=== PATIENT | female | born 1985 | race Caucasian/White ===

== ENCOUNTER 2020-06-30 12:27 | Outpatient (REF) | payer MEDICAID, SELFPAY ==
--- NOTE | 2020-06-30 12:32 | CT_ITS ---
EXAMINATION: CT ABDOMEN AND PELVIS WITH CONTRAST CLINICAL INFORMATION: Lower abdominal pain. COMPARISON: CT abdomen and pelvis without contrast 05/13/2015 TECHNIQUE: Multidetector volumetric images were obtained from the superior aspect of the liver through the pubic symphysis following administration 85 mL of Omnipaque 350 intravenous contrast. Sagittal and coronal reformatted images were obtained on the technologist's workstation. Oral contrast: No. This CT examination was performed using dose optimization techniques as appropriate, variously including the following: *Automated exposure control *Adjustment of mA and/or kV according to patient size (this includes techniques or standardized protocols for targeted exams where dose is matched to indication/reason for exam; i.e. extremities or head) *Use of iterative reconstruction technique DLP: 377 mGy-cm FINDINGS: LUNG BASES: The visualized lung bases are unremarkable. LIVER, GALLBLADDER AND BILIARY TREE: The liver is normal in size, shape and attenuation. No focal hepatic lesion or biliary ductal dilatation is present. The gallbladder is unremarkable with no evidence of radiopaque gallstones, gallbladder wall thickening or obvious pericholecystic inflammatory changes. PANCREAS: Unremarkable. SPLEEN: Unremarkable. ADRENAL GLANDS: Unremarkable. KIDNEYS AND URETERS: The kidneys are normal in size, shape and attenuation. No hydronephrosis, hydroureter or calculi seen. No perinephric stranding. BLADDER: The bladder is distended without any focal lesion. GASTROINTESTINAL TRACT: There is scattered stool seen throughout the colon without any significant distention. The small bowel loops are normal caliber. There is no free air or free fluid. ABDOMINAL WALL: No significant hernia is appreciated. LYMPH NODES: Normal. VASCULAR: Unremarkable. PELVIC VISCERA: The uterus is anteverted. There is a heterogenous lesion left body of uterus measuring 5.1 x 3.4 x 4.4 cm most consistent with a fibroid. This deviates the endometrial canal to the right and posteriorly. Just superior to the uterus are the ovaries which appear unremarkable. There are small follicular cysts within. There is no free fluid in the cul-de-sac OSSEOUS STRUCTURES: No lytic or sclerotic process seen. CT/CT abdomen pelvis w con IMPRESSION: Moderate size uterine fibroid deviating endometrial canal to the right and posteriorly. Mild constipation. Distended urinary bladder without any focal lesion.
[2020-06-30] MEDS: iohexoL 350 MG/ML 100 ML INFUS..BTL IV (15:45)
[2020-06-30] MEDS: Barium Sulfate Oral (Berry) 450 ML ORAL.SUSP 900 ML PO (15:46)
== END 2020-06-30 12:28 | disposition home or self-care (01) ==
LOC: HO.CT 12:27
PROVIDERS: PCP Internal Medicine; Visit Provider Nurse Practitioner
DX: R10.30 Lower abdominal pain, unspecified (principal)
CPT/HCPCS: 74177

== ENCOUNTER 2020-07-10 07:37 | Emergency (ER) | payer MEDICAID, SELFPAY ==
[2020-07-10 07:46] VITALS: BP 141/93; PULSE 100; RESP 17; TEMP 36.6; O2SAT 100; BMI 28.3
--- NOTE | 2020-07-10 08:03 | ED_ITS ---
HPI - General Adult General Chief complaint: General Medical Stated complaint: RASH Time Seen by Provider: 07/10/20 08:03 Mode of arrival: ambulatory Limitations: no limitations History of Present Illness HPI narrative: generalized body rash, rashes started after using Dulcolax suppository patient used 3 days ago for constipation, patient otherwise declined any change in the daily routine no change of detergent, no change of bed sheet, no new clothes. Patient tried prednisone course 10 mg daily for 3 days by her PCP and Benadryl with no relief of her symptoms, patient did not like the Benadryl effect on her body and hoping not to take it again. Onset (ago): day(s) (5) Location: back, abdomen, upper extremity and lower extremity Severity: moderate Pain Consistency: constant Relieving factors: none Exacerbating factors: none Associated symptoms: denies other symptoms Related Data Previous Rx's Medication Instructions Recorded prednisone 20 mg PO BID #10 tab 07/10/20 Allergies Allergy/AdvReac Type Severity Reaction Status Date / Time No Known Allergies Allergy Verified 07/10/20 07:49 Review of Systems Review of Systems: All other systems are reviewed and are negative Constitutional: Reports as per HPI and Reports no additional constitutional complaints Eyes: Reports as per HPI and Reports no additional eye complaints Reports system reviewed and no additional complaints, except as documented Cardiovascular: Reports as per HPI and Reports no additional cardiovascular complaints Respiratory: Reports as per HPI and Reports no additional respiratory complaints Gastrointestinal: Reports as per HPI and Reports no additional gastrointestinal complaints Genitourinary: Reports no additional female genitourinary complaints Musculoskeletal: Reports no additional musculoskeletal complaints Skin/Breast: Reports system reviewed and no additional complaints, except as docu Psychiatric: Reports no additional psychiatric complaints Endocrine: Reports no additional endocrine complaints Hematologic/Lymphatic: Reports no additional hematologic/lymphatic complaints Allergic/Immunologic: Reports no additional allergic/immunologic complaints Reports system reviewed and no additional complaints, except as documented and Reports Abnormal speech present COUNT INCLUDES THE [facility] Past Medical History Medical History No known health problems Social History Social History Advance Directives: Yes Advance Directives Information Provided: Yes Advance Directives on File: No Physical Exam Vital Signs: Vital Signs: Vital Signs Temp Pulse Resp BP Pulse Ox 07/10/20 07:46 97.8 F 100 17 141/93 H 100 Body Mass Index 28.3 vital signs have been reviewed as normal and appeared to be correct. Blood pressure On the high range. Heart rate normal. Respiration rate normal. Temperature normal. Oxygen saturation normal. Appearance: Alert. Oriented X3. No acute distress. Head: Normal external exam. Normocephalic. Atraumatic. No Mendez signs noted. No raccoon eyes noted Eyes: PERRLA. EOMI. Conjunctiva and sclera normal. Eyelids normal. ENT: EAC normal. TM's Normal. Pharynx normal. Uvula midline. Moist mucous membranes. No trismus noted. No drooling noted. No muffled voice noted. Neck: Normal inspection. Neck supple. FROM. No adenopathy. Thyroid Normal. No meningeal signs. No neck mass noted. Patent airway with no stridor. CVS: Normal heart rate and rhythm. Heart sound normal. No murmurs noted. Pulses normal throughout. Respiratory: No respiratory distress. Painless inspiration. Breath sounds normal. No wheezes/rales/rhonchi noted. Chest nontender. No accessory muscle usage noted or decreased air movement noted. Abdomen: Soft and nontender. Bowel sounds normal in all 4 quadrants. No distention noted. No organomegaly noted. No visible injury noted. Back: No CVA tenderness. Full range of motion noted. Skin: Skin warm and dry. Normal skin color. Normal skin turgor, diffuse hives on the extensor surface of both upper extremities in the back of the knee. Extremities: No lower extremity edema. Extremities exhibit normal range of motion. Extremities nontender. Neuro: Oriented X 3. No motor deficit. No sensory deficit. Reflexes normal. Medical Decision Making MDM Narrative Medical decision making narrative: Assessment and plan. 34-year-old female presented with 5 days history of diffuse hives after used 1 time of Ducolox suppository, patient declined any other change in her daily routine. Assuming that the offending agent is ducolox, patient was advised never use it again, patient used steroid for 3 days 20 mg daily with no relief will try another 5 days oral course of prednisone 40 mg daily, patient prefer not to use Benadryl again. Discharge Plan Discharge Clinical Impression: Urticaria Patient Disposition: Home, Self-Care Instructions: Urticaria (ED) Prescriptions: New prednisone 20 mg tablet 20 mg PO BID Qty: 10 RF: 0 Referrals: Eunice Warner MD [Primary Care Provider] - 2 days
== END 2020-07-10 08:16 | disposition home or self-care (01) ==
PROVIDERS: Emergency Provider Emergency Medicine; PCP Family Medicine
DX: L50.9 Urticaria, unspecified (principal)
CPT/HCPCS: 99283

== ENCOUNTER → 2020-07-14 11:44 | Outpatient (BNVA) | payer MEDICAID, SELFPAY | PROVIDERS: PCP Family Medicine; Referring Provider Family Medicine; Visit Provider Nurse Practitioner | DX: R13.10 Dysphagia, unspecified (principal); R10.30 Lower abdominal pain, unspecified; K21.9 Gastro-esophageal reflux disease without esophagitis; K59.04 Chronic idiopathic constipation; K64.9 Unspecified hemorrhoids; D25.9 Leiomyoma of uterus, unspecified | CPT/HCPCS: 99212 ==

== ENCOUNTER → 2020-08-01 12:31 | Outpatient (REF) | payer MEDICAID, SELFPAY ==
--- NOTE | 2020-08-01 12:38 | ECG_ITS ---
Hook-up date: 2020-08-01 12:49:00 Duration: 26:05:00 Test Indications: PALPITATIONS Medications: [id number] QRS complexes 2 Ventricular ectopics which represent <1 % of total QRS comp. 2 Supraventricular ectopics which represent <1 % of total QRS comp. * Paced QRS complexs which represent % of total QRS comp. VENTRICULAR ECTOPY 2 Isolated 0 Bigeminal Cycles 0 Couplets 0 Runs 0 Beats in Runs * Beats LONGEST at * BPM at :: -- * Beats FASTEST at * BPM at :: -- SUPRAVENTRICULAR ECTOPY 2 Isolated 0 Couplets 0 Runs 0 Beats in Runs * Beats LONGEST at * BPM at :: -- * Beats FASTEST at * BPM at :: -- HEART RATES 60 MIN at 05:01:18 2020-08-02 81 AVG 135 MAX at 05:53:40 2020-08-02 LONGEST RR 1.0160 secs at 05:04:28 2020-08-02 S-T LEVELS Channel 1 - 128 mm at 12:49:00 2020-08-01 - 128 mm at 12:49:00 2020-08-01 Channel 2 - 128 mm at 12:49:00 2020-08-01 - 128 mm at 12:49:00 2020-08-01 Channel 3 - 128 mm at 03:20:81 -- - 128 mm at 03:20:81 Basic rhythm Normal sinus rhythm No long pause or profound bradycardia No dangerous dysrhythm periods Patient did not report any symptoms in the diary Referred By: Jah Valle Overread By: SUGEY SMITH MD
== END ==
LOC: HO.CARD 12:31
PROVIDERS: PCP Family Medicine; Visit Provider Internal Medicine
DX: R00.2 Palpitations (principal)
CPT/HCPCS: 93225; 93226

== ENCOUNTER 2020-09-15 07:16 | Emergency (ER) | payer MEDICAID, SELFPAY ==
[2020-09-15 08:02] VITALS: BP 156/85; PULSE 93; RESP 16; TEMP 37.2; O2SAT 100; BMI 24.7
--- NOTE | 2020-09-15 08:27 | ED_ITS ---
HPI - General Adult General Chief complaint: General Medical Stated complaint: numbness, tingling hands feet Time Seen by Provider: 09/15/20 08:10 Source: patient Mode of arrival: ambulatory Limitations: no limitations History of Present Illness HPI narrative: Patient presents to ED for 7 days of numbness/tingling of hands and feet. Patient states also having posterior headache for 7 days. Patient denies any neck pain, neck stiffness, fever, chills, chest pain, shortness of breath, loss of vision, slurred speech, or paralysis of extremities. Denies Any recent head trauma. Patient admits to history of migraines. Related Data Home Medications Medication Instructions Recorded Confirmed docusate sodium 100 mg capsule 100 mg PO DAILY 07/13/20 07/13/20 methylcellulose (laxative) 500 mg 500 mg PO BID 07/13/20 07/13/20 tablet plecanatide 3 mg tablet 3 mg PO DAILY 07/13/20 07/13/20 Previous Rx's Medication Instructions Recorded prednisone 20 mg PO BID #10 tab 07/10/20 dexlansoprazole 60 mg 60 mg PO DAILY #30 cap 07/14/20 capsule,biphase delayed release hydrocortisone 2.5 % topical cream 1 applic ID BID PRN #30 g 07/14/20 with perineal applicator magnesium oxide 500 mg capsule 500 mg PO BID #60 cap 07/14/20 sennosides 8.6 mg capsule 17.2 mg PO BEDTIME 30 Days #60 cap 07/14/20 dicyclomine 10 mg capsule 10 mg PO QID PRN 30 Days #120 cap 08/25/20 hydrocortisone 2.5 % topical cream 1 appl ID BID PRN #30 g 08/25/20 with perineal applicator naproxen 500 mg PO BID PRN #20 tab 09/15/20 Allergies Allergy/AdvReac Type Severity Reaction Status Date / Time No Known Allergies Allergy Verified 07/14/20 11:49 Review of Systems Review of Systems: Yes all other systems are reviewed and are negative Constitutional: Constitutional: Reports as per HPI, Reports no additional constitutional complaints and Reports headache(s) Eyes: Eyes: Reports as per HPI and Reports no additional eye complaints ENT: Reports system reviewed and no additional complaints, except as documented, Reports as per HPI, Denies vertigo and Reports headache(s) Cardiovascular: Cardiovascular: Reports as per HPI, Reports no additional cardiovascular complaints, Denies chest pain, Denies syncope, Denies dyspnea and Denies dyspnea on exertion Respiratory: Respiratory: Reports as per HPI, Reports no additional respiratory complaints, Denies dyspnea and Denies dyspnea on exertion Gastrointestinal: Gastrointestinal: Reports as per HPI and Reports no additional gastrointestinal complaints Genitourinary: Genitourinary: Reports no additional female genitourinary complaints and Reports as per HPI Musculoskeletal: Musculoskeletal: Reports no additional musculoskeletal complaints, Reports as per HPI and Reports tingling (Hands and feet) Neurologic: Reports system reviewed and no additional complaints, except as documented, Reports as per HPI, Denies vertigo, Denies syncope, Reports headache(s), Reports tingling (Hands and feet) and Reports paresthesias (Ended) Psychiatric: Psychiatric: Reports no additional psychiatric complaints and Reports as per HPI [facility] Past Medical History Medical History (Updated 09/15/20 @ 12:07 by ONEL Herrera) Candidiasis of mouth and esophagus No known health problems Odynophagia Surgical History (Updated 07/14/20 @ 11:52 by NELLY Ram) History of esophagogastroduodenoscopy (EGD) Hx of colonoscopy Family History Family History (Updated 07/14/20 @ 11:54 by NELLY Ram) Father CVD (cardiovascular disease) Colon polyps Hypercholesteremia Diabetes Mother Thyroid condition CVD (cardiovascular disease) Fibromyalgia Heart problem Social History Social History (Updated 07/14/20 @ 11:55 by NELLY Ram) Alcohol intake: current Alcohol intake frequency: does not drink Smoking Status: Never smoker Smoked in Last 30 Days: No Use of substances other than those prescribed or required for medical reasons: No Advance Directives: No Advance Directives Information Provided: Yes Physical Exam Vital Signs: Vital Signs: Last Vital Signs Temp 98.8 F 09/15/20 10:21 Pulse 80 09/15/20 10:21 Resp 16 09/15/20 10:21 BP 103/58 L 09/15/20 10:21 Pulse Ox 100 09/15/20 10:21 Body Mass Index 24.7 Const: General: cooperative, healthy appearing, comfortable, no acute distress, well developed, alert, awake and Physically active Orientation/consciousness: patient oriented x3 HENMT: Head: Yes normal to inspection, Yes No palpable skull fracture present and Yes normocephalic Ears: hearing grossly normal bilaterally, external ears normal, TM's normal bilaterally and EAC's normal Eyes: Other: Negative for nystagmus General: appearance normal, both eyes and all related structures Neck: Neck: Yes normal visual inspection, Yes full ROM, Yes no lymphadenopathy, Yes no meningeal signs, Yes trachea midline, Yes supple and No tender Chest: Chest palpation & inspection: normal inspection of the chest and normal palpation of entire chest wall Resp: Effort & Inspection: normal respiratory effort and able to speak in complete sentences Auscultation: clear to auscultation bilaterally Cardio: Jugular venous distension: no JVD Heart sounds: S1 normal heart sound present and S2 normal heart sound present GI: Inspection: Yes normal to inspection and No abdominal wall ecchymosis Palpation (GI): Soft to palpation, not firm, nontender, no guarding and not rigid : General: No CVA tenderness and Yes no CVA tenderness Back/Spine/Pelvis: Back: no CVA tenderness, No CVA tenderness and No back tenderness Skin: General skin exam: no rashes or lesions noted and elasticity normal Neuro: Other: Negative facial droop. Negative pronator drift. Speech is no rmal. All extremities motor exam is intact and strength is equal. All extremities neurovascular exam is intact. Negative Romberg. Rapid hand movement is intact. [id number] movement is intact. General: patient oriented x3, gait normal, no meningeal signs and CN's II-XI intact bilaterally Cranial nerves: Yes CN's II-XII intact bilaterally Extrem: General: Yes normal to inspection and Yes full ROM Psych: Appearance: grossly normal, well kempt and not disheveled Course Course Course Narrative: Patient's history of migraine this presents as complicated rocco gina exacerbation. Patient will have head CT scan mentioned is no mass or bleed. Very unlikely this is a stroke. Neuro exam is intact. Not suspect a meningitis. Will draw labs to make sure there is no signs of electrolyte deficiency or dehydration. Reevaluation(s) Reevaluation #1: Patient's labs negative for any electrolyte abnormalities. Head CT scan came back negative for any stroke or bleed. Once again negative f or any neuro deficit. Patient will be given and Reglan. Patient's EKG came back normal. Troponin negative Time: 10:10 Reevaluation #2: Patient headache resolved after receiving meds. Patient informed to follow-up with neurology. Time: 10:55 Medical Decision Making MDM Narrative Medical decision making narrative: Migraine Lab Data Result diagrams: 09/15/20 08:41 09/15/20 08:41 Labs: Lab Results 09/15/20 09/15/20 09/15/20 Range/Units 08:41 08:41 08:41 WBC 8.0 (4.8-10.8) X10*3/uL RBC 4.74 (4.20-5.50) X10*6/uL Hgb 12.3 (12.0-16.0) g/dl Hct 36.9 L (37-47) % MCV 77.8 L (80-98) fL MCH 25.9 L (27.0-33.0) pg MCHC 33.3 (31.0-35.0) g/dl RDW 12.6 (11.0-16.0) % Plt Count 237 (160-400) X10*3/uL MPV 10.3 (9.4-12.3) fL Immature Gran % (Auto) 0.2 (0.0-0.4) % Neut % (Auto) 63.9 (45-73) % Lymph % (Auto) 28.3 (20-40) % Tucker % (Auto) 6.5 (2-11) % Eos % (Auto) 0.6 (0-4) % Baso % (Auto) 0.5 (0-2) % Lymph # (Auto) 2.3 (1.2-4.9) X10*3/uL Tucker # (Auto) 0.5 (0.1-1.2) X10*3/uL Eos # (Auto) 0.1 (0.0-0.4) X10*3/uL Baso # (Auto) 0.0 (0.0-0.2) X10*3/uL Abs Immat Gran (auto) 0.02 (0.00-0.03) X10*3/uL Absolute Neuts (auto) 5.1 (2.0-8.3) X10*3/uL Absolute Nucleated RBC 0.000 (0.0-0.012) X10*3/uL Nucleated RBC % (auto) 0.0 (0.0-0.2) /100WBC PT 13.1 H (10.8-13.0) SEC INR 1.1 (0.9-1.1) APTT 38.3 H (24.1-38.0) SEC Sodium 141 (135-145) mmol/L Potassium 4.4 (3.3-5.1) mmol/l Chloride 106 (96-108) mmol/L Carbon Dioxide 27 (22-29) mmol/L Anion Gap 12 (12-20) BUN 8 L (9-16) mg/dL Creatinine 0.68 (0.5-1.4) mg/dL Estim Creat Clear Calc 108.0 Estimated GFR > 60 Random Glucose 113 (60-115) mg/dL Calcium 9.2 (8.4-10.2) mg/dL Magnesium 1.8 (1.6-2.6) mg/dL Total Bilirubin 0.5 (0.0-1.0) mg/dL AST 15 (5-31) U/L ALT 14 (0-31) U/L Alkaline Phosphatase 67 (39-117) U/L Total Creatine Kinase 50 (26-140) U/L Troponin I High Sens (<3.5-17.0) ng/L Total Protein 7.2 (6.5-8.0) g/dL Albumin 4.2 (3.5-5.0) g/dL Beta HCG, Quant < 2 mIU/mL 09/15/20 Range/Units 11:14 WBC (4.8-10.8) X10*3/uL RBC (4.20-5.50) X10*6/uL Hgb (12.0-16.0) g/dl Hct (37-47) % MCV (80-98) fL MCH (27.0-33.0) pg MCHC (31.0-35.0) g/dl RDW (11.0-16.0) % Plt Count (160-400) X10*3/uL MPV (9.4-12.3) fL Immature Gran % (Auto) (0.0-0.4) % Neut % (Auto) (45-73) % Lymph % (Auto) (20-40) % Tucker % (Auto) (2-11) % Eos % (Auto) (0-4) % Baso % (Auto) (0-2) % Lymph # (Auto) (1.2-4.9) X10*3/uL Tucker # (Auto) (0.1-1.2) X10*3/uL Eos # (Auto) (0.0-0.4) X10*3/uL Baso # (Auto) (0.0-0.2) X10*3/uL Abs Immat Gran (auto) (0.00-0.03) X10*3/uL Absolute Neuts (auto) (2.0-8.3) X10*3/uL Absolute Nucleated RBC (0.0-0.012) X10*3/uL Nucleated RBC % (auto) (0.0-0.2) /100WBC PT (10.8-13.0) SEC INR (0.9-1.1) APTT (24.1-38.0) SEC Sodium (135-145) mmol/L Potassium (3.3-5.1) mmol/l Chloride (96-108) mmol/L Carbon Dioxide (22-29) mmol/L Anion Gap (12-20) BUN (9-16) mg/dL Creatinine (0.5-1.4) mg/dL Estim Creat Clear Calc Estimated GFR Random Glucose (60-115) mg/dL Calcium (8.4-10.2) mg/dL Magnesium (1.6-2.6) mg/dL Total Bilirubin (0.0-1.0) mg/dL AST (5-31) U/L ALT (0-31) U/L Alkaline Phosphatase (39-117) U/L Total Creatine Kinase (26-140) U/L Troponin I High Sens < 3.5 (<3.5-17.0) ng/L Total Protein (6.5-8.0) g/dL Albumin (3.5-5.0) g/dL Beta HCG, Quant mIU/mL ECG Data Interpretation: Normal sinus rhythm. Ventricular rate 75. ID interval 160. QRS duration 86. QTC 422. Negative STEMI Discharge Plan Discharge Clinical Impression: Paresthesia, Migraine, Headache Patient Disposition: Home, Self-Care Instructions: Migraine Headache (ED), Paresthesia (ED), General Headache (ED) Additional Instructions: Return to the ED for any slurred speech, loss of vision, paralysis of extremities, weakness, or signing headache, or any other concerning symptoms. Prescriptions: New naproxen 500 mg tablet 500 mg PO BID PRN (Reason: pain) Qty: 20 RF: 0 No Action dicyclomine 10 mg capsule 10 mg PO QID PRN (Reason: for cramps) 30 Days Qty: 120 RF: 3 prednisone 20 mg tablet 20 mg PO BID Qty: 10 RF: 0 Trulance 3 mg tablet 3 mg PO DAILY RF: 0 docusate sodium [Colace] 100 mg capsule 100 mg PO DAILY RF: 0 Citrucel 500 mg tablet 500 mg PO BID RF: 0 magnesium oxide 500 mg capsule 500 mg PO BID Qty: 60 RF: 6 senna 8.6 mg capsule 17.2 mg PO BEDTIME 30 Days Qty: 60 RF: 1 hydrocortisone [Anusol-HC] 2.5 % cream with perineal applicator 1 applic ID BID PRN (Reason: hemorrhoids) Qty: 30 RF: 3 Dexilant 60 mg capsule,biphase delayed releas 60 mg PO DAILY Qty: 30 RF: 6 hydrocortisone [Proctosol HC] 2.5 % cream with perineal applicator 1 appl ID BID PRN (Reason: hemorrhoids) Qty: 30 RF: 3 Referrals: Abhijeet Oconnell MD [Physician] - 2 days (Paresthesia/migraine headache. Past medical history of migraine. Seen in the ED for headache and paresthesia. Head CT scan came back normal. Labs came back negative for electrolyte de ficiency. Neuro exam is intact) Stand Alone Forms: Work/School Release Interventions: ED Discharge Assessment Last Done: 09/15/20 12:35 Discharge Date/Time: 09/15/20 12:36 Print Language: Malaysian
--- NOTE | 2020-09-15 08:28 | CT_ITS ---
EXAMINATION: CT HEAD WITHOUT CONTRAST CLINICAL INFORMATION: Persistent headache, 7 days COMPARISON: CT head noncontrast 09/23/2019 TECHNIQUE: Contiguous axial imaging was performed from the skull base to vertex without intravenous administration of contrast. Additional 2-D coronal and sagittal reformatted images are generated on the CT workstation and uploaded to PACS. This CT examination was performed using dose optimization techniques as appropriate, variously including the following: *Automated exposure control *Adjustment of mA and/or kV according to patient size (this includes techniques or standardized protocols for targeted exams where dose is matched to indication/reason for exam; i.e. extremities or head) *Use of iterative reconstruction technique DLP: 611 mGy-cm FINDINGS: There is no intracranial hemorrhage, hematoma, or extra-axial fluid collection. The ventricles are normal in size. There is no hydrocephalus, edema, or mass effect. The harrell-white matter differentiation appears symmetric. There is no visible acute territorial infarct or mass lesion. The calvarium appears intact. There is no pneumocephalus or orbital emphysema. The visualized sinuses and middle ears and mastoid air cells show no significant mucosal thickening. There are no air-fluid levels. CT/CT head/brain wo con IMPRESSION: No acute intracranial abnormality.
[2020-09-15] MEDS: 0.9 % Sodium Chloride 1,000 ML 999 ML IV (08:41)
[2020-09-15 08:52] LABS: Basophils Percent Auto 0.5 % (0-2); Eosinophils Absolute Auto 0.1 X10*3/uL (0.0-0.4); Eosinophils Percent Auto 0.6 % (0-4); Hematocrit 36.9 % (37-47); Hemoglobin 12.3 g/dl (12.0-16.0); Imm Gran Abs Auto 0.02 X10*3/uL (0.00-0.03); Imm Gran Pct Auto 0.2 % (0.0-0.4); Lymphocytes Absolute Auto 2.3 X10*3/uL (1.2-4.9); Lymphocytes Percent Auto 28.3 % (20-40); MANUAL DIFF FLAG NO; Mean Corpuscular HGB Conc 33.3 g/dl (31.0-35.0); Mean Corpuscular Hemoglobin 25.9 pg (27.0-33.0); Mean Corpuscular Volume 77.8 fL (80-98); Mean Platelet Volume 10.3 fL (9.4-12.3); Monocytes Absolute Auto 0.5 X10*3/uL (0.1-1.2); Monocytes Percent Auto 6.5 % (2-11); Neutrophils Absolute Auto 5.1 X10*3/uL (2.0-8.3); Neutrophils Percent Auto 63.9 % (45-73); Platelet Count 237 X10*3/uL (160-400); Red Blood Count 4.74 X10*6/uL (4.20-5.50); Red Cell Distribution Width 12.6 % (11.0-16.0)
[2020-09-15 09:00] LABS: INTERNATIONAL NORM RATIO 1.1 (0.9-1.1); Prothrombin Time 13.1 SEC (10.8-13.0)
[2020-09-15 09:03] LABS: Partial Thromboplastin Time 38.3 SEC (24.1-38.0)
[2020-09-15 09:17] LABS: Alanine Aminotransferase 14 U/L (0-31); Albumin Level 4.2 g/dL (3.5-5.0); Alkaline Phosphatase 67 U/L (39-117); Anion Gap 12 (12-20); Aspartate Amino Transferase 15 U/L (5-31); Bilirubin Total 0.5 mg/dL (0.0-1.0); Blood Urea Nitrogen 8 mg/dL (9-16); Calcium 9.2 mg/dL (8.4-10.2); Carbon Dioxide 27 mmol/L (22-29); Chloride 106 mmol/L (96-108); Estimated Glomerular Filt Rate > 60; Glucose Random 113 mg/dL (60-115); Magnesium 1.8 mg/dL (1.6-2.6); Potassium 4.4 mmol/l (3.3-5.1); Sodium 141 mmol/L (135-145); Total Protein 7.2 g/dL (6.5-8.0)
[2020-09-15 09:23] LABS: HCG Quantitative < 2 mIU/mL
[2020-09-15 10:21] VITALS: BP 103/58; PULSE 80; RESP 16; TEMP 37.1; O2SAT 100
[2020-09-15] MEDS: Ketorolac Tromethamine 30 MG/ML VIAL IVPUSH (10:23)
[2020-09-15] MEDS: Metoclopramide HCl 10 MG/2 ML VIAL IVPUSH (10:23)
--- NOTE | 2020-09-15 10:55 | ECG_ITS ---
Test Reason : BACK PAIN Blood Pressure : / mmHG Vent. Rate : 075 BPM Atrial Rate : 075 BPM P-R Int : 160 ms QRS Dur : 086 ms QT Int : 378 ms P-R-T Axes : 070 046 022 degrees QTc Int : 422 ms Normal sinus rhythm with sinus arrhythmia Normal ECG When compared with ECG of 29-JUL-2019 09:27, No significant change was found Referred By: Td Hernandez Electronically Signed By:Eze Phan
[2020-09-15 11:52] LABS: Troponin-I High Sensitivity < 3.5 ng/L (<3.5-17.0)
== END 2020-09-15 12:36 | disposition home or self-care (01) ==
PROVIDERS: Physician Assistant; Emergency Provider Emergency Medicine Emergency Medical Services; PCP Internal Medicine
DX: R20.2 Paresthesia of skin (principal); G43.909 Migraine, unspecified, not intractable, without status migrainosus
CPT/HCPCS: 36415; 70450; 80053; 82550; 83735; 84484; 84702; 85025; 85610; 85730; 93005; 96361; 96374; 96375; 99284; J1885; J2765

== ENCOUNTER → 2020-10-06 14:31 | Outpatient (BNVA) | payer MEDICAID, SELFPAY | PROVIDERS: PCP Internal Medicine; Visit Provider Nurse Practitioner ==

== ENCOUNTER 2020-10-12 08:54 | Outpatient (REF) | payer MEDICAID, SELFPAY ==
--- NOTE | 2020-10-12 | FL_ITS ---
EXAMINATION: FL UPPER GI AIR-CONTRAST STUDY WITH SMALL BOWEL FOLLOW-THROUGH CLINICAL INFORMATION: Lower abdominal pain. COMPARISON: None. TECHNIQUE: Upper GI air contrast study with small bowel follow-through. FINDINGS: Physical Therapy Instructor view of the abdomen reveals scattered stool and gas in the colon. No radiopaque calculi seen. There is no gross organomegaly. Visualized bones are unremarkable. Following oral administration of thick barium and effervescent granules, there is normal propagation of bolus from the oral cavity through the pharynx and esophagus and into the stomach without any evidence of obstruction, narrowing or stricture. On placing patient supine and prone lying, the course, caliber and peristalsis of the stomach are normal. The mucosal pattern of the esophagus and the stomach is normal. Sequential images of small bowel loops reveals the course, caliber and peristalsis of the small bowel is normal. No mucosal irregularity of mural thickening seen. The ileocecal junction and the cecum is normal. The appendix is not seen. Patient has no history of appendectomy. FL/FL small bowel follow through IMPRESSION: Unremarkable upper GI air-contrast study. Normal small bowel transit time of less than 90 minutes. No significant small bowel abnormality seen. Appendix was not seen. FLUOROSCOPY TIME: 0.8 minutes. DOSE AREA PRODUCT: 6.182 minutes. IMAGES: 10.
--- NOTE | 2020-10-12 08:56 | FL_ITS ---
EXAMINATION: FL UPPER GI AIR-CONTRAST STUDY WITH SMALL BOWEL FOLLOW-THROUGH CLINICAL INFORMATION: Lower abdominal pain. COMPARISON: None. TECHNIQUE: Upper GI air contrast study with small bowel follow-through. FINDINGS: Lead Network Engineer view of the abdomen reveals scattered stool and gas in the colon. No radiopaque calculi seen. There is no gross organomegaly. Visualized bones are unremarkable. Following oral administration of thick barium and effervescent granules, there is normal propagation of bolus from the oral cavity through the pharynx and esophagus and into the stomach without any evidence of obstruction, narrowing or stricture. On placing patient supine and prone lying, the course, caliber and peristalsis of the stomach are normal. The mucosal pattern of the esophagus and the stomach is normal. Sequential images of small bowel loops reveals the course, caliber and peristalsis of the small bowel is normal. No mucosal irregularity of mural thickening seen. The ileocecal junction and the cecum is normal. The appendix is not seen. Patient has no history of appendectomy. FL/FL upper GI w air IMPRESSION: Unremarkable upper GI air-contrast study. Normal small bowel transit time of less than 90 minutes. No significant small bowel abnormality seen. Appendix was not seen. FLUOROSCOPY TIME: 0.8 minutes. DOSE AREA PRODUCT: 6.182 minutes. IMAGES: 10.
== END 2020-10-12 08:55 | disposition home or self-care (01) ==
LOC: HO.XRAY 08:54
PROVIDERS: PCP Internal Medicine; Visit Provider Nurse Practitioner
DX: R10.30 Lower abdominal pain, unspecified (principal); K59.04 Chronic idiopathic constipation
CPT/HCPCS: 74246; 74248; 74250

== ENCOUNTER → 2020-11-11 10:57 | Outpatient (BNVA) | payer MEDICAID, SELFPAY | PROVIDERS: PCP Internal Medicine; Visit Provider Nurse Practitioner ==

== ENCOUNTER 2020-12-06 09:17 | Outpatient (REF) | payer MEDICAID, SELFPAY ==
--- NOTE | ~2020-12-06 | US_ITS ---
EXAMINATION: US ABDOMEN LIMITED CLINICAL INFORMATION: Right upper quadrant pain. COMPARISON: CT abdomen pelvis 06/30/2020. X-ray abdomen 10/19/2019. Ultrasound abdomen 07/11/2015 and 03/11/2015. TECHNIQUE: Real-time imaging of the right upper quadrant abdominal viscera. FINDINGS: PANCREAS: Normal. LIVER: The liver is normal in size. The liver contour is normal. There is increased hepatic echogenicity. No focal hepatic lesion. There is no intrahepatic biliary duct dilatation seen. GALLBLADDER: Normal. The gallbladder is physiologically distended without evidence of stones, sludge, polyps, wall thickening or pericholecystic fluid. COMMON BILE DUCT: Normal in caliber measuring 0.5 cm in diameter. RIGHT KIDNEY: Normal. No hydronephrosis. No renal calculi or focal parenchymal lesions. The kidney measures 10.3 cm in maximum dimension. FREE FLUID: None. US/US abdomen limited IMPRESSION: Mild hepatic steatosis without focal lesion. The rest of the limited abdominal ultrasound is unremarkable.
== END 2020-12-06 09:18 | disposition home or self-care (01) ==
LOC: HO.US 09:17
PROVIDERS: Visit Provider Nurse Practitioner
DX: R10.11 Right upper quadrant pain (principal)
CPT/HCPCS: 76705

== ENCOUNTER 2020-12-13 14:39 | Outpatient (REF) | payer MEDICAID, SELFPAY ==
[2020-12-13 16:13] LABS: Glucose Urine UA NEG (NEG); Leukocyte Esterase Urine NEG (NEG); Nitrite Urine NEG (NEG); PH 7.5 (5.0-8.0); Urine Blood NEG (NEG); Urine Ketones 5 MG/DL (NEG); Urine Protein NEG (NEG-TRACE)
[2020-12-13 16:18] LABS: Appearance Urine CLEAR; Color Urine YELLOW
[2020-12-13 16:37] LABS: Amylase 92 U/L (28-100); Lipase 26 U/L (8-78)
[2020-12-14 13:02] LABS: Transglutaminase Ab IgG 2 U/mL; Transglutaminase IgA 1 U/mL
[2020-12-14 13:21] LABS: Gliadin Deamidated IgA Ab 2 Units; Gliadin Deamidated IgG Ab 2 Units
== END 2020-12-13 14:40 | disposition home or self-care (01) ==
LOC: HO.LAB 14:39
PROVIDERS: PCP Internal Medicine; Visit Provider Nurse Practitioner
DX: K21.9 Gastro-esophageal reflux disease without esophagitis (principal); K59.04 Chronic idiopathic constipation; R13.10 Dysphagia, unspecified; R10.11 Right upper quadrant pain; B37.0 Candidal stomatitis; B37.81 Candidal esophagitis
CPT/HCPCS: 36415; 81003; 82150; 83516; 83690; 99212

== ENCOUNTER 2020-12-29 08:46 | Outpatient (REF) | payer MEDICAID, SELFPAY ==
[2020-12-29 11:18] LABS: C Reactive Protein 0.52 mg/dL (< or = 0.50)
[2020-12-29 11:20] LABS: Thyroid Stimulating Hormone 1.01 uIU/mL (0.32-4.0)
[2020-12-29 11:30] LABS: Rheumatoid Factor < 15.0 IU/mL (<15.0)
[2020-12-29 12:15] LABS: Erythrocyte Sedimentation Rate 23 MM/HR (0-20)
[2020-12-30 12:33] LABS: Antibody to SS-A Antigen <1.0 NEG AI (<1.0 NEG); Antibody to SS-B Antigen <1.0 NEG AI (<1.0 NEG)
[2020-12-30 22:42] LABS: Anti Nuclear Antibody Screen POSITIVE (NEGATIVE)
[2021-01-03 12:02] LABS: Cyclic Citrullinated Peptide <16 UNITS
[2021-01-05 17:06] LABS: Vitamin D 25-OH, D2 <4 ng/mL; Vitamin D 25-OH, D3 25 ng/mL; Vitamin D 25-OH, Total 25 ng/mL (30-100)
== END 2020-12-29 08:47 | disposition home or self-care (01) ==
LOC: HO.LAB 08:46
PROVIDERS: PCP Internal Medicine; Visit Provider Student in an Organized Health Care Education/Training Program
DX: M25.50 Pain in unspecified joint (principal); Z79.899 Other long term (current) drug therapy
CPT/HCPCS: 36415; 82306; 84443; 85652; 86038; 86039; 86140; 86200; 86235; 86431; 99202

== ENCOUNTER → 2021-01-19 13:21 | Outpatient (BNVA) | payer MEDICAID, SELFPAY | PROVIDERS: Visit Provider Nurse Practitioner ==

== ENCOUNTER 2021-01-31 13:32 | Outpatient (REF) | payer MEDICAID, SELFPAY ==
--- NOTE | ~2021-01-31 | XR_ITS ---
EXAMINATION: XR CERVICAL SPINE CLINICAL INFORMATION: Dysphagia, unspecified. COMPARISON: Barium swallow and upper GI 10/12/2020, radiographs cervical spine 07/15/2013 TECHNIQUE: Three views of the cervical spine were obtained. FINDINGS: There is straightening and mild reversal of cervical lordosis with mild rightward tilting on AP view, similar to prior exam 2012. The odontoid appears intact. The vertebral bodies are normal in height. There is no cervical vertebral compression, spondylolisthesis, destructive process, or prevertebral soft tissue swelling. Degenerative disc changes are present at C4-C5 and C5-C6 with mild disc narrowing and vertebral spurring. No cervical rib. Visualized lung apices clear. XR/XR cervical spine 3V IMPRESSION: Degenerative disc changes C4-C5 and C5-C6.
--- NOTE | ~2021-01-31 | XR_ITS ---
EXAMINATION: XR THORACOLUMBAR SPINE CLINICAL INFORMATION: Pain. COMPARISON: Cervical spine radiographs 01/31/2021, 07/15/2013, chest radiographs 07/29/2019. TECHNIQUE: Thoracic spine is imaged in 3 views FINDINGS: There is normal thoracic segmentation with 12 rib-bearing thoracic vertebrae of normal height and normal thoracic kyphosis. There is a mild dextrocurvature lower thoracic spine similar to chest radiograph 2019. There is no thoracic vertebral compression, spondylolisthesis, destructive process, or paraspinal soft tissue swelling. There are mild degenerative disc changes T7-T8 and T8-T9 with borderline disc narrowing and vertebral spurring similar to chest radiograph 2019. Visualized lungs appear clear. XR/XR thoracic spine 2V IMPRESSION: 1. Mild dextrocurvature lower thoracic spine. 2. Mild degenerative disc changes T7-T9. 3. No vertebral compression, spondylolisthesis, or destructive process.
[2021-01-31 14:44] LABS: MANUAL DIFF FLAG NO
[2021-01-31 14:48] LABS: Basophils Absolute Auto 0.1 X10*3/uL (0.0-0.2); Basophils Percent Auto 0.7 % (0-2); Eosinophils Absolute Auto 0.1 X10*3/uL (0.0-0.4); Eosinophils Percent Auto 0.9 % (0-4); Hematocrit 36.3 % (37-47); Hemoglobin 11.7 g/dl (12.0-16.0); Imm Gran Abs Auto 0.03 X10*3/uL (0.00-0.03); Imm Gran Pct Auto 0.3 % (0.0-0.4); Lymphocytes Absolute Auto 2.7 X10*3/uL (1.2-4.9); Lymphocytes Percent Auto 29.2 % (20-40); Mean Corpuscular HGB Conc 32.2 g/dl (31.0-35.0); Mean Corpuscular Hemoglobin 25.3 pg (27.0-33.0); Mean Corpuscular Volume 78.6 fL (80-98); Mean Platelet Volume 10.3 fL (9.4-12.3); Monocytes Absolute Auto 0.5 X10*3/uL (0.1-1.2); Monocytes Percent Auto 5.1 % (2-11); Neutrophils Absolute Auto 5.9 X10*3/uL (2.0-8.3); Neutrophils Percent Auto 63.8 % (45-73); Platelet Count 278 X10*3/uL (160-400); Red Blood Count 4.62 X10*6/uL (4.20-5.50); Red Cell Distribution Width 13.2 % (11.0-16.0); White Blood Count 9.2 X10*3/uL (4.8-10.8)
[2021-01-31 15:09] LABS: Alanine Aminotransferase 15 U/L (0-31); Albumin Level 4.4 g/dL (3.5-5.0); Alkaline Phosphatase 75 U/L (39-117); Anion Gap 13 (12-20); Aspartate Amino Transferase 13 U/L (5-31); Bilirubin Total 0.4 mg/dL (0.0-1.0); Blood Urea Nitrogen 9 mg/dL (9-16); Calcium 9.8 mg/dL (8.4-10.2); Carbon Dioxide 28 mmol/L (22-29); Chloride 105 mmol/L (96-108); Estimated Glomerular Filt Rate > 60; Glucose Random 101 mg/dL (60-115); Potassium 4.7 mmol/L (3.3-5.1); Sodium 141 mmol/L (135-145); Total Protein 7.4 g/dL (6.5-8.0)
[2021-01-31 15:30] LABS: Thyroid Stimulating Hormone 1.61 uIU/mL (0.32-4.0)
[2021-02-01 09:51] LABS: Thyroglobulin Antibodies 1 IU/mL (< or = 1); Thyroid Peroxidase Antibodies 4 IU/mL (<9)
[2021-02-01 10:42] LABS: Complement C3 135 mg/dL (83-193)
[2021-02-01 13:32] LABS: Anti DNA DS Antibody 1 IU/mL; SM/Ribonucleoprotein Ab <1.0 NEG AI (<1.0 NEG); Smith Protein <1.0 NEG AI (<1.0 NEG)
== END 2021-01-31 13:33 | disposition home or self-care (01) ==
LOC: HO.LAB 13:32
PROVIDERS: PCP Internal Medicine; Visit Provider Student in an Organized Health Care Education/Training Program
DX: M25.50 Pain in unspecified joint (principal); M54.2 Cervicalgia; R76.8 Other specified abnormal immunological findings in serum; Z79.899 Other long term (current) drug therapy
CPT/HCPCS: 36415; 72040; 72070; 80053; 84443; 85025; 86160; 86225; 86235; 86376; 86800; 99212

== ENCOUNTER 2021-03-19 07:08 | Emergency (ER) | payer MEDICAID, SELFPAY ==
--- NOTE | ~2021-03-19 | XR_ITS ---
EXAMINATION: XR CHEST CLINICAL INFORMATION: Chest pain COMPARISON: 07/29/2019 TECHNIQUE: Frontal view of the chest was obtained. FINDINGS: No focal consolidation, pulmonary edema, or pleural effusion. Stable cardiomediastinal silhouette. XR/XR chest 1V IMPRESSION: No acute cardiopulmonary findings.
--- NOTE | 2021-03-19 07:47 | ECG_ITS ---
Test Reason : CHEST PAIN Blood Pressure : / mmHG Vent. Rate : 072 BPM Atrial Rate : 072 BPM P-R Int : 166 ms QRS Dur : 078 ms QT Int : 392 ms P-R-T Axes : 064 032 008 degrees QTc Int : 429 ms Normal sinus rhythm Normal ECG When compared with ECG of 15-SEP-2020 11:44, No significant change was found Referred By: Casi Childers Electronically Signed By:SHANNAN LEES
--- NOTE | 2021-03-19 07:49 | ED_ITS ---
HPI - Abdominal Pain General Chief Complaint: Chest Pain Stated Complaint: REFLEX Time Seen by Provider: 03/19/21 07:47 Source: patient and family (Significant other) Mode of arrival: ambulatory Limitations: no limitations History of Present Illness HPI narrative: 35-year-old female came in for evaluation of epigastric/chest pain. Epigastric/chest pain started minutes ago, described as intermittent, feels like sharp pain in the epigastric and mid sternal hernia, pain is only with food (all kinds of food), with the pain patient feels palpitation and difficulty swallowing, patient also feels dizzy when she has the pain. Pain will be relieved spontaneously after few minutes. Patient has been evaluated by [facility] for this symptoms patient had workup for GERD and the bladder disease. Related Data Home Medications Medication Instructions Recorded Confirmed methylcellulose (laxative) 500 mg 500 mg PO BID 07/13/20 07/13/20 tablet plecanatide 3 mg tablet 3 mg PO DAILY 07/13/20 07/13/20 Previous Rx's Medication Instructions Recorded magnesium oxide 500 mg capsule 500 mg PO BID #60 cap 07/14/20 hydrocortisone 2.5 % topical cream 1 appl HI BID PRN #30 g 08/25/20 with perineal applicator naproxen 500 mg PO BID PRN #20 tab 09/15/20 dicyclomine 10 mg capsule 20 mg PO QID 30 Days #240 cap 11/11/20 ihgfac-emeoniri-rxaxqpl 1 cap PO QID 30 Days #120 cap 12/13/20 24,000-76,000-120,000 unit capsule,delayed rel simethicone 180 mg capsule 180 mg PO QID 30 Days #120 cap 12/13/20 bisacodyl 5 mg tablet,delayed 10 mg PO BEDTIME 30 Days #60 tab 01/19/21 release lansoprazole 30 mg capsule,delayed 30 mg PO BID 30 Days #60 cap 01/19/21 release Allergies Allergy/AdvReac Type Severity Reaction Status Date / Time No Known Allergies Allergy Verified 01/31/21 13:36 Review of Systems Review of Systems All other systems are reviewed and are negative Constitutional: Reports as per HPI and Reports no additional constitutional complaints Eyes: Reports as per HPI and Reports no additional eye complaints Reports system reviewed and no additional complaints, except as documented Cardiovascular: Reports as per HPI and Reports no additional cardiovascular complaints Respiratory: Reports as per HPI and Reports no additional respiratory complaints Gastrointestinal: Reports as per HPI and Reports no additional gastrointestinal complaints Genitourinary: Reports no additional female genitourinary complaints Musculoskeletal: Reports no additional musculoskeletal complaints Skin/Breast: Reports system reviewed and no additional complaints, except as docu Psychiatric: Reports no additional psychiatric complaints Endocrine: Reports no additional endocrine complaints Hematologic/Lymphatic: Reports no additional hematologic/lymphatic complaints Allergic/Immunologic: Reports no additional allergic/immunologic complaints Reports system reviewed and no additional complaints, except as documented and Reports Abnormal speech present Physical Exam Vital Signs: Vital Signs: Last Vital Signs Temp 98 F 03/19/21 08:00 Pulse 80 03/19/21 08:00 Resp 16 03/19/21 08:00 BP 116/69 03/19/21 08:00 Pulse Ox 99 03/19/21 08:00 Body Mass Index 28.3 Vital signs have been reviewed as appeared to be correct. Blood pressure normal. Heart rate normal. Respiration rate normal. Temperature normal. Oxygen saturation normal. Appearance: Alert. Oriented X3. No acute distress. Head: Normal external exam. Normocephalic. Atraumatic. No Mendez signs noted. No raccoon eyes noted Eyes: PERRLA. EOMI. Conjunctiva and sclera normal. Eyelids normal. ENT: TM's Normal. Pharynx normal. Uvula midline. Moist mucous membranes. No trismus noted. No drooling noted. No muffled voice noted. Neck: Normal inspection. Neck supple. FROM. No adenopathy. Thyroid Normal. No meningeal signs. No neck mass noted. CVS: Normal heart rate and rhythm. Heart sound normal. No murmurs noted. Pulses normal throughout. Respiratory: No respiratory distress. Painless inspiration. Breath sounds normal. No wheezes/rales/rhonchi noted. Chest nontender. No accessory muscle usage noted or decreased air movement noted. Abdomen: Soft, epigastric tenderness, no rebound, no guarding. Bowel sounds normal in all 4 quadrants. No distention noted. No organomegaly noted. No visible injury noted. Back: No CVA tenderness. Full range of motion noted. Skin: Skin warm and dry. Normal skin color. Normal skin turgor. No rashes/lesions/lacerations noted. Extremities: No lower extremity edema. Extremities exhibit normal range of motion. Extremities nontender. Neuro: Oriented X 3. No motor deficit. No sensory deficit. Reflexes normal. Course Course Course Narrative: 35 years old female with history of GERD came in with epigastric pain with food. Also complain of palpitation Patient has unremarkable labs, and EKG. Will reassure and follow-up with GI for further evaluation. MDM - Abdominal Pain Lab Data Attestation: I reviewed the patient's lab results. Result diagrams: 03/19/21 08:00 03/19/21 08:00 Labs: Lab Results 03/19/21 03/19/21 03/19/21 Range/Units 08:00 08:00 08:00 WBC 8.4 (4.8-10.8) X10*3/uL RBC 4.95 (4.20-5.50) X10*6/uL Hgb 12.7 (12.0-16.0) g/dl Hct 38.5 (37-47) % MCV 77.8 L (80-98) fL MCH 25.7 L (27.0-33.0) pg MCHC 33.0 (31.0-35.0) g/dl RDW 12.9 (11.0-16.0) % Plt Count 235 (160-400) X10*3/uL MPV 10.2 (9.4-12.3) fL Immature Gran % (Auto) 0.2 (0.0-0.4) % Neut % (Auto) 61.1 (45-73) % Lymph % (Auto) 30.1 (20-40) % [place] % (Auto) 6.7 (2-11) % Eos % (Auto) 1.3 (0-4) % Baso % (Auto) 0.6 (0-2) % Lymph # (Auto) 2.5 (1.2-4.9) X10*3/uL [place] # (Auto) 0.6 (0.1-1.2) X10*3/uL Eos # (Auto) 0.1 (0.0-0.4) X10*3/uL Baso # (Auto) 0.1 (0.0-0.2) X10*3/uL Abs Immat Gran (auto) 0.02 (0.00-0.03) X10*3/uL Absolute Neuts (auto) 5.1 (2.0-8.3) X10*3/uL Absolute Nucleated RBC 0.000 (0.0-0.012) X10*3/uL Nucleated RBC % (auto) 0.0 (0.0-0.2) /100WBC Sodium 141 (135-145) mmol/L Potassium 4.6 (3.3-5.1) mmol/L Chloride 105 (96-108) mmol/L Carbon Dioxide 25 (22-29) mmol/L Anion Gap 16 (12-20) BUN 11 (9-16) mg/dL Creatinine 0.75 (0.5-1.4) mg/dL Estim Creat Clear Calc 98.9 Estimated GFR > 60 Random Glucose 119 H (60-115) mg/dL Calcium 9.8 (8.4-10.2) mg/dL Troponin I High Sens < 3.5 (<3.5-17.0) ng/L Lipase 24 (8-78) U/L Urine Color Urine Appearance Urine pH (5.0-8.0) Ur Specific [place] (1.005-1.025) Urine Protein (NEG-TRACE) MG/DL Urine Glucose (UA) (NEG) MG/DL Urine Ketones (NEG) MG/DL Urine Blood (NEG) Urine Nitrite (NEG) Ur Leukocyte Esterase (NEG) Urine RBC (0) /HPF Urine WBC (0-4) /HPF Ur Squamous Epith Cells /LPF Urine Bacteria /LPF Urine Mucus /LPF 03/19/21 Range/Units 08:11 WBC (4.8-10.8) X10*3/uL RBC (4.20-5.50) X10*6/uL Hgb (12.0-16.0) g/dl Hct (37-47) % MCV (80-98) fL MCH (27.0-33.0) pg MCHC (31.0-35.0) g/dl RDW (11.0-16.0) % Plt Count (160-400) X10*3/uL MPV (9.4-12.3) fL Immature Gran % (Auto) (0.0-0.4) % Neut % (Auto) (45-73) % Lymph % (Auto) (20-40) % [place] % (Auto) (2-11) % Eos % (Auto) (0-4) % Baso % (Auto) (0-2) % Lymph # (Auto) (1.2-4.9) X10*3/uL [place] # (Auto) (0.1-1.2) X10*3/uL Eos # (Auto) (0.0-0.4) X10*3/uL Baso # (Auto) (0.0-0.2) X10*3/uL Abs Immat Gran (auto) (0.00-0.03) X10*3/uL Absolute Neuts (auto) (2.0-8.3) X10*3/uL Absolute Nucleated RBC (0.0-0.012) X10*3/uL Nucleated RBC % (auto) (0.0-0.2) /100WBC Sodium (135-145) mmol/L Potassium (3.3-5.1) mmol/L Chloride (96-108) mmol/L Carbon Dioxide (22-29) mmol/L Anion Gap (12-20) BUN (9-16) mg/dL Creatinine (0.5-1.4) mg/dL Estim Creat Clear Calc Estimated GFR Random Glucose (60-115) mg/dL Calcium (8.4-10.2) mg/dL Troponin I High Sens (<3.5-17.0) ng/L Lipase (8-78) U/L Urine Color YELLOW Urine Appearance HAZY Urine pH 6.0 (5.0-8.0) Ur Specific [place] >= 1.030 H (1.005-1.025) Urine Protein TRACE (NEG-TRACE) MG/DL Urine Glucose (UA) NEG (NEG) MG/DL Urine Ketones NEG (NEG) MG/DL Urine Blood NEG (NEG) Urine Nitrite NEG (NEG) Ur Leukocyte Esterase TRACE H (NEG) Urine RBC 0-2 (0) /HPF Urine WBC 1-4 (0-4) /HPF Ur Squamous Epith Cells 2+ /LPF Urine Bacteria 1+ /LPF Urine Mucus 2+ /LPF Imaging Data Chest x-ray: Radiologist's impression: No acute cardiopulmonary findings. ECG Data Interpretation: Normal sinus rhythm at 72 beats per minutes, normal axis deviation, normal intervals, no ST-T changes. Discharge Plan Discharge Clinical Impression: GERD (gastroesophageal reflux disease) Patient Disposition: Home, Self-Care Instructions: Gastroesophageal Reflux Disease (ED) Prescriptions: No Action naproxen 500 mg tablet 500 mg PO BID PRN (Reason: pain) Qty: 20 RF: 0 dicyclomine 10 mg capsule 20 mg PO QID 30 Days Qty: 240 RF: 3 Trulance 3 mg tablet 3 mg PO DAILY RF: 0 Citrucel 500 mg tablet 500 mg PO BID RF: 0 magnesium oxide 500 mg capsule 500 mg PO BID Qty: 60 RF: 6 hydrocortisone [Proctosol HC] 2.5 % cream with perineal applicator 1 appl HI BID PRN (Reason: hemorrhoids) Qty: 30 RF: 3 Creon 24,000-76,000 -120,000 unit capsule,delayed release(DR/EC) 1 cap PO QID 30 Days Qty: 120 RF: 1 simethicone 180 mg capsule 180 mg PO QID 30 Days Qty: 120 RF: 3 lansoprazole 30 mg capsule,delayed release(DR/EC) 30 mg PO BID 30 Days Qty: 60 RF: 6 bisacodyl [Dulcolax (bisacodyl)] 5 mg tablet,delayed release (DR/EC) 10 mg PO BEDTIME 30 Days Qty: 60 RF: 6 Referrals: Jah Root MD [Primary Care Provider] - 2 days Aminata Correa MD [Physician] - 2 days [facility] Past Medical History Medical History Candidiasis of mouth and esophagus No known health problems Odynophagia Surgical History History of esophagogastroduodenoscopy (EGD) History of tonsillectomy Hx of colonoscopy Family History Family History Father CVD (cardiovascular disease) Colon polyps Hypercholesteremia Diabetes Mother Thyroid condition CVD (cardiovascular disease) Fibromyalgia Heart problem Hypertension Sister HIV (human immunodeficiency virus infection) Brother No problems noted. Son No problems noted. Son No problems noted. Social History Social History Household Members: Children Alcohol intake: current Alcohol intake frequency: does not drink Advance Directives: Yes Advance Directives Information Provided: Yes Advance Directives on File: No
[2021-03-19 07:53] VITALS: BP 116/69; PULSE 80; RESP 16; TEMP 36.6; O2SAT 99; BMI 28.3
[2021-03-19 08:00] VITALS: BP 116/69; PULSE 80; RESP 16; TEMP 36.6; O2SAT 99
[2021-03-19 08:04] LABS: MANUAL DIFF FLAG NO
[2021-03-19 08:05] LABS: Basophils Absolute Auto 0.1 X10*3/uL (0.0-0.2); Basophils Percent Auto 0.6 % (0-2); Eosinophils Absolute Auto 0.1 X10*3/uL (0.0-0.4); Eosinophils Percent Auto 1.3 % (0-4); Hematocrit 38.5 % (37-47); Hemoglobin 12.7 g/dl (12.0-16.0); Imm Gran Abs Auto 0.02 X10*3/uL (0.00-0.03); Imm Gran Pct Auto 0.2 % (0.0-0.4); Lymphocytes Absolute Auto 2.5 X10*3/uL (1.2-4.9); Lymphocytes Percent Auto 30.1 % (20-40); Mean Corpuscular Hemoglobin 25.7 pg (27.0-33.0); Mean Corpuscular Volume 77.8 fL (80-98); Mean Platelet Volume 10.2 fL (9.4-12.3); Monocytes Absolute Auto 0.6 X10*3/uL (0.1-1.2); Monocytes Percent Auto 6.7 % (2-11); Neutrophils Absolute Auto 5.1 X10*3/uL (2.0-8.3); Neutrophils Percent Auto 61.1 % (45-73); Platelet Count 235 X10*3/uL (160-400); Red Blood Count 4.95 X10*6/uL (4.20-5.50); Red Cell Distribution Width 12.9 % (11.0-16.0); White Blood Count 8.4 X10*3/uL (4.8-10.8)
[2021-03-19] MEDS: Magnesium Hydrox/Alum Hydrox 30 ML ORAL.SUSP PO (08:07)
[2021-03-19] MEDS: Famotidine/PF 20 MG/2 ML VIAL IVPUSH (08:11)
[2021-03-19] MEDS: ondansetron HCL 4 MG/2 ML VIAL IVPUSH (08:11)
[2021-03-19] MEDS: 0.9 % Sodium Chloride 1,000 ML 999 ML IVCONT (08:11)
[2021-03-19 08:17] LABS: Glucose Urine UA NEG (NEG); Leukocyte Esterase Urine TRACE (NEG); Nitrite Urine NEG (NEG); Specific Gravity - Urine >= 1.030 (1.005-1.025); UACC Culture Trigger YES; Urine Blood NEG (NEG); Urine Ketones NEG (NEG); Urine Protein TRACE MG/DL (NEG-TRACE)
[2021-03-19 08:29] LABS: Troponin-I High Sensitivity < 3.5 ng/L (<3.5-17.0)
[2021-03-19 08:30] LABS: Appearance Urine HAZY; Color Urine YELLOW
[2021-03-19 08:36] LABS: Anion Gap 16 (12-20); Blood Urea Nitrogen 11 mg/dL (9-16); Calcium 9.8 mg/dL (8.4-10.2); Carbon Dioxide 25 mmol/L (22-29); Chloride 105 mmol/L (96-108); Creatinine Clr Calc Pharmacy 98.9; Estimated Glomerular Filt Rate > 60; Glucose Random 119 mg/dL (60-115); Lipase 24 U/L (8-78); Potassium 4.6 mmol/L (3.3-5.1); Sodium 141 mmol/L (135-145)
[2021-03-19 08:37] LABS: Bacteria Urine 1+ /LPF; Mucus Urine 2+ /LPF; RBC Urine 0-2 /HPF (0); Squamous Epithelial Cell Urine 2+ /LPF
[2021-03-19 09:54] LABS: UPreg QC Valid YES; Urine Pregnancy NEGATIVE (NEGATIVE)
== END 2021-03-19 10:15 | disposition home or self-care (01) ==
PROVIDERS: Emergency Provider Emergency Medicine; PCP Internal Medicine
DX: K21.9 Gastro-esophageal reflux disease without esophagitis (principal)
CPT/HCPCS: 36415; 71045; 80048; 81001; 81003; 81025; 83690; 84484; 85025; 87086; 87147; 93005; 96361; 96374; 96375; 99284; J2405

== ENCOUNTER 2021-03-23 14:35 | Outpatient (REF) | payer MEDICAID, SELFPAY ==
--- NOTE | ~2021-03-23 | FL_ITS ---
EXAMINATION: XR BARIUM SWALLOW CLINICAL INFORMATION: Dysphagia/global sensation. COMPARISON: None TECHNIQUE: Modified barium swallow was performed in lateral fluoroscopy in presence of speech therapist. FINDINGS: Following oral administration of various consistencies of thin, semisolid, thick barium including barium-coated chicken, barium-coated cookie there is normal propagation of bolus from the oral cavity through the pharynx into the upper esophagus without any evidence of obstruction, narrowing or stricture. No laryngeal penetration or aspiration seen. FLUOROSCOPY TIME: 1.7 minutes DOSE AREA PRODUCT: 1.870 uGy-m2 (microgray-meter squared) FL/FL barium swallow modified IMPRESSION: Unremarkable modified barium swallow. Correlate with speech therapy results.
--- NOTE | 2021-03-23 16:06 | MHC.SL.IMP ---
Date of Plan of Treatment: 03/23/21 Onset of Symptoms/Illness: 09/09/13 Date Treatment Started: 03/23/21 Admitting Diagnosis: Modified Barium Swallow Study Fluoroscopic Evaluation of Swallowing Function CPT Code 48620 Evaluation Year: 2020 Reason for Study: Odynophagia Referring Physician: ROGERIO Kathleen Evaluating Clinician: Serenity Power Study Number: 1 Patient Name: MRN: Status: Outpatient, Ambulatory Age: 35 Gender: Female MEDICAL HISTORY: Primary (admitting) Diagnosis: Gastroesophageal Reflux (K21.9) Odynophagia Year of Onset or Diagnosis: 2013 Comorbidities: Irritable Bowel Syndrome Past Medical History: Candidiasis of mouth and esophagus Current Medications: Please see in pt chart Current (pre-evaluation) Intake/Diet: Route: PO Diet Grade: Regular Liquid Consistencies: Thin Pre-Study Functional Oral Intake Scale (FOIS): 7- Total oral intake with no restrictions Pain: None reported at time of study Primary Speech & Language Diagnosis: Secondary Speech & Language Diagnosis: Reason for Today's Visit: 29554 Modified Barium Swallow Study Comments: Pre-evaluation Dietary Consistencies: Regular Pre-evaluation Liquid Consistency: Thin Pre-evaluation Medication Administration: Whole with Liquid Medical History: Acid Reflux Other: See below Comments: GERD Odynophagia Irritable Bowel Syndrome Candidiasis of mouth and esophagus [facility] Fall Risk Assessment Score: Oral Motor Exam Facial Symmetry: Symmetrical Facial Movement: Oral-Facial Facial Miscellaneous Observations: Mouth Occlusion: Normal Oral-Facial Teeth Characteristics: Intact/Normal Oral-Facial Teeth Miscellaneous Observation: Oral-Facial Lip Pucker Description: Normal Oral-Facial Smile (Lips) Description: Normal Oral-Facial Puff Cheeks Description: Normal Oral-Facial Lip Miscellaneous Comment: Tongue Size: Normal Tongue Frenum Length: Normal Tongue Excursion Description: Normal Tongue Range of Movement Description: Normal Tongue Speed of Movement Description: Normal Tongue Strength of Movement (against opposing pressure): Normal Tongue Movement Characteristics: Normal/Absent Tongue Movement Miscellaneous Observation: Oral Expression Ability: No Impairment Is patient able to manage secretions?: Yes Is patient able to produce volitional cough?: Yes Food and Liquid Trials: Oral Impairment: Lip Closure: 0=No labial escape Oral Impairment: Tongue Control During Bolus Hold: 0=Cohesive bolus between tongue to palatal seal Oral Impairment: Bolus Preparation/Mastication: 0=Timely and efficient chewing and mashing Oral Impairment: Bolus Transport/Lingual Motion: 0=Brisk tongue motion Oral Impairment: Oral Residue: 2=Residue collection on oral structures Oral Impairment:Initiation of Pharyngeal Swallow: 0=Bolus head at posterior angle of ramus (first hyoid excursion) Pharyngeal Impairment: Soft Palate Elevation: 0=No bolus between soft palate (SP)/pharyngeal wall (PW) Pharyngeal Impairment: Laryngeal Elevation: 0=Complete superior movement of thyroid cartilage (see description) Pharyngeal Impairment: Anterior Hyoid Excursion: 0=Complete anterior movement Pharyngeal Impairment: Epiglottic Movement: 0=Complete inversion Pharyngeal Impairment: Laryngeal Vestibular Closure:: 0=Complete: no air/contrast in laryngeal vestibule Pharyngeal Impairment: Pharyngeal Stripping Wave: 0=Present: complete Pharyngeal Impairment: Pharyngeal Contraction: 0=Complete Pharyngeal Impairment: Pharyngoesophageal Segment Openin=Complete distension and complete duration: no obstruction of flow Pharyngeal Impairment: Tongue Base (TB) Retraction: 0=No contrast between tongue base and posterior pharyngeal wall Pharyngeal Impairment: Pharyngeal Residue: 0=Complete pharyngeal clearance Pharyngeal Impairment: Esophageal Clearance Upright Position: 2=Esophageal retention with retrograde flow below PES Impressions and Recommendations Clinical Observations: OBJECTIVE: Time-out: performed at 3:00 Evaluation Start: 14:52; Stop: 14:46 Patient Positioning: Standing Viewing Planes: LAT & AP Contrast: MBSImP? Standardized Protocol using commercially prepared, standardized Barium viscosities, including: Varibar? THIN LIQUID (40% w/v, <15 cps) , 1/2 Shortbread Cookie (1 x1 x.25 ) MBSImP ID: [id number] MBSImP Results: Lip closure for intraoral bolus containment resulted in no labial escape. Tongue control during bolus hold maintained a cohesive bolus held between tongue to palate seal. Bolus preparation and mastication resulted in timely and efficient chewing and mashing. Bolus transport/lingual motion was with brisk tongue motion. Oral residue was a collection on oral structures. Initiation of the pharyngeal swallow occurred as the bolus head reached the posterior angle of the mandibular ramus. Soft palate elevation resulted in no bolus between the soft palate and the pharyngeal wall. Laryngeal elevation demonstrated complete superior movement of the thyroid cartilage with complete approximation of the arytenoids to the epiglottic petiole. Anterior hyoid excursion demonstrated complete anterior movement. Epiglottic movement resulted in complete inversion. Laryngeal vestibular closure was complete, as indicated by no air or contrast within the laryngeal vestibule at the height of the swallow. Pharyngeal stripping wave was present and complete. Pharyngeal contraction was complete. Pharyngoesophageal segment opening was completely distended for complete duration with no obstruction of bolus flow. Tongue base retraction allowed no contrast between the retracted tongue base and the posterior pharyngeal wall. Pharyngeal residue was not present. There was complete pharyngeal clearance. Esophageal clearance in the upright position resulted in esophageal retention with incidence of retrograde bolus flow below the pharyngoesophageal segment. Oral Impairment Score: 2 Pharyngeal Impairment Score: 0 Esophageal Impairment Score: 2 Laryngeal Penetration and Aspiration: Neither penetration nor aspiration was observed in today's study with Cookie, ground, pureed, Thin. This exam was conducted by radiologist and speech-language pathologist. Patient was seated at 90 degree angle in chair for lateral and AP view. Patient was able to feed herself. She trialed the following solid and liquid consistencies: -cup sip thin liquid barium -sequential sip thin liquid barium -pureed solid (applesauce mixed with barium paste) -ground solid (chicken salad mixed with barium paste) -regular solid (Deidra Doone cookie coated in barium paste) ASSESSMENT: The patient?s performance in today?s study indicated no impairment in swallowing physiology. Pt was presented with thin liquid barium, pureed solid, ground solid, and hard solid. No aspiration or penetration evident in today's study. With each trial, pt reported globus sensation and pointed to the level of the sternum. Pt stated that she was not in pain, though the feeling is uncomfortable. Unremarkable oral phase. Oral residue was noted with initial swallow of hard solids, though cleared with subsequent swallow. Initiation of pharyngeal swallow trigger at posterior angle of the ramus. No pharyngeal retention. Retrograde reflux below the level of the PES was noted with ground solids. Based on the results of today's evaluation a modified diet and speech therapy are not indicated. Pt to resume consuming REGULAR solids and THIN liquids with PILLS WHOLE IN LIQUID. The following precautions may be implemented to help ease her symptoms associated with GERD : -Upright at 90 degrees when eating and drinking -Remain upright for 30 minutes following a meal -Small bites and sips -Alternate solids with liquids Intake Recommendations: Route: PO Diet Grade: Regular Liquid Consistencies: Thin Post-Study Functional Oral Intake Scale (FOIS): 7- Total oral intake with no restrictions Therapy Recommendations: Therapy will not be initiated Prognosis for Improvement: The prognosis for the patient to meet nutritional needs by mouth is excellent based on degree of impairment. Liquid Intake Recommendation: Thin Liquid Intake Strategies: Unrestricted Dietary Recommendations: Regular Medication Administration: Whole with Liquid Compensatory Strategies Recommended: Sitting Upright (90 deg) Liquids from Cup Liquids from Straw Alternate Liquids/Solids Supervision during eating and or drinking: None Needed Recommended Treatments: Recommendation for Speech Therapy: NA:Typical Evaluation Text Comment: Frequency/Duration: Date Range for Service Requested: Timeline to reassess: It is important to note MBSS objective studies are snapshots in time and patient function might vary with factors such as time of day or concomitant medical conditions. For this reason, the final treatment plan for this patient should rest with their medical care team. Additional recommendations should be considered with the totality of the patient in mind. Drama Director Clinician/Clinical Fellow: No Supervisory Statement: N/A Speech Language Pathologist: Serenity Power M.A. CCC-HISTOLOGIST TECHNOLOGIST
== END 2021-03-23 14:36 | disposition home or self-care (01) ==
LOC: HO.XRAY 14:35
PROVIDERS: Visit Provider Nurse Practitioner
DX: R13.10 Dysphagia, unspecified (principal)
CPT/HCPCS: 74230; 92611

== ENCOUNTER 2021-03-31 13:37 | Outpatient (REF) | payer MEDICAID, SELFPAY | END 2021-03-31 13:38 | disposition home or self-care (01) | LOC: HO.LAB 13:37 | PROVIDERS: PCP Internal Medicine; Referring Provider Internal Medicine; Visit Provider Nurse Practitioner | DX: K21.9 Gastro-esophageal reflux disease without esophagitis (principal); R11.0 Nausea; R13.10 Dysphagia, unspecified; R10.9 Unspecified abdominal pain; R00.2 Palpitations; R68.89 Other general symptoms and signs; K64.9 Unspecified hemorrhoids; K59.04 Chronic idiopathic constipation; R68.81 Early satiety; R21 Rash and other nonspecific skin eruption; Z79.899 Other long term (current) drug therapy | CPT/HCPCS: 36415; 86003; 99212 ==

== ENCOUNTER → 2021-04-12 11:06 | Outpatient (REF) | payer MEDICAID, SELFPAY ==
--- NOTE | ~2021-04-12 | NM_ITS ---
EXAMINATION: NM BILIARY TRACT WITH ORAL FATTY MEAL CLINICAL INFORMATION: Right upper quadrant pain when eating foods. COMPARISON: No previous biliary scan is available for comparison. TECHNIQUE: Serial gamma scintillation camera images were obtained over the abdomen for a total observation period of 154 minutes following the intravenous administration of 4.1 mCi Tc-99m Mebrofenin. FINDINGS: There is good visualization of activity in the liver by 5 minutes post injection. Biliary activity is visualized by 15 minutes an small bowel activity is well visualized by 20 minutes post injection. The gallbladder is visualized beginning at 66 minutes post injection. At 94 minutes post Mebrofenin injection, 8 ounces of Ensure-plus Brand was administered orally and an additional 60 minutes of images were obtained. There is only minimal gallbladder emptying. At the end of the study there is abnormal retention of activity in the gallbladder bed visualization of diffuse small bowel activity. There is also almost complete clearance of activity from the liver at the end of the study. The calculated gallbladder ejection fraction is 30% (normal gallbladder ejection fraction using Ensure supplement orally is greater than 33%). NM/NM hepatobiliary wo pharm IMPRESSION: 1. Visualization of the gallbladder is evidence of a patent cystic duct and strong evidence against the diagnosis of acute cholecystitis. The common bile duct is patent. Liver function appears normal. 2. Poor gallbladder emptying and a low gallbladder ejection fraction are evidence of impaired gallbladder contractility and most likely due to chronic cholecystitis.
== END ==
LOC: HO.NUCMED 11:06
PROVIDERS: Visit Provider Nurse Practitioner
DX: R10.11 Right upper quadrant pain (principal)
CPT/HCPCS: 78226; A9537

== ENCOUNTER → 2021-04-24 10:03 | Outpatient (BNVA) | payer MEDICAID, SELFPAY | PROVIDERS: PCP Internal Medicine; Visit Provider Nurse Practitioner ==

== ENCOUNTER 2021-05-05 09:38 | Outpatient (REF) | payer MEDICAID, SELFPAY ==
--- NOTE | ~2021-05-05 | XR_ITS ---
EXAMINATION: XR RIBS, RIGHT CLINICAL INFORMATION: Dorsalgia. COMPARISON: Chest radiograph 03/19/2021. TECHNIQUE: Single view chest with 3 additional views of the right ribs were obtained. FINDINGS: Lungs are clear. No consolidation, pneumothorax, or pleural effusion. The cardiomediastinal silhouette and pulmonary vasculature are normal. Osseous structures are unremarkable. Ribs are intact. No fractures are identified. XR/XR ribs RT min 3V w CXR1V IMPRESSION: Unremarkable examination.
== END 2021-05-05 09:39 | disposition home or self-care (01) ==
LOC: HO.XRAY 09:38
PROVIDERS: PCP Internal Medicine; Visit Provider Internal Medicine
DX: M54.9 Dorsalgia, unspecified (principal)
CPT/HCPCS: 71101

== ENCOUNTER → 2021-05-10 14:24 | Outpatient (BNV) | payer MEDICAID, SELFPAY | PROVIDERS: PCP Internal Medicine; Referring Provider Internal Medicine; Visit Provider Internal Medicine | DX: D50.9 Iron deficiency anemia, unspecified (principal) | CPT/HCPCS: 99203; 99213; 99214 ==

== ENCOUNTER → 2021-05-25 14:57 | Outpatient (BNVA) | payer MEDICAID, SELFPAY | PROVIDERS: PCP Internal Medicine; Referring Provider Internal Medicine; Visit Provider Internal Medicine Cardiovascular Disease | DX: R00.2 Palpitations (principal) | CPT/HCPCS: 99202 ==

== ENCOUNTER 2021-05-26 07:53 | Outpatient (REF) | payer MEDICAID, SELFPAY | END 2021-05-26 07:54 | disposition home or self-care (01) | LOC: HO.MDS 07:53 | PROVIDERS: PCP Internal Medicine; Visit Provider Internal Medicine | DX: D50.9 Iron deficiency anemia, unspecified (principal) | CPT/HCPCS: 96365; 96366; J1200; J1750; Q0163 ==

== ENCOUNTER 2021-05-29 16:07 | Emergency (ER) | payer MEDICAID, SELFPAY ==
--- NOTE | 2021-05-29 | ECG_ITS ---
Test Reason : DIZZINESS Blood Pressure : / mmHG Vent. Rate : 078 BPM Atrial Rate : 078 BPM P-R Int : 148 ms QRS Dur : 076 ms QT Int : 380 ms P-R-T Axes : 062 039 015 degrees QTc Int : 433 ms Normal sinus rhythm Normal ECG When compared with ECG of 19-MAR-2021 08:33, No significant change was found Referred By: Generic ED Physician Electronically Signed By:KASIA BANUELOS
[2021-05-29 17:17] VITALS: BP 149/74; PULSE 89; RESP 16; TEMP 35.9; O2SAT 98; BMI 28.1
[2021-05-29 19:03] LABS: Basophils Absolute Auto 0.1 X10*3/uL (0.0-0.2); Basophils Percent Auto 0.4 % (0-2); Eosinophils Absolute Auto 0.1 X10*3/uL (0.0-0.4); Eosinophils Percent Auto 0.4 % (0-4); Hematocrit 39.7 % (37-47); Hemoglobin 13.2 g/dl (12.0-16.0); Imm Gran Abs Auto 0.06 X10*3/uL (0.00-0.03); Imm Gran Pct Auto 0.4 % (0.0-0.4); Lymphocytes Absolute Auto 2.7 X10*3/uL (1.2-4.9); Lymphocytes Percent Auto 19.3 % (20-40); MANUAL DIFF FLAG NO; Mean Corpuscular HGB Conc 33.2 g/dl (31.0-35.0); Mean Corpuscular Hemoglobin 25.8 pg (27.0-33.0); Mean Corpuscular Volume 77.5 fL (80-98); Mean Platelet Volume 10.1 fL (9.4-12.3); Monocytes Absolute Auto 0.9 X10*3/uL (0.1-1.2); Monocytes Percent Auto 6.8 % (2-11); Neutrophils Absolute Auto 10.1 X10*3/uL (2.0-8.3); Neutrophils Percent Auto 72.7 % (45-73); Platelet Count 274 X10*3/uL (160-400); Red Blood Count 5.12 X10*6/uL (4.20-5.50); Red Cell Distribution Width 13.2 % (11.0-16.0); White Blood Count 13.9 X10*3/uL (4.8-10.8)
[2021-05-29 19:18] LABS: COVID-19 Test Negative (Negative)
[2021-05-29 19:26] LABS: Anion Gap 13 (12-20); Blood Urea Nitrogen 10 mg/dL (9-16); Calcium 9.6 mg/dL (8.4-10.2); Carbon Dioxide 27 mmol/L (22-29); Chloride 105 mmol/L (96-108); Creatinine Clr Calc Pharmacy 94.9; Estimated Glomerular Filt Rate > 60; Glucose Random 92 mg/dL (60-115); Potassium 4.6 mmol/L (3.3-5.1); Sodium 140 mmol/L (135-145)
--- NOTE | 2021-05-29 21:18 | ED.DIZZY ---
HPI - Dizziness General Chief Complaint: Dizziness Stated Complaint: weakness fatigue dizziness following transfusion Time Seen by Provider: 05/29/21 21:17 Source: patient Mode of arrival: ambulatory Limitations: no limitations History of Present Illness HPI Narrative: Patient history of thalassemia trait iron deficiency anemia received iron transfusion 2 days ago since then complaining of body aches dizziness joint pain palpitations increased fatigue, no hematuria Related Data Home Medications Medication Instructions Recorded Confirmed methylcellulose (laxative) 500 mg 500 mg PO BID 07/13/20 05/10/21 tablet (Citrucel) plecanatide 3 mg tablet (Trulance) 3 mg PO DAILY 07/13/20 05/10/21 pantoprazole 40 mg tablet,delayed 40 mg PO DAILY 03/31/21 05/10/21 release (Protonix) Previous Rx's Medication Instructions Recorded magnesium oxide 500 mg capsule 500 mg PO BID #60 cap 07/14/20 hydrocortisone 2.5 % topical cream 1 appl ME BID PRN #30 g 08/25/20 with perineal applicator (Proctosol HC) naproxen 500 mg tablet 500 mg PO BID PRN #20 tab 09/15/20 laclkt-hbclssqg-yjrdugj 1 cap PO QID 30 Days #120 cap 12/13/20 24,000-76,000-120,000 unit capsule,delayed rel (Creon) simethicone 180 mg capsule 180 mg PO QID 30 Days #120 cap 12/13/20 bisacodyl 5 mg tablet,delayed 10 mg PO BEDTIME 30 Days #60 tab 01/19/21 release (Dulcolax (bisacodyl)) dicyclomine 10 mg capsule 10 mg PO QID PRN 90 Days #360 cap 04/17/21 Allergies Allergy/AdvReac Type Severity Reaction Status Date / Time No Known Allergies Allergy Verified 05/10/21 14:37 Review of Systems Review of Systems: Yes all other systems are reviewed and are negative PMFSH Past Medical History Medical History Candidiasis of mouth and esophagus Dysphagia No known health problems Odynophagia Surgical History History of esophagogastroduodenoscopy (EGD) History of tonsillectomy Hx of colonoscopy Family History Family History Father CVD (cardiovascular disease) Colon polyps Hypercholesteremia Diabetes Mother Thyroid condition CVD (cardiovascular disease) Fibromyalgia Heart problem Hypertension Sister HIV (human immunodeficiency virus infection) Brother No problems noted. Son No problems noted. Son No problems noted. Social History Social History Household Members: Children Alcohol intake: former Patient Tobacco Use Status: Never used Tobacco Advance Directives: No Advance Directives Information Provided: No Physical Exam Vital Signs: Vital Signs: Last Vital Signs Temp 96.7 F L 05/29/21 17:17 Pulse 68 05/29/21 22:17 Resp 16 05/29/21 22:17 BP 121/71 05/29/21 22:17 Pulse Ox 98 05/29/21 22:17 Body Mass Index 28.1 Appearance: Alert. Oriented X3. No acute distress. Eyes: No pallor or icterus ENT: Pharynx normal. Oral Mucosa moist Neck: Normal inspection. Neck supple. CVS: Normal heart rate and rhythm. Pulses normal. Respiratory: No respiratory distress. Equal air entry bilateral, no wheezing/rales/rhonchi Abdomen: Soft and nontender. Bowel sounds are present, no mass palpable, no CVA tenderness Skin: Skin warm and dry. Normal skin color. Normal skin turgor. Extremities: No lower extremity edema. No calf tenderness Neuro: Oriented X 3. MDM - Dizziness MDM Narrative Medical decision making narrative: Case occurs with mobile home park manager Dr. Sheffield possibly she has mild flu-like symptoms after her iron transfusion usually symptomatic treatment patient will get better in few days. Lab workups are stable no gross hematuria no signs of hemolysis no joint swelling Lab Data Attestation: I reviewed the patient's lab results. Result diagrams: 05/29/21 19:00 05/29/21 19:01 Labs: Lab Results 05/29/21 05/29/21 05/29/21 Range/Units 19:00 19:00 19:01 WBC 13.9 H (4.8-10.8) X10*3/uL RBC 5.12 (4.20-5.50) X10*6/uL Hgb 13.2 (12.0-16.0) g/dl Hct 39.7 (37-47) % MCV 77.5 L (80-98) fL MCH 25.8 L (27.0-33.0) pg MCHC 33.2 (31.0-35.0) g/dl RDW 13.2 (11.0-16.0) % Plt Count 274 (160-400) X10*3/uL MPV 10.1 (9.4-12.3) fL Immature Gran % (Auto) 0.4 (0.0-0.4) % Neut % (Auto) 72.7 (45-73) % Lymph % (Auto) 19.3 L (20-40) % Bennett % (Auto) 6.8 (2-11) % Eos % (Auto) 0.4 (0-4) % Baso % (Auto) 0.4 (0-2) % Lymph # (Auto) 2.7 (1.2-4.9) X10*3/uL Bennett # (Auto) 0.9 (0.1-1.2) X10*3/uL Eos # (Auto) 0.1 (0.0-0.4) X10*3/uL Baso # (Auto) 0.1 (0.0-0.2) X10*3/uL Abs Immat Gran (auto) 0.06 H (0.00-0.03) X10*3/uL Absolute Neuts (auto) 10.1 H (2.0-8.3) X10*3/uL Absolute Nucleated RBC 0.000 (0.0-0.012) X10*3/uL Nucleated RBC % (auto) 0.0 (0.0-0.2) /100WBC Sodium 140 (135-145) mmol/L Potassium 4.6 (3.3-5.1) mmol/L Chloride 105 (96-108) mmol/L Carbon Dioxide 27 (22-29) mmol/L Anion Gap 13 (12-20) BUN 10 (9-16) mg/dL Creatinine 0.78 (0.5-1.4) mg/dL Estim Creat Clear Calc 94.9 Estimated GFR > 60 Random Glucose 92 (60-115) mg/dL Calcium 9.6 (8.4-10.2) mg/dL Urine Color Urine Appearance Urine pH (5.0-8.0) Ur Specific [place] (1.005-1.025) Urine Protein (NEG-TRACE) MG/DL Urine Glucose (UA) (NEG) MG/DL Urine Ketones (NEG) MG/DL Urine Blood (NEG) Urine Nitrite (NEG) Ur Leukocyte Esterase (NEG) Urine RBC (0) /HPF Urine WBC (0-4) /HPF Ur Squamous Epith Cells /LPF Urine Bacteria /LPF Urine Test (NEGATIVE) COVID-19 ([facility]) Negative (Negative) COVID-19 Clin Com See Note 05/29/21 05/29/21 Range/Units 21:47 21:47 WBC (4.8-10.8) X10*3/uL RBC (4.20-5.50) X10*6/uL Hgb (12.0-16.0) g/dl Hct (37-47) % MCV (80-98) fL MCH (27.0-33.0) pg MCHC (31.0-35.0) g/dl RDW (11.0-16.0) % Plt Count (160-400) X10*3/uL MPV (9.4-12.3) fL Immature Gran % (Auto) (0.0-0.4) % Neut % (Auto) (45-73) % Lymph % (Auto) (20-40) % Bennett % (Auto) (2-11) % Eos % (Auto) (0-4) % Baso % (Auto) (0-2) % Lymph # (Auto) (1.2-4.9) X10*3/uL Bennett # (Auto) (0.1-1.2) X10*3/uL Eos # (Auto) (0.0-0.4) X10*3/uL Baso # (Auto) (0.0-0.2) X10*3/uL Abs Immat Gran (auto) (0.00-0.03) X10*3/uL Absolute Neuts (auto) (2.0-8.3) X10*3/uL Absolute Nucleated RBC (0.0-0.012) X10*3/uL Nucleated RBC % (auto) (0.0-0.2) /100WBC Sodium (135-145) mmol/L Potassium (3.3-5.1) mmol/L Chloride (96-108) mmol/L Carbon Dioxide (22-29) mmol/L Anion Gap (12-20) BUN (9-16) mg/dL Creatinine (0.5-1.4) mg/dL Estim Creat Clear Calc Estimated GFR Random Glucose (60-115) mg/dL Calcium (8.4-10.2) mg/dL Urine Color YELLOW Urine Appearance HAZY Urine pH 6.0 (5.0-8.0) Ur Specific [place] 1.025 (1.005-1.025) Urine Protein TRACE (NEG-TRACE) MG/DL Urine Glucose (UA) NEG (NEG) MG/DL Urine Ketones NEG (NEG) MG/DL Urine Blood NEG (NEG) Urine Nitrite NEG (NEG) Ur Leukocyte Esterase 1+ H (NEG) Urine RBC 0 (0) /HPF Urine WBC 0-2 (0-4) /HPF Ur Squamous Epith Cells 2+ /LPF Urine Bacteria 1+ /LPF Urine Test NEGATIVE (NEGATIVE) COVID-19 ([facility]) (Negative) COVID-19 Clin Com Discharge Plan Discharge Clinical Impression: Acute viral syndrome Patient Disposition: Home, Self-Care Instructions: Viral Syndrome (ED) Additional Instructions: Drink plenty of fluids Tylenol for body aches Report to the ER if any gross blood in the urine or stool or joint swelling Prescriptions: No Action dicyclomine 10 mg capsule 10 mg PO QID PRN (Reason: for cramps) 90 Days Qty: 360 RF: 1 naproxen 500 mg tablet 500 mg PO BID PRN (Reason: pain) Qty: 20 RF: 0 pantoprazole [Protonix] 40 mg tablet,delayed release (DR/EC) 40 mg PO DAILY RF: 0 Trulance 3 mg tablet 3 mg PO DAILY RF: 0 Citrucel 500 mg tablet 500 mg PO BID RF: 0 magnesium oxide 500 mg capsule 500 mg PO BID Qty: 60 RF: 6 hydrocortisone [Proctosol HC] 2.5 % cream with perineal applicator 1 appl ME BID PRN (Reason: hemorrhoids) Qty: 30 RF: 3 Creon 24,000-76,000 -120,000 unit capsule,delayed release(DR/EC) 1 cap PO QID 30 Days Qty: 120 RF: 1 simethicone 180 mg capsule 180 mg PO QID 30 Days Qty: 120 RF: 3 bisacodyl [Dulcolax (bisacodyl)] 5 mg tablet,delayed release (DR/EC) 10 mg PO BEDTIME 30 Days Qty: 60 RF: 6 Interventions: ED Discharge Assessment Last Done: 05/29/21 22:19 Discharge Date/Time: 05/29/21 22:20
[2021-05-29 21:53] LABS: Appearance Urine HAZY; Color Urine YELLOW; Glucose Urine UA NEG (NEG); Leukocyte Esterase Urine 1+ (NEG); Nitrite Urine NEG (NEG); Specific Gravity - Urine 1.025 (1.005-1.025); UACC Culture Trigger YES; Urine Blood NEG (NEG); Urine Ketones NEG (NEG); Urine Protein TRACE MG/DL (NEG-TRACE)
[2021-05-29 21:55] LABS: UPreg QC Valid YES; Urine Pregnancy NEGATIVE (NEGATIVE)
[2021-05-29 21:58] LABS: Bacteria Urine 1+ /LPF; Squamous Epithelial Cell Urine 2+ /LPF
[2021-05-29 22:00] LABS: RBC Urine 0 /HPF (0); WBC Urine 0-2 /HPF (0-4)
[2021-05-29 22:17] VITALS: BP 121/71; PULSE 68; RESP 16; O2SAT 98
== END 2021-05-29 22:20 | disposition home or self-care (01) ==
PROVIDERS: Emergency Provider Internal Medicine; PCP Internal Medicine
DX: B34.9 Viral infection, unspecified (principal); R42 Dizziness and giddiness; D50.9 Iron deficiency anemia, unspecified; M79.10 Myalgia, unspecified site; Z20.822 Contact with and (suspected) exposure to COVID-19; Z79.899 Other long term (current) drug therapy
CPT/HCPCS: 36415; 80048; 81001; 81025; 85025; 87086; 87147; 87635; 93005; 99283; 99284

== ENCOUNTER → 2021-06-05 09:22 | Outpatient (BNVA) | payer MEDICAID, SELFPAY | PROVIDERS: PCP Internal Medicine; Visit Provider Nurse Practitioner ==

== ENCOUNTER → 2021-06-21 08:45 | Outpatient (REF) | payer MEDICAID, SELFPAY ==
--- NOTE | ~2021-06-21 | NM_ITS ---
EXAMINATION: RADIONUCLIDE SOLID FOOD GASTRIC EMPTYING 4-HOUR STUDY CLINICAL INFORMATION: Early satiety. COMPARISON: The previous study dated 11/24/2013 is available for comparison. TECHNIQUE: A standard meal consisting of 4 oz of Egg Beaters brand equivalent tagged with 860 microcuries Tc-99m Sulfur Colloid, 8 oz water and 2 slices of toast with jelly was administered orally to the patient. Images were obtained using a dual head gamma camera in the anterior and posterior projections over of the stomach immediately post ingestion and at hourly intervals up to 4 hours post ingestion. The anterior and posterior counts at each time interval were averaged using the geometric mean and expressed as percentage of the immediate post ingestion counts. FINDINGS: There is good visualization of activity in the stomach immediately post ingestion. As the study progresses, there is good clearance of activity from the stomach and visualization of progressively increasing small bowel activity. By the end of the study, there is almost no retention noted in the stomach. Retention in the stomach at each time interval was: 1 hour 80% (normal 37%-90%) 2 hours 44% (normal 30%-60%) 3 hours 29% 4 hours 5% (normal 0%-10%) Compared to the previous study dated 11/24/2013, gastric emptying is slightly slower at each time interval on the current study except at 4 hours it is similar at 5% versus 7%. This difference is not likely clinically significant. NM/NM gastric emptying study IMPRESSION: Normal 4-hour solid food gastric emptying study.
== END ==
LOC: HO.NUCMED 08:45
PROVIDERS: PCP Internal Medicine; Visit Provider Nurse Practitioner
DX: R00.2 Palpitations (principal); R68.81 Early satiety
CPT/HCPCS: 78264; A9541

== ENCOUNTER → 2021-06-23 11:41 | Outpatient (REF) | payer MEDICAID, SELFPAY ==
--- NOTE | 2021-06-23 11:44 | CA_ITS ---
Transthoracic Echocardiogram Patient (Last, First, Middle): Radha Rodarte D Gender: Female Date of : 1985 Age: 35 Procedure Date: 06/23/2021 Procedure Type: Transthoracic Echocardiogram Location: OP Height: 157.48 cm Weight: 72.12 kg BSA: 1.73 m2 Heart Rate: bpm BP: 120 / 80 mmHg Rrts: HERMES Wilson MD: Jonel Lund MD Advertising Sales Associate: Jonel Lund MD Symptoms: R00.2 - Palpitations Study Quality: Good ECG Rhythm: Sinus Conclusions: - Essentially normal study Findings Left Ventricle Normal left ventricular size, thickness, and systolic function. The visually estimated ejection fraction is between 60-65%. Spectral Doppler is indicative of a normal filling pattern. Right Ventricle Normal right ventricular cavity size and systolic function. Atria Both atria are normal in size. Interatrial shunt cannot be excluded. Aortic Valve Normal aortic valve structure and function. There is no aortic valve stenosis. There is no aortic valve regurgitation. Mitral Valve Normal mitral valve structure and function. There is trace mitral valve regurgitation. There is no mitral valve stenosis. Pulmonic Valve The pulmonic valve is likely normal. Tricuspid Valve Normal tricuspid valve structure. There is trace tricuspid valve regurgitation. The right ventricular systolic pressure is normal. The right ventricular systolic pressure is 16 mmHg. Normal right atrial pressure. There is no evidence of pulmonary hypertension. Great Vessels All visible segments of the aorta are normal in size. The pulmonary artery was not well visualized. Venous The inferior vena cava is normal in size and collapses greater than 50% with inspiration. Pericardium/Pleural There is no evidence of pericardial effusion. Prior Study Comparison No prior study available for comparison. Measurements 2D Linear Measurements IVSd: 0.81 0.6-0.9/0.6-1.0 cm LVIDd: 4.11 3.9-5.3/4.2-5.9 cm LVIDd Index: 2.38 2.4-3.2/2.2-3.1 cm/m2 LVIDs: 2.52 2.0-3.6 cm LVPWd: 0.76 0.7-1.1 cm Ao Root: 2.80 2.1-3.5 cm LA Diam: 3.20 2.7-3.8/3.0-4.0 cm LAIDs Index: 1.85 1.5-2.3 cm/m2 LV Mass: 118.18 67-162/88-224 g LV Mass Index: 68.31 43-95/49-115 g/m2 LVOT Diam: 2.00 3.0+(-)1.3 cm 2D Systolic Function EF 4C: 65.40 >55% EF 2C: 67.10 >55% EF BiP: 66.90 >55% Mitral Valve MV Pk E: 0.78 MV PK A: 0.58 MV Decel Time: 223.00 E/A: 1.40 E'Lateral: 12.30 E'Medial: 12.40 E/E' Med: 6.30 E/E' Lat: 6.40 PHT: 65.00 MVA PHT: 3.38 Decel [place]: 3.52 Aortic Valve AoV Pk Brenden: 1.28 AoV Mn Brenden: 0.86 AoV VTI: 0.26 AoV Pk Grad: 7.00 Aov Mn Grad: 3.00 REVA Cont.VTI: 2.22 LVOT LVOT Pk Brenden: 0.93 LVOT Mn Brenden: 0.61 LVOT VTI: 0.19 LVOT Pk Grad: 3.00 LVOT Mn Grad: 2.00 LVOT Diam: 2.00 LVOT Area: 3.14 Diastolic Function MV Pk E: 0.78 MV Pk A: 0.58 E/A: 1.40 E'Medial: 12.40 E/E' Med: 6.30 E' Laterial: 12.30 E/E' Lat: 6.40 Right Ventricle TAPSE (mm): 2.04 TVS' Brenden: 12.80 Tricuspid Valve TR Pk Brenden: 1.81 TR Pk Grad: 13.00 RA Press: 3.00 RVSP: 16.00 Great Vessels Aorta Ao Root-2D: 2.80 2.0-3.7 cm Ao Asc: 2.40 2.1-3.4 cm Ao Arch: 2.20 Updated in Other Vendor System with Status of Final Jonel Lund MD electronically signed on 06/24/2021 2:24:08 PM with status of Final
--- NOTE | 2021-06-23 11:44 | HM_ITS ---
TEST PERFORMED: Cardiac event monitoring. INDICATION: Palpitations. ENROLLMENT PERIOD: 06/23/2021 to 07/23/2021-30 days. FINDINGS: In the above monitoring period, the underlying rhythm is sinus. Sample rate during rest 78/min. There is no arrhythmia or any other abnormality detected during this time. There is also no patient activated alert either. CONCLUSION: Normal 30-day event monitoring showing sinus rhythm only. Luisito Xiao MD HS/VANDANA / [id number]
== END ==
LOC: HO.CARD 11:41
PROVIDERS: PCP Internal Medicine; Visit Provider Internal Medicine Cardiovascular Disease
DX: R00.2 Palpitations (principal)
CPT/HCPCS: 93270; 93306

== ENCOUNTER 2021-06-24 12:52 | Emergency (ER) | payer MEDICAID, SELFPAY ==
--- NOTE | ~2021-06-24 | CT_ITS ---
EXAMINATION: CT HEAD WITHOUT CONTRAST CLINICAL INFORMATION: Headache. Weakness COMPARISON: CT head September 25, 2020 TECHNIQUE: Contiguous axial imaging was performed from the skull base to vertex without intravenous administration of contrast. Coronal and sagittal reformatted images are performed at the CT scanner. [This CT examination was performed using dose optimization techniques as appropriate, variously including the following: *Automated exposure control *Adjustment of mA and/or kV according to patient size (this includes techniques or standardized protocols for targeted exams where dose is matched to indication/reason for exam; i.e. extremities or head) *Use of iterative reconstruction technique] DLP: 661 mGy-cm. FINDINGS: There is no evidence of acute intracranial hemorrhage or territorial infarction. No abnormal mass-effect or midline shift is seen. Cid to white matter differentiation is well preserved. No extra-axial fluid collections are identified. The ventricles are normal in size. There is no abnormal attenuation within the brain parenchyma. There is no osseous abnormality. The mastoid air cells and visualized portions of the paranasal sinuses are well-aerated. CT/CT head/brain wo con IMPRESSION: No acute intracranial pathology.
[2021-06-24 13:17] VITALS: BP 151/90; PULSE 99; RESP 18; TEMP 36.3; O2SAT 98; BMI 29.0
[2021-06-24 16:03] LABS: MANUAL DIFF FLAG NO
[2021-06-24 16:08] LABS: Basophils Absolute Auto 0.1 X10*3/uL (0.0-0.2); Basophils Percent Auto 0.6 % (0-2); Eosinophils Absolute Auto 0.1 X10*3/uL (0.0-0.4); Eosinophils Percent Auto 0.5 % (0-4); Hematocrit 40.2 % (37-47); Hemoglobin 13.7 g/dl (12.0-16.0); Imm Gran Abs Auto 0.04 X10*3/uL (0.00-0.03); Imm Gran Pct Auto 0.4 % (0.0-0.4); Lymphocytes Absolute Auto 2.5 X10*3/uL (1.2-4.9); Lymphocytes Percent Auto 25.7 % (20-40); Mean Corpuscular HGB Conc 34.1 g/dl (31.0-35.0); Mean Corpuscular Hemoglobin 26.6 pg (27.0-33.0); Mean Corpuscular Volume 78.1 fL (80-98); Mean Platelet Volume 9.9 fL (9.4-12.3); Monocytes Absolute Auto 0.7 X10*3/uL (0.1-1.2); Monocytes Percent Auto 6.7 % (2-11); Neutrophils Absolute Auto 6.4 X10*3/uL (2.0-8.3); Neutrophils Percent Auto 66.1 % (45-73); Platelet Count 260 X10*3/uL (160-400); Red Blood Count 5.15 X10*6/uL (4.20-5.50); Red Cell Distribution Width 13.1 % (11.0-16.0); White Blood Count 9.7 X10*3/uL (4.8-10.8)
[2021-06-24 16:19] LABS: COVID-19 Test Negative (Negative)
[2021-06-24 16:21] LABS: Alanine Aminotransferase 15 U/L (0-31); Albumin Level 4.6 g/dL (3.5-5.0); Alkaline Phosphatase 74 U/L (39-117); Anion Gap 14 (12-20); Aspartate Amino Transferase 15 U/L (5-31); Bilirubin Total 0.5 mg/dL (0.0-1.0); Blood Urea Nitrogen 9 mg/dL (9-16); Calcium 9.8 mg/dL (8.4-10.2); Carbon Dioxide 27 mmol/L (22-29); Chloride 104 mmol/L (96-108); Estimated Glomerular Filt Rate > 60; Glucose Random 89 mg/dL (60-115); Potassium 4.5 mmol/L (3.3-5.1); Sodium 140 mmol/L (135-145); Total Protein 7.8 g/dL (6.5-8.0)
[2021-06-24 17:30] VITALS: BP 119/71; PULSE 77; RESP 18; TEMP 36.9; O2SAT 99
[2021-06-24] MEDS: diazePAM 5 MG TABLET PO (17:59)
[2021-06-24] MEDS: Acetaminophen 325 MG TABLET 650 MG PO (17:59)
[2021-06-24 18:12] LABS: Adenovirus PCR Not Detected (Not Detect.); Appearance Urine CLEAR; Bordetella parapertussis PCR Not Detected (Not Detect.); Bordetella pertussis PCR Not Detected (Not Detect.); Chlamydia pneumoniae PCR Not Detected (Not Detect.); Color Urine YELLOW; Coronavirus 229E PCR Not Detected (Not Detect.); Coronavirus HKU1 PCR Not Detected (Not Detect.); Coronavirus NL63 PCR Not Detected (Not Detect.); Coronavirus OC43 PCR Not Detected (Not Detect.); Glucose Urine UA NEG (NEG); Human metapneumovirus PCR Not Detected (Not Detect.); Influenza A PCR Not Detected (Not Detect.); Influenza B PCR Not Detected (Not Detect.); Leukocyte Esterase Urine 1+ (NEG); Mycoplasma pneumoniae PCR Not Detected (Not Detect.); Nitrite Urine NEG (NEG); Parainfluenza 1 PCR Not Detected (Not Detect.); Parainfluenza 2 PCR Not Detected (Not Detect.); Parainfluenza 3 PCR Not Detected (Not Detect.); Parainfluenza 4 PCR Not Detected (Not Detect.); RSV PCR Not Detected (Not Detect.); Rhino/Enterovirus PCR Not Detected (Not Detect.); SARS-CoV-2 PCR Not Detected (Not Detect.); UACC Culture Trigger YES; Urine Blood NEG (NEG); Urine Ketones NEG (NEG); Urine Protein NEG (NEG-TRACE)
[2021-06-24 18:13] LABS: UPreg QC Valid YES; Urine Pregnancy NEGATIVE (NEGATIVE)
[2021-06-24 18:19] LABS: Magnesium 2.2 mg/dL (1.6-2.6)
--- NOTE | 2021-06-24 18:20 | ED.WEAKNESS ---
HPI - Weakness General Chief complaint: Weakness Stated complaint: WEAKNESS TIRED BODY HEAVY Time Seen by Provider: 06/24/21 17:29 Source: patient and family (Significant other at bedside) Mode of arrival: ambulatory Limitations: no limitations History of Present Illness HPI Narrative: 35-year-old female with a history of thalassemia trait iron deficiency anemia, EN positive, GERD, chronic idiopathic constipation, uterine fibroids and hemorrhoids presenting to the ED with complaints of generalized weakness, intermittent headaches, fatigue, body aches/joint pains and unable to concentrate for the past 5-7 days. She reports that it initially started with a headache and she took Motrin Tylenol although the headache lasted 2 days which finally resolved after 2 days although has been coming back intermittently. She reports she has increased urinary urgency/frequency with dysuria. She reports she is currently on Flagyl for bacterial vaginosis. She denies any head trauma, dizziness, neck pain/stiffness, change in vision, nausea/vomiting, chest pain or shortness of breath, dizziness or gloria, orthopnea, palpitations, abdominal pain, hematuria, black or bloody stools, diarrhea or constipation, recent travel or sick contacts, rashes or any other symptoms complaints or concerns at this time. MD Complaint: generalized weakness and lack of energy Onset (ago): week(s) (One week) Duration: constant and progressively worsening Location: generalized Severity: moderate Exacerbating factors: none Context: new medication (Currently on Flagyl for bacterial vaginosis) Associated symptoms: dysuria, headaches and myalgias Related Data Home Medications Medication Instructions Recorded Confirmed methylcellulose (laxative) 500 mg 500 mg PO BID 07/13/20 06/05/21 tablet (Citrucel) plecanatide 3 mg tablet (Trulance) 3 mg PO DAILY 07/13/20 06/05/21 pantoprazole 40 mg tablet,delayed 40 mg PO BID tab 06/05/21 06/05/21 release (Protonix) Previous Rx's Medication Instructions Recorded magnesium oxide 500 mg capsule 500 mg PO BID #60 cap 07/14/20 hydrocortisone 2.5 % topical cream 1 appl CA BID PRN #30 g 08/25/20 with perineal applicator (Proctosol HC) naproxen 500 mg tablet 500 mg PO BID PRN #20 tab 09/15/20 vezczz-[id number] 1 cap PO QID 30 Days #120 cap 12/13/20 24,000-76,000-120,000 unit capsule,delayed rel (Creon) simethicone 180 mg capsule 180 mg PO QID 30 Days #120 cap 12/13/20 bisacodyl 5 mg tablet,delayed 10 mg PO BEDTIME 30 Days #60 tab 01/19/21 release (Dulcolax (bisacodyl)) amoxicillin 500 mg tablet 500 mg PO TID 5 Days #15 tab 06/02/21 metoclopramide HCl 5 mg tablet 5 mg PO .QIDAC 30 Days #90 tab 06/05/21 (Reglan) acetaminophen 500 mg tablet 1,000 mg PO QID PRN #14 tab 06/24/21 (Tylenol Extra Strength) cyclobenzaprine 10 mg tablet 10 mg PO Q8H PRN #14 tab 06/24/21 penicillin V potassium 500 mg 500 mg PO Q12H 10 Days #20 tab 06/24/21 tablet Allergies Allergy/AdvReac Type Severity Reaction Status Date / Time No Known Allergies Allergy Verified 05/10/21 14:37 Review of Systems Review of Systems: Constitutional : Positive fatigue/malaise, No Weight loss, No Fever, No Chills, No Night Sweats ENT/Mouth : No Hearing loss, No Ear Pain, No Nasal Congestion, No Sinus Pain, No Hoarseness, No sore throat, No Rhinorrhea, No Swallowing Difficulty Eyes: No Eye Pain, No Swelling, No Redness, No Foreign Body, No Discharge, No Vision Changes Cardiovascular : No Chest Pain, No SOB, No Dyspnea on Exertion, No Orthopnea, No Edema, No Palpitations Respiratory : No Cough, No Sputum, No Wheezing, No Smoke Exposure, No Dyspnea Gastrointestinal : No Nausea, No Vomiting, No Diarrhea, No Constipation, No abdominal Pain, No Hematochezia, No Melena Genitourinary : no irregular bleeding, No Dysuria, No Urinary Frequency, No Hematuria, No Urinary Incontinence, No Urgency, No Flank Pain, No Urinary Flow Changes, No Hesitancy Musculoskeletal : Positive joint pain/myalgias, No Joint Swelling Skin : No Skin Lesions, No rash Neuro : Positive generalized weakness, no focal weakness, positive intermittent headaches, No Numbness, No Paresthesias, No Loss of Consciousness, No Dizziness Psych : No Anxiety/Panic, No Depression, No SI/HI/AH/VH, No Social Issues, Heme/Lymph: No Bruising, No Bleeding,No Lymphadenopathy Endocrine : No Polyuria, No Polydipsia, No Temperature Intolerance Yes all other systems are reviewed and are negative FORMERLY [facility] Past Medical History Attestation statement: The following information was validated with the patient. Medical History Candidiasis of mouth and esophagus Dysphagia No known health problems Odynophagia Surgical History History of esophagogastroduodenoscopy (EGD) History of tonsillectomy Hx of colonoscopy Family History Family History Father CVD (cardiovascular disease) Colon polyps Hypercholesteremia Diabetes Mother Thyroid condition CVD (cardiovascular disease) Fibromyalgia Heart problem Hypertension Sister HIV (human immunodeficiency virus infection) Brother No problems noted. Son No problems noted. Son No problems noted. Social History Social History Household Members: Children Alcohol intake: unknown Patient Tobacco Use Status: Never used Tobacco Use of substances other than those prescribed or required for medical reasons: No Advance Directives: No Advance Directives Information Provided: No Patient : No Physical Exam Vital Signs: Vital Signs: Last Vital Signs Temp 98.4 F 06/24/21 17:30 Pulse 77 06/24/21 17:30 Resp 18 06/24/21 17:30 BP 119/71 06/24/21 17:30 Pulse Ox 99 06/24/21 17:30 Body Mass Index 29.0 Vital signs have been reviewed as normal and appeared to be correct. Blood pressure hypertensive 151/90. Heart rate normal. Respiration rate normal. Temperature normal. Oxygen saturation normal. Appearance: Alert. Oriented X3. No acute distress. Head: Normal external exam. Normocephalic. Atraumatic. Able to rotate head bilaterally. Eyes: PERRLA. EOMI. No nystagmus noted. Conjunctiva and sclera normal. Eyelids normal. Corneal reflex normal. ENT: EAC normal. TM's Normal. Hearing normal. Pharynx normal. Uvula midline. tongue midline. Moist mucous membranes. No trismus noted. No drooling noted. No muffled voice noted. No nystagmus noted. Neck: Normal inspection. Neck supple. FROM. No adenopathy. Trachea midline. Thyroid Normal. No meningeal signs. No neck mass noted. CVS: Normal heart rate and rhythm. Heart sound normal. No murmurs noted. Pulses normal throughout. Respiratory: No respiratory distress. Painless inspiration. Breath sounds normal. No wheezes/rales/rhonchi noted. Chest nontender. No accessory muscle usage noted or decreased air movement noted. Abdomen: Soft and nontender. Bowel sounds normal in all 4 quadrants. No distention noted. No organomegaly noted. No visible injury noted. Back: No CVA tenderness. Full range of motion noted. Skin: Skin warm and dry. Normal skin color. Normal skin turgor. No rashes/lesions/lacerations noted. Extremities: No lower extremity edema. Extremities exhibit normal range of motion. Extremities nontender. Able to shrug shoulders bilaterally and keep up against resistance. Neuro: Oriented X 3. No motor deficit. No sensory deficit. Reflexes normal. Moving all extremities. No focal motor deficits. Cranial nerves II-XI intact bilaterally. Facial strength normal. Normal cognition. Speech normal. Gait normal. Strength 5/5 throughout. No pronator drift. No tremor noted. No fasciculations noted. No rigidity noted. Muscle tone normal throughout. No asterixis noted. Evnrps-by-mzye test normal. Heel to gloria test normal. Tandem gait normal. Does not sway with eyes open. Romberg test negative. Rapid alternating movement upper extremity normal. Rapid alternating movement lower extremity normal. Hand drop from overhead Misses face. NIHSS score 0. Course Course Course Narrative: 18:30pm - 35-year-old female with a history of thalassemia trait iron deficiency anemia, EN positive, GERD, chronic idiopathic constipation, uterine fibroids and hemorrhoids presenting to the ED with complaints of generalized weakness, intermittent headaches, fatigue, body aches/joint pains and unable to concentrate for the past 5-7 days. She reports that it initially started with a headache and she took Motrin Tylenol although the headache lasted 2 days which finally resolved after 2 days although has been coming back intermittently. She reports she has increased urinary urgency/frequency with dysuria. She reports she is currently on Flagyl for bacterial vaginosis. - labs were obtained while patient was in triage and CBC within normal limits. Chemistry is also within normal limits. She had a negative COVID. - therefore at this time will obtain a UA, UHCG add a TSH level and a Lyme titer. Add a respiratory panel. We will also obtain a CT scan of brain and EKG provide Tylenol and Valium then re-evaluate. Reevaluation(s) Reevaluation #1: - CT scan of brain within normal limits no acute processes are noted. - TSH level negative. - respiratory panel still pending although patient was negative for COVID. - Lyme titer is pending - UA with +1 leukocytes and 15-29 white blood cells therefore will treat for UTI as patient does not have any epithelial cells. Urine is negative. - the patient's chart and appears that she had a normal transthoracic echocardiogram by Dr. Lund on 06/23/2021 - therefore at this time patient medically cleared and can be discharged home will DC home with antibiotics for UTI and symptomatic treatment along with instructions to return if any new or worsening symptoms to follow up with PCP/cable television program director. I also explained to her that she has pending Lyme titer if it is positive she will be contacted within 7-10 days. Patient understands agrees with this plan. Time: 19:04 [facility] - Weakness Medical Records Attestation: I reviewed the patient's medical records. Lab Data Attestation: I reviewed the patient's lab results. Result diagrams: 06/24/21 15:57 06/24/21 15:57 Labs: Lab Results 06/24/21 06/24/21 06/24/21 Range/Units 15:55 15:57 15:57 WBC 9.7 (4.8-10.8) X10*3/uL RBC 5.15 (4.20-5.50) X10*6/uL Hgb 13.7 (12.0-16.0) g/dl Hct 40.2 (37-47) % MCV 78.1 L (80-98) fL MCH 26.6 L (27.0-33.0) pg MCHC 34.1 (31.0-35.0) g/dl RDW 13.1 (11.0-16.0) % Plt Count 260 (160-400) X10*3/uL MPV 9.9 (9.4-12.3) fL Immature Gran % (Auto) 0.4 (0.0-0.4) % Neut % (Auto) 66.1 (45-73) % Lymph % (Auto) 25.7 (20-40) % Moffat % (Auto) 6.7 (2-11) % Eos % (Auto) 0.5 (0-4) % Baso % (Auto) 0.6 (0-2) % Lymph # (Auto) 2.5 (1.2-4.9) X10*3/uL Moffat # (Auto) 0.7 (0.1-1.2) X10*3/uL Eos # (Auto) 0.1 (0.0-0.4) X10*3/uL Baso # (Auto) 0.1 (0.0-0.2) X10*3/uL Abs Immat Gran (auto) 0.04 H (0.00-0.03) X10*3/uL Absolute Neuts (auto) 6.4 (2.0-8.3) X10*3/uL Absolute Nucleated RBC 0.000 (0.0-0.012) X10*3/uL Nucleated RBC % (auto) 0.0 (0.0-0.2) /100WBC Sodium 140 (135-145) mmol/L Potassium 4.5 (3.3-5.1) mmol/L Chloride 104 (96-108) mmol/L Carbon Dioxide 27 (22-29) mmol/L Anion Gap 14 (12-20) BUN 9 (9-16) mg/dL Creatinine 0.73 (0.5-1.4) mg/dL Estim Creat Clear Calc 99.0 Estimated GFR > 60 Random Glucose 89 (60-115) mg/dL Calcium 9.8 (8.4-10.2) mg/dL Magnesium 2.2 (1.6-2.6) mg/dL Total Bilirubin 0.5 (0.0-1.0) mg/dL AST 15 (5-31) U/L ALT 15 (0-31) U/L Alkaline Phosphatase 74 (39-117) U/L Total Protein 7.8 (6.5-8.0) g/dL Albumin 4.6 (3.5-5.0) g/dL TSH 2.04 (0.32-4.0) uIU/mL Urine Color Urine Appearance Urine pH (5.0-8.0) Ur Specific [place] (1.005-1.025) Urine Protein (NEG-TRACE) MG/DL Urine Glucose (UA) (NEG) MG/DL Urine Ketones (NEG) MG/DL Urine Blood (NEG) Urine Nitrite (NEG) Ur Leukocyte Esterase (NEG) Urine RBC (0) /HPF Urine WBC (0-4) /HPF Ur Squamous Epith Cells /LPF Urine Bacteria /LPF Urine Mucus /LPF Urine Test (NEGATIVE) COVID-19 (GERARDO) Negative (Negative) COVID-19 Clin Com See Note 06/24/21 06/24/21 Range/Units 18:02 18:02 WBC (4.8-10.8) X10*3/uL RBC (4.20-5.50) X10*6/uL Hgb (12.0-16.0) g/dl Hct (37-47) % MCV (80-98) fL MCH (27.0-33.0) pg MCHC (31.0-35.0) g/dl RDW (11.0-16.0) % Plt Count (160-400) X10*3/uL MPV (9.4-12.3) fL Immature Gran % (Auto) (0.0-0.4) % Neut % (Auto) (45-73) % Lymph % (Auto) (20-40) % M[place]at % (Auto) (2-11) % Eos % (Auto) (0-4) % Baso % (Auto) (0-2) % Lymph # (Auto) (1.2-4.9) X10*3/uL [place]at # (Auto) (0.1-1.2) X10*3/uL Eos # (Auto) (0.0-0.4) X10*3/uL Baso # (Auto) (0.0-0.2) X10*3/uL Abs Immat Gran (auto) (0.00-0.03) X10*3/uL Absolute Neuts (auto) (2.0-8.3) X10*3/uL Absolute Nucleated RBC (0.0-0.012) X10*3/uL Nucleated RBC % (auto) (0.0-0.2) /100WBC Sodium (135-145) mmol/L Potassium (3.3-5.1) mmol/L Chloride (96-108) mmol/L Carbon Dioxide (22-29) mmol/L Anion Gap (12-20) BUN (9-16) mg/dL Creatinine (0.5-1.4) mg/dL Estim Creat Clear Calc Estimated GFR Random Glucose (60-115) mg/dL Calcium (8.4-10.2) mg/dL Magnesium (1.6-2.6) mg/dL Total Bilirubin (0.0-1.0) mg/dL AST (5-31) U/L ALT (0-31) U/L Alkaline Phosphatase (39-117) U/L Total Protein (6.5-8.0) g/dL Albumin (3.5-5.0) g/dL TSH (0.32-4.0) uIU/mL Urine Color YELLOW Urine Appearance CLEAR Urine pH 6.0 (5.0-8.0) Ur Specific [place] 1.020 (1.005-1.025) Urine Protein NEG (NEG-TRACE) MG/DL Urine Glucose (UA) NEG (NEG) MG/DL Urine Ketones NEG (NEG) MG/DL Urine Blood NEG (NEG) Urine Nitrite NEG (NEG) Ur Leukocyte Esterase 1+ H (NEG) Urine RBC 0-2 (0) /HPF Urine WBC 15-29 H (0-4) /HPF Ur Squamous Epith Cells 1+ /LPF Urine Bacteria 2+ /LPF Urine Mucus TRACE /LPF Urine Test NEGATIVE (NEGATIVE) COVID-19 (GERARDO) (Negative) COVID-19 Clin Com Imaging Data CT scan of brain without contrast: Attestation: I personally reviewed and interpreted this imaging study as follows: Radiologist's impression: FINDINGS: There is no evidence of acute intracranial hemorrhage or territorial infarction. No abnormal mass-effect or midline shift is seen. Cid to white matter differentiation is well preserved. No extra-axial fluid collections are identified. The ventricles are normal in size. There is no abnormal attenuation within the brain parenchyma. There is no osseous abnormality. The mastoid air cells and visualized portions of the paranasal sinuses are well-aerated. ? CT/CT head/brain wo con IMPRESSION: No acute intracranial pathology. Discharge Plan Discharge Clinical Impression: Generalized weakness, Generalized body aches, Generalized headaches, UTI (urinary tract infection) Patient Disposition: Home, Self-Care Instructions: Urinary Tract Infection in Women (ED), General Headache (ED) Additional Instructions: You have pending lab results if any are positive you will be contacted. All your other results today were within normal limits other than your urinary infection. Please follow-up with her primary care provider/cable television program director and return if any new or worsening symptoms. Prescriptions: New penicillin V potassium 500 mg tablet 500 mg PO Q12H 10 Days Qty: 20 RF: 0 cyclobenzaprine 10 mg tablet 10 mg PO Q8H PRN (Reason: Muscle spasm) Qty: 14 RF: 0 acetaminophen [Tylenol Extra Strength] 500 mg tablet 1,000 mg PO QID PRN (Reason: fever or pain) Qty: 14 RF: 0 No Action naproxen 500 mg tablet 500 mg PO BID PRN (Reason: pain) Qty: 20 RF: 0 amoxicillin 500 mg tablet 500 mg PO TID 5 Days Qty: 15 RF: 0 Trulance 3 mg tablet 3 mg PO DAILY RF: 0 Citrucel 500 mg tablet 500 mg PO BID RF: 0 magnesium oxide 500 mg capsule 500 mg PO BID Qty: 60 RF: 6 hydrocortisone [Proctosol HC] 2.5 % cream with perineal applicator 1 appl CA BID PRN (Reason: hemorrhoids) Qty: 30 RF: 3 Creon 24,000-76,000 -120,000 unit capsule,delayed release(DR/EC) 1 cap PO QID 30 Days Qty: 120 RF: 1 simethicone 180 mg capsule 180 mg PO QID 30 Days Qty: 120 RF: 3 bisacodyl [Dulcolax (bisacodyl)] 5 mg tablet,delayed release (DR/EC) 10 mg PO BEDTIME 30 Days Qty: 60 RF: 6 metoclopramide HCl [Reglan] 5 mg tablet 5 mg PO .QIDAC 30 Days Qty: 90 RF: 3 pantoprazole [Protonix] 40 mg tablet,delayed release (DR/EC) 40 mg PO BID RF: 0 Referrals: Jah Root MD [Primary Care Provider] - 2 days Stand Alone Forms: Work/School Release Print Language: Tajik
[2021-06-24 18:21] LABS: Bacteria Urine 2+ /LPF; Mucus Urine TRACE /LPF; RBC Urine 0-2 /HPF (0); Squamous Epithelial Cell Urine 1+ /LPF
--- NOTE | 2021-06-24 18:26 | ECG_ITS ---
Test Reason : weakness Blood Pressure : / mmHG Vent. Rate : 073 BPM Atrial Rate : 073 BPM P-R Int : 170 ms QRS Dur : 080 ms QT Int : 394 ms P-R-T Axes : 058 039 012 degrees QTc Int : 434 ms Normal sinus rhythm Normal ECG No significant changes seen Referred By: Kristen Otto Electronically Signed By:EMILY YAP MD
[2021-06-24 18:40] LABS: TSH reflex Free T4 2.04 uIU/mL (0.32-4.0)
[2021-06-26 15:46] LABS: Lyme Abs Screen <0.90 index
== END 2021-06-24 20:01 | disposition home or self-care (01) ==
PROVIDERS: Physician Assistant Medical; Emergency Provider Internal Medicine; PCP Internal Medicine
DX: N39.0 Urinary tract infection, site not specified (principal); R53.1 Weakness; R52 Pain, unspecified; R51.9 Headache, unspecified; D56.3 Thalassemia minor; Z20.822 Contact with and (suspected) exposure to COVID-19
CPT/HCPCS: 36415; 70450; 80053; 81001; 81025; 83735; 84443; 85025; 86617; 86618; 87086; 87633; 87635; 93005; 99284

== ENCOUNTER → 2021-07-10 09:11 | Outpatient (BNVA) | payer MEDICAID, SELFPAY | PROVIDERS: PCP Internal Medicine; Visit Provider Nurse Practitioner ==

== ENCOUNTER 2021-07-25 07:56 | Outpatient (REF) | payer MEDICAID, SELFPAY ==
--- NOTE | ~2021-07-25 | US_ITS ---
EXAMINATION: US ABDOMEN COMPLETE CLINICAL INFORMATION: Upper quadrant pain. Evaluate for gallstones. COMPARISON: Limited abdominal ultrasound 12/06/2020. CT abdomen and pelvis 06/30/2020. X-ray abdomen 10/19/2019. Ultrasound abdomen 07/11/2015. TECHNIQUE: Real-time imaging of the abdominal viscera. FINDINGS: PANCREAS: Visualized portions of pancreas are normal in appearance. ABDOMINAL AORTA: The proximal, mid, and distal segments are normal in caliber. INFERIOR VENA CAVA: Visualized portions are normal. LIVER: The liver is normal in size. The liver contour is normal. Diffuse increased liver echogenicity. No focal hepatic lesion. There is no intrahepatic biliary duct dilatation seen. GALLBLADDER: Normal. The gallbladder is physiologically distended without evidence of stones, sludge, polyps, wall thickening or pericholecystic fluid. Negative sonographic Sanchez's sign. COMMON BILE DUCT: Normal in caliber measuring 0.4 cm in diameter. RIGHT KIDNEY: Normal. No hydronephrosis. No renal calculi or focal parenchymal lesions. The kidney measures 11.1 cm in maximum dimension. LEFT KIDNEY: Normal. No hydronephrosis. No renal calculi or focal parenchymal lesions. The kidney measures 10.9 cm in maximum dimension. SPLEEN: Normal. The spleen measures 8.4 cm in maximum dimension. FREE FLUID: None. US/US abdomen complete IMPRESSION: Diffusely increased liver echogenicity. This is a nonspecific finding but most suggestive of hepatic steatosis. Correlation with liver enzymes recommended.
== END 2021-07-25 07:57 | disposition home or self-care (01) ==
LOC: HO.US 07:56
PROVIDERS: Absent Provider Internal Medicine; PCP Internal Medicine; Visit Provider Family Medicine
DX: R10.11 Right upper quadrant pain (principal); R00.2 Palpitations; R42 Dizziness and giddiness; Z79.899 Other long term (current) drug therapy
CPT/HCPCS: 76700; 99212

== ENCOUNTER 2021-08-07 11:07 | Outpatient (REF) | payer MEDICAID, SELFPAY ==
[2021-08-07 13:32] LABS: Appearance Urine HAZY; Color Urine YELLOW; Glucose Urine UA NEG (NEG); Leukocyte Esterase Urine NEG (NEG); Nitrite Urine NEG (NEG); Specific Gravity - Urine 1.025 (1.005-1.025); Urine Blood NEG (NEG); Urine Ketones NEG (NEG); Urine Protein NEG (NEG-TRACE)
[2021-08-07 13:53] LABS: Amylase 71 U/L (28-100); Lipase 20 U/L (8-78); Uric Acid 4.5 mg/dL (2.4-5.7)
== END 2021-08-07 11:08 | disposition home or self-care (01) ==
LOC: HO.LAB 11:07
PROVIDERS: PCP Internal Medicine; Referring Provider Internal Medicine; Visit Provider Nurse Practitioner
DX: R10.13 Epigastric pain (principal); R13.10 Dysphagia, unspecified; K59.04 Chronic idiopathic constipation; K21.9 Gastro-esophageal reflux disease without esophagitis; K82.8 Other specified diseases of gallbladder
CPT/HCPCS: 36415; 81003; 82150; 83690; 84550; 99212

== ENCOUNTER 2021-08-09 14:01 | Outpatient (REF) | payer MEDICAID, SELFPAY ==
--- NOTE | ~2021-08-09 | US_ITS ---
EXAMINATION: US SOFT TISSUE NECK CLINICAL INFORMATION: Right neck pain and subcutaneous mass. Enlarged lymph nodes. COMPARISON: None TECHNIQUE: Ultrasound of the neck soft tissues is performed with high- frequency harrell-scale imaging and color Doppler. FINDINGS: The right submandibular gland is normal-appearing. There are 2 lymph nodes seen adjacent to the right submandibular gland measuring 7 x 9 x 4 mm and 7 x 5 x 13 mm. The later lymph node is slightly enlarged. These demonstrate normal ultrasound morphology and flow. US/US soft tiss head and/or neck IMPRESSION: Two lymph nodes adjacent to the right submandibular gland. These demonstrate normal ultrasound morphology and flow. One lymph node appears slightly enlarged.
== END 2021-08-09 14:02 | disposition home or self-care (01) ==
LOC: HO.US 14:01
PROVIDERS: Absent Provider Internal Medicine; PCP Internal Medicine; Visit Provider Family Medicine
DX: R59.0 Localized enlarged lymph nodes (principal)
CPT/HCPCS: 76536

== ENCOUNTER → 2021-08-22 11:03 | Outpatient (BNVA) | payer MEDICAID, SELFPAY | PROVIDERS: PCP Internal Medicine; Referring Provider Internal Medicine; Visit Provider Nurse Practitioner | DX: R10.10 Upper abdominal pain, unspecified (principal); K21.9 Gastro-esophageal reflux disease without esophagitis; K59.04 Chronic idiopathic constipation; K59.9 Functional intestinal disorder, unspecified; K82.8 Other specified diseases of gallbladder | CPT/HCPCS: 99212 ==

== ENCOUNTER 2021-08-24 18:44 | Outpatient (REF) | payer MEDICAID, SELFPAY ==
--- NOTE | ~2021-08-24 | MR_ITS ---
EXAMINATION: MR THORACIC SPINE WITHOUT CONTRAST CLINICAL INFORMATION: Pain. COMPARISON: None TECHNIQUE: MRI of the thoracic spine was obtained using routine sequences without contrast. FINDINGS: The thoracic vertebral bodies maintain normal heights and alignment. There is multilevel intervertebral disc height loss with degenerative endplate changes seen anteriorly at T6-T7, T7-T8, T8-T9, and T11-T12. No bone marrow edema is seen. The thoracic cord signal appears normal. A 9 mm cystic focus is seen just ventral to the vertebral column at the T6 level, likely lymphatic. There is no significant disc herniation, spinal canal stenosis, or neural foraminal stenosis. No significant extraspinal abnormality is seen. MR/MR thoracic spine wo con IMPRESSION: No significant abnormality identified. No spinal canal or neural foraminal stenosis.
== END 2021-08-24 18:45 | disposition home or self-care (01) ==
LOC: HO.MRI 18:44
PROVIDERS: PCP Internal Medicine; Visit Provider Internal Medicine
DX: M54.6 Pain in thoracic spine (principal)
CPT/HCPCS: 72146

== ENCOUNTER → 2021-09-19 09:06 | Outpatient (BNVA) | payer MEDICAID, SELFPAY | PROVIDERS: PCP Internal Medicine; Referring Provider Internal Medicine; Visit Provider Nurse Practitioner | DX: K59.9 Functional intestinal disorder, unspecified (principal); K82.8 Other specified diseases of gallbladder; K21.9 Gastro-esophageal reflux disease without esophagitis; K59.04 Chronic idiopathic constipation; R10.30 Lower abdominal pain, unspecified; R10.9 Unspecified abdominal pain | CPT/HCPCS: 99212 ==

== ENCOUNTER → 2021-11-09 09:21 | Outpatient (BNVA) | payer MEDICAID, SELFPAY | PROVIDERS: PCP Internal Medicine; Referring Provider Internal Medicine; Visit Provider Nurse Practitioner | DX: K64.8 Other hemorrhoids (principal); K59.9 Functional intestinal disorder, unspecified; K82.8 Other specified diseases of gallbladder; K21.9 Gastro-esophageal reflux disease without esophagitis; K59.04 Chronic idiopathic constipation; R10.9 Unspecified abdominal pain; R10.10 Upper abdominal pain, unspecified | CPT/HCPCS: 46600; 99202; 99212 ==

== ENCOUNTER 2021-11-27 11:44 | Outpatient (REF) | payer MEDICAID, SELFPAY | END 2021-11-27 11:45 | disposition home or self-care (01) | LOC: HO.LNP 11:44 | PROVIDERS: Visit Provider Nurse Practitioner | DX: R10.10 Upper abdominal pain, unspecified (principal); K59.09 Other constipation; K59.04 Chronic idiopathic constipation; K21.9 Gastro-esophageal reflux disease without esophagitis | CPT/HCPCS: 87338; 99212 ==

== ENCOUNTER 2021-12-03 10:10 | Emergency (ER) | payer MEDICAID, SELFPAY ==
--- NOTE | ~2021-12-03 | US_ITS ---
EXAMINATION: US ABDOMEN LIMITED CLINICAL INFORMATION: Evaluate gallbladder. COMPARISON: Abdominal ultrasound July 2020 TECHNIQUE: Real-time imaging of the right upper quadrant to specifically evaluate the gallbladder and common bile duct FINDINGS: Gallbladder appears normal. Gallbladder wall 0.16 cm. No gallbladder wall thickening. Common bile duct measures 0.27 cm US/US abdomen limited IMPRESSION: Limited evaluation of right upper quadrant. Gallbladder and extrahepatic biliary tree normal.
[2021-12-03 10:15] VITALS: BP 149/87; PULSE 86; RESP 16; TEMP 36; O2SAT 98; BMI 29.2
--- NOTE | 2021-12-03 11:41 | ED_ITS ---
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 Patient reports pain in upper abdomen described as pressure worsened with empty stomach and after eating food. Vomiting food content. Feels burning in her esophagus. No weight loss, fever, urinary symptoms, diarrhea. H/o constipation with last BM this morning. Followed by GI Clementina Ledezma and is on nexium 40mg, Miralax daily, colace daily. Reportedly last endoscopy 2 yrs ago which showed ?esophagitis/GERD. Has had HIDA scan which was + for chronic anival . Patient has not been evaluated by surgery. Related Data Home Medications Medication Instructions Recorded Confirmed methylcellulose (laxative) 500 mg 500 mg PO BID 07/13/20 11/09/21 tablet (Citrucel) Previous Rx's Medication Instructions Recorded hydrocortisone 2.5 % topical cream 1 appl CA BID PRN #30 g 08/25/20 with perineal applicator (Proctosol HC) naproxen 500 mg tablet 500 mg PO BID PRN #20 tab 09/15/20 simethicone 180 mg capsule 180 mg PO QID 30 Days #120 cap 12/13/20 bisacodyl 5 mg tablet,delayed 10 mg PO BEDTIME 30 Days #60 tab 01/19/21 release (Dulcolax (bisacodyl)) acetaminophen 500 mg tablet 1,000 mg PO QID PRN #14 tab 06/24/21 (Tylenol Extra Strength) cyclobenzaprine 10 mg tablet 10 mg PO Q8H PRN #14 tab 06/24/21 rabeprazole 20 mg tablet,delayed 20 mg PO BID 60 Days #120 tab 08/07/21 release (AcipHex) dicyclomine 10 mg capsule 10 mg PO .TIDAC #90 cap 09/19/21 linaclotide 72 mcg capsule 72 mcg PO QAM #30 cap 11/27/21 (Linzess) metoclopramide HCl 10 mg tablet 10 mg PO QIDACHS #120 tab 11/27/21 (Reglan) sucralfate 1 gram tablet (Carafate) 1 g PO .achs #90 tab 12/03/21 Allergies Allergy/AdvReac Type Severity Reaction Status Date / Time No Known Allergies Allergy Verified 11/27/21 14:15 Review of Systems Review of Systems Yes all other systems are reviewed and are negative Constitutional: Reports no additional constitutional complaints, Denies body ache(s), Denies chills, Denies fever(s), Denies headache(s) and Denies weakness Eyes: Reports no additional eye complaints and Denies change in vision Reports system reviewed and no additional complaints, except as documented, Denies dizziness, Denies headache(s), Denies nasal congestion, Denies nasal discharge and Denies neck pain Cardiovascular: Reports no additional cardiovascular complaints, Denies chest pain, Denies leg edema and Denies dyspnea Respiratory: Reports no additional respiratory complaints, Denies cough and Denies dyspnea Gastrointestinal: Reports no additional gastrointestinal complaints, Reports abdominal pain, Reports constipation, Denies diarrhea, Reports nausea and Reports vomiting Genitourinary: Reports no additional female genitourinary complaints and Denies urinary incontinence Musculoskeletal: Reports no additional musculoskeletal complaints, Denies back pain, Denies arthralgias, Denies joint swelling, Denies neck pain, Denies numbness and Denies tingling Skin/Breast: Reports system reviewed and no additional complaints, except as docu and Denies rash Reports system reviewed and no additional complaints, except as documented, Den ies dizziness, Denies headache(s), Denies numbness, Denies tingling and Denies weakness PMFSH Past Medical History Attestation statement: The following information was validated with the patient. Source: old records reviewed and nursing notes reviewed Medical History Candidiasis of mouth and esophagus Dysphagia Hemorrhoids with complication No known health problems Odynophagia Surgical History History of esophagogastroduodenoscopy (EGD) History of tonsillectomy Hx of colonoscopy Family History Family History Father CVD (cardiovascular disease) Colon polyps Hypercholesteremia Diabetes Mother Thyroid condition CVD (cardiovascular disease) Fibromyalgia Heart problem Hypertension Sister HIV (human immunodeficiency virus infection) Brother No problems noted. Son No problems noted. Son No problems noted. Social History Social History Household Members: Children Alcohol intake: unknown Patient Tobacco Use Status: Never used Tobacco Advance Directives: No Advance Directives Information Provided: No Physical Exam ED Vital Signs: Vital Signs - 24 hr 12/03/21 10:15 12/03/21 12:22 Temperature 96.8 F Pulse Rate 86 73 Respiratory Rate 16 16 Blood Pressure 149/87 H 129/79 Pulse Oximetry 98 BMI result Body Mass Index 29.2 Const General: cooperative, healthy appearing, comfortable and no acute distress Orientation/consciousness: patient oriented x3 Limitations: no limitations HENMT Head: Yes normal to inspection Ears: hearing grossly normal bilaterally and TM's normal bilaterally General nose exam: Normal external nose present Face and sinus: Yes normal facial exam Mouth: Normal oral and palatal mucosa present Teeth and gingiva: dentition normal Throat: Yes posterior oropharynx normal, Yes tonsils normal and Yes uvula midline Eyes General: appearance normal, both eyes and all related structures Pupils: Equal, round and reactive pupils present Neck Neck: Yes normal visual inspection, Yes full ROM, Yes no lymphadenopathy and Yes no meningeal signs Chest Chest palpation & inspection: normal inspection of the chest Resp Effort & Inspection: normal respiratory effort Auscultation: clear to auscultation bilaterally Cardio Rate: regular rate Rhythm: regular rhythm Peripheral pulses: Peripheral pulses 2+ throughout GI Inspection: Yes normal to inspection Palpation (GI): Soft to palpation and Tenderness to palpation present (GI) (RUQ/epigastric) General: Yes no CVA tenderness Back/Spine/Pelvis Back: no CVA tenderness Skin General skin exam: no rashes or lesions noted Neuro General: patient oriented x3, tone normal, moves all extremities and no meningeal signs Cranial nerves: Yes Equal, round and reactive pupils present Extrem General: Yes normal to inspection, Yes no pedal edema and Yes no calf tenderness Course Course Course Narrative: 35 yo female here with acute on chronic abdominal pain, vomiting x 3 weeks with known history of GERD, biliary dyskinesia. On exam tender to epigastric/RUQ Will check labs, UA, abdominal US 1400-labs and urine are unremarkable. Abdominal ultrasound shows no acute cholecystitis. I did review the patient's previous imaging (HIDA) which showed biliary dyskinesia. Explain her this may be causing some of her pain. In addition the patient has known GERD and gastritis which may also be contributing to her pain and vomiting. Likely multifactorial. Patient is on Nexium. Will add Carafate a.c. HS. Recommend patient follow-up with General surgery and Gastroenterology. Pain is improved on discharge. Tolerating p.o.. Reviewed worrisome signs and symptoms of when to return to the emergency department. Comfortable discharge home MDM - Abdominal Pain MDM Narrative Medical decision making narrative: cholecystitis Differential Diagnosis Differential diagnosis: Likely abdominal pain and gastritis Medical Records Attestation: I reviewed the patient's medical records. Lab Data Attestation: I reviewed the patient's lab results. Result diagrams: 12/03/21 12:18 12/03/21 12:18 Labs: Lab Results 12/03/21 12/03/21 12/03/21 Range/Units 11:53 11:54 12:18 WBC 7.3 (4.8-10.8) X10*3/uL RBC 4.85 (4.20-5.50) X10*6/uL Hgb 12.7 (12.0-16.0) g/dl Hct 38.3 (37.0-47.0) % MCV 79.0 L (80.0-98.0) fL MCH 26.2 L (27.0-33.0) pg MCHC 33.2 (31.0-35.0) g/dl RDW 12.3 (11.0-16.0) % Plt Count 238 (160-400) X10*3/uL MPV 9.8 (9.4-12.3) fL Immature Gran % (Auto) 0.3 (0.0-0.4) % Neut % (Auto) 68.0 (45-73) % Lymph % (Auto) 24.8 (20-40) % [place] % (Auto) 5.9 (2-11) % Eos % (Auto) 0.5 (0-4) % Baso % (Auto) 0.5 (0-2) % Lymph # (Auto) 1.8 (1.2-4.9) X10*3/uL [place] # (Auto) 0.4 (0.1-1.2) X10*3/uL Eos # (Auto) 0.0 (0.0-0.4) X10*3/uL Baso # (Auto) 0.0 (0.0-0.2) X10*3/uL Abs Immat Gran (auto) 0.02 (0.00-0.03) X10*3/uL Absolute Neuts (auto) 5.0 (2.0-8.3) x10*3/uL Absolute Nucleated RBC 0.000 (0.0-0.012) X10*3/uL Nucleated RBC % (auto) 0.0 (0.0-0.2) /100WBC Sodium (135-145) mmol/L Potassium (3.3-5.1) mmol/L Chloride (96-108) mmol/L Carbon Dioxide (22-29) mmol/L Anion Gap (12-20) BUN (9-16) mg/dL Creatinine (0.5-1.4) mg/dL Estim Creat Clear Calc Estimated GFR Random Glucose (60-115) mg/dL Calcium (8.4-10.2) mg/dL Magnesium (1.6-2.6) mg/dL Total Bilirubin (0.0-1.0) mg/dL Direct Bilirubin (0.0-0.5) mg/dL AST (5-31) U/L ALT (0-31) U/L Alkaline Phosphatase (39-117) U/L Total Protein (6.5-8.0) g/dL Albumin (3.5-5.0) g/dL Lipase (8-78) U/L Urine Color STRAW Urine Appearance CLEAR Urine pH 6.5 (5.0-8.0) Ur Specific [place] 1.010 (1.005-1.025) Urine Protein NEG (NEG-TRACE) MG/DL Urine Glucose (UA) NEG (NEG) MG/DL Urine Ketones NEG (NEG) MG/DL Urine Blood TRACE (NEG) Urine Nitrite NEG (NEG) Ur Leukocyte Esterase 2+ H (NEG) Urine RBC 0 (0) /HPF Urine WBC 5-9 H (0-4) /HPF Ur Squamous Epith Cells 2+ /LPF Urine Bacteria TRACE /LPF Urine Test NEGATIVE (NEGATIVE) 12/03/21 Range/Units 12:18 WBC (4.8-10.8) X10*3/uL RBC (4.20-5.50) X10*6/uL Hgb (12.0-16.0) g/dl Hct (37.0-47.0) % MCV (80.0-98.0) fL MCH (27.0-33.0) pg MCHC (31.0-35.0) g/dl RDW (11.0-16.0) % Plt Count (160-400) X10*3/uL MPV (9.4-12.3) fL Immature Gran % (Auto) (0.0-0.4) % Neut % (Auto) (45-73) % Lymph % (Auto) (20-40) % [place] % (Auto) (2-11) % Eos % (Auto) (0-4) % Baso % (Auto) (0-2) % Lymph # (Auto) (1.2-4.9) X10*3/uL [place] # (Auto) (0.1-1.2) X10*3/uL Eos # (Auto) (0.0-0.4) X10*3/uL Baso # (Auto) (0.0-0.2) X10*3/uL Abs Immat Gran (auto) (0.00-0.03) X10*3/uL Absolute Neuts (auto) (2.0-8.3) x10*3/uL Absolute Nucleated RBC (0.0-0.012) X10*3/uL Nucleated RBC % (auto) (0.0-0.2) /100WBC Sodium 141 (135-145) mmol/L Potassium 4.1 (3.3-5.1) mmol/L Chloride 105 (96-108) mmol/L Carbon Dioxide 29 (22-29) mmol/L Anion Gap 11 L (12-20) BUN 8 L (9-16) mg/dL Creatinine 0.67 (0.5-1.4) mg/dL Estim Creat Clear Calc 108.2 Estimated GFR > 60 Random Glucose 104 (60-115) mg/dL Calcium 9.6 (8.4-10.2) mg/dL Magnesium 2.1 (1.6-2.6) mg/dL Total Bilirubin 0.5 (0.0-1.0) mg/dL Direct Bilirubin 0.2 (0.0-0.5) mg/dL AST 14 (5-31) U/L ALT 16 (0-31) U/L Alkaline Phosphatase 74 (39-117) U/L Total Protein 7.3 (6.5-8.0) g/dL Albumin 4.4 (3.5-5.0) g/dL Lipase 24 (8-78) U/L Urine Color Urine Appearance Urine pH (5.0-8.0) Ur Specific [place] (1.005-1.025) Urine Protein (NEG-TRACE) MG/DL Urine Glucose (UA) (NEG) MG/DL Urine Ketones (NEG) MG/DL Urine Blood (NEG) Urine Nitrite (NEG) Ur Leukocyte Esterase (NEG) Urine RBC (0) /HPF Urine WBC (0-4) /HPF Ur Squamous Epith Cells /LPF Urine Bacteria /LPF Urine Test (NEGATIVE) Imaging Data US - abdomen: Attestation: I personally reviewed and interpreted this imaging study as follows: Radiologist's impression: ORMATION: Evaluate gallbladder. COMPARISON: Abdominal ultrasound July 2020 TECHNIQUE: Real-time imaging of the right upper quadrant to specifically evaluate the gallbladder and common bile duct FINDINGS: Gallbladder appears normal. Gallbladder wall 0.16 cm. No gallbladder wall thickening. Common bile duct measures 0.27 cm ? US/US abdomen limited IMPRESSION: Limited evaluation of right upper quadrant. Gallbladder and extrahepatic biliary tree normal. Discharge Plan Discharge Clinical Impression: Biliary dyskinesia, Gastritis Patient Disposition: Home, Self-Care Instructions: Gastritis (DC), Biliary Dyskinesia (DC) Additional Instructions: Very bland diet Start carafate Continue your normal medications Prescriptions: New sucralfate [Carafate] 1 gram tablet 1 g PO .achs Qty: 90 0RF No Action naproxen 500 mg tablet 500 mg PO BID PRN (Reason: pain) Qty: 20 0RF cyclobenzaprine 10 mg tablet 10 mg PO Q8H PRN (Reason: Muscle spasm) Qty: 14 0RF acetaminophen [Tylenol Extra Strength] 500 mg tablet 1,000 mg PO QID PRN (Reason: fever or pain) Qty: 14 0RF Citrucel 500 mg tablet 500 mg PO BID 0RF hydrocortisone [Proctosol HC] 2.5 % cream with perineal applicator 1 appl CA BID PRN (Reason: hemorrhoids) Qty: 30 3RF simethicone 180 mg capsule 180 mg PO QID 30 Days Qty: 120 3RF Rx Instructions: after meals bisacodyl [Dulcolax (bisacodyl)] 5 mg tablet,delayed release (DR/EC) 10 mg PO BEDTIME 30 Days Qty: 60 6RF rabeprazole [AcipHex] 20 mg tablet,delayed release (DR/EC) 20 mg PO BID 60 Days Qty: 120 3RF Linzess 72 mcg capsule 72 mcg PO QAM Qty: 30 6RF metoclopramide HCl [Reglan] 10 mg tablet 10 mg PO QIDACHS Qty: 120 6RF dicyclomine 10 mg capsule 10 mg PO .TIDAC Qty: 90 3RF Referrals: Jah Root MD [Primary Care Provider] - 5 days Augustine Quezada MD [Physician] - 5 days Print Language: Salvadorean
[2021-12-03 12:08] LABS: Appearance Urine CLEAR; Color Urine STRAW; Glucose Urine UA NEG (NEG); Leukocyte Esterase Urine 2+ (NEG); Nitrite Urine NEG (NEG); PH 6.5 (5.0-8.0); UACC Culture Trigger YES; Urine Blood TRACE (NEG); Urine Ketones NEG (NEG); Urine Protein NEG (NEG-TRACE)
[2021-12-03 12:10] LABS: UPreg QC Valid YES; Urine Pregnancy NEGATIVE (NEGATIVE)
[2021-12-03] MEDS: Magnesium Hydrox/Alum Hydrox 30 ML ORAL.SUSP PO (12:18)
[2021-12-03] MEDS: Famotidine/PF 20 MG/2 ML VIAL IVPUSH (12:18)
[2021-12-03] MEDS: Lidocaine HCl Viscous 2 % 15 ML SOLUTION MUCOUS MEM (12:18)
[2021-12-03 12:20] LABS: Bacteria Urine TRACE /LPF; RBC Urine 0 /HPF (0); Squamous Epithelial Cell Urine 2+ /LPF
[2021-12-03 12:22] VITALS: BP 129/79; PULSE 73; RESP 16
--- NOTE | 2021-12-03 12:25 | PC.NURSE ---
Pt c/o diffuse abd pain which has been chronic in nature but worsening over the past 3 weeks with N/V, Dx'd with GERD in the past. Pt is A&Ox4, LCA, abd soft TTP in RUQ only, +BS. Medicated as per MAR orders. US completed, awaiting results at this time. Will continue to monitor.
[2021-12-03 12:26] LABS: MANUAL DIFF FLAG NO
[2021-12-03 12:28] LABS: Basophils Percent Auto 0.5 % (0-2); Eosinophils Percent Auto 0.5 % (0-4); Hematocrit 38.3 % (37.0-47.0); Hemoglobin 12.7 g/dl (12.0-16.0); Imm Gran Abs Auto 0.02 X10*3/uL (0.00-0.03); Imm Gran Pct Auto 0.3 % (0.0-0.4); Lymphocytes Absolute Auto 1.8 X10*3/uL (1.2-4.9); Lymphocytes Percent Auto 24.8 % (20-40); Mean Corpuscular HGB Conc 33.2 g/dl (31.0-35.0); Mean Corpuscular Hemoglobin 26.2 pg (27.0-33.0); Mean Platelet Volume 9.8 fL (9.4-12.3); Monocytes Absolute Auto 0.4 X10*3/uL (0.1-1.2); Monocytes Percent Auto 5.9 % (2-11); Platelet Count 238 X10*3/uL (160-400); Red Blood Count 4.85 X10*6/uL (4.20-5.50); Red Cell Distribution Width 12.3 % (11.0-16.0); White Blood Count 7.3 X10*3/uL (4.8-10.8)
[2021-12-03 12:44] LABS: Alanine Aminotransferase 16 U/L (0-31); Albumin Level 4.4 g/dL (3.5-5.0); Alkaline Phosphatase 74 U/L (39-117); Anion Gap 11 (12-20); Aspartate Amino Transferase 14 U/L (5-31); Bilirubin Direct 0.2 mg/dL (0.0-0.5); Bilirubin Total 0.5 mg/dL (0.0-1.0); Blood Urea Nitrogen 8 mg/dL (9-16); Calcium 9.6 mg/dL (8.4-10.2); Carbon Dioxide 29 mmol/L (22-29); Chloride 105 mmol/L (96-108); Creatinine Clr Calc Pharmacy 108.2; Estimated Glomerular Filt Rate > 60; Glucose Random 104 mg/dL (60-115); Lipase 24 U/L (8-78); Magnesium 2.1 mg/dL (1.6-2.6); Potassium 4.1 mmol/L (3.3-5.1); Sodium 141 mmol/L (135-145); Total Protein 7.3 g/dL (6.5-8.0)
== END 2021-12-03 14:18 | disposition home or self-care (01) ==
PROVIDERS: Nurse Practitioner Family; Emergency Provider Emergency Medicine; PCP Internal Medicine
DX: K29.70 Gastritis, unspecified, without bleeding (principal); K82.8 Other specified diseases of gallbladder; R10.10 Upper abdominal pain, unspecified; R51.9 Headache, unspecified; Z79.899 Other long term (current) drug therapy
CPT/HCPCS: 36415; 76705; 80048; 80076; 81001; 81025; 83690; 83735; 85025; 87086; 87147; 96374; 99284

== ENCOUNTER → 2022-01-23 13:01 | Outpatient (BNVA) | payer MEDICAID, SELFPAY | PROVIDERS: PCP Internal Medicine; Referring Provider Internal Medicine; Visit Provider Surgery | DX: K82.8 Other specified diseases of gallbladder (principal) | CPT/HCPCS: 99202 ==

== ENCOUNTER → 2022-01-30 15:04 | Outpatient (BNVA) | payer MEDICAID, SELFPAY | PROVIDERS: PCP Internal Medicine; Referring Provider Internal Medicine; Visit Provider Nurse Practitioner | DX: K59.04 Chronic idiopathic constipation (principal); K21.9 Gastro-esophageal reflux disease without esophagitis; K59.9 Functional intestinal disorder, unspecified; K82.8 Other specified diseases of gallbladder; Z79.899 Other long term (current) drug therapy | CPT/HCPCS: 99212 ==

== ENCOUNTER 2022-02-18 09:06 | Emergency (ER) | payer MEDICAID, SELFPAY ==
--- NOTE | ~2022-02-18 | CT_ITS ---
EXAMINATION: CT ABDOMEN AND PELVIS WITH CONTRAST CLINICAL INFORMATION: Epigastric pain and black stool. Rule out GI bleed. COMPARISON: Previous abdominal ultrasound November [address] of the abdomen and pelvis June 2020 TECHNIQUE: Multidetector volumetric images were obtained from the superior aspect of the liver through the pubic symphysis following administration 85 mL of Omnipaque 350 intravenous contrast. Sagittal and coronal reformatted images were obtained on the technologist's workstation. Oral contrast: Yes This CT examination was performed using dose optimization techniques as appropriate, variously including the following: *Automated exposure control *Adjustment of mA and/or kV according to patient size (this includes techniques or standardized protocols for targeted exams where dose is matched to indication/reason for exam; i.e. extremities or head) *Use of iterative reconstruction technique DLP: 525 mGy-cm FINDINGS: LUNG BASES: The visualized lung bases are unremarkable. LIVER, GALLBLADDER, AND BILIARY TREE: The liver is normal in size, shape, and attenuation. No focal hepatic lesion or biliary ductal dilatation is present. The gallbladder is unremarkable with no evidence of radiopaque gallstones, gallbladder wall thickening, or obvious pericholecystic inflammatory changes. PANCREAS: Unremarkable. SPLEEN: Unremarkable. ADRENAL GLANDS: Unremarkable. KIDNEYS AND URETERS: The kidneys are normal in size, shape, and attenuation. Mild bilateral hydronephrosis and ureteral dilatation. BLADDER: Bladder is well-distended but unremarkable. GASTROINTESTINAL TRACT: There are slightly distended fluid-filled loops of small bowel in the left abdomen. Small bowel loops measure up to 3.2 cm. This probably represents an ileus. No bowel wall thickening and mural nodule mesenteric mass The small and large bowel are otherwise unremarkable. The appendix is not seen. ABDOMINAL WALL: No significant hernia is appreciated. LYMPH NODES: Normal. Or mesenteric changes are seen. VASCULAR: Unremarkable. PELVIC VISCERA: Unremarkable. Trace fluid in the pelvis. OSSEOUS STRUCTURES: Unremarkable. CT/CT abdomen pelvis w con IMPRESSION: No cause GI bleeding seen. Mildly dilated fluid-filled small bowel in the left abdomen probably representing an ileus. Mild bilateral hydronephrosis and ureteral dilatation. This may be due to a well-distended bladder. Fleischner guidelines were followed.
[2022-02-18 09:17] VITALS: BP 124/76; PULSE 85; RESP 16; TEMP 36.6; O2SAT 98; BMI 28.7
[2022-02-18 09:35] LABS: MANUAL DIFF FLAG NO
[2022-02-18 09:41] LABS: Basophils Percent Auto 0.5 % (0-2); Eosinophils Absolute Auto 0.1 X10*3/uL (0.0-0.4); Eosinophils Percent Auto 0.9 % (0-4); Hematocrit 37.2 % (37.0-47.0); Hemoglobin 12.5 g/dl (12.0-16.0); Imm Gran Abs Auto 0.03 X10*3/uL (0.00-0.03); Imm Gran Pct Auto 0.4 % (0.0-0.4); Lymphocytes Absolute Auto 2.4 X10*3/uL (1.2-4.9); Lymphocytes Percent Auto 29.6 % (20-40); Mean Corpuscular HGB Conc 33.6 g/dl (31.0-35.0); Mean Corpuscular Hemoglobin 26.3 pg (27.0-33.0); Mean Corpuscular Volume 78.3 fL (80.0-98.0); Monocytes Absolute Auto 0.4 X10*3/uL (0.1-1.2); Monocytes Percent Auto 5.4 % (2-11); Neutrophils Absolute Auto 5.1 x10*3/uL (2.0-8.3); Neutrophils Percent Auto 63.2 % (45-73); Platelet Count 247 X10*3/uL (160-400); Red Blood Count 4.75 X10*6/uL (4.20-5.50); Red Cell Distribution Width 12.8 % (11.0-16.0)
[2022-02-18 09:57] LABS: Anion Gap 12 (12-20); Blood Urea Nitrogen 9 mg/dL (9-16); Calcium 9.3 mg/dL (8.4-10.2); Carbon Dioxide 26 mmol/L (22-29); Chloride 105 mmol/L (96-108); Creatinine Clr Calc Pharmacy 102.7; Estimated Glomerular Filt Rate > 60; Glucose Random 125 mg/dL (60-115); Potassium 4.9 mmol/L (3.3-5.1); Sodium 138 mmol/L (135-145)
[2022-02-18 10:54] LABS: Appearance Urine CLEAR; Color Urine YELLOW; Glucose Urine UA NEG (NEG); Leukocyte Esterase Urine NEG (NEG); Nitrite Urine NEG (NEG); Specific Gravity - Urine >= 1.030 (1.005-1.025); UACC Culture Trigger NO; Urine Blood TRACE (NEG); Urine Ketones NEG (NEG); Urine Protein NEG (NEG-TRACE)
--- NOTE | 2022-02-18 10:57 | ECG_ITS ---
Test Reason : DIZZINESS Blood Pressure : / mmHG Vent. Rate : 071 BPM Atrial Rate : 071 BPM P-R Int : 164 ms QRS Dur : 080 ms QT Int : 374 ms P-R-T Axes : 063 039 020 degrees QTc Int : 406 ms Normal sinus rhythm Low voltage QRS Borderline ECG When compared with ECG of 24-JUN-2021 19:49, No significant change was found Referred By: Dunia Cota Electronically Signed By:Eze Phan
[2022-02-18 11:19] LABS: Alanine Aminotransferase 14 U/L (0-31); Albumin Level 4.3 g/dL (3.5-5.0); Alkaline Phosphatase 80 U/L (39-117); Aspartate Amino Transferase 16 U/L (5-31); Bilirubin Direct 0.2 mg/dL (0.0-0.5); Bilirubin Total 0.4 mg/dL (0.0-1.0); Lipase 19 U/L (8-78); Magnesium 2.1 mg/dL (1.6-2.6); Total Protein 7.3 g/dL (6.5-8.0)
[2022-02-18 11:31] LABS: OBS Int Ctl Valid YES; OBS1 NEGATIVE (NEGATIVE); UPreg QC Valid YES; Urine Pregnancy NEGATIVE (NEGATIVE)
[2022-02-18 11:35] VITALS: BP 115/70; PULSE 89; RESP 16; O2SAT 98
[2022-02-18] MEDS: 0.9 % Sodium Chloride 1,000 ML 999 ML IV (11:45)
[2022-02-18] MEDS: Magnesium Hydrox/Alum Hydrox 30 ML ORAL.SUSP PO (11:45)
[2022-02-18] MEDS: ondansetron HCL 4 MG/2 ML VIAL IVPUSH (11:45)
[2022-02-18] MEDS: Famotidine/PF 20 MG/2 ML VIAL IVPUSH (11:45)
--- NOTE | 2022-02-18 11:45 | ED.ABDPAIN ---
HPI - Abdominal Pain General Chief Complaint: Abdominal Pain Stated Complaint: abdominal pain Time Seen by Provider: 02/18/22 10:35 Source: patient Mode of arrival: ambulatory History of Present Illness HPI narrative: 36-year-old female with a past medical history of hemorrhoids, small-bowel motility disorder, chronic constipation, GERD, presenting to the ED complaining of worsening epigastric abdominal pain times a few days described as burning, worse with p.o. intake. Reports pain is constant, with associated nausea and dysuria. Reports dark/black BM yesterday and intermittent lightheadedness/dizziness described as feeling off balance, worse with position changes denies fever, chills, vomiting, diarrhea, bloody stool, hematuria. Denies taking anticoagulation MD elicited complaint: abdominal pain Related Data Home Medications Medication Instructions Recorded Confirmed methylcellulose (laxative) 500 mg 500 mg PO BID 07/13/20 01/23/22 tablet (Citrucel) Previous Rx's Medication Instructions Recorded hydrocortisone 2.5 % topical cream 1 appl MI BID PRN hemorrhoids #30 08/25/20 with perineal applicator grams (Proctosol HC) naproxen 500 mg tablet 500 mg PO BID PRN pain #20 tabs 09/15/20 simethicone 180 mg capsule 180 mg PO QID 30 days #120 caps 12/13/20 bisacodyl 5 mg tablet,delayed 10 mg PO BEDTIME 30 days #60 tabs 01/19/21 release (Dulcolax (bisacodyl)) acetaminophen 500 mg tablet 1,000 mg PO QID PRN fever or pain 06/24/21 (Tylenol Extra Strength) #14 tabs cyclobenzaprine 10 mg tablet 10 mg PO Q8H PRN Muscle spasm #14 06/24/21 tabs rabeprazole 20 mg tablet,delayed 20 mg PO BID 60 days #120 tabs 08/07/21 release (AcipHex) dicyclomine 10 mg capsule 10 mg PO .TIDAC #90 caps 09/19/21 linaclotide 72 mcg capsule 72 mcg PO QAM #30 caps 11/27/21 (Linzess) metoclopramide HCl 10 mg tablet 10 mg PO QIDACHS nausea and 11/27/21 (Reglan) vomiting #120 tabs jchyli-ncownlnj-makjzzj 1 cap PO QID 30 days #120 caps 01/30/22 24,000-76,000-120,000 unit capsule,delayed rel (Creon) sucralfate 100 mg/mL oral 10 ml PO BID #400 mL 02/13/22 suspension (Carafate) aluminum-mag hydroxide-simethicone 5 ml PO 5XD PRN dyspepsia #30 mL 02/18/22 200 mg-200 mg-20 mg/5 mL oral susp (Maalox Advanced) famotidine 20 mg tablet (Pepcid) 20 mg PO DAILY #14 tabs 02/18/22 lidocaine HCl 2 % mucosal solution 5 ml mucous membrane BID PRN pain 02/18/22 (Lidocaine Viscous) #100 mL Allergies Allergy/AdvReac Type Severity Reaction Status Date / Time No Known Allergies Allergy Verified 01/30/22 15:15 Review of Systems Review of Systems Constitutional: No Fever, No Chills, No Fatigue, + Malaise ENT/Mouth: No Ear Pain, No Nasal Congestion, No Sinus Pain, No Hoarseness, No sore throat, No Rhinorrhea, No Swallowing Difficulty Eyes: No Eye Pain, No Swelling, No Redness Cardiovascular: No Chest Pain, No SOB, No Dyspnea on Exertion, No Orthopnea, No Edema, No Palpitations Respiratory: No Cough, No Sputum, No Dyspnea Gastrointestinal: + Nausea, No Vomiting, No Diarrhea, No Constipation, +Abdominal pain, No Hematochezia, + Melena Genitourinary: No irregular bleeding, + Dysuria, No Urinary Frequency, No Hematuria, No Flank Pain, No Urinary Flow Changes, No Hesitancy Musculoskeletal: No joint pain, No Myalgias, No Joint Swelling Skin: No Skin Lesions, No rash Neuro: +generalized Weakness, No Loss of Consciousness, + Dizziness/lightheaded, No Headache Yes all other systems are reviewed and are negative [facility] Past Medical History Attestation statement: The following information was validated with the patient. Medical History Candidiasis of mouth and esophagus Dysphagia Hemorrhoids with complication No known health problems Odynophagia Surgical History History of esophagogastroduodenoscopy (EGD) History of tonsillectomy Hx of colonoscopy Family History Family History Father CVD (cardiovascular disease) Colon polyps Hypercholesteremia Diabetes Mother Thyroid condition CVD (cardiovascular disease) Fibromyalgia Heart problem Hypertension Sister HIV (human immunodeficiency virus infection) Brother No problems noted. Son No problems noted. Son No problems noted. Social History Social History Household Members: Children Alcohol intake: never Patient Tobacco Use Status: Never used Tobacco Use of substances other than those prescribed or required for medical reasons: No Advance Directives: No Advance Directives Information Provided: No Patient : No Physical Exam ED Vital Signs: Vital Signs - 24 hr 02/18/22 09:17 02/18/22 11:35 02/18/22 13:04 Temperature 97.9 F 98.6 F Pulse Rate 85 89 70 Respiratory Rate 16 16 18 Blood Pressure 124/76 115/70 107/60 Pulse Oximetry 98 98 100 Oxygen Delivery Method Room Air Room Air Room Air BMI result Body Mass Index 28.7 Const General: cooperative, healthy appearing, no acute distress, alert and awake; No acute distress Orientation/consciousness: patient oriented x3 Limitations: no limitations HENMT Head: Yes normal to inspection and Yes atraumatic Ears: hearing grossly normal bilaterally General nose exam: Normal external nose present Face and sinus: Yes normal facial exam Eyes General: appearance normal, both eyes and all related structures EOM: EOMs intact bilaterally Neck Neck: Yes normal visual inspection and Yes no meningeal signs Resp Effort & Inspection: normal respiratory effort and no respiratory distress Auscultation: clear to auscultation bilaterally Cardio Rate: regular rate Heart sounds: S1 normal heart sound present and S2 normal heart sound present GI Inspection: Yes normal to inspection Palpation (GI): Soft to palpation, Tenderness to palpation present (GI) in the epigastrum and in the LUQ, no guarding and not rigid Rectal Exam - Female: External hemorrhoid(s) present (Without active bleeding or thrombosis) General: Yes no CVA tenderness Back/Spine/Pelvis Back: no CVA tenderness Skin Rashes: no rashes Wounds: no wounds Neuro General: patient oriented x3, tone normal and no meningeal signs Gait exam (Neuro): Normal gait present Extrem General: Yes normal to inspection Course Course Course Narrative: -1152--H&H stable. Labs otherwise unremarkable. UA with trace blood/not infected -occult stool negative 1611--CT abdomen pelvis w con IMPRESSION: No cause GI bleeding seen. Mildly dilated fluid-filled small bowel in the left abdomen probably representing an ileus. Mild bilateral hydronephrosis and ureteral dilatation. This may be due to a well-distended bladder. ? Fleischner guidelines were followed. >> surgery, Dr. Quezada consulted -case discussed with Dr. Quezada who reviewed labs/imaging, patient does not appear obstructed. Patient is also scheduled for a laparoscopic cholecystectomy on 02/28/2022. He recommended follow-up with GI as long as she can tolerate p.o. Patient tolerated p.o. in the ED without nausea or vomiting or increase in pain. Discussed results with patient and family at bedside and needed follow-up with GI, she verbalized understanding & feels safe for discharge home at this time MDM - Abdominal Pain MDM Narrative Medical decision making narrative: 36-year-old female with a past medical history of hemorrhoids, small-bowel motility disorder, chronic constipation, GERD, presenting to the ED complaining of worsening epigastric abdominal pain x a few days with associated nausea, dysuria, & dark/black BM yesterday. On exam vital signs stable, NAD, nontoxic appearing, abdomen soft with epigastric/RUQ tenderness, no rebound or guarding. Concern for PUD vs GERD vs UBIG vs anemia. Low concern for ICH, appendicitis/diverticulitis Plan: Labs, UA, CT abdomen/pelvis, occult stool, symptomatic treatment, re-evaluate Differential Diagnosis Differential diagnosis: Likely abdominal pain, gastroenteritis, gastritis and peptic ulcer disease Medical Records Attestation: I reviewed the patient's medical records. Lab Data Attestation: I reviewed the patient's lab results. Result diagrams: 02/18/22 09:31 02/18/22 09:31 Labs: Lab Results 02/18/22 02/18/22 02/18/22 Range/Units 09: 09:31 10:44 WBC 8.0 (4.8-10.8) X10*3/uL RBC 4.75 (4.20-5.50) X10*6/uL Hgb 12.5 (12.0-16.0) g/dl Hct 37.2 (37.0-47.0) % MCV 78.3 L (80.0-98.0) fL MCH 26.3 L (27.0-33.0) pg MCHC 33.6 (31.0-35.0) g/dl RDW 12.8 (11.0-16.0) % Plt Count 247 (160-400) X10*3/uL MPV 10.0 (9.4-12.3) fL Immature Gran % (Auto) 0.4 (0.0-0.4) % Neut % (Auto) 63.2 (45-73) % Lymph % (Auto) 29.6 (20-40) % [place] % (Auto) 5.4 (2-11) % Eos % (Auto) 0.9 (0-4) % Baso % (Auto) 0.5 (0-2) % Lymph # (Auto) 2.4 (1.2-4.9) X10*3/uL [place] # (Auto) 0.4 (0.1-1.2) X10*3/uL Eos # (Auto) 0.1 (0.0-0.4) X10*3/uL Baso # (Auto) 0.0 (0.0-0.2) X10*3/uL Abs Immat Gran (auto) 0.03 (0.00-0.03) X10*3/uL Absolute Neuts (auto) 5.1 (2.0-8.3) x10*3/uL Absolute Nucleated RBC 0.000 (0.0-0.012) X10*3/uL Nucleated RBC % (auto) 0.0 (0.0-0.2) /100WBC Sodium 138 (135-145) mmol/L Potassium 4.9 (3.3-5.1) mmol/L Chloride 105 (96-108) mmol/L Carbon Dioxide 26 (22-29) mmol/L Anion Gap 12 (12-20) BUN 9 (9-16) mg/dL Creatinine 0.72 (0.5-1.4) mg/dL Estim Creat Clear Calc 102.7 Estimated GFR > 60 Random Glucose 125 H (60-115) mg/dL Calcium 9.3 (8.4-10.2) mg/dL Magnesium 2.1 (1.6-2.6) mg/dL Total Bilirubin 0.4 (0.0-1.0) mg/dL Direct Bilirubin 0.2 (0.0-0.5) mg/dL AST 16 (5-31) U/L ALT 14 (0-31) U/L Alkaline Phosphatase 80 (39-117) U/L Total Protein 7.3 (6.5-8.0) g/dL Albumin 4.3 (3.5-5.0) g/dL Lipase 19 (8-78) U/L Urine Color YELLOW Urine Appearance CLEAR Urine pH 6.0 (5.0-8.0) Ur Specific [place] >= 1.030 H (1.005-1.025) Urine Protein NEG (NEG-TRACE) MG/DL Urine Glucose (UA) NEG (NEG) MG/DL Urine Ketones NEG (NEG) MG/DL Urine Blood TRACE (NEG) Urine Nitrite NEG (NEG) Ur Leukocyte Esterase NEG (NEG) Urine RBC 0-2 (0) /HPF Urine WBC 0-2 (0-4) /HPF Ur Squamous Epith Cells 1+ /LPF Urine Bacteria NONE /LPF Urine Test (NEGATIVE) Stool Occult Blood (NEGATIVE) 02/18/22 02/18/22 Range/Units 11:05 11:05 WBC (4.8-10.8) X10*3/uL RBC (4.20-5.50) X10*6/uL Hgb (12.0-16.0) g/dl Hct (37.0-47.0) % MCV (80.0-98.0) fL MCH (27.0-33.0) pg MCHC (31.0-35.0) g/dl RDW (11.0-16.0) % Plt Count (160-400) X10*3/uL MPV (9.4-12.3) fL Immature Gran % (Auto) (0.0-0.4) % Neut % (Auto) (45-73) % Lymph % (Auto) (20-40) % [place] % (Auto) (2-11) % Eos % (Auto) (0-4) % Baso % (Auto) (0-2) % Lymph # (Auto) (1.2-4.9) X10*3/uL [place] # (Auto) (0.1-1.2) X10*3/uL Eos # (Auto) (0.0-0.4) X10*3/uL Baso # (Auto) (0.0-0.2) X10*3/uL Abs Immat Gran (auto) (0.00-0.03) X10*3/uL Absolute Neuts (auto) (2.0-8.3) x10*3/uL Absolute Nucleated RBC (0.0-0.012) X10*3/uL Nucleated RBC % (auto) (0.0-0.2) /100WBC Sodium (135-145) mmol/L Potassium (3.3-5.1) mmol/L Chloride (96-108) mmol/L Carbon Dioxide (22-29) mmol/L Anion Gap (12-20) BUN (9-16) mg/dL Creatinine (0.5-1.4) mg/dL Estim Creat Clear Calc Estimated GFR Random Glucose (60-115) mg/dL Calcium (8.4-10.2) mg/dL Magnesium (1.6-2.6) mg/dL Total Bilirubin (0.0-1.0) mg/dL Direct Bilirubin (0.0-0.5) mg/dL AST (5-31) U/L ALT (0-31) U/L Alkaline Phosphatase (39-117) U/L Total Protein (6.5-8.0) g/dL Albumin (3.5-5.0) g/dL Lipase (8-78) U/L Urine Color Urine Appearance Urine pH (5.0-8.0) Ur Specific [place] (1.005-1.025) Urine Protein (NEG-TRACE) MG/DL Urine Glucose (UA) (NEG) MG/DL Urine Ketones (NEG) MG/DL Urine Blood (NEG) Urine Nitrite (NEG) Ur Leukocyte Esterase (NEG) Urine RBC (0) /HPF Urine WBC (0-4) /HPF Ur Squamous Epith Cells /LPF Urine Bacteria /LPF Urine Test NEGATIVE (NEGATIVE) Stool Occult Blood NEGATIVE (NEGATIVE) Discharge Plan Discharge Clinical Impression: Ileus Patient Disposition: Home, Self-Care Instructions: Ileus (ED) Additional Instructions: Your blood work was reassuring. Her CT scan shows fluid filled small bowel likely representing an ileus, meaning her bowel is inflamed/mildly twisted. It is very important for you to follow-up with your GI doctor, call tomorrow to make an appointment. If pain persists/worsens, becomes unbearable, you have nausea/vomiting, you do not have a bowel movement in the next 48 hours, or are unable to eat or drink please return to the ED immediately Maalox and Pepcid will help with acid reduction. Viscous lidocaine will help take the pain in her lower stomach away. Avoid spicy foods, chocolate, caffeine Prescriptions: New famotidine [Pepcid] 20 mg tablet 20 mg PO DAILY Qty: 14 0RF alum-mag hydroxide-simeth [Maalox Advanced] 200-200-20 mg/5 mL suspension 5 ml PO 5XD PRN (Reason: dyspepsia) Qty: 30 0RF Rx Instructions: administer between meals and at bedtime lidocaine HCl [Lidocaine Viscous] 2 % solution 5 ml mucous membrane BID PRN (Reason: pain) Qty: 100 0RF No Action sucralfate [Carafate] 100 mg/mL suspension 10 ml PO BID Qty: 400 3RF naproxen 500 mg tablet 500 mg PO BID PRN (Reason: pain) Qty: 20 0RF cyclobenzaprine 10 mg tablet 10 mg PO Q8H PRN (Reason: Muscle spasm) Qty: 14 0RF acetaminophen [Tylenol Extra Strength] 500 mg tablet 1,000 mg PO QID PRN (Reason: fever or pain) Qty: 14 0RF Citrucel 500 mg tablet 500 mg PO BID hydrocortisone [Proctosol HC] 2.5 % cream with perineal applicator 1 appl MI BID PRN (Reason: hemorrhoids) Qty: 30 3RF simethicone 180 mg capsule 180 mg PO QID 30 Days Qty: 120 3RF Rx Instructions: after meals bisacodyl [Dulcolax (bisacodyl)] 5 mg tablet,delayed release (DR/EC) 10 mg PO BEDTIME 30 Days Qty: 60 6RF rabeprazole [AcipHex] 20 mg tablet,delayed release (DR/EC) 20 mg PO BID 60 Days Qty: 120 3RF Linzess 72 mcg capsule 72 mcg PO QAM Qty: 30 6RF metoclopramide HCl [Reglan] 10 mg tablet 10 mg PO QIDACHS Qty: 120 6RF Creon 24,000-76,000 -120,000 unit capsule,delayed release(DR/EC) 1 cap PO QID 30 Days Qty: 120 3RF Rx Instructions: administer with meals and/or snacks dicyclomine 10 mg capsule 10 mg PO .TIDAC Qty: 90 3RF Referrals: Clementina Ledezma, RAFAELC [Nurse Practitioner] - 3 days
[2022-02-18 11:51] LABS: RBC Urine 0-2 /HPF (0); Squamous Epithelial Cell Urine 1+ /LPF; WBC Urine 0-2 /HPF (0-4)
[2022-02-18 13:04] VITALS: BP 107/60; PULSE 70; RESP 18; TEMP 37; O2SAT 100
[2022-02-18] MEDS: Lidocaine HCl Viscous 2 % 15 ML SOLUTION MUCOUS MEM (13:26)
[2022-02-18] MEDS: Morphine Sulfate 2 MG/ML CARTRIDGE IVPUSH (13:26)
[2022-02-18] MEDS: iohexoL 300 MG/ML 100 ML INFUS..BTL IV (15:04)
== END 2022-02-18 17:12 | disposition home or self-care (01) ==
PROVIDERS: Physician Assistant; Emergency Provider Emergency Medicine
DX: K56.7 Ileus, unspecified (principal); K59.09 Other constipation
CPT/HCPCS: 36415; 74177; 80048; 80076; 81001; 81025; 82272; 83690; 83735; 85025; 93005; 96361; 96374; 96375; 99284; J2270; J2405; Q9967

== ENCOUNTER → 2022-02-26 13:14 | Outpatient (BNVA) | payer MEDICAID, SELFPAY | PROVIDERS: Visit Provider Nurse Practitioner | DX: K59.04 Chronic idiopathic constipation (principal); K21.9 Gastro-esophageal reflux disease without esophagitis; K59.9 Functional intestinal disorder, unspecified; K82.8 Other specified diseases of gallbladder; R10.10 Upper abdominal pain, unspecified | CPT/HCPCS: 99212 ==

== ENCOUNTER 2022-02-28 07:02 | Day surgery (SDC) | payer MEDICAID, SELFPAY ==
[2022-02-21 13:25] VITALS: BMI 28.1
--- NOTE | 2022-02-27 09:22 | HO.ANESPROP2 ---
Documented by User: Bee Jackson NP 02/27/22 09:23 HPI - Anesthesia Eval Consult details Narrative: 36yo F for Cholecystectomy Laparoscopic PMFSH Active Problems Active Problems: All Active Problems (Updated 02/21/22 @ 13:18 by Hermelinda Mann RN) Chronic idiopathic constipation (Acute) GERD (gastroesophageal reflux disease) (Acute) Odynophagia (Acute) Lower abdominal pain (Acute) Hemorrhoids (Acute) Uterine fibroid (Acute) Abdominal cramping (Acute) RUQ pain (Acute) Polyarthralgia (Acute) Neck pain (Acute) EN positive (Acute) Exercise intolerance (Acute) Early satiety (Acute) Palpitations (Acute) Rash (Acute) Biliary dyskinesia (Acute) Upper abdominal pain (Acute) Iron deficiency (Chronic) Acute viral syndrome (Acute) Small bowel motility disorder (Acute) Hemorrhoids with complication (Acute) Past Medical History Medical History Candidiasis of mouth and esophagus Dysphagia Family History Family History Father CVD (cardiovascular disease) Colon polyps Hypercholesteremia Diabetes Mother Thyroid condition CVD (cardiovascular disease) Fibromyalgia Heart problem Hypertension Sister HIV (human immunodeficiency virus infection) Brother No problems noted. Son No problems noted. Son No problems noted. Surgical History Surgical History History of esophagogastroduodenoscopy (EGD) History of tonsillectomy Hx of colonoscopy Hx of laparoscopy Social History Social History Household Members: Children Alcohol intake: never Patient Tobacco Use Status: Never used Tobacco Are you DNR?: No Advance Directives: No Advance Directives Information Provided: Yes Recently lost weight without trying: No Patient : No FDLMP: now Meds Allergies Allergy/AdvReac Type Severity Reaction Status Date / Time No Known Allergies Allergy Verified 02/26/22 13:27 Home Medications Medication Instructions Recorded Confirmed Last Taken Type fluvoxamine 50 mg tablet 50 mg PO BEDTIME 02/26/22 Unknown History gabapentin 100 mg capsule 100 mg PO TID 02/26/22 Unknown History Exam Exam Date and Time: February 27, 2022921 Height,Weight and Vital Signs: Height 5 ft 2 in Weight 69.853 kg Pertinent Lab Results Pertinent Lab Results: Laboratory Tests 02/18/22 02/18/22 09:31 09:31 WBC 8.0 Hgb 12.5 Hct 37.2 Plt Count 247 Sodium 138 Potassium 4.9 Chloride 105 Carbon Dioxide 26 BUN 9 Creatinine 0.72 Narrative Narrative: EKG 02/2022 Vent. Rate : 071 BPM ? ? Atrial Rate : 071 BPM ?? P-R Int : 164 ms? QRS Dur : 080 ms ? ? QT Int : 374 ms ? ? ? P-R-T Axes : 063 039 020 degrees ?? QTc Int : 406 ms ? Normal sinus rhythm Low voltage QRS Borderline ECG When compared with ECG of 24-JUN-2021 19:49, No significant change was found Assessment and Plan Assessment Anesthesia Assessment: Chart Reviewed Documented by User: Narcisa Chowdary MD 02/28/22 07:42 PMFSH Past Medical History Medical History Candidiasis of mouth and esophagus Dysphagia Family History Family History Father CVD (cardiovascular disease) Colon polyps Hypercholesteremia Diabetes Mother Thyroid condition CVD (cardiovascular disease) Fibromyalgia Heart problem Hypertension Sister HIV (human immunodeficiency virus infection) Brother No problems noted. Son No problems noted. Son No problems noted. Family history of problems with anesthesia: No Surgical History Surgical History History of esophagogastroduodenoscopy (EGD) History of tonsillectomy Hx of colonoscopy Hx of laparoscopy History of Problems with Anesthesia: No Social History Social History Household Members: Children Alcohol intake: never Patient Tobacco Use Status: Never used Tobacco Are you DNR?: No Advance Directives: No Advance Directives Information Provided: Yes Recently lost weight without trying: No Patient : No FDLMP: now Meds Allergies Allergy/AdvReac Type Severity Reaction Status Date / Time No Known Allergies Allergy Verified 02/26/22 13:27 Home Medications Medication Instructions Recorded Confirmed Last Taken Type fluvoxamine 50 mg tablet 50 mg PO BEDTIME 02/26/22 Unknown History gabapentin 100 mg capsule 100 mg PO TID 02/26/22 Unknown History Exam Airway Mallampati Class: II TM Dist: >3cm Neck ROM: Full Assessment and Plan Assessment Anesthesia Assessment: Anesthesia Plan Discussed Final Anesthetic Review Family History of Problems with Anesthesia: No History of Problems with Anesthesia: No NPO: No ASA Class: II Final Preanesthetic Review: No Changes in Pt Med Stat, Meds/Allgs Chart Reviewed, Consent Obtained/Reviewed and Anes Risks/Benef Reviewed Patient Risk: Intermediate Procedure Risk: Intermediate Anesthetic Plan Anesthetic Plan: GA Disposition: Standard PACU
[2022-02-28] VITALS (14 sets, daily range): BP systolic 118–125; BP diastolic 61–77; PULSE 72–93; RESP 16–18; TEMP 36.1–37.2; O2SAT 95–100
[2022-02-28 07:29] LABS: UPreg QC Valid YES; Urine Pregnancy NEGATIVE (NEGATIVE)
[2022-02-28] MEDS: Lactated Ringers 1,000 ML 100 ML IVCONT (07:39)
[2022-02-28] MEDS: Acetaminophen 325 MG TABLET 650 MG PO (07:45)
--- NOTE | 2022-02-28 08:18 | MHC.SHP ---
Pre-Procedural Eval Section A Date of Service: 02/28/22 The patient is an INPATIENT: No Changes since office visit: Yes Patient answered all questions; No Cold of Flu in the past 2 weeks, No New Medical Problems and No Changes in Medication The History & Physical has been completed within 30 days and I have reviewed it.: No Section B Chief Complaint: disease of gallbladder Details of Present Illness: 36-year-old female patient presenting with complaints of abdominal upper quadrant Radiating to the back. Pain seems to be associated with fatty food intake. Evaluation with ultrasound was negative for gallstones. HIDA scan obtained in 2020 revealed normal filling of the gallbladder but an abnormal ejection fraction suggestive of chronic cholecystitis / biliary dyskinesia. Patient presents today for laparoscopic possible open cholecystectomy. Relevant Family History (Specify if Yes): No Relevant Social History: None Present Medications: see Short Stay Collaborative assessment Medical History: No relevant PMH History of Previous Operations: No relevant previous surgery Allergies: Allergies Allergy/AdvReac Type Severity Reaction Status Date / Time No Known Allergies Allergy Verified 02/26/22 13:27 Review of Systems Sugical H&P ROS: Negative: Constitution, Cardiovascular, Respiratory, Neurological, Psychiatric, Hem-Onc, Allergic/Immunologic, Genitourinary, Musculoskeletal, Integumentary, Endocrine and Eyes/Ears/Nose/Throat and Yes, Specify: Gastrointestinal ( Abdominal pain as noted in HPI) Exam Surgical H&P Exam: Normal: HEENT, Normal: Heart, Normal: Lungs, Normal: Extremities, Normal: Abdomen, Normal: Skin and Normal: Neurological Plan Diagnosis/Plan: Unchanged I have reviewed the history and physical and performed a pertinent physical examination on my patient. No changes have occurred unless specified.
--- NOTE | 2022-02-28 09:53 | W.PM.OPN ---
Operative Note Operative Note Date of Service: 02/28/22 Narrative: Preoperative diagnosis: Bilary Dyskinesia Postoperative diagnosis: Same Procedure: Laparoscopic cholecystectomy Surgeon: Augustine Quezada MD Patented Hogshead Assembler: Elisabet Mejia PA-C, DASIA Guan Anesthesia: General endotracheal Indications for procedure: 36-year-old female patient presenting with complaints of abdominal pain in the right upper quadrant radiating to the back associated with fatty food intake. Ultrasound was negative for gallstones however HIDA scan was positive for biliary dyskinesia. Operative findings: Normal appearing gallbladder with no palpable gallstones Specimen: gallbladder Estimated blood loss: less than 1 mL Complications: none Procedure details: Patient was brought to the OR and placed in a supine position. After administering general anesthesia the patient's abdomen was prepped with ChloraPrep and draped in a sterile fashion. Local anesthesia consisting of 0.5% Sensorcaine without epinephrine was infiltrated in a periumbilical region. A 5 mm incision was made above the umbilicus in a transverse fashion. The Veress needle was then inserted while elevating abdominal cavity with towel clips. After positive drop test the abdomen was insufflated to a pressure of 15 mm of mercury. The Veress needle was then removed and a 5 mm trocar inserted. The camera was inserted in the abdomen explored. A 12 mm trocar was then placed in the epigastrium. Two 5 mm trocars placed in the right upper quadrant by the senior underwriting assistant. The patient was placed in reverse Trendelenburg positioning and rotated to the left. The gallbladder was grasped with the fundus and retracted cephalad by the senior underwriting assistant. The infundibulum was then grasped and retracted away from the liver bed, also by the senior underwriting assistant. The Dolphin dissected was then used by the surgeon to dissect the peritoneum off the infundibulum to reveal the junction with the cystic duct. Cystic artery was noted slightly medial and posterior to the cystic duct. After obtaining a critical view the cystic duct was doubly clipped and divided. The cystic artery was then doubly clipped and divided. The gallbladder was then dissected off the liver bed using electrocautery with an L hook. Hemostasis was assured all times using the electrocautery. When the gallbladder is completely dissected off the liver bed was placed in an Endo-Catch bag and brought out through the epigastric incision. The gallbladder remained intact with no spillage of bile or gallstones. The gallbladder was sent to pathology for further examination. The abdomen was then re-examined. The liver bed was irrigated and suctioned dry. No bleeding or bile leak could be identified. CO2 was then evacuated and all trocars removed. Fascia was closed at the epigastric incision using a [id number] 0 Polysorb suture. Skin was closed in all incisions using a subcuticular 4 0 Polysorb suture by both the surgeon and senior underwriting assistant. Sterile dressings consisting of Steri-Strips, 2 x 2 gauze, and Tegaderm were then applied. The patient tolerated the procedure well. Sponge instrument and needle counts reported as correct. The patient was transferred to PACU in stable condition.
== END 2022-02-28 13:17 | disposition home or self-care (01) ==
PROVIDERS: Nurse Practitioner; PCP Internal Medicine; Visit Provider Surgery
PROC: 0FT44ZZ Resection of Gallbladder, Percutaneous Endoscopic Approach (ICD-10-PCS; CPT 47562; principal; 2022-02-28 08:40)
DX: K81.1 Chronic cholecystitis (principal); Z86.19 Personal history of other infectious and parasitic diseases; Z79.899 Other long term (current) drug therapy
CPT/HCPCS: 47562; 81025; 88304; J1100; J1170; J1885; J2250; J2405; J3010

== ENCOUNTER 2022-03-07 11:59 | Emergency (ER) | payer MEDICAID, SELFPAY ==
[2022-03-07 12:23] VITALS: BP 129/74; PULSE 101; RESP 16; TEMP 36.3; O2SAT 98; BMI 28.1
== END 2022-03-07 17:07 | disposition left against medical advice (07) ==
PROVIDERS: Emergency Provider Emergency Medicine; PCP Internal Medicine
DX: R53.1 Weakness (principal); R53.83 Other fatigue; R42 Dizziness and giddiness; R11.0 Nausea; R06.02 Shortness of breath; Z90.49 Acquired absence of other specified parts of digestive tract
CPT/HCPCS: 99281; 99283

== ENCOUNTER 2022-03-08 11:52 | Outpatient (REF) | payer MEDICAID, SELFPAY ==
--- NOTE | 2022-03-08 11:58 | ECG_ITS ---
Test Reason : 53.83 Blood Pressure : / mmHG Vent. Rate : 072 BPM Atrial Rate : 072 BPM P-R Int : 162 ms QRS Dur : 080 ms QT Int : 382 ms P-R-T Axes : 065 049 025 degrees QTc Int : 418 ms Normal sinus rhythm Normal ECG When compared with ECG of 18-FEB-2022 11:18, No significant change was found Referred By: Augustine Quezada Electronically Signed By:SHANNAN LEES
[2022-03-08 12:37] LABS: Basophils Absolute Auto 0.1 X10*3/uL (0.0-0.2); Basophils Percent Auto 0.5 % (0-2); Eosinophils Absolute Auto 0.1 X10*3/uL (0.0-0.4); Eosinophils Percent Auto 1.3 % (0-4); Hematocrit 37.9 % (37.0-47.0); Hemoglobin 12.6 g/dl (12.0-16.0); Imm Gran Abs Auto 0.04 X10*3/uL (0.00-0.03); Imm Gran Pct Auto 0.4 % (0.0-0.4); Lymphocytes Percent Auto 20.2 % (20-40); MANUAL DIFF FLAG NO; Mean Corpuscular HGB Conc 33.2 g/dl (31.0-35.0); Mean Corpuscular Volume 78.1 fL (80.0-98.0); Mean Platelet Volume 9.9 fL (9.4-12.3); Monocytes Absolute Auto 0.7 X10*3/uL (0.1-1.2); Monocytes Percent Auto 6.6 % (2-11); Neutrophils Absolute Auto 7.1 x10*3/uL (2.0-8.3); Platelet Count 300 X10*3/uL (160-400); Red Blood Count 4.85 X10*6/uL (4.20-5.50); Red Cell Distribution Width 12.5 % (11.0-16.0)
[2022-03-08 13:42] LABS: Anion Gap 12 (12-20); Blood Urea Nitrogen 11 mg/dL (9-16); Calcium 9.6 mg/dL (8.4-10.2); Carbon Dioxide 28 mmol/L (22-29); Chloride 101 mmol/L (96-108); Estimated Glomerular Filt Rate > 60; Glucose Random 95 mg/dL (60-115); Potassium 4.6 mmol/L (3.3-5.1); Sodium 136 mmol/L (135-145)
== END 2022-03-08 11:53 | disposition home or self-care (01) ==
LOC: HO.LAB 11:52
PROVIDERS: PCP Internal Medicine; Visit Provider Surgery
DX: R53.83 Other fatigue (principal); R93.3 Abnormal findings on diagnostic imaging of other parts of digestive tract
CPT/HCPCS: 36415; 80048; 85025; 93005; 99212

== ENCOUNTER 2022-04-10 09:18 | Outpatient (REF) | payer MEDICAID, SELFPAY ==
--- NOTE | ~2022-04-10 | MR_ITS ---
EXAMINATION: MRI ABDOMEN AND PELVIS WITH AND WITHOUT CONTRAST: MR ENTEROGRAPHY CLINICAL INFORMATION: Abnormal findings on diagnostic imaging of other parts of digestive system, R93.3. COMPARISON: CT abdomen/pelvis 02/18/2022. TECHNIQUE: 1350 mL Volumen PO contrast prior to scanning. Then, multiple routine MRI sequences through the abdomen and pelvis were obtained on a high-field 1.5 Bernie MRI before and after the uneventful administration of 7 mL of Gadavist gadolinium-based IV contrast. FINDINGS: STOMACH: No significant wall thickening or hyperenhancement. SMALL BOWEL: No significant wall thickening or hyperenhancement. No disproportionate dilatation to suspect a stricture. No architectural distortion to suspect enteric fistula. The appendix is not definitely identified, although there are no regional inflammatory changes to suspect acute appendicitis. COLON: The distal colon is underdistended limiting assessment of wall thickening. Otherwise, there is no significant wall thickening or hyperenhancement noted. LUNG BASES: Lung bases are clear. LIVER: There is signal loss in the opposed phase dual echo images suggesting the presence of hepatic steatosis. GALL BLADDER AND BILIARY TREE: Cholecystectomy. No biliary ductal dilatation. SPLEEN: Normal. Normal size. No focal lesion. PANCREAS: Normal. ADRENAL GLANDS: Normal. No adrenal mass. KIDNEYS AND URETERS: Normal symmetric renal enhancement. No hydronephrosis or mass. LYMPHOVASCULAR STRUCTURES: Normal caliber aorta. IVC patent. No pathologically enlarged abdominal or retroperitoneal lymphadenopathy by CT size criteria PELVIC VISCERA: Anteroinferior myometrial scarring, likely sequela of prior , correlate with clinical history. The junctional zone is indistinct and thickened with a few small T2 bright cystic foci, raising the possibility of adenomyosis. The endometrium measures up to 0.8 cm in maximum thickness. OSSEOUS STRUCTURES: No acute or suspicious osseous abnormalities. MR/MR abdomen wo/w con IMPRESSION: No evidence of active inflammatory bowel changes. Hepatic steatosis. Findings suggestive of adenomyosis in the appropriate clinical context. Further evaluation could be obtained with a dedicated pelvic ultrasound. The endometrium measures 0.8 cm in thickness which is within normal limits for a premenopausal patient. Correlate with menstrual history.
== END 2022-04-10 09:19 | disposition home or self-care (01) ==
LOC: HO.MRI 09:18
PROVIDERS: Visit Provider Internal Medicine Gastroenterology
DX: R93.3 Abnormal findings on diagnostic imaging of other parts of digestive tract (principal)
CPT/HCPCS: 72197; 74183; A9585

== ENCOUNTER 2022-04-12 13:16 | Outpatient (REF) | payer MEDICAID, SELFPAY ==
[2022-04-12 14:35] LABS: C Reactive Protein 0.35 mg/dL (< or = 0.50)
[2022-04-12 14:49] LABS: Erythrocyte Sedimentation Rate 23 MM/HR (0-20)
== END 2022-04-12 13:17 | disposition home or self-care (01) ==
LOC: HO.LAB 13:16
PROVIDERS: PCP Internal Medicine; Visit Provider Nurse Practitioner Family
DX: M25.50 Pain in unspecified joint (principal); R76.8 Other specified abnormal immunological findings in serum
CPT/HCPCS: 36415; 85652; 86140; 99212

== ENCOUNTER → 2022-06-07 09:03 | Outpatient (BNVA) | payer MEDICAID, SELFPAY | PROVIDERS: PCP Internal Medicine; Visit Provider Internal Medicine Gastroenterology | DX: K59.04 Chronic idiopathic constipation (principal); K21.9 Gastro-esophageal reflux disease without esophagitis; R13.10 Dysphagia, unspecified; R68.81 Early satiety; K82.8 Other specified diseases of gallbladder; K64.8 Other hemorrhoids; E61.1 Iron deficiency; Z90.49 Acquired absence of other specified parts of digestive tract | CPT/HCPCS: 99212 ==

== ENCOUNTER 2022-07-03 14:06 | Outpatient (REF) | payer MEDICAID, SELFPAY ==
[2022-07-10 02:53] LABS: Fecal Fat Qualitative NORMAL (NORMAL)
[2022-07-11 16:36] LABS: Pancreatic Elastase-1 >500 mcg/g
== END 2022-07-03 14:07 | disposition home or self-care (01) ==
LOC: HO.LNP 14:06
PROVIDERS: Visit Provider Internal Medicine Gastroenterology
DX: R10.30 Lower abdominal pain, unspecified (principal)
CPT/HCPCS: 82656; 82705

== ENCOUNTER → 2022-07-05 10:19 | Outpatient (BNVA) | payer MEDICAID, SELFPAY | PROVIDERS: PCP Internal Medicine; Visit Provider Internal Medicine Gastroenterology | DX: K59.04 Chronic idiopathic constipation (principal); K21.9 Gastro-esophageal reflux disease without esophagitis; R93.3 Abnormal findings on diagnostic imaging of other parts of digestive tract; R13.10 Dysphagia, unspecified; K64.9 Unspecified hemorrhoids; R68.81 Early satiety; K82.8 Other specified diseases of gallbladder; E61.1 Iron deficiency; K64.8 Other hemorrhoids; R93.5 Abnormal findings on diagnostic imaging of other abdominal regions, including retroperitoneum; K52.9 Noninfective gastroenteritis and colitis, unspecified | CPT/HCPCS: 99212 ==

== ENCOUNTER 2022-07-09 10:06 | Outpatient (REF) | payer MEDICAID, SELFPAY ==
--- NOTE | ~2022-07-09 | FL_ITS ---
PROCEDURE: BARIUM SWALLOW AND UPPER GI CLINICAL INFORMATION: Gastroesophageal reflux disease without esophagitis. COMPARISON: Previous CT of the abdomen and pelvis February 2022, MRI April 2022 and small bowel follow-through October 2020. TECHNIQUE: Barium swallow and upper GI were performed using thin and thick barium and effervescent granules. Barium tablet was also administered. FLUOROSCOPY TIME: 0.9 minutes DAP: 5.9 cGy-cm2 SAVED FLUOROSCOPIC IMAGES: 40 FINDINGS: The swallowing mechanism is normal. No aspiration or penetration is seen. Barium tablet passed freely into the esophagus. No hernia or gastroesophageal reflux was seen. The stomach and duodenum are normal appearing. No fold thickening, mass, ulcer or stricture is seen. FL/FL upper GI w air w Ba Swallow IMPRESSION: Unremarkable exam.
== END 2022-07-09 10:07 | disposition home or self-care (01) ==
LOC: HO.XRAY 10:06
PROVIDERS: PCP Internal Medicine; Visit Provider Internal Medicine Gastroenterology
DX: K21.9 Gastro-esophageal reflux disease without esophagitis (principal); R13.10 Dysphagia, unspecified; R10.11 Right upper quadrant pain; R10.10 Upper abdominal pain, unspecified
CPT/HCPCS: 74246

== ENCOUNTER 2022-08-15 08:21 | Emergency (ER) | payer MEDICAID, SELFPAY ==
[2022-08-15 08:24] VITALS: BP 146/82; PULSE 99; RESP 17; TEMP 36.6; O2SAT 99; BMI 28.1
[2022-08-15 08:53] LABS: MANUAL DIFF FLAG NO
[2022-08-15 09:00] LABS: Basophils Percent Auto 0.6 % (0-2); Eosinophils Absolute Auto 0.1 X10*3/uL (0.0-0.4); Hematocrit 35.5 % (37.0-47.0); Hemoglobin 11.6 g/dl (12.0-16.0); Imm Gran Abs Auto 0.02 X10*3/uL (0.00-0.03); Imm Gran Pct Auto 0.3 % (0.0-0.4); Lymphocytes Absolute Auto 2.1 X10*3/uL (1.2-4.9); Lymphocytes Percent Auto 30.4 % (20-40); Mean Corpuscular HGB Conc 32.7 g/dl (31.0-35.0); Mean Corpuscular Hemoglobin 25.4 pg (27.0-33.0); Mean Corpuscular Volume 77.9 fL (80.0-98.0); Mean Platelet Volume 10.1 fL (9.4-12.3); Monocytes Absolute Auto 0.3 X10*3/uL (0.1-1.2); Monocytes Percent Auto 4.7 % (2-11); Neutrophils Absolute Auto 4.4 x10*3/uL (2.0-8.3); Platelet Count 279 X10*3/uL (160-400); Red Blood Count 4.56 X10*6/uL (4.20-5.50); Red Cell Distribution Width 12.7 % (11.0-16.0)
[2022-08-15 09:06] LABS: Appearance Urine Turbid; Glucose Urine UA Negative (Negative); Leukocyte Esterase Urine Trace (Negative); Specific Gravity - Urine 1.025 (1.005-1.025); UMIC TRIGGER UACC YES; Urine Blood Large (3+) (Negative); Urine Ketones Trace mg/dL (Negative); Urine Protein 100 (2+) mg/dL (Neg-Trace)
[2022-08-15 09:07] LABS: Color Urine RED
[2022-08-15 09:08] LABS: UPreg QC Valid YES; Urine Pregnancy NEGATIVE (NEGATIVE)
[2022-08-15 09:09] LABS: RBC Urine >20 /HPF (0-2); Squamous Epithelial Cell Urine 0-2 /HPF (0-2); WBC Urine 0-5 /HPF (0-5)
[2022-08-15 09:10] LABS: Bacteria Urine None Seen (None Seen); Hyaline Casts Urine 0-2 /LPF (0-2)
[2022-08-15 09:15] LABS: Anion Gap 14 (12-20); Blood Urea Nitrogen 7 mg/dL (9-16); Calcium 9.2 mg/dL (8.4-10.2); Carbon Dioxide 27 mmol/L (22-29); Chloride 104 mmol/L (96-108); Creatinine Clr Calc Pharmacy 100.4; Estimated Glomerular Filt Rate > 60; Glucose Random 159 mg/dL (60-115); Potassium 4.3 mmol/L (3.3-5.1); Sodium 141 mmol/L (135-145)
--- NOTE | 2022-08-15 09:25 | ED_ITS ---
HPI - General Adult General Chief complaint: General Medical Stated complaint: Menstrual Cycle X 1 month COVID Symptoms Time Seen by Provider: 08/15/22 09:20 Source: patient Mode of arrival: ambulatory Limitations: no limitations History of Present Illness HPI narrative: Patient is a 36 year old assigned female at with a history of uterine fibroids presenting to the emergency department today with 1 month of vaginal bleeding and feeling generally unwell over the last 6 days. Patient states that 5 months ago she had uterine fibroids removed but she has been bleeding for the last month consistently at 6 pads per day, less than a pad per hour. Patient states as well as the bleeding, she is feeling generally unwell. Patient denies any dizziness, lightheadedness, abdominal pain, nausea, vomiting, fever, chills, blurry vision, double vision, loss of vision, chest pain, difficulty breathing, shortness of breath, back pain, night sweats, pain with urination, increased urinary frequency, increased urinary urgency, blood in her stool, syncope or a near syncopal episode, recent trauma or falls, bowel incontinence, bladder incontinence, bowel retention, bladder retention, or any other complaints at this time. Severity: mild Severity scale (1-10): 3 Relieving factors: none Exacerbating factors: none Associated symptoms: denies other symptoms Treatments prior to arrival: none Related Data Home Medications Medication Instructions Recorded Confirmed fluvoxamine 50 mg tablet 50 mg PO BEDTIME 02/26/22 07/05/22 gabapentin 100 mg capsule 100 mg PO TID 02/26/22 07/05/22 clonazepam 0.5 mg tablet 0.5 mg PO DAILY 04/12/22 07/05/22 Previous Rx's Medication Instructions Recorded hydrocortisone 2.5 % topical cream 1 appl [place] BID PRN hemorrhoids #30 08/25/20 with perineal applicator grams (Proctosol HC) acetaminophen 500 mg tablet 1,000 mg PO QID PRN fever or pain 06/24/21 (Tylenol Extra Strength) #14 tabs dgybdz-cneekczs-uirsinh 1 cap PO TID 30 days #90 caps 07/05/22 10,000-32,000-42,000 unit capsule,delayed rel (Zenpep) sucralfate 100 mg/mL oral 10 ml PO QIDACHS 30 days #1,000 mL 08/09/22 suspension Allergies Allergy/AdvReac Type Severity Reaction Status Date / Time No Known Allergies Allergy Verified 07/09/22 15:21 Review of Systems Constitutional: Constitutional: Reports no additional constitutional complaints, Denies chills, Denies fever(s) and Denies night sweats Eyes: Eyes: Reports no additional eye complaints, Denies blurry vision, Denies change in vision, Denies diplopia, Denies eye discharge, Denies loss of vision and Denies eye pain ENT: Denies dizziness Cardiovascular: Cardiovascular: Reports no additional cardiovascular complaints, Denies chest pain, Denies lightheadedness, Denies Loss of Consciousness and Denies dyspnea Respiratory: Respiratory: Reports no additional respiratory complaints and Denies dyspnea Gastrointestinal: Gastrointestinal: Reports no additional gastrointestinal complaints, Denies abdominal pain, Denies melena, Denies hematochezia, Denies change in bowel habits and Denies change in stool character Genitourinary: Genitourinary: Denies hematuria, Denies urinary frequency, Denies dysuria, Denies urinary incontinence, Denies urinary hesitancy and Denies urinary urgency Comments: vaginal bleeding Musculoskeletal: Musculoskeletal: Reports no additional musculoskeletal complaints, Denies numbness and Denies tingling Neurologic: Denies dizziness, Denies loss of vision, Denies numbness and Denies tingling Psychiatric: Psychiatric: Reports no additional psychiatric complaints Endocrine: Endocrine: Reports no additional endocrine complaints Hematologic/Lymphatic: Hematologic/Lymphatic: Reports no additional hematologic/lymphatic complaints Allergic/Immunologic: Allergic/Immunologic: Reports no additional allergic/immunologic complaints [facility] Past Medical History Attestation statement: The following information was validated with the patient. Source: old records reviewed Medical History Candidiasis of mouth and esophagus Dysphagia Hemorrhoids with complication Odynophagia Surgical History History of esophagogastroduodenoscopy (EGD) History of laparoscopic cholecystectomy (02/28/22) History of tonsillectomy Hx of colonoscopy Hx of laparoscopy Family History Family History Father CVD (cardiovascular disease) Colon polyps Hypercholesteremia Diabetes Mother Thyroid condition CVD (cardiovascular disease) Fibromyalgia Heart problem Hypertension Sister HIV (human immunodeficiency virus infection) Brother No problems noted. Son No problems noted. Son No problems noted. Social History Social History Household Members: Children Alcohol intake: never Patient Tobacco Use Status: Never used Tobacco Advance Directives: No Physical Exam ED Vital Signs: Vital Signs - 24 hr 08/15/22 08:24 08/15/22 09:53 Temperature 98 F Pulse Rate 99 87 Respiratory Rate 17 19 Blood Pressure 146/82 H 114/76 Pulse Oximetry 99 98 Oxygen Delivery Method Room Air Room Air BMI result Body Mass Index 28.1 Const General: cooperative, no acute distress, alert and awake Nutritional Appearance: well nourished Orientation/consciousness: patient oriented x3 Limitations: no limitations HENMT Head: Yes normal to inspection and Yes atraumatic Ears: hearing grossly normal bilaterally and external ears normal General nose exam: Normal external nose present, no nasal discharge noted and no epistaxis Face and sinus: Yes normal facial exam, No abrasion and No laceration Mouth: Normal oral and palatal mucosa present, no drooling and no muffled voice Eyes General: appearance normal, both eyes and all related structures Periorbital: periorbital findings normal Eyelids: Yes eyelids normal Conjunctivae: conjunctivae normal Pupils: Equal, round and reactive pupils present EOM: EOMs intact bilaterally Neck Neck: Yes normal visual inspection, Yes full ROM and Yes no lymphadenopathy Chest Chest palpation & inspection: normal inspection of the chest Resp Effort & Inspection: normal respiratory effort and able to speak in complete sentences Auscultation: clear to auscultation bilaterally Cardio Rate: regular rate Rhythm: regular rhythm GI Inspection: Yes normal to inspection Palpation (GI): Soft to palpation, not firm, nontender and no guarding Other: patient deferred vaginal exam Neuro General: patient oriented x3 and moves all extremities Cranial nerves: Yes Equal, round and reactive pupils present Cognition (Neuro): normal cognition Motor exam (neuro): 5/5 motor strength present throughout Sensory Exam: Normal double simultaneous stimulation for sensation Coordination: [id number] test normal Extrem General: Yes normal to inspection, Yes full ROM and Yes capillary refill normal Psych Appearance: grossly normal Mental Status: mental status grossly normal Affect: normal affect Attitude: cooperative Thought process: Normal thought process present Thought content: Normal thought content present Insight: Good insight present (Psych) Course Course Course Narrative: Radha is a 36 yo female with PMHx of uterine fibroids, AUB, and Medical Decision Making Medical Decision Making MDM Narrative: Patient is a 36 year old assigned female at with a history of uterine fibroids presenting to the emergency department today with vaginal bleeding and feeling generally unwell. Patient's physical exam was unremarkable, the patient deferred the pelvic exam. Patient's blood work was unremarkable. Patient's urine showed no acute process. Patient's COVID-19 swab was positive. I explained my physical exam findings as well as all test results to the patient. I answered all questions asked by the patient. I stressed the importance of the patient david ing her medication as prescribed. I stressed the importance of the patient following up with her primary care provider and her OBGYN. I stressed the importance of the patient returning to the emergency department immediately if her symptoms were to worsen or if she were to develop any dizziness, shortness of breath, difficulty breathing, chest pain, blurry vision, loss of vision, nausea, vomiting, abdominal pain, fever, chills, back pain, or any other complaints. Patient verbalized agreement and understanding with this treatment plan and discharge. Differential Diagnoses: Differential diagnosis Differential Diagnosis: The differential diagnosis associated with the patient?s presentation includes: abnormal uterine bleeding, COVID-19 Lab Attestation: I reviewed the patient's lab results. Discharge Plan Discharge Clinical Impression: Abnormal uterine bleeding, COVID-19 Patient Disposition: Home, Self-Care Instructions: Dysfunctional Uterine Bleeding (ED), COVID-19 (Coronavirus Disease 2019) (ED) Additional Instructions: Follow up with your primary care provider and an OBGYN. Return to the emergency department immediately if your symptoms worsen or if you develop any dizziness, shortness of breath, difficulty breathing, chest pain, blurry vision, loss of vision, nausea, vomiting, abdominal pain, fever, chills, back pain, or any other complaints. Prescriptions: No Action sucralfate 100 mg/mL suspension 10 ml PO QIDACHS 30 Days Qty: 1000 3RF acetaminophen [Tylenol Extra Strength] 500 mg tablet 1,000 mg PO QID PRN (Reason: fever or pain) Qty: 14 0RF hydrocortisone [Proctosol HC] 2.5 % cream with perineal applicator 1 appl AK BID PRN (Reason: hemorrhoids) Qty: 30 3RF clonazepam 0.5 mg tablet 0.5 mg PO DAILY Zenpep 10,000-32,000 -42,000 unit capsule,delayed release(DR/EC) 1 cap PO TID 30 Days Qty: 90 2RF Rx Instructions: administer with meals and/or snacks gabapentin 100 mg capsule 100 mg PO TID fluvoxamine 50 mg tablet 50 mg PO BEDTIME Referrals: Jah Root MD [Primary Care Provider] - Stand Alone Forms: Work/School Release Interventions: ED Discharge Assessment Last Done: 08/15/22 09:53 Discharge Date/Time: 08/15/22 09:53 Print Language: Cook Islander
[2022-08-15 09:28] LABS: Influenza A PCR NEGATIVE (Negative); Influenza B PCR NEGATIVE (Negative); Resp Syncy Virus RNA Qual PCR NEGATIVE (Negative); SARS COV2 PCR INHOUSE POSITIVE (Negative)
[2022-08-15 09:53] VITALS: BP 114/76; PULSE 87; RESP 19; O2SAT 98
== END 2022-08-15 09:53 | disposition home or self-care (01) ==
PROVIDERS: Emergency Provider Emergency Medicine Emergency Medical Services; PCP Internal Medicine
DX: N93.8 Other specified abnormal uterine and vaginal bleeding (principal); U07.1 COVID-19; Z79.899 Other long term (current) drug therapy
CPT/HCPCS: 0241U; 36415; 80048; 81001; 81003; 81025; 85025; 99283

== ENCOUNTER 2022-08-16 13:53 | Outpatient (REF) | payer MEDICAID, SELFPAY ==
--- NOTE | ~2022-08-16 | US_ITS ---
EXAMINATION: US PELVIS CLINICAL INFORMATION: Abnormal finding of diagnostic imaging. COMPARISON: 04/10/2022 TECHNIQUE: Ultrasound of the pelvis is performed using both transabdominal and transvaginal transducers along with Doppler. Transvaginal imaging is performed due to inadequate visualization transabdominally. FINDINGS: Uterus: The uterus is anteverted and measures 11.3 x 5.1 x 7 cm. Nabothian cysts are seen at the cervix. The double wall endometrial thickness is 12 mm. The uterus is smooth in contour and has normal myometrial echogenicity. No visible fibroid. No junctional zone abnormality identified. Adnexa: Both ovaries are visualized. There is normal color flow to the adnexa. There is no ovarian torsion. There is no pelvic ascites or fluid collection. Right ovary measures 2.7 x 1.7 x 1.8 cm. Left ovary measures 3.7 x 3.5 x 2.2 cm. Septated cyst measuring 2.5 cm noted. US/US pelvic and transvaginal IMPRESSION: Septated left ovarian 2.5 cm cyst. This is almost certainly benign. Prominent endometrium may be associated with phase of cycle. No uterine mass.
== END 2022-08-16 13:54 | disposition home or self-care (01) ==
LOC: HO.US 13:53
PROVIDERS: Visit Provider Internal Medicine Gastroenterology
DX: R93.5 Abnormal findings on diagnostic imaging of other abdominal regions, including retroperitoneum (principal)
CPT/HCPCS: 76830; 76856

== ENCOUNTER → 2022-08-23 08:44 | Outpatient (BNVA) | payer MEDICAID, SELFPAY | PROVIDERS: PCP Internal Medicine; Referring Provider Internal Medicine; Visit Provider Internal Medicine Gastroenterology | DX: K82.8 Other specified diseases of gallbladder (principal); R10.30 Lower abdominal pain, unspecified; K58.1 Irritable bowel syndrome with constipation; K21.9 Gastro-esophageal reflux disease without esophagitis; R13.10 Dysphagia, unspecified; R68.81 Early satiety; Z90.49 Acquired absence of other specified parts of digestive tract | CPT/HCPCS: 99212 ==

== ENCOUNTER 2022-09-03 17:16 | Emergency (ER) | payer MEDICAID, SELFPAY ==
[2022-09-03 17:19] VITALS: BP 147/62; PULSE 93; RESP 20; TEMP 36.6; O2SAT 100; BMI 28.1
--- NOTE | 2022-09-03 17:22 | ED_ITS ---
HPI - General Adult General Chief complaint: Vaginal Bleeding <ONEL Herrera - Last Filed: 09/16/22 09:14> Stated complaint: Dizziness <ONEL Herrera - Last Filed: 09/16/22 09:14> Time Seen by Provider: 09/03/22 17:56 <ONEL Herrera - Last Filed: 09/16/22 09:14> Source: patient <Kayla Gomez NP - Last Filed: 09/04/22 00:29> Mode of arrival: ambulatory <Kayla Gomez NP - Last Filed: 09/04/22 00:29> Limitations: no limitations <Kayla Gomez NP - Last Filed: 09/04/22 00:29> History of Present Illness HPI narrative: 36-year-old female presents for abnormal vaginal bleeding, weakness, fatigue, pallor, and shortness of breath on exertion. She has been bleeding since July 15, and has had multiple appointments and visits to the emergency department for dysfunctional uterine bleeding. She does receive IV iron infusions. She presents today because she has lower abdominal pressure and is passing large clots. <Kayla Gomez NP - Last Filed: 09/04/22 00:29> Onset (ago): month(s) <Kayla Gomez NP - Last Filed: 09/04/22 00:29> Location: abdomen and genitals <Kayla Gomez NP - Last Filed: 09/04/22 00:29> Radiation: non-radiation <Kayla Gomez NP - Last Filed: 09/04/22 00:29> Severity: moderate <Kayla Gomez NP - Last Filed: 09/04/22 00:29> Severity scale (1-10): 6 <Kayla Gomez NP - Last Filed: 09/04/22 00:29> Quality: aching <Kayla Gomez NP - Last Filed: 09/04/22 00:29> Pain Consistency: constant <Kayla Gomez NP - Last Filed: 09/04/22 00:29> Relieving factors: none <Kayla Gomez NP - Last Filed: 09/04/22 00:29> Exacerbating factors: movement <Kayla Gomez NP - Last Filed: 09/04/22 00:29> Associated symptoms: chest pain, malaise, shortness of breath and weakness <Kayla Gomez NP - Last Filed: 09/04/22 00:29> Treatments prior to arrival: none <Kayla Gomez NP - Last Filed: 09/04/22 00:29> Related Data Home medications: Home Medications Medication Instructions Recorded Confirmed fluvoxamine 50 mg tablet 50 mg PO BEDTIME 02/26/22 07/05/22 gabapentin 100 mg capsule 100 mg PO TID 02/26/22 07/05/22 clonazepam 0.5 mg tablet 0.5 mg PO DAILY 04/12/22 07/05/22 Previous Rx's Medication Instructions Recorded hydrocortisone 2.5 % topical cream 1 appl NC BID PRN hemorrhoids #30 08/25/20 with perineal applicator grams (Proctosol HC) acetaminophen 500 mg tablet 1,000 mg PO QID PRN fever or pain 06/24/21 (Tylenol Extra Strength) #14 tabs fqljne-vkxqiveh-ctmeulh 1 cap PO TID 30 days #90 caps 07/05/22 10,000-32,000-42,000 unit capsule,delayed rel (Zenpep) sucralfate 100 mg/mL oral 10 ml PO QIDACHS 30 days #1,000 mL 08/09/22 suspension baclofen 10 mg tablet 5 mg PO BID 30 days #30 tabs 08/23/22 desogestrel 0.15 mg-ethinyl 1 tab PO DAILY #84 tabs 09/03/22 estradiol 0.03 mg tablet (Apri) <ONEL Herrera - Last Filed: 09/16/22 09:14> Allergies/adverse reactions: Allergies Allergy/AdvReac Type Severity Reaction Status Date / Time No Known Allergies Allergy Verified 08/23/22 08:49 <ONEL Herrera - Last Filed: 09/16/22 09:14> Review of Systems Review of Systems: Constitutional: No Fever, No Chills Cardiovascular: Positive intermittent Chest Pain, positive SOB Respiratory: No Cough, positive Dyspnea Gastrointestinal: Positive Nausea, No Vomiting, No Diarrhea, positive abdominal Pain Genitourinary: No Dysuria, No Hematuria Musculoskeletal: Known joint pain, No Myalgias, No Joint Swelling Skin: No Skin lacerations, No rash Neuro: Positive Weakness, No Numbness, No Paresthesias, No Loss of Conscious ness, positive Dizziness, No Headache <Kayla Gomez NP - Last Filed: 09/04/22 00:29> Yes all other systems are reviewed and are negative <Kayla Gomez NP - Last Filed: 09/04/22 00:29> [facility] Past Medical History Attestation statement: The following information was validated with the patient. <Kayla Gomez NP - Last Filed: 09/04/22 00:29> Source: old records reviewed <Kayla Gomez NP - Last Filed: 09/04/22 00:29> Medical History: Medical History Candidiasis of mouth and esophagus Dysphagia Hemorrhoids with complication Odynophagia <ONEL Herrera - Last Filed: 09/16/22 09:14> Surgical History: Surgical History History of esophagogastroduodenoscopy (EGD) History of laparoscopic cholecystectomy (02/28/22) History of tonsillectomy Hx of colonoscopy Hx of laparoscopy <ONEL Herrera - Last Filed: 09/16/22 09:14> Family History Family History: Family History Father CVD (cardiovascular disease) Colon polyps Hypercholesteremia Diabetes Mother Thyroid condition CVD (cardiovascular disease) Fibromyalgia Heart problem Hypertension Sister HIV (human immunodeficiency virus infection) Brother No problems noted. Son No problems noted. Son No problems noted. <ONEL Herrera - Last Filed: 09/16/22 09:14> Social History Social History: Social History Household Members: Children Alcohol intake: never Patient Tobacco Use Status: Never used Tobacco Smoked in Last 30 Days: No Use of substances other than those prescribed or required for medical reasons: No Advance Directives: No Advance Directives Information Provided: No Patient : No <ONEL Herrera - Last Filed: 09/16/22 09:14> Physical Exam ED Vital Signs: Vital Signs - 24 hr 09/03/22 17:19 09/03/22 19:20 09/03/22 21:44 Temperature 97.9 F Pulse Rate 93 80 76 Respiratory Rate 20 16 Blood Pressure 147/62 H 111/64 121/72 Pulse Oximetry 100 100 Oxygen Delivery Method Room Air Room Air 09/03/22 21:45 09/03/22 21:45 Temperature Pulse Rate 78 80 Respiratory Rate Blood Pressure 122/75 119/76 Pulse Oximetry Oxygen Delivery Method BMI result Body Mass Index 28.1 <ONEL Herrera - Last Filed: 09/16/22 09:14> Vital Signs - 24 hr 09/03/22 17:19 09/03/22 19:20 09/03/22 21:44 Temperature 97.9 F Pulse Rate 93 80 76 Respiratory Rate 20 16 Blood Pressure 147/62 H 111/64 121/72 Pulse Oximetry 100 100 Oxygen Delivery Method Room Air Room Air 09/03/22 21:45 09/03/22 21:45 Temperature Pulse Rate 78 80 Respiratory Rate Blood Pressure 122/75 119/76 Pulse Oximetry Oxygen Delivery Method BMI result Body Mass Index 28.1 <Kayla Gomez NP - Last Filed: 09/04/22 00:29> Appearance: Alert. Oriented X3. Mild distress. Pale. Eyes: Pupils equal, round and reactive to light. Sclera nonicteric. ENT: Pharynx normal. Dry mucous membranes. Neck: Normal inspection. Neck supple. CVS: Tachycardic heart rate and rhythm. Pulses normal. Respiratory: No respiratory distress. Breath sounds normal. Abdomen: Soft and nontender. Skin: Skin warm and dry. Normal skin color. Normal skin turgor. Extremities: Gait well balanced well coordinated. Neuro: No motor deficit. No sensory deficit. Cranial nerves 2-12 intact. <Kayla Gomez NP - Last Filed: 09/04/22 00:29> Course Course Course Narrative: RME: patient presents to the ED for vaginal bleeding since July and states she feels dizzy. patient states using mutliple pads per day. labs ordered. Vitals signs stable. <ONEL Herrera - Last Filed: 09/16/22 09:14> RME: patient presents to the ED for vaginal bleeding since July and states she feels dizzy. patient states using mutliple pads per day. labs ordered. Vitals signs stable. 36-year-old female presents for evaluation for abnormal vaginal bleeding. Has a history of anemia and receives IV iron treatments. Patient is mildly tachycardic, at 93. She appears pale, and states to be short of breath on minimal exertion, has intermittent chest pain, changes in vision, palpitations and weakness while ambulating. Patient states her last hemoglobin was 8, will order type and screen on to the lab panel that was ordered by provider in triage. Patient has had multiple pelvic exams in the past month, at this time she respectfully declines. Will order CT scan of abdomen and pelvis and PE study. 18:47 U preg negative, H&H 9.2/29.1 prior values on 08/15/[address] 11.6/35.5. CT PE study and abdomen pelvis negative for acute findings requiring emergent intervention. Patient symptoms have improved since fluid boluses. 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 Will give hormonal supplementation to attempt to reduce dysfunctional bleeding. She does understand that if symptoms worsen that she should present to the emergency department immediately. Patient verbalized understanding of and agrees to plan of care discharge home. Verbalized understanding of signs symptoms indicating need for emergent intervention. <Kayla Gomez NP - Last Filed: 09/04/22 00:29> Medications Administered Discontinued Medications Generic Name Dose Route Start Last Admin Trade Name Freq PRN Reason Stop Dose Admin Ferrous Sulfate 324 mg 09/03/22 20:52 09/03/22 21:20 Ferrous Sulfate 324 Mg Tablet. PO 09/03/22 20:53 324 mg ONCE ONE Administration Sodium Chloride 1,000 mls @ 999 mls/hr 09/03/22 18:45 09/03/22 20:38 Ns IVCONT 09/03/22 19:45 Infused .Q1H1M WALLY Infusion Sodium Chloride 1,000 mls @ 999 mls/hr 09/03/22 21:15 09/03/22 22:25 Ns IVCONT 09/03/22 22:15 Infused .Q1H1M WALLY Infusion Iohexol 100 ml 09/03/22 19:41 09/03/22 19:42 Iohexol 350 Mg/Ml 100 Ml Infus..Btl IV 09/03/22 19:42 85 ml ONCE ONE Administration <ONEL Herrera - Last Filed: 09/16/22 09:14> Medications Administered Discontinued Medications Generic Name Dose Route Start Last Admin Trade Name Arvind PRN Reason Stop Dose Admin Ferrous Sulfate 324 mg 09/03/22 20:52 09/03/22 21:20 Ferrous Sulfate 324 Mg Tablet.Dr PO 09/03/22 20:53 324 mg ONCE ONE Administration Sodium Chloride 1,000 mls @ 999 mls/hr 09/03/22 18:45 09/03/22 20:38 Ns IVCONT 09/03/22 19:45 Infused .Q1H1M WALLY Infusion Sodium Chloride 1,000 mls @ 999 mls/hr 09/03/22 21:15 09/03/22 22:25 Ns IVCONT 09/03/22 22:15 Infused .Q1H1M WALLY Infusion Iohexol 100 ml 09/03/22 19:41 09/03/22 19:42 Iohexol 350 Mg/Ml 100 Ml Infus..Btl IV 09/03/22 19:42 85 ml ONCE ONE Administration <Kayla Gomez NP - Last Filed: 09/04/22 00:29> Medical Decision Making Differential Diagnosis Differential Diagnoses: The differential diagnosis associated with the presentation includes <Kayla Gomez NP - Last Filed: 09/04/22 00:29> Ectopic, cystic hemorrhage, fibroid, PE <Kayla Gomez NP - Last Filed: 09/04/22 00:29> Admission/Observation Consideration of admission/observation: Escalation of care including admission/observation considered <Kayla Gomez NP - Last Filed: 09/04/22 00:29> If patient's hemoglobin is lower than 7, and patient continues to be symptomatic we will consider admission <Kayla Gomez NP - Last Filed: 00:29> Lab Data MDM Lab Attestation statement: I reviewed the patient's lab results. <Kayla Gomez NP - Last Filed: 09/04/22 00:29> Result Diagrams: 09/03/22 17:38 09/03/22 17:38 <ONEL Herrera - Last Filed: 09/16/22 09:14> Labs: Lab Results 09/03/22 09/03/22 09/03/22 Range/Units 17:38 17:38 17:38 WBC 9.0 (4.8-10.8) X10*3/uL RBC 3.63 L D (4.20-5.50) X10*6/uL Hgb 9.2 L D (12.0-16.0) g/dl Hct 29.1 L (37.0-47.0) % MCV 80.2 (80.0-98.0) fL MCH 25.3 L (27.0-33.0) pg MCHC 31.6 (31.0-35.0) g/dl RDW 13.8 (11.0-16.0) % Plt Count 313 (160-400) X10*3/uL MPV 10.0 (9.4-12.3) fL Immature Gran % (Auto) 0.3 (0.0-0.4) % Neut % (Auto) 61.0 (45-73) % Lymph % (Auto) 31.3 (20-40) % [place] % (Auto) 6.2 (2-11) % Eos % (Auto) 0.8 (0-4) % Baso % (Auto) 0.4 (0-2) % Lymph # (Auto) 2.8 (1.2-4.9) X10*3/uL [place] # (Auto) 0.6 (0.1-1.2) X10*3/uL Eos # (Auto) 0.1 (0.0-0.4) X10*3/uL Baso # (Auto) 0.0 (0.0-0.2) X10*3/uL Abs Immat Gran (auto) 0.03 (0.00-0.03) X10*3/uL Absolute Neuts (auto) 5.5 (2.0-8.3) x10*3/uL Absolute Nucleated RBC 0.000 (0.0-0.012) X10*3/uL Nucleated RBC % (auto) 0.0 (0.0-0.2) /100WBC PT 12.4 (10.0-13.1) SEC INR 1.1 (0.9-1.1) APTT 37.4 H (26.0-36.4) SEC Sodium 141 (135-145) mmol/L Potassium 3.9 (3.3-5.1) mmol/L Chloride 106 (96-108) mmol/L Carbon Dioxide 28 (22-29) mmol/L Anion Gap 11 L (12-20) BUN 11 (9-16) mg/dL Creatinine 0.70 (0.5-1.4) mg/dL Estim Creat Clear Calc 104.7 Estimated GFR > 60 Random Glucose 99 (60-115) mg/dL Calcium 9.5 (8.4-10.2) mg/dL Total Bilirubin 0.2 (0.0-1.0) mg/dL AST 13 (5-31) U/L ALT 11 (0-31) U/L Alkaline Phosphatase 84 (39-117) U/L Total Protein 7.0 (6.5-8.0) g/dL Albumin 4.2 (3.5-5.0) g/dL Beta HCG, Quant < 2 mIU/mL Urine Color Urine Appearance Urine pH (5.0-9.0) Ur Specific [place] (1.005-1.025) Urine Protein (Neg-Trace) mg/dL Urine Glucose (UA) (Negative) mg/dL Urine Ketones (Negative) mg/dL Urine Blood (Negative) Urine Nitrite (Negative) Ur Leukocyte Esterase (Negative) Urine RBC (0-2) /HPF Urine WBC (0-5) /HPF Ur Squamous Epith Cells (0-2) /HPF Urine Bacteria (None Seen) Hyaline Casts (0-2) /LPF Urine Test (NEGATIVE) Influenza Type A (PCR) (Negative) Influenza Type B (PCR) (Negative) RSV RNA Qual (PCR) (Negative) SARS-CoV-2 RNA (RT-PCR) (Negative) Blood Type Antibody Screen 09/03/22 09/03/22 09/03/22 Range/Units 17:42 17:42 20:17 WBC (4.8-10.8) X10*3/uL RBC (4.20-5.50) X10*6/uL Hgb (12.0-16.0) g/dl Hct (37.0-47.0) % MCV (80.0-98.0) fL MCH (27.0-33.0) pg MCHC (31.0-35.0) g/dl RDW (11.0-16.0) % Plt Count (160-400) X10*3/uL MPV (9.4-12.3) fL Immature Gran % (Auto) (0.0-0.4) % Neut % (Auto) (45-73) % Lymph % (Auto) (20-40) % [place] % (Auto) (2-11) % Eos % (Auto) (0-4) % Baso % (Auto) (0-2) % Lymph # (Auto) (1.2-4.9) X10*3/uL [place] # (Auto) (0.1-1.2) X10*3/uL Eos # (Auto) (0.0-0.4) X10*3/uL Baso # (Auto) (0.0-0.2) X10*3/uL Abs Immat Gran (auto) (0.00-0.03) X10*3/uL Absolute Neuts (auto) (2.0-8.3) x10*3/uL Absolute Nucleated RBC (0.0-0.012) X10*3/uL Nucleated RBC % (auto) (0.0-0.2) /100WBC PT (10.0-13.1) SEC INR (0.9-1.1) APTT (26.0-36.4) SEC Sodium (135-145) mmol/L Potassium (3.3-5.1) mmol/L Chloride (96-108) mmol/L Carbon Dioxide (22-29) mmol/L Anion Gap (12-20) BUN (9-16) mg/dL Creatinine (0.5-1.4) mg/dL Estim Creat Clear Calc Estimated GFR Random Glucose (60-115) mg/dL Calcium (8.4-10.2) mg/dL Total Bilirubin (0.0-1.0) mg/dL AST (5-31) U/L ALT (0-31) U/L Alkaline Phosphatase (39-117) U/L Total Protein (6.5-8.0) g/dL Albumin (3.5-5.0) g/dL Beta HCG, Quant mIU/mL Urine Color Yellow Urine Appearance Clear Urine pH 6.0 (5.0-9.0) Ur Specific [place] 1.025 (1.005-1.025) Urine Protein Negative (Neg-Trace) mg/dL Urine Glucose (UA) Negative (Negative) mg/dL Urine Ketones Negative (Negative) mg/dL Urine Blood Large (3+) H (Negative) Urine Nitrite Negative (Negative) Ur Leukocyte Esterase Negative (Negative) Urine RBC >20 H (0-2) /HPF Urine WBC 0-5 (0-5) /HPF Ur Squamous Epith Cells 0-2 (0-2) /HPF Urine Bacteria None Seen (None Seen) Hyaline Casts 0-2 (0-2) /LPF Urine Test NEGATIVE (NEGATIVE) Influenza Type A (PCR) NEGATIVE (Negative) Influenza Type B (PCR) NEGATIVE (Negative) RSV RNA Qual (PCR) NEGATIVE (Negative) SARS-CoV-2 RNA (RT-PCR) NEGATIVE (Negative) Blood Type Antibody Screen 09/03/22 Range/Units 20:27 WBC (4.8-10.8) X10*3/uL RBC (4.20-5.50) X10*6/uL Hgb (12.0-16.0) g/dl Hct (37.0-47.0) % MCV (80.0-98.0) fL MCH (27.0-33.0) pg MCHC (31.0-35.0) g/dl RDW (11.0-16.0) % Plt Count (160-400) X10*3/uL MPV (9.4-12.3) fL Immature Gran % (Auto) (0.0-0.4) % Neut % (Auto) (45-73) % Lymph % (Auto) (20-40) % [place] % (Auto) (2-11) % Eos % (Auto) (0-4) % Baso % (Auto) (0-2) % Lymph # (Auto) (1.2-4.9) X10*3/uL [place] # (Auto) (0.1-1.2) X10*3/uL Eos # (Auto) (0.0-0.4) X10*3/uL Baso # (Auto) (0.0-0.2) X10*3/uL Abs Immat Gran (auto) (0.00-0.03) X10*3/uL Absolute Neuts (auto) (2.0-8.3) x10*3/uL Absolute Nucleated RBC (0.0-0.012) X10*3/uL Nucleated RBC % (auto) (0.0-0.2) /100WBC PT (10.0-13.1) SEC INR (0.9-1.1) APTT (26.0-36.4) SEC Sodium (135-145) mmol/L Potassium (3.3-5.1) mmol/L Chloride (96-108) mmol/L Carbon Dioxide (22-29) mmol/L Anion Gap (12-20) BUN (9-16) mg/dL Creatinine (0.5-1.4) mg/dL Estim Creat Clear Calc Estimated GFR Random Glucose (60-115) mg/dL Calcium (8.4-10.2) mg/dL Total Bilirubin (0.0-1.0) mg/dL AST (5-31) U/L ALT (0-31) U/L Alkaline Phosphatase (39-117) U/L Total Protein (6.5-8.0) g/dL Albumin (3.5-5.0) g/dL Beta HCG, Quant mIU/mL Urine Color Urine Appearance Urine pH (5.0-9.0) Ur Specific [place] (1.005-1.025) Urine Protein (Neg-Trace) mg/dL Urine Glucose (UA) (Negative) mg/dL Urine Ketones (Negative) mg/dL Urine Blood (Negative) Urine Nitrite (Negative) Ur Leukocyte Esterase (Negative) Urine RBC (0-2) /HPF Urine WBC (0-5) /HPF Ur Squamous Epith Cells (0-2) /HPF Urine Bacteria (None Seen) Hyaline Casts (0-2) /LPF Urine Test (NEGATIVE) Influenza Type A (PCR) (Negative) Influenza Type B (PCR) (Negative) RSV RNA Qual (PCR) (Negative) SARS-CoV-2 RNA (RT-PCR) (Negative) Blood Type O Positive Antibody Screen NEGATIVE <ONEL Herrera - Last Filed: 09/16/22 09:14> Lab Results 09/03/22 09/03/22 09/03/22 Range/Units 17:38 17:38 17:38 WBC 9.0 (4.8-10.8) X10*3/uL RBC 3.63 L D (4.20-5.50) X10*6/uL Hgb 9.2 L D (12.0-16.0) g/dl Hct 29.1 L (37.0-47.0) % MCV 80.2 (80.0-98.0) fL MCH 25.3 L (27.0-33.0) pg MCHC 31.6 (31.0-35.0) g/dl RDW 13.8 (11.0-16.0) % Plt Count 313 (160-400) X10*3/uL MPV 10.0 (9.4-12.3) fL Immature Gran % (Auto) 0.3 (0.0-0.4) % Neut % (Auto) 61.0 (45-73) % Lymph % (Auto) 31.3 (20-40) % [place] % (Auto) 6.2 (2-11) % Eos % (Auto) 0.8 (0-4) % Baso % (Auto) 0.4 (0-2) % Lymph # (Auto) 2.8 (1.2-4.9) X10*3/uL [place] # (Auto) 0.6 (0.1-1.2) X10*3/uL Eos # (Auto) 0.1 (0.0-0.4) X10*3/uL Baso # (Auto) 0.0 (0.0-0.2) X10*3/uL Abs Immat Gran (auto) 0.03 (0.00-0.03) X10*3/uL Absolute Neuts (auto) 5.5 (2.0-8.3) x10*3/uL Absolute Nucleated RBC 0.000 (0.0-0.012) X10*3/uL Nucleated RBC % (auto) 0.0 (0.0-0.2) /100WBC PT 12.4 (10.0-13.1) SEC INR 1.1 (0.9-1.1) APTT 37.4 H (26.0-36.4) SEC Sodium 141 (135-145) mmol/L Potassium 3.9 (3.3-5.1) mmol/L Chloride 106 (96-108) mmol/L Carbon Dioxide 28 (22-29) mmol/L Anion Gap 11 L (12-20) BUN 11 (9-16) mg/dL Creatinine 0.70 (0.5-1.4) mg/dL Estim Creat Clear Calc 104.7 Estimated GFR > 60 Random Glucose 99 (60-115) mg/dL Calcium 9.5 (8.4-10.2) mg/dL Total Bilirubin 0.2 (0.0-1.0) mg/dL AST 13 (5-31) U/L ALT 11 (0-31) U/L Alkaline Phosphatase 84 (39-117) U/L Total Protein 7.0 (6.5-8.0) g/dL Albumin 4.2 (3.5-5.0) g/dL Beta HCG, Quant < 2 mIU/mL Urine Color Urine Appearance Urine pH (5.0-9.0) Ur Specific [place] (1.005-1.025) Urine Protein (Neg-Trace) mg/dL Urine Glucose (UA) (Negative) mg/dL Urine Ketones (Negative) mg/dL Urine Blood (Negative) Urine Nitrite (Negative) Ur Leukocyte Esterase (Negative) Urine RBC (0-2) /HPF Urine WBC (0-5) /HPF Ur Squamous Epith Cells (0-2) /HPF Urine Bacteria (None Seen) Hyaline Casts (0-2) /LPF Urine Test (NEGATIVE) Influenza Type A (PCR) (Negative) Influenza Type B (PCR) (Negative) RSV RNA Qual (PCR) (Negative) SARS-CoV-2 RNA (RT-PCR) (Negative) Blood Type Antibody Screen 09/03/22 09/03/22 09/03/22 Range/Units 17:42 17:42 20:17 WBC (4.8-10.8) X10*3/uL RBC (4.20-5.50) X10*6/uL Hgb (12.0-16.0) g/dl Hct (37.0-47.0) % MCV (80.0-98.0) fL MCH (27.0-33.0) pg MCHC (31.0-35.0) g/dl RDW (11.0-16.0) % Plt Count (160-400) X10*3/uL MPV (9.4-12.3) fL Immature Gran % (Auto) (0.0-0.4) % Neut % (Auto) (45-73) % Lymph % (Auto) (20-40) % [place] % (Auto) (2-11) % Eos % (Auto) (0-4) % Baso % (Auto) (0-2) % Lymph # (Auto) (1.2-4.9) X10*3/uL [place] # (Auto) (0.1-1.2) X10*3/uL Eos # (Auto) (0.0-0.4) X10*3/uL Baso # (Auto) (0.0-0.2) X10*3/uL Abs Immat Gran (auto) (0.00-0.03) X10*3/uL Absolute Neuts (auto) (2.0-8.3) x10*3/uL Absolute Nucleated RBC (0.0-0.012) X10*3/uL Nucleated RBC % (auto) (0.0-0.2) /100WBC PT (10.0-13.1) SEC INR (0.9-1.1) APTT (26.0-36.4) SEC Sodium (135-145) mmol/L Potassium (3.3-5.1) mmol/L Chloride (96-108) mmol/L Carbon Dioxide (22-29) mmol/L Anion Gap (12-20) BUN (9-16) mg/dL Creatinine (0.5-1.4) mg/dL Estim Creat Clear Calc Estimated GFR Random Glucose (60-115) mg/dL Calcium (8.4-10.2) mg/dL Total Bilirubin (0.0-1.0) mg/dL AST (5-31) U/L ALT (0-31) U/L Alkaline Phosphatase (39-117) U/L Total Protein (6.5-8.0) g/dL Albumin (3.5-5.0) g/dL Beta HCG, Quant mIU/mL Urine Color Yellow Urine Appearance Clear Urine pH 6.0 (5.0-9.0) Ur Specific [place] 1.025 (1.005-1.025) Urine Protein Negative (Neg-Trace) mg/dL Urine Glucose (UA) Negative (Negative) mg/dL Urine Ketones Negative (Negative) mg/dL Urine Blood Large (3+) H (Negative) Urine Nitrite Negative (Negative) Ur Leukocyte Esterase Negative (Negative) Urine RBC >20 H (0-2) /HPF Urine WBC 0-5 (0-5) /HPF Ur Squamous Epith Cells 0-2 (0-2) /HPF Urine Bacteria None Seen (None Seen) Hyaline Casts 0-2 (0-2) /LPF Urine Test NEGATIVE (NEGATIVE) Influenza Type A (PCR) NEGATIVE (Negative) Influenza Type B (PCR) NEGATIVE (Negative) RSV RNA Qual (PCR) NEGATIVE (Negative) SARS-CoV-2 RNA (RT-PCR) NEGATIVE (Negative) Blood Type Antibody Screen 09/03/22 Range/Units 20:27 WBC (4.8-10.8) X10*3/uL RBC (4.20-5.50) X10*6/uL Hgb (12.0-16.0) g/dl Hct (37.0-47.0) % MCV (80.0-98.0) fL MCH (27.0-33.0) pg MCHC (31.0-35.0) g/dl RDW (11.0-16.0) % Plt Count (160-400) X10*3/uL MPV (9.4-12.3) fL Immature Gran % (Auto) (0.0-0.4) % Neut % (Auto) (45-73) % Lymph % (Auto) (20-40) % [place] % (Auto) (2-11) % Eos % (Auto) (0-4) % Baso % (Auto) (0-2) % Lymph # (Auto) (1.2-4.9) X10*3/uL [place] # (Auto) (0.1-1.2) X10*3/uL Eos # (Auto) (0.0-0.4) X10*3/uL Baso # (Auto) (0.0-0.2) X10*3/uL Abs Immat Gran (auto) (0.00-0.03) X10*3/uL Absolute Neuts (auto) (2.0-8.3) x10*3/uL Absolute Nucleated RBC (0.0-0.012) X10*3/uL Nucleated RBC % (auto) (0.0-0.2) /100WBC PT (10.0-13.1) SEC INR (0.9-1.1) APTT (26.0-36.4) SEC Sodium (135-145) mmol/L Potassium (3.3-5.1) mmol/L Chloride (96-108) mmol/L Carbon Dioxide (22-29) mmol/L Anion Gap (12-20) BUN (9-16) mg/dL Creatinine (0.5-1.4) mg/dL Estim Creat Clear Calc Estimated GFR Random Glucose (60-115) mg/dL Calcium (8.4-10.2) mg/dL Total Bilirubin (0.0-1.0) mg/dL AST (5-31) U/L ALT (0-31) U/L Alkaline Phosphatase (39-117) U/L Total Protein (6.5-8.0) g/dL Albumin (3.5-5.0) g/dL Beta HCG, Quant mIU/mL Urine Color Urine Appearance Urine pH (5.0-9.0) Ur Specific [place] (1.005-1.025) Urine Protein (Neg-Trace) mg/dL Urine Glucose (UA) (Negative) mg/dL Urine Ketones (Negative) mg/dL Urine Blood (Negative) Urine Nitrite (Negative) Ur Leukocyte Esterase (Negative) Urine RBC (0-2) /HPF Urine WBC (0-5) /HPF Ur Squamous Epith Cells (0-2) /HPF Urine Bacteria (None Seen) Hyaline Casts (0-2) /LPF Urine Test (NEGATIVE) Influenza Type A (PCR) (Negative) Influenza Type B (PCR) (Negative) RSV RNA Qual (PCR) (Negative) SARS-CoV-2 RNA (RT-PCR) (Negative) Blood Type O Positive Antibody Screen NEGATIVE <Kayla Gomez NP - Last Filed: 09/04/22 00:29> Independent Interpretation I performed an independent interpretation of an: Ultrasound and CT Scan <Kayla Gomez NP - Last Filed: 09/04/22 00:29> Radiology Impression Discussion of test interpretation with radiology: I have reviewed the radiologist's reading. <Kayla Gomez NP - Last Filed: 09/04/22 00:29> Radiologist Impression: EXAMINATION: CT ANGIOGRAM OF THE CHEST WITH AND WITHOUT CONTRAST (CT PULMONARY ANGIOGRAM FOR PE) CT ABDOMEN AND PELVIS WITH CONTRAST CLINICAL INFORMATION: Shortness of breath with tachycardia and abdominal pain COMPARISON: CT abdomen and pelvis 02/18/2022? TECHNIQUE: Prior to contrast administration, noncontrast localization images were obtained. ? Subsequently, multidetector volumetric imaging was performed from the thoracic inlet to the pubic symphysis following the administration of 85 mL Omnipaque 350 intravenous contrast. This was followed by multidetector acquisition of the abdomen and pelvis. No contrast reaction reported Sagittal, coronal, and MIP oblique sagittal reformatted images were obtained on the CT workstation, uploaded to PACS, and reviewed. This CT examination was performed using dose optimization techniques as appropriate, variously including the following: *Automated exposure control *Adjustment of mA and/or kV according to patient size (this includes techniques or standardized protocols for targeted exams where dose is matched to indication/reason for exam; i.e. extremities or head) *Use of iterative reconstruction technique Total exam dose-length product 794 mGy-cm FINDINGS: CHEST: Quality of study/contrast bolus: Satisfactory. Pulmonary arteries: No central or segmental pulmonary emboli.? Thoracic aorta: No aneurysm or dissection. Lungs: No airspace consolidation. No suspicious appearing pulmonary nodules. Airways:Central through segmental airways are clear. Pleura and pericardium: No pleural or pericardial effusions. Heart: No cardiomegaly. No coronary artery vascular calcifications appreciated. Lymph nodes: No mediastinal, hilar, or axillary lymphadenopathy. Chest Wall: No chest wall mass.? ABDOMEN/PELVIS: Liver: Normal size and attenuation. No liver lesions. Gallbladder and bile ducts:Status post cholecystectomy. No biliary ductal dilation. Pancreas: No pancreatic lesion, ductal dilation, or peripancreatic inflammatory change.? Spleen: Normal size. No splenic lesion.? Adrenal Glands: Unremarkable.? Kidneys and Ureters: Symmetric nephrograms. No hydronephrosis.? No renal cyst or mass identified. Vasculature:No abdominal aortic aneurysm. Lymph nodes:No retroperitoneal or mesenteric lymphadenopathy. Gastrointestinal Tract: No dilated bowel loops or bowel wall thickening. The appendix is not seen. There is no pericecal inflammation to suggest acute appendicitis. Peritoneum:No ascites or intra-abdominal free air. Abdominal wall:No hernia. Bladder: Unremarkable.? Pelvic Viscera: Gynecologic structures are grossly unremarkable, limited assessment. Trace free pelvic fluid.? Bones: No acute fracture or suspicious osseous lesion. Mild degenerative disc disease in the lower thoracic spine. CT/CT angio chest PE protocol IMPRESSION: 1.? No evidence of pulmonary embolus. 2.? No airspace consolidation or effusions. 3.? No acute intra-abdominal process identified. 4.? Status post cholecystectomy VTE: negative <Kayla Gomez NP - Last Filed: 09/04/22 00:29> External Record Review External record reviewed: Inpatient record and Prior outpatient labs <Kayla Gomez NP - Last Filed: 09/04/22 00:29> A pelvic ultrasound, MRI of pelvis <Kayla Gomez NP - Last Filed: 09/04/22 00:29> Prescription Management I considered prescription management with: Other ( control) <Kayla Gomez NP - Last Filed: 09/04/22 00:29> Discharge Plan Discharge Clinical Impression: Dysfunctional uterine bleeding <ONEL Herrera - Last Filed: 09/16/22 09:14> Patient Disposition: Home, Self-Care <ONEL Herrera Last Filed: 09/16/22 09:14> Instructions: Dysfunctional Uterine Bleeding (ED) <ONEL Herrera - Last Filed: 09/16/22 09:14> Additional Instructions: You were evaluated for dysfunctional uterine bleeding. Your CT scan of abdomen pelvis is negative for acute findings. CT scan of chest negative for pulmonary embolism. Your H&H was 9.2/29.1. You did not meet the criteria for blood transfusion. Please continue with your IV iron infusions. 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 Please keep the appointment as scheduled Saturday. If bleeding worsens please return to the emergency department. I have prescribed you Apri. This is control tablets, please take 1 tablet every 12 hours for the 1st 7 days, and then 1 tablet daily. Thank you for choosing this emergency department for evaluation. Please follow-up with primary care physician as needed. Return to the emergency department for any new, concerning, or worsening symptoms. <ONEL Herrera - Last Filed: 09/16/22 09:14> Prescriptions: New desogestrel-ethinyl estradiol [Apri] 0.15-0.03 mg tablet 1 tab PO DAILY Qty: 84 0RF Rx Instructions: Take 1 tablet every 12 hours for the 1st 7 days, then 1 tablet daily. No Action sucralfate 100 mg/mL suspension 10 ml PO QIDACHS 30 Days Qty: 1000 3RF acetaminophen [Tylenol Extra Strength] 500 mg tablet 1,000 mg PO QID PRN (Reason: fever or pain) Qty: 14 0RF hydrocortisone [Proctosol HC] 2.5 % cream with perineal applicator 1 appl NC BID PRN (Reason: hemorrhoids) Qty: 30 3RF clonazepam 0.5 mg tablet 0.5 mg PO DAILY Zenpep 10,000-32,000 -42,000 unit capsule,delayed release(DR/EC) 1 cap PO TID 30 Days Qty: 90 2RF Rx Instructions: administer with meals and/or snacks baclofen 10 mg tablet 5 mg PO BID 30 Days Qty: 30 3RF gabapentin 100 mg capsule 100 mg PO TID fluvoxamine 50 mg tablet 50 mg PO BEDTIME <ONEL Herrera - Last Filed: 09/16/22 09:14> Interventions: ED Discharge Assessment Last Done: 09/03/22 22:28 <ONEL Herrera - Last Filed: 09/16/22 09:14> Discharge Date/Time: 09/04/22 04:24 <ONEL Herrera - Last Filed: 09/16/22 09:14>
[2022-09-03 17:53] LABS: Appearance Urine Clear; Color Urine Yellow; Glucose Urine UA Negative (Negative); Leukocyte Esterase Urine Negative (Negative); Nitrite Urine Negative (Negative); Specific Gravity - Urine 1.025 (1.005-1.025); UMIC TRIGGER UACC YES; Urine Blood Large (3+) (Negative); Urine Ketones Negative (Negative); Urine Protein Negative (Neg-Trace)
[2022-09-03 17:54] LABS: UPreg QC Valid YES; Urine Pregnancy NEGATIVE (NEGATIVE)
[2022-09-03 17:55] LABS: MANUAL DIFF FLAG NO
[2022-09-03 17:58] LABS: Basophils Percent Auto 0.4 % (0-2); Eosinophils Absolute Auto 0.1 X10*3/uL (0.0-0.4); Eosinophils Percent Auto 0.8 % (0-4); Hematocrit 29.1 % (37.0-47.0); Hemoglobin 9.2 g/dl (12.0-16.0); Imm Gran Abs Auto 0.03 X10*3/uL (0.00-0.03); Imm Gran Pct Auto 0.3 % (0.0-0.4); Lymphocytes Absolute Auto 2.8 X10*3/uL (1.2-4.9); Lymphocytes Percent Auto 31.3 % (20-40); Mean Corpuscular HGB Conc 31.6 g/dl (31.0-35.0); Mean Corpuscular Hemoglobin 25.3 pg (27.0-33.0); Mean Corpuscular Volume 80.2 fL (80.0-98.0); Monocytes Absolute Auto 0.6 X10*3/uL (0.1-1.2); Monocytes Percent Auto 6.2 % (2-11); Neutrophils Absolute Auto 5.5 x10*3/uL (2.0-8.3); Platelet Count 313 X10*3/uL (160-400); Red Blood Count 3.63 X10*6/uL (4.20-5.50); Red Cell Distribution Width 13.8 % (11.0-16.0)
[2022-09-03 17:58] LABS: Bacteria Urine None Seen (None Seen); Hyaline Casts Urine 0-2 /LPF (0-2); RBC Urine >20 /HPF (0-2); Squamous Epithelial Cell Urine 0-2 /HPF (0-2); WBC Urine 0-5 /HPF (0-5)
[2022-09-03 18:06] LABS: INTERNATIONAL NORM RATIO 1.1 (0.9-1.1); Prothrombin Time 12.4 SEC (10.0-13.1)
[2022-09-03 18:09] LABS: Partial Thromboplastin Time 37.4 SEC (26.0-36.4)
[2022-09-03 18:31] LABS: Alanine Aminotransferase 11 U/L (0-31); Albumin Level 4.2 g/dL (3.5-5.0); Alkaline Phosphatase 84 U/L (39-117); Anion Gap 11 (12-20); Aspartate Amino Transferase 13 U/L (5-31); Bilirubin Total 0.2 mg/dL (0.0-1.0); Blood Urea Nitrogen 11 mg/dL (9-16); Calcium 9.5 mg/dL (8.4-10.2); Carbon Dioxide 28 mmol/L (22-29); Chloride 106 mmol/L (96-108); Creatinine Clr Calc Pharmacy 104.7; Estimated Glomerular Filt Rate > 60; Glucose Random 99 mg/dL (60-115); HCG Quantitative < 2 mIU/mL; Potassium 3.9 mmol/L (3.3-5.1); Sodium 141 mmol/L (135-145)
--- NOTE | 2022-09-03 18:45 | ECG_ITS ---
Test Reason : ANEMIA Blood Pressure : / mmHG Vent. Rate : 084 BPM Atrial Rate : 084 BPM P-R Int : 162 ms QRS Dur : 082 ms QT Int : 364 ms P-R-T Axes : 062 045 030 degrees QTc Int : 430 ms Normal sinus rhythm Normal ECG When compared with ECG of 08-MAR-2022 11:57, No significant change was found Referred By: Kayla Gomez Electronically Signed By:Eze Phan
--- NOTE | 2022-09-03 19:02 | PC.NURSE ---
This ticket writer assumed care of this PT at 1900.
[2022-09-03 19:20] VITALS: BP 111/64; PULSE 80; RESP 16; O2SAT 100
--- NOTE | 2022-09-03 19:45 | PC.NURSE ---
PT a&ox4, denies any pain, reports cramping/discomfort to lower abd. IV established, meds given as documented.
[2022-09-03 20:59] LABS: Influenza A PCR NEGATIVE (Negative); Influenza B PCR NEGATIVE (Negative); Resp Syncy Virus RNA Qual PCR NEGATIVE (Negative); SARS COV2 PCR INHOUSE NEGATIVE (Negative)
[2022-09-03] MEDS: 0.9 % Sodium Chloride 1,000 ML 999 ML IVCONT (21:20)
[2022-09-03 21:44] VITALS: BP 121/72; PULSE 76
[2022-09-03 21:45] VITALS: BP 119/76; BP 122/75; PULSE 78; PULSE 80
== END 2022-09-04 04:24 | disposition home or self-care (01) ==
PROVIDERS: Nurse Practitioner Family; Physician Assistant; Emergency Provider Internal Medicine; PCP Internal Medicine
DX: N93.8 Other specified abnormal uterine and vaginal bleeding (principal); R10.30 Lower abdominal pain, unspecified; R00.0 Tachycardia, unspecified; R42 Dizziness and giddiness; R06.02 Shortness of breath; Z20.828 Contact with and (suspected) exposure to other viral communicable diseases
CPT/HCPCS: 0241U; 36415; 71275; 74177; 80053; 81001; 81025; 84702; 85025; 85610; 85730; 86850; 86900; 86901; 93005; 96360; 96361; 99284; 99285; Q9967

== ENCOUNTER 2022-10-15 12:48 | Outpatient (REF) | payer MEDICAID, SELFPAY | END 2022-10-15 12:49 | disposition home or self-care (01) | LOC: HO.MDS 12:48 | PROVIDERS: Visit Provider Internal Medicine | DX: D50.9 Iron deficiency anemia, unspecified (principal) | CPT/HCPCS: 96365; J1756 ==

== ENCOUNTER 2022-10-30 11:06 | Outpatient (REF) | payer MEDICAID, SELFPAY | END 2022-10-30 11:07 | disposition home or self-care (01) | LOC: HO.MDS 11:06 | PROVIDERS: Visit Provider Internal Medicine | DX: D50.9 Iron deficiency anemia, unspecified (principal) | CPT/HCPCS: 96365; J1756 ==

== ENCOUNTER 2022-11-06 11:11 | Outpatient (REF) | payer MEDICAID, SELFPAY | END 2022-11-06 11:12 | disposition home or self-care (01) | LOC: HO.MDS 11:11 | PROVIDERS: Visit Provider Internal Medicine | DX: D50.9 Iron deficiency anemia, unspecified (principal) | CPT/HCPCS: 96365; J1756 ==

== ENCOUNTER 2022-11-13 11:06 | Outpatient (REF) | payer MEDICAID, SELFPAY | END 2022-11-13 11:07 | disposition home or self-care (01) | LOC: HO.MDS 11:06 | PROVIDERS: Visit Provider Internal Medicine | DX: D50.9 Iron deficiency anemia, unspecified (principal) | CPT/HCPCS: 96365; J1756 ==

== ENCOUNTER 2022-11-18 10:13 | Emergency (ER) | payer MEDICAID, SELFPAY ==
[2022-11-18 10:20] VITALS: BP 125/84; PULSE 63; RESP 16; TEMP 36.6; O2SAT 99; BMI 28.8
[2022-11-18 10:53] VITALS: BP 122/71; PULSE 79; RESP 15; TEMP 36.8; O2SAT 100
--- NOTE | 2022-11-18 10:58 | PC.NURSE ---
pt AOx3, VSS. reports weakness and upper abd pain and lower back/flank pain. Pt had additional symptoms earlier in the week - N/V but they have since resolved.
[2022-11-18] MEDS: 0.9 % Sodium Chloride 1,000 ML 999 ML IV (11:23)
--- NOTE | 2022-11-18 11:23 | PC.NURSE ---
labs drawn, IV inserted. fluids hung per order.
[2022-11-18 11:25] LABS: MANUAL DIFF FLAG NO
[2022-11-18 11:27] LABS: Basophils Percent Auto 0.4 % (0-2); Eosinophils Absolute Auto 0.1 X10*3/uL (0.0-0.4); Eosinophils Percent Auto 0.7 % (0-4); Hematocrit 36.5 % (37.0-47.0); Hemoglobin 11.5 g/dl (12.0-16.0); Imm Gran Abs Auto 0.02 X10*3/uL (0.00-0.03); Imm Gran Pct Auto 0.3 % (0.0-0.4); Mean Corpuscular HGB Conc 31.5 g/dl (31.0-35.0); Mean Corpuscular Hemoglobin 22.9 pg (27.0-33.0); Mean Corpuscular Volume 72.7 fL (80.0-98.0); Mean Platelet Volume 9.7 fL (9.4-12.3); Monocytes Absolute Auto 0.5 X10*3/uL (0.1-1.2); Monocytes Percent Auto 7.6 % (2-11); Neutrophils Absolute Auto 4.1 x10*3/uL (2.0-8.3); Platelet Count 247 X10*3/uL (160-400); Red Blood Count 5.02 X10*6/uL (4.20-5.50); Red Cell Distribution Width 16.7 % (11.0-16.0); White Blood Count 6.7 X10*3/uL (4.8-10.8)
[2022-11-18 11:28] LABS: Appearance Urine Clear; Color Urine Yellow; Glucose Urine UA Negative (Negative); Leukocyte Esterase Urine Negative (Negative); Nitrite Urine Negative (Negative); Specific Gravity - Urine 1.025 (1.005-1.025); Urine Blood Negative (Negative); Urine Ketones Negative (Negative); Urine Protein Negative (Neg-Trace)
--- NOTE | 2022-11-18 11:28 | ED_ITS ---
HPI - General Adult General Chief complaint: Abdominal Pain Stated complaint: Nausea/Back pain rad to frnt Time Seen by Provider: 11/18/22 10:53 Source: patient Mode of arrival: ambulatory Limitations: no limitations History of Present Illness HPI narrative: 36-year-old female with pmh of cholycystectomy presents to the ED for diarrhea, headache, body aches, vomiting, back pain, abdominal pain and subjective fever. patient states symptoms began last week Saturday. Patient denies any coughing, chest pain, shortness of breath. patient denies any blood in his stool, dysuria, hematuria or flank pain. Patient denies any vaginal bleeding or vaginal discharge. Related Data Home Medications Medication Instructions Recorded Confirmed fluvoxamine 50 mg tablet 50 mg PO BEDTIME 02/26/22 09/25/22 gabapentin 100 mg capsule 100 mg PO TID 02/26/22 09/25/22 clonazepam 0.5 mg tablet 0.5 mg PO DAILY 04/12/22 09/25/22 Previous Rx's Medication Instructions Recorded hydrocortisone 2.5 % topical cream 1 appl OR BID PRN hemorrhoids #30 08/25/20 with perineal applicator grams (Proctosol HC) acetaminophen 500 mg tablet 1,000 mg PO QID PRN fever or pain 06/24/21 (Tylenol Extra Strength) #14 tabs [id number] 1 cap PO TID 30 days #90 caps 07/05/22 10,000-32,000-42,000 unit capsule,delayed rel (Zenpep) baclofen 10 mg tablet 5 mg PO BID 30 days #30 tabs 08/23/22 desogestrel 0.15 mg-ethinyl 1 tab PO DAILY #84 tabs 09/03/22 estradiol 0.03 mg tablet (Apri) sucralfate 100 mg/mL oral 10 ml PO QIDACHS 30 days #1,000 mL 11/12/22 suspension famotidine 20 mg tablet (Pepcid) 20 mg PO BID 10 days #20 tabs 11/18/22 Allergies Allergy/AdvReac Type Severity Reaction Status Date / Time No Known Allergies Allergy Verified 11/18/22 10:20 Review of Systems Review of Systems: subjective fever, abdominal pain, diarrhea, vomiting, body aches, headache Yes all other systems are reviewed and are negative PMFSH Past Medical History Medical History Candidiasis of mouth and esophagus Dysphagia Hemorrhoids with complication Odynophagia Surgical History History of esophagogastroduodenoscopy (EGD) History of laparoscopic cholecystectomy (02/28/22) History of tonsillectomy Hx of colonoscopy Hx of laparoscopy Family History Family History Father CVD (cardiovascular disease) Colon polyps Hypercholesteremia Diabetes Mother Thyroid condition CVD (cardiovascular disease) Fibromyalgia Heart problem Hypertension Sister HIV (human immunodeficiency virus infection) Brother No problems noted. Son No problems noted. Son No problems noted. Social History Social History (Updated 09/25/22 @ 14:32 by Karen Vazquez) Household Members: Children Alcohol intake: never Patient Tobacco Use Status: Never used Tobacco Smoked in Last 30 Days: No Use of substances other than those prescribed or required for medical reasons: No Advance Directives: No Advance Directives Information Provided: No Patient : No service: No Current occupational status: employed Physical Exam ED Vital Signs: Vital Signs - 24 hr 11/18/22 10:20 11/18/22 10:53 11/18/22 12:00 Temperature 98 F 98.2 F 98 F Pulse Rate 63 79 71 Respiratory Rate 16 15 18 Blood Pressure 125/84 122/71 108/63 Pulse Oximetry 99 100 100 Oxygen Delivery Method Room Air Room Air Room Air 11/18/22 14:56 Temperature Pulse Rate 77 Respiratory Rate 16 Blood Pressure 111/70 Pulse Oximetry 98 Oxygen Delivery Method Room Air BMI result Body Mass Index 28.8 Const General: cooperative, healthy appearing, comfortable, no acute distress, well developed, alert, awake and Physically active Orientation/consciousness: oriented to person, oriented to place, oriented to time and patient oriented x3 HENMT Head: Yes normal to inspection, Yes No palpable skull fracture present, Yes normocephalic, Yes atraumatic and No abrasion Ears: hearing grossly normal bilaterally, external ears normal, TM's normal bilaterally, EAC's normal, mastoids normal and no periauricular adenopathy General nose exam: Normal external nose present and Normal nares present Throat: Yes posterior oropharynx normal, Yes tonsils normal and Yes uvula midline Eyes General: appearance normal, both eyes and all related structures Neck Neck: Yes normal visual inspection, Yes full ROM, Yes no lymphadenopathy, Yes no meningeal signs, Yes trachea midline, Yes supple, No anterior neck swelling and No tender Chest Chest palpation & inspection: normal inspection of the chest Resp Effort & Inspection: normal respiratory effort and able to speak in complete sentences Auscultation: clear to auscultation bilaterally Cardio Jugular venous distension: no JVD Heart sounds: S1 normal heart sound present and S2 normal heart sound present GI Other: negative Sanchez sign, negative rebound tenderness, negative McBurney, negative Rovsing sign, negative psoas negative obturator's sounds. Inspection: Yes normal to inspection and No abdominal wall ecchymosis Palpation (GI): Soft to palpation, not firm, nontender, no guarding and not rigid General: No CVA tenderness and Yes no CVA tenderness Back/Spine/Pelvis Back: no CVA tenderness, No CVA tenderness and No back tenderness Skin General skin exam: no rashes or lesions noted and elasticity normal Neuro General: oriented to person, oriented to place, oriented to time, patient oriented x3, gait normal, tone normal, moves all extremities, Normal light touch and pain sensation, no meningeal signs, no focal motor deficits, CN's II-XI intact bilaterally and normal sensation to monofilament Extrem General: Yes normal to inspection and Yes full ROM Psych Appearance: grossly normal, well kempt and not disheveled Course Course Course Narrative: Will do basic labs, UA, SARS, and IV fluids. Reevaluation(s) Reevaluation #1: Patient labs came back normal/baseline. SARs COVID RSV influenza negative. Re-evaluation of abdomen negative for any tenderness, guarding, or rigidity. Abdomen is benign on palpation. Patient states feels better, just acid burning sensation ( patient has PMH of acid reflux) . No need for CT scan of abdomen. Negative for elevated white blood cell, labs stable, and patient does not have any abdominal tenderness on palpation. history physical exam does not indicate retained stone in common bowel duct, appendicitis, colitis, kidney stones, pyelonephritis, abdominal rupture, pancreatitis, peritonitis, or any other emergent life threatening diagnosis. . Time: 13:41 Medications Administered Discontinued Medications Generic Name Dose Route Start Last Admin Trade Name Freq PRN Reason Stop Dose Admin Al Hydroxide/Mg Hydroxide 30 ml 11/18/22 11:28 11/18/22 11:32 Magnesium Hydrox/Alum Hydrox 30 Ml Oral.Susp PO 11/18/22 11:29 30 ml ONCE ONE Administration Belladonna Alkaloids/Phenobarbital 10 ml 11/18/22 11:07 11/18/22 11:36 Phenobarb/Hyoscy/Atropine/Scop 10 Ml Elixir PO 11/18/22 11:08 10 ml ONCE ONE Administration Famotidine 20 mg 11/18/22 11:07 11/18/22 11:32 Famotidine 20 Mg Tablet PO 11/18/22 11:08 20 mg ONCE ONE Administration Sodium Chloride 1,000 mls @ 999 mls/hr 11/18/22 11:07 11/18/22 12:24 Ns IV 11/18/22 12:07 Infused .Q1H1M STA Infusion Lidocaine HCl 15 ml 11/18/22 11:07 11/18/22 11:32 Lidocaine Hcl Viscous 2 % 15 Ml Solution MUCOUS MEM 11/18/22 11:08 15 ml ONCE ONE Administration Medical Decision Making Medical Decision Making [facility] Narrative: 36-year-old female presents to ED for fever, abdominal pain, diarrhea, body aches headache. Patient well-appearing. Medical workup was normal. Differential Diagnosis Differential Diagnoses: The differential diagnosis associated with the presentation includes ( Gastroenteritis, so COVID, flu, RSV, UTI, colitis, ) Admission/Observation Consideration of admission/observation: Escalation of care including admission/observation considered Lab Data [facility] Lab Attestation statement: I reviewed the patient's lab results. 11/18/22 11:20 11/18/22 11:20 Labs: Lab Results 11/18/22 11/18/22 11/18/22 Range/Units 11:06 11:20 11:20 WBC 6.7 (4.8-10.8) X10*3/uL RBC 5.02 D (4.20-5.50) X10*6/uL Hgb 11.5 L D (12.0-16.0) g/dl Hct 36.5 L D (37.0-47.0) % MCV 72.7 L (80.0-98.0) fL MCH 22.9 L (27.0-33.0) pg MCHC 31.5 (31.0-35.0) g/dl RDW 16.7 H (11.0-16.0) % Plt Count 247 (160-400) X10*3/uL MPV 9.7 (9.4-12.3) fL Immature Gran % (Auto) 0.3 (0.0-0.4) % Neut % (Auto) 61.0 (45-73) % Lymph % (Auto) 30.0 (20-40) % Stephenson % (Auto) 7.6 (2-11) % Eos % (Auto) 0.7 (0-4) % Baso % (Auto) 0.4 (0-2) % Lymph # (Auto) 2.0 (1.2-4.9) X10*3/uL Stephenson # (Auto) 0.5 (0.1-1.2) X10*3/uL Eos # (Auto) 0.1 (0.0-0.4) X10*3/uL Baso # (Auto) 0.0 (0.0-0.2) X10*3/uL Abs Immat Gran (auto) 0.02 (0.00-0.03) X10*3/uL Absolute Neuts (auto) 4.1 (2.0-8.3) x10*3/uL Absolute Nucleated RBC 0.000 (0.0-0.012) X10*3/uL Nucleated RBC % (auto) 0.0 (0.0-0.2) /100WBC PT 11.8 (10.0-13.1) SEC INR 1.0 (0.9-1.1) APTT 36.8 H (26.0-36.4) SEC Sodium (135-145) mmol/L Potassium (3.3-5.1) mmol/L Chloride (96-108) mmol/L Carbon Dioxide (22-29) mmol/L Anion Gap (12-20) BUN (9-16) mg/dL Creatinine (0.5-1.4) mg/dL Estim Creat Clear Calc Estimated GFR Random Glucose (60-115) mg/dL Calcium (8.4-10.2) mg/dL Total Bilirubin (0.0-1.0) mg/dL AST (5-31) U/L ALT (0-31) U/L Alkaline Phosphatase (39-117) U/L Total Protein (6.5-8.0) g/dL Albumin (3.5-5.0) g/dL Lipase (8-78) U/L Beta HCG, Quant mIU/mL Urine Color Urine Appearance Urine pH (5.0-9.0) Ur Specific [place] (1.005-1.025) Urine Protein (Neg-Trace) mg/dL Urine Glucose (UA) (Negative) mg/dL Urine Ketones (Negative) mg/dL Urine Blood (Negative) Urine Nitrite (Negative) Ur Leukocyte Esterase (Negative) Influenza Type A (PCR) NEGATIVE (Negative) Influenza Type B (PCR) NEGATIVE (Negative) RSV RNA Qual (PCR) NEGATIVE (Negative) SARS-CoV-2 RNA (RT-PCR) NEGATIVE (Negative) 11/18/22 11/18/22 11/18/22 Range/Units 11:20 11:20 11:20 WBC (4.8-10.8) X10*3/uL RBC (4.20-5.50) X10*6/uL Hgb (12.0-16.0) g/dl Hct (37.0-47.0) % MCV (80.0-98.0) fL MCH (27.0-33.0) pg MCHC (31.0-35.0) g/dl RDW (11.0-16.0) % Plt Count (160-400) X10*3/uL MPV (9.4-12.3) fL Immature Gran % (Auto) (0.0-0.4) % Neut % (Auto) (45-73) % Lymph % (Auto) (20-40) % Stephenson % (Auto) (2-11) % Eos % (Auto) (0-4) % Baso % (Auto) (0-2) % Lymph # (Auto) (1.2-4.9) X10*3/uL Stephenson # (Auto) (0.1-1.2) X10*3/uL Eos # (Auto) (0.0-0.4) X10*3/uL Baso # (Auto) (0.0-0.2) X10*3/uL Abs Immat Gran (auto) (0.00-0.03) X10*3/uL Absolute Neuts (auto) (2.0-8.3) x10*3/uL Absolute Nucleated RBC (0.0-0.012) X10*3/uL Nucleated RBC % (auto) (0.0-0.2) /100WBC PT (10.0-13.1) SEC INR (0.9-1.1) APTT (26.0-36.4) SEC Sodium 142 (135-145) mmol/L Potassium 3.8 (3.3-5.1) mmol/L Chloride 107 (96-108) mmol/L Carbon Dioxide 27 (22-29) mmol/L Anion Gap 12 (12-20) BUN 8 L (9-16) mg/dL Creatinine 0.73 (0.5-1.4) mg/dL Estim Creat Clear Calc 101.6 Estimated GFR > 60 Random Glucose 110 (60-115) mg/dL Calcium 8.6 D (8.4-10.2) mg/dL Total Bilirubin 0.3 (0.0-1.0) mg/dL AST 17 (5-31) U/L ALT 14 (0-31) U/L Alkaline Phosphatase 87 (39-117) U/L Total Protein 6.8 (6.5-8.0) g/dL Albumin 4.0 (3.5-5.0) g/dL Lipase 18 (8-78) U/L Beta HCG, Quant < 2 mIU/mL Urine Color Yellow Urine Appearance Clear Urine pH 6.0 (5.0-9.0) Ur Specific [place] 1.025 (1.005-1.025) Urine Protein Negative (Neg-Trace) mg/dL Urine Glucose (UA) Negative (Negative) mg/dL Urine Ketones Negative (Negative) mg/dL Urine Blood Negative (Negative) Urine Nitrite Negative (Negative) Ur Leukocyte Esterase Negative (Negative) Influenza Type A (PCR) (Negative) Influenza Type B (PCR) (Negative) RSV RNA Qual (PCR) (Negative) SARS-CoV-2 RNA (RT-PCR) (Negative) Prescription Management I considered prescription management with: Other (pepcid) Discharge Plan Discharge Clinical Impression: Gastroenteritis, GERD (gastroesophageal reflux disease) Patient Disposition: Home, Self-Care Instructions: Gastroenteritis (ED), Gastroesophageal Reflux Disease (ED), Viral Syndrome (ED) Additional Instructions: Nilda laboratorios, UA, COVID, RSV, influenza resultaron negativos. usted est? a jacob para el deven. Recomendar hidrataci?n oral con agua, jugo de naranja, pulso card?aco, chaleco antibalas y Gatorade. Recomiende la dieta Brat que consist?a en pl?kasia, arroz, pur? de manzana y tostadas. Regrese al servicio de urgencias de inmediato por christian en las heces, empeoramiento del dolor abdominal, incapacidad para tolerar alimentos s?lidos/l?quidos, fiebre, escalofr?os, disuria, hematuria, dolor en el costado, dolor en el pecho, dificultad para respirar, rigidez en el campos, fotofobia, dolor de adela intenso o cualquier otro. concerniente a los s?ntomas. Por favor, jessie un seguimiento con dias proveedor de atenci?n primaria. Prescriptions: New famotidine [Pepcid] 20 mg tablet 20 mg PO BID 10 Days Qty: 20 0RF No Action sucralfate 100 mg/mL suspension 10 ml PO QIDACHS 30 Days Qty: 1000 3RF acetaminophen [Tylenol Extra Strength] 500 mg tablet 1,000 mg PO QID PRN (Reason: fever or pain) Qty: 14 0RF desogestrel-ethinyl estradiol [Apri] 0.15-0.03 mg tablet 1 tab PO DAILY Qty: 84 0RF Rx Instructions: Take 1 tablet every 12 hours for the 1st 7 days, then 1 tablet daily. hydrocortisone [Proctosol HC] 2.5 % cream with perineal applicator 1 appl OR BID PRN (Reason: hemorrhoids) Qty: 30 3RF clonazepam 0.5 mg tablet 0.5 mg PO DAILY Zenpep 10,000-32,000 -42,000 unit capsule,delayed release(DR/EC) 1 cap PO TID 30 Days Qty: 90 2RF Rx Instructions: administer with meals and/or snacks baclofen 10 mg tablet 5 mg PO BID 30 Days Qty: 30 3RF gabapentin 100 mg capsule 100 mg PO TID fluvoxamine 50 mg tablet 50 mg PO BEDTIME Stand Alone Forms: Work/School Release Interventions: ED Discharge Assessment Last Done: 11/18/22 15:04 Discharge Date/Time: 11/18/22 15:04 Print Language: Colombian
[2022-11-18] MEDS: Famotidine 20 MG TABLET PO (11:32)
[2022-11-18] MEDS: Magnesium Hydrox/Alum Hydrox 30 ML ORAL.SUSP PO (11:32)
[2022-11-18] MEDS: Lidocaine HCl Viscous 2 % 15 ML SOLUTION MUCOUS MEM (11:32)
[2022-11-18 11:35] LABS: Prothrombin Time 11.8 SEC (10.0-13.1)
[2022-11-18] MEDS: PHENobarb/Hyoscy/Atropine/Scop 10 ML ELIXIR PO (11:36)
[2022-11-18 11:38] LABS: Partial Thromboplastin Time 36.8 SEC (26.0-36.4)
--- NOTE | 2022-11-18 11:39 | PC.NURSE ---
pt medicated with GI cocktail per order. will continue to monitor
[2022-11-18 11:43] LABS: Lipase 18 U/L (8-78)
[2022-11-18 11:52] LABS: Influenza A PCR NEGATIVE (Negative); Influenza B PCR NEGATIVE (Negative); Resp Syncy Virus RNA Qual PCR NEGATIVE (Negative); SARS COV2 PCR INHOUSE NEGATIVE (Negative)
[2022-11-18 11:53] LABS: Alanine Aminotransferase 14 U/L (0-31); Alkaline Phosphatase 87 U/L (39-117); Anion Gap 12 (12-20); Aspartate Amino Transferase 17 U/L (5-31); Bilirubin Total 0.3 mg/dL (0.0-1.0); Blood Urea Nitrogen 8 mg/dL (9-16); Calcium 8.6 mg/dL (8.4-10.2); Carbon Dioxide 27 mmol/L (22-29); Chloride 107 mmol/L (96-108); Creatinine Clr Calc Pharmacy 101.6; Estimated Glomerular Filt Rate > 60; Glucose Random 110 mg/dL (60-115); Potassium 3.8 mmol/L (3.3-5.1); Sodium 142 mmol/L (135-145); Total Protein 6.8 g/dL (6.5-8.0)
[2022-11-18 11:56] LABS: HCG Quantitative < 2 mIU/mL
[2022-11-18 12:00] VITALS: BP 108/63; PULSE 71; RESP 18; TEMP 36.6; O2SAT 100
--- NOTE | 2022-11-18 13:42 | PC.NURSE ---
pt resting quietyl, AO. VSS. Reports continued abd discomfot, but that GI cocktail helped her pain somewhat.
[2022-11-18 14:56] VITALS: BP 111/70; PULSE 77; RESP 16; O2SAT 98
== END 2022-11-18 15:04 | disposition home or self-care (01) ==
PROVIDERS: Physician Assistant; Emergency Provider Student in an Organized Health Care Education/Training Program; PCP Internal Medicine
DX: K52.9 Noninfective gastroenteritis and colitis, unspecified (principal); K21.9 Gastro-esophageal reflux disease without esophagitis; M79.10 Myalgia, unspecified site; R51.9 Headache, unspecified; Z20.822 Contact with and (suspected) exposure to COVID-19; Z20.828 Contact with and (suspected) exposure to other viral communicable diseases; Z79.899 Other long term (current) drug therapy
CPT/HCPCS: 0241U; 36415; 80053; 81003; 83690; 84702; 85025; 85610; 85730; 99284; 99285

== ENCOUNTER 2022-11-26 11:43 | Outpatient (REF) | payer MEDICAID, SELFPAY | END 2022-11-26 11:44 | disposition home or self-care (01) | LOC: HO.MDS 11:43 | PROVIDERS: Visit Provider Internal Medicine | DX: D50.9 Iron deficiency anemia, unspecified (principal) | CPT/HCPCS: 96374; J1756 ==

== ENCOUNTER 2022-11-29 10:34 | Outpatient (REF) | payer MEDICAID, SELFPAY ==
--- NOTE | ~2022-11-29 | XR_ITS ---
EXAMINATION: XR LUMBOSACRAL SPINE CLINICAL INFORMATION: Low back pain COMPARISON: None available. TECHNIQUE: Three views of the lumbosacral spine. FINDINGS: The vertebral bodies and posterior elements are normal. The disc spaces are preserved and the vertebral alignment is normal. The paraspinal soft tissues are normal. XR/XR lumbar spine 2-3V IMPRESSION: Unremarkable examination.
== END 2022-11-29 10:35 | disposition home or self-care (01) ==
LOC: HO.XRAY 10:34
PROVIDERS: PCP Internal Medicine; Visit Provider Internal Medicine
DX: M54.50 Low back pain, unspecified (principal)
CPT/HCPCS: 72100

== ENCOUNTER 2023-03-15 13:45 | Outpatient (REF) | payer MEDICAID, SELFPAY | END 2023-03-15 13:46 | disposition home or self-care (01) | LOC: HO.LAB 13:45 | PROVIDERS: PCP Internal Medicine; Visit Provider Internal Medicine | DX: E61.1 Iron deficiency (principal) | CPT/HCPCS: 36415; 82728; 83540; 85027 ==

== ENCOUNTER 2023-05-17 12:11 | Outpatient (AMB) | payer MEDICAID, SELFPAY ==
--- NOTE | 2023-05-17 12:15 | A.OFFVIS_ITS ---
Intake Vital Signs 05/17/23 12:19 Height 5 ft 3 in Weight 165 lb 5.547 oz BMI 29.3 BP 123/69 Blood Pressure Location Lt brachial Position Sitting Pulse 90 Intake Visit Reasons: Follow up Intake Note: Patient presents to in office visit today in follow up of biliary diskynesia. Patient c/o epigastric pain, nausea, bloating, gas, acid reflux, heartburn, and diarrhea. She reports she discontinued the Pepcid because she felt her stomach would fill up with gastric juices . 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 Accompanied by: Spouse Allergies No Known Allergies Allergy (Verified 01/01/23 10:26) Medication List - Last Reconciled 05/17/23 by Floridalma Green MD acetaminophen (Tylenol Extra Strength) 1,000 mg (2 x 500 mg) PO QID PRN albuterol sulfate 90 mcg/actuation (Ventolin HFA) 2 puffs inhalation Q4H PRN clonazepam 0.5 mg PO DAILY famotidine (Pepcid) 20 mg PO BID 10 days fluvoxamine 50 mg PO BEDTIME gabapentin 100 mg PO TID hydrocortisone 2.5% (Proctosol HC) 1 appl [place] BID PRN albusv-litbqnww-hautaft 10,000-32,000 -42,000 unit (Zenpep) 1 cap PO TID 30 days sucralfate (Carafate) 10 mL PO QID HPI Follow up HPI Details GI clinic visit for this 37 YF referred by Clementina Ledezma NP for a 2nd opinion Pt has been followed by Clementina since 12/2018 for IBS with constipation, GERD She has failed all qpha-tvy-xxtogqqm and currently is on fiber and Colace as? well. She has failed Linzess and Motegrity so now I think it is time to move her? forward to [facility][Note 3]. She says that she completed the abx? and it helped, but she is still having a lot of constipation and very hard? stools. She stopped taking the motegriy because it made her feel constpated. She? continues on colace and fiber. 02/28/22 PT had a Lap Lizbeth by Dr Bacon : Pt had abdominal pain in the right upper quadrant radiating to the back associated with fatty food intake.? Ultrasound was negative for gallstones however HIDA scan was positive for biliary dyskinesia. Operative findings:? Normal appearing gallbladder with no palpable gallstones LABS [facility] : Positive EN 1:320 IMAGING STUDIES:? MRE SHOWED: No evidence of active inflammatory bowel changes. ?Hepatic steatosis. ?Findings suggestive of adenomyosis in the appropriate clinical context. Further evaluation could be obtained with a dedicated pelvic ultrasound. The endometrium measures 0.8 cm in thickness which is within normal limits for a premenopausal patient. Correlate with menstrual history. 06/2022 BARIUM SWALLOW WITH UPPER GI APRIL WED: The swallowing mechanism is normal. No aspiration or penetration is seen. Barium tablet passed freely into the esophagus. No hernia or gastroesophageal reflux was seen. The stomach and duodenum are normal appearing. No fold thickening, mass, ulcer or stricture is seen. CT ABDOMEN AND PELVIS?02/18/22? MPRESSION: No cause GI bleeding seen. Mildly dilated fluid-filled small bowel in the left abdomen probably representing an ileus. Mild bilateral hydronephrosis and ureteral dilatation. This may be due to a well-distended bladder. ENDOSCOPIC STUDIES:? 04/2020 EGD & COLON WERE PERFORMED BY DR JEAN-BAPTISTE: EGD showed mild hyperemia at the GE junction. Colonoscopy was normal.? Random biopsies from right and left colon were normal. ESOPHAGEAL MANOMETRY ([facility]) SHOWED: No Prim Classification abnormality found. Findings are based on published? Prim classification scheme and out only intended to serve as a guide for patient diagnosis TODAY'S VISIT: Patient presents to in office visit today in follow up of biliary diskynesia. Patient c/o epigastric pain, nausea, bloating, gas, acid reflux, heartburn, and diarrhea. She reports she discontinued the Pepcid because she felt her stomach would fill up with gastric juices . Pt is accompanied by her who interpreted for the patient. Pt can understand and speak some Faroese Stopped taking Famotidine - symptoms were worse when she was taking it. Notes heartburn if she does not take it. Notes intermittent regurgitation Notes post prandial diarrhea with urgency - had constipation before the GB surgery. PAST VISITS: Taking sucralfate 4 times a day and feels acid regurgitation all the way to throat. Advised to decrease sucralfate to three times a day Has a BM once a day or can go 2 days without a BM. BMs are very painful on the side of the bladder. Continuing to have abdominal pain and pain when she has a BM. Has been taking pancreatic enzymes and still having several BMs a day. Taking sucralfate twice a day and continues to have regurgitation of acid through her nose - advised to increase to four times a day. Pt is concerned that all the tests are normal and she is continuing to have symptoms. Accompanied by her who interpreted Symptoms are getting worse and medications are not helpful Notes worsening upper abdominal pain radiating into the chest and upper esophagus Notes pressure in the head Notes urgent semisolid BM 3 hrs after eating and comes out with chunks of partly digested food. stool contain mucous and no blood. Going 6-7 times a day. Unable to go out due to diarrhea. It hurts when she swallows Wt has been stable at 158 to 160. Feels pretty bad. Having a BM Stools appear oily with a pinkish color Has to run to the bathroom every time she eats - usually 3 times. Feels full fast - food seems to be piling up in the esophagus. Has pains in the upper part of the stomach radiating to the back after drinking liquids Pain can last for 20 min - feels better once the liquid goes down. Wt has been stable - fluctuates by a few lbs. Denies constipation since GB surgery - notes pain in the upper abdomen when she goes to the bathroom. Not taking any medications for constipation. Problems with acid reflux x 8 yrs. Taking medications and continue to have heartburn every time she eats Having pain in the pit of the stomach - notes some tightness Can have abdominal pain even after drinking water. Notes bloating and gas. Going to the rest room regularly since she had GB surgery. Has a BM at least once a day. RUQ pain has resolved since the surgery Sometimes has to run to the bathroom after she eats something which does not agree with her. On a strict diet - oatmeal, fruit, chicken and rice for 1 month. Food goes down slowly when she eats - with solids and liquids. Notes regurgitation of food after eating. Has a lot of nausea and does not feel hungry. Complains of vomiting and lost 6 lbs in the past week. Denies recent black stools or rectal bleeding. Patient denies major cardiac or pulmonary problems, loud snoring or sleep apnea Denies problems with anesthesia in the past. Denies being on chronic anticoagulation. Patient denies known family history of colon polyps, colon cancer or other GI malignancies. Dad, paternal uncle and a nephew had colon polyps. Father had PUD. PAST GI HISTORY BY REVIEW OF MEDICAL RECORDS: Initial visit with December: She was seen greater than 4 years ago by Syeda Mott NP. ?At that time? she was being treated with both Linzess and Lotronex (??) for IBS. She was on? Reglan despite a normal gastric emptying study, and was also complaining of? anxiety. ?She had a normal colonoscpy in 2013 and an EGD in 2012 as? follows: ?GENERAL IMPRESSION:Distal esophagitis grade 1.Soft changes? consistent with gastroesophageal refluxdisorder. Question is raised of a small? hiatal hernia. ?She had biopsies with both of these procedures that? were completely normal.?TODAYS? VISIT ?She tells me that she is having? trouble with both constipation and diarrhea. The constipation is more dominant.? She is having trouble after eating with sourness that travels up her throat. She? has HB. She is on protonix but it is not helping much. ?For the? constipaton she has used Miralax and a fiber powder, but they did not work well.? She was given prune pills but they bothered her stomach. SHe has taken? dulcolax but it irritated her stomach. She has not used senna or lactulose.?The diarrhea is more reactive after very hard, large BM's. She eats a? lot of fruits and vegetables and drinks a lot of water. ?Her father? has PUD and GERD. Her father also has constipation. LABS; TSH studies all WNL, Celiac panel negative, chem panel normal, CRP not? elevated. ?THe HP stool was not resulted. She could not produce a BM? for the HP test. ?She has also failed, aside from her senna and? colace, fiber, Miralax, and dulcolax [facility] Medical History Hemorrhoids with complication Dysphagia Candidiasis of mouth and esophagus Odynophagia Surgical History History of esophagogastroduodenoscopy (EGD) History of laparoscopic cholecystectomy (02/28/22) History of tonsillectomy Hx of colonoscopy Hx of laparoscopy Family History Father CVD (cardiovascular disease) Colon polyps Hypercholesteremia Diabetes Mother Thyroid condition CVD (cardiovascular disease) Fibromyalgia Heart problem Hypertension Sister HIV (human immunodeficiency virus infection) Brother No problems noted. Son No problems noted. Son No problems noted. Social History Household Members: Children Alcohol intake: never Patient Tobacco Use Status: Never used Tobacco service: No Current occupational status: employed Review of Systems Const All systems reviewed & are unremarkable except as noted in HPI and below Physical Exam Vital Signs: Last Vital Signs Pulse 90 05/17/23 12:19 BP 123/69 05/17/23 12:19 BMI result Body Mass Index 29.3 Const General: healthy appearing and no acute distress Nutritional Appearance: overweight Orientation/consciousness: patient oriented x3 Limitations: language barrier HEENT Head: Yes normal to inspection Ears: hearing grossly normal bilaterally Eyes Sclerae: sclerae normal Pupils: Equal, round and reactive pupils present Neck Neck: Yes normal visual inspection Chest Chest palpation & inspection: normal inspection of the chest Resp Effort & Inspection: normal respiratory effort Auscultation: clear to auscultation bilaterally Cardio Palpation: normal PMI Rate: regular rate Rhythm: regular rhythm Heart sounds: S1 normal heart sound present, S2 normal heart sound present and no murmurs GI Palpation (GI): Soft to palpation, nontender and No hepatosplenomegaly present Auscultation: normal bowel sounds Rectal Exam - Female: deferred Skin General skin exam: no rashes or lesions noted Neuro General: patient oriented x3, gait normal and moves all extremities Cranial nerves: Yes Equal, round and reactive pupils present Psych Appearance: grossly normal Mental Status: mental status grossly normal Assessment & Plan Assessment & Plan (1) Postprandial diarrhea: Code(s): K52.9 - Noninfective gastroenteritis and colitis, unspecified (2) Abnormal CT scan, gastrointestinal tract: Code(s): R93.3 - Abnormal findings on diagnostic imaging of other parts of digestive tract (3) Chronic idiopathic constipation: Code(s): K59.04 - Chronic idiopathic constipation (4) GERD (gastroesophageal reflux disease): Code(s): K21.9 - Gastro-esophageal reflux disease without esophagitis (5) Odynophagia: Comment: APPEARS TO HAVE BEEN RELATED TO ESOPHAGEAL MARCIAL Code(s): R13.10 - Dysphagia, unspecified (6) Lower abdominal pain: Code(s): R10.30 - Lower abdominal pain, unspecified (7) Hemorrhoids: Code(s): K64.9 - Unspecified hemorrhoids (8) Iron deficiency: Code(s): E61.1 - Iron deficiency (9) Hemorrhoids with complication: Code(s): K64.8 - Other hemorrhoids (10) Early satiety: Code(s): R68.81 - Early satiety (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 Pt had RUQ pain and constipation in the past which has resolved since her GB surgery and she is going to the rest room regularly since she had GB surgery. On a strict diet - oatmeal, fruit, chicken and rice for 1 month. Food goes down slowly when she eats (solids and liquids) and she notes regurgitation of food after eating. Has a lot of nausea and does not feel hungry and complains of vomiting and lost 6 lbs in the past week. 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 Abd MRI was scheduled to follow up on dilated small bowel on recent CT scan and showed hepatic steatosis and no evidence of active inflammatory bowel changes. ? Pt was referred to [facility] Motility lab and esophageal manometry was normal except elevated UES basal pressure of 210 (normal upto 104)- and not suggestive of Achalasia pH studies were not perfomed. She was advised to decrease Sucralfate to 3 times a day (since she is constipated) and start Baclofen 5 mg twice daily in the interim. If Baclofen is not helpful, trail of SSRI, TCA - nortriptyline 25 mg, citalopram 20 mg, fluoxetine 20 mg or Trazodone Of note, pt is currently on Clonazepam 0.5 mg daily and Fluvoxamine 50 mg at bedtime 05/17/23 Pt advised to take Cholestyramine for diarrhea likely related to cholecystectomy. She was started on nortriptyline since her symptoms are suggestive of acid hypersensitivity/functional heartburn Of note No significant acid reflux was noted during barium swallow with upper GI Pt will be scheduled for EGD with [facility] at [facility] with Dr Correa (off PPI) (scheduled 05/20/23) FU in 3 months Medications: New nortriptyline 25 mg PO BEDTIME 30 days 30 caps 3RF R10.10 - Upper abdominal pain, unspecified cholestyramine-aspartame 4 gram (Cholestyramine Light) administer w/meal; avoid other meds within 1hr before or 4-6hr after dose 4 grams PO BID 30 days 231 grams 2RF K91.5 - Postcholecystectomy syndrome Coding Level of Care Code Est Pt Level 4 (34631) Diagnoses Postprandial diarrhea K52.[address] scan, gastrointestinal tract R93.3 Chronic idiopathic constipation K59.04 GERD (gastroesophageal reflux disease) K21.9 Odynophagia R13.10 Lower abdominal pain R10.30 Hemorrhoids K64.9 Iron deficiency E61.1 Hemorrhoids with complication K64.8 Early satiety R68.81 Post-cholecystectomy syndrome K91.5 Upper abdominal pain R10.10 Time Spent (min) 22
[2023-05-17 12:19] VITALS: BP 123/69; PULSE 90; BMI 29.3
== END 2023-05-17 14:47 | disposition home or self-care (01) ==
PROVIDERS: Visit Provider Internal Medicine Gastroenterology
DX: K52.9 Noninfective gastroenteritis and colitis, unspecified (principal); R93.3 Abnormal findings on diagnostic imaging of other parts of digestive tract; K59.04 Chronic idiopathic constipation; K21.9 Gastro-esophageal reflux disease without esophagitis; R13.10 Dysphagia, unspecified; R10.30 Lower abdominal pain, unspecified; K64.9 Unspecified hemorrhoids; E61.1 Iron deficiency; K64.8 Other hemorrhoids; R68.81 Early satiety; K91.5 Postcholecystectomy syndrome; R10.10 Upper abdominal pain, unspecified
CPT/HCPCS: 99214

== ENCOUNTER → 2023-05-17 12:11 | Outpatient (BNVA) | payer MEDICAID, SELFPAY | PROVIDERS: Visit Provider Internal Medicine Gastroenterology ==

== ENCOUNTER 2023-05-17 14:10 | Outpatient (REF) | payer MEDICAID, SELFPAY ==
[2023-05-17 18:18] LABS: HCG Quantitative < 2 mIU/mL
== END 2023-05-17 14:11 | disposition home or self-care (01) ==
LOC: HO.CHCLDS 14:10
PROVIDERS: Visit Provider Family Medicine
DX: N92.6 Irregular menstruation, unspecified (principal); R13.10 Dysphagia, unspecified; R10.30 Lower abdominal pain, unspecified; K64.9 Unspecified hemorrhoids; E61.1 Iron deficiency; K64.8 Other hemorrhoids; R68.81 Early satiety; K91.5 Postcholecystectomy syndrome
CPT/HCPCS: 36415; 84702; 99212

== ENCOUNTER 2023-08-26 11:09 | Outpatient (REF) | payer MEDICAID, SELFPAY ==
[2023-08-26 14:08] LABS: MANUAL DIFF FLAG NO
[2023-08-26 14:23] LABS: Basophils Percent Auto 0.5 % (0-2); Eosinophils Percent Auto 0.5 % (0-4); Hematocrit 38.8 % (37.0-47.0); Hemoglobin 12.8 g/dl (12.0-16.0); Imm Gran Abs Auto 0.03 X10*3/uL (0.00-0.03); Imm Gran Pct Auto 0.4 % (0.0-0.4); Lymphocytes Absolute Auto 2.4 X10*3/uL (1.2-4.9); Lymphocytes Percent Auto 28.8 % (20-40); Mean Corpuscular Volume 78.7 fL (80.0-98.0); Mean Platelet Volume 10.9 fL (9.4-12.3); Monocytes Absolute Auto 0.4 X10*3/uL (0.1-1.2); Neutrophils Absolute Auto 5.3 x10*3/uL (2.0-8.3); Neutrophils Percent Auto 64.8 % (45-73); Platelet Count 280 X10*3/uL (160-400); Red Blood Count 4.93 X10*6/uL (4.20-5.50); Red Cell Distribution Width 12.9 % (11.0-16.0); White Blood Count 8.2 X10*3/uL (4.8-10.8)
[2023-08-26 14:40] LABS: Anion Gap 13 (12-20); Blood Urea Nitrogen 10 mg/dL (9-16); Calcium 9.2 mg/dL (8.4-10.2); Carbon Dioxide 26 mmol/L (22-29); Chloride 107 mmol/L (96-108); Estimated Glomerular Filt Rate > 60; Glucose Random 98 mg/dL (60-115); Potassium 4.7 mmol/L (3.3-5.1); Sodium 141 mmol/L (135-145)
[2023-08-26 14:56] LABS: TSH reflex Free T4 1.88 uIU/mL (0.32-4.0)
[2023-08-26 15:05] LABS: Folate 6.9 ng/mL (> or = 4.0); Vitamin B12 305 pg/mL (200-900)
== END 2023-08-26 11:10 | disposition home or self-care (01) ==
LOC: HO.CHCLDS 11:09
PROVIDERS: Visit Provider Internal Medicine
DX: L65.9 Nonscarring hair loss, unspecified (principal); R53.83 Other fatigue
CPT/HCPCS: 36415; 80048; 82607; 82746; 83735; 84443; 85025

== ENCOUNTER 2023-11-14 10:36 | Outpatient (AMB) | payer MEDICAID, SELFPAY ==
--- NOTE | 2023-11-14 10:44 | A.OFFVIS_ITS ---
Vital Signs 11/14/23 10:46 Height 5 ft 3 in Weight 163 lb BMI 28.9 BP 117/70 Blood Pressure Location Lt brachial Position Sitting Pulse 92 Intake Visit Reasons: follow up Intake Note: Patient follow up for GERD. Patient cc: Nauseas, acid reflex with burning sensation, abdominal pain with bloating, some swallowing problems and constipation. Office Manager Receptionist Required: Yes Office Manager Receptionist Name: [facility] Interpeter Dee Information Interpreted: non-clinical & clinical Accompanied by: Self / Same As Patient Allergies No Known Allergies Allergy (Verified 03/17/24 11:31) Medication List - Last Reconciled 11/14/23 by Floridalma Green MD acetaminophen (Tylenol Extra Strength) 1,000 mg (2 x 500 mg) PO QID PRN albuterol sulfate 90 mcg/actuation (Ventolin HFA) 2 puffs inhalation Q4H PRN clonazepam 0.5 mg PO DAILY famotidine (Pepcid) 20 mg PO BID 10 days fluvoxamine 50 mg PO BEDTIME gabapentin 100 mg PO TID sucralfate (Carafate) 10 mL PO QID 90 days HPI HPI follow up: Details: GI clinic visit for this 37 YF referred by Clementina Ledezma NP for a 2nd opinion Pt has been followed by Clementina since 12/2018 for IBS with constipation, GERD She has failed all [id number] and currently is on fiber and Colace as? we ll. She has failed Linzess and Motegrity so now I think it is time to move her? forward to [facility]. She says that she completed the abx? and it helped, but she is still having a lot of constipation and very hard? stools. She stopped taking the motegriy because it made her feel constpated. She? continues on colace and fiber. 02/28/22 PT had a Lap Lizbeth by Dr Bacon:Pt had abdominal pain in the right upper quadrant radiating to the back associated with fatty food intake.? Ultrasound was negative for gallstones however HIDA scan was positive for biliary dyskinesia. Operative findings:? Normal appearing gallbladder with no palpable gallstones [facility] Positive EN 1:320 IMAGING STUDIES:? MRE SHOWED: No evidence of active inflammatory bowel changes. ?Hepatic steatosis. ?Findings suggestive of adenomyosis in the appropriate clinical context. Further evaluation could be obtained with a dedicated pelvic ultrasound. The endometrium measures 0.8 cm in thickness which is within normal limits for a premenopausal patient. Correlate with menstrual history. 06/2022 BARIUM SWALLOW WITH UPPER GI SHOWED:The swallowing mechanism is normal. No aspiration or penetration is seen. Barium tablet passed freely into the esophagus. No hernia or gastroesophageal reflux was seen. The stomach and duodenum are normal appearing. No fold thickening, mass, ulcer or stricture is seen. CT ABDOMEN AND PELVIS?02/18/22? MPRESSION: No cause GI bleeding seen. Mildly dilated fluid-filled small bowel in the left abdomen probably representing an ileus. Mild bilateral hydronephrosis and ureteral dilatation. This may be due to a well-distended bladder. ENDOSCOPIC STUDIES:? 04/2020 EGD & COLON WERE PERFORMED BY DR JEAN-BAPTISTE: EGD showed mild hyperemia at the GE junction. Colonoscopy was normal.? Random biopsies from right and left colon were normal. ESOPHAGEAL MANOMETRY ([facility]) SHOWED: No [place] Classification abnormality found. Findings are based on published? [place] classification scheme and out only intended to serve as a guide for patient diagnosis TODAY'S VISIT: [facility] Tetryl Boiling Tub OperatorDee Patient cc: Nauseas, acid reflex with burning sensation, abdominal pain with bloating, some swallowing problems and constipation. She reports she discontinued the Pepcid because she felt her stomach would fill up with gastric juices . Pt is accompanied by her who interpreted for the patient. Pt can understand and speak some Bangladeshi Continues to have acid regurgitation and burning sensation in the chest. Food appears to move slowly and stops and then goes down - two days in a week. There are days when everything is normal and days she has above symptoms - 5 days a week. Stopped taking Famotidine - symptoms were worse when she was taking it. Notes heartburn if she does not take it. Notes intermittent regurgitation Notes post prandial diarrhea with urgency - had constipation before the GB surgery. Taking Carafate 4 times a day - makes her gasy and gets sharp pains radiating to her back. Has one BM a day - intermittent hard stool PAST VISITS: Taking sucralfate 4 times a day and feels acid regurgitation all the way to throat. Advised to decrease sucralfate to three times a day Has a BM once a day or can go 2 days without a BM. BMs are very painful on the side of the bladder. Continuing to have abdominal pain and pain when she has a BM. Has been taking pancreatic enzymes and still having several BMs a day. Taking sucralfate twice a day and continues to have regurgitation of acid through her nose - advised to increase to four times a day. Pt is concerned that all the tests are normal and she is continuing to have symptoms. Accompanied by her who interpreted Symptoms are getting worse and medications are not helpful Notes worsening upper abdominal pain radiating into the chest and upper esophagus Notes pressure in the head Notes urgent semisolid BM 3 hrs after eating and comes out with chunks of partly digested food. stool contain mucous and no blood. Going 6-7 times a day. Unable to go out due to diarrhea. It hurts when she swallows Wt has been stable at 158 to 160. Feels pretty bad. Having a BM Stools appear oily with a pinkish color Has to run to the bathroom every time she eats - usually 3 times. Feels full fast - food seems to be piling up in the esophagus. Has pains in the upper part of the stomach radiating to the back after drinking liquids Pain can last for 20 min - feels better once the liquid goes down. Wt has been stable - fluctuates by a few lbs. Denies constipation since GB surgery - notes pain in the upper abdomen when she goes to the bathroom. Not taking any medications for constipation. Problems with acid reflux x 8 yrs. Taking medications and continue to have heartburn every time she eats Having pain in the pit of the stomach - notes some tightness Can have abdominal pain even after drinking water. Notes bloating and gas. Going to the rest room regularly since she had GB surgery. Has a BM at least once a day. RUQ pain has resolved since the surgery Sometimes has to run to the bathroom after she eats something which does not agree with her. On a strict diet - oatmeal, fruit, chicken and rice for 1 month. Food goes down slowly when she eats - with solids and liquids. Notes regurgitation of food after eating. Has a lot of nausea and does not feel hungry. Complains of vomiting and lost 6 lbs in the past week. Denies recent black stools or rectal bleeding. Patient denies major cardiac or pulmonary problems, loud snoring or sleep apnea Denies problems with anesthesia in the past. Denies being on chronic anticoagulation. Patient denies known family history of colon polyps, colon cancer or other GI malignancies. Dad, paternal uncle and a nephew had colon polyps. Father had PUD. PAST GI HISTORY BY REVIEW OF MEDICAL RECORDS: Initial visit with December: She was seen greater than 4 years ago by Syeda Mott NP. ?At that time? she was being treated with both Linzess and Lotronex (??) for IBS. She was on? Reglan despite a normal gastric emptying study, and was also complaining of? anxiety. ?She had a normal colonoscpy in 2013 and an EGD in 2012 as? follows: ?GENERAL IMPRESSION: Distal esophagitis grade 1.Soft changes? consistent with gastroesophageal refluxdisorder. Question is raised of a small? hiatal hernia. ?She had biopsies with both of these procedures that? were completely normal.?TODAYS? VISIT ?She tells me that she is having? trouble with both constipation and diarrhea. The constipation is more dominant.? She is having trouble after eating with sourness that travels up her throat. She? has HB. She is on protonix but it is not helping much. ?For the? constipaton she has used Miralax and a fiber powder, but they did not work well.? She was given prune pills but they bothered her stomach. SHe has taken? dulcolax but it irritated her stomach. She has not used senna or lactulose.?The diarrhea is more reactive after very hard, large BM's. She eats a? lot of fruits and vegetables and drinks a lot of water. ?Her father? has PUD and GERD. Her father also has constipation. LABS; TSH studies all WNL, Celiac panel negative, chem panel normal, CRP not? elevated. ?THe HP stool was not resulted. She could not produce a BM? for the HP test. ?She has also failed, aside from her senna and? colace, fiber, Miralax, and dulax [facility] Medical History (Updated 03/18/24 @ 00:01 by Robert Stanley) Post-cholecystectomy syndrome Hemorrhoids with complication Dysphagia Candidiasis of mouth and esophagus Odynophagia Surgical History History of laparoscopic cholecystectomy (02/28/22) Hx of laparoscopy History of tonsillectomy History of esophagogastroduodenoscopy (EGD) Hx of colonoscopy Family History Father CVD (cardiovascular disease) Colon polyps Hypercholesteremia Diabetes Mother Thyroid condition CVD (cardiovascular disease) Fibromyalgia Heart problem Hypertension Sister HIV (human immunodeficiency virus infection) Brother No problems noted. Son No problems noted. Son No problems noted. Social History Household Members: Children Alcohol intake: never Patient Tobacco Use Status: Never used Tobacco Advance Directives: No service: No Current occupational status: employed Review of Systems Const All systems reviewed & are unremarkable except as noted in HPI and below Physical Exam Vital Signs: Last Vital Signs Pulse 92 11/14/23 10:46 BP 117/70 11/14/23 10:46 BMI result Body Mass Index 28.9 Const General: healthy appearing and no acute distress Nutritional Appearance: overweight Orientation/consciousness: patient oriented x3 Limitations: language barrier HEENT Head: Yes normal to inspection Ears: hearing grossly normal bilaterally Eyes Sclerae: sclerae normal Pupils: Equal, round and reactive pupils present Neck Neck: Yes normal visual inspection Chest Chest palpation & inspection: normal inspection of the chest Resp Effort & Inspection: normal respiratory effort Auscultation: clear to auscultation bilaterally Cardio Palpation: normal PMI Rate: regular rate Rhythm: regular rhythm Heart sounds: S1 normal heart sound present, S2 normal heart sound present and no murmurs GI Palpation (GI): Soft to palpation, nontender and No hepatosplenomegaly present Auscultation: normal bowel sounds Rectal Exam - Female: deferred Skin General skin exam: no rashes or lesions noted Neuro General: patient oriented x3, gait normal and moves all extremities Cranial nerves: Yes Equal, round and reactive pupils present Psych Appearance: grossly normal Mental Status: mental status grossly normal Assessment & Plan Assessment & Plan (1) Postprandial diarrhea: Code(s): K52.9 - Noninfective gastroenteritis and colitis, unspecified Category: Medical (2) Chronic idiopathic constipation: Code(s): K59.04 - Chronic idiopathic constipation Category: Medical (3) GERD (gastroesophageal reflux disease): Code(s): K21.9 - Gastro-esophageal reflux disease without esophagitis Category: Medical (4) Hemorrhoids: Code(s): K64.9 - Unspecified hemorrhoids Category: Medical (5) Early satiety: Code(s): R68.81 - Early satiety Category: Medical (6) Biliary dyskinesia: Comment: HIDA scan performed 04/2021 mildly reduced gallbladder ejection fraction of 30% Code(s): K82.8 - Other specified diseases of gallbladder Category: Medical Plan 37 YF with abdominal pain, bloating, gas and GERD symptoms x 8 yrs. Pt had RUQ pain and constipation in the past which has resolved since her GB surgery and she is going to the rest room regularly since she had GB surgery. On a strict diet - oatmeal, fruit, chicken and rice for 1 month. Food goes down slowly when she eats (solids and liquids) and she notes regurgitation of food after eating. Has a lot of nausea and does not feel hungry and complains of vomiting and lost 6 lbs in the past week. 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 Abd MRI was scheduled to follow up on dilated small bowel on recent CT scan and showed hepatic steatosis and no evidence of active inflammatory bowel changes. ? Pt was referred to [facility] Motility lab and esophageal manometry was normal except elevated UES basal pressure of 210 (normal upto 104)- and not suggestive of Achalasia pH studies were not perfomed. She was advised to decrease Sucralfate to 3 times a day (since she is constipated) and start Baclofen 5 mg twice daily in the interim. If Baclofen is not helpful, trail of SSRI, TCA - nortriptyline 25 mg, citalopram 20 mg, fluoxetine 20 mg or Trazodone Of note, pt is currently on Clonazepam 0.5 mg daily and Fluvoxamine 50 mg at bedtime 05/17/23 Pt advised to take Cholestyramine for diarrhea likely related to cholecystectomy. She was started on nortriptyline since her symptoms are suggestive of acid hypersensitivity/functional heartburn Of note No significant acid reflux was noted during barium swallow with upper GI Pt will be scheduled for EGD with F[facility] at [facility] with Dr Correa (off PPI) (scheduled 05/20/23, rescheduled to Nov and now scheduled on 01/29/24)) 11/14/23 Continues to have acid regurgitation and burning sensation in the chest. Food appears to move slowly and stops and then goes down - two days in a week. There are days when everything is normal and days she has above symptoms - 5 days a week. Stopped taking Famotidine - symptoms were worse when she was taking it. Notes heartburn if she does not take it. Notes intermittent regurgitation Notes post prandial diarrhea with urgency - had constipation before the GB surgery. Taking Carafate 4 times a day - makes her gasy and gets sharp pains radiating to her back. Has one BM a day - intermittent hard stoolPt advised a trail of Dexlanosprazole and follow a FODMAP diet x 6 weeks FU in 3 months - scheduled for EGD with Farris on 01/29/24 and FU appt on 02/13/24 Medications: New dexlansoprazole (Dexilant) 30 mg PO DAILY 30 caps 2RF 30 days K21.9 - Gastro- esophageal reflux disease without esophagitis, R07.89 - Other chest pain Coding Level of Care Code Est Pt Level 4 (97564) Diagnoses Postprandial diarrhea K52.9 Chronic idiopathic constipation K59.04 GERD (gastroesophageal reflux disease) K21.9 Hemorrhoids K64.9 Early satiety R68.81 Biliary dyskinesia K82.8 Time Spent (min) 25
[2023-11-14 10:46] VITALS: BP 117/70; PULSE 92; BMI 28.9
== END 2023-11-14 11:56 | disposition home or self-care (01) ==
PROVIDERS: PCP Internal Medicine; Visit Provider Internal Medicine Gastroenterology
DX: K52.9 Noninfective gastroenteritis and colitis, unspecified (principal); K59.04 Chronic idiopathic constipation; K21.9 Gastro-esophageal reflux disease without esophagitis; K64.9 Unspecified hemorrhoids; R68.81 Early satiety; K82.8 Other specified diseases of gallbladder
CPT/HCPCS: 99499

== ENCOUNTER → 2023-11-14 10:36 | Outpatient (BNVA) | payer MEDICAID, SELFPAY | PROVIDERS: PCP Internal Medicine; Visit Provider Internal Medicine Gastroenterology ==

== ENCOUNTER 2024-01-14 12:05 | Outpatient (REF) | payer MEDICAID, SELFPAY ==
--- NOTE | ~2024-01-14 | US_ITS ---
EXAMINATION: US ABDOMEN LIMITED CLINICAL INFORMATION: Lump in right upper quadrant. COMPARISON: CT abdomen and pelvis 09/03/2022. MR abdomen 04/10/2022. Ultrasound abdomen 12/03/2021 and 07/25/2022. TECHNIQUE: Real-time imaging of the right upper quadrant abdominal viscera. FINDINGS: No sonographic correlate to the reported areas of palpable concern. No hernia. No lymphadenopathy. No soft tissue mass. US/US abdomen limited IMPRESSION: No sonographic correlate to the reported areas of palpable concern.
== END 2024-01-14 12:06 | disposition home or self-care (01) ==
LOC: HO.US 12:05
PROVIDERS: PCP Internal Medicine; Visit Provider Internal Medicine
DX: D49.2 Neoplasm of unspecified behavior of bone, soft tissue, and skin (principal)
CPT/HCPCS: 76705

== ENCOUNTER 2024-02-12 11:23 | Outpatient (REF) | payer MEDICAID, SELFPAY ==
[2024-02-12 14:02] LABS: MANUAL DIFF FLAG NO
[2024-02-12 14:11] LABS: Basophils Absolute Auto 0.1 X10*3/uL (0.0-0.2); Basophils Percent Auto 0.7 % (0-2); Eosinophils Absolute Auto 0.1 X10*3/uL (0.0-0.4); Eosinophils Percent Auto 0.9 % (0-4); Hematocrit 37.7 % (37.0-47.0); Hemoglobin 12.6 g/dl (12.0-16.0); Imm Gran Abs Auto 0.02 X10*3/uL (0.00-0.03); Imm Gran Pct Auto 0.3 % (0.0-0.4); Lymphocytes Absolute Auto 2.5 X10*3/uL (1.2-4.9); Lymphocytes Percent Auto 32.7 % (20-40); Mean Corpuscular HGB Conc 33.4 g/dl (31.0-35.0); Mean Corpuscular Hemoglobin 26.1 pg (27.0-33.0); Mean Corpuscular Volume 78.2 fL (80.0-98.0); Mean Platelet Volume 10.7 fL (9.4-12.3); Monocytes Absolute Auto 0.5 X10*3/uL (0.1-1.2); Monocytes Percent Auto 6.4 % (2-11); Neutrophils Absolute Auto 4.4 x10*3/uL (2.0-8.3); Platelet Count 305 X10*3/uL (160-400); Red Blood Count 4.82 X10*6/uL (4.20-5.50); Red Cell Distribution Width 12.9 % (11.0-16.0); White Blood Count 7.5 X10*3/uL (4.8-10.8)
[2024-02-12 14:32] LABS: Iron 41 mcg/dL (30-160); Percent Iron Saturation 12 % (15-50); Total Iron Binding Capacity 339 mcg/dL (228-428); Unsaturated Iron Binding 298 ug/dL
[2024-02-12 14:48] LABS: Vitamin D 25-OH Total 31.8 ng/mL (>30)
[2024-02-12 14:59] LABS: Folate 7.6 ng/mL (> or = 4.0); Vitamin B12 283 pg/mL (200-900)
== END 2024-02-12 11:24 | disposition home or self-care (01) ==
LOC: HO.HHCL 11:23
PROVIDERS: Visit Provider Internal Medicine
DX: D50.0 Iron deficiency anemia secondary to blood loss (chronic) (principal); E55.9 Vitamin D deficiency, unspecified
CPT/HCPCS: 36415; 82306; 82607; 82746; 83540; 85025

== ENCOUNTER 2024-03-17 10:37 | Emergency (ER) | payer MEDICAID, SELFPAY ==
--- NOTE | ~2024-03-17 | US_ITS ---
EXAMINATION: US PELVIS CLINICAL INFORMATION: Heavy vaginal bleeding. COMPARISON: Pelvic ultrasound August 16, 2022. CT scan abdomen pelvis September 03, 2022. MRI of the pelvis April 10, 2022 TECHNIQUE: Ultrasound of the pelvis is performed using both transabdominal and transvaginal transducers along with Doppler. Transvaginal imaging is performed due to inadequate visualization transabdominally. FINDINGS: Uterus: The uterus is anteverted and anteflexed and measures 11 x 5.1 x 5.7 cm. Nabothian cysts at the cervix The double wall endometrial thickness is 17 mm. The uterus is smooth in contour and has normal myometrial echogenicity. No visible fibroid. Adnexa: Both ovaries are visualized. There is normal color flow to the adnexa. There is no ovarian torsion. There is no pelvic ascites or fluid collection. Right ovary measures 2.7 x 1.1 x 1.3 cm. Volume 2 mL Left ovary measures 3.6 x 3.1 x 2.6 cm. Volume 15.2 mL. There is a septated cyst with daughter cyst measuring 2.5 cm. This is unchanged since pelvic ultrasound August 16, 2022. No further follow-up imaging recommended. US/US pelvic and transvaginal IMPRESSION: Normal ultrasound of pelvis.
[2024-03-17 11:29] VITALS: BP 146/67; PULSE 76; RESP 16; TEMP 37; O2SAT 100; BMI 29.3
--- NOTE | 2024-03-17 11:35 | ED.GENADULT ---
HPI - General Adult General Chief complaint: Abdominal Pain Stated complaint: heavy menstrual for 3 weeks Time Seen by Provider: 03/17/24 14:56 Source: patient Mode of arrival: ambulatory Limitations: no limitations History of Present Illness HPI narrative: 38 year old female with a PMHx of hemorrhoids, dysphagia, uterine fibroids, and endometriosis presents to the ER with at beside due to 2.5 weeks of vaginal bleeding with blood clots. She states that she has to wear four adult diapers daily due to heaviness. Reports that the same occurrence happened 4-5 months ago, used PO iron, no blood transfusion. Associated symptoms consist of nausea, tiredness, dizziness as if the room is spinning, throbbing headache. Denies vision changes, V/C/D, abdominal pain or pelvic pain. Denies contraception and not sexually active. Denies urinary symptoms. Notes palpitations when ambulating. No fever, chills, chest pain, or dyspnea. Was seen by closing coordinator 2 weeks ago whom prescribed TXA has been taking it for 5 days. Had fibroids removed a few years ago. Related Data Home Medications ?Medication ?Instructions ?Recorded ?Confirmed fluvoxamine 50 mg tablet 50 mg PO BEDTIME 02/26/22 11/14/23 gabapentin 100 mg capsule 100 mg PO TID 02/26/22 11/14/23 clonazepam 0.5 mg tablet 0.5 mg PO DAILY 04/12/22 11/14/23 albuterol sulfate 90 mcg/actuation 2 puff inhalation Q4H PRN wheezing 05/17/23 11/14/23 aerosol inhaler (Ventolin HFA) Previous Rx's ?Medication ?Instructions ?Recorded acetaminophen 500 mg tablet 1,000 mg (2 x 500 mg) PO QID PRN 06/24/21 (Tylenol Extra Strength) fever or pain #14 tabs famotidine 20 mg tablet (Pepcid) 20 mg PO BID 10 days #20 tabs 11/18/22 sucralfate 100 mg/mL oral 10 ml PO QID 90 days #3,600 mL 08/09/23 suspension (Carafate) dexlansoprazole 30 mg 30 mg PO .daily 90 days #90 caps 02/10/24 capsule,biphase delayed release (Dexilant) Allergies Allergy/AdvReac Type Severity Reaction Status Date / Time No Known Allergies Allergy Verified 03/17/24 11:31 Review of Systems Review of Systems: Yes all other systems are reviewed and are negative [facility] Past Medical History Attestation statement: The following information was validated with the patient. Source: old records reviewed and nursing notes reviewed Medical History (Updated 03/18/24 @ 00:01 by Robert Stanley) Post-cholecystectomy syndrome Hemorrhoids with complication Dysphagia Candidiasis of mouth and esophagus Odynophagia Surgical History History of laparoscopic cholecystectomy (02/28/22) Hx of laparoscopy History of tonsillectomy History of esophagogastroduodenoscopy (EGD) Hx of colonoscopy Family History Family History Father CVD (cardiovascular disease) Colon polyps Hypercholesteremia Diabetes Mother Thyroid condition CVD (cardiovascular disease) Fibromyalgia Heart problem Hypertension Sister HIV (human immunodeficiency virus infection) Brother No problems noted. Son No problems noted. Son No problems noted. Social History Social History Household Members: Children Alcohol intake: never Patient Tobacco Use Status: Never used Tobacco Advance Directives: No service: No Current occupational status: employed Physical Exam ED Vital Signs: Vital Signs - 24 hr 03/17/24 11:29 03/17/24 14:46 03/17/24 18:50 Temperature 98.6 F 98.2 F Pulse Rate 76 72 70 Respiratory Rate 16 18 20 Blood Pressure 146/67 H 118/74 118/71 Pulse Oximetry 100 100 99 Oxygen Delivery Method Room Air Room Air Room Air 03/17/24 19:00 Temperature 98.2 F Pulse Rate 70 Respiratory Rate 20 Blood Pressure 118/71 Pulse Oximetry 99 Oxygen Delivery Method Room Air BMI result Body Mass Index 29.3 vss Appearance: Alert.? Oriented X3.? No acute distress.? Head: Normocephalic, atraumatic, no step-offs or deformities Eyes: Pupils equal, round and reactive to light.? ENT: Pharynx normal.? Neck: Normal inspection.? Neck supple.? CVS: Normal heart rate and rhythm.? Pulses normal.? Respiratory: No respiratory distress.? Breath sounds normal.? Abdomen: Soft and nontender.? Skin: Skin warm and dry.? Normal skin color.? Normal skin turgor.? Extremities: No lower extremity edema.? No calf ttp. 5/5 strength to bilateral upper and lower extremities Sensative exam: large amount of blood in the vaginal canal. No clots. Dark red. Closed cervix. No cervical motion tenderness Back: No midline tenderness, no C-spine tenderness, full range of motion, no CVA tenderness bilaterally Neuro: Oriented X 3.? No motor deficit.? No sensory deficit. CN 2-12 intact Course Course Course Narrative: RME, this is a rapid medical exam performed by Jesse Hoffman please refer to primary provider for complete H&P- 38-year-old female presents for evaluation of heavy menstrual cycle for the last 2 weeks. She reports feeling dizzy. She has never had a blood transfusion but states ?1 time I was close. ? Patient's vitals are stable, she is not tachycardic or hypotensive. Plan for labs and test Reevaluation(s) Reevaluation #1: CBC with a microcytic anemia appears to be around her baseline. Chemistry with no acute findings requiring intervention. Beta hCG negative. UA clean. Repeat CBC Ordered. US ordered and pending. Time: 15:47 Reevaluation #2: Sign out to [facility] [employer] SWITCHBOARD OPERATOR Reevaluation #3: US/US pelvic and transvaginal IMPRESSION: Normal ultrasound of pelvis. Repeat H and H is stable. At this time feel that she is stable for discharge, outpatient follow-up with her buffing and polishing wheel repairer. Discussed strict return precautions. All questions were answered. Medical Decision Making Medical Decision Making [facility] Narrative: 1527 38-year-old female presents with heavy vaginal bleeding for the past 2.5 weeks hx of this in the past PE large amount of blood in the vaginal canal. No clots. Dark red. Closed cervix. No cervical motion tenderness History and physical exam concerning for uterine fibroids versus endometriosis versus menometrorrhagia versus menorrhagia. Less likely miscarriage, ectopic . Will rule out acute blood loss anemia and other metabolic derangements. Plan- labs, urine, imaging Differential Diagnosis Differential Diagnoses: The differential diagnosis associated with the presentation includes History and physical exam concerning for uterine fibroids versus endometriosis versus menometrorrhagia versus menorrhagia. Less likely miscarriage, ectopic . Will rule out acute blood loss anemia and other metabolic derangements. Admission/Observation Consideration of admission/observation: Escalation of care including admission/observation considered Possible Lab Data [facility] Lab Attestation statement: I reviewed the patient's lab results. 03/17/24 17:58 03/17/24 11:50 Labs: Lab Results 03/17/24 03/17/24 03/17/24 Range/Units 11:48 11:50 17:58 WBC 7.5 8.4 (4.8-10.8) X10*3/uL RBC 4.37 4.15 L (4.20-5.50) X10*6/uL Hgb 11.3 L 10.7 L (12.0-16.0) g/dl Hct 34.0 L 32.0 L (37.0-47.0) % MCV 77.8 L 77.1 L (80.0-98.0) fL MCH 25.9 L 25.8 L (27.0-33.0) pg MCHC 33.2 33.4 (31.0-35.0) g/dl RDW 13.2 13.2 (11.0-16.0) % Plt Count 301 278 (160-400) X10*3/uL MPV 10.4 10.3 (9.4-12.3) fL Immature Gran % (Auto) 0.3 0.2 (0.0-0.4) % Neut % (Auto) 63.2 63.9 (45-73) % Lymph % (Auto) 28.6 29.0 (20-40) % Mcpherson % (Auto) 6.0 5.5 (2-11) % Eos % (Auto) 1.1 0.8 (0-4) % Baso % (Auto) 0.8 0.6 (0-2) % Lymph # (Auto) 2.2 2.4 (1.2-4.9) X10*3/uL Mcpherson # (Auto) 0.5 0.5 (0.1-1.2) X10*3/uL Eos # (Auto) 0.1 0.1 (0.0-0.4) X10*3/uL Baso # (Auto) 0.1 0.1 (0.0-0.2) X10*3/uL Abs Immat Gran (auto) 0.02 0.02 (0.00-0.03) X10*3/uL Absolute Neuts (auto) 4.8 5.4 (2.0-8.3) x10*3/uL Absolute Nucleated RBC 0.000 0.000 (0.0-0.012) X10*3/uL Nucleated RBC % (auto) 0.0 0.0 (0.0-0.2) /100WBC Sodium 142 (135-145) mmol/L Potassium 3.8 (3.3-5.1) mmol/L Chloride 107 (96-108) mmol/L Carbon Dioxide 27 (22-29) mmol/L Anion Gap 12 (12-20) BUN 8 L (9-16) mg/dL Creatinine 0.67 (0.5-1.4) mg/dL Estim Creat Clear Calc 105.1 Estimated GFR > 60 Random Glucose 92 (60-115) mg/dL Calcium 9.4 (8.4-10.2) mg/dL Beta HCG, Quant < 2 mIU/mL Urine Color [place] A Urine Appearance Cloudy Urine pH 5.5 (5.0-9.0) Ur Specific [place] 1.025 (1.005-1.025) Urine Protein Trace (Neg-Trace) mg/dL Urine Glucose (UA) Negative (Negative) mg/dL Urine Ketones Negative (Negative) mg/dL Urine Blood Large (3+) H (Negative) Urine Nitrite Negative (Negative) Ur Leukocyte Esterase Trace H (Negative) Urine RBC >20 H (0-2) /HPF Urine WBC 0-5 (0-5) /HPF Ur Squamous Epith Cells 0-2 (0-2) /HPF Urine Bacteria None Seen (None Seen) Hyaline Casts 0-2 (0-2) /LPF Blood Type O Positive Antibody Screen NEGATIVE Radiology Impression Discussion of test interpretation with radiology: I have reviewed the radiologist's reading. External Record Review External record reviewed: Inpatient record, Office record, Outpatient record, Prior outpatient labs, Prior outpatient radiology, Primary care record and Outside ED record Chronic Conditions Patient?s care impacted by: Other (heavy vaginal bleeding ) Critical Care Time Critical Care Time Critical Care Time: No Discharge Plan Discharge Clinical Impression: Abnormal uterine and vaginal bleeding, unspecified, Microcytic anemia Patient Disposition: Home, Self-Care Additional Instructions: Follow-up closely with your buffing and polishing wheel repairer regarding your heavy menstrual bleeding. Your ultrasound was normal, your blood counts today were stable, do not indicate the need for a blood transfusion. Return back to emergency department any new or worsening symptoms or concerns. Prescriptions: No Action sucralfate [Carafate] 100 mg/mL suspension 10 ml PO QID 90 Days Qty: 3600 1RF dexlansoprazole [Dexilant] 30 mg capsule,biphase delayed releas 30 mg PO .daily 90 Days Qty: 90 1RF acetaminophen [Tylenol Extra Strength] 500 mg tablet 1,000 mg PO QID PRN (Reason: fever or pain) Qty: 14 0RF famotidine [Pepcid] 20 mg tablet 20 mg PO BID 10 Days Qty: 20 0RF clonazepam 0.5 mg tablet 0.5 mg PO DAILY gabapentin 100 mg capsule 100 mg PO TID fluvoxamine 50 mg tablet 50 mg PO BEDTIME albuterol sulfate [Ventolin HFA] 90 mcg/actuation HFA aerosol inhaler 2 puff inhalation Q4H PRN (Reason: wheezing) Referrals: Jah Root MD [Primary Care Provider] - Interventions: ED Discharge Assessment Last Done: 03/17/24 19:00 Discharge Date/Time: 03/17/24 19:01 Print Language: Greenlandic
--- OUTSIDE RECORDS SUMMARY | 2024-03-17 11:54 | XMS_ITS | Continuity of Care Document ---
Author Organization [facility] Address [address] [place] [address] [address] [place] [address]- Care Team Providers Care Operations Research Engineer Name Role Phone Eunice Warner MD Primary Care Physician Encounter [facility] [place] Date(s): 04/05/21 - 05/05/21 [facility] [address] [place], [place] [address] Allergies, Adverse Reactions, Alerts Substance Reaction Severity Status NKA Active Medications Golytely - oral powder for reconstitution See Instructions, split prep, # 4,000 mL, 0 Refills, Maintenance, 06/14/20 16:27:00 EDT, REC Powder, [id number], split prep, 171, cm, 06/14/20 15:37:00 EDT, Height Start Date: 06/14/20 Status: Ordered omeprazole 40 mg oral enteric coated capsule 1 capsule = 40 mg, By Mouth, 2 times a day, # 60 capsule, 0 Refills, Maintenance, 06/14/20 16:27:00EDT, EC Capsule, [id number], 171, cm, 06/14/20 15:37:00 EDT, Height Start Date: 06/14/20 Stop Date: 07/14/20 Status: Ordered PriLOSEC OTC 20 mg oral delayed release tablet 1 tablet = 20 mg, By Mouth, 2 times a day, # 30 tablet, 0 Refills, Maintenance, EC Tablet Start Date: 08/04/13 Status: Ordered Xanax 0.5 mg oral tablet 1 tablet = 0.5 mg, By Mouth, 2 times a day, 0 Refills, Maintenance, 03/08/14 14:19:19 Start Date: 03/08/14 Status: Ordered Social History Social History Type Response Smoking Status Never smoker entered on: 12/29/13 Sex
--- OUTSIDE RECORDS SUMMARY | 2024-03-17 11:54 | XMS_ITS | Continuity of Care Document ---
Author Organization [facility] Address [address] [place] [address]- Care Team Providers Care Company Miner Blasting Name Role Phone Eunice Warner MD Primary Care Physician Encounter [facility] [place] Date(s): 06/13/21 - 07/13/21 [facility] [address] [place] [address]- Attending Physician: Kevin Van Admitting Physician: Kevin Van Referring Physician: Kevin Van Allergies, Adverse Reactions, Alerts Substance Reaction Severity [...]
--- OUTSIDE RECORDS SUMMARY | 2024-03-17 11:54 | XMS_ITS | Continuity of Care Document ---
Author Organization [facility] Address [address] [place] [address]- Care Team Providers Care Wedger Machine Name Role Phone Mango Dejesus MD, Jah Primary Care Phys ician Encounter [facility] Date(s): 03/20/22 - 03/20/[address] [id number] Discharge Disposition: A-D/C Home Attending Physician: Scott Sevilla MD Admitting Physician: Scott Sevilla MD Referring Physician: Scott Sevilla MD Allergies, Adverse Reactions, Alerts No Known Allergies Medications Amitiza 8 mcg oral capsule 1 capsule = 8 mcg, By Mouth, 2 times a day, Stop prior Linzess, # 60 tablet, 2 Refills, Maintenance, 12/12/21 14:06:00 EDT, Capsule, [id number], Partial fill upon patient request if the prescription is for a schedule II opioid drug., 171, cm,... Start Date: 12/12/21 Status: Ordered dicyclomine 10 mg oral capsule 1 capsule = 10 mg, By Mouth, 4 times a day, Take as needed up to 4 times a day for pain/spasm, # 120 capsule, 1 Refills, Maintenance, 12/12/21 14:06:00 EDT, [id number], Partial fill upon patient request if the prescription is for a schedule II... Start Date: 12/12/21 Stop Date: 02/10/22 Status: Ordered esomeprazole 40 mg oral enteric coated capsule 1 capsule = 40 mg, By Mouth, Daily, Stop prior PPI/famotidine, # 30 capsule, 1 Refills, Maintenance, 12/12/21 14:06:00 EDT, [id number], Partial fill upon patient request if the prescription is for a schedule II opioid drug., 171, cm, 12/12/21... Start Date: 12/12/21 Status: Ordered Linzess 145 mcg oral capsule 1 capsule = 145 mcg, By Mouth, Daily, # 30 capsule, 6 Refills, Maintenance, 08/24/21 15:28:00 EST, [facility]/pharmacy #[id number], Partial fill upon patient request if the prescription is for a schedule II opioid drug., 171, cm, 08/24/21 14:20:00 EST, Height Start Date: 08/24/21 Stop Date: 03/22/22 Status: Ordered Readi-Cat 2 oral suspension See Instructions, 2 bottles as per radiology recommendations 1 in the evening before when the morning of CT, # 2 pack/packet, 0 Refills, Maintenance, 09/15/21 15:27:00 EST, [id number], Partial fill upon patient request if the prescription is f... Start Date: 09/15/21 Status: Ordered Xanax 0.5 mg oral tablet 1 tablet = 0.5 mg, By Mouth, 2 times a day, 0 Refills, Maintenance, 03/08/14 14:19:19 Start Date: 03/08/14 Status: Ordered Vital Signs Most recent to oldest [Reference Range]: 1 2 3 Height 160 cm (03/20/22 9:53 AM) Weight 72.5 kg (03/20/22 9:53 AM) Oxygen Saturation [94-100 %] 98 % (03/20/22 11:09 AM) 99 % (03/20/22 11:04 AM) 94 % (03/20/22 10:45 AM) Pulse Rate [55-90 bpm] 99 bpm *H* (03/20/22 9:53 AM) Body Mass Index [18.5-24.99] 28.32 *H* (03/20/22 9:53 AM) Blood Pressure [90-138/55-84 mm Hg] 121/77mm Hg (03/20/22 11:23 AM) 124/74mm Hg (03/20/22 11:09 AM) 114/74mm Hg (03/20/22 11:04 AM) Respiratory Rate [16-30 br/min] 22 br/min (03/20/22 11:23 AM) 16 br/min (03/20/22 11:09 AM) 28 br/min (03/20/22 11:04 AM) Temperature [96.8-100.4 DegF] 98 DegF (03/20/22 11:04 AM) 98.2 DegF (03/20/22 9:53 AM) Mode of Delivery (Oxygen) Room air (03/20/22 11:09 AM) Room air (03/20/22 11:04 AM) Room air (03/20/22 10:45 AM) Blood pressure sites Arm, left (03/20/22 11:23 AM) Arm, left (03/20/22 11:09 AM) Arm, left (03/20/22 10:45 AM) Temperature Route Temporal (03/20/22 11:04 AM) Temporal (03/20/22 9:53 AM) Weight Obtained Via Patient/family state d (03/20/22 9:53 AM) Social History Social History Type Response Smoking Status Never smoker entered on: 12/29/13 Sex
--- OUTSIDE RECORDS SUMMARY | 2024-03-17 11:54 | XMS_ITS | Continuity of Care Document ---
Author Organization [facility] Address [address] [place] [address]- Care Team Providers Care Chin Strap Sewer Name Role Phone Eunice Warner MD Primary Care Physician Encounter [facility] [place] Date(s): 06/14/20 - 07/14/20 [facility] [address] [place] [id number] Attending Physician: Admtr, Ar8 Admitting Physician: Admtr, Ar8 Referring Physician: Admtr, Ar8 Allergies, Adverse Reactions, Alerts Substance Reaction Severity [...]
--- OUTSIDE RECORDS SUMMARY | 2024-03-17 11:54 | XMS_ITS | Continuity of Care Document ---
Author Organization [facility] Address [address] [place] [address]- Care Team Providers Care Registered Dietitian Name Role Phone Mango Dejesus MD, Jah Primary Care Phys ician En[place] [facility] [place] Date(s): 08/29/21 - 03/24/[address] [id number] Attending Physician: Elio Roman MD Admitting Physician: Elio Roman MD Allergies, Adverse Reactions, Alerts No Known [...] capsule, 6 Refills, Maintenance, 08/24/21 15:28:00 EST, [id number], Partial fill upon patient [...]
--- OUTSIDE RECORDS SUMMARY | 2024-03-17 11:54 | XMS_ITS | Continuity of Care Document ---
Author Organization [facility] Address [address] [place] [address]- Care Team Providers Care Supply Teacher Name Role Phone Mango Dejesus MD, Jah [facility] [place] Date(s): 04/04/22 - 04/04/[address] [address] Discharge Disposition: A-D/C Home Attending Physician: Amelia Rojo MD Admitting Physician: Amelia Rojo MD Referring Physician: Floridalma Green MD Allergies, Adverse Reactions, Alerts No Known [...] capsule, 6 Refills, Maintenance, 08/24/21 15:28:00 EST, [facility]/pharmacy #[id number], Partial fill upon patient request if [...]
--- OUTSIDE RECORDS SUMMARY | 2024-03-17 11:54 | XMS_ITS | Continuity of Care Document ---
Author Organization [facility] Address [address] [address]- Care Team Providers Care Vice President Planning Name Role Phone Eunice Warner MD Primary Care Physician [phone] [place] [facility] [place] Date(s): 04/05/21 - 05/05/21 [facility] [address] [id number] Allergies, Adverse Reactions, Alerts Substance Reaction [...]
--- OUTSIDE RECORDS SUMMARY | 2024-03-17 11:54 | XMS_ITS | Continuity of Care Document ---
Author Organization [facility] Address [address] [place] [address]- Care Team Providers Care Transition Program Manager Name Role Phone Eunice Warner MD Primary Care Physician [phone] Encounter [facility] [place] [facility] [id number] Date(s): 12/22/20 - 07/13/21 [facility] [address] [place] [address]- Attending Physician: Amelia Rojo MD Admitting Physician: Amelia Rojo MD Referring Physician: Eunice Warner MD Allergies, Adverse Reactions, Alerts Substance Reaction Severity [...]
[2024-03-17 12:07] LABS: MANUAL DIFF FLAG NO
[2024-03-17 12:08] LABS: Basophils Absolute Auto 0.1 X10*3/uL (0.0-0.2); Basophils Percent Auto 0.8 % (0-2); Eosinophils Absolute Auto 0.1 X10*3/uL (0.0-0.4); Eosinophils Percent Auto 1.1 % (0-4); Hemoglobin 11.3 g/dl (12.0-16.0); Imm Gran Abs Auto 0.02 X10*3/uL (0.00-0.03); Imm Gran Pct Auto 0.3 % (0.0-0.4); Lymphocytes Absolute Auto 2.2 X10*3/uL (1.2-4.9); Lymphocytes Percent Auto 28.6 % (20-40); Mean Corpuscular HGB Conc 33.2 g/dl (31.0-35.0); Mean Corpuscular Hemoglobin 25.9 pg (27.0-33.0); Mean Corpuscular Volume 77.8 fL (80.0-98.0); Mean Platelet Volume 10.4 fL (9.4-12.3); Monocytes Absolute Auto 0.5 X10*3/uL (0.1-1.2); Neutrophils Absolute Auto 4.8 x10*3/uL (2.0-8.3); Neutrophils Percent Auto 63.2 % (45-73); Platelet Count 301 X10*3/uL (160-400); Red Blood Count 4.37 X10*6/uL (4.20-5.50); Red Cell Distribution Width 13.2 % (11.0-16.0); White Blood Count 7.5 X10*3/uL (4.8-10.8)
[2024-03-17 12:12] LABS: Bacteria Urine None Seen (None Seen); Hyaline Casts Urine 0-2 /LPF (0-2); RBC Urine >20 /HPF (0-2); Squamous Epithelial Cell Urine 0-2 /HPF (0-2); WBC Urine 0-5 /HPF (0-5)
[2024-03-17 12:16] LABS: Appearance Urine Cloudy; Color Urine Orange; Glucose Urine UA Negative (Negative); Leukocyte Esterase Urine Trace (Negative); Nitrite Urine Negative (Negative); PH 5.5 (5.0-9.0); Specific Gravity - Urine 1.025 (1.005-1.025); UMIC TRIGGER UACC YES; Urine Blood Large (3+) (Negative); Urine Ketones Negative (Negative); Urine Protein Trace mg/dL (Neg-Trace)
[2024-03-17 12:25] LABS: Anion Gap 12 (12-20); Blood Urea Nitrogen 8 mg/dL (9-16); Calcium 9.4 mg/dL (8.4-10.2); Carbon Dioxide 27 mmol/L (22-29); Chloride 107 mmol/L (96-108); Creatinine Clr Calc Pharmacy 105.1; Estimated Glomerular Filt Rate > 60; Glucose Random 92 mg/dL (60-115); Potassium 3.8 mmol/L (3.3-5.1); Sodium 142 mmol/L (135-145)
[2024-03-17 12:32] LABS: HCG Quantitative < 2 mIU/mL
[2024-03-17 14:46] VITALS: BP 118/74; PULSE 72; RESP 18; O2SAT 100
[2024-03-17 18:03] LABS: MANUAL DIFF FLAG NO
[2024-03-17 18:25] LABS: Basophils Absolute Auto 0.1 X10*3/uL (0.0-0.2); Basophils Percent Auto 0.6 % (0-2); Eosinophils Absolute Auto 0.1 X10*3/uL (0.0-0.4); Eosinophils Percent Auto 0.8 % (0-4); Hemoglobin 10.7 g/dl (12.0-16.0); Imm Gran Abs Auto 0.02 X10*3/uL (0.00-0.03); Imm Gran Pct Auto 0.2 % (0.0-0.4); Lymphocytes Absolute Auto 2.4 X10*3/uL (1.2-4.9); Mean Corpuscular HGB Conc 33.4 g/dl (31.0-35.0); Mean Corpuscular Hemoglobin 25.8 pg (27.0-33.0); Mean Corpuscular Volume 77.1 fL (80.0-98.0); Mean Platelet Volume 10.3 fL (9.4-12.3); Monocytes Absolute Auto 0.5 X10*3/uL (0.1-1.2); Monocytes Percent Auto 5.5 % (2-11); Neutrophils Absolute Auto 5.4 x10*3/uL (2.0-8.3); Neutrophils Percent Auto 63.9 % (45-73); Platelet Count 278 X10*3/uL (160-400); Red Blood Count 4.15 X10*6/uL (4.20-5.50); Red Cell Distribution Width 13.2 % (11.0-16.0); White Blood Count 8.4 X10*3/uL (4.8-10.8)
[2024-03-17 18:50] VITALS: BP 118/71; PULSE 70; RESP 20; TEMP 36.8; O2SAT 99
[2024-03-17 19:00] VITALS: BP 118/71; PULSE 70; RESP 20; TEMP 36.8; O2SAT 99
== END 2024-03-17 19:01 | disposition home or self-care (01) ==
PROVIDERS: Physician Assistant; Emergency Provider Emergency Medicine; PCP Internal Medicine
DX: N93.9 Abnormal uterine and vaginal bleeding, unspecified (principal); D53.9 Nutritional anemia, unspecified; R42 Dizziness and giddiness; R51.9 Headache, unspecified; R11.0 Nausea
CPT/HCPCS: 36415; 76830; 76856; 80048; 81001; 84702; 85025; 86850; 86900; 86901; 99283; 99284

== ENCOUNTER 2024-07-23 13:21 | Outpatient (REF) | payer MEDICAID, SELFPAY ==
[2024-07-23 16:08] LABS: MANUAL DIFF FLAG NO
[2024-07-23 16:22] LABS: Basophils Absolute Auto 0.1 X10*3/uL (0.0-0.2); Basophils Percent Auto 0.7 % (0-2); Eosinophils Absolute Auto 0.1 X10*3/uL (0.0-0.4); Eosinophils Percent Auto 0.9 % (0-4); Hemoglobin 12.6 g/dl (12.0-16.0); Imm Gran Abs Auto 0.04 X10*3/uL (0.00-0.03); Imm Gran Pct Auto 0.4 % (0.0-0.4); Lymphocytes Absolute Auto 2.8 X10*3/uL (1.2-4.9); Lymphocytes Percent Auto 29.2 % (20-40); Mean Corpuscular HGB Conc 32.3 g/dl (31.0-35.0); Mean Corpuscular Hemoglobin 23.6 pg (27.0-33.0); Mean Corpuscular Volume 72.9 fL (80.0-98.0); Mean Platelet Volume 10.3 fL (9.4-12.3); Monocytes Absolute Auto 0.5 X10*3/uL (0.1-1.2); Monocytes Percent Auto 5.5 % (2-11); Neutrophils Absolute Auto 6.1 x10*3/uL (2.0-8.3); Neutrophils Percent Auto 63.3 % (45-73); Platelet Count 286 X10*3/uL (160-400); Red Blood Count 5.35 X10*6/uL (4.20-5.50); Red Cell Distribution Width 20.4 % (11.0-16.0); White Blood Count 9.7 X10*3/uL (4.8-10.8)
[2024-07-23 18:28] LABS: Folate 7.3 ng/mL (> or = 4.0); Vitamin B12 355 pg/mL (200-900)
[2024-07-23 18:45] LABS: Alanine Aminotransferase 13 U/L (0-31); Albumin Level 4.3 g/dL (3.5-5.0); Alkaline Phosphatase 83 U/L (39-117); Anion Gap 10 (12-20); Aspartate Amino Transferase 21 U/L (5-31); Bilirubin Total 0.5 mg/dL (0.0-1.0); Blood Urea Nitrogen 9 mg/dL (9-16); Calcium 8.9 mg/dL (8.4-10.2); Carbon Dioxide 26 mmol/L (22-29); Chloride 106 mmol/L (96-108); Cholesterol 144 mg/dL (<200); Estimated Glomerular Filt Rate > 60; Glucose Random 80 mg/dL (60-115); HDL Cholesterol 32 mg/dL (>40); Iron 52 mcg/dL (30-160); LDL Cholesterol Calculated 74 mg/dL (<100); Percent Iron Saturation 18 % (15-50); Potassium 4.3 mmol/L (3.3-5.1); Sodium 138 mmol/L (135-145); Total Iron Binding Capacity 295 mcg/dL (228-428); Total Protein 7.4 g/dL (6.5-8.0); Triglycerides 191 mg/dL (<150); Unsaturated Iron Binding 243 ug/dL
[2024-07-23 19:05] LABS: TSH reflex Free T4 1.53 uIU/mL (0.32-4.0)
== END 2024-07-23 13:22 | disposition home or self-care (01) ==
LOC: HO.HHCL 13:21
PROVIDERS: Visit Provider Internal Medicine
DX: D50.0 Iron deficiency anemia secondary to blood loss (chronic) (principal); R53.82 Chronic fatigue, unspecified
CPT/HCPCS: 36415; 80053; 80061; 82607; 82746; 83540; 84443; 85025

== ENCOUNTER 2024-08-13 12:47 | Outpatient (REF) | payer MEDICAID, SELFPAY ==
--- NOTE | ~2024-08-13 | US_ITS ---
EXAMINATION: MM DIAGNOSTIC DIGITAL BREAST TOMOSYNTHESIS, BILATERAL Limited left breast ultrasound. CLINICAL INFORMATION: Left breast palpable lump upper outer breast. Patient has a history of bilateral benign needle core biopsies of outside institution. COMPARISON: Mammography: Comparison is made with relevant prior exams. TECHNIQUE: Digital breast mammography with tomosynthesis is performed in both the craniocaudal and mediolateral oblique views along with computer-aided detection (CAD). Limited left breast ultrasound. FINDINGS: The breasts are heterogeneously dense, which may obscure small masses (ACR BI-RADS breast composition Category c). BPD palpable marker in the upper-outer breast without underlying abnormality. Bilateral marker clips from previous benign needle core biopsies. There are no significant masses, abnormal calcifications, or other abnormalities. Targeted color Doppler ultrasound left breast upper-outer quadrant near the patient's palpable lump demonstrates normal fibroglandular breast tissue. Results are provided to the patient at time of visit by the technologist. US/US breast LT limited mamm only IMPRESSION: No mammographic or sonographic abnormality to account for the patient's palpable lump. Recommend clinical evaluation and follow-up. ASSESSMENT: BI-RADS BI-RADS 1 - Negative RECOMMENDATION: 1 year F/U This patient's information was entered into a reminder system with a target due date for their next mammogram. Electronically signed by: Amanda Santana DO 08/13/2024 02:47 PM RADHA CARTER
== END 2024-08-13 12:48 | disposition home or self-care (01) ==
LOC: HO.MAMMO 12:47
PROVIDERS: PCP Internal Medicine; Visit Provider Internal Medicine
DX: N63.21 Unspecified lump in the left breast, upper outer quadrant (principal); R92.323 Mammographic fibroglandular density, bilateral breasts
CPT/HCPCS: 76642; 77062; 77066

== ENCOUNTER → 2024-08-13 13:15 | Outpatient (BNV) | payer MEDICAID, SELFPAY | PROVIDERS: PCP Internal Medicine; Visit Provider Internal Medicine | DX: N63.21 Unspecified lump in the left breast, upper outer quadrant (principal); R92.333 Mammographic heterogeneous density, bilateral breasts; Z97.8 Presence of other specified devices | CPT/HCPCS: 76642; 77062; 77066 ==

== ENCOUNTER 2024-10-05 10:36 | Outpatient (REF) | payer MEDICAID, SELFPAY ==
[2024-10-05 14:29] LABS: MANUAL DIFF FLAG NO
[2024-10-05 14:37] LABS: Basophils Absolute Auto 0.1 X10*3/uL (0.0-0.2); Basophils Percent Auto 0.7 % (0-2); Eosinophils Absolute Auto 0.1 X10*3/uL (0.0-0.4); Eosinophils Percent Auto 0.6 % (0-4); Hematocrit 39.6 % (37.0-47.0); Hemoglobin 13.1 g/dl (12.0-16.0); Imm Gran Abs Auto 0.03 X10*3/uL (0.00-0.03); Imm Gran Pct Auto 0.3 % (0.0-0.4); Lymphocytes Absolute Auto 2.3 X10*3/uL (1.2-4.9); Lymphocytes Percent Auto 25.9 % (20-40); Mean Corpuscular HGB Conc 33.1 g/dl (31.0-35.0); Mean Corpuscular Hemoglobin 25.9 pg (27.0-33.0); Mean Corpuscular Volume 78.3 fL (80.0-98.0); Mean Platelet Volume 10.6 fL (9.4-12.3); Monocytes Absolute Auto 0.4 X10*3/uL (0.1-1.2); Neutrophils Absolute Auto 5.9 x10*3/uL (2.0-8.3); Neutrophils Percent Auto 67.5 % (45-73); Platelet Count 272 X10*3/uL (160-400); Red Blood Count 5.06 X10*6/uL (4.20-5.50); Red Cell Distribution Width 13.4 % (11.0-16.0); White Blood Count 8.8 X10*3/uL (4.8-10.8)
[2024-10-05 15:09] LABS: TSH reflex Free T4 2.22 uIU/mL (0.32-4.0)
[2024-10-05 15:17] LABS: Folate 5.2 ng/mL (> or = 4.0); Vitamin B12 245 pg/mL (200-900)
--- OUTSIDE RECORDS SUMMARY | 2024-10-05 15:21 | XMS_ITS | Encounter Summary ---
Author Organization [employer] Address [address] [facility] [address] [place] [address] Care Team Providers Care Utility Forester Name Role Phone Jah Root MD Primary Care Prov ider Reason for Visit * Reason Onset Date Comments Appointment Request 09/15/2024 Encounter Details Date Type Department Care Team ([facility] st Contact Info) Description 09/15/2024 Telephone [facility] MEDICINE [address] [place] [address] Jah Root MD [address] [place], [place] [phone] Appointment Request Social History Tobacco Use Types Packs/Day Years Used Date Smoking Tobacco: Never Smokeless Tobacco: Never Alcohol Use Standard Drinks/Week Comments Never 0 (1 standard drink = 0.6 oz pur e alcohol) Depression Answer Date Recorded Patient Health Questionnaire-9 Score 8 10/30/2023 Patient Health Questionnaire-9 Score 8 10/30/2023 Last PHQ-9: Questionnaire Data Not on file 0 10/30/2023 Housing Stability Answer Date Recorded What is your housing situation today? I have irineo shaffer 10/30/[address] you li ve. Do you have problems with any of the following? None of the above 10/30/2023 Food Insecurity Answer Date Recorded Within the past 12 months, y ou worried that your food would run out before you got money to buy more: Never True 10/30/2023 Within the past 12 months,th e food you bought just didn't last and you didn't have enough money to get more: Never True Transportation Answer Date Recorded In the past 12 months, has l ack of transportation kept you from medical appts, meetings, work or from getting things needed for daily living? No 10/30/2023 Utilities Answer Date Recorded In the past 12 months, has t he electric, gas, oil or water company threatened to shut off services in your home? No 10/30/2023 Depression Answer Date Recorded Patient Health Questionnaire-2 Score 2 10/30/2023 Comments Unknown Sex and Gender Information Value Date Recorded Sex Assigned at Female 07/09/2022 10:14 AM EDT Legal Sex Female 10:14 AM EDT Gender Identity Female 07/09/2022 10:14 AM EDT Sexual Orientation Straight 07/09/2022 10 :14 AM EDT documented as of this encounter Miscellaneous Notes * Telephone Encounter - Sukhdev Pop - 09/15/2024 9:08 AM EST Tc from pt looking to reschedule Derm appt due to transportation issues. documented in this encounter Plan of Treatment Upcoming Encounters Date Type Department Care Team (Late st Contact Info) Description 11/10/2024 11:30 AM EST Office Visit [facility] MED & PEDS [address] [place] [address] Bhupinder Cifuentes MD [address] [place] [address] documented as of this encounter Visit Diagnoses Not on filedocumented in this encounter Additional Health Concerns Assessment Noted Time PHQ-9 Depression Total Score: 8 10/30/19 24 9:42 AM EST documented as of this encounter Care Teams Utility Forester Relationship Specialty Start Date End Date Jah Root MD [address] [place] [address] PCP - General Internal Medicine 01/26/20 documented as of this encounter
--- OUTSIDE RECORDS SUMMARY | 2024-10-05 15:21 | XMS_ITS | Encounter Summary ---
Author Organization [employer] Address [address] [facility] [address] [place] [address] Care Team Providers Care Inspector Fibrous Wallboard Name Role Phone Jah Root MD Primary Care Prov ider Reason for Visit * Reason Onset Date Comments FYI 09/30/2024 Encounter Details Date Type Department Care Team ([facility] st Contact Info) Description 09/30/2024 Telephone [facility] MEDICINE [address] [place] [address] Jah Root MD [address] [place], [place] [phone] Social History Tobacco Use Types Packs/Day Years [...] encounter Miscellaneous Notes * Telephone Encounter - Jazmin Landry RN - 10/01/2024 10:52 AM EST MRI ABD completed 09/20/24 recommended Thoracic spine MRI with and without contrast for further evaluation of findings. T/C to pt to schedule f/u with pcp. No answer, v/m left to return call to [facility] nurses. * Telephone Encounter - Nicky Phillips - 09/30/2024 10:01 AM EST Tc from pt notifying she got a CT-Scan in [facility] as provider in facility inform to follow up with PCP as in the CT-Scan with contrast it came out with a lump on the side of the spine. documented in this encounter Plan of Treatment Upcoming Encounters Date Type Department Care Team (Late st Contact Info) Description 11/10/2024 11:30 AM EST Office Visit [facility] MED & PEDS [address] [place] [address] Bhupinder Cifuentes MD [address] [place] [address] documented as of this encounter Visit Diagnoses Not on filedocumented in this encounter Additional Health Concerns Assessment Noted Time PHQ-9 Depression Total Score: 8 10/30/19 24 9:42 AM EST documented as of this encounter Care Teams Inspector Fibrous Wallboard Relationship Specialty Start Date End Date Jah Root MD [address] [place] [id number] PCP - General Internal Medicine 01/26/20 documented as of this encounter
--- OUTSIDE RECORDS SUMMARY | 2024-10-05 15:21 | XMS_ITS | Encounter Summary ---
Author Organization [employer] Address [address] [facility] [address] [place] [address] Care Team Providers Care Book Binder Name Role Phone Jah Root MD Primary Care Prov ider Encounter Details Date Type Department Care Team (Late st Contact Info) Description 08/28/2024 Orders Only [facility] MED & PEDS [address] [place], [place] [phone] ProviderLalit MD Social History Tobacco Use Types Packs/Day Years [...] AM EDT documented as of this encounter Plan of Treatment Upcoming Encounters Date Type Department Care Team (Late st Contact Info) Description 11/10/2024 11:30 AM EST Office Visit [facility] MED & PEDS [address] [place] [address] Bhupinder Cifuentes MD [address] [place] [address] documented as of this encounter Procedures Procedure Name Priority Date/Time Associated Diagnosis Comments HM COLONOSCOPY Routine 08/26/2024 10:07 AM EST documented in this encounter Results * Hm Colonoscopy (08/26/2024 10:07 AM EST) Historical Provider HEALTH MAINTENANCE Final Result documented in this encounter Visit Diagnoses Not on filedocumented in this encounter Additional Health Concerns Assessment Noted Time PHQ-9 Depression Total Score: 8 10/30/19 24 9:42 AM EST documented as of this encounter Care Teams Book Binder Relationship Specialty Start Date End Date Jah Root MD [address] [place] [address] PCP - General Internal Medicine 01/26/20 documented as of this encounter
--- OUTSIDE RECORDS SUMMARY | 2024-10-05 15:21 | XMS_ITS | Encounter Summary ---
Author Organization [employer] Address [address] [facility] [address] [place] [address] Care Team Providers Care Die Engraving Supervisor Name Role Phone Jah Root MD Primary Care Prov ider Reason for Visit * Reason Onset Date Comments No Show 09/15/2024 Encounter Details Date Type Department Care Team ([facility] st Contact Info) Description 09/15/2024 Telephone [facility] MED & PEDS [address] [place], [place] [phone] Bhupinder Cifuentes MD [address] [place] [address] No Show Social History Tobacco Use Types Packs/Day Years [...] encounter Miscellaneous Notes * Telephone Encounter - Manolo Bell - 09/15/2024 9:56 AM EST No Show 09/15/24 for f/u hairloss documented in this encounter Plan of Treatment Upcoming Encounters Date Type Department Care Team (Late st Contact Info) Description 11/10/2024 11:30 AM EST Office Visit [facility] MED & PEDS [address] [place] [address] Bhupinder Cifuentes MD [address] [place] [address] documented as of this encounter Visit Diagnoses Not on filedocumented in this encounter Additional Health Concerns Assessment Noted Time PHQ-9 Depression Total Score: 8 10/30/19 24 9:42 AM EST documented as of this encounter Care Teams Die Engraving Supervisor Relationship Specialty Start Date End Date Jah Root MD [address] [place] [address] PCP - General Internal Medicine 01/26/20 documented as of this encounter
--- OUTSIDE RECORDS SUMMARY | 2024-10-05 15:22 | XMS_ITS | Encounter Summary ---
Author Organization [employer] Address [address] [facility] [address] [place] [address] Care Team Providers Care Property Investor Name Role Phone Jah Root MD Primary Care Prov ider Reason for Visit * Reason Onset Date Comments Nurse Triage 10/02/2024 Encounter Details Date Type Department Care Team ([facility] st Contact Info) Description 10/02/2024 Telephone [facility] MEDICINE [address] [place] [address] Jah Root MD [address] [place], [place] [phone] Nurse Triage Social History Tobacco Use Types Packs/Day Years [...] encounter Miscellaneous Notes * Telephone Encounter - Edith Mcelroy RN - 10/02/2024 3:56 PM EST Called pt. Via [employer] water resources project manager [phone] [address]. Pt. States that she has been feeling very dizzy x 2days. Pt. Was unable to sleep last night and pt. States that her hands and feet get tingly and she has been nauseous today. No HX. Of HTN or Diabetes according to pt. No chest pain, no SOB, no fever,no extremity weakness, no double vision or headache and no vomiting or diarrhea. Advised pt. Can beseen in office at [facility] tomorrow from 9am-1230 or pt. Can go to ED if sx. Worsen. Advised pt. To increase water intake and made appt. For 9am in WIC at [facility] for tomorrow 10/03/24 per pt. Request. Protocol Used: Dizziness (Adult) Protocol-Based Disposition: See in Office or Video Visit Today Video visit offer not recorded Positive Triage Questions: * Moderate dizziness (e.g., interferes with normal activities) (Exception: Dizziness caused by heatexposure, sudden standing, or poor fluid intake.) * Patient wants to be seen * All higher-acuity triage questions were negative Care Advice Discussed: * Drink Fluids * Lie Down and Rest * Cool Off * Telephone Encounter - Malia Barcenas 10/02/2024 3:19 PM EST Symptoms: Nausea But No Vomiting, Numbness, Dizziness Outcome: Schedule an urgent appointment (within 1 hour) or talk to a nurse or provider soon Reason: Started within the past 3 days ( Numbness on hands and sometimes on legs.) The caller accepted this outcome. [phone] (Afghan) documented in this encounter Plan of Treatment Upcoming Encounters Date Type Department Care Team (Late st Contact Info) Description 11/10/2024 11:30 AM EST Office Visit [facility] MED & PEDS [address] [place] [address] Bhupinder Cifuentes MD [address] [place] [address] documented as of this encounter Visit Diagnoses Not on filedocumented in this encounter Additional Health Concerns Assessment Noted Time PHQ-9 Depression Total Score: 8 10/30/19 24 9:42 AM EST documented as of this encounter Care Teams Property Investor Relationship Specialty Start Date End Date Jah Root MD [address] [place] [address] PCP - General Internal Medicine 01/26/20 documented as of this encounter
--- OUTSIDE RECORDS SUMMARY | 2024-10-05 15:22 | XMS_ITS | Encounter Summary ---
Author Organization [email or web address] Address [address] [facility] [address] [place] [address] Care Team Providers Care Videotape Editor Name Role Phone Jah Root MD Primary Care Prov ider Reason for Visit * Reason Onset Date Comments Results 09/10/2023 Encounter Details Date Type Department Care Team ([facility] st Contact Info) Description 09/10/2023 Telephone [facility] MED & PEDS [address] [place], [place] [phone] Jah Root MD [address] [place], [place] [phone] Results Social History Tobacco Use Types Packs/Day Years Used Date Smoking Tobacco: Never Smokeless Tobacco: Never Alcohol Use Standard Drinks/Week Comments Never 0 (1 standard drink = 0.6 oz pur e alcohol) Depression Answer Date Recorded Patient Health Questionnaire-9 Score 10 10/22/2022 Housing Stability Answer Date Recorded What is your housing situation today? I have irineo shaffer 07/10/[address] you li ve. Do you have problems with any of the following? None of the above 07/10/2023 Food Insecurity Answer Date Recorded Within the past 12 months, y ou worried that your food would run out before you got money to buy more: Never True 07/10/2023 Within the past 12 months,th e food you bought just didn't last and you didn't have enough money to get more: Never True 09/2022 Transportation Answer Date Recorded In the past 12 months, has l ack of transportation kept you from medical appts, meetings, work or from getting things needed for daily living? No 07/10/2023 Utilities Answer Date Recorded In the past 12 months, has t he electric, gas, oil or water company threatened to shut off services in your home? No 07/10/2023 Depression Answer Date Recorded Patient Health Questionnaire-2 Score 6 10/22/2022 Comments Unknown Sex and Gender Information Value Date Recorded Sex Assigned at Female 07/09/2022 10:14 AM EDT Legal Sex Female 10:14 AM EDT Gender Identity Female 07/09/2022 10:14 AM EDT Sexual Orientation Straight 07/09/2022 10 :14 AM EDT documented as of this encounter Miscellaneous Notes * Telephone Encounter - Monica Bell RN - 09/24/2023 1:03 PM EST Placed call to pt and informed of normal lab results. Pt reminded to keep appt with provider next week to discuss further POC. Pt verbalized understanding and agrees with plan. * Telephone Encounter - Britt Muhammad - 09/24/2023 11:22 AM EST Tc from pt in regards below, pt is requesting a call back. * Telephone Encounter - Miguel Davalos - 09/10/2023 9:21 AM EST TC from pt requesting call back regarding Results. Type of results: Labs Date when done: 08/26/23 Facility: [facility] documented in this encounter Plan of Treatment Upcoming Encounters Date Type Department Care Team ([facility] st Contact Info) Description 11/10/2024 11:30 AM EST Office Visit [facility] MED & PEDS [address] [place], [place] [phone] Bhupinder Cifuentes MD [address] [place], [place] [phone] documented as of this encounter Visit Diagnoses Not on filedocumented in this encounter Additional Health Concerns Assessment Noted Time PHQ-9 Depression Total Score: 10 023 2:28 PM EST documented as of this encounter Care Teams Videotape Editor Relationship Specialty Start Date End Date Jah Root MD [address] [place] [address] PCP - General Internal Medicine 01/26/20 documented as of this encounter
--- OUTSIDE RECORDS SUMMARY | 2024-10-05 15:22 | XMS_ITS | Clinical Summary ---
Author Organization [employer] Address [address] [place] [address] Care Team Providers Care Insurance Defense Paralegal Name Role Phone Jah Root MD Primary Care Prov ider Allergies No known active allergies Medications clonazePAM (KlonoPIN) 0.5 MG tablet Take 1 tablet by mouth in the morning and 1 tablet in the evening. Active cholecalciferol (Vitamin D-3) 25 MCG (1000 UT) tablet Take 1 tablet by mouth 1 (one) time each day. 2 Active albuterol 108 (90 Base) MCG/ACT inhalerIndicatio ns:Acute cough Inhale 2 puffs every 4 (four) hours if needed for wheezing. 18 g 3 Active minoxidil (Loniten) 2.5 MG tabletIndication s:Androgenetic alopecia Take 1 tablet (2.5 mg) by mouth in the morning. 30 tablet 11 4 Active ketoconazole (Nizoral) 2 % shampooIndicatio ns:Androgenetic alopecia Apply topically 2 (two) times a week. 120 mL 3 4 Active pantoprazole (ProtoNix) 40 MG EC tablet Take 1 tablet (40 mg) by mouth before breakfast. Do not crush, chew, or split. 90 tablet 3 4 11/23/19 25 Active famotidine (Pepcid) 20 MG tabletIndication s:Gastroesophage al reflux disease without esophagitis Take 1 tablet (20 mg) by mouth 2 times daily. 180 tablet 3 4 06/11/20 25 Active meclizine (Antivert) 25 MG tabletIndication s:Benign paroxysmal positional vertigo due to bilateral vestibular disorder Take 1 tablet (25 mg) by mouth if needed in the morning, at noon, and at bedtime for dizziness or nausea for up to 7 days. 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 Exercise intolerance 07/21/2024 Generalized body aches 07/21/2024 Generalized headaches 07/21/2024 Hemorrhoids 07/21/2024 Ileus 07/21/2024 Iron deficiency 07/21/2024 Neck pain 07/21/2024 Odynophagia 07/21/2024 Palpitations 07/21/2024 Polyarthralgia 07/21/2024 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 Postprandial diarrhea 07/21/2024 Rash 07/21/2024 Lower abdominal pain 07/21/2024 RUQ pain 07/21/2024 Upper abdominal pain 07/21/2024 Urticaria 07/21/2024 Generalized weakness 07/21/2024 COVID-19 07/21/2024 Gastritis 07/21/2024 Gastroenteritis 07/21/2024 GERD (gastroesophageal reflux disease) Mass of upper outer quadrant of left breast 07/10 Assessment & Plan (07/21/2024 6:24 PM EST): Deferred examination, refers feels a lump on her left breast at 3 o'clock, no nipple inversion or discharge, will order a mammogram Microcytic anemia 04/29/2024 Subclinical hypothyroidism 04/01/2024 Gastroesophageal reflux disease without esophagi tis 10/30/2023 Assessment & Plan (07/21/2024 6:21 PM EST): Followed by GI, she is on PPI treatment, will undergo Upper endoscopy evaluation Assessment & Plan (10/30/2023 12:17 PM EST): Will add pantoprazole on the morning, continue famotidine and sucralfate, lifestyle modification were discussed, follow up with Gi Chronic fatigue 09/30/2023 Assessment & Plan (09/30/2023 8:38 AM EST): Most likely related to depression and fibromyalgia, she has hx of iron def anemia, does not tolerate oral iron replacement follow up with hematology. Dizziness 09/30/2023 Assessment & Plan (09/30/2023 8:39 AM EST): Chronic, will provide meclizine, will place vestibular rehab consult Swollen tonsil 09/30/2023 Assessment & Plan (09/30/2023 8:44 AM EST): Patient with hx of chronic tonsil swelling, complains of recurrent sore throat, she was previously referred to ent, will place referall Missed period 05/16/2023 Assessment & Plan (05/16/2023 1:30 PM EDT): Will place order for test Muscle pain 03/04/2023 Assessment & Plan (03/04/2023 1:23 PM EDT): Chronic muscle pain, will renew cyclobenzaprine as needed, reinforced importance of stretching/exercise, told she can also try acupuncture. Follow up as needed Acute right-sided low back pain without sciatica 11/27/2022 Assessment & Plan (12/06/2022 1:17 PM EDT): Patient back pain persist, xray was unremarkable, told to rest apply ice/heat pads, continue muscle relaxant as needed, will refer for PT Assessment & Plan (11/27/2022 10:53 AM EDT): Patient present with back pain on the right side that has been worsening since 11/18/22. Denied trauma, no urinary incontinence/retention, no constipation, no dysuria/hematuria. On examination tender point noted on the right side, will order a lumbar xray, start cyclobenzaprine and tramadol x 3 days. Told to rest, apply ice/heat pads Iron deficiency anemia, unspecified 09/17/2022 Assessment & Plan (07/21/2024 6:20 PM EST): Followed by hematology, she is receiving IV iron replacement, new labs will be orded Assessment & Plan (05/16/2023 1:30 PM EDT): Followed by hematology, she was receiving iv iron replacement, last iron 16%, Assessment & Plan (03/04/2023 1:24 PM EDT): Will order hgb and iron levels, she refers feeling more tired lately, denied chronic vaginal bleeding Assessment & Plan (10/22/2022 3:17 PM EST): Her menorrhagia improved, she is also on iv iron replacement, she had her first session last and refers she will get 5 in total, feeling much better, follow up with ob-gas meter repairer History of gestational diabetes mellitus 022 COVID 08/17/2022 Assessment & Plan (08/17/2022 1:33 PM EST): Patient was diagnosed 2 days ago when she visited er, refers symptoms started on 08/09/22, told to maintain well hydrated, rest and in case of worsening symptoms visit er Menorrhagia with irregular cycle 08/17/2022 Assessment & Plan (08/17/2022 1:34 PM EST): Patient refers has been bleeding for the past month, she visited er 2 days ago hgb was 11.6, will place referal to ob-gas meter repairer, Neck muscle spasm 08/17/2022 Assessment & Plan (08/17/2022 1:34 PM EST): Will start on cyclobenzaprine, rest, apply ice/heat Anemia 08/03/2022 Overview (07/21/2024): Hgb 10.5, Fe supplementation started Last Assessment & Plan: Patient sent for repeat Hgb today. Will request expedited referral to Hematology for iron infusion. Uterine leiomyoma 11/15/2020 Overview (07/21/2024): 11/10/2020 FINDINGS: The uterus measures 10.6 x 6.4 x 7.4 cm, and contains one fibroid. There is a 4.0 x 3.1 x 3.9 cm left anterior fundal subserosal fibroid. Endometrial stripe measures 15 mm. The fibroid distorts the endometrium posteriorly Last Assessment & Plan: I counseled her re: options of treatment including observation, myomectomy, UAE, ablation, and hysterectomy. Given she has bulk sx and is finished with child bearing, she desires a hysterectomy. The risks of the procedure including bleeding, infection and damage to surrounding structures (bowel, bladder, blood vessels, nerves, and ureters) were discussed with patient. We discussed the possibility of blood transfusion and the risks including transfusion reaction and infection, including HIV, and Hepatitis C. Discussed expected hospital care and recovery. She will call in with her final decision as she would like to discuss with her partner. 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 Alopecia areata 07/21/2018 Migraine 07/21/2018 Mood disorder 07/21/2018 Assessment & Plan (07/21/2024 6:23 PM EST): Follwoed by psych for MDD/anxiety, follow up reccomendations Assessment & Plan (05/16/2023 1:31 PM EDT): Followed by psych, no suicidal/homicidal ideas Irritable bowel syndrome 07/21/2018 Encounters Date Type Department Care Team Description 10/03/2024 9:00 AM EST Office Visit [facility] [address] [place] [phone] Alex Pineda MD Benign paroxysmal positional vertigo due to bilateral vestibular disorder (Primary Dx); Numbness and tingling 10/02/[address] [phone] Jah Root MD Nurse Triage 09/30/[address] [address] Jah Root MD FYI 09/30/[address] [phone] Jah Root MD FYI 09/15/2024 Telephone [facility] [address] [place] [address] Bhupinder Cifuentes MD No Show 09/15/[address] [phone] Jah Root MD Appointment Request 08/28/2024 Orders Only [facility] [address] [place] [address] Lalit Langley MD 08/13/2024 Orders Only [facility] [address] [place] [address] Jah Root MD 07/21/2024 1:45 PM EST Office Visit [facility] [address] [place] [address] Jah Root MD Encounter for immunization (Primary Dx); Iron deficiency anemia due to chronic blood loss; Chronic fatigue; Gastroesophageal reflux disease without esophagitis; Abnormal uterine bleeding; Mood disorder (CMS/HCC); Mass of upper outer quadrant of left breast 07/21/2024 Travel 07/13/2024 Patient Outreach [facility] [address] [place] [address] Jah Root MD Pre-visit Planning (SDMI screening completed on 10/30/2023, Pre-visit planning - LVM//) from Last 3 Months Immunizations Name Administration Dates Next Due DTP 07/10/1990, 6,04/09/1985,1984 HPV, Quadrivalent 06/29/2011,11/28/2007 Hep B, Adolescent or Pediatric 03/29/1997,1995,04/06/1996 Influenza injectable quadriv alent IIV4 with preservative 06/20/2016,05/30/2015 Influenza, Split (incl. huang fied surface antigen) 07/28/2012 MMR 07/10/1990,04/09/1986 OPV 08/09/1992, 6,04/09/1985,1984 Td (adult), 5 Lf tetanus tox oid, preservative free, adsorbed 03/29/1997 Tdap 07/21/2024,06/29/2011 Family History Medical History Relation Name Comments Coronary artery disease Mother Relation Name Status Comments Mother Social History Tobacco Use Types Packs/Day Years Used Date Smoking Tobacco: Never Smokeless Tobacco: Never Tobacco Cessation:Counseling Given: Not Answered Alcohol Use Standard Drinks/Week Comments Never 0 [...] Orientation Straight 07/09/2022 10 :14 AM EDT Last Filed Vital Signs Vital Sign Reading Time Taken Comments Blood Pressure 137/78 10/03/2024 9:04 AM EST Pulse 79 10/03/2024 9:04 AM EST Temperature 37.1 ??C (98.8 ??F) 10/03/2024 9:04 AM ES T Respiratory Rate 19 10/03/2024 9:04 AM EST Oxygen Saturation 100% 07/21/2024 1:44 PM EST Inhaled Oxygen Concentration - - Weight 73.8 kg (162 lb 9.6 oz) 10/03/2024 9:04 A M EST Height 164.3 cm (5' 4.7 ) 10/03/2024 9:04 AM EST Body Mass Index 27.31 10/03/2024 9:04 AM EST Plan of Treatment Upcoming Encounters Date Type Department Care Team (Late st Contact Info) Description 11/10/2024 11:30 AM EST Office Visit [facility] [address] [place] [address] Bhupinedr Cifuentes MD [address] [place] [address] Health Maintenance Due Date Last Done Comments Derm Melanoma Skin Check 06/06/1985 Alcohol/Substance Use Screening 1996 Family Planning (PISQ) 12/05/1999 Hepatitis A Vaccines (1 of 2 - Risk 2-dose series) 12/05/2003 HPV Vaccines (3 - 3-dose series) 09/21/2011 06/29/2011, 11/28/2007 COVID-19 Vaccine ( season) 2024 10/06/2021, 01/18/2021, 12/21/2020 Influenza Vaccine (#1) 2024 6, 05/30/2015, 07/28/2012 Depression Screening 10/30/2024 10/30/2023, 10/30/19 24 SDOH Screening 10/30/2024 10/30/2023 Cervical Cancer Screening 04/19/2025 HPV/Cotest 04/19/2025 04/14/2020, 12/15/2018 Pap Smear 04/19/2025 04/14/2020, 12/15/2018 Tobacco Screening 10/03/2025 10/03/2024 DTaP/Tdap/Td Vaccines (7 - Td or Tdap) 07/21/2034 07/21/2024, 06/29/2011, 03/29/1997, Additional history exists Zoster Vaccines (1 of 2) 2034 RSV Patients and Patients Aged 60 years or older (1 - 1-dose 75+ series) 12/05/2059 IPV Vaccines Completed 08/09/1992, 09/1985, 04/09/1985, Additional history exists Hepatitis B Vaccines Completed 03/29/1997, 06/02/1996, 04/06/1996 HIV Screening Completed 07/06/2021 Hepatitis C Screening Completed 07/06/2021 HIB Vaccines Aged Out No longer eligi ble based on patient's age to complete this topic Meningococcal Vaccine Aged Out No cathy danielle eligible based on patient's age to complete this topic Pneumococcal Vaccine: Pediatrics (0 to 5 Years) and At-Risk Patients (6 to 64 Years) Aged Out No longer eligible based on patient's age to complete this topic RSV under 20 months Aged Out No longe r eligible based on patient's age to complete this topic Rotavirus Vaccines Aged Out No longer eligible based on patient's age to complete this topic Procedures Procedure Name Priority Date/Time Associated Diagnosis Comments VITAMIN B12/FOLATE, SERUM PANEL Routine 10/05/2024 10:38 AM EST Benign paroxysmal positional vertigo due to bilateral vestibular disorder Numbness and tingling TSH W/REFLEX TO FT4 Routine 10/05/2024 1 0:38 AM EST Benign paroxysmal positional vertigo due to bilateral vestibular disorder Numbness and tingling CBC WITH AUTO DIFFERENTIAL Routine 10/05/2024 10:38 AM EST Benign paroxysmal positional vertigo due to bilateral vestibular disorder Numbness and tingling HM COLONOSCOPY Routine 08/26/2024 10:07 AM EST BI MAMMOGRAM DIAGNOSTIC TOMOSYNTHESIS BILATERAL Routine 08/13/2024 1:15 PM EST BI US BREAST LIMITED LEFT Routine 08/13/2024 1:15 PM EST TSH W/REFLEX TO FT4 Routine 07/23/2024 1 :27 PM EST Chronic fatigue LIPID PANEL, STANDARD Routine 07/23/2024 1:27 PM EST Chronic fatigue COMPREHENSIVE METABOLIC PANEL Routine 07/23/2024 1:27 PM EST Chronic fatigue VITAMIN B12/FOLATE, SERUM PANEL Routine 07/23/2024 1:27 PM EST Iron deficiency anemia due to chronic blood loss IRON AND TOTAL IRON BINDING CAPACITY Routine 07/23/2024 1:27 PM EST Iron deficiency anemia due to chronic blood loss CBC WITH AUTO DIFFERENTIAL Routine 07/23/2024 1:27 PM EST Iron deficiency anemia due to chronic blood loss ZZZ HISTORICAL HEPATITIS C AB W/REFL TO HCV RNA, QN, PCR Routine 07/06/2021 3:02 PM EDT HIV 1/2 ANTIGEN/ANTIBODY, FOURTH GENERATION W/RFL Routine 07/06/2021 3:02 PM EDT HM PAP/HPV Routine 04/14/2020 12:00 AM EDT from Last 3 Months or Most Recently Relevant to Health Maintenance Results * Vitamin B12/Folate, Serum Panel (10/05/2024 10:38 AM EST) Only the most recent of2 resultswithin the time period is included. Vitamin B12 245 200 - 900 pg/mL [facility] Comment:NORMAL 200-900 PG/ML INDETERMINATE 160-199 PG/ML DEFICIENT < 160 PG/ML Folate 5.2 > or = 4.0 ng/mL [facility] Comment:Reference Values:> o r = 4.0 ng/mL< 4.0 ng/mL suggests folate deficiency Methotrexate, aminopterin and folinic acid(leucovorin) are chemotherapeutic agents whose molecularstructures are similar to folate; therefore, the Architectfolate assay cannot be used for patients using these drugs. Blood Venous blood specimen / Unknown 10/05/2024 10:38 AM EST 10/05/2024 2:21 PM EST us Alex Pineda MD LAB BLOOD ORDERABLES Final Resul t [facility] [address] [place] [address] [phone] * TSH W/Reflex to FT4 (10/05/2024 10:38 AM EST) Only the most recent of2 resultswithin the time period is included. TSH reflex Free T4 2.22 0.32 - 4.0 uIU/mL [facility] Blood Venous blood specimen / Unknown 10/05/2024 10:38 AM EST 10/05/2024 2:21 PM EST us Alex Pineda MD LAB BLOOD ORDERABLES Final Resul t [facility] [address] [place] [address] [phone] * (ABNORMAL) CBC auto differential (10/05/2024 10:38 AM EST) Only the most recent of2 resultswithin the time period is included. White Blood Count 8.8 4.8 - 10.8 X10*3/uL [facility] Red Blood Count 5.06 4.20 - 5.50 X10*6/uL [facility] Hemoglobin 13.1 12.0 - 16.0 g/dl [facility] Hematocrit 39.6 37.0 - 47.0 % [facility] Mean Corpuscular Volume 78.3(L) 80.0 - 98.0 fL [facility] Mean Corpuscular Hemoglobin 25.9(L) 27.0 - 33.0 pg [facility] Mean Corpuscular HGB Conc 33.1 31.0 - 35.0 g/dl [facility] Red Cell Distribution Width 13.4 11.0 - 16.0 % [facility] Platelet Count 272 160 - 400 X10*3/uL [facility] Mean Platelet Volume 10.6 9.4 - 12.3 fL [facility] Neutrophils Percent Auto 67.5 45 - 73 % [facility] Imm Gran Pct Auto 0.3 0.0 - 0.4 % [facility] Lymphocytes Percent Auto 25.9 20 - 40 % [facility] Monocytes Percent Auto 5.0 2 - 11 % [facility] Eosinophils Percent Auto 0.6 0 - 4 % [facility] Basophils Percent Auto 0.7 0 - 2 % [facility] NRBC Pct Auto 0.0 0.0 - 0.2 /100WBC [facility] Neutrophils Absolute Auto 5.9 2.0 - 8.3 x10*3/uL [facility] Imm Gran Abs Auto 0.03 0.00 - 0.03 X10*3/uL [facility] Lymphocytes Absolute Auto 2.3 1.2 - 4.9 X10*3/uL [facility] Monocytes Absolute Auto 0.4 0.1 - 1.2 X10*3/uL [facility] Eosinophils Absolute Auto 0.1 0.0 - 0.4 X10*3/uL [facility] Basophils Absolute Auto 0.1 0.0 - 0.2 X10*3/uL [facility] NRBC Abs Auto 0.000 0.0 - 0.012 X10*3/uL [facility] Blood Venous blood specimen / Unknown 10/05/2024 10:38 AM EST 10/05/2024 2:21 PM EST Alex Pineda MD LAB BLOOD ORDERABLES Final Resul t [facility] [address] [facility] [place] [address] [phone] * Hm Colonoscopy (08/26/2024 10:07 AM EST) Historical Provider HEALTH MAINTENANCE Final Result * BI US Breast Limited Left (08/13/2024 1:15 PM EST) Anatomical Region Laterality Modality Breast Left Ultrasound 08/13/2024 1:15 PM EST Narrative 08/13/2024 2:50 PM EST ? [facility] ? [address] ?[place] [address] ? Ultrasound Report ? Signed ? Patient: Rodarte,Iris D ?MR#: [id number] ?? 62 ? : 1985 ?Acct:[id number] ? Age/Sex: 38 / F ?ADM Date: 12/05/24 ? Loc: HO.MAMMO ? Attending Dr: Jah Dejesus MD ? Ordering Physician: Jah Root MD ?? Date of Service: 08/13/24 ?? Procedure(s): US breast LT limited mamm only ?? Accession Number(s): [id number] ? cc: Jah Root MD ? EXAMINATION: ?? MM DIAGNOSTIC DIGITAL BREAST TOMOSYNTHESIS, BILATERAL ?? Limited left breast ultrasound. ? CLINICAL INFORMATION: ? Left breast palpable lump upper outer breast. Patient has a history of ?? bilateral benign needle core biopsies of outside institution. ? COMPARISON: ?? Mammography: Comparison is made with relevant prior exams. ? TECHNIQUE: ?? Digital breast mammography with tomosynthesis is performed in both the ?? craniocaudal and mediolateral oblique views along with computer-aided ?? detection (CAD). ?? Limited left breast ultrasound. ? FINDINGS: ?? The breasts are heterogeneously dense, which may obscure small masses ?? (ACR BI-RADS breast composition Category c). ?? BPD palpable marker in the upper-outer breast without underlying ?? abnormality. ?? Bilateral marker clips from previous benign needle core biopsies. ?? There are no significant masses, abnormal calcifications, or other ?? abnormalities. ? Targeted color Doppler ultrasound left breast upper-outer quadrant near ?? the patient's palpable lump demonstrates normal fibroglandular breast ?? tissue. ? Results are provided to the patient at time of visit by the ?? technologist. ? US/US breast LT limited mamm only ?? IMPRESSION: ?? No mammographic or sonographic abnormality to account for the patient's ?? palpable lump. Recommend clinical evaluation and follow-up. ? ASSESSMENT: ? BI-RADS BI-RADS 1 - Negative ? RECOMMENDATION: ?? 1 year F/U ? This patient's information was entered into a reminder system with a ?? target due date for their next mammogram. ? Electronically signed by: ??Amanda Santana DO ??08/13/2024 02:47 PM EST ?? RP ? Dictated By: ?Amanda Santana DO ? Signed By: ?<Electronically signed by Amanda Santana, DO in OV> ? 08/13/24 1447 ? DD/ 1315 ? TD/TT: 08/13/24 1430 ? Bankman: ? Procedure Note Solo, Image - 08/13/2024 [facility] [address] [place] [address] Ultrasound Report Signed Patient: Radha Rodarte DMR#: [id number] 62 : 1985Acct:[id number] Age/Sex: 38 / FADM Date: 08/13/24 Loc: HO.MAMMO Attending Dr: Jah Dejesus MD Ordering Physician: Jah Root MD Date of Service: 08/13/24 Procedure(s): US breast LT limited mamm only Accession Number(s): [id number] cc: Jah Root MD EXAMINATION: MM DIAGNOSTIC DIGITAL BREAST TOMOSYNTHESIS, BILATERAL Limited left breast ultrasound. CLINICAL INFORMATION: Left breast palpable lump upper outer breast. Patient has a history of bilateral benign needle core biopsies of outside institution. COMPARISON: Mammography: Comparison is made with relevant prior exams. TECHNIQUE: Digital breast mammography with tomosynthesis is performed in both the craniocaudal and mediolateral oblique views along with computer-aided detection (CAD). Limited left breast ultrasound. FINDINGS: The breasts are heterogeneously dense, which may obscure small masses (ACR BI-RADS breast composition Category c). BPD palpable marker in the upper-outer breast without underlying abnormality. Bilateral marker clips from previous benign needle core biopsies. There are no significant masses, abnormal calcifications, or other abnormalities. Targeted color Doppler ultrasound left breast upper-outer quadrant near the patient's palpable lump demonstrates normal fibroglandular breast tissue. Results are provided to the patient at time of visit by the technologist. US/US breast LT limited mamm only IMPRESSION: No mammographic or sonographic abnormality to account for the patient's palpable lump. Recommend clinical evaluation and follow-up. ASSESSMENT: BI-RADS BI-RADS 1 - Negative RECOMMENDATION: 1 year F/U This patient's information was entered into a reminder system with a target due date for their next mammogram. Electronically signed by: Amanda Santana DO 08/13/2024 02:47 PM [facility] Dictated By: Amanda Santana DO Signed By: <Electronically signed by Amanda Santana DO in OV> 08/13/24 1447 DD/ 1315 TD/TT: 08/13/24 1430 Bankman: us Jah WALTERS US PROCEDURES Edited Result - Final * BI Mammogram Diagnostic Tomosynthesis Bilateral (08/13/2024 1:15 PM EST) Anatomical Region Laterality Modality Breast Bilateral Mammography 08/13/2024 1:15 PM EST Narrative 08/13/2024 2:50 PM EST ? [facility] ? [address] ?[place] [address] ? Mammography Report ? Signed ? Patient: Rodarte,Iris D ?MR#: [id number] ?? 62 ? : 1985 ?Acct:[id number] ? Age/Sex: 38 / F ?ADM Date: 08/13/24 ? Loc: HO.MAMMO ? Attending Dr: Jah Dejesus MD ? Ordering Physician: Jah Root MD ?Res ?? ults: 1Negative ? Date of Service: 08/13/24 ?Follow Up: 1 Year From Orig ?? inal Mammogram ? Procedure(s): MM tomosynthesis diagnostic BI ?? Accession Number(s): [id number] ? cc: Jah Root MD ? EXAMINATION: ?? MM DIAGNOSTIC DIGITAL BREAST TOMOSYNTHESIS, BILATERAL ?? Limited left breast ultrasound. ? CLINICAL INFORMATION: ? Left breast palpable lump upper outer breast. Patient has a history of ?? bilateral benign needle core biopsies of outside institution. ? COMPARISON: ?? Mammography: Comparison is made with relevant prior exams. ? TECHNIQUE: ?? Digital breast mammography with tomosynthesis is performed in both the ?? craniocaudal and mediolateral oblique views along with computer-aided ?? detection (CAD). ?? Limited left breast ultrasound. ? FINDINGS: ?? The breasts are heterogeneously dense, which may obscure small masses ?? (ACR BI-RADS breast composition Category c). ?? BPD palpable marker in the upper-outer breast without underlying ?? abnormality. ?? Bilateral marker clips from previous benign needle core biopsies. ?? There are no significant masses, abnormal calcifications, or other ?? abnormalities. ? Targeted color Doppler ultrasound left breast upper-outer quadrant near ?? the patient's palpable lump demonstrates normal fibroglandular breast ?? tissue. ? Results are provided to the patient at time of visit by the ?? technologist. ? MM/MM tomosynthesis diagnostic BI ?? IMPRESSION: ?? No mammographic or sonographic abnormality to account for the patient's ?? palpable lump. Recommend clinical evaluation and follow-up. ? ASSESSMENT: ? BI-RADS BI-RADS 1 - Negative ? RECOMMENDATION: ?? 1 year F/U ? This patient's information was entered into a reminder system with a ?? target due date for their next mammogram. ? Electronically signed by: ??Amanda Santana DO ??08/13/2024 02:47 PM EST ? Dictated By: ?Amanda Santana DO ? Signed By: ?<Electronically signed by Amanda Santana, DO in OV> ? 08/13/24 1447 ? DD/ 1315 ? TD/TT: 08/13/24 1430 ? Bankman: ? Procedure Note Eder Banda - 08/13/2024 [facility] [address] [place] [address] [place] [address] Mammography Report Signed Patient: Radha Rodarte [facility]#: [id number] 62 : 1985Acct:[id number] Age/Sex: 38 / FADM Date: 08/13/24 Loc: HO.MAMMO Attending Dr: Jah Dejesus MD Ordering Physician: Jah oRot ults: 1Negative Date of Service: 08/13/24Follow Up: 1 Year From Orig ina Mammogram Procedure(s): MM tomosynthesis diagnostic BI Accession Number(s): [id number] cc: Jah Root MD EXAMINATION: MM DIAGNOSTIC DIGITAL BREAST TOMOSYNTHESIS, BILATERAL Limited left breast ultrasound. CLINICAL INFORMATION: Left breast palpable lump upper outer breast. Patient has a history of bilateral benign needle core biopsies of outside institution. COMPARISON: Mammography: Comparison is made with relevant prior exams. TECHNIQUE: Digital breast mammography with tomosynthesis is performed in both the craniocaudal and mediolateral oblique views along with computer-aided detection (CAD). Limited left breast ultrasound. FINDINGS: The breasts are heterogeneously dense, which may obscure small masses (ACR BI-RADS breast composition Category c). BPD palpable marker in the upper-outer breast without underlying abnormality. Bilateral marker clips from previous benign needle core biopsies. There are no significant masses, abnormal calcifications, or other abnormalities. Targeted color Doppler ultrasound left breast upper-outer quadrant near the patient's palpable lump demonstrates normal fibroglandular breast tissue. Results are provided to the patient at time of visit by the technologist. MM/MM tomosynthesis diagnostic BI IMPRESSION: No mammographic or sonographic abnormality to account for the patient's palpable lump. Recommend clinical evaluation and follow-up. ASSESSMENT: BI-RADS BI-RADS 1 - Negative RECOMMENDATION: 1 year F/U This patient's information was entered into a reminder system with a target due date for their next mammogram. Electronically signed by: Amanda Santana DO 08/13/2024 02:47 [facility] Dictated By: Amanda Santana DO Signed By: <Electronically signed by Amanda Santana DO in OV> 08/13/24 1447 DD/ 1315 TD/TT: 08/13/24 1430 Bankman: us Jah Dejesus MD IMG BI PROCEDURES Edited Result - Final * Iron And Total Iron Binding Capacity (07/23/2024 1:27 PM EST) Iron 52 30 - 160 mcg/dL [facility] Total Iron Binding Capacity 295 228 - 428 mcg/dL [facility] Percent Iron Saturation 18 15 - 50 % [facility] Unsaturated Iron Binding 243 ug/dL [facility] Blood Venous blood specimen / Unknown 07/23/2024 1:27 PM EST 07/23/2024 4:04 PM EST us Jah Dejesus MD LAB BLOOD ORDERABL ES Final Result [facility] [address] [place] [phone] * (ABNORMAL) Lipid Panel, Standard (07/23/2024 1:27 PM EST) Triglycerides 191(H) <150 mg/dL [facility] Comment:Desirable Triglyceri de: less than 150 mg/dLBorderline High Triglyceride 150-199 mg/dLHigh Triglyceride: 200-499 mg/dLVery High Triglyceride: greater than or equal to 5OO mg/dL Cholesterol 144 <200 mg/dL [facility] Comment:Desirable Cholestero l: less than 200 mg/dLBorderline High Cholesterol: 200-239 mg/dLHigh Cholesterol: greater than 239 mg/dL LDL Cholesterol Calculated 74 <100 mg/dL [facility] Comment:Desirable LDL: less than 100 mg/dLNear Optimal/Above Optimal LDL: 110- 129 mg/dLBorderline High LDL: 130-159 mg/dLHigh LDL: 160-189 mg/dLVery High LDL: greater than or equal to 190 mg/dL HDL Cholesterol 32(L) >40 mg/dL [facility] Comment:Desirable HDL: great er than 40 mg/dL Note: This HDL assay may give artificially low results in patients with liver disease. Blood Venous blood specimen / Unknown 07/23/2024 1:27 PM EST 07/23/2024 4:04 PM EST us Jah Dejesus MD LAB BLOOD ORDERABL ES Final Result Performing Organization Address City/[facility]/ZIP Co de Phone Number [facility] [address] [place] [phone] * (ABNORMAL) Comprehensive Metabolic Panel (07/23/2024 1:27 PM EST) Sodium 138 135 - 145 mmol/L [facility] Potassium 4.3 3.3 - 5.1 mmol/L [facility] Chloride 106 96 - 108 mmol/L [facility] Carbon Dioxide 26 22 - 29 mmol/L [facility] Anion Gap 10(L) 12 - 20 [facility] Urea Nitrogen (BUN) 9 9 - 16 mg/dL [facility] Creatinine, Serum 0.74 0.5 - 1.4 mg/dL [facility] Estimated Glomerular Filt Rate >60 [facility] Comment:Chronic Kidney Disea se: Estimated GFR < 60 mL/min/1.92n9Driwjc Kidney Disease: Estimated GFR < 15 mL/min/1.73m2 Glucose 80 60 - 115 mg/dL [facility] Calcium 8.9 8.4 - 10.2 mg/dL [facility] Bilirubin, Total 0.5 0.0 - 1.0 mg/dL [facility] Aspartate Amino Transferase 21 5 - 31 U/L [facility] Alanine Aminotransferase 13 0 - 31 U/L [facility] Total Protein 7.4 6.5 - 8.0 g/dL [facility] Albumin Level 4.3 3.5 - 5.0 g/dL [facility] Alkaline Phosphatase 83 39 - 117 U/L [facility] Blood Venous blood specimen / Unknown 07/23/2024 1:27 PM EST 07/23/2024 4:04 PM EST us Jah Dejesus MD LAB BLOOD ORDERABL ES Final Result Performing Organization Address City/[facility]/ZIP Co de Phone Number [facility] [address] [place] [phone] * HEPATITIS C AB W/REFL TO HCV RNA, QN, PCR (07/06/2021 3:02 PM EDT) HEPATITIS C ANTIBODY NON-REACT IGNACIO NON-REACT IGNACIO [facility] INDEX 0.02 <1.00 [facility] Comment: ?? HCV antibody was non-reactive. There is no laboratory ?? evidence of HCV infection. ?? In most cases, no further action is required. However, if recent HCV exposure is suspected, a test for HCV RNA (test code 85567) is suggested. ?? For additional information please refer to http://FireHost.Stir/faq/POI42x5 (This link is being provided for informational/ educational purposes only.) ?? 07/06/2021 3:02 PM EDT Jah Dejesus MD HISTORICAL/NON ORD ERABLE LABS Final Result [facility] [address] * HIV 1/2 ANTIGEN/ANTIBODY,FOURTH GENERATION W/RFL (07/06/2021 3:02 PM EDT) Pathologist [facility] HIV-1/2 ANTIGEN AND ANTIBODIES, 4TH GENERATION W/ REFLEX NON-REACT IGNACIO NON-REACT IGNACIO [facility] Comment: HIV-1 antigen and HIV-1/HIV-2 antibodies were not detected. There is no laboratory evidence of HIV infection. ?? PLEASE NOTE: This information has been disclosed to you from records whose confidentiality may be protected by state law. ??If your state requires such protection, then the state law prohibits you from making any further disclosure of the information without the specific written consent of the person to whom it pertains, or as otherwise permitted by law. A general authorization for the release of medical or other information is NOT sufficient for this purpose. ? For additional information please refer to http://FireHost.Stir/faq/EFR834 (This link is being provided for informational/ educational purposes only.) ? The performance of this assay has not been clinically validated in patients less than 2 years old. ?? 07/06/2021 3:02 PM EDT Jah Dejesus MD LAB BLOOD ORDERABL ES Final Result Performing Organization Address City/State/ZIP Co tn Phone Number [facility] [address] * PAP/HPV (04/14/2020 12:00 AM EDT) Pap Smear 1. NILM 1. NILM HPV Undetected Undetected, Indeterminate , Quantitative, Not Detected Historical Provider HEALTH MAINTENANCE Edited Result - Final from Last 3 Months or Most Recently Relevant to Health Maintenance [facility] [employer] [employer] C[employer] Care Teams Insurance Defense Paralegal Relationship Specialty Start Date End Date CobianJah Perdomo MD [address] [place] [address] [place] [address] PCP - General Internal Medicine 01/26/20
--- OUTSIDE RECORDS SUMMARY | 2024-10-05 15:22 | XMS_ITS | Encounter Summary ---
Author Organization [employer] Address [address] [place] [address] Care Team Providers Care Pecan Mallow Dipper Name Role Phone Jah Root Primary Care Provide r Reason for Referral * Imaging (Routine) - Closed Specialty Diagnoses / Procedures Referred By Jaime kong Referred To Contact Radiology Diagnoses Liver lesion Procedures MR Abdomen wo and w Contrast Waldo Kerr DO [address] Referral ID Status Reason Start Date Expiration Date Visits Re quested Visits Authorized [id number] Closed 09/10/2024 05/02/2025 1 1 Reason for Visit * Imaging (Routine) - Closed Specialty Diagnoses / Procedures Referred By Jaime kong Referred To Contact Radiology Diagnoses Liver lesion Procedures MR Abdomen wo and w Contrast Waldo Kerr DO [address] [facility] [address] [place], [place] Referral ID Status Reason Start Date Expiration Date Visits Re quested Visits Authorized [id number] Closed 09/10/2024 05/02/2025 1 1 Encounter Details Date Type Department Care Team (Latest Contact Info) Description 09/22/2024 9:58 AM EST - 09/22/2024 11:59 PM EST Hospital Encounter Radiology Department - [address] [phone] Liver lesion Discharge Disposition: Home or Self Care Social History Tobacco Use Types Packs/Day Years Used Date Smoking Tobacco: Never Smokeless Tobacco: Never Alcohol Use Standard Drinks/Week Comments No 0 (1 standard drink = 0.6 oz pur e alcohol) Interpersonal Safety Answer Date Record ed Physical Abuse 08/26/2024 Verbal Abuse 08/26/2024 Sex and Gender Information Value Date Recorded Sex Assigned at Female 10/02/2024 4:12 PM EST Gender Identity Female 10/02/2024 4:12 PM EST Sexual Orientation Not on file Job Start Date Occupation Industry Not on file Not on file Not on file documented as of this encounter Medications at Time of Discharge Medication Sig Dispensed Refills Start Date End Date bisacodyL (DULCOLAX) 5 mg EC tablet Take by mouth. Take 2 tablets by mouth right before your first dose of liquid prep. bisacodyL (DULCOLAX) 5 mg EC tablet Take 2 tablets by mouth right before beginning bowel prep. See instructions provided by the office 2 tablet 08/12/2024 cholecalciferol (VITAMIN D-3) 50 mcg (2,000 unit) capsule Take 1 tablet by mouth daily. 11/17/2019 docusate sodium (COLACE) 100 mg capsule Take 1 capsule by mouth daily for 30 days. 01/09/2021 famotidine (PEPCID) 40 mg tablet Take 1 Tablet by mouth at bedtime. IBUPROFEN ORAL Take 1 Tablet by mouth every 6 hours as needed for Pain 06/14/2023 naproxen (NAPROSYN) 500 mg tablet TAKE 1 TABLET BY MOUTH 2 TIMES DAILY FOR 360 DAYS. 03/23/2024 03/18/2025 omeprazole (PriLOSEC) [address] capsule TAKE 1 CAPSULE BY MOUTH 1 TIME EACH DAY. DO NOT CRUSH OR CHEW. 90 capsule 3 09/01/2024 pantoprazole (PROTONIX) 20 mg EC tablet Take 20 mg by mouth daily. polyethylene glycol (Golytely) 236-22.74-6.74 -5.86 gram solution Take 4L by mouth once for one dose. May substitue any PEG. Starting at 6PM the night before your procedure drink 1 8oz glasses at your own pace until you complete half of the gallon. Finish 2nd half of the gallon 5 hours before your procedure. 4000 mL 08/12/2024 polyethylene glycol (MIRALAX) 17 gram packet Take 17 g by mouth daily for 3 days. 12/19/2018 documented as of this encounter Discharge Disposition Disposition Code Departure Means Destination Home or Self Care documented in this encounter Progress Notes * Waldo Kerr DO - 09/22/2024 10:00 AM EST Please let the patient know that the MRI of the abdomen did not show a liver mass. This is good news. So far we have an ultrasound that raise concern for a 1.5 cm area in the right side of the liver but this was not seen on the CT scan or this MRI. Given the fact that her liver enzymes have been completely normal, I would recommend that over the next couple months she undergoes a repeat liver ultrasound so we can compare the lesion based on 2 different ultrasounds. I suspect that this lesion seen on ultrasound represent a specific fatty infilt ration/sparing in the liver. In other words, I think she has patchy nonalcoholic fatty liver disease. However, we need to confirm this with a repeat ultrasound which could be done in a nonurgent basis. I also recommend that she follows up with her PCP to discuss a spinal MRI as she was found to have a little cyst next to her spinal cord. It is important that she understand that this is not cancer but something that may need to be followed in the future. Please do the following: Schedule the patient for a follow-up with me into my next available slot. Nonurgent. Diagnosis: Liver lesion, paraspinal lesion. Contact the patient's PCP to let her know about the abnormal paraspinal finding on abdominal MRI. Please order a liver ultrasound for me to cosign. Diagnosis: 1.5 cm right lobe lesion. Thank you so very much. * Tiny Lawrence MA - 09/22/2024 10:00 AM EST LM for pt to call back. * Tiny Lawrence MA - 09/22/2024 10:00 AM EST Patient informed. Spoke with PCP office and made them aware of this finding and that pt is advised to follow up with Dr Dejesus for this. MRI report faxed to their office at [phone]. Liver ultrasound pended. * Tiny Lawrence MA - 09/22/2024 10:00 AM EST Pt has f/u scheduled with Dr Kerr for 01/07/25 documented in this encounter Plan of Treatment Upcoming Encounters Date Type Department Care Team (Late st Contact Info) Description 10/12/2024 7:00 AM EST Appointment [facility] Ultrasound [address] [place] [address] 01/07/2025 9:40 AM EDT Office Visit Gastroenterology - [place] [address] [facility] [address] [place] [phone] Waldo Kerr DO 175 [facility] [address] [place] [address] documented as of this encounter Procedures Procedure Name Priority Date/Time Associated Diagnosis Comments MR ABDOMEN WO AND W CONTRAST Routine 09/22/2024 10:39 AM EST Liver lesion documented in this encounter Results * MR Abdomen wo and w Contrast (09/22/2024 10:39 AM EST) Anatomical Region Laterality Modality Body Magnetic Resonan ce 09/22/2024 6:19 PM EST Impressions 09/22/2024 7:07 PM EST Hepatic steatosis. ??No clear correlate for the 1.5 cm hypoechoic right hepatic lobe lesion seen on ultrasound. ??Recommend abdominal ultrasound to reassess the lesion as it has been 6 months since the initial ultrasound. Small cystic-appearing paraspinal lesion in the upper thoracic region only seen on one sequence. ??Recommend thoracic spine MRI without and with contrast for further evaluation. POS [id number] -------- FINAL REPORT -------- Dictated By: Svitlana Lacy Dictated Date: 09/22/2024 18:19 ET Assigned Physician: Svitlana Lacy Reviewed and Electronically Signed By: Svitlana Lacy Signed Date: 09/22/2024 19:07 ET Workstation ID: [id number] Transcribed By: Self Edit Transcribed Date: 09/22/2024 18:58 ET Narrative 09/22/2024 7:07 PM EST EXAM: ??MRI abdomen HISTORY: ??Right hepatic lobe hypoechoic mass on abdominal ultrasound. COMPARISON: None CORRELATION: ??Abdominal ultrasound 02/21/2024, CT abdomen and pelvis 09/03/2022 TECHNIQUE: Exam performed on a 1.5 Bernie high-field MRI scanner. ??Multiplanar imaging performed without and with contrast. ??15 cc of Dotarem administered intravenously. Routine noncontrast MRCP also obtained. FINDINGS: Liver: Top normal in size measuring 18 cm in craniocaudad extent. ??Parenchyma shows signal dropout on opposed phase imaging from steatosis. ??No enhancing hepatic lesion identified. ??Specifically, no clear correlate for the 1.5 cm hypoechoic area in the right hepatic lobe on ultrasound. Gallbladder/biliary tree: Status post cholecystectomy. ??No biliary ductal dilatation. ??No filling defects within the biliary tree. Spleen: Normal in size. ??Lobular cystic appearing area along the margin of the upper medial spleen has similar appearance to the CT. ??It is of uncertain etiology; however, the stability is reassuring. ??Subcentimeter cyst in the inferior spleen. Pancreas: No abnormality detected. ??No pancreatic ductal dilatation. Adrenal glands: No masses. Kidneys/ureters: ??No hydronephrosis or focal lesion. Vasculature: No abdominal aortic aneurysm. ??Hepatic veins and portal vein are patent. Peritoneum: No significant ascites or organized collection. Lymph nodes: No lymphadenopathy detected. Bowel: Nonobstructed bowel pattern. Lower thorax: 1.3 cm circumscribed cystic appearing lesion in the anterior paraspinal region right of midline in the upper thoracic region only visualized on the coronal T2 sequence, image 20. ??No infiltrate in the basal lungs. ??No pleural or pericardial effusions. Procedure Note Svitlana Lacy MD - 09/22/2024 EXAM: MRI abdomen HISTORY: Right hepatic lobe hypoechoic mass on abdominal ultrasound. COMPARISON: None CORRELATION: Abdominal ultrasound 02/21/2024, CT abdomen and [id number]/2022 TECHNIQUE: Exam performed on a 1.5 Bernie high-field MRI scanner.Multiplanar imaging performed without and with contrast. 15 cc of Dotaremadministered intravenously. Routine noncontrast MRCP also obtained. FINDINGS: Liver: Top normal in size measuring 18 cm in craniocaudad extent.Parenchyma shows signal dropout on opposed phase imaging from steatosis.No enhancing hepatic lesion identified. Specifically, no clear correlatefor the 1.5 cm hypoechoic area in the right hepatic lobe on ultrasound. Gallbladder/biliary tree: Status post cholecystectomy. No biliary ductaldilatation. No filling defects within the biliary tree. Spleen: Normal in size. Lobular cystic appearing area along the margin ofthe upper medial spleen has similar appearance to the CT. It is ofuncertain etiology; however, the stability is reassuring. Subcentimetercyst in the inferior spleen. Pancreas: No abnormality detected. No pancreatic ductal dilatation. Adrenal glands: No masses. Kidneys/ureters: No hydronephrosis or focal lesion. Vasculature: No abdominal aortic aneurysm. Hepatic veins and portal veinare patent. Peritoneum: No significant ascites or organized collection. Lymph nodes: No lymphadenopathy detected. Bowel: Nonobstructed bowel pattern. Lower thorax: 1.3 cm circumscribed cystic appearing lesion in the anteriorparaspinal region right of midline in the upper thoracic region onlyvisualized on the coronal T2 sequence, image 20. No infiltrate in thebasal lungs. No pleural or pericardial effusions. IMPRESSION: Hepatic steatosis. No clear correlate for the 1.5 cm hypoechoic righthepatic lobe lesion seen on ultrasound. Recommend abdominal ultrasound toreassess the lesion as it has been 6 months since the initialultrasound. Small cystic-appearing paraspinal lesion in the upper thoracic region onlyseen on one sequence. Recommend thoracic spine MRI without and withcontrast for further evaluation. POS [id number] -------- FINAL REPORT -------- Dictated By: Svitlana Lacy Dictated Date: 09/22/2024 18:19 ET Assigned Physician: Svitlana Lacy Reviewed and Electronically Signed By: Svitlana Lacy Signed Date: 09/22/2024 19:07 ET Workstation ID: [id number] Transcribed By: Self Edit Transcribed Date: 09/22/2024 18:58 ET Waldo Kerr DO IMG MRI PROCEDURES documented in this encounter Visit Diagnoses Diagnosis Liver lesion Other specified disorders of liver documented in this encounter Administered Medications Inactive Administered Medications - up to 3 most recent administrations Medication Order MAR Action Action Date Dose Rate Site gadoterate meglumine (CLARISCAN, DOTAREM) injection 15 mL 15 mL, intravenous, Once in imaging, Starting on Tu09/22/24 at 1039, For 1 dose Given 09/22/2024 10:40 AM EST 15 mL documented in this encounter Orders Medications Ordered That Roc ht Not Have Been Administered Count Last Ordered Date First Ordered Date gadoterate meglumine (PRESTON CAN, DOTAREM) injection 15 mL 1 09/22/2024 documented in this encounter Care Teams Pecan Mallow Dipper Relationship Specialty Start Date End Date Jah Root [address] [place], [place] PCP - General 04/29/24 documented as of this encounter
--- OUTSIDE RECORDS SUMMARY | 2024-10-05 15:22 | XMS_ITS | Encounter Summary ---
Author Organization [employer] Address [address] [place] [address] Care Team Providers Care Auto Service Writer Name Role Phone Jah Root Primary Care Provide r Reason for Referral * Imaging (Routine) - Pending Review Specialty Diagnoses / Procedures Referred By Jaime kong Referred To Contact Radiology Diagnoses Liver lesion Procedures MR Abdomen w Contrast Waldo Kerr DO [address] [place] [address] [facility] Referral ID Status Reason Start Date Expiration Date V isits Requested Visits Authorized [id number] Pending Review 09/07/2024 09/07/2025 1 1 Reason for Visit * Reason Onset Date Comments provider call back 09/07/2024 CT order Encounter Details Date Type Department Care Team (Late st Contact Info) Description 09/07/2024 Telephone Gastroenterology - [place] [address] [place] [address] Waldo Kerr DO [address] [place] [address] provider call back (CT order) Social History Tobacco Use Types Packs/Day Years [...] on file documented as of this encounter Progress Notes * Tiny Lawrence [place] - 09/07/2024 12:08 PM EST You ordered an MRI for her liver at last office visit. Patient had it scheduled for May, but was advised by you to wait 3 months, then get it done since she was getting iron transfusions. Could a new order be placed for the MRI? * Brooke Higgins - 09/07/2024 8:39 AM EST Pt is calling stating she is wondering if another CT scan could be ordered for her liver. She stated that she did one 3 months ago and he wanted it repeated documented in this encounter Plan of Treatment Upcoming Encounters Date Type Department Care Team (Late st Contact Info) Description 10/12/2024 7:00 AM EST Appointment [facility] Ultrasound [address] [place] [phone] 01/07/2025 9:40 AM EDT Office Visit Gastroenterology - [place] 175 [facility] [address] [facility] [address] [place] [phone] Waldo Kerr DO [address] [facility] [address] [place] [address] Scheduled Orders Name Type Priority Associated Diagnoses Orde r Schedule MR Abdomen w Contrast Imaging Routine Liver lesion Expected: 09/07/2024, Expires: 09/07/2025 documented as of this encounter Visit Diagnoses Diagnosis Liver lesion- Primary Other specified disorders of liver documented in this encounter Care Teams Auto Service Writer Relationship Specialty Start Date End Date Jah Root [address] [place], [place] PCP - General 04/29/24 documented as of this encounter
--- OUTSIDE RECORDS SUMMARY | 2024-10-05 15:22 | XMS_ITS | Encounter Summary ---
Author Organization [employer] Address [address] [facility] 7t [place] [address] Care Team Providers Care Mixing Machine Feeder Name Role Phone Jah Root MD Primary Care Prov ider Reason for Visit * Reason Onset Date Comments Nurse Triage 08/06/2023 Encounter Details Date Type Department Care Team (Late st Contact Info) Description 08/06/2023 Telephone [facility] MEDICINE [address] [place] [address] Jah Root MD [address] [place], [place] [phone] Nurse Triage Social History Tobacco Use Types [...] encounter Miscellaneous Notes * Telephone Encounter - Tamia Mckenzie RN - 08/06/2023 12:49 PM EST Call to Radha Rodarte, reports having dizziness since last televisit. Per pt was supposed to get blood work done but orders never placed at lat visit 07/26/23. Per pt did pick out hand meclizine and took as instructed but dizziness did not resolve. Pe rpt plan was for blood work to look at H&H sincept has hx of anemia. Pt advised notes from tele visit not able to be viewed. No room spinning, vomiting, fever , RIVAS or ear pain. Pt advised of disposition, agrees to have PCP review notes for blood work request. Protocol Used: Dizziness (Adult) Protocol-Based Disposition: See in Office or Video Visit within 2 Weeks Override (Final) Disposition: Discuss with PCP and Callback by Nurse Override Reason: Already seen and questions Positive Triage Question: * Dizziness not present now, but is a chronic symptom (recurrent or ongoing AND lasting > 4 weeks) * All higher-acuity triage questions were negative Care Advice Discussed: * Reassurance and Education - Dizziness From Not Drinking Enough Liquids * Drink Fluids * Reasons To Call Back - After 2 hours of rest and fluids And still feeling dizzy. - Passes out (faints). - You become worse. * Telephone Encounter - Alf Antunez - 08/06/2023 12:02 PM EST Symptom: Dizziness Outcome: Schedule an urgent appointment (within 4 hours) or talk to a nurse or provider soon Reason: Getting worse The caller accepted this outcome documented in this encounter Plan of Treatment Upcoming Encounters Date Type Department Care Team ([facility] st Contact Info) Description 11/10/2024 11:30 AM EST Office Visit [facility] MED & PEDS [address] [place] [address] Bhupinder Cifuentes MD [address] [place] [address] documented as of this encounter Visit Diagnoses Not on filedocumented in this encounter Additional Health Concerns Assessment Noted Time PHQ-9 Depression Total Score: 10 023 2:28 PM EST documented as of this encounter Care Teams Mixing Machine Feeder Relationship Specialty Start Date End Date Jah Root MD [address] [place] [address] PCP - General Internal Medicine 01/26/20 documented as of this encounter
--- OUTSIDE RECORDS SUMMARY | 2024-10-05 15:22 | XMS_ITS | Encounter Summary ---
Author Organization [employer] Address [address] [facility] 7t [place] [address] Care Team Providers Care Embossing Toolsetter Name Role Phone Jah Root MD Primary Care Prov ider Reason for Visit * Reason Onset Date Comments Results 03/10/2024 Encounter Details Date Type Department Care Team ([facility] st Contact Info) Description 03/10/2024 Telephone [facility] MEDICINE [address] [place] [address] Jah Root MD [address] [place] [address] Results Social History Tobacco Use Types Packs/Day [...] encounter Miscellaneous Notes * Telephone Encounter - Mony Carmen RN - 03/10/2024 11:18 AM EDT See message below. Labs ordered 02/12/[address] Cobian. RN will forward to ordering provider to review and advise [facility] Team Nurses. TC from pt requesting call back regarding Results. Type of results: Labs Date when done: Around 2 weeks ago Facility: [facility] Labs * Telephone Encounter - Miguel Davalos - 03/10/2024 10:15 AM EDT TC from pt requesting call back regarding Results. Type of results: Labs Date when done: Around 2 weeks ago Facility: [facility] Labs documented in this encounter Plan of Treatment Upcoming Encounters Date Type Department Care Team ([facility] st Contact Info) Description 11/10/2024 11:30 AM EST Office Visit [facility] MED & PEDS [address] [place] [address] Bhupinder Cifuentes MD [address] [place] [address] documented as of this encounter Visit Diagnoses Not on filedocumented in this encounter Additional Health Concerns Assessment Noted Time PHQ-9 Depression Total Score: 8 10/30/19 24 9:42 AM EST documented as of this encounter Care Teams Embossing Toolsetter Relationship Specialty Start Date End Date Jah Root MD [address] [place] [phone] PCP - General Internal Medicine 01/26/20 documented as of this encounter
--- OUTSIDE RECORDS SUMMARY | 2024-10-05 15:22 | XMS_ITS | Encounter Summary ---
Author Organization [employer] Address [address] [facility] 7t [place] [address] Care Team Providers Care Transit Mixer Driver Name Role Phone Jah Root MD Primary Care Prov ider Reason for Visit * Reason Onset Date Comments FYI 09/30/2024 Encounter Details Date Type Department Care Team ([facility] st Contact Info) Description 09/30/[address] [facility] MEDICINE [address] [place] [address] Jah Root MD [address] [place], [place] [phone] Social History Tobacco Use Types Packs/Day Years [...] encounter Miscellaneous Notes * Telephone Encounter - Haile Lainez - 09/30/2024 9:48 AM EST TC from [facility] with Anya FIELDS wanting to advise will be sending image report via fax today for provider to report . States finding are Para Spinal Lesions documented in this encounter Plan of Treatment Upcoming Encounters Date Type Department Care Team (Late st Contact Info) Description 11/10/2024 11:30 AM EST Office Visit [facility] MED & PEDS [address] [place] [address] Bhupinder Cifuentes MD [address] [place] [address] documented as of this encounter Visit Diagnoses Not on filedocumented in this encounter Additional Health Concerns Assessment Noted Time PHQ-9 Depression Total Score: 8 10/30/19 24 9:42 AM EST documented as of this encounter Care Teams Transit Mixer Driver Relationship Specialty Start Date End Date Jah Root MD [address] [place] [address] PCP - General Internal Medicine 01/26/20 documented as of this encounter
--- OUTSIDE RECORDS SUMMARY | 2024-10-05 15:22 | XMS_ITS | Encounter Summary ---
Author Organization [employer] Address [address] [place] [address] Care Team Providers Care Weigher And Mixer Name Role Phone Jah Root Primary Care Provide r Reason for Visit * Reason Onset Date Comments provider call back 08/27/2024 Encounter Details Date Type Department Care Team (Late st Contact Info) Description 08/27/2024 Telephone Gastroenterology - [place] 175 [facility] [address] [facility] [address] [place] [phone] Waldo Kerr DO [address] [facility] [address] [place] [address] provider call back Social History Tobacco Use Types Packs/Day Years [...] on file documented as of this encounter Ordered Prescriptions Prescription Sig Dispensed Refills Start Date End Da te omeprazole (PriLOSEC) [address] capsule Take 1 capsule (40 mg total) by mouth 1 (one) time each day. Do not crush or chew. 30 each 08/28/2024 09/01/2024 documented in this encounter Progress Notes * Tiny Lawrence [place] - 08/28/2024 12:32 PM EST Spoke with pt and her son. Med pended to Dr Kerr to sign. Informed them of results from endoscopy. See result note. * Brooke Higgins - 08/27/2024 9:01 AM EST Pts son is calling and stating that after her procedure yesterday Dr. Kerr indicated [facility] but it has not been sent to the pharmacy [facility] in [place] Also, he indicated that Dr. Kerr said he would call her yesterday and she never heard from him. documented in this encounter Plan of Treatment Upcoming Encounters Date Type Department Care Team (Late st Contact Info) Description 10/12/2024 7:00 AM EST Appointment [facility] Ultrasound [address] [place] [phone] 01/07/2025 9:40 AM EDT Office Visit Gastroenterology - [place] [address] [facility] [address] [place] [phone] Waldo Kerr DO [address] [facility] [address] [place] [address] documented as of this encounter Visit Diagnoses Not on filedocumented in this encounter Discontinued Medications Medication Sig Discontinue Reason Start Date End Da te omeprazole (PriLOSEC) [address] capsule Take 1 capsule (40 mg total) by mouth 1 (one) time each day. Do not crush or chew. Reorder 08/28/2024 documented as of this encounter Historical Medications * This list may reflect changes made after this encounter. Medication Sig Dispensed Refills Start Date End Date omeprazole (PriLOSEC) [address] capsule Take 1 capsule (40 mg total) by mouth 1 (one) time each day. Do not crush or chew. 08/28/2024 added in this encounter Care Teams Weigher And Mixer Relationship Specialty Start Date End Date Jah Root [address] [place], [place] PCP - General 04/29/24 documented as of this encounter
--- OUTSIDE RECORDS SUMMARY | 2024-10-05 15:22 | XMS_ITS | Encounter Summary ---
Author Organization [employer] Address [address] [facility] [address] 7[address] [place] [address] Care Team Providers Care Wellfield Technician Name Role Phone Jah Root MD Primary Care Prov ider Reason for Visit * Reason Comments Dizziness Numbness Encounter Details Date Type Department Care Team (Late st Contact Info) Description 10/03/2024 9:00 AM EST Office Visit [facility] [address] [place] [address] Alex Pineda MD [address] [place] [address] Benign paroxysmal positional vertigo due to bilateral vestibular disorder (Primary Dx); Numbness and tingling Social History Tobacco Use Types Packs/Day Years [...] AM EDT documented as of this encounter Last Filed Vital Signs Vital Sign Reading Time Taken Comments Blood Pressure 137/78 10/03/2024 9:04 AM EST Pulse 79 10/03/2024 9:04 AM EST Temperature 37.1 ??C (98.8 ??F) 10/03/2024 9:04 AM ES T Respiratory Rate 19 10/03/2024 9:04 AM EST Oxygen Saturation - - Inhaled Oxygen Concentration - - Weight 73.8 kg (162 lb 9.6 oz) 10/03/2024 9:04 A M EST Height 164.3 cm (5' 4.7 ) 10/03/2024 9:04 AM EST Body Mass Index 27.31 10/03/2024 9:04 AM EST documented in this encounter Progress Notes * Alex Pineda MD - 10/03/2024 9:00 AM EST Subjective History was provided by the patient. Radha Rodarte is a 38 y.o. female who presents for evaluation of dizziness and nausea for 3 days. Denies F/C. Denies vomiting or diarrhea. No cough, congestion, or rhinorrhea. Denies recent travel. Feels like the room is spinning around. Symptoms occurring at rest. Also reports numbing and tingling sensation at fingertips and toes. Denies CP/SOB/ELLIOTT. Objective Vitals: 10/03/24 0904 BP: 137/78 BP Location: Left arm Patient Position: Sitting BP Cuff Size: Adult Pulse: 79 Resp: 19 Temp: 98.8 ??F (37.1 ??C) TempSrc: Oral Weight: 162 lb 9.6 oz (73.8 kg) Height: 5' 4.7 (1.643 m) Physical Exam Vitals reviewed. Constitutional: Appearance: Normal appearance. She is normal weight. HENT: Head: Normocephalic and atraumatic. Right Ear: Tympanic membrane, ear canal and external ear normal. Left Ear: Tympanic membrane, ear canal and external ear normal. Nose: Nose normal. Mouth/Throat: Mouth: Mucous membranes are moist. Pharynx: Oropharynx is clear. Eyes: Conjunctiva/sclera: Conjunctivae normal. Pupils: Pupils are equal, round, and reactive to light. Comments: Horizontal nystagmus with Randall-Hallpike maneuver bilaterally Cardiovascular: Rate and Rhythm: Normal rate and regular rhythm. Heart sounds: Normal heart sounds. Pulmonary: Effort: Pulmonary effort is normal. Breath sounds: Normal breath sounds. Musculoskeletal: General: Normal range of motion. Cervical back: Normal range of motion and neck supple. Skin: General: Skin is warm and dry. Neurological: General: No focal deficit present. Mental Status: She is alert and oriented to person, place, and time. Mental status is at baseline. Cranial Nerves: No cranial nerve deficit. Sensory: No sensory deficit. Motor: No weakness. Coordination: Coordination normal. Gait: Gait normal. Deep Tendon Reflexes: Reflexes normal. Psychiatric: Mood and Affect: Mood normal. Behavior: Behavior normal. Thought Content: Thought content normal. Judgment: Judgment normal. Iris was seen today for dizziness and numbness. Diagnoses and all orders for this visit: Benign paroxysmal positional vertigo due to bilateral vestibular disorder (Primary) - meclizine (Antivert) 25 MG tablet; Take 1 tablet (25 mg) by mouth if needed in the morning, at noon, and at bedtime for dizziness or nausea for up to 7 days. - CBC auto differential; Future - TSH W/Reflex to FT4; Future - Vitamin B12/Folate, Serum Panel; Future Numbness and tingling - CBC auto differential; Future - TSH W/Reflex to FT4; Future - Vitamin B12/Folate, Serum Panel; Future Patient presents to [facility] due to 3-day duration of dizziness and nausea No URI symptoms Denies any recent travel Positive Randall-Hallpike maneuver; otherwise non-focal, normal neurologic exam Also reports distal (fingers/toes) numbness and tingling Will check CBC, TSH, and Vitamin B12 Trial of Meclizine prn Potential adverse effects of the medication reviewed Reviewed modified Masood's self-treatment exercises reviewed Handout provided Indications for UC/ER use reviewed Advised to contact the clinic if persistent or worsening symptoms documented in this encounter Plan of Treatment Upcoming Encounters Date Type Department Care Team (Late st Contact Info) Description 11/10/2024 11:30 AM EST Office Visit [facility] [address] [place], [place] [phone] Bhupinder Cifuentes MD [address] [place], [place] [phone] documented as of this encounter Procedures Procedure [...] to bilateral vestibular disorder Numbness and tingling documented in this encounter Results * Vitamin B12/Folate, Serum Panel (10/05/2024 10:38 AM EST) Vitamin B12 245 200 - 900 pg/mL [facility] Comment:NORMAL 200-900 PG/ML INDETERMINATE 160-199 PG/ML DEFICIENT < 160 PG/ML Folate 5.2 > or = 4.0 ng/mL [facility] Comment:Reference Values:> o r = 4.0 ng/mL< 4.0 ng/mL suggests folate deficiency Methotrexate, aminopterin and folinic acid(leucovorin) are chemotherapeutic agents whose molecularstructures are similar to folate; therefore, the Architectfolate assay cannot be used for patients using these drugs. Blood Venous blood specimen / Unknown 10/05/2024 10:38 AM EST 10/05/2024 2:21 PM EST Alex Pineda MD LAB BLOOD ORDERABLES Final Resul t Performing Organization Address City/[facility]/ZIP Co de Phone Number [facility] [address] [place] [phone] * TSH W/Reflex to FT4 (10/05/2024 10:38 AM EST) TSH reflex Free T4 2.22 0.32 - 4.0 uIU/mL [facility] Blood Venous blood specimen / Unknown 10/05/2024 10:38 AM EST 10/05/2024 2:21 PM EST us Alex Pineda MD LAB BLOOD ORDERABLES Final Resul t Performing Organization Address [facility] Co de Phone Number [facility] [address] [place] [phone] * (ABNORMAL) CBC auto differential (10/05/2024 10:38 AM EST) White Blood Count 8.8 4.8 - 10.8 X10*3/uL [facility] Red Blood Count 5.06 4.20 - 5.50 X10*6/uL [facility] Hemoglobin 13.1 12.0 - 16.0 g/dl [facility] Hematocrit 39.6 37.0 - 47.0 % [facility] Mean Corpuscular Volume 78.3(L) 80.0 - 98.0 fL [facility] Mean Corpuscular Hemoglobin 25.9(L) 27.0 - 33.0 pg [facility] Mean Corpuscular HGB Conc 33.1 31.0 - 35.0 g/dl [facility] Red Cell Distribution Width 13.4 11.0 - 16.0 % [facility] Platelet Count 272 160 - 400 X10*3/uL [facility] Mean Platelet Volume 10.6 9.4 - 12.3 fL [facility] Neutrophils Percent Auto 67.5 45 - 73 % [facility] Imm Gran Pct Auto 0.3 0.0 - 0.4 % [facility] Lymphocytes Percent Auto 25.9 20 - 40 % [facility] Monocytes Percent Auto 5.0 2 - 11 % [facility] Eosinophils Percent Auto 0.6 0 - 4 % [facility] Basophils Percent Auto 0.7 0 - 2 % [facility] NRBC Pct Auto 0.0 0.0 - 0.2 /100WBC [facility] Neutrophils Absolute Auto 5.9 2.0 - 8.3 x10*3/uL [facility] Imm Gran Abs Auto 0.03 0.00 - 0.03 X10*3/uL [facility] Lymphocytes Absolute Auto 2.3 1.2 - 4.9 X10*3/uL [facility] Monocytes Absolute Auto 0.4 0.1 - 1.2 X10*3/uL [facility] Eosinophils Absolute Auto 0.1 0.0 - 0.4 X10*3/uL [facility] Basophils Absolute Auto 0.1 0.0 - 0.2 X10*3/uL [facility] NRBC Abs Auto 0.000 0.0 - 0.012 X10*3/uL [facility] Blood Venous blood specimen / Unknown 10/05/2024 10:38 AM EST 10/05/2024 2:21 PM EST us Alex Pineda MD LAB BLOOD ORDERABLES Final Resul t [facility] [address] [place] [phone] documented in this encounter Visit Diagnoses Diagnosis Benign paroxysmal positional vertigo due to bilateral vestibular disorder- Primary Numbness and tingling Disturbance of skin sensation documented in this encounter Additional Health Concerns Assessment Noted Time PHQ-9 Depression Total Score: 8 10/30/19 24 9:42 AM EST documented as of this encounter Care Teams Wellfield Technician Relationship Specialty Start Date End Date Jah Root MD [address] [place] [phone] PCP - General Internal Medicine 01/26/20 documented as of this encounter
--- OUTSIDE RECORDS SUMMARY | 2024-10-05 15:22 | XMS_ITS | Clinical Summary ---
Author Organization [facility] Address [address] [place], [place] [id number] Care Team Providers Care Medical Receptionist Biller Name Role Phone Jah Cobian MD Primary Care Provider [phone] Allergies No known active allergies Medications Medication Sig Dispensed Refills Start Date End Date Status norethindrone (AYGESTIN) 5 MG tablet Take 1 tablet (5 mg total) by mouth daily. 0 Active Active Problems Problem Noted Date Diagnosed Date Microcytic anemia 04/29/2024 Social History Tobacco Use Types Packs/Day Years Used Date Smoking Tobacco: Never Smokeless Tobacco: Never Tobacco Cessation:Counseling Given: Not Answered Alcohol Use Standard Drinks/Week Comments Not Currently 0 (1 standard drink = 0.6 oz pur e alcohol) Sex and Gender Information Value Date Recorded Sex Assigned at Not on file Gender Identity Not on file Sexual Orientation Not on file Job Start Date Occupation Industry Not on file Not on file Not on file Last Filed Vital Signs Vital Sign Reading Time Taken Comments Blood Pressure 81/52 05/26/2024 1:42 PM EDT Pulse 84 05/26/2024 1:42 PM EDT Temperature 36.8 ??C (98.3 ??F) 05/26/2024 1:42 PM ED T Respiratory Rate 18 05/26/2024 1:42 PM EDT Oxygen Saturation 100% 05/26/2024 1:42 PM EDT Inhaled Oxygen Concentration - - Weight 74.5 kg (164 lb 3.2 oz) 05/06/2024 1:34 P M EDT Height 157.5 cm (5' 2 ) 05/06/2024 1:34 PM EDT Body Mass Index 30.03 05/06/2024 1:34 PM EDT Plan of Treatment Health Maintenance Due Date Last Done Comments Hepatitis C Screening 1984 COVID-19 Vaccine (#1) 06/06/1985 Depression Screening 1996 BMI Counseling 2002 Preventative Health Evaluation 2002 Cervical Cancer Screening (Pap Smear) 2005 DTap / Tdap / Td (6 - Td or Tdap) 06/29/2021 06/29/2011, 03/29/1997, 07/10/1990, Additional history exists Influenza Vaccine (#1) 2024 06/20/2016, 2014 Hepatitis B Vaccines Completed 03/29/1997, 06/02/1996, 04/06/1996 Pneumococcal Vaccine Aged Out No long er eligible based on patient's age to complete this topic RSV Ped < 20 months Aged Out No longe r eligible based on patient's age to complete this topic Care Teams Medical Receptionist Biller Relationship Specialty Start Date End Date Jah Cobian MD [address] [place] [phone] PCP - General Internal Medicine 04/29/24
--- OUTSIDE RECORDS SUMMARY | 2024-10-05 15:22 | XMS_ITS | Encounter Summary ---
Author Organization [facility] Address [address] [place] [address] Care Team Providers Care Automation Technologist Name Role Phone Jah Root Primary Care Provide r Reason for Visit * Reason Onset Date Comments PROVIDER CALL BACK 09/29/2024 Encounter Details Date Type Department Care Team (Late st Contact Info) Description 09/29/2024 Telephone Gastroenterology - [place] [address] [place] [phone] Waldo Kerr DO [address] [place] [address] PROVIDER CALL BACK Social History Tobacco Use Types Packs/Day Years [...] Progress Notes * Tiny Lawrence MA - 09/30/2024 9:43 AM EST Spoke to pt. See result note. * Katt Smiley - 09/29/2024 3:39 PM EST Patient calling again to go over MRI results * Shannen Wagner - 09/29/2024 8:53 AM EST Patient calling back in regards to MRI results documented in this encounter Plan of Treatment Upcoming Encounters Date Type Department Care Team (Late st Contact Info) Description 10/12/2024 7:00 AM EST Appointment [facility] Ultrasound [address] [place] [phone] 01/07/2025 9:40 AM EDT Office Visit Gastroenterology - [place] [address] [facility] [address] [facility] [address] [place] [phone] Waldo Kerr DO [address] [facility] [address] [place] [address] documented as of this encounter Visit Diagnoses Not on filedocumented in this encounter Care Teams Automation Technologist Relationship Specialty Start Date End Date Jah Root [address] [place], [place] PCP - General 04/29/24 documented as of this encounter
--- OUTSIDE RECORDS SUMMARY | 2024-10-05 15:22 | XMS_ITS | Clinical Summary ---
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 11/17/2019 Active docusate sodium (COLACE) 100 mg capsule Take 1 capsule by mouth daily for 30 days. 01/09/2021 Active famotidine (PEPCID) 40 mg tablet Take 1 Tablet by mouth at bedtime. Active naproxen (NAPROSYN) 500 mg tablet TAKE 1 TABLET BY MOUTH 2 TIMES DAILY FOR 360 DAYS. 03/23/2024 03/18/2025 Active pantoprazole (PROTONIX) 20 mg EC tablet Take 20 mg by mouth daily. Active polyethylene glycol (MIRALAX) 17 gram packet Take 17 g by mouth daily for 3 days. 12/19/2018 Active IBUPROFEN ORAL Take 1 Tablet by mouth every 6 hours as needed for Pain 06/14/2023 Active bisacodyL (DULCOLAX) 5 mg EC tablet Take by mouth. Take 2 tablets by mouth right before your first dose of liquid prep. Active polyethylene glycol (Golytely) 236-22.74-6.74 -5.86 gram solution Take 4L by mouth once for one dose. May substitue any PEG. Starting at 6PM the night before your procedure drink 1 8oz glasses at your own pace until you complete half of the gallon. Finish 2nd half of the gallon 5 hours before your procedure. 4000 mL 08/12/2024 Active bisacodyL (DULCOLAX) 5 mg EC tablet Take 2 tablets by mouth right before beginning bowel prep. See instructions provided by the office 2 tablet 08/12/2024 Active omeprazole (PriLOSEC) [address] capsule TAKE 1 CAPSULE BY MOUTH 1 TIME EACH DAY. DO NOT CRUSH OR CHEW. 90 capsule 3 09/01/2024 Active Active Problems Problem Noted Date Diagnosed Date Subclinical hypothyroidism 04/01/2024 Menorrhagia with irregular cycle 03/31/2024 Overview (06/09/2024): Last Assessment & Plan: I recommended EMB today for diagnosis of thickened endometrium as well as therapeutic reasons as may help bleeding slow. Will also switch to Aygestin to help bleeding stop. TSH ordered. She was counseled that she has to be certain that she no longer wishes to conceive prior to performing hysterectomy. She voiced her feeling that she is done with child bearing and desires hysterectomy. TL form signed. Procedure Note Indication for Procedure Encounter Diagnoses Name Primary? ? Menorrhagia with irregular cycle Yes ? Iron deficiency anemia due to chronic blood loss HCG not done as had negative UPT in ED and has not been sexually active in 2 months. The patient was consented for an endometrial biopsy. She was placed in the lithotomy position and a bimanual exam was performed revealing an anteverted uterus. A sterile speculum was placed. The cervix was cleansed with betadine. A single-toothed tenaculum was placed on the anterior lip of the cervix. The uterus sounded to 10 cm in length. One pass with a 5 mm pipelle was performed with a moderate amount of tissue and clot returning. This tissue was sent to pathology for further evaluation. The tenaculum was removed and the sites appeared hemostatic. The speculum was also removed. The patient tolerated the procedure well. We discussed postprocedure cramping and light bleeding. Advised to avoid anything in the vagina for three days. Advised to call with increasing pain, heavy bleeding, or fever. Pt will be informed of results when available. Anemia 08/03/2022 Overview (06/09/2024): Hgb 10.5, Fe supplementation started Last Assessment & Plan: Patient sent for repeat Hgb today. Will request expedited referral to Hematology for iron infusion. Fibroid uterus 11/15/2020 Overview (06/09/2024): 11/10/2020 FINDINGS: The uterus measures 10.6 x 6.4 x 7.4 cm, and contains one fibroid. There is a 4.0 x 3.1 x 3.9 cm left anterior fundal subserosal fibroid. ?? Endometrial stripe measures 15 mm. 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 Breast cyst, left 04/03/2019 Overview (06/09/2024): 03/31/2019 8.6 x11.0 x 15.1mm solid mass, favored to be fibroadenoma- Left breast cyst, recommend u/s guided core biopsy, with tissue marker, this was discussed with pt at time of visit, and biopsy to be scheduled Encounters Date Type Department Care Team Description 09/29/2024 Telephone Gastroenterology [facility] 175 [facility] 175 [facility] [address] [place] [address] Osbaldo Kerr DO PROVIDER CALL BACK 09/22/2024 9:58 AM EST - 09/22/2024 11:59 PM EST Hospital Encounter Radiology Department - [address] [phone] Liver lesion Discharge Disposition: Home or Self Care 09/07/2024 Telephone Gastroenterology - [place] [address] [address] Osbaldo Kerr DO provider call back (CT order) 08/27/2024 Telephone Gastroenterology [facility] [address] [address] Osbaldo Kerr DO provider call back 08/26/2024 3:07 PM EST Anesthesia Event [facility] Endoscopy [address] [place] [phone] Augustine Dickens MD Chang, Ling, CRNA 08/26/2024 2:33 PM EST - 08/26/2024 11:59 PM EST Hospital Encounter [facility] Endoscopy [address] [place] [phone] Osbaldo Kerr DO Dasilva, John E, MD Noninfective gastroenteritis and colitis, unspecified; Iron deficiency anemia, unspecified Discharge Disposition: Home or Self Care 08/20/2024 2:00 PM EST Office Visit Obstetrics & Gynecology - [address] [address] Germaine Robles CNM Encounter for well woman exam with routine gynecological exam (Primary Dx); Acute vaginitis; Screening breast examination; Screen for STD (sexually transmitted disease) 08/04/2024 Telephone Gastroenterology [facility] [address] [address] Osbaldo Kerr DO from Last 3 Months Surgical History Surgery Date Site/Laterality Comments TONSILLECTOMY ADENOIDECTOMY, BILATERAL MYRINGOTOMY AND TUBES PROCEDURE: WI TONSILLECTOMY & ADENOIDECTOMY <AGE 11 CHOLECYSTECTOMY UTERINE FIBROID SURGERY 09/09/2021 - 09/08/2022 N/A Medical History Medical History Date Comments Anxiety state DX:Anxiety state Anemia DX:Anemia Gestational diabetes mellitus 2016 DX :Gestational diabetes mellitus GERD (gastroesophageal reflux disease) Family History Medical History Relation Name Comments No Known Problems Brother Coronary artery disease Father Hypertension Father Arthritis Mother Spontaneous Abortions Sister 1 No Known Problems Sister 2 No Known Problems Sister 3 No Known Problems Sister 4 No Known Problems Sister 5 Breast cancer Neg Hx Ovarian cancer Neg Hx Uterine cancer Neg Hx Relation Name Status Comments Brother Alive Father Alive Mother Alive Sister 1 Alive Sister 2 Alive Sister 3 Alive Sister 4 Alive Sister 5 Alive Social History Tobacco Use Types Packs/Day Years [...] file Not on file Not on file Obstetrics History Para Term AB IAB SAB Ectopic Multiple Livin g Live Births 3 3 3 3 3 Date Outcome GA Total Labor Labor/2nd/3rd Weight Sex Type Anes PTL Gemma A1 A5 Name Clin 004 Term 40w 0d 3912 g (138 oz) M Vag-S pont Epidur al N Livin g Complications:None Delivery Location:[facility] 007 Term 40w 0d 3912 g (138 oz) M Vag-S pont None N Livin g Complications:None Delivery Location:[facility] 016 Term 40w 0d 3175 g (112 oz) M Vag-S pont Epidur al N Livin g Complications:None Delivery Location:[facility] Last Filed Vital Signs Vital Sign Reading Time Taken Comments Blood Pressure 115/70 08/26/2024 3:56 PM EST Pulse 87 08/26/2024 3:56 PM EST Temperature 36.4 ??C (97.6 ??F) 08/26/2024 2:55 PM ES T Respiratory Rate 15 08/26/2024 3:56 PM EST Oxygen Saturation 99% 08/26/2024 3:56 PM EST Inhaled Oxygen Concentration - - Weight 75.3 kg (166 lb) 08/20/2024 2:10 PM EST Height 160 cm (5' 3 ) 08/20/2024 2:10 PM EST Body Mass Index 29.41 08/20/2024 2:10 PM EST Plan of Treatment Upcoming Encounters Date Type Department Care Team (Late st Contact Info) Description 10/12/2024 7:00 AM EST Appointment [facility] Ultrasound [address] [place] [phone] 01/07/2025 9:40 AM EDT Office Visit Gastroenterology - [place] 175 [facility] 175 [facility] 200 [place] [address] Osbaldo Kerr DO 175 [facility] 200 [place] [address] Health Maintenance Due Date Last Done Comments Pneumococcal Vaccine: Pediatrics (0 to 5 Years) and At-Risk Patients (6 to 64 Years) (1 of 2 - PCV) 1990 Hepatitis A Vaccines (1 of 2 - Risk 2-dose series) 12/05/2003 HPV Vaccines (3 - Risk 3-dose series) 10/30/2011 06/29/2011, 11/28/2007 Social Influencers of Health Screening 08/18/2022 COVID-19 Vaccine ( season) 2024 10/06/2021, 01/18/2021, 12/21/2020 Influenza Vaccine (#1) 2024 6, 05/30/2015, 07/28/2012 Depression Screening 10/30/2024 10/30/2023 Cervical Cancer Screening: HPV 07/10/2028 07/10/2023 Cholesterol Screening (Lipid Panel) 07/23/2029 07/23/2024 DTaP,Tdap,and Td Vaccines (8 - Td or Tdap) 07/21/2034 07/21/2024, 06/29/2011, 03/29/1997, Additional history exists MMR Vaccines Completed 07/10/1990, 04/09/1986 IPV Vaccines Completed 08/09/1992, 09/1985, 04/09/1985, Additional history exists Hepatitis B Vaccines Completed 03/29/1997, 06/02/1996, 04/06/1996 HIV Screening Completed 07/06/2021 Hepatitis C Screening Completed 08/20/2024, 023 HIB Vaccines Aged Out No longer eligi ble based on patient's age to complete this topic Meningococcal ACWY Vaccine Aged Out N o longer eligible based on patient's age to complete this topic RSV Immunization Patients Under 20 months Aged Out No longer eligible based on patient's age to complete this topic Varicella Vaccines Aged Out No longer eligible based on patient's age to complete this topic Procedures Procedure Name Priority Date/Time Associated Diagnosis Comments MR ABDOMEN WO AND W CONTRAST Routine 09/22/2024 10:39 AM EST Liver lesion EGD Routine 08/26/2024 3:35 PM EST Iron deficiency anemia, unspecified COLONOSCOPY Routine 08/26/2024 3:35 PM EST Noninfective gastroenteritis and colitis, unspecified TISSUE EXAM Routine 08/26/2024 3:19 PM EST Noninfective gastroenteritis and colitis, unspecified Iron deficiency anemia, unspecified MG MAMMO DIGITAL DIAGNOSTIC BILAT Routine 08/25/2024 9:35 AM EST TREPONEMA PALLIDUM ANTIBODY WITH REFLEX TO RPR AND PARTICLE AGGLUTINATION Routine 08/20/2024 2:45 PM EST Encounter for well woman exam with routine gynecological exam Screen for STD (sexually transmitted disease) HEPATITIS C ANTIBODY Routine 08/20/2024 2:45 PM EST Encounter for well woman exam with routine gynecological exam Screen for STD (sexually transmitted disease) TRICHOMONAS VAGINALIS ANTIGEN Routine 08/20/2024 2:39 PM EST Encounter for well woman exam with routine gynecological exam Acute vaginitis Screen for STD (sexually transmitted disease) CHLAMYDIA TRACHOMATIS AND NEISSERIA GONORRHOEAE PCR Routine 08/20/2024 2:39 PM EST Encounter for well woman exam with routine gynecological exam Screen for STD (sexually transmitted disease) WET PREP, GENITAL Routine 08/20/2024 2:3 9 PM EST Encounter for well woman exam with routine gynecological exam Acute vaginitis Screen for STD (sexually transmitted disease) HM HPV Routine 07/10/2023 from Last 3 Months or Most Recently Relevant to Health Maintenance Results * MR Abdomen wo and w [...] and with contrast for further evaluation. POS [id number] -------- FINAL REPORT -------- Dictated By: Svitlana Lacy Dictated Date: 09/22/2024 18:19 ET Assigned Physician: Svitlana Lacy Reviewed and Electronically Signed By: Svitlana Lacy Signed Date: 09/22/2024 19:07 ET Workstation ID: [id number] Transcribed By: Self Edit Transcribed Date: 09/22/2024 [...] CORRELATION: Abdominal ultrasound 02/21/2024, CT abdomen and lcehrn9409/03/2022 TECHNIQUE: Exam performed on a 1.5 Bernie [...] without and withcontrast for further evaluation. POS [id number] -------- FINAL REPORT -------- Dictated By: Svitlana Lacy Dictated Date: 09/22/2024 18:19 ET Assigned Physician: Svitlana Lacy Reviewed and Electronically Signed By: Svitlana Lacy Signed Date: 09/22/2024 19:07 ET Workstation ID: [id number] Transcribed By: Self Edit Transcribed Date: 09/22/2024 18:58 ET Osbaldo Kerr DO IMG MRI PROCEDURES * COLONOSCOPY Anesthesia - MAC; [facility] ENDOSCOPY (08/26/2024 3:35 PM EST) Anatomical Region Laterality Modality Endoscopy 08/26/2024 3:00 PM EST Impressions 08/26/2024 3:35 PM EST - Hemorrhoids found on perianal exam. ? - The entire examined colon is normal. Biopsied. ? - The examination was otherwise normal on direct and ? retroflexion views. Recommendation: ?- Discharge patient to home. ? - Resume previous diet. ? - Continue present medications. ? - Await pathology results. Narrative 08/26/2024 3:35 PM EST [facility] GI Patient Name: Radha Rodarte Procedure Date: 08/26/2024 3:00 PM Date of : 1985 Age: 38 Gender: Female Note Status: Finalized Attending MD: Osbaldo Kerr DO, [id number] Procedure Date No Time: 08/26/2024 Procedure: ? Colonoscopy Indications: ? Iron deficiency anemia, abdominal pain, change in ? bowel habits Providers: ? Osbaldo Kerr DO Referring MD: ?Osbaldo Kerr DO, Eunice Warner MD Medicines: ? Monitored Anesthesia Care Complications: ? No immediate complications. Estimated blood loss: ? Minimal. Estimated Blood Loss: ? Estimated blood loss was minimal. Procedure: ? Pre-Anesthesia Assessment: ? - - Prior to the procedure, a History and Physical was ? performed, and patient medications and allergies were ? reviewed. The patient is competent. The risks and ? benefits of the procedure and the sedation options and ? risks were discussed with the patient. All questions ? were answered and informed consent was obtained. ? Patient identification and proposed procedure were ? verified by the physician, the nurse, the ? anesthesiologist, the subject scientific research and the astro technician ? in the pre-procedure area in the endoscopy suite. ? Mental Status Examination: alert and oriented. Airway ? Examination: normal oropharyngeal airway and neck ? mobility. Respiratory Examination: clear to ? auscultation. CV Examination: normal. Prophylactic ? Antibiotics: The patient does not require prophylactic ? antibiotics. Prior Anticoagulants: The patient has ? taken no anticoagulant or antiplatelet agents. ASA ? Grade Assessment: II - A patient with severe systemic ? disease. After reviewing the risks and benefits, the ? patient was deemed in satisfactory condition to ? undergo the procedure. The anesthesia plan was to use ? monitored anesthesia care (MAC). Immediately prior to ? administration of medications, the patient was ? re-assessed for adequacy to receive sedatives. The ? heart rate, respiratory rate, oxygen saturations, ? blood pressure, adequacy of pulmonary ventilation, and ? response to care were monitored throughout the ? procedure. The physical status of the patient was ? re-assessed after the procedure. ? After I obtained informed consent, the scope was ? passed under direct vision. Throughout the procedure, ? the patient's blood pressure, pulse, and oxygen ? saturations were monitored continuously.The ? Colonoscope was introduced through the anus and ? advanced to the cecum, identified by appendiceal ? orifice and ileocecal valve. The colonoscopy was ? performed without difficulty. The patient tolerated ? the procedure well. The quality of the bowel ? preparation was good. Findings: ?Hemorrhoids were found on perianal exam. ? The colon (entire examined portion) appeared normal. ? Biopsies were taken with a cold forceps for histology. ? Estimated blood loss was minimal. ? The exam was otherwise without abnormality on direct ? and retroflexion views. Procedure Code(s): ? --- Professional --- ? 38628, Colonoscopy, flexible; with biopsy, single or ? multiple Diagnosis Code(s): ? --- Professional --- ? K64.9, Unspecified hemorrhoids ? D50.9, Iron deficiency anemia, unspecified CPT copyright 2020 [employer]. All rights reserved. The codes documented in this report are preliminary and upon sheep killer review may be revised to meet current compliance requirements. OSBALDO Kerr DO 08/26/2024 3:35:40 PM This report has been signed electronically.Osbaldo Kerr DO Number of Addenda: 0 Note Initiated On: 08/26/2024 3:00 PM Scope Withdrawal Time: 0 hours 3 minutes 27 seconds Scope In: 3:26:20 PM Scope Out: 3:33:54 PM ? Endoscopy Department at [facility] - [address] [place] [address], ? [place] [address] Procedure Note Osbaldo Kerr DO - 08/26/2024 [facility] GI Patient Name: Radha Rodarte Procedure Date: 08/26/2024 3:00 PM Date of : 1985 Age: 38 Gender: Female Note Status: Finalized Attending MD: Osbaldo Kerr DO, [id number] Procedure Date No Time: 08/26/2024 Procedure: Colonoscopy Indications: Iron deficiency anemia, abdominal pain, change in bowel habits Providers: Osbaldo Kerr DO Referring MD: Osbaldo Kerr DO, Eunice Warner MD Medicines: Monitored Anesthesia Care Complications: No immediate complications. Estimated blood loss: Minimal. Estimated Blood Loss: Estimated blood loss was minimal. Procedure: Pre-Anesthesia Assessment: - - Prior to the procedure, a History and Physicalwas performed, and patient medications and allergieswere reviewed. The patient is competent. The risks and benefits of the procedure and the sedation optionsand risks were discussed with the patient. Allquestions were answered and informed consent was obtained. Patient identification and proposed procedure were verified by the physician, the nurse, the anesthesiologist, the subject scientific research and thetechnician in the pre-procedure area in the endoscopy suite. Mental Status Examination: alert and oriented.Airway Examination: normal oropharyngeal airway and neck mobility. Respiratory Examination: clear to auscultation. CV Examination: normal. Prophylactic Antibiotics: The patient does not requireprophylactic antibiotics. Prior Anticoagulants: The patient has taken no anticoagulant or antiplatelet agents. ASA Grade Assessment: II - A patient with severesystemic disease. After reviewing the risks and benefits,the patient was deemed in satisfactory condition to undergo the procedure. The anesthesia plan was touse monitored anesthesia care (MAC). Immediately priorto administration of medications, the patient was re-assessed for adequacy to receive sedatives. The heart rate, respiratory rate, oxygen saturations, blood pressure, adequacy of pulmonary ventilation,and response to care were monitored throughout the procedure. The physical status of the patient was re-assessed after the procedure. After I obtained informed consent, the scope was passed under direct vision. Throughout theprocedure, the patient's blood pressure, pulse, and oxygen saturations were monitored continuously.The Colonoscope was introduced through the anus and advanced to the cecum, identified by appendiceal orifice and ileocecal valve. The colonoscopy was performed without difficulty. The patient tolerated the procedure well. The quality of the bowel preparation was good. Findings: Hemorrhoids were found on perianal exam. The colon (entire examined portion) appearednormal. Biopsies were taken with a cold forceps forhistology. Estimated blood loss was minimal. The exam was otherwise without abnormality ondirect and retroflexion views. Procedure Code(s): --- Professional --- 68217, Colonoscopy, flexible; with biopsy, singleor multiple Diagnosis Code(s): --- Professional --- K64.9, Unspecified hemorrhoids D50.9, Iron deficiency anemia, unspecified CPT copyright 2020 [employer]. All rights reserved. The codes documented in this report are preliminary and upon sheep killer reviewmay be revised to meet current compliance requirements. OSBALDO Kerr DO 08/26/2024 3:35:40 PM This report has been signed electronically.Osbaldo Kerr DO Number of Addenda: 0 Note Initiated On: 08/26/2024 3:00 PM Scope Withdrawal Time: 0 hours 3 minutes 27 seconds Scope In: 3:26:20 PM Scope Out: 3:33:54 PM Endoscopy Department at [facility] - [address] [place] [phone] IMPRESSION: - Hemorrhoids found on perianal exam. - The entire examined colon is normal. Biopsied. - The examination was otherwise normal on directand retroflexion views. Recommendation: - Discharge patient to home. - Resume previous diet. - Continue present medications. - Await pathology results. Osbaldo Kerr DO GI~PROCEDURE ORDERAB LES * EGD Anesthesia - MAC; [facility] ENDOSCOPY (08/26/2024 3:35 PM EST) Anatomical Region Laterality Modality Endoscopy 08/26/2024 3:10 PM EST Impressions 08/26/2024 3:24 PM EST - Moderate Schatzki ring. Dilated. ? - Erythematous mucosa in the stomach. Biopsied. ? - 3 cm hiatal hernia. ? - Normal examined duodenum. Biopsied. Recommendation: ?- Discharge patient to home. ? - Resume previous diet. ? - Continue present medications. ? - Await pathology results. ? - Follow an antireflux regimen. ? - Use Prilosec (omeprazole) 40 mg PO daily. Narrative 08/26/2024 3:24 PM EST [facility] GI Patient Name: Radha Rodarte Procedure Date: 08/26/2024 3:10 PM Date of : 1985 Age: 38 Gender: Female Note Status: Finalized Attending MD: Osbaldo Kerr DO, [id number] Procedure Date No Time: 08/26/2024 Procedure: ? Upper GI endoscopy Indications: ? Dysphagia Providers: ? Osbaldo Kerr DO Referring MD: ?Eunice Warner MD Medicines: ? Monitored Anesthesia Care Complications: ? No immediate complications. Estimated blood loss: ? Minimal. Estimated Blood Loss: ? Estimated blood loss was minimal. Procedure: ? Pre-Anesthesia Assessment: ? - - Prior to the procedure, a History and Physical was ? performed, and patient medications and allergies were ? reviewed. The patient is competent. The risks and ? benefits of the procedure and the sedation options and ? risks were discussed with the patient. All questions ? were answered and informed consent was obtained. ? Patient identification and proposed procedure were ? verified by the physician, the nurse, the ? anesthesiologist, the subject scientific research and the astro technician ? in the pre-procedure area in the endoscopy suite. ? Mental Status Examination: alert and oriented. Airway ? Examination: normal oropharyngeal airway and neck ? mobility. Respiratory Examination: clear to ? auscultation. CV Examination: normal. Prophylactic ? Antibiotics: The patient does not require prophylactic ? antibiotics. Prior Anticoagulants: The patient has ? taken no anticoagulant or antiplatelet agents. ASA ? Grade Assessment: II - A patient with severe systemic ? disease. After reviewing the risks and benefits, the ? patient was deemed in satisfactory condition to ? undergo the procedure. The anesthesia plan was to use ? monitored anesthesia care (MAC). Immediately prior to ? administration of medications, the patient was ? re-assessed for adequacy to receive sedatives. The ? heart rate, respiratory rate, oxygen saturations, ? blood pressure, adequacy of pulmonary ventilation, and ? response to care were monitored throughout the ? procedure. The physical status of the patient was ? re-assessed after the procedure. ? - - Prior to the procedure, a History and Physical was ? performed, and patient medications and allergies were ? reviewed. The patient is competent. The risks and ? benefits of the procedure and the sedation options and ? risks were discussed with the patient. All questions ? were answered and informed consent was obtained. ? Patient identification and proposed procedure were ? verified by the physician, the nurse, the ? anesthesiologist, the subject scientific research and the astro technician ? in the pre-procedure area in the endoscopy suite. ? Mental Status Examination: alert and oriented. Airway ? Examination: normal oropharyngeal airway and neck ? mobility. Respiratory Examination: clear to ? auscultation. CV Examination: normal. Prophylactic ? Antibiotics: The patient does not require prophylactic ? antibiotics. Prior Anticoagulants: The patient has ? taken no anticoagulant or antiplatelet agents. ASA ? Grade Assessment: II - A patient with severe systemic ? disease. After reviewing the risks and benefits, the ? patient was deemed in satisfactory condition to ? undergo the procedure. The anesthesia plan was to use ? monitored anesthesia care (MAC). Immediately prior to ? administration of medications, the patient was ? re-assessed for adequacy to receive sedatives. The ? heart rate, respiratory rate, oxygen saturations, ? blood pressure, adequacy of pulmonary ventilation, and ? response to care were monitored throughout the ? procedure. The physical status of the patient was ? re-assessed after the procedure. ? After obtaining informed consent, the endoscope was ? passed under direct vision. Throughout the procedure, ? the patient's blood pressure, pulse, and oxygen ? saturations were monitored continuously. The Olympus ? Gastroscope was introduced through the mouth, and ? advanced to the third part of duodenum. The upper GI ? endoscopy was accomplished without difficulty. The ? patient tolerated the procedure well. Findings: ?A moderate Schatzki ring was found at the ? gastroesophageal junction. A TTS dilator was passed ? through the scope. Dilation with an 18-19-20 mm ? balloon dilator was performed to 18 mm. The dilation ? site was examined and showed moderate improvement in ? luminal narrowing. Estimated blood loss was minimal. ? Diffuse moderately erythematous mucosa without ? bleeding was found in the stomach. Biopsies were taken ? with a cold forceps for histology. Estimated blood ? loss was minimal. ? A 3 cm hiatal hernia was present. ? The examined duodenum was normal. Biopsies were taken ? with a cold forceps for histology. Estimated blood ? loss was minimal. Procedure Code(s): ? --- Professional --- ? 16045, Esophagogastroduodenoscopy, flexible, ? transoral; with transendoscopic balloon dilation of ? esophagus (less than 30 mm diameter) ? 05310, 59, Esophagogastroduodenoscopy, flexible, ? transoral; with biopsy, single or multiple Diagnosis Code(s): ? --- Professional --- ? K22.2, Esophageal obstruction ? K31.89, Other diseases of stomach and duodenum ? K44.9, Diaphragmatic hernia without obstruction or ? gangrene ? R13.10, Dysphagia, unspecified CPT copyright 2020 [employer]. All rights reserved. The codes documented in this report are preliminary and upon sheep killer review may be revised to meet current compliance requirements. OSBALDO Kerr DO 08/26/2024 3:24:40 PM This report has been signed electronically.Osbaldo Kerr DO Number of Addenda: 0 Note Initiated On: 08/26/2024 3:10 PM Scope In: Scope Out: ? Endoscopy Department at [facility] - [address] [place] [address], ? [place] [id number] Procedure Note Osbaldo Kerr DO - 08/26/2024 [facility] GI Patient Name: Radha Rodarte Procedure Date: 08/26/2024 3:10 PM Date of : 1985 Age: 38 Gender: Female Note Status: Finalized Attending MD: Osbaldo Kerr DO, [id number] Procedure Date No Time: 08/26/2024 Procedure: Upper GI endoscopy Indications: Dysphagia Providers: Osbaldo Kerr DO Referring MD: Eunice Warner MD Medicines: Monitored Anesthesia Care Complications: No immediate complications. Estimated blood loss: Minimal. Estimated Blood Loss: Estimated blood loss was minimal. Procedure: Pre-Anesthesia Assessment: - - Prior to the procedure, a History and Physicalwas performed, and patient medications and allergieswere reviewed. The patient is competent. The risks and benefits of the procedure and the sedation optionsand risks were discussed with the patient. Allquestions were answered and informed consent was obtained. Patient identification and proposed procedure were verified by the physician, the nurse, the anesthesiologist, the subject scientific research and thetechnician in the pre-procedure area in the endoscopy suite. Mental Status Examination: alert and oriented.Airway Examination: normal oropharyngeal airway and neck mobility. Respiratory Examination: clear to auscultation. CV Examination: normal. Prophylactic Antibiotics: The patient does not requireprophylactic antibiotics. Prior Anticoagulants: The patient has taken no anticoagulant or antiplatelet agents. ASA Grade Assessment: II - A patient with severesystemic disease. After reviewing the risks and benefits,the patient was deemed in satisfactory condition to undergo the procedure. The anesthesia plan was touse monitored anesthesia care (MAC). Immediately priorto administration of medications, the patient was re-assessed for adequacy to receive sedatives. The heart rate, respiratory rate, oxygen saturations, blood pressure, adequacy of pulmonary ventilation,and response to care were monitored throughout the procedure. The physical status of the patient was re-assessed after the procedure. - - Prior to the procedure, a History and Physicalwas performed, and patient medications and allergieswere reviewed. The patient is competent. The risks and benefits of the procedure and the sedation optionsand risks were discussed with the patient. Allquestions were answered and informed consent was obtained. Patient identification and proposed procedure were verified by the physician, the nurse, the anesthesiologist, the subject scientific research and thetechnician in the pre-procedure area in the endoscopy suite. Mental Status Examination: alert and oriented.Airway Examination: normal oropharyngeal airway and neck mobility. Respiratory Examination: clear to auscultation. CV Examination: normal. Prophylactic Antibiotics: The patient does not requireprophylactic antibiotics. Prior Anticoagulants: The patient has taken no anticoagulant or antiplatelet agents. ASA Grade Assessment: II - A patient with severesystemic disease. After reviewing the risks and benefits,the patient was deemed in satisfactory condition to undergo the procedure. The anesthesia plan was touse monitored anesthesia care (MAC). Immediately priorto administration of medications, the patient was re-assessed for adequacy to receive sedatives. The heart rate, respiratory rate, oxygen saturations, blood pressure, adequacy of pulmonary ventilation,and response to care were monitored throughout the procedure. The physical status of the patient was re-assessed after the procedure. After obtaining informed consent, the endoscope was passed under direct vision. Throughout theprocedure, the patient's blood pressure, pulse, and oxygen saturations were monitored continuously. TheOlympus Gastroscope was introduced through the mouth, and advanced to the third part of duodenum. The upperGI endoscopy was accomplished without difficulty. The patient tolerated the procedure well. Findings: A moderate Schatzki ring was found at the gastroesophageal junction. A TTS dilator was passed through the scope. Dilation with an 18-19-20 mm balloon dilator was performed to 18 mm. Thedilation site was examined and showed moderate improvementin luminal narrowing. Estimated blood loss wasminimal. Diffuse moderately erythematous mucosa without bleeding was found in the stomach. Biopsies weretaken with a cold forceps for histology. Estimated blood loss was minimal. A 3 cm hiatal hernia was present. The examined duodenum was normal. Biopsies weretaken with a cold forceps for histology. Estimated blood loss was minimal. Procedure Code(s): --- Professional --- 84776, Esophagogastroduodenoscopy, flexible, transoral; with transendoscopic balloon dilation of esophagus (less than 30 mm diameter) 80850, 59, Esophagogastroduodenoscopy, flexible, transoral; with biopsy, single or multiple Diagnosis Code(s): --- Professional --- K22.2, Esophageal obstruction K31.89, Other diseases of stomach and duodenum K44.9, Diaphragmatic hernia without obstruction or gangrene R13.10, Dysphagia, unspecified CPT copyright 2020 [employer]. All rights reserved. The codes documented in this report are preliminary and upon sheep killer reviewmay be revised to meet current compliance requirements. OSBALDO Kerr DO 08/26/2024 3:24:40 PM This report has been signed electronically.Osbaldo Kerr DO Number of Addenda: 0 Note Initiated On: 08/26/2024 3:10 PM Scope In: Scope Out: Endoscopy Department at [facility] - [address] [place] [id number] IMPRESSION: - Moderate Schatzki ring. Dilated. - Erythematous mucosa in the stomach. Biopsied. - 3 cm hiatal hernia. - Normal examined duodenum. Biopsied. Recommendation: - Discharge patient to home. - Resume previous diet. - Continue present medications. - Await pathology results. - Follow an antireflux regimen. - Use Prilosec (omeprazole) 40 mg PO daily. Osbaldo Kerr DO GI~PROCEDURE ORDERAB LES * Tissue exam (08/26/2024 3:19 PM EST) Final Diagnosis A. Duodenum, biopsy: Duodenal mucosa with focal foveolar metaplasia. No increased intraepithelial lymphocytes or villous blunting identified. B. Gastric, Body, random biopsy: Gastric mucosa with mild chronic inactive gastritis. No Helicobacter pylori type gastritis identified. C. Esophagus, distal biopsy: Benign esophageal squamous mucosa with no specific pathologic change identified. D. Colon, random biopsy: Benign colonic mucosa with no specific pathologic change. No colitis identified. 08/27/2024 4:29 PM EST [facility] Gross Description A. Small Intestine, Duodenum, biopsy: Labeled duodenum biopsy . Received in formalin, are four irregular soft, roman-pink to red tissue fragments, approximately ranging from less than 0.1 cm to 0.3 cm in greatest diameters, which are wrapped in paper and submitted in toto in one cassette, four pieces, multiple levels. Please note: Small tissue fragments may not survive processing. B. Gastric, Body, random gastric biopsy: Labeled random gastric, bod . Received in formalin, are three irregular soft, roman-pink to red tissue fragments, approximately ranging from 0.2 cm to 0.3 cm in greatest diameters, which are wrapped in paper and submitted in toto in one cassette, three pieces, multiple levels. C. Esophagus, distal esophagus biopsy: Labeled distal esophagus . Received in formalin, are three irregular soft to friable, white-red tissue fragments, approximately ranging from 0.2 cm to 0.5 cm in greatest diameters, which are wrapped in paper and submitted in toto in one cassette, three pieces, multiple levels. D. Colon, random colon biopsy: Labeled random colon . Received in formalin, are five irregular soft, roman-pink tissue fragments, approximately ranging from 0.2 cm to 0.3 cm in greatest diameters, which are wrapped in paper and submitted in toto in one cassette, five pieces, multiple levels. dvb/DG 08/27/2024 4:29 PM EST [facility] Disclaimer Unless otherwise specified, all tissue is 10% NB formalin fixed and paraffin embedded. 08/27/2024 4:29 PM EST [facility] Tissue Duodenal structure / Unknown 08/26/2024 3:19 PM EST 08/26/2024 4:06 PM EST Tissue specimen (specimen) (Gastric, Body) 08/26/2024 3:20 PM EST 08/26/2024 4:06 PM EST Tissue specimen (specimen) Esophageal structure / Unknown 08/26/2024 3:21 PM EST 08/26/2024 4:06 PM EST Tissue specimen (specimen) (Colon) 08/26/2024 3:32 PM EST 08/26/2024 4:06 PM EST Osbaldo Kerr DO LAB PATHOLOGY ORDERA BLES [facility] [address] [place] [address], [place] [phone] * MG Mammo Digital Diagnostic bilat (08/25/2024 9:35 AM EST) Anatomical Region Laterality Modality Breast Bilateral Mammography Historical Provider IMMarie BI PROCEDURES * Hepatitis C antibody (08/20/2024 2:45 PM EST) Hepatitis C Antibody Negative Negative LAB CHEMISTRY METHOD 08/20/2024 5:07 PM EST [facility] Blood Venous blood specimen / Unknown Venipuncture / Unknown 08/20/2024 2:45 PM EST 08/20/2024 3:46 PM EST Germaine LOZA LAB BLOOD ORDERABLES Performing Organization Address City/[facility]/ZIP Co de Phone Number [facility] [address] [place] [address], [place] [phone] * Treponema pallidum antibody with reflex to RPR and particle agglutination (08/20/2024 2:45 PM EST) T. Pallidum Antibodies Negative Negative LAB CHEMISTRY METHOD 08/20/2024 4:41 PM EST [facility] Blood Venous blood specimen / Unknown Venipuncture / Unknown 08/20/2024 2:45 PM EST 08/20/2024 3:46 PM EST Germaine Robles [facility] BLOOD ORDERABLES [facility] [address] [place] [address], * Trichomonas vaginalis antigen (08/20/2024 2:39 PM EST) Pathologist [facility] Trichomonas vaginalis Negative Negative 08/20/2024 6:53 PM EST [facility] Swab Vaginal structure / Unknown Non-blood Collection / Unknown 08/20/2024 2:39 PM EST 08/20/2024 4:02 PM EST Germaine Robles [facility] MICROBIOLOGY - G ENERAL ORDERABLES [facility] [address] [place] [address], * Chlamydia trachomatis and Neisseria gonorrhoeae molecular study (08/20/2024 2:39 PM EST) Pathologist [facility] Neisseria gonorrhoeae PCR Negative Negative LAB MOLECULAR DIAGNOSTICS METHOD 08/21/2024 8:40 AM EST [facility] Chlamydia trachomatis PCR Negative Negative LAB MOLECULAR DIAGNOSTICS METHOD 08/21/2024 8:[address] [facility] Swab Cervix uteri structure / Unknown Non-blood Collection / Unknown 08/20/2024 2:39 PM EST 08/20/2024 4:02 PM EST Germaine Robles [facility] MICROBIOLOGY - G ENERAL ORDERABLES Performing Organization Address [facility]/ZIP Co de Phone Number [facility] [address] [place] [address], * Wet prep, genital (08/20/2024 2:39 PM EST) Clue Cells, Wet Prep Negative Negative 08/20/2024 6:53 PM EST [facility] Yeast, Wet Prep Negative Negative 08/20/2024 6:53 PM EST [facility] Trichomonas, Wet Prep Indeterminate Negative 08/20/2024 6:53 PM EST [facility] Comment:Refer to Trichomonas antigen. Swab Vaginal structure / Unknown Non-blood Collection / Unknown 08/20/2024 2:39 PM EST 08/20/2024 4:02 PM EST Germaine [facility] LAB MICROBIOLOGY - G ENERAL ORDERABLES Performing Organization Address [facility]/ZIP Co de Phone Number [facility] [address] [place] [address], * Cervical Cancer Screening: HPV (07/10/2023) Pathologist [facility] Cervical Cancer Screening: HPV No interpreta tion,abstr acted Historical Provider MD SHARAD Art from Last 3 Months or Most Recently Relevant to Health Maintenance 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
== END 2024-10-05 10:37 | disposition home or self-care (01) ==
LOC: HO.CHCLDS 10:36
PROVIDERS: Visit Provider Family Medicine
DX: H81.13 Benign paroxysmal vertigo, bilateral (principal); R20.0 Anesthesia of skin; R20.2 Paresthesia of skin
CPT/HCPCS: 36415; 82607; 82746; 84443; 85025

== ENCOUNTER 2024-11-13 16:12 | Emergency (ER) | payer MEDICAID, SELFPAY ==
--- NOTE | ~2024-11-13 | CT_ITS ---
CLINICAL HISTORY: head strike, pain, dizziness CT head without IV contrast Comparison: CT/REG - CT HEAD/BRAIN WO CON - 06/24/21 18:17 EDT Findings: The ventricles are normal in configuration. Basilar cisterns intact. No intracranial hemorrhage, mass-effect or midline shift. Left frontal parafalcine iso/hyper attenuating lesion measuring 10 mm likely a meningioma. Contrast-enhanced study would be helpful. No associated mass effect. The parenchyma is unremarkable in attenuation. Cid-white matter junction preserved. No evidence of acute large vessel or territorial ischemia. Brainstem and cerebellum unremarkable. The calvarium is intact. The imaged portion of the paranasal sinuses are clear. No mastoid effusions. The orbital contents are unremarkable. Impression: 1. No CT evidence of acute intracranial pathology. Left frontal parafalcine probable meningioma measuring 10 mm without mass effect contrast-enhanced study would be of further diagnostic value. This previously measured 6 mm. This document has been electronically signed by: Andrew Gerard MD on 11/13/2024 19:03:23
--- NOTE | ~2024-11-13 | CT_ITS ---
CLINICAL HISTORY: head strike, pain, dizziness CT cervical spine without intravenous contrast Comparison: CR - XR CERVICAL SPINE 3V - 01/31/21 14:23 EDT Findings: Craniocervical junction: No occipital condylar fractures. No evidence of atlantooccipital dissociation. The anterior and posterior arch and lateral masses of C1 are intact. Odontoid and atlanto-dental interval intact. The pars interarticularis of C2 is intact. There is normal vertebral body heights with no evidence of compression fracture. There is normal cervical alignment. No locked or perched facets. No spinous process fractures. Lordotic curvature is straightened. This is stable The retropharyngeal soft tissues are not widened. Segmental analysis as below (MR is more accurate in the evaluation of disc herniation and central canal pathology): C2-C3: No herniation or stenosis. C3-C4: No herniation or stenosis. C4-C5: Uncovertebral body spurs C5-C6: Uncovertebral body spurs C6-C7: Uncovertebral body spurs C7-T1: No herniation or stenosis. The bones are without evidence of lytic or blastic lesion. Lung apices are unremarkable. Impression: 1. Negative CT cervical spine for acute process. This document has been electronically signed by: Andrew Gerard MD on 11/13/2024 18:54:59
[2024-11-13 17:02] VITALS: BP 145/81; PULSE 71; RESP 16; TEMP 36.2; O2SAT 99; BMI 29.6
--- NOTE | 2024-11-13 17:19 | ED_ITS ---
HPI - General Adult General Chief complaint: Head Injury Stated complaint: figurine fell on head / dizzy Time Seen by Provider: 11/13/24 20:38 Source: patient and family ( spouse) Mode of arrival: ambulatory Limitations: no limitations History of Present Illness ED Provider: Dr. Rogelio Neumann HPI narrative: 38-year-old female with no significant past medical history who presents emergency department for evaluation of closed head injury. The patient was cleaning her bathroom shelf. She states that a heavy metal figurine fell off the shelf above her and struck her on the top of the head. Patient denied any loss of consciousness but experienced immediate headache and dizziness. She states that the dizziness as a room spinning like sensation which is worse with position change. She states the headache was initially a throbbing sensation but he was now resolved. She denied any nausea, vomiting, weakness, difficulty walking. Related Data Home Medications ?Medication ?Instructions ?Recorded ?Confirmed fluvoxamine 50 mg tablet 50 mg PO BEDTIME 02/26/22 11/14/23 gabapentin 100 mg capsule 100 mg PO TID 02/26/22 11/14/23 clonazepam 0.5 mg tablet 0.5 mg PO DAILY 04/12/22 11/14/23 albuterol sulfate 90 mcg/actuation 2 puff inhalation Q4H PRN wheezing 05/17/23 11/14/23 aerosol inhaler (Ventolin HFA) Previous Rx's ?Medication ?Instructions ?Recorded acetaminophen 500 mg tablet 1,000 mg (2 x 500 mg) PO QID PRN 06/24/21 (Tylenol Extra Strength) fever or pain #14 tabs famotidine 20 mg tablet (Pepcid) 20 mg PO BID 10 days #20 tabs 11/18/22 sucralfate 100 mg/mL oral 10 ml PO QID 90 days #3,600 mL 08/09/23 suspension (Carafate) dexlansoprazole 30 mg 30 mg PO .daily 90 days #90 caps 02/10/24 capsule,biphase delayed release (Dexilant) meclizine 25 mg tablet (Dramamine 25 mg PO TID PRN dizziness #20 tabs 11/13/24 Less Drowsy) Allergies Allergy/AdvReac Type Severity Reaction Status Date / Time No Known Allergies Allergy Verified 11/13/24 17:04 Review of Systems 2 Review of Systems: Yes all other systems are reviewed and are negative [facility] Past Medical History Medical History (Updated 11/15/24 @ 11:32 by Rogelio Neumann MD) Post-cholecystectomy syndrome Hemorrhoids with complication Dysphagia Candidiasis of mouth and esophagus Odynophagia Surgical History History of laparoscopic cholecystectomy (02/28/22) Hx of laparoscopy History of tonsillectomy History of esophagogastroduodenoscopy (EGD) Hx of colonoscopy Family History Family History Father CVD (cardiovascular disease) Colon polyps Hypercholesteremia Diabetes Mother Thyroid condition CVD (cardiovascular disease) Fibromyalgia Heart problem Hypertension Sister HIV (human immunodeficiency virus infection) Brother No problems noted. Son No problems noted. Son No problems noted. Social History Social History Household Members: Children Alcohol intake: never Patient Tobacco Use Status: Never used Tobacco Smoked in Last 30 Days: No Use of substances other than those prescribed or required for medical reasons: No Advance Directives: No Advance Directives Information Provided: Yes Do you have a plan to hurt others: No Plan Patient : No service: No Current occupational status: employed Physical Exam ED Vital Signs: Vital Signs - 24 hr 11/13/24 17:02 11/13/24 20:23 Temperature 97.1 F Pulse Rate 71 Respiratory Rate 16 Blood Pressure 145/81 H Pulse Oximetry 99 Oxygen Delivery Method Room Air Room Air BMI result Body Mass Index 29.6 Vital signs revealed an elevated blood pressure otherwise unremarkable Exam: General: Awake, alert in no distress Head: Normocephalic, patient does have tenderness with palpation of her mid scalp with no hematoma or break in the skin noted. EENT: PERRL, extraocular muscles intact, positive lateral nystagmus, Lids normal, sclera normal, conjunctiva normal, nose normal , ears normal, throat without erythema or exudates Neck: Supple, no adenopathy Lung: breath sounds symmetric, no wheezing, rales or rhonchi Chest: symmetric movement, nontender Heart: regular rate and rhythm, normal S1, S2 no murmurs or rubs Abdomen: soft, non-tender, nondistended, normal bowel sounds Back: no vertebral tenderness, no CVAT Extremities: no deformities, moves all extremities symmetrically Neuro: Awake, alert, oriented, normal speech Cranial nerves:cranial nerves intact Strength: 5/5 symmetric,moves all extremities symmetrically Cerebellar: Good [id number]-nq-xazm-to-finger good normal rapid finger movement, normal heel to gloria, normal gait Psych: Pleasant, cooperative Course Course Course Narrative: RME performed by Rebecca Wiseman PA-C. Patient is a 38 year old assigned female at presenting to the emergency department with a headache after a statuette fell on it. Patient states she was cleaning when something heavy fell on her head. Detailed physical exam and review of systems are deferred to the manager quality compliance. Imaging ordered. Patient placed back in the waiting room pending room availability and results. Medications Administered Discontinued Medications Generic Name Dose Route Start Last Admin Trade Name Arvind PRN Reason Stop Dose Admin Meclizine HCl 25 mg 11/13/24 20:54 11/13/24 21:17 Meclizine Hcl 25 Mg Tablet PO 11/13/24 20:55 Not Given ONCE STA Medical Decision Making Medical Decision Making MDM Narrative: 38-year-old female with no significant past medical history who presents emergency department for evaluation of closed head injury caused by a heavy metal screen falling off a shelf and striking her on the top of her head. Patient developed an immediate headache and vertigo like dizziness, she had no loss of consciousness. Headache resolved at the time of my evaluation but she still was complaining of dizziness worse with position change. Vital signs revealed an elevated blood pressure otherwise unremarkable. Exam did reveal tenderness with palpation of the top of her head did no obvious hematoma or break in his skin. Patient's neurologic exam was unremarkable. Patient did have lateral nystagmus. Differential diagnosis: Includes but is not limited to Skull fracture, intracranial bleed, concussion, vertigo, electrolyte abnormalities, anemia Course: my interpretation of the patient's laboratory evaluation: CBC was normal with no anemia, she did have a low MCV of 77.0. CMP was normal. CT scan of the head revealed no acute fracture or bleed. CT scan of the neck revealed no acute fracture. Patient was findings and presentation are consistent with closed head injury with concussion causing vertigo. Patient was given meclizine 25 mg orally. Patient was given prescription for meclizine 3 times a day as needed for vertigo /dizziness. She was given printed and verbal instructions and discharged home. The CT scan did reveal a problem meningioma measuring approximately 10 mm without mass effect. This is incidental and not related to her presentation. I did discuss this with the patient and the patient's . The patient will need to follow-up with her PCP to get an MRI as an outpatient and to determine a follow-up plan to monitor the growth of the meningioma. Admission/Observation Consideration of admission/observation: Escalation of care including admission/observation considered ( Yes) Lab Data MDM Lab Attestation statement: I reviewed the patient's lab results. 11/13/24 20:23 11/13/24 20:23 Labs: Lab Results 11/13/24 Range/Units 20:23 WBC 9.3 (4.8-10.8) X10*3/uL RBC 4.69 (4.20-5.50) X10*6/uL Hgb 12.3 (12.0-16.0) g/dl Hct 36.1 L (37.0-47.0) % MCV 77.0 L (80.0-98.0) fL MCH 26.2 L (27.0-33.0) pg MCHC 34.1 (31.0-35.0) g/dl RDW 13.3 (11.0-16.0) % Plt Count 243 (160-400) X10*3/uL MPV 9.6 (9.4-12.3) fL Immature Gran % (Auto) 0.3 (0.0-0.4) % Neut % (Auto) 57.5 (45-73) % Lymph % (Auto) 34.4 (20-40) % Saline % (Auto) 5.9 (2-11) % Eos % (Auto) 1.3 (0-4) % Baso % (Auto) 0.6 (0-2) % Lymph # (Auto) 3.2 (1.2-4.9) X10*3/uL Saline # (Auto) 0.6 (0.1-1.2) X10*3/uL Eos # (Auto) 0.1 (0.0-0.4) X10*3/uL Baso # (Auto) 0.1 (0.0-0.2) X10*3/uL Abs Immat Gran (auto) 0.03 (0.00-0.03) X10*3/uL Absolute Neuts (auto) 5.3 (2.0-8.3) x10*3/uL Absolute Nucleated RBC 0.000 (0.0-0.012) X10*3/uL Nucleated RBC % (auto) 0.0 (0.0-0.2) /100WBC Sodium 141 (135-145) mmol/L Potassium 4.3 (3.3-5.1) mmol/L Chloride 108 (96-108) mmol/L Carbon Dioxide 25 (22-29) mmol/L Anion Gap 12 (12-20) BUN 11 (9-16) mg/dL Creatinine 0.64 (0.5-1.4) mg/dL Estim Creat Clear Calc 115.0 Estimated GFR > 60 Random Glucose 91 (60-115) mg/dL Calcium 9.2 (8.4-10.2) mg/dL Total Bilirubin 0.3 (0.0-1.0) mg/dL AST 17 (5-31) U/L ALT 13 (0-31) U/L Alkaline Phosphatase 80 (39-117) U/L Total Protein 7.7 (6.5-8.0) g/dL Albumin 4.1 (3.5-5.0) g/dL Radiology Impression Discussion of test interpretation with radiology: I have reviewed the radiologist's reading. Radiologist Impression: CT head without IV contrast Comparison: CT/REG - CT HEAD/BRAIN WO CON - 06/24/21 18:17 EDT Findings: The ventricles are normal in configuration. Basilar cisterns intact. No intracranial hemorrhage, mass-effect or midline shift. Left frontal parafalcine iso/hyper attenuating lesion measuring 10 mm likely a meningioma. Contrast-enhanced study would be helpful. No associated mass effect. The parenchyma is unremarkable in attenuation. Cid-white matter junction preserved. No evidence of acute large vessel or territorial ischemia. Brainstem and cerebellum unremarkable. The calvarium is intact. The imaged portion of the paranasal sinuses are clear. No mastoid effusions. The orbital contents are unremarkable. Impression: 1. No CT evidence of acute intracranial pathology. Left frontal parafalcine probable meningioma measuring 10 mm without mass effect contrast-enhanced study would be of further diagnostic value. This previously measured 6 mm. This document has been electronically signed by: Andrew Gerard MD on 11/13/2024 19:03:23 CT cervical spine without intravenous contrast Comparison: CR - XR CERVICAL SPINE 3V - 01/31/21 14:23 EDT Findings: Craniocervical junction: No occipital condylar fractures. No evidence of atlantooccipital dissociation. The anterior and posterior arch and lateral masses of C1 are intact. Odontoid and atlanto-dental interval intact. The pars interarticularis of C2 is intact. There is normal vertebral body heights with no evidence of compression fracture. There is normal cervical alignment. No locked or perched facets. No spinous process fractures. Lordotic curvature is straightened. This is stable The retropharyngeal soft tissues are not widened. Segmental analysis as below (MR is more accurate in the evaluation of disc herniation and central canal pathology): C2-C3: No herniation or stenosis. C3-C4: No herniation or stenosis. C4-C5: Uncovertebral body spurs C5-C6: Uncovertebral body spurs C6-C7: Uncovertebral body spurs C7-T1: No herniation or stenosis. The bones are without evidence of lytic or blastic lesion. Lung apices are unremarkable. Impression: 1. Negative CT cervical spine for acute process. This document has been electronically signed by: Andrew Gerard MD on 11/13/2024 18:54:59 Independent Historian Clinical information obtained from an independent historian. History obtained from or confirmed by: Spouse Prescription Management I considered prescription management with: Other ( anti vertigo medication: Meclizine) Discharge Plan Discharge Clinical Impression: Closed head injury, Concussion, Headache, Vertigo, Meningioma Patient Disposition: Home, Self-Care Instructions: Vertigo (ED), Head Injury (ED), Meningioma (ED) Additional Instructions: The CT scan of your head did not reveal any skull fracture or bleeding in the brain which is reassuring. The CT scan of your neck revealed no broken bones in your neck which again is reassuring Your symptoms are caused by the metal figurine hitting you in the head and causing a concussion. Concussions can give you headaches and room spinning dizziness. Take ibuprofen 200 mg pills, 2 pills every 6 hours as needed for pain or fever. Take Tylenol (acetaminophen) 500 mg pills, 2 pills every 6 hours as needed for pain or fever. Take meclizine 25 mg pills, 1 pill 3 times a day for the next 3 days for dizziness then as needed for dizziness. ?This medication will make you sleepy. ?Do not drive or work while taking this medication. The CT scan did reveal a small 10 mm mass in your brain which the radiologist believes is a meningioma. If this is a meningioma, this is a very slow-growing tumor unusually does not need any medications but needs to be followed with MRIs yearly and then as directed by your doctors. I want you to call your doctor's office to get a follow-up appointment to schedule an MRI as an outpatient to make sure that this is a meningioma and to talk about getting yearly follow-up MRIs as per your doctors directions. Follow-up with your doctor in 2 days. Please return to the emergency department if your symptoms get worse or if you develop any symptoms that are concerning to you. CT head without IV contrast Comparison: CT/REG - CT HEAD/BRAIN WO CON - 06/24/21 18:17 EDT Findings: The ventricles are normal in configuration. Basilar cisterns intact. No intracranial hemorrhage, mass-effect or midline shift. Left frontal parafalcine iso/hyper attenuating lesion measuring 10 mm likely a meningioma. Contrast-enhanced study would be helpful. No associated mass effect. The parenchyma is unremarkable in attenuation. Cid-white matter junction preserved. No evidence of acute large vessel or territorial ischemia. Brainstem and cerebellum unremarkable. The calvarium is intact. The imaged portion of the paranasal sinuses are clear. No mastoid effusions. The orbital contents are unremarkable. Impression: 1. No CT evidence of acute intracranial pathology. Left frontal parafalcine probable meningioma measuring 10 mm without mass effect contrast-enhanced study would be of further diagnostic value. This previously measured 6 mm. This document has been electronically signed by: Andrew Gerard MD on 11/13/2024 19:03:23 Dictated By: Andrew Gerard MD Prescriptions: New meclizine [Dramamine Less Drowsy] 25 mg tablet 25 mg PO TID PRN (Reason: dizziness) Qty: 20 0RF No Action sucralfate [Carafate] 100 mg/mL suspension 10 ml PO QID 90 Days Qty: 3600 1RF dexlansoprazole [Dexilant] 30 mg capsule,biphase delayed releas 30 mg PO .daily 90 Days Qty: 90 1RF acetaminophen [Tylenol Extra Strength] 500 mg tablet 1,000 mg PO QID PRN (Reason: fever or pain) Qty: 14 0RF famotidine [Pepcid] 20 mg tablet 20 mg PO BID 10 Days Qty: 20 0RF clonazepam 0.5 mg tablet 0.5 mg PO DAILY gabapentin 100 mg capsule 100 mg PO TID fluvoxamine 50 mg tablet 50 mg PO BEDTIME albuterol sulfate [Ventolin HFA] 90 mcg/actuation HFA aerosol inhaler 2 puff inhalation Q4H PRN (Reason: wheezing) Interventions: ED Discharge Assessment Last Done: 11/13/24 21:24 Discharge Date/Time: 11/13/24 21:25 Print Language: [place] Citizen
[2024-11-13 20:31] LABS: MANUAL DIFF FLAG NO
[2024-11-13 20:33] LABS: Basophils Absolute Auto 0.1 X10*3/uL (0.0-0.2); Basophils Percent Auto 0.6 % (0-2); Eosinophils Absolute Auto 0.1 X10*3/uL (0.0-0.4); Eosinophils Percent Auto 1.3 % (0-4); Hematocrit 36.1 % (37.0-47.0); Hemoglobin 12.3 g/dl (12.0-16.0); Imm Gran Abs Auto 0.03 X10*3/uL (0.00-0.03); Imm Gran Pct Auto 0.3 % (0.0-0.4); Lymphocytes Absolute Auto 3.2 X10*3/uL (1.2-4.9); Lymphocytes Percent Auto 34.4 % (20-40); Mean Corpuscular HGB Conc 34.1 g/dl (31.0-35.0); Mean Corpuscular Hemoglobin 26.2 pg (27.0-33.0); Mean Platelet Volume 9.6 fL (9.4-12.3); Monocytes Absolute Auto 0.6 X10*3/uL (0.1-1.2); Monocytes Percent Auto 5.9 % (2-11); Neutrophils Absolute Auto 5.3 x10*3/uL (2.0-8.3); Neutrophils Percent Auto 57.5 % (45-73); Platelet Count 243 X10*3/uL (160-400); Red Blood Count 4.69 X10*6/uL (4.20-5.50); Red Cell Distribution Width 13.3 % (11.0-16.0); White Blood Count 9.3 X10*3/uL (4.8-10.8)
[2024-11-13 20:46] LABS: Alanine Aminotransferase 13 U/L (0-31); Albumin Level 4.1 g/dL (3.5-5.0); Alkaline Phosphatase 80 U/L (39-117); Anion Gap 12 (12-20); Aspartate Amino Transferase 17 U/L (5-31); Bilirubin Total 0.3 mg/dL (0.0-1.0); Blood Urea Nitrogen 11 mg/dL (9-16); Calcium 9.2 mg/dL (8.4-10.2); Carbon Dioxide 25 mmol/L (22-29); Chloride 108 mmol/L (96-108); Estimated Glomerular Filt Rate > 60; Glucose Random 91 mg/dL (60-115); Potassium 4.3 mmol/L (3.3-5.1); Sodium 141 mmol/L (135-145); Total Protein 7.7 g/dL (6.5-8.0)
[2024-11-13 21:24] VITALS: BP 117/69; PULSE 69; RESP 16; TEMP 36.6; O2SAT 98
== END 2024-11-13 21:25 | disposition home or self-care (01) ==
PROVIDERS: Emergency Provider Emergency Medicine Emergency Medical Services; PCP Internal Medicine
DX: S06.0X0A Concussion without loss of consciousness, initial encounter (principal); R42 Dizziness and giddiness; R51.9 Headache, unspecified; D32.9 Benign neoplasm of meninges, unspecified; W20.8XXA Other cause of strike by thrown, projected or falling object, initial encounter; Y93.E9 Activity, other interior property and clothing maintenance; Y92.002 Bathroom of unspecified non-institutional (private) residence as the place of occurrence of the external cause; Y99.9 Unspecified external cause status
CPT/HCPCS: 36415; 70450; 72125; 80053; 85025; 99284

== ENCOUNTER → 2024-11-13 17:20 | Outpatient (BNV) | payer MEDICAID, SELFPAY | PROVIDERS: Visit Provider Radiology Diagnostic Radiology | DX: S09.90XA Unspecified injury of head, initial encounter (principal); M54.2 Cervicalgia; R42 Dizziness and giddiness; R51.9 Headache, unspecified | CPT/HCPCS: 70450; 72125 ==

== ENCOUNTER 2024-12-11 15:16 | Outpatient (REF) | payer OTHER, SELFPAY ==
--- NOTE | ~2024-12-11 | XR_ITS ---
EXAMINATION: XR SHOULDER 2 OR MORE VIEWS LEFT HISTORY: Acute left shoulder pain, weakness COMPARISON: There are no prior studies available for comparison. FINDINGS: Five views of the left shoulder are submitted. On one of the images, there is a possible lytic lesion in the mid humeral diaphysis which demonstrates sharp well-circumscribed margins and endosteal scalloping. There is no fracture or dislocation. The lateral humeral and acromioclavicular joint spaces are preserved. The soft tissues are unremarkable. XR/XR shoulder LT min 2V IMPRESSION: Possible lytic lesion in the femoral diaphysis as described which is incompletely evaluated. The appearance raises the possibility of early Paget's disease. Additional imaging with dedicated plain films of the left humerus is recommended. MRI may be useful. Electronically signed by: Salas Meehan MD 12/14/2024 02:45 PM EDT
--- OUTSIDE RECORDS SUMMARY | 2024-12-11 16:37 | XMS_ITS | Encounter Summary ---
Author Organization [employer] Address [address] [place] [address] Care Team Providers Care Geriatric Assistant Name Role Phone Jah Root MD Primary Care Prov ider Reason for Visit * Reason Onset Date Comments Results 09/10/2023 Encounter Details Date Type Department Care Team ([facility] st Contact Info) Description 09/10/2023 Telephone [facility] [address], [place] [phone] Jah Root MD [address] [place], [place] [phone] Results Social History Tobacco Use Types Packs/Day [...] results: Labs Date when done: 08/26/23 Facility: [facility] documented in this encounter Plan of Treatment Upcoming Encounters Date Type Department Care Team ([facility] st Contact Info) Description 02/16/2025 3:30 PM EDT Office Visit [facility] [address], [place] [phone] Jah Root MD [address], [place] [phone] documented as of this encounter Visit Diagnoses Not on filedocumented in this encounter Additional Health Concerns Assessment Noted Time PHQ-9 Depression Total Score: 10 023 2:28 PM EST documented as of this encounter Care Teams Geriatric Assistant Relationship Specialty Start Date End Date Jah Root MD [address] [place] [address] PCP - General Internal Medicine 01/26/20 documented as of this encounter
--- OUTSIDE RECORDS SUMMARY | 2024-12-11 16:37 | XMS_ITS | Encounter Summary ---
Author Organization [employer] Address [address] [place] [address] Care Team Providers Care Professor Of Chemistry Name Role Phone Jah Root MD Primary Care Prov ider Reason for Visit * Reason Onset Date Comments Order 12/10/2024 Referral 12/10/2024 Encounter Details Date Type Department Care Team (Late st Contact Info) Description 12/10/2024 Telephone [facility] [address] [place] [address] Jah Root MD [address] [place], [place] [phone] Order; Referral Social History Tobacco Use Types Packs/Day Years [...] housing situation today? I have irineo shaffer 12/09/[address] you li ve. Do you have problems with any of the following? None of the above 12/09/2024 Food Insecurity Answer Date Recorded Within the past 12 months, y ou worried that your food would run out before you got money to buy more: Never True 12/09/2024 Within the past 12 months,th e food you bought just didn't last and you didn't have enough money to get more: Never True 10/2024 Transportation Answer Date Recorded In the past 12 months, has l ack of transportation kept you from medical appts, meetings, work or from getting things needed for daily living? No 12/09/2024 Utilities Answer Date Recorded In the past 12 months, has t he electric, gas, oil or water company threatened to shut off services in your home? No 12/09/2024 Depression Answer Date Recorded Patient Health Questionnaire-2 Score 2 10/30/2023 Internet Access Answer Date Recorded Internet Access Q1 Yes 12/09/2024 Internet Access Q2 Not on file 12/09/2024 Comments Unknown Sex and Gender Information Value Date Recorded Sex Assigned at Female 07/09/2022 10:14 AM EDT Legal Sex Female 10:14 AM EDT Gender Identity Female 07/09/2022 10:14 AM EDT Sexual Orientation Straight 07/09/2022 10 :14 AM EDT documented as of this encounter Miscellaneous Notes * Telephone Encounter - Malia Rodriguez - 12/10/2024 1:37 PM EDT Tc from pt returning phone call. Pt states called her health insurance company, and they states that she could have the MRI at [facility], but her PCP must submit approval to the health plan, and it could take up to 14 days. Cuban * Telephone Encounter - Jazmin Holcomb RN - 12/10/2024 1:07 PM EDT TC to patient. Left message that according to referral note, patient has to get MRI done at [facility] due to her insurance. Advised patient tot return call to office with any questions. * Telephone Encounter - Nicky Phillips - 12/10/2024 10:25 AM EDT Tc from pt informing referral that was placed for MRI Brain w/ and w/o Contrast pt will like order to be sent to a closer place like [facility] or [facility]. documented in this encounter Plan of Treatment Upcoming Encounters Date Type Department Care Team (Late st Contact Info) Description 02/16/2025 3:30 PM EDT Office Visit [facility] [address] [place] [address] Jah Root MD [address] [place] [address] documented as of this encounter Visit Diagnoses Not on filedocumented in this encounter Additional Health Concerns Assessment Noted Time PHQ-9 Depression Total Score: 8 10/30/19 24 9:42 AM EST documented as of this encounter Care Teams Professor Of Chemistry Relationship Specialty Start Date End Date Jah Root MD [address] [place] [address] PCP - General Internal Medicine 01/26/20 documented as of this encounter
--- OUTSIDE RECORDS SUMMARY | 2024-12-11 16:37 | XMS_ITS | Encounter Summary ---
Author Organization [employer] Address [address] [place] [address] Care Team Providers Care Boring Machine Set Up Operator Name Role Phone Jah Root MD Primary Care Prov ider Reason for Visit * Reason Onset Date Comments Nurse Triage 08/06/2023 Encounter Details Date Type Department Care Team (Late st Contact Info) Description 08/06/2023 Telephone [facility] MED[facility] [address] [place] [address] Jah Root MD [address], [place] [phone] Nurse Triage Social History Tobacco Use Types [...] at lat visit 07/26/23. 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 but dizziness [...] Upcoming Encounters Date Type Department Care Team ([facility] st Contact Info) Description 02/16/2025 3:30 PM EDT Office Visit [facility] [address] [place] [address] Jah Root MD [address] [place] [address] documented as of this encounter Visit Diagnoses Not on filedocumented in this encounter Additional Health Concerns Assessment Noted Time PHQ-9 Depression Total Score: 10 023 2:28 PM EST documented as of this encounter Care Teams Boring Machine Set Up Operator Relationship Specialty Start Date End Date Jah Root MD [address] [place] [address] PCP - General Internal Medicine 01/26/20 documented as of this encounter
--- OUTSIDE RECORDS SUMMARY | 2024-12-11 16:37 | XMS_ITS | Encounter Summary ---
Author Organization [employer] [facility] Address [address] [place] [address] [address] [place] [address] Care Team Providers Care Bone Density Technician Name Role Phone Jah Root MD Primary Care Prov ider Reason for Referral * Imaging (Routine) - Authorized Specialty Diagnoses / Procedures Referred By Contac t Referred To Contact Radiology Diagnoses Meningioma (CMS/HCC) Procedures Mr Brain w/ and w/o Contrast Kalyani Torres FNP [address] [place] [address] Phone: tel: fax: [facility] [address] [place] [address] Phone: tel: Referral ID Status Reason Start Date Expiration Date V isits Requested Visits Authorized [id number] Authorized 12/09/2024 12/09/2025 1 1 * Consultation (Routine) - Canceled Specialty Diagnoses / Procedures Referred By Contchristian t Referred To Contact Orthopaedic Surgery Diagnoses Acute pain of left shoulder Kalyani Torres FNP [address] [place] [address] Phone: tel: fax: Referral ID Status Reason Start Date Expiration Date Visits Requested Visits Authorized [id number] Canceled Specialty Services Required 12/09/2024 12/09/2025 1 1 Encounter Details Date Type Department Care Team (Late st Contact Info) Description 12/09/2024 2:00 PM EDT Office Visit [facility] PEDS [address] [place] [address] [place], [place], [facility] [address] [place] [address] Acute pain of left shoulder (Primary Dx); Meningioma (CMS/HCC) Social History Tobacco Use Types Packs/Day Years [...] Sign Reading Time Taken Comments Blood Pressure 126/78 12/09/2024 2:12 PM EDT Pulse 90 12/09/2024 2:12 PM EDT Temperature 36.8 ??C (98.2 ??F) 12/09/2024 2:12 PM ED T Respiratory Rate 20 12/09/2024 2:12 PM EDT Oxygen Saturation 98% 12/09/2024 2:12 PM EDT Inhaled Oxygen Concentration - - Weight 76.2 kg (168 lb) 12/09/2024 2:12 PM EDT Height 163 cm (5' 4.17 ) 12/09/2024 2:12 PM EDT Body Mass Index 28.68 12/09/2024 2:12 PM EDT documented in this encounter Progress Notes * [facility], BENCH MECHANIC - 12/09/2024 2:00 PM EDT SUBJECTIVE: Radha Rodarte is a 39 y.o. year old female who presents for ED follow-up HPI Seen in [facility] ED 12/04 for closed head injury. Patient was cleaning bathroom shelf and a heavy metal figurine fell off the shelf and struck her on the top of the head. + RIVAS, dizziness. No LOC. Head and C-spine CT negative for acute intracranial pathology but with incidental finding of 10mm angioma (with no mass effect. Today patient denies worsening headache, dizziness, nausea or vomiting. Primary concern is acute left shoulder pain Atraumatic acute left shoulder pain for 2 weeks. Pain worse with overhead lifting. 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 Denies upper extremity numbness tingling or weakness. Patient Active Problem List Diagnosis Alopecia Alopecia areata Migraine Mood disorder (CMS/HCC) Irritable bowel syndrome History of gestational diabetes mellitus COVID Menorrhagia with irregular cycle Neck muscle spasm Iron deficiency anemia, unspecified Acute right-sided low back pain without sciatica Muscle pain Missed period Chronic fatigue Dizziness Swollen tonsil Gastroesophageal reflux disease without esophagitis Abdominal cramping Paresthesia Abnormal CT scan, gastrointestinal tract Abnormal MRI, pelvis Abnormal uterine bleeding Acute viral syndrome EN positive Biliary dyskinesia Breast cyst, left Chronic idiopathic constipation Delayed gastric emptying Dysphagia Early satiety Small bowel motility disorder Exercise intolerance Fibroadenoma Generalized body aches Generalized headaches Hemorrhoids Ileus (CMS/HCC) Iron deficiency Neck pain Odynophagia Palpitations Polyarthralgia Post-cholecystectomy syndrome Postprandial diarrhea Rash Subclinical hypothyroidism Lower abdominal pain RUQ pain Upper abdominal pain Urticaria Uterine leiomyoma Generalized weakness COVID-19 Gastritis Gastroenteritis GERD (gastroesophageal reflux disease) Anemia Microcytic anemia Mass of upper outer quadrant of left breast Review of Systems Constitutional: Negative for fatigue, fever and unexpected weight change. Eyes: Negative for visual disturbance. Respiratory: Negative for apnea, chest tightness and shortness of breath. Cardiovascular: Negative for chest pain, palpitations and leg swelling. Musculoskeletal: Positive for arthralgias. Neurological: Negative for dizziness, light-headedness and headaches. OBJECTIVE: Vitals: 12/09/24 1412 BP: 126/78 Pulse: 90 Resp: 20 Temp: 98.2 ??F (36.8 ??C) SpO2: 98% Physical Exam Constitutional: General: She is not in acute distress. Appearance: Normal appearance. HENT: Head: Normocephalic and atraumatic. Right Ear: External ear normal. Left Ear: External ear normal. Nose: Nose normal. Eyes: Conjunctiva/sclera: Conjunctivae normal. Cardiovascular: Rate and Rhythm: Normal rate and regular rhythm. Heart sounds: Normal heart sounds. Pulmonary: Effort: Pulmonary effort is normal. Breath sounds: Normal breath sounds. Musculoskeletal: Right shoulder: Normal. Left shoulder: Tenderness present. No swelling. Decreased range of motion. Comments: Subacromial Impingement Neers: + Anderson: + Rotator Cuff Empty Can (supraspinatus): Neg Belly Press (subscap): Neg External Rotation Lag (supra/infra): Neg Biceps tendon Speeds: + Sensation intact throughout upper extremity 5/5 strength Skin: General: Skin is warm and dry. Neurological: General: No focal deficit present. Mental Status: She is alert and oriented to person, place, and time. Psychiatric: Mood and Affect: Mood normal. Behavior: Behavior normal. ASSESSMENT/PLAN 1. Acute pain of left shoulder (Primary) - Significant pain with forward flexion. Concern for impingement +/- biceps tendinitis - Will obtain baseline x-ray - Patient declines physical therapy referral, accepts referral to Ortho for possible shoulder injection - XR Shoulder 2+ Views Left; Future - XR Shoulder 2+ Views Left - Referral to Orthopaedic Surgery; Future - Referral to Orthopaedic Surgery 2. Meningioma (CMS/HCC) -Discussed findings with patient we will order brain MRI for further evaluation - Mr Brain w/ and w/o Contrast; Future - Mr Brain w/ and w/o Contrast Follow Up: Per PCP Current Outpatient Medications on File Prior to Visit Medication Sig Dispense Refill albuterol 108 (90 Base) MCG/ACT inhaler Inhale 2 puffs every 4 (four) hours if needed for wheezing.18 g 0 cholecalciferol (Vitamin D-3) 25 MCG (1000 UT) tablet Take 1 tablet by mouth 1 (one) time each day. clonazePAM (KlonoPIN) 0.5 MG tablet Take 1 tablet by mouth in the morning and 1 tablet in the evening. famotidine (Pepcid) 20 MG tablet Take 1 tablet (20 mg) by mouth 2 times daily. 180 tablet 3 ketoconazole (Nizoral) 2 % shampoo Apply topically 2 (two) times a week. 120 mL 3 minoxidil (Loniten) 2.5 MG tablet Take 1 tablet (2.5 mg) by mouth in the morning. 30 tablet 11 pantoprazole (ProtoNix) 40 MG EC tablet Take 1 tablet (40 mg) by mouth before breakfast. Do not crush, chew, or split. 90 tablet 3 No current facility-administered medications on file prior to visit. Ukrainian Translation: Patient is bilingual and declines translation services documented in this encounter Plan of Treatment Upcoming Encounters Date Type Department Care Team ([facility] st Contact Info) Description 02/16/2025 3:30 PM EDT Office Visit [facility] MED & PEDS [address] [place] [address] Jah Root MD [address] [place] [address] Scheduled Orders Name Type Priority Associated Diagnoses Orde r Schedule XR Shoulder 2+ Views Left Imaging Routine Acute pain of left shoulder Expected: 12/09/2024, Expires: 12/09/2025 Mr Brain w/ and w/o Contrast Imaging Routine Meningioma (CMS/HCC) Expected: 12/09/2024, Expires: 12/09/2025 Scheduled Referrals Name Type Priority Associated Diagnoses Order Schedule Referral to Orthopaedic Surgery Outpatient Referral Routine Acute pain of left shoulder Expected: 12/09/2024 (Approximate), Expires: 12/09/2025 documented as of this encounter Visit Diagnoses Diagnosis Acute pain of left shoulder- Primary Meningioma (CMS/HCC) Benign neoplasm of cerebral meninges documented in this encounter Additional Health Concerns Assessment Noted Time PHQ-9 Depression Total Score: 8 10/30/19 24 9:42 AM EST documented as of this encounter Care Teams Bone Density Technician Relationship Specialty Start Date End Date Jah Root MD [address] [place] [id number] PCP - General Internal Medicine 01/26/20 documented as of this encounter
--- OUTSIDE RECORDS SUMMARY | 2024-12-11 16:37 | XMS_ITS | Encounter Summary ---
Author Organization [employer] Address [address] [facility] [address] [place] [address] Care Team Providers Care Derrick Worker Well Service Name Role Phone Jah Root MD Primary Care Prov ider Reason for Visit * Reason Onset Date Comments Nurse Triage 12/08/2024 Encounter Details Date Type Department Care Team (Late st Contact Info) Description 12/08/2024 Telephone [facility] MEDICINE [address] [place] [address] Jah Root MD [address] [place], [place] [phone] Nurse Triage Social History Tobacco Use Types [...] encounter Miscellaneous Notes * Telephone Encounter - Keturah Caldwell LPN - 12/08/2024 8:38 AM EDT Triage call returned to patient who reports injury to head on 11/13/24 seen in ED (note n chart). Continues with some dizziness and was told to follow with PCP as she has a cyst on her scalp. No fever no nausea or vomiting and no blurred vision. Disposition reviewed and patient in agreement withn plan. ASK/F.Irving LEAD JAVA SOFTWARE ENGINEER tomorrow 12/09/24 at 2pm. Protocol Used: Head Injury (Adult) Protocol-Based Disposition: Home Care Override (Final) Disposition: See in Office or Video Visit within 3 Days Override Reason: Already seen and questions Positive Triage Question: * Scalp bruise, pain, or swelling * All higher-acuity triage questions were negative Care Advice Discussed: * Reasons To Call Back - Severe headache lasts over 2 hours after ice pack and pain medicines - Extremity weakness or numbness occurs - Slurred speech or double vision occurs - Vomiting occurs - You become worse * Telephone Encounter - Malia Rodriguez - 12/08/2024 8:18 AM EDT Patient calling to report ED visit on : Date: 11/13 Hospital: [facility] Seen for: figurine fell on head Symptomatic Yes dizzy *if yes message should go to Triage Patient advised will forward to team nurse for follow up [phone] serbian documented in this encounter Plan of Treatment Upcoming Encounters Date Type Department Care Team (Late st Contact Info) Description 02/16/2025 3:30 PM EDT Office Visit [facility] MED & PEDS [address] [place] [address] Jah Root MD [address] [place] [address] documented as of this encounter Visit Diagnoses Not on filedocumented in this encounter Additional Health Concerns Assessment Noted Time PHQ-9 Depression Total Score: 8 10/30/19 24 9:42 AM EST documented as of this encounter Care Teams Derrick Worker Well Service Relationship Specialty Start Date End Date Jah Root MD [address] [place] [address] PCP - General Internal Medicine 01/26/20 documented as of this encounter
--- OUTSIDE RECORDS SUMMARY | 2024-12-11 16:37 | XMS_ITS | Encounter Summary ---
Author Organization [employer] [facility] Address [address] [facility] [address] [place] [address] Care Team Providers Care Travel Administrator Name Role Phone Jah Root MD Primary Care Prov ider Encounter Details Date Type Department Care Team (Late st Contact Info) Description 11/06/2024 Orders Only [facility] [address] [place] [address] Provider, MD Lalit Social History Tobacco Use Types Packs/Day Years [...] Description 02/16/2025 3:30 PM EDT Office Visit [facility] MED & PEDS [address] [place] [address] Jah Root MD [address] [place] [address] documented as of this encounter Procedures Procedure Name Priority Date/Time Associated Diagnosis Comments MRI ABDOMEN WO CONTRAST Routine 09/22/2024 1:22 PM EST documented in this encounter Results * MRI ABDOMEN WO CONTRAST (09/22/2024 1:22 PM EST) Anatomical Region Laterality Modality Magnetic Resonan ce us Historical Provider MD [facility] MRI PROCEDURES Final Result documented in this encounter Visit Diagnoses Not on filedocumented in this encounter Additional Health Concerns Assessment Noted Time PHQ-9 Depression Total Score: 8 10/30/19 24 9:42 AM EST documented as of this encounter Care Teams Travel Administrator Relationship Specialty Start Date End Date Jah Root MD [address] [place] [address] PCP - General Internal Medicine 01/26/20 documented as of this encounter
--- OUTSIDE RECORDS SUMMARY | 2024-12-11 16:37 | XMS_ITS | Encounter Summary ---
Author Organization [employer] Address [address] [facility] [address] [place] [address] Care Team Providers Care Farm Machinery Set Up Mechanic Name Role Phone Jah Root MD Primary Care Prov ider Reason for Visit * Reason Onset Date Comments Results 03/10/2024 Encounter Details Date Type Department Care Team ([facility] st Contact Info) Description 03/10/2024 Telephone [facility] MEDICINE [address] [place] [address] Jah Root MD [address] [place] [address] Results Social History Tobacco Use Types Packs/Day [...] to ordering provider to review and advise [facility] Team Nurses. TC from pt requesting call back regarding Results. Type of results: Labs Date when done: Around 2 weeks ago Facility: [facility] Labs * Telephone Encounter - Miguel Davalos - 03/10/2024 10:15 AM EDT TC from pt requesting call back regarding Results. Type of results: Labs Date when done: Around 2 weeks ago Facility: [facility] Labs documented in this encounter Plan of Treatment Upcoming Encounters Date Type Department Care Team ([facility] st Contact Info) Description 02/16/2025 3:30 PM EDT Office Visit [facility] MED & PEDS [address] [place] [address] Jah Root MD [address] [place] [address] documented as of this encounter Visit Diagnoses Not on filedocumented in this encounter Additional Health Concerns Assessment Noted Time PHQ-9 Depression Total Score: 8 10/30/19 24 9:42 AM EST documented as of this encounter Care Teams Farm Machinery Set Up Mechanic Relationship Specialty Start Date End Date Jah Root MD [address] [place] [id number] PCP - General Internal Medicine 01/26/20 documented as of this encounter
--- OUTSIDE RECORDS SUMMARY | 2024-12-11 16:37 | XMS_ITS | Encounter Summary ---
Author Organization [employer] Address [address] [facility] [address] [place] [address] Care Team Providers Care Employee Benefits Manager Name Role Phone Jah Root MD Primary Care Prov ider Reason for Visit * Reason Onset Date Comments Appointment Request 09/15/2024 Encounter Details Date Type Department Care Team ([facility] st Contact Info) Description 09/15/[address] [facility] MEDICINE [address] [place] [address] Jah Root MD [address] [place], [place] [phone] Appointment Request Social History Tobacco Use Types [...] 02/16/2025 3:30 PM EDT Office Visit [facility] MED & PEDS [address] [place] [address] Jah Root MD [address] [place] [address] documented as of this encounter Visit Diagnoses Not on filedocumented in this encounter Additional Health Concerns Assessment Noted Time PHQ-9 Depression Total Score: 8 10/30/19 24 9:42 AM EST documented as of this encounter Care Teams Employee Benefits Manager Relationship Specialty Start Date End Date Jah Root MD [address] [place] [address] PCP - General Internal Medicine 01/26/20 documented as of this encounter
--- OUTSIDE RECORDS SUMMARY | 2024-12-11 16:37 | XMS_ITS | Encounter Summary ---
Author Organization [employer] [facility] Address [address] [place] [address] Care Team Providers Care Director Of Accounts Payable Name Role Phone Jah Root MD Primary Care Prov ider Encounter Details Date Type Department Care Team (Latest Contact Info) Description 12/09/2024 Travel Social History Tobacco Use Types Packs/Day Years [...] Description 02/16/2025 3:30 PM EDT Office Visit [facility] MED & PEDS [address] [place] [address] Jah Root MD [address] [place] [address] documented as of this encounter Visit Diagnoses Not on filedocumented in this encounter Additional Health Concerns Assessment Noted Time PHQ-9 Depression Total Score: 8 10/30/19 24 9:42 AM EST documented as of this encounter Care Teams Director Of Accounts Payable Relationship Specialty Start Date End Date Jah Root MD [address] [place] [address] PCP - General Internal Medicine 01/26/20 documented as of this encounter
--- OUTSIDE RECORDS SUMMARY | 2024-12-11 16:37 | XMS_ITS | Encounter Summary ---
Author Organization [employer] Address [address] [facility] [address] [place] [address] Care Team Providers Care Newspaper Carrier Name Role Phone Jah Root MD Primary Care Prov ider Reason for Visit * Reason Onset Date Comments FYI 09/30/2024 Encounter Details Date Type Department Care Team ([facility] st Contact Info) Description 09/30/2024 Telephone [facility] [address] [place] [address] Jah Root MD [address] [place], [place] [phone] Social History Tobacco Use Types Packs/Day Years [...] - 09/30/2024 9:48 AM EST TC from [facility] with Anya FIELDS wanting to advise will be sending image report via fax today for provider to report . States finding are Para Spinal Lesions documented in this encounter Plan of Treatment Upcoming Encounters Date Type Department Care Team (Late st Contact Info) Description 02/16/2025 3:30 PM EDT Office Visit [facility] MED & PEDS [address] [place] [address] Jah Root MD [address] [place] [address] documented as of this encounter Visit Diagnoses Not on filedocumented in this encounter Additional Health Concerns Assessment Noted Time PHQ-9 Depression Total Score: 8 10/30/19 24 9:42 AM EST documented as of this encounter Care Teams Newspaper Carrier Relationship Specialty Start Date End Date Jah Root MD [address] [place] [address] PCP - General Internal Medicine 01/26/20 documented as of this encounter
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
--- OUTSIDE RECORDS SUMMARY | 2024-12-11 16:37 | XMS_ITS | Encounter Summary ---
Author Organization [employer] Address [address] [place] [address] Care Team Providers Care Advanced Analytics Associate Name Role Phone Jah Root MD Primary Care Prov ider Encounter Details Date Type Department Care Team (Late st Contact Info) Description 08/28/2024 Orders Only [facility] MED & PEDS [address] [place], [place] [phone] ProviderLalit MD Social History Tobacco Use Types [...] Description 02/16/2025 3:30 PM EDT Office Visit [facility] MED & PEDS [address] [place] [address] Jah Root MD [address] [place] [address] documented as of this encounter Procedures Procedure [...] documented as of this encounter Care Teams Advanced Analytics Associate Relationship Specialty Start Date End Date Jah Root MD [address] [place] [address] PCP - General Internal Medicine 01/26/20 documented as of this encounter
--- OUTSIDE RECORDS SUMMARY | 2024-12-11 16:37 | XMS_ITS | Clinical Summary ---
Author Organization [employer] Address 75 [facility] 7t [place] [address] Care Team Providers Care Tank Car Cleaner Name Role Phone Jah Root MD Primary [...] chew, or split. 90 tablet 3 4 Active famotidine (Pepcid) 20 MG tabletIndication s:Gastroesophage al reflux disease without esophagitis Take 1 tablet (20 mg) by mouth 2 times daily. 180 tablet 3 4 06/11/20 25 Active Active Problems Problem Noted Date Diagnosed Date Abdominal cramping 07/21/2024 Paresthesia 07/21/[address] scan, gastrointestinal tract 024 Abnormal MRI, pelvis 07/21/2024 Abnormal uterine bleeding 07/21/2024 Assessment & Plan (07/21/2024 6:22 PM EST): Followed by ob-clinical registered nurse Acute viral syndrome 07/21/2024 EN positive 07/21/2024 [...] total, feeling much better, follow up with ob-clinical registered nurse History of gestational diabetes mellitus 022 COVID [...] hgb was 11.6, will place referal to ob-clinical registered nurse, Neck muscle spasm 08/17/2022 Assessment & Plan [...] Encounters Date Type Department Care Team Description 12/10/2024 Telephone [facility] [address] [place] [phone] Jah Root MD Order; Referral 12/09/2024 2:00 PM EDT Office Visit [facility] [address] [place] [address] Kalyani Torres FNP Acute pain of left shoulder (Primary Dx); 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/2024 Travel 12/08/2024 Telephone [facility] [address] [place] [phone] Jah Root MD Nurse Triage 11/20/2024 Population Health Risk Score Community [facility] (C3) Department [address] [phone] Provider, Population Health Generic 11/06/2024 Orders Only [facility] [address] [place] [address] ProviderLalit MD 11/03/2024 2:30 PM EST Telemedicine [facility] [address] [place] [address] Jah Root MD Spinal cord cysts (Primary Dx) 11/02/2024 Telephone [facility] [address] [place] [address] Jah Root MD chart prep 10/28/2024 Telephone [facility] [address] [place] [address] Jah Root MD Change PCP 10/03/2024 9:00 AM EST Office Visit [facility] [address] [place] [phone] Alex Pineda MD Benign paroxysmal positional vertigo due to bilateral vestibular disorder (Primary Dx); Numbness and tingling 10/02/[address] [address] Jah Root MD Nurse Triage 09/30/[address] [address] Jah Root MD FYI 09/30/[address] [address] Jah Root MD FYI 09/15/2024 Telephone [facility] PEDS [address] [place] [address] Bhupinder Cifuentes MD No Show 09/15/[address] [address] Jah Root MD Appointment Request from Last 3 Months Immunizations Name Administration Dates Next Due DTP 07/10/1990, 6,04/09/1985,1984 HPV, Quadrivalent 06/29/2011,11/28/2007 Hep B, Adolescent or Pediatric 03/29/1997,1995,04/06/1996 Influenza injectable quadriv alent IIV4 with preservative 06/20/2016,05/30/2015 Influenza, Split (incl. huang fied surface antigen) 07/28/2012 MMR 07/10/1990,04/09/1986 OPV, Trivalent 08/09/1992, 6,04/09/1985,1984 Td (adult), 5 Lf tetanus [...] Mass Index 28.68 12/09/2024 2:12 PM EDT Plan of Treatment Upcoming Encounters Date Type Department Care Team ([facility] st Contact Info) Description 02/16/2025 3:30 PM EDT Office Visit [facility] [address] [place] [address] Jah Root MD [address] [place] [address] Health Maintenance Due Date Last Done Comments Derm Melanoma Skin Check 06/06/1985 Family Planning (PISQ) 12/05/1999 Hepatitis A Vaccines (1 of 2 - Risk 2-dose series) 12/05/2003 HPV Vaccines (3 - 3-dose series) 09/21/2011 06/29/2011, 11/28/2007 COVID-19 Vaccine ( season) 2024 10/06/2021, 01/18/2021, 12/21/2020 Influenza Vaccine (#1) 2024 6, 05/30/2015, 07/28/2012 Depression Screening 10/30/2024 10/30/2023, 10/30/19 24 Cervical Cancer Screening 04/19/2025 HPV/Cotest 04/19/2025 04/14/2020, 12/15/2018 Pap Smear 04/19/2025 04/14/2020, 12/15/2018 Alcohol/Substance Use Screening 12/09/2025 12/09/2024 SDOH Screening 12/09/2025 12/09/2024 Tobacco Screening 12/11/2025 12/11/2024 Mammogram 08/25/2026 08/25/2024, 12/0 01/2024, 08/13/2024 DTaP/Tdap/Td Vaccines (7 - Td or Tdap) 07/21/2034 07/21/2024, 06/29/2011, 03/29/1997, Additional history exists Zoster Vaccines (1 of 2) 2034 RSV Patients and Patients Aged 60 years or older (1 - 1-dose 75+ series) 12/05/2059 IPV Vaccines Completed 08/09/1992, 12/0 09/1985, 04/09/1985, Additional history exists Hepatitis B [...] 5 Years) and At-Risk Patients (6 to 49) Years) Aged Out No longer eligible based [...] to bilateral vestibular disorder Numbness and tingling MRI ABDOMEN WO CONTRAST Routine 09/22/2024 1:22 PM EST BI US BREAST LIMITED LEFT Routine 08/13/2024 1:15 PM EST ZZZ HISTORICAL HEPATITIS C AB W/REFL TO HCV RNA, QN, PCR Routine 07/06/2021 3:02 PM EDT HIV 1/2 ANTIGEN/ANTIBODY, FOURTH GENERATION W/RFL Routine 07/06/2021 3:02 PM EDT HM PAP/HPV Routine 04/14/2020 12:00 AM EDT from Last 3 Months or Most Recently Relevant to Health Maintenance Results * Vitamin B12/Folate, Serum Panel (10/05/2024 10:38 AM EST) Vitamin B12 245 200 - 900 pg/mL [facility] Comment:NORMAL 200-900 PG/ML INDETERMINATE 160-199 PG/ML DEFICIENT < 160 PG/ML Folate 5.2 > or = 4.0 ng/mL [facility] Comment:Reference Values:> o r = [...] ORDERABLES Final Resul t Performing Organization Address [facility] Co de Phone Number [facility] [address] [place] [phone] * TSH W/Reflex to FT4 (10/05/2024 10:38 AM EST) Pathologist [facility] TSH reflex Free T4 2.22 0.32 - 4.0 uIU/mL [facility] Blood Venous blood specimen / Unknown 10/05/2024 10:38 AM EST 10/05/2024 2:21 PM EST us Alex Pineda MD LAB BLOOD ORDERABLES Final Resul t Performing Organization Address City/[facility]/ZIP Co de Phone Number [facility] [address] [place] [phone] * (ABNORMAL) CBC auto differential (10/05/2024 10:38 AM EST) Pathologist [facility] White Blood Count 8.8 4.8 - 10.8 X10*3/uL [facility] Red Blood Count 5.06 4.20 - 5.50 X10*6/uL [facility] Hemoglobin 13.1 12.0 - 16.0 g/dl [facility] Hematocrit 39.6 37.0 - 47.0 % [facility] Mean Corpuscular Volume 78.3(L) 80.0 - 98.0 fL [facility] Mean Corpuscular Hemoglobin 25.9(L) 27.0 - 33.0 pg [facility] Mean Corpuscular HGB Conc 33.1 31.0 - 35.0 g/dl [facility] Red Cell Distribution Width 13.4 11.0 - 16.0 % [facility] Platelet Count 272 160 - 400 X10*3/uL [facility] Mean Platelet Volume 10.6 9.4 - 12.3 fL [facility] Neutrophils Percent Auto 67.5 45 - 73 % [facility] Imm Gran Pct Auto 0.3 0.0 - 0.4 % [facility] Lymphocytes Percent Auto 25.9 20 - 40 % [facility] Monocytes Percent Auto 5.0 2 - 11 % [facility] Eosinophils Percent Auto 0.6 0 - 4 % [facility] Basophils Percent Auto 0.7 0 - 2 % [facility] NRBC Pct Auto 0.0 0.0 - 0.2 /100WBC [facility] Neutrophils Absolute Auto 5.9 2.0 - 8.3 x10*3/uL [facility] Imm Gran Abs Auto 0.03 0.00 - 0.03 X10*3/uL [facility] Lymphocytes Absolute Auto 2.3 1.2 - 4.9 X10*3/uL [facility] Monocytes Absolute Auto 0.4 0.1 - 1.2 X10*3/uL [facility] Eosinophils Absolute Auto 0.1 0.0 - 0.4 X10*3/uL [facility] Basophils Absolute Auto 0.1 0.0 - 0.2 X10*3/uL [facility] NRBC Abs Auto 0.000 0.0 - 0.012 X10*3/uL [facility] Blood Venous blood specimen / Unknown 10/05/2024 10:38 AM EST 10/05/2024 2:21 PM EST us Alex Pineda MD LAB BLOOD ORDERABLES Final Resul t [facility] [address] [place] [address] [phone] * MRI ABDOMEN WO CONTRAST (09/22/2024 1:22 PM EST) Anatomical Region Laterality Modality Magnetic Resonan ce us Historical Provider IMG MRI PROCEDURES Final Result * BI US Breast Limited Left (08/13/2024 1:15 PM EST) Anatomical Region Laterality Modality Breast Left Ultrasound 08/13/2024 1:15 PM EST Narrative 08/13/2024 2:50 PM EST ? [facility] [place] [facility] ? [address] ?[place] [address] ? Ultrasound Report ? Signed ? Patient: Rodarte,Iris D ?MR#: [id number] ?? 62 ? : 1985 ?Acct:[id number] ? Age/Sex: 38 / F ?ADM Date: 08/13/24 ? Loc: HO.MAMMO ? Attending Dr: Jah Dejesus MD ? Ordering Physician: Jah Root MD ?? Date of Service: 08/13/24 ?? Procedure(s): US breast LT limited mamm only ?? Accession Number(s): [id number] ? cc: Jah Root MD ? EXAMINATION: [...] DD/ 1315 ? TD/TT: 08/13/24 1430 ? Market Superintendent: ? Procedure Note Eder Banda - 08/13/2024 [facility] [address] [place] [address] Ultrasound Report Signed Patient: Radha Rodarte DMR#: [id number] 62 : 1985Acct:[id number] Age/Sex: 38 / FADM Date: 08/13/24 Loc: HO.MAMMO Attending Dr: Jah Dejesus MD Ordering Physician: Jah Root MD Date of Service: 08/13/24 Procedure(s): US breast LT limited mamm only Accession Number(s): [id number] cc: Jah Root MD EXAMINATION: MM DIAGNOSTIC [...] by: Amanda Santana DO 08/13/2024 02:47 PM EST Dictated By: Amanda Santana DO Signed By: <Electronically signed by Amanda Santana DO in OV> 08/13/24 1447 DD/ 1315 TD/TT: 08/13/24 1430 Market Superintendent: Jah Dejesus MD [facility] US PROCEDURES Edited Result - Final * HEPATITIS C AB W/REFL TO HCV RNA, QN, PCR (07/06/2021 3:02 PM EDT) HEPATITIS C ANTIBODY NON-REACT IGNACIO NON-REACT IGNACIO [facility] INDEX 0.02 <1.00 [facility] Comment: ?? HCV antibody was non-reactive. There is no laboratory ?? evidence of HCV infection. ?? In most cases, no further action is required. However, if recent HCV exposure is suspected, a test for HCV RNA (test code 13526) is suggested. ?? For additional information please refer to http://education.YouAppi/faq/DWT69j5 (This link is being provided for informational/ educational purposes only.) ?? 07/06/2021 3:02 PM EDT Jah Dejesus MD HISTORICAL/NON ORD ERABLE LABS Final Result Performing Organization Address [facility] Phone Number [facility] [address] [place] [address], * HIV 1/2 ANTIGEN/ANTIBODY,FOURTH GENERATION W/RFL (07/06/2021 3:02 PM EDT) HIV-1/2 ANTIGEN AND ANTIBODIES, 4TH GENERATION W/ REFLEX NON-REACT IGNACIO NON-REACT IGNACIO [facility] Comment: HIV-1 antigen and HIV-1/HIV-2 [...] ? For additional information please refer to http://[employer]YouAppi/faq/SRR966 (This link is being provided for informational/ educational purposes only.) ? The performance of this assay has not been clinically validated in patients less than 2 years old. ?? 07/06/2021 3:02 PM EDT Jah Dejesus MD LAB BLOOD ORDERABL ES Final Result Performing Organization Address [facility] Phone Number [facility] [address] [place] [address], [place] * HM PAP/HPV (04/14/2020 12:00 AM EDT) Pap Smear 1. NILM 1. NILM HPV Undetected Undetected, Indeterminate , Quantitative, Not Detected us Historical Provider HEALTH MAINTENANCE Edited Result - Final from Last 3 Months or Most Recently Relevant to Health Maintenance Insurance [employer] Care Teams Tank Car Cleaner Relationship Specialty Start Date End Date Jah Root MD [address] [place] [phone] PCP - General Internal Medicine 01/26/20
--- OUTSIDE RECORDS SUMMARY | 2024-12-11 16:37 | XMS_ITS | Encounter Summary ---
Author Organization [employer] Address 75 [facility] 7t [place] [address] Care Team Providers Care Electrical Installer Name Role Phone Jah Root MD Primary Care Prov ider Reason for Visit * Reason Onset Date Comments Change PCP 10/28/2024 Encounter Details Date Type Department Care Team ([facility] st Contact Info) Description 10/28/2024 Telephone [facility] MED [facility] PED[facility] [address] [place], [place] [phone] Jah Root MD [address] [place] [address] Change PCP Social History Tobacco Use Types Packs/Day Years [...] Telephone Encounter - Monica Bell RN - 11/02/2024 2:12 PM EST Placed call to pt regarding TP request. Pt states she is looking for a provider who is available inperson the majority of the time. Pt also stated findings of a cyst on her spine and results were sent to PCP from [facility] to review next steps and has not heard anything. Pt states feels like she needs aprovider who will be more responsive and available. Pt prefers to stay at the [facility] location. Pt infor med of limited availability of providers here accepting TP and pt may have to wait until available provider returns to process request. Pt informed that in the interim PCP will remain the same and ifpt has any acute issues pt can be seen by any available provider. Pt verbalized understanding and agrees with plan and will keep scheduled tele tomorrow to discuss results and POC. * Telephone Encounter - Lori Curiel - 10/28/2024 9:48 AM EST TC from pt requesting to switch PCP due to not being satisfied with care and medical needs not being reached. documented in this encounter Plan of Treatment Upcoming Encounters Date Type Department Care Team (Late st Contact Info) Description 02/16/2025 3:30 PM EDT Office Visit [facility] PED[facility] [address] [place] [address] Jah Root MD [address] [place] [address] documented as of this encounter Visit Diagnoses Not on filedocumented in this encounter Additional Health Concerns Assessment Noted Time PHQ-9 Depression Total Score: 8 10/30/19 24 9:42 AM EST documented as of this encounter Care Teams Electrical Installer Relationship Specialty Start Date End Date Jah Root MD [address] [place] [address] PCP - General Internal Medicine 01/26/20 documented as of this encounter
== END 2024-12-11 15:17 | disposition home or self-care (01) ==
LOC: HO.XRAY 15:16
PROVIDERS: PCP Internal Medicine; Visit Provider Registered Nurse
DX: M25.512 Pain in left shoulder (principal)
CPT/HCPCS: 73030

== ENCOUNTER → 2024-12-11 15:22 | Outpatient (BNV) | payer OTHER, SELFPAY | PROVIDERS: PCP Internal Medicine; Visit Provider Radiology Diagnostic Radiology | DX: M25.512 Pain in left shoulder (principal); R53.1 Weakness | CPT/HCPCS: 73030 ==

== ENCOUNTER → 2024-12-29 15:55 | Outpatient (BNV) | payer OTHER, SELFPAY | PROVIDERS: PCP Internal Medicine; Visit Provider Radiology Diagnostic Radiology | DX: D32.0 Benign neoplasm of cerebral meninges (principal) | CPT/HCPCS: 70553; 73221 ==

== ENCOUNTER 2024-12-29 15:59 | Outpatient (REF) | payer OTHER, SELFPAY ==
--- NOTE | ~2024-12-29 | MR_ITS ---
EXAMINATION: MR BRAIN WITHOUT AND WITH CONTRAST CLINICAL INFORMATION: Meningioma. Larger on recent CT scanning. COMPARISON: November 12, 2008. Correlated to CT dated November 13, 2024. TECHNIQUE: Multiplanar, multisequence MRI of the brain was obtained before and after the intravenous administration of 7 mL gadolinium based without reported immediate complications. FINDINGS: There is a well-defined, 10 x 9 x 15 mm, extra-axial, isointense T1 intermediate T2 FLAIR nonprotected restricted diffusion and homogeneously enhancing lesion/mass centered in the left midline anterior interhemispheric falx without perilesional vasogenic edema or gross mass effect. This lesion is adjacent to the anterior left superior frontal gyrus. No acute intracranial hemorrhage, mass effect, midline shift, hydrocephalus or herniation. Cid-white matter differentiation is normal. Posterior cranial fossa contents demonstrated no acute intracranial hemorrhage or mass effect. Sellar/suprasellar region is normal. Craniocervical junction is intact and normal. Flow-void signal within the main cerebral vessels is normal. Main cerebral venous sinuses are patent without intraluminal filling defects. MR/MR head/brain wo/w con IMPRESSION: 10 x 9 x 15 mm meningioma, left parafalcine. Electronically signed by: Jose Sherwood MD 12/30/2024 10:46 AM EDT
[2024-12-29] MEDS: gadobutroL 7.5 ML VIAL 7 ML IVPUSH (17:01)
--- OUTSIDE RECORDS SUMMARY | 2024-12-29 18:40 | XMS_ITS | Encounter Summary ---
Author Organization [employer] Address 75 [facility] 7t [place] [address] Care Team Providers Care Banking Management Consulting Manager Name Role Phone Jah Root MD Primary Care Prov ider Reason for Visit * Reason Onset Date Comments Results 09/10/2023 Encounter Details Date Type Department Care Team ([facility] st Contact Info) Description 09/10/2023 Telephone [facility] MED & PEDS [address] [place], [place] [phone] Jah Root MD [address] [place], [place] [phone] Results Social History Tobacco Use Types Packs/Day [...] results: Labs Date when done: 08/26/23 Facility: [facility] documented in this encounter Plan of Treatment Upcoming Encounters Date Type Department Care Team ([facility] st Contact Info) Description 02/16/2025 3:30 PM EDT Office Visit [facility] MED & PEDS [address] [place], [place] [phone] Jah Root MD [address] [place], [place] [phone] documented as of this encounter Visit Diagnoses Not on filedocumented in this encounter Additional Health Concerns Assessment Noted Time PHQ-9 Depression Total Score: 10 023 2:28 PM EST documented as of this encounter Care Teams Banking Management Consulting Manager Relationship Specialty Start Date End Date Jah Root MD [address] [place] [address] PCP - General Internal Medicine 01/26/20 documented as of this encounter
--- OUTSIDE RECORDS SUMMARY | 2024-12-29 18:40 | XMS_ITS | Encounter Summary ---
Author Organization [employer] Address 75 [facility] 7t [place] [address] Care Team Providers Care Hot Blaster Name Role Phone Jah Root MD Primary Care Prov ider Reason for Visit * Reason Onset Date Comments Change PCP 10/28/2024 Encounter Details Date Type Department Care Team ([facility] st Contact Info) Description 10/28/2024 Telephone [facility] MED & PEDS [address] [place], [place] [phone] Jah Root MD [address] [place] [address] Change PCP Social History Tobacco Use Types [...] and results were sent to PCP from [facility] to review next steps and [...] Description 02/16/2025 3:30 PM EDT Office Visit [facility] PED[facility] [address] [place] [address] Jah Root MD [address] [place] [address] documented as of this encounter Visit Diagnoses Not on filedocumented in this encounter Additional Health Concerns Assessment Noted Time PHQ-9 Depression Total Score: 8 10/30/19 24 9:42 AM EST documented as of this encounter Care Teams Hot Blaster Relationship Specialty Start Date End Date Jah Root MD [address] [place] [address] PCP - General Internal Medicine 01/26/20 documented as of this encounter
--- OUTSIDE RECORDS SUMMARY | 2024-12-29 18:40 | XMS_ITS | Encounter Summary ---
Author Organization [employer] [facility] Address 75 [facility] 7t [place] [address] Care Team Providers Care Chief Contract Officer Name Role Phone Jah Root MD Primary Care Prov ider Encounter Details Date Type Department Care Team (Late st Contact Info) Description 11/06/2024 Orders Only [facility] [address] [place] [address] Provider, MD Lalit Social History Tobacco Use [...] Description 02/16/2025 3:30 PM EDT Office Visit [facility] MED & PEDS [address] [place] [address] Jah Root MD [address] [place] [address] documented as of this encounter Procedures Procedure [...] documented as of this encounter Care Teams Chief Contract Officer Relationship Specialty Start Date End Date Jah Root MD [address] [place] [address] PCP - General Internal Medicine 01/26/20 documented as of this encounter
--- OUTSIDE RECORDS SUMMARY | 2024-12-29 18:40 | XMS_ITS | Encounter Summary ---
Author Organization [employer] Address 75 [facility] 7t [place] [address] Care Team Providers Care Marketing Operations Assistant Name Role Phone Jah Root MD Primary Care Prov ider Reason for Visit * Reason Onset Date Comments Results 03/10/2024 Encounter Details Date Type Department Care Team ([facility] st Contact Info) Description 03/10/2024 Telephone [facility] [address] [place] [address] Jah Root MD [address] [place] [address] Results Social History Tobacco Use Types Packs/Day [...] to ordering provider to review and advise [facility] Team Nurses. TC from pt requesting call back regarding Results. Type of results: Labs Date when done: Around 2 weeks ago Facility: [facility] Labs * Telephone Encounter - Miguel Davalos - 03/10/2024 10:15 AM EDT TC from pt requesting call back regarding Results. Type of results: Labs Date when done: Around 2 weeks ago Facility: [facility] Labs documented in this encounter Plan of Treatment Upcoming Encounters Date Type Department Care Team ([facility] st Contact Info) Description 02/16/2025 3:30 PM EDT Office Visit [facility] MED & PEDS [address] [place] [address] Jah Root MD [address] [place] [address] documented as of this encounter Visit Diagnoses Not on filedocumented in this encounter Additional Health Concerns Assessment Noted Time PHQ-9 Depression Total Score: 8 10/30/19 24 9:42 AM EST documented as of this encounter Care Teams Marketing Operations Assistant Relationship Specialty Start Date End Date Jah Root MD [address] [place] [phone] PCP - General Internal Medicine 01/26/20 documented as of this encounter
--- OUTSIDE RECORDS SUMMARY | 2024-12-29 18:40 | XMS_ITS | Encounter Summary ---
Author Organization [employer] Address [address] [facility] [address] [place] [address] Care Team Providers Care Flat Knitter Helper Name Role Phone Jah Root MD Primary Care Prov ider Encounter Details Date Type Department Care Team (Late st Contact Info) Description 08/28/2024 Orders Only [facility]EDS [address] [place], [place] [phone] ProviderLalit MD Social History Tobacco Use Types [...] 3:30 PM EDT Office Visit [facility] MED [facility] PEDS [address] [place] [address] Jah Root MD [address] [place] [address] documented as of this encounter Procedures Procedure [...] documented as of this encounter Care Teams Flat Knitter Helper Relationship Specialty Start Date End Date Jah Root MD [address] [place] [address] PCP - General Internal Medicine 01/26/20 documented as of this encounter
--- OUTSIDE RECORDS SUMMARY | 2024-12-29 18:40 | XMS_ITS | Encounter Summary ---
Author Organization [employer] Address [address] [facility] 7t [place] [address] Care Team Providers Care Coordinator Mining Products Name Role Phone Jah Root MD Primary Care Prov ider Reason for Visit * Reason Onset Date Comments Appointment Request 09/15/2024 Encounter Details Date Type Department Care Team ([facility] st Contact Info) Description 09/15/2024 Telephone [facility] MEDICINE [address] [place] [address] Jah Root MD [address] [place], [place] [phone] Appointment Request Social History Tobacco Use Types [...] 3:30 PM EDT Office Visit [facility]S [address] [place] [address] Jah Root MD [address] [place] [address] documented as of this encounter Visit Diagnoses Not on filedocumented in this encounter Additional Health Concerns Assessment Noted Time PHQ-9 Depression Total Score: 8 10/30/19 24 9:42 AM EST documented as of this encounter Care Teams Coordinator Mining Products Relationship Specialty Start Date End Date Jah Root MD [address] [place] [address] PCP - General Internal Medicine 01/26/20 documented as of this encounter
--- OUTSIDE RECORDS SUMMARY | 2024-12-29 18:40 | XMS_ITS | Clinical Summary ---
Author Organization [employer] Address [address] [facility] 7[address] [place] [address] Care Team Providers Care Cushion Assembler Name Role Phone Jah Root MD Primary [...] Plan (07/21/2024 6:22 PM EST): Followed by ob-information management specialist Acute viral syndrome 07/21/2024 EN positive 07/21/2024 [...] total, feeling much better, follow up with ob-information management specialist History of gestational diabetes mellitus 022 COVID [...] hgb was 11.6, will place referal to ob-information management specialist, Neck muscle spasm 08/17/2022 Assessment & Plan [...] Encounters Date Type Department Care Team Description 12/16/2024 Orders Only [facility] [address] [place] [phone] Kalyani Torres FNP Lytic lesion of bone on x-ray (Primary Dx) 12/15/2024 Telephone [facility] [address] [place] [address] Jah Root MD Results 12/15/2024 Telephone [facility] [address] [place] [address] Kalyani Torres FNP 12/15/2024 Telephone [facility] [address] [place] [phone] Jah Root MD Error (VOID this visit) 12/14/2024 Orders Only [facility] [address] [place] [address] Kalyani Torres FNP Lytic lesion of bone on x-ray (Primary Dx) 12/10/[address] [address] Jah Root MD Order; Referral 12/09/2024 2:00 PM EDT Office Visit [facility] [address] [place] [address] Kalyani Torres FNP Acute pain of left shoulder (Primary Dx); 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/2024 Travel 12/08/2024 Telephone [facility] [address] [place] [address] Jah Root MD Nurse Triage 11/20/2024 Population Health Risk Score [facility] ([facility]) Department [address] [place] [phone] Provider, Population Health Generic 11/06/2024 Orders Only [facility] [address] [place] [address] Provider, MD Lalit 11/03/2024 2:30 PM EST Telemedicine [facility] [address] [place], [place] [phone] Jah Root MD Spinal cord cysts (Primary Dx) 11/02/2024 Telephone [facility] [address] [place], [place] [phone] Jah Root MD chart prep 10/28/2024 Telephone [facility] [address] [place], [place] [phone] Jah Root MD Change PCP 10/03/2024 9:00 AM EST Office Visit [facility] [address] [place] [address] Alex Pineda MD Benign paroxysmal positional vertigo due to bilateral vestibular disorder (Primary Dx); Numbness and tingling 10/02/2024 Telephone [facility] [address] [place] [address] Jah Root MD Nurse Triage 09/30/2024 Telephone [facility] [address] [place] [address] Jah Root MD FYI 09/30/[address] [address] Jah Root MD FYI from Last 3 Months Immunizations Name Administration [...] Description 02/16/2025 3:30 PM EDT Office Visit [facility] [address] [place] [address] Jah Root MD [address] [place] [address] Health Maintenance Due Date Last Done Comments [...] Tobacco Screening 12/11/2025 12/11/2024 Mammogram 08/25/2026 08/25/2024, 01/2024, 08/13/2024 DTaP/Tdap/Td Vaccines (7 - Td [...] Procedure Name Priority Date/Time Associated Diagnosis Comments XR SHOULDER 2+ VIEWS LEFT Routine 12/11/2024 3:25 PM EDT Acute pain of left shoulder VITAMIN B12/FOLATE, SERUM PANEL Routine 10/05/2024 10:38 [...] to bilateral vestibular disorder Numbness and tingling BI US BREAST LIMITED LEFT Routine 08/13/2024 1:15 PM EST [facility] HISTORICAL HEPATITIS C AB W/REFL TO HCV RNA, QN, PCR Routine 07/06/2021 3:02 PM EDT HIV 1/2 ANTIGEN/ANTIBODY, FOURTH GENERATION W/RFL Routine 07/06/2021 3:02 PM EDT HM PAP/HPV Routine 04/14/2020 12:00 AM EDT from Last 3 Months or Most Recently Relevant to Health Maintenance Results * XR Shoulder 2+ Views Left (12/11/2024 3:25 PM EDT) Anatomical Region Laterality Modality Upper Extremities, Shoulder Left Radi ographic Imaging 12/11/2024 3:25 PM EDT Narrative 12/14/2024 2:47 PM EDT ? [facility] ?[address] ?[place] [address] ?XRay Report ? Signed ? Patient: Radha Rodarte D ?MR#: [id number] ?? 62 ? : 1985 ?Acct:[id number] ? Age/Sex: 39 / F ?ADM Date: 12/11/24 ? Loc: HO.XRAY ? Attending Dr: Kalyani Torres DEVELOPMENTAL MATHEMATICS INSTRUCTOR ? Ordering Physician: Kalyani Torres DEVELOPMENTAL MATHEMATICS INSTRUCTOR ?? Date of Service: 12/11/24 ?? Procedure(s): XR shoulder LT min 2V ?? Accession Number(s): [id number] ? cc: Jah Root MD; Kalyani Torres DEVELOPMENTAL MATHEMATICS INSTRUCTOR ? EXAMINATION: ??XR SHOULDER 2 OR MORE VIEWS LEFT ? HISTORY: Acute left shoulder pain, weakness ? COMPARISON: There are no prior studies available for comparison. ? FINDINGS: ? Five views of the left shoulder are submitted. ??On one of the images, ?? there is a possible lytic lesion in the mid humeral diaphysis which ?? demonstrates sharp well-circumscribed margins and endosteal scalloping. ?? There is no fracture or dislocation. ??The lateral humeral and ?? acromioclavicular joint spaces are preserved. ??The soft tissues are ?? unremarkable. ? XR/XR shoulder LT min 2V ?? IMPRESSION: ? Possible lytic lesion in the femoral diaphysis as described which is ?? incompletely evaluated. The appearance raises the possibility of early ?? Paget's disease. Additional imaging with dedicated plain films of the ?? left humerus is recommended. MRI may be useful. ? Electronically signed by: ??Salas Meehan MD ??12/14/2024 02:45 PM EDT ? Dictated By: ?Slaas Meehan MD ? Signed By: ?<Electronically signed by Salas Meehan MD in OV> ?12/14/24 1445 ? DD/ 1525 ? TD/TT: 12/11/24 1540 ? Industrial Ecology Technician: ? Procedure Note Eder Banda - 12/14/2024 [place] [address] XRay Report Signed Patient: Radha Rodarte DMR#: [id number] 62 : 1985Acct:[id number] Age/Sex: 39 / FADM Date: 12/11/24 Loc: [facility] Attending Dr: Kalyani LEON Ordering Physician: Kalyani Torres Date of Service: 12/11/24 Procedure(s): XR shoulder LT min 2V Accession Number(s): [id number] cc: Jah Root MD; Kalyani Torres EXAMINATION: XR SHOULDER 2 OR MORE VIEWS LEFT HISTORY: Acute left shoulder pain, weakness COMPARISON: There are no prior studies available for comparison. FINDINGS: Five views of the left shoulder are submitted. On one of the images, there is a possible lytic lesion in the mid humeral diaphysis which demonstrates sharp well-circumscribed margins and endosteal scalloping. There is no fracture or dislocation. The lateral humeral and acromioclavicular joint spaces are preserved. The soft tissues are unremarkable. XR/XR shoulder LT min 2V IMPRESSION: Possible lytic lesion in the femoral diaphysis as described which is incompletely evaluated. The appearance raises the possibility of early Paget's disease. Additional imaging with dedicated plain films of the left humerus is recommended. MRI may be useful. Electronically signed by: Salas Meehan MD 12/14/2024 02:45 PM EDT Dictated By: Salas Meehan MD Signed By: <Electronically signed by Salas Meehan MD in OV> 12/14/24 1445 DD/ 1525 TD/TT: 12/11/24 1540 Industrial Ecology Technician: [facility] DEVELOPMENTAL MATHEMATICS INSTRUCTOR IMG XR PROCEDURES Final Resul t * Vitamin B12/Folate, Serum Panel (10/05/2024 10:38 AM EST) Vitamin B12 245 200 - 900 pg/mL [facility] Comment:NORMAL 200-900 PG/ML INDETERMINATE 160-199 PG/ML DEFICIENT < 160 PG/ML Folate 5.2 > or = 4.0 ng/mL [facility] Comment:Reference Values:> o r = [...] ORDERABLES Final Resul t Performing Organization Address City/[facility]/ZIP Co de Phone Number [facility] [address] [place] [phone] * TSH W/Reflex to FT4 (10/05/2024 10:38 AM EST) TSH reflex Free T4 2.22 0.32 - 4.0 uIU/mL [facility] Blood Venous blood specimen / Unknown 10/05/2024 10:38 AM EST 10/05/2024 2:21 PM EST Alex Pineda MD LAB BLOOD ORDERABLES Final Resul t [facility] [address] [place], [place] [phone] * (ABNORMAL) CBC auto differential (10/05/2024 10:38 AM EST) White Blood Count 8.8 4.8 - 10.8 X10*3/uL [facility] Red Blood Count 5.06 4.20 - 5.50 X10*6/uL [facility] Hemoglobin 13.1 12.0 - 16.0 g/dl [facility] Hematocrit 39.6 37.0 - 47.0 % [facility] Mean Corpuscular Volume 78.3(L) 80.0 - 98.0 fL [facility] Mean Corpuscular Hemoglobin 25.9(L) 27.0 - 33.0 pg [facility] Mean Corpuscular HGB Conc 33.1 31.0 - 35.0 g/dl [facility] Red Cell Distribution Width 13.4 11.0 - 16.0 % [facility] Platelet Count 272 160 - 400 X10*3/uL [facility] Mean Platelet Volume 10.6 9.4 - 12.3 fL [facility] Neutrophils Percent Auto 67.5 45 - 73 % [facility] Imm Gran Pct Auto 0.3 0.0 - 0.4 % [facility] Lymphocytes Percent Auto 25.9 20 - 40 % [facility] Monocytes Percent Auto 5.0 2 - 11 % [facility] Eosinophils Percent Auto 0.6 0 - 4 % [facility] Basophils Percent Auto 0.7 0 - 2 % [facility] NRBC Pct Auto 0.0 0.0 - 0.2 /100WBC [facility] Neutrophils Absolute Auto 5.9 2.0 - 8.3 x10*3/uL [facility] Imm Gran Abs Auto 0.03 0.00 - 0.03 X10*3/uL [facility] Lymphocytes Absolute Auto 2.3 1.2 - 4.9 X10*3/uL [facility] Monocytes Absolute Auto 0.4 0.1 - 1.2 X10*3/uL [facility] Eosinophils Absolute Auto 0.1 0.0 - 0.4 X10*3/uL [facility] Basophils Absolute Auto 0.1 0.0 - 0.2 X10*3/uL [facility] NRBC Abs Auto 0.000 0.0 - 0.012 X10*3/uL [facility] Blood Venous blood specimen / Unknown 10/05/2024 10:38 AM EST 10/05/2024 2:21 PM EST us Alex Pineda MD LAB BLOOD ORDERABLES Final Resul t [facility] [address] [place] [address] [phone] * BI US Breast Limited Left (08/13/2024 1:15 PM EST) Anatomical Region Laterality Modality Breast Left Ultrasound 08/13/2024 1:15 PM EST Narrative 08/13/2024 2:50 PM EST ? [facility] [place] ? [address] ?[place] [address] ? Ultrasound Report ? Signed ? Patient: Radha Rodarte ?MR#: [id number] ?? 62 ? : 1985 ?Acct:[id number] ? Age/Sex: 38 / F ?ADM Date: 08/13/24 ? Loc: HO.MAMMO ? Attending Dr: Jah Dejesus MD ? Ordering Physician: Jah Root MD ?? Date of Service: 08/13/24 ?? Procedure(s): US breast LT limited mamm only ?? Accession Number(s): [id number] ? cc: Jah Root MD ? EXAMINATION: [...] DD/ 1315 ? TD/TT: 08/13/24 1430 ? Industrial Ecology Technician: ? Procedure Note Solo, Image - 08/13/2024 Roland [facility] [address] [place] [address] [place] [address] Ultrasound Report Signed Patient: Radha Rodarte [facility]#: [id number] 62 : 1985Acct:[id number] Age/Sex: 38 / FADM Date: 08/13/24 Loc: HO.MAMMO Attending Dr: Jah Dejesus MD Ordering Physician: Jah Root MD Date of Service: 08/13/24 Procedure(s): US breast LT limited mamm only Accession Number(s): [id number] cc: Jah Root MD EXAMINATION: MM DIAGNOSTIC [...] by: Amanda Santana DO 08/13/2024 02:47 PM [facility] Dictated By: Amanda Santana DO Signed By: <Electronically signed by Amanda Santana DO in OV> 08/13/24 1447 DD/ 1315 TD/TT: 08/13/24 1430 Industrial Ecology Technician: Jah Dejesus MD [facility] US PROCEDURES Edited Result - Final * HEPATITIS C AB W/REFL TO HCV RNA, QN, PCR (07/06/2021 3:02 PM EDT) HEPATITIS C ANTIBODY NON-REACT IGNACIO NON-REACT IGNACIO Droid system master LAB SYSTEM INDEX 0.02 <1.00 [facility] Comment: ?? HCV antibody was non-reactive. There is no laboratory ?? evidence of HCV infection. ?? In most cases, no further action is required. However, if recent HCV exposure is suspected, a test for HCV RNA (test code 48525) is suggested. ?? For additional information please refer to http://ArQule.femeninas/faq/UXC23s7 (This link is being provided for informational/ educational purposes only.) ?? 07/06/2021 3:02 PM EDT Jah Dejesus MD HISTORICAL/NON ORD ERABLE LABS Final Result Performing Organization Address [facility] de Phone Number [facility] [address] * HIV 1/2 ANTIGEN/ANTIBODY,FOURTH GENERATION W/RFL [...] ? For additional information please refer to http://ArQule.femeninas/faq/OXD272 (This link is being provided for informational/ educational purposes only.) ? The performance of this assay has not been clinically validated in patients less than 2 years old. ?? 07/06/2021 3:02 PM EDT Jah Dejesus MD LAB BLOOD ORDERABL ES Final Result Performing Organization Address [facility]/State/ZIP Co de Phone Number [facility] [address] [place] [phone] * PAP/HPV (04/14/2020 12:00 AM EDT) Pap Smear 1. NILM 1. NILM HPV Undetected Undetected, Indeterminate , Quantitative, Not Detected us Historical Provider HEALTH MAINTENANCE Edited Result - Final from Last 3 Months or Most Recently Relevant to Health Maintenance Insurance [facility] Care Teams Cushion Assembler Relationship Specialty Start Date End Date Jah Root MD [address] [place] [address] [place] [address] PCP - General Internal Medicine 01/26/20
--- OUTSIDE RECORDS SUMMARY | 2024-12-29 18:40 | XMS_ITS | Encounter Summary ---
Author Organization [employer] Address [address] [facility] 7t [place] [address] Care Team Providers Care Credit Verification Clerk Name Role Phone Jah Root MD Primary Care Prov ider Reason for Visit * Reason Onset Date Comments Nurse Triage 08/06/2023 Encounter Details Date Type Department Care Team (Late st Contact Info) Description 08/06/2023 Telephone [facility] [address] [place] [address] Jah Root MD [address] [place], [place] [phone] Nurse Triage Social History Tobacco Use Types [...] at lat visit 07/26/23. Per pt did lease picker meclizine and took as instructed but dizziness [...] Upcoming Encounters Date Type Department Care Team ([facility] st Contact Info) Description 02/16/2025 3:30 PM EDT Office Visit [facility] [address] [place] [address] Jah Root MD [address] [place] [address] documented as of this encounter Visit Diagnoses Not on filedocumented in this encounter Additional Health Concerns Assessment Noted Time PHQ-9 Depression Total Score: 10 023 2:28 PM EST documented as of this encounter Care Teams Credit Verification Clerk Relationship Specialty Start Date End Date Jah Root MD [address] [place] [address] PCP - General Internal Medicine 01/26/20 documented as of this encounter
--- OUTSIDE RECORDS SUMMARY | 2024-12-29 18:40 | XMS_ITS | Clinical Summary ---
Author Organization [facility] Address [address] [place], [place] [phone] Care Team Providers Care Maxillofacial Prosthetics Dentist Name Role Phone Jah Cobian MD Primary Care Provider [phone] Allergies No known active allergies Medications Medication [...] age to complete this topic Care Teams Maxillofacial Prosthetics Dentist Relationship Specialty Start Date End Date Jah Cobian MD [address] [place] [phone] PCP - General Internal Medicine 04/29/24
--- OUTSIDE RECORDS SUMMARY | 2024-12-29 18:40 | XMS_ITS | Encounter Summary ---
Author Organization [employer] Address [address] [facility] 7t [place] [address] Care Team Providers Care Air Analysis Engineering Technician Name Role Phone Jah Root MD Primary Care Prov ider Reason for Visit * Reason Onset Date Comments FYI 09/30/2024 Encounter Details Date Type Department Care Team ([facility] st Contact Info) Description 09/30/2024 Telephone [facility] [address] [place] [address] Jah Root MD [address] [place], [place] [phone] Social History Tobacco Use Types Packs/Day Years [...] - 09/30/2024 9:48 AM EST TC from [facility] with Anya FIELDS wanting to advise will be sending image report via fax today for provider to report . States finding are Para Spinal Lesions documented in this encounter Plan of Treatment Upcoming Encounters Date Type Department Care Team (Late st Contact Info) Description 02/16/2025 3:30 PM EDT Office Visit [facility] [address] [place] [address] Jah Root MD [address] [place] [address] documented as of this encounter Visit Diagnoses Not on filedocumented in this encounter Additional Health Concerns Assessment Noted Time PHQ-9 Depression Total Score: 8 10/30/19 24 9:42 AM EST documented as of this encounter Care Teams Air Analysis Engineering Technician Relationship Specialty Start Date End Date Jah Root MD [address] [place] [address] PCP - General Internal Medicine 01/26/20 documented as of this encounter
--- OUTSIDE RECORDS SUMMARY | 2024-12-29 18:41 | XMS_ITS | Clinical Summary ---
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 file Not on file Not on file Obstetrics History Para Term AB IAB SAB Ectopic Multiple Livin g Live Births 3 3 3 3 3 Date Outcome GA Total Labor Labor/2nd/3rd Weight Sex Type Anes PTL Gemma A1 A5 Name Clin 004 Term 40w 0d 3912 g (138 oz) M Vag-S pont Epidur al N Livin g Complications:None Delivery Location:[facility] 007 Term 40w 0d 3912 g (138 oz) M Vag-S pont None N Livin g Complications:None Delivery Location:[facility] 016 Term 40w 0d 3175 g (112 oz) M Vag-S pont Epidur al N Livin g Complications:None Delivery Location:[facility] Last Filed Vital Signs Vital Sign [...] 10:00 AM EDT Office Visit [facility] [place] [address] [place] [phone] Waldo Kerr DO [address] [place] [address] Health Maintenance Due Date Last Done Comments [...] age to complete this topic Meningococcal B Vaccine Aged Out No l onger eligible based on patient's age to complete this topic RSV Immunization Patients Under 20 months Aged Out No longer eligible based on patient's age to complete this topic Varicella Vaccines Aged Out No longer eligible based on patient's age to complete this topic Procedures Procedure Name Priority Date/Time Associated Diagnosis Comments US ABDOMEN LIMITED Routine 10/12/2024 7: 09 AM EST Liver lesion MG MAMMO DIGITAL [...] No evidence of biliary obstruction. Telerad ONEL ([id number]) -------- FINAL REPORT -------- Dictated By: Adalgisa Sands Dictated Date: 10/12/2024 11:21 ET Assigned Physician: Adalgisa Sands Reviewed and Electronically Signed By: Adalgisa Sands Signed Date: 10/12/2024 11:26 ET Workstation ID: [id number] Transcribed By: Self Edit Transcribed Date: 10/12/2024 11:21 ET Narrative 10/12/2024 11:26 AM EST History: Follow-up 1.5 cm right lobe liver lesion. Comparison: Right upper quadrant ultrasound 02/21/24 ([place], [place]), CT abdomen/pelvis 09/03/22 [place], [place], Abdominal MRI 09/22/24 ([place], [place]) Findings: Real-time imaging of the abdomen, [...] lesion. Comparison: Right upper quadrant ultrasound 02/21/24 ([place], [place]), CT abdomen/pelvis 09/03/22 [place], [place], Abdominal MRI 09/22/24 ([place], [place]) Findings: Real-time imaging of the abdomen, [...] post cholecystectomy. No evidence of biliary obstruction. GLOBALDRUMangel SYKES ([id number]) -------- FINAL REPORT -------- Dictated By: Adalgisa Sands Dictated Date: 10/12/2024 11:21 ET Assigned Physician: Adalgisa Sands Reviewed and Electronically Signed By: Adalgisa Sands Signed Date: 10/12/2024 11:26 ET Workstation ID: [id number] Transcribed By: Self Edit Transcribed Date: 10/12/2024 11:21 ET us Gayle SYKES IMG US PROCEDURES Final Resul t * MG Mammo Digital Diagnostic bilat (08/25/2024 9:35 AM EST) Anatomical Region Laterality Modality Breast Bilateral Mammography Historical Provider MD WALTERS BI PROCEDURES Final R esult * Hepatitis C antibody (08/20/2024 2:45 PM EST) Hepatitis C Antibody Negative Negative LAB CHEMISTRY METHOD 08/20/2024 5:07 PM EST [facility]) [facility] Blood Venous blood specimen / Unknown Venipuncture / Unknown 08/20/2024 2:45 PM EST 08/20/2024 3:46 PM EST us Germaine Robles CNM LAB BLOOD ORDERABLES Final Re sult [facility] [address] [place] [address], [place] [phone] * Cervical Cancer Screening: HPV (07/10/2023) Cervical Cancer Screening: HPV No interpreta tion,abstr acted us Historical Provider MD HEALTH MAINTENANCE Final Result from Last 3 Months or Most Recently Relevant to Health Maintenance Insurance MEDICAID - [place] Care Teams Dog Breeder Relationship Specialty Start Date End Date Jah Root [address] [place], [place] PCP - General 04/29/24
== END 2024-12-29 16:00 | disposition home or self-care (01) ==
LOC: HO.MRI 15:59
PROVIDERS: PCP Internal Medicine; Visit Provider Registered Nurse
DX: M89.8X9 Other specified disorders of bone, unspecified site (principal); D32.9 Benign neoplasm of meninges, unspecified
CPT/HCPCS: 70553; 73221; A9585

== ENCOUNTER 2025-03-01 12:29 | Outpatient (REF) | payer OTHER, SELFPAY ==
[2025-03-01 13:44] LABS: MANUAL DIFF FLAG NO
--- OUTSIDE RECORDS SUMMARY | 2025-03-01 13:49 | XMS_ITS | Clinical Summary ---
Author Organization [facility] Address [address] [place] [address] Care Team Providers Care Director Product Safety Name Role Phone Jah Cobian MD Primary Care Provider [phone] Allergies No known active allergies Medications Medication [...] 84 05/26/2024 1:42 PM EDT Temperature 36.8 C (98.3 F) 05/26/2024 1:42 PM EDT Respiratory Rate 18 05/26/2024 1:42 PM EDT [...] 03/29/1997, 07/10/1990, Additional history exists Influenza Vaccine (Season Ended) 2025 06/20/2016, 05/30/2015 Hepatitis B Vaccines Completed 03/29/1997, 06/02/1996, 04/06/1996 Pneumococcal Vaccine Aged Out No long er eligible based on patient's age to complete this topic RSV Ped < 20 months Aged Out No longe r eligible based on patient's age to complete this topic Care Teams Director Product Safety Relationship Specialty Start Date End Date Jah Cobian MD [address] [place] [phone] PCP - General Internal Medicine 04/29/24
[2025-03-01 13:50] LABS: Basophils Absolute Auto 0.1 X10*3/uL (0.0-0.2); Basophils Percent Auto 0.5 % (0-2); Eosinophils Percent Auto 0.4 % (0-4); Hemoglobin 12.1 g/dl (12.0-16.0); Imm Gran Abs Auto 0.06 X10*3/uL (0.00-0.03); Imm Gran Pct Auto 0.6 % (0.0-0.4); Lymphocytes Absolute Auto 2.4 X10*3/uL (1.2-4.9); Lymphocytes Percent Auto 23.3 % (20-40); Mean Corpuscular HGB Conc 33.6 g/dl (31.0-35.0); Mean Corpuscular Hemoglobin 25.6 pg (27.0-33.0); Mean Corpuscular Volume 76.3 fL (80.0-98.0); Mean Platelet Volume 10.1 fL (9.4-12.3); Monocytes Absolute Auto 0.5 X10*3/uL (0.1-1.2); Monocytes Percent Auto 5.1 % (2-11); Neutrophils Absolute Auto 7.3 x10*3/uL (2.0-8.3); Neutrophils Percent Auto 70.1 % (45-73); Platelet Count 263 X10*3/uL (160-400); Red Blood Count 4.72 X10*6/uL (4.20-5.50); Red Cell Distribution Width 13.3 % (11.0-16.0); White Blood Count 10.4 X10*3/uL (4.8-10.8)
[2025-03-01 14:11] LABS: Iron 34 mcg/dL (30-160); Percent Iron Saturation 10 % (15-50); Total Iron Binding Capacity 332 mcg/dL (228-428); Unsaturated Iron Binding 298 ug/dL
== END 2025-03-01 12:30 | disposition home or self-care (01) ==
LOC: HO.CHCLDS 12:29
PROVIDERS: Visit Provider Internal Medicine
DX: D50.0 Iron deficiency anemia secondary to blood loss (chronic) (principal)
CPT/HCPCS: 36415; 83540; 85025

== ENCOUNTER 2025-05-05 09:52 | Outpatient (REF) | payer OTHER, SELFPAY ==
--- OUTSIDE RECORDS SUMMARY | 2025-05-05 09:15 | XMS_ITS | Encounter Summary ---
Author Organization [employer] Address [address] [place] [address] [address]t [place] [address] Care Team Providers Care Clay Caster Name Role Phone Brynn Parmar MD Primary Care Provider [phone] Reason for Visit * Reason Comments Establish Care Encounter Details Date Type Department Care Team (Latest Contact Info) Description 05/05/2025 9:15 AM EDT Office Visit [facility] MED & PEDS [address] [place], [place] [phone] Brynn Parmar MD [address] [place], [place] [phone] Hiatal hernia (Primary Dx); Thalassemia trait; Encounter for immunization; Attention and concentration deficit; Gradual-onset memory impairment; Vitamin D deficiency; Overweight Social History Tobacco Use Types Packs/Day Years Used Date Smoking Tobacco: Never Passive Smoke Exposure: Never Smokeless Tobacco: Never Tobacco Cessation:Counseling Given: Not Answered Alcohol Use Standard Drinks/Week Comments Never 0 (1 standard drink = 0.6 oz pur e alcohol) Depression Answer Date Recorded Patient Health Questionnaire-9 Score 15 05/05/2025 Patient Health Questionnaire-9 Score 15 05/05/2025 Last PHQ-9: Questionnaire Data Not on file 0 05/05/2025 Housing Stability Answer Date Recorded What is [...] Answer Date Recorded Patient Health Questionnaire-2 Score 3 05/05/2025 Internet Access Answer Date Recorded Internet Access Q1 Yes 12/09/2024 Internet Access Q2 Not on file 12/09/2024 Comments No Sex and Gender Information Value Date Recorded Sex Assigned at Female 07/09/2022 10:14 AM EDT Legal Sex Female 10:14 AM EDT Gender Identity Female 07/09/2022 10:14 AM EDT Sexual Orientation Straight 07/09/2022 10 :14 AM EDT documented as of this encounter Last Filed Vital Signs Vital Sign Reading Time Taken Comments Blood Pressure 127/80 05/05/2025 8:55 AM EDT Pulse 85 05/05/2025 8:55 AM EDT Temperature 36.4 C (97.6 F) 05/05/2025 8:55 AM EDT Respiratory Rate 18 05/05/2025 8:55 AM EDT Oxygen Saturation - - Inhaled Oxygen Concentration - - Weight 75.2 kg (165 lb 12.8 oz) 05/05/2025 8:55 AM EDT Height 163 cm (5' 4.17 ) 05/05/2025 8:55 AM EDT Body Mass Index 28.31 05/05/2025 8:55 AM EDT documented in this encounter Functional Status * Over the past 2 weeks, how often have you been bothered by any of the following problems? Question Answer Date of Assessment Author Patient Health Questionnaire-2 Score 3 05/05/2025 8:58 AM EDT Cora Cline MA * Little interest or pleasure in doing things Answer Date of Assessment Author More than half the days 05/05/2025 8:58 AM EDT Cora Trevino MA * Feeling down, depressed, or hopeless Answer Date of Assessment Author Several days 05/05/2025 8:58 AM QUANT Cora Cannon MA * Trouble falling or staying asleep, or sleeping too much Answer Date of Assessment Author Nearly every day 05/05/2025 8:58 AM EDT Cora Mora MA * Feeling tired or having little energy Answer Date of Assessment Author Nearly every day 05/05/2025 8:58 AM EDT Cora Mora MA * Poor appetite or overeating Answer Date of Assessment Author Several days 05/05/2025 8:58 AM EDT Cora Cannon MA * Feeling bad about yourself - or that you are a failure or have let yourself or your family down Answer Date of Assessment Author Several days 05/05/2025 8:58 AM Cora Dominique MA * Trouble concentrating on things, such as reading the newspaper or watching television Answer Date of Assessment Author Nearly every day 05/05/2025 8:58 AM EDCora Elias MA * Moving or speaking so slowly that other people could have noticed? Or the opposite - being so fidgety or restless that you have been moving around a lot more than usual. Answer Date of Assessment Author Several days 05/05/2025 8:58 AM Cora Dominique MA * Thoughts that you would be better off or hurting yourself in some way Answer Date of Assessment Author Not at all 05/05/2025 8:58 AM Cora Dominique MA * Patient Health Questionnaire-9 Score Answer Date of Assessment Author 15 05/05/2025 8:58 AM Cora Dominique MA * How difficult have these problems made it for you to do your work, take care of things at home, or get along with other people? Answer Date of Assessment Author Somewhat difficult 05/05/2025 8:58 AM EDT Cora Pleitez MA * Over the last 2 weeks, how often have you been bothered by any of the following problems? Question Answer Date of Assessment Author Feeling nervous, anxious, or on edge 3 05/05/2025 8:59 AM EDT Cora Cline MA Not being able to stop or control worrying 2 05/05/2025 8:59 AM EDT Cora Cline MA Worrying too much about different things 2 05/05/2025 8:59 AM EDT Cora Cline MA Trouble relaxing 2 05/05/2025 8:59 AM EDT Cora Trevino MA Being so restless that it is hard to sit still 1 05/05/2025 8:59 AM EDT Cora Cline MA Becoming easily annoyed or irritable 1 05/05/2025 8:59 AM EDT Cora Cline MA Feeling afraid as if something awful might happen 3 05/05/2025 8:59 AM EDT Cora Mora MA ROXANA-7 Total Score 14 05/05/2025 8:59 AM EDT Cora Cline MA documented as of this encounter Plan of Treatment Upcoming Encounters Date Type Department Care Team (Late st Contact Info) Description 05/11/2025 2:00 PM EDT Clinical Support [facility] MED & PEDS [address] [place] [address] 07/12/2025 9:15 AM EST Office Visit [facility] MED & PEDS [address] [place] [address] Brynn Parmar MD [address] [place] [address] Scheduled Orders Name Type Priority Associated Diagnoses Orde r Schedule CBC auto differential Lab Routine Gradual-onset memory impairment Expected: 05/05/2025 (Approximate), Expires: 05/05/2026 Comprehensive Metabolic Panel Lab Routine Gradual-onset memory impairment Expected: 05/05/2025 (Approximate), Expires: 05/05/2026 Lyme Disease Ab with Reflex to Blot (IgG, IgM) Lab Routine Gradual-onset memory impairment Expected: 05/05/2025, Expires: 05/05/2026 RPR (Monitor) with Reflex to Titer Lab Routine Gradual-onset memory impairment Expected: 05/05/2025, Expires: 05/05/2026 HIV-1/2 Antigen and Antibodies, Fourth Generation, with Reflexes Lab Routine Gradual-onset memory impairment Expected: 05/05/2025 (Approximate), Expires: 05/05/2026 Vitamin B12 (Cobalamin) and Folate Panel, Serum Lab Routine Gradual-onset memory impairment Expected: 05/05/2025 (Approximate), Expires: 05/05/2026 Vitamin D, 25-Hydroxy, Total, Immunoassay Lab Routine Vitamin D deficiency Expected: 05/05/2025 (Approximate), Expires: 05/05/2026 Lipid Panel, Standard Lab Routine Overweight Expected: 05/05/2025 (Approximate), Expires: 05/05/2026 documented as of this encounter Visit Diagnoses Diagnosis Hiatal hernia- Primary Diaphragmatic hernia without mention of obstruction or gangrene Thalassemia trait Other thalassemia Encounter for immunization Attention and concentration deficit Gradual-onset memory impairment Vitamin D deficiency Overweight documented in this encounter Additional Health Concerns Assessment Noted Time PHQ-9 Depression Total Score: 15 025 8:58 AM EDT documented as of this encounter Care Teams Clay Caster Relationship Specialty Start Date End Date Brynn Parmar MD [address] [place] [address] PCP - General Family Medicine 05/05/25 Raquel Camara Psychiatrist 09/09/19 Paige Therapist 05/05/25 Marilu Sheffield Consulting Physician Hematology 09/09/22 Waldo Kerr Consulting Physician Gastroenterology 07/10/24 documented as of this encounter
--- OUTSIDE RECORDS SUMMARY | 2025-05-05 10:33 | XMS_ITS | Encounter Summary ---
Author Organization [employer] Address [address] [place] [address] Care Team Providers Care Reimbursement Analyst Name Role Phone Jah Root MD Primary Care Prov ider Brynn Parmar MD Primary Care Provider [phone] Encounter Details Date Type Department Care Team (Late st Contact Info) Description 04/13/2025 Orders Only [facility] MED & PEDS [address] [place], [place] [phone] Provider, MD Lalit Social History Tobacco Use Types Packs/Day Years Used Date Smoking Tobacco: Never Smokeless Tobacco: Never Alcohol Use Standard Drinks/Week Comments Never 0 (1 standard drink = 0.6 oz pur e alcohol) Depression Answer Date Recorded Patient Health Questionnaire-9 Score 9 02/23/2025 Patient Health Questionnaire-9 Score 9 02/23/2025 Last PHQ-9: Questionnaire Data Not on file 0 02/23/2025 Housing Stability Answer Date Recorded What is [...] Answer Date Recorded Patient Health Questionnaire-2 Score 4 02/23/2025 Internet Access Answer Date Recorded Internet Access [...] Upcoming Encounters Date Type Department Care Team ([facility] st Contact Info) Description 05/11/2025 2:00 PM EDT Clinical Support [facility] MED & PEDS [address] [place] [address] 07/12/2025 9:15 AM EST Office Visit [facility] PED[facility] [address] [place] [address] Brynn Parmar MD [address] [place] [address] documented as of this encounter Procedures Procedure Name Priority Date/Time Associated Diagnosis Comments XR BARIUM SWALLOW (ESOPHAGRAM) Routine 04/12/2025 8:48 AM EDT documented in this encounter Results * XR BARIUM SWALLOW (ESOPHAGRAM) (04/12/2025 8:48 AM EDT) Anatomical Region Laterality Modality Chest Radiographic Yamileth ging us Historical Provider MD WALTERS XR PROCEDURES Final R esult documented in this encounter Visit Diagnoses Not on filedocumented in this encounter Additional Health Concerns Assessment Noted Time PHQ-9 Depression Total Score: 9 02/24/20 25 1:16 PM EDT documented as of this encounter Care Teams Reimbursement Analyst Relationship Specialty Start Date End Date Jah Root MD [address] [place] [address] PCP - General Internal Medicine 01/26/20 05/04/25 Brynn Parmar MD [address] [place] [address] PCP - General Family Medicine 05/05/25 Raquel Camara Psychiatrist 09/09/19 Paige Therapist 05/05/25 Marilu Sheffield Consulting Physician Hematology 09/09/22 Waldo Kerr Consulting Physician Gastroenterology 07/10/24 documented as of this encounter
--- OUTSIDE RECORDS SUMMARY | 2025-05-05 10:33 | XMS_ITS | Encounter Summary ---
Author Organization [employer] Address [address] [facility] 7t [place] [address] Care Team Providers Care Brickmason Helper Name Role Phone Jah Root MD Primary Care Prov ider Reason for Visit * Reason Onset Date Comments chart prep 05/04/2025 Encounter Details Date Type Department Care Team ([facility] st Contact Info) Description 05/04/2025 Telephone [facility] [address] [place] [address] Brynn Parmar MD [address] [place] [address] chart prep Social History Tobacco Use Types Packs/Day Years [...] encounter Miscellaneous Notes * Telephone Encounter - Sakshi Martinez MA - 05/04/2025 9:40 AM EDT Chart Prep Labs: done Images: done Referrals: complete Vaccines due: Covid, Flu, and Hep A Screenings: pap smear Overdue care gaps: PHQ-9 and Disability screen documented in this encounter Plan of Treatment Upcoming Encounters Date Type Department Care Team ([facility] st Contact Info) Description 05/11/2025 2:00 PM EDT Clinical Support [facility] MED & PEDS [address] [place] [address] 07/12/2025 9:15 AM EST Office Visit [facility] MED & PEDS [address] [place] [address] Brynn Parmar MD [address] [place] [address] documented as of this encounter Visit Diagnoses Not on filedocumented in this encounter Additional Health Concerns Assessment Noted Time PHQ-9 Depression Total Score: 9 02/24/20 25 1:16 PM EDT documented as of this encounter Care Teams Brickmason Helper Relationship Specialty Start Date End Date Jah Root MD [address] [place] [address] PCP - General Internal Medicine 01/26/20 05/04/25 Raquel Camara Psychiatrist 09/09/19 Marilu Sheffield Consulting Physician Hematology 09/09/22 Waldo Kerr Consulting Physician Gastroenterology 07/10/24 documented as of this encounter
--- OUTSIDE RECORDS SUMMARY | 2025-05-05 10:33 | XMS_ITS | Encounter Summary ---
Author Organization [employer] Address [address] [facility] 7t [place] [address] Care Team Providers Care Sewage Disposal Worker Name Role Phone Jah Root MD Primary Care Prov ider Brynn Parmar MD Primary Care Provider [phone] Reason for Visit * Reason Onset Date Comments Results 03/22/2025 Encounter Details Date Type Department Care Team ([facility] st Contact Info) Description 03/22/2025 Results Follow-Up [facility] MED & PEDS [address] [place], [place] [phone] Jah Root MD [address] [place], [place] [phone] CBC auto differential, Iron And Total Iron Binding Capacity Social History Tobacco Use Types Packs/Day Years [...] encounter Miscellaneous Notes * Telephone Encounter - Nell Frances RN - 03/23/2025 9:21 AM EDT TC placed to pt via [employer] ton container shipper (Cecy ID#[id number]) to inform and advise of below PCP message. Advised pt of abnormal lab result showing iron def anemia. Advised pt they need to follow up with hematology as she does not tolerated oral iron replacement. Pt verbalized understanding. Pt requesting referral to hematology as when previously going, they required a referral. Message forwarded to PCP to review request and advise. ----- Message from Jah Dejesus MD sent at 03/22/2025 10:41 PM EDT ----- Please call the patient regarding her abnormal result. She has iron def anemia, needs to follow up with hematology as she does not tolerated oral iron replacement ----- Message ----- From: Interface, Lab Results In Sent: 03/01/2025 1:51 PM EDT To: Jah Dejesus MD documented in this encounter Plan of Treatment Upcoming Encounters Date Type Department Care Team (Late st Contact Info) Description 05/11/2025 2:00 PM EDT Clinical Support [facility] MED & PEDS [address] [place] [address] 07/12/2025 9:15 AM EST Office Visit [facility] MED & PEDS [address] [place] [address] Brynn Parmar MD [address] [place] [address] documented as of this encounter Visit Diagnoses Not on filedocumented in this encounter Additional Health Concerns Assessment Noted Time PHQ-9 Depression Total Score: 9 02/24/20 1:16 PM EDT documented as of this encounter Care Teams Sewage Disposal Worker Relationship Specialty Start Date End Date CobianJah Cross MD [address] [place] [address] PCP - General Internal Medicine 01/26/20 05/04/25 Brynn Parmar MD [address] [place] [address] PCP - General Family Medicine 05/05/25 Raquel Camara Psychiatrist 09/09/19 Paige Therapist 05/05/25 Marilu Sheffield Consulting Physician Hematology 09/09/22 Waldo Kerr Consulting Physician Gastroenterology 07/10/24 documented as of this encounter
--- OUTSIDE RECORDS SUMMARY | 2025-05-05 10:34 | XMS_ITS | Encounter Summary ---
Author Organization [employer] Address [address] [facility] 7t [place] [address] Care Team Providers Care First Crusher Name Role Phone Brynn Parmar MD Primary Care Provider [phone] Encounter Details Date Type Department Care Team (Latest Contact Info) Description 05/05/2025 Travel Social History Tobacco Use Types Packs/Day Years Used Date Smoking Tobacco: Never Passive Smoke Exposure: Never Smokeless Tobacco: Never Alcohol Use Standard [...] AM EDT documented as of this encounter Functional Status * Over the [...] 8:58 AM EDT Cora Cannon MA * Trouble falling or [...] AM QUANT Cora Cannon MA * Trouble concentrating on things, such as reading the newspaper or watching television Answer Date of Assessment Author Nearly every day 05/05/2025 8:58 AM EDT Cora Mora MA * Moving or speaking so slowly [...] or on edge 3 05/05/2025 8:59 AM Cora Beavers MA Not being able to stop or control worrying 2 05/05/2025 8:59 AM Cora Beavers MA Worrying too much about different things 2 05/05/2025 8:59 AM Cora Beavers MA Trouble relaxing 2 05/05/2025 8:59 AM EDT Cora Trevino MA Being so restless that it is hard to sit still 1 05/05/2025 8:59 AM Cora Beavers MA Becoming easily annoyed or irritable 1 05/05/2025 8:59 AM Cora Beavers MA Feeling afraid as if something awful might happen 3 05/05/2025 8:59 AM EDT Cora Mora MA ROXANA-7 Total Score 14 05/05/2025 8:59 AM Cora Beavers MA documented as of this encounter Plan of Treatment Upcoming Encounters Date Type Department Care Team (Late st Contact Info) Description 05/11/2025 2:00 PM EDT Clinical Support [facility] MED & PEDS [address] [place] [address] 07/12/2025 9:15 AM EST Office Visit [facility] MED & PEDS [address] [place] [address] Brynn Parmar MD [address] [place] [address] documented as of this encounter Visit Diagnoses Not on filedocumented in this encounter Additional Health Concerns Assessment Noted Time PHQ-9 Depression Total Score: 15 025 8:58 AM EDT documented as of this encounter Care Teams First Crusher Relationship Specialty Start Date End Date Brynn Parmar MD [address] [place] [address] PCP - General Family Medicine 05/05/25 Raquel Camara Psychiatrist 09/09/19 Paige Therapist 05/05/25 Marilu Sheffield Consulting Physician Hematology 09/09/22 Waldo Kerr Consulting Physician Gastroenterology 07/10/24 documented as of this encounter
--- OUTSIDE RECORDS SUMMARY | 2025-05-05 10:34 | XMS_ITS | Encounter Summary ---
Author Organization [employer] Address [address] [facility] [address] [place] [address] Care Team Providers Care Washing Machine Mechanic Name Role Phone Jah Root MD Primary Care Prov ider Brynn Parmar MD Primary Care Provider [phone] Reason for Visit * Reason Onset Date Comments Change PCP 10/28/2024 Encounter Details Date Type Department Care Team ([facility] st Contact Info) Description 10/28/2024 Telephone [facility] PED[facility] [address] [place], [place] [phone] Jah Root MD [address] [place], [place] [phone] Change PCP Social History Tobacco Use Types [...] and results were sent to PCP from [facility] to review next steps and has not heard anything. Pt states feels like she needs aprovider who will be more responsive and available. Pt prefers to stay at the [facility] location. Pt infor med of [...] Description 05/11/2025 2:00 PM EDT Clinical Support [facility]ED[facility] [address] [place] [address] 07/12/2025 9:15 AM EST Office Visit [facility]ED[facility] [address] [place] [address] Brynn Parmar MD [address] [place] [address] documented as of this encounter Visit Diagnoses Not on filedocumented in this encounter Additional Health Concerns Assessment Noted Time PHQ-9 Depression Total Score: 8 10/30/19 9:42 AM EST documented as of this encounter Care Teams Washing Machine Mechanic Relationship Specialty Start Date End Date Jah Root MD [address] [place] [address] PCP - General Internal Medicine 01/26/20 05/04/25 Brynn Parmar MD [address] [place] [address] PCP - General Family Medicine 05/05/25 Raquel Camara Psychiatrist 09/09/19 Paige Therapist 05/05/25 Marilu Sheffield Consulting Physician Hematology 09/09/22 Waldo Kerr Consulting Physician Gastroenterology 07/10/24 documented as of this encounter
--- OUTSIDE RECORDS SUMMARY | 2025-05-05 10:34 | XMS_ITS | Encounter Summary ---
Author Organization [employer] Address [address] [facility] 7t [place] [address] Care Team Providers Care Cafeteria Assistant Name Role Phone Jah Root MD Primary Care Prov ider Brynn Parmar MD Primary Care Provider [phone] Reason for Visit * Reason Onset Date Comments Appointment Request 09/15/2024 Encounter Details Date Type Department Care Team (Late st Contact Info) Description 09/15/2024 Telephone [facility] [address] [place] [address] Jah Root MD [address] [place], [place] [phone] Appointment Request Social History Tobacco Use Types [...] Miscellaneous Notes * Telephone Encounter - Sukhdev Donn - 09/15/2024 9:08 AM EST Tc from pt looking to reschedule Derm appt due to transportation issues. documented in this encounter Plan of Treatment Upcoming Encounters Date Type Department Care Team (Late st Contact Info) Description 05/11/2025 2:00 PM EDT Clinical Support [facility] MED & PEDS [address] [place] [address] 07/12/2025 9:15 AM EST Office Visit [facility] MED & PED[facility] [address] [place] [address] Brynn Parmar MD [address] [place] [address] documented as of this encounter Visit Diagnoses Not on filedocumented in this encounter Additional Health Concerns Assessment Noted Time PHQ-9 Depression Total Score: 8 10/30/19 24 9:42 AM EST documented as of this encounter Care Teams Cafeteria Assistant Relationship Specialty Start Date End Date Jah Root MD [address] [place] [address] PCP - General Internal Medicine 01/26/20 05/04/25 Brynn Parmar MD [address] [place] [address] PCP - General Family Medicine 05/05/25 Raquel Camara Psychiatrist 09/09/19 Paige Therapist 05/05/25 Marilu Sheffield Consulting Physician Hematology 09/09/22 Waldo Kerr Consulting Physician Gastroenterology 07/10/24 documented as of this encounter
--- OUTSIDE RECORDS SUMMARY | 2025-05-05 10:34 | XMS_ITS | Clinical Summary ---
Author Organization [facility] Address [address] [facility] [address] [place] [phone] Phone Care Team Providers Care Broach Operator Name Role Phone Jah Root MD Primary Care Prov ider Allergies No known active allergies Medications CARAFATE 100 mg/mL suspension TAKE 10 ML BY MOUTH 4 TIMES A DAY BEFORE MEAL/BED 11/13/2022 Active famotidine (PEPCID) 20 MG tablet Take 20 mg by mouth 2 (two) times a day. for 10 days 11/18/2022 Active RABEprazole (ACIPHEX) 20 mg tablet Take 1 tablet (20 mg total) by mouth daily. 90 tablet 03/11/2023 Active Active Problems No known active problems Social History Tobacco Use Types Packs/Day Years Used Date Smoking Tobacco: Never Assessed Education Answer Date Recorded Are you interested in more education? Not on jerson e 01/05/2023 Are you concerned about learning? Not on file 01/05/2023 No 01/05/2023 No 01/05/2023 Digital Access Answer Date Recorded No 02/03/2023 No 02/03/2023 No 02/03/2023 Reliable internet access at home? Not on file 02/03/2023 Device with a working camera? Not on file Comments Unknown Sex and Gender Information Value Date Recorded Sex Assigned at Not on file Legal Sex Female 9:58 AM EST Gender Identity Not on file Sexual Orientation Not on file Last Filed Vital Signs Vital Sign Reading Time Taken Comments Blood Pressure 125/71 12/07/2022 8:20 AM EDT Pulse 80 12/07/2022 8:20 AM EDT Temperature 36.7 C (98 F) 12/07/2022 8:20 AM EDT Respiratory Rate - - Oxygen Saturation - - Inhaled Oxygen Concentration - - Weight 73.5 kg (162 lb) 12/07/2022 8:15 AM EDT Height 160 cm (5' 3 ) 12/07/2022 8:15 AM EDT Body Mass Index 28.7 12/07/2022 8:15 AM EDT Plan of Treatment Health Maintenance Due Date Last Done Comments DEPRESSION SCREENING 1996 SMOKING Hx and SMOKELESS TOBACCO SCREENING 1997 HEPATITIS C SCREENING 2002 HIV ONE-TIME SCREENING (18-6 5 YEARS) 2002 PAP SMEAR 2005 SCREENING FOR DIABETES 12/05/2019 Adult Td,Tdap Booster 06/29/2021 06/29/2011 , 03/29/1997 COVID-19 VACCINE ( - 2023-2 5 season) 2024 10/06/2021, 01/18/2021, 12/21/2020 MAMMOGRAM 2024 INFLUENZA VACCINE (#1) 2025 6, 05/30/2015, 07/28/2012 HEPATITIS A VACCINES Aged Out No long er eligible based on patient's age to complete this topic HIB VACCINES Aged Out No longer eligi ble based on patient's age to complete this topic MENINGOCOCCAL VACCINES (ACWY) Aged Out No longer eligible based on patient's age to complete this topic MENINGOCOCCAL VACCINES (B) Aged Out N o longer eligible based on patient's age to complete this topic PNEUMOCOCCAL VACCINES (0-49 years) Aged Out No longer eligible b ased on patient's age to complete this topic Medical Devices Not on file Insurance [facility] [employer] [place] [id number] [employer] [place] [address] [place] [address] [place] [address] [place] [address] [place] [address] [place] [address] A[employer] [facility] [employer] Care Teams Broach Operator Relationship Specialty Start Date End Date Jah Root MD [address] [place] [id number] PCP - General Internal Medicine 02/08/22 Additional Source Comments The information contained in this document represents components of the legal health record. It is not the complete legal health record.[facility]
--- OUTSIDE RECORDS SUMMARY | 2025-05-05 10:34 | XMS_ITS | Clinical Summary ---
Author Organization [facility] Address [address] [place] [address] Phone Care Team Providers Care Clinical Trial Associate Name Role Phone Jha Root Primary Care Provide r Allergies No known active allergies Medications cholecalciferol (VITAMIN D-3) 50 mcg (2,000 unit) capsule Take 1 tablet by mouth daily. 0 Active docusate sodium (COLACE) 100 mg capsule Take 1 capsule by mouth daily for 30 days. 1 Active pantoprazole (PROTONIX) 20 mg EC tablet [...] before your procedure. 4000 mL 4 Active Additional Information Patient not taking.Reported on 03/02/2025 bisacodyL (DULCOLAX) 5 mg EC tablet Take 2 tablets by mouth right before beginning bowel prep. See instructions provided by the office 2 tablet 4 Active albuterol HFA (PROAIR HFA ; PROVENTIL HFA ; VENTOLIN HFA) 90 mcg/actuation inhaler Inhale 2 puffs by mouth Every 4 hours as needed. 3 Active norgestimate-et hinyl estradioL (ORTHO-CYCLEN) 0.25-0.035 mg per tablet TAKE 1 TABLET BY MOUTH DAILY, TAKE ACTIVE PILLS ONLY FOR 12 WKS, THEN TAKE INACTIVE PILLS FOR 1 WK 4 Active minoxidiL (LONITEN) 2.5 mg tablet Take 1 tablet (2.5 mg total) by mouth daily. 4 Active norethindrone (AYGESTIN) 5 mg tablet Take 1 tablet (5 mg total) by mouth 1 (one) time each day. Active meclizine (ANTIVERT) 25 mg tablet take 1 tablet orally 3 times a day as needed for dizziness 5 Active fluvoxaMINE (LUVOX) 50 mg tablet 5 Active gabapentin (NEURONTIN) 100 mg capsule 5 Active ketoconazole (NIZORAL) 2 % shampoo Apply topically. 4 Active prazosin (MINIPRESS) 2 mg capsule 5 Active Voquezna 10 mg tablet TAKE 1 TABLET BY MOUTH EVERY DAY 90 tablet 1 5 Active Active Problems Problem Noted Date Diagnosed Date Cerebral meningioma ([facility] V24, [facility] V28) 0 01/14/2025 Assessment & Plan (01/14/2025 3:58 PM EDT): I reviewed the imaging findings in detail with Ms. Rodarte and agree that this is likely a small meningioma. There is no evidence of edema or hemorrhage and this would not cause her dizziness. She has no family history of meningioma and no history of breast cancer herself. At this point, this is an incidental finding and we can follow it with a repeat MRI of the brain in 1 year. Subclinical hypothyroidism 04/01/2024 Menorrhagia with irregular cycle [...] Encounters Date Type Department Care Team Description 04/12/2025 7:20 AM EDT - 04/12/2025 11:59 PM EDT Hospital Encounter [facility] Xray [address] [place] [address] Hiatal hernia with GERD Discharge Disposition: Home or Self Care 03/02/2025 11:00 AM EDT Consult General Surgery - [facility] [address] [facility] [address] [place] [phone] Jordi Almanza MD Hiatal hernia with GERD 02/15/2025 6:58 AM EDT - 02/15/2025 11:59 PM EDT Hospital Encounter [facility] Ultrasound [address] [place] [address] Change in bowel habit; Irritable bowel syndrome with both constipation and diarrhea; Overweight Discharge Disposition: Home or Self Care 02/05/2025 Telephone Gastroenterology - [facility] [address] [facility] [address] [facility] [address] [place] [id number] Waldo Kerr DO from Last 3 Months Surgical History Surgery Date Site/Laterality Comments TONSILLECTOMY ADENOIDECTOMY, BILATERAL MYRINGOTOMY AND TUBES PROCEDURE: CA TONSILLECTOMY & ADENOIDECTOMY <AGE 11 UTERINE FIBROID SURGERY 09/09/2021 - 09/08/2022 N/A CHOLECYSTECTOMY Medical History Medical History Date Comments Anxiety state DX:Anxiety state Anemia DX:Anemia Gestational diabetes mellitus 2015 DX :Gestational diabetes mellitus GERD (gastroesophageal reflux disease) Anemia Family History Medical History Relation Name Comments [...] Female 10/02/2024 4:12 PM EST Sexual Orientation Straight 01/29/2025 9: 56 AM EDT 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 on file Not on file Not on file Obstetrics History Para Term AB IAB SAB Ectopic Multiple Livin g Live Births 3 3 3 3 3 Date Outcome GA Total Labor Labor/2nd/3rd Weight Sex Type Anes PTL Gemma A1 A5 Name Clin 004 Term 40w 0d 3912 g (138 oz) M Vag-S pont Epidur al N Livin g Complications:None Delivery Location:[facility] 007 Term 40w 0d 3912 g (138 oz) M Vag-S pont None N Livin g Complications:None Delivery Location:[facility] 016 Term 40w 0d 3175 g (112 oz) M Vag-S pont Epidur al N Livin g Complications:None Delivery Location:[facility] Last Filed Vital Signs Vital Sign Reading Time Taken Comments Blood Pressure 120/80 03/02/2025 10:56 AM EDT Pulse 88 03/02/2025 10:56 AM EDT Temperature 36.4 C (97.6 F) 08/26/2024 2:55 PM EST Respiratory Rate 15 08/26/2024 3:56 PM EST Oxygen Saturation 98% 01/28/2025 10:18 AM EDT Inhaled Oxygen Concentration - - Weight 76.2 kg (168 lb) 03/02/2025 10:56 AM EDT Height 160 cm (5' 3 ) 01/28/2025 10:18 AM EDT Body Mass Index 29.76 01/28/2025 10:18 AM EDT Plan of Treatment Health Maintenance Due Date Last Done Comments Pneumococcal Vaccine: Pediatrics (0 to 5 Years) and At-Risk Patients (6 to 49 Years) (1 of 2 - PCV) 12/05/2003 HPV Vaccines (3 - Risk 3-dose series) 10/30/2011 06/29/2011, 11/28/2007 Social Influencers of Health Screening 08/18/2022 COVID-19 Vaccine ( season) 2024 10/06/2021, 01/18/2021, 12/21/2020 Depression Screening 09/09/2024 Influenza Vaccine (#1) 2025 6, 05/30/2015, 07/28/2012 Breast Cancer Screening 08/25/2026 08/25/2024 [...] on patient's age to complete this topic Hepatitis A Vaccines Aged Out No long er eligible based [...] Name Priority Date/Time Associated Diagnosis Comments XR ESOPHAGRAM Routine 04/12/2025 8:18 AM EDT Hiatal hernia with GERD US ABDOMEN LIMITED Routine 02/15/2025 7: 32 AM EDT Change in bowel habit Irritable bowel syndrome with both constipation and diarrhea Overweight MG MAMMO DIGITAL DIAGNOSTIC BILAT Routine 08/25/2024 9:35 AM EST HEPATITIS C ANTIBODY Routine 08/20/2024 2:45 PM EST Encounter for well woman exam with routine gynecological exam Screen for STD (sexually transmitted disease) HM HPV Routine 07/10/2023 from Last 3 Months or Most Recently Relevant to Health Maintenance Results * XR Esophagram (04/12/2025 8:18 AM EDT) Anatomical Region Laterality Modality Head and Neck Radiographic Yamileth ging 04/12/2025 12:2 1 PM EDT Impressions 04/12/2025 2:57 PM EDT Unremarkable double contrast esophagram exam. -------- FINAL REPORT -------- Dictated By: Shaniqua Dumas Dictated Date: 04/12/2025 12:21 ET Assigned Physician: Donavan Hendrickson Reviewed and Electronically Signed By: Donavan Hendrickson Signed Date: 04/12/2025 14:57 ET Workstation ID: [id number] Transcribed By: Self Edit Transcribed Date: 04/12/2025 12:24 ET Resident/PA/ANIMAL CONTROL SPECIALIST: Shaniqua Dumas Narrative 04/12/2025 2:57 PM EDT FINDINGS: Double contrast esophagram performed. COMPARISON: CT abdomen outside imaging from September 03, 2022 reviewed HISTORY: Patient is a 39-year-old female with history of dysphagia. History patient reported hiatal hernia. Healthcare Science Specialist radiographs: 1 view abdominal radiograph demonstrates nonobstructive bowel gas pattern. Visualized lung bases appear clear. Cholecystectomy clips are present. Osseous structures are overall unremarkable. Effervescent crystals were administered orally. Thick and thin barium were administered orally under fluoroscopic control. Pharyngoesophagram: Rapid sequence imaging of the hypopharynx during swallowing demonstrates prompt initiation of swallowing. There is normal soft palate elevation and normal epiglottic motion. There is no laryngeal penetration or belkys aspiration. There is no residual in the vallecula nor in the piriform sinuses. Thoracic esophagus: Normal distensibility, motility and mucosal pattern without evidence of ulceration, stricture or mass formation. Hiatal hernia: None Reflux: Unable to elicit 13mm Barium pill: Unable to swallow 13 mm barium tablet.. DAP: 359.2 uGym^2 Procedure Note Donavan Hendrickson MD - 04/12/2025 FINDINGS: Double contrast esophagram performed. COMPARISON: CT abdomen outside imaging from September 03, 2022 reviewed HISTORY: Patient is a 39-year-old female with history of dysphagia.History patient reported hiatal hernia. Healthcare Science Specialist radiographs: 1 view abdominal radiograph demonstrates nonobstructivebowel gas pattern. Visualized lung bases appear clear. Cholecystectomyclips are present. Osseous structures are overall unremarkable. Effervescent crystals were administered orally. Thick and thin barium wereadministered orally under fluoroscopic control. Pharyngoesophagram: Rapid sequence imaging of the hypopharynx duringswallowing demonstrates prompt initiation of swallowing. There is normalsoft palate elevation and normal epiglottic motion. There is no laryngealpenetration or belkys aspiration. There is no residual in the vallecula norin the piriform sinuses. Thoracic esophagus: Normal distensibility, motility and mucosal patternwithout evidence of ulceration, stricture or mass formation. Hiatal hernia: None Reflux: Unable to elicit 13mm Barium pill: Unable to swallow 13 mm barium tablet.. DAP: 359.2 uGym^2 IMPRESSION: Unremarkable double contrast esophagram exam. -------- FINAL REPORT -------- Dictated By: Shaniqua Dumas Dictated Date: 04/12/2025 12:21 ET Assigned Physician: Donavan Hendrickson Reviewed and Electronically Signed By: Donavan Hendrickson Signed Date: 04/12/2025 14:57 ET Workstation ID: [id number] Transcribed By: Self Edit Transcribed Date: 04/12/2025 12:24 ET Resident/PA/ANIMAL CONTROL SPECIALIST: Shaniqua Dumas us Jordi Almanza MD IMG FLUOROSCOPY PROCEDURES Final Result * US Abdomen Limited (02/15/2025 7:32 AM EDT) Anatomical Region Laterality Modality Body Ultrasound 02/15/2025 2:46 PM EDT Impressions 02/15/2025 2:59 PM EDT Impression: Stable 15 mm hypoechoic hepatic lesion being followed since 02/21/24, without MRI correlate, reassuring for a benign process. One-year follow-up ultrasound recommended. Telerad ONEL ([id number]) -------- FINAL REPORT -------- Dictated By: Adalgisa Sands Dictated Date: 02/15/2025 14:46 ET Assigned Physician: Adalgisa Sands Reviewed and Electronically Signed By: Adalgisa Sands Signed Date: 02/15/2025 14:59 ET Workstation ID: [id number] Transcribed By: Self Edit Transcribed Date: 02/15/2025 14:46 ET Narrative 02/15/2025 2:59 PM EDT History: Follow-up liver lesion. Comparison: 10/12/24, 02/21/24, outside abdominal MRI 09/22/24, CT abdomen 09/03/22 Findings: Real-time imaging of the abdomen, limited to the right upper quadrant, was performed. The hepatic echogenicity is moderately increased, with poor visualization of the granger of the peripheral portal venous vasculature, consistent with fatty infiltration and/or fibrosis. This is unchanged. Redemonstrated is a circumscribed round hypoechoic lesion in the peripheral right hepatic lobe, measuring 15 x 14 x 15 mm, without significant change. No internal vascularity is seen within the lesion by Doppler analysis. No new masses are identified. This lesion is not visualized on the recent MRI. The portal vein is patent and exhibits normal, hepatopedal flow. The gallbladder is surgically absent. The common duct is normal in caliber, measuring 4 mm at the level of the hepatic artery and portal vein. No ascites is seen in the right upper quadrant. A survey view of the right kidney is unremarkable. The pancreas is partially obscured by bowel gas shadowing; the visualized portions of the neck appear normal. Procedure Note Adalgisa Sands MD - 02/15/2025 History: Follow-up liver lesion. Comparison: 10/12/24, 02/21/24, outside abdominal MRI 09/22/24, CT [id number] Findings: Real-time imaging of the abdomen, limited to the right upper quadrant, wasperformed. The hepatic echogenicity is moderately increased, with poor visualizationof the granger of the peripheral portal venous vasculature, consistent withfatty infiltration and/or fibrosis. This is unchanged. Redemonstrated is a circumscribed round hypoechoic lesion in theperipheral right hepatic lobe, measuring 15 x 14 x 15 mm, withoutsignificant change. No internal vascularity is seen within the lesion byDoppler analysis. No new masses are identified. This lesion is notvisualized on the recent MRI. The portal vein is patent and exhibits normal, hepatopedal flow. The gallbladder is surgically absent. The common duct is normal incaliber, measuring 4 mm at the level of the hepatic artery and portalvein. No ascites is seen in the right upper quadrant. A survey view of the rightkidney is unremarkable. The pancreas is partially obscured by bowel gasshadowing; the visualized portions of the neck appear normal. IMPRESSION: Impression: Stable 15 mm hypoechoic hepatic lesion being followed since 02/21/24,without MRI correlate, reassuring for a benign process. One-year follow-upultrasound recommended. Telerad ONEL ([id number]) -------- FINAL REPORT -------- Dictated By: Adalgisa Sands Dictated Date: 02/15/2025 14:46 ET Assigned Physician: Adalgisa Sands Reviewed and Electronically Signed By: Adalgisa Sands Signed Date: 02/15/2025 14:59 ET Workstation ID: [id number] Transcribed By: Self Edit Transcribed Date: 02/15/2025 14:46 ET us Waldo Cirilo DO IMG US PROCEDURES Final Result * MG Mammo Digital Diagnostic bilat (08/25/2024 9:35 AM EST) Anatomical Region Laterality Modality Breast Bilateral Mammography Historical Provider MD WALTERS BI PROCEDURES Final R esult * Hepatitis C antibody (08/20/2024 2:45 PM EST) [facility] Hepatitis C Antibody Negative Negative LAB CHEMISTRY METHOD 08/20/2024 5:[address] [facility] Blood Venous blood specimen / Unknown Venipuncture / Unknown 08/20/2024 2:45 PM EST 08/20/2024 3:46 PM EST Germaine Robles CN LAB BLOOD ORDERABLES Final Re sult [facility] [address] [place] [address], * Cervical Cancer Screening: HPV (07/10/2023) [facility] Cervical Cancer Screening: HPV No interpreta tion,abstr acted Historical Provider HEALTH MAINTENANCE Final Result from Last 3 Months or Most Recently Relevant to Health Maintenance Insurance [employer] Care Teams Clinical Trial Associate Relationship Specialty Start Date End Date Jah Root [address] [place], [place] PCP - General 04/29/24
--- OUTSIDE RECORDS SUMMARY | 2025-05-05 10:34 | XMS_ITS | Encounter Summary ---
Author Organization [employer] Address [address] [place] [address] Care Team Providers Care Digital Campaign Manager Name Role Phone Jah Root MD Primary Care Prov ider Brynn Parmar MD Primary Care Provider [phone] Encounter Details Date Type Department Care Team (Late st Contact Info) Description 08/28/2024 Orders Only [facility] [address] [place], [place] [phone] Provider, MD Lalit Social History Tobacco Use [...] PM EDT Clinical Support [facility] [address] [place] [address] 07/12/2025 9:15 AM EST Office Visit [facility] [address] [place] [address] Brynn Parmar MD [address] [place] [address] documented as of this encounter Procedures Procedure [...] documented as of this encounter Care Teams Digital Campaign Manager Relationship Specialty Start Date End Date Jah Root MD [address] [place] [address] PCP - General Internal Medicine 01/26/20 05/04/25 Brynn Parmar MD [address] [place] [address] PCP - General Family Medicine 05/05/25 Raquel Camara Psychiatrist 09/09/19 Paige Therapist 05/05/25 Marilu Sheffield Consulting Physician Hematology 09/09/22 Waldo Kerr Consulting Physician Gastroenterology 07/10/24 documented as of this encounter
--- OUTSIDE RECORDS SUMMARY | 2025-05-05 10:34 | XMS_ITS | Encounter Summary ---
Author Organization [employer] Address [address] [facility] [address] [place] [address] Care Team Providers Care Door Tender Name Role Phone Jah Root MD Primary Care Prov ider Brynn Parmar MD Primary Care Provider [phone] Reason for Visit * Reason Onset Date Comments Nurse Triage 08/06/2023 Encounter Details Date Type Department Care Team (Late st Contact Info) Description 08/06/2023 Telephone [facility] MEDICINE [address] [place] [address] Jah Root MD [address] [place], [place] [phone] Nurse Triage Social History Tobacco Use Types Packs/Day Years Used Date Smoking Tobacco: Never Smokeless Tobacco: Never Alcohol Use Standard Drinks/Week Comments Never 0 (1 standard drink = 0.6 oz pur e alcohol) Depression Answer Date Recorded Patient Health Questionnaire-9 Score 10 10/22/2022 Housing Stability Answer Date Recorded What is your housing situation today? I have irineomichele shaffer 07/10/[address] you [...] at lat visit 07/26/23. Per pt did tile picker meclizine and took as instructed but [...] become worse. * Telephone Encounter - Alf Antunze - 08/06/2023 12:02 PM EST Symptom: Dizziness Outcome: Schedule an urgent appointment (within 4 hours) or talk to a nurse or provider soon Reason: Getting worse The caller accepted this outcome documented in this encounter Plan of Treatment Upcoming Encounters Date Type Department Care Team (Late st Contact Info) Description 05/11/2025 2:00 PM EDT Clinical Support [facility] MED [facility] PEDS [address] [place] [address] 07/12/2025 9:15 AM EST Office Visit [facility] [address] [place] [address] Brynn Parmar MD [address] [place] [address] documented as of this encounter Visit Diagnoses Not on filedocumented in this encounter Additional Health Concerns Assessment Noted Time PHQ-9 Depression Total Score: 10 023 2:28 PM EST documented as of this encounter Care Teams Door Tender Relationship Specialty Start Date End Date Jah Root MD [address] [place] [address] PCP - General Internal Medicine 01/26/20 05/04/25 Brynn Parmar MD [address] [place] [address] PCP - General Family Medicine 05/05/25 Raquel Camara Psychiatrist 09/09/19 Paige Therapist 05/05/25 Marilu Sheffield Consulting Physician Hematology 09/09/22 Waldo Kerr Consulting Physician Gastroenterology 07/10/24 documented as of this encounter
--- OUTSIDE RECORDS SUMMARY | 2025-05-05 10:34 | XMS_ITS | Encounter Summary ---
Author Organization [employer] Address [address] [facility] [address] [place] [address] Care Team Providers Care Priming Mixture Carrier Name Role Phone Jah Root MD Primary Care Prov ider Brynn Parmar MD Primary Care Provider [phone] Reason for Visit * Reason Onset Date Comments Results 03/10/2024 Encounter Details Date Type Department Care Team (Late st Contact Info) Description 03/10/2024 Telephone [facility] MEDICINE [address] [place] [address] Jah Root MD [address] [place], [place] [phone] Results Social History Tobacco Use Types Packs/Day [...] to ordering provider to review and advise [facility] Team Nurses. TC from pt requesting call back regarding Results. Type of results: Labs Date when done: Around 2 weeks ago Facility: [facility] Labs * Telephone Encounter - Miguel Davalos - 03/10/2024 10:15 AM EDT TC from pt requesting call back regarding Results. Type of results: Labs Date when done: Around 2 weeks ago Facility: [facility] Labs documented in this encounter Plan of Treatment Upcoming Encounters Date Type Department Care Team ([facility] st Contact Info) Description 05/11/2025 2:00 PM EDT Clinical Support [facility] MED & PEDS [address] [place] [address] 07/12/2025 9:15 AM EST Office Visit [facility] [address] [place] [address] Brynn Parmar MD [address] [place] [address] documented as of this encounter Visit Diagnoses Not on filedocumented in this encounter Additional Health Concerns Assessment Noted Time PHQ-9 Depression Total Score: 8 10/30/19 24 9:42 AM EST documented as of this encounter Care Teams Priming Mixture Carrier Relationship Specialty Start Date End Date Jah Root MD [address] [place] [address] PCP - General Internal Medicine 01/26/20 05/04/25 Brynn Parmar MD [address] [place] [address] PCP - General Family Medicine 05/05/25 Raquel Camara Psychiatrist 09/09/19 Paige Therapist 05/05/25 Marilu Sheffield Consulting Physician Hematology 09/09/22 Waldo Kerr Consulting Physician Gastroenterology 07/10/24 documented as of this encounter
--- OUTSIDE RECORDS SUMMARY | 2025-05-05 10:34 | XMS_ITS | Clinical Summary ---
Author Organization [employer] Address [address] [facility] 7[address] [place] [address] Care Team Providers Care Adjutant General Name Role Phone Brynn Parmar MD Primary Care Provider Allergies No known active allergies Medications clonazePAM (KlonoPIN) 0.5 MG tablet Take 1 tablet by mouth in the morning and 1 tablet in the evening. Active minoxidil (Loniten) 2.5 MG tabletIndicatio ns:Androgenetic alopecia Take 1 tablet (2.5 mg) by mouth in the morning. 30 tablet 11 10/01/19 24 Active ketoconazole (Nizoral) 2 % shampooIndicati ons:Androgeneti c alopecia Apply topically 2 (two) times a week. 120 mL 3 10/03/19 24 Active pantoprazole (ProtoNix) 40 MG EC tablet Take 1 tablet (40 mg) by mouth before breakfast. Do not crush, chew, or split. 90 tablet 3 11/23/19 24 Active famotidine (Pepcid) 20 MG tabletIndicatio ns:Gastroesopha geal reflux disease without esophagitis Take 1 tablet (20 mg) by mouth 2 times daily. 180 tablet 3 06/11/20 24 025 Active cholecalciferol (Vitamin D-3) 25 MCG (1000 UT) tablet Take 1 tablet (25 mcg) by mouth Once per day. 120 tablet 3 05/05/20 25 Active cholecalciferol (Vitamin D-3) 25 MCG (1000 UT) tablet Take 1 tablet by mouth 1 (one) time each day. 08/ 025 Discontinued(Re order (will not trigger notification to Pharmacy)) albuterol 108 (90 Base) MCG/ACT inhalerIndicati ons:Acute cough Inhale 2 puffs every 4 (four) hours if needed for wheezing. 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 Exercise intolerance 07/21/2024 Generalized body aches 07/21/2024 Hemorrhoids 07/21/2024 Ileus 07/21/2024 Odynophagia 07/21/2024 Palpitations 07/21/2024 Polyarthralgia 07/21/2024 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 Postprandial diarrhea 07/21/2024 Rash 07/21/2024 Lower abdominal pain 07/21/2024 RUQ pain 07/21/2024 Upper abdominal pain 07/21/2024 Urticaria 07/21/2024 Generalized weakness 07/21/2024 Mass of upper outer quadrant of left breast 07/10 Assessment & Plan (07/21/2024 6:24 PM EST): Deferred examination, refers feels a lump on her left breast at 3 o'clock, no nipple inversion or discharge, will order a mammogram Subclinical hypothyroidism 04/01/2024 Gastroesophageal reflux disease without [...] previously referred to ent, will place referall Acute right-sided low back pain without sciatica [...] total, feeling much better, follow up with ob-security intern History of gestational diabetes mellitus 022 Neck muscle spasm 08/17/2022 Assessment & Plan (08/17/2022 1:34 PM EST): Will start on cyclobenzaprine, rest, apply ice/heat Uterine leiomyoma 11/15/2020 Overview (07/21/2024): 11/10/2020 FINDINGS: [...] EDT): Will refer to dermatology for reevaluation. Migraine 07/21/2018 Mood disorder 07/21/2018 Assessment & Plan (07/21/2024 6:23 PM EST): Follwoed by psych for MDD/anxiety, follow up reccomendations Assessment & Plan (05/16/2023 1:31 PM EDT): Followed by psych, no suicidal/homicidal ideas Irritable bowel syndrome 07/21/2018 Resolved Problems Problem Noted Date Diagnosed Date Resolved Date Abdominal cramping 07/21/[address] scan, gastrointestinal tract 07/21/2024 05/05/2025 Abnormal MRI, pelvis 07/21/2024 025 Acute viral syndrome 07/21/2024 025 Generalized headaches 07/21/20242024 Iron deficiency 07/21/2024 05/05/2025 Neck pain 07/21/2024 05/05/2025 COVID-19 07/21/2024 05/05/2025 Gastritis 07/21/2024 05/05/2025 Gastroenteritis 07/21/2024 05/05/2025 GERD (gastroesophageal reflux disease) 07/21/2024 05/05/2025 Microcytic anemia 04/29/2024 05/05/2025 Missed period 05/16/2023 05/05/2025 Assessment & Plan (05/16/2023 1:30 PM EDT): Will place order for test Muscle pain 03/04/2023 05/05/2025 Assessment & Plan (03/04/2023 1:23 PM EDT): Chronic muscle pain, will renew cyclobenzaprine as needed, reinforced importance of stretching/exercise, told she can also try acupuncture. Follow up as needed COVID 08/17/2022 05/05/2025 Assessment & Plan (08/17/2022 1:33 PM EST): Patient was diagnosed 2 days ago when she visited er, refers symptoms started on 08/09/22, told to maintain well hydrated, rest and in case of worsening symptoms visit er Menorrhagia with irregular cycle 08/17/2022 05/05/2025 Assessment & Plan (08/17/2022 1:34 PM EST): Patient refers has been bleeding for the past month, she visited er 2 days ago hgb was 11.6, will place referal to ob-security intern, Anemia 08/03/2022 05/05/2025 Overview (07/21/2024): Hgb 10.5, Fe supplementation started Last Assessment & Plan: Patient sent for repeat Hgb today. Will request expedited referral to Hematology for iron infusion. Assessment & Plan (02/23/2025 1:36 PM EDT): Patient had prolongued episode of vaginal bleeding, now feels weak/tires and fatigue, will order new labs for guidance of therapy, if low on iron will consider hematology reevaluation as in the past oral replacement has caused gi side effects Alopecia areata 07/21/2018 05/05/2025 Encounters Date Type Department Care Team Description 05/05/2025 9:15 AM EDT Office Visit [facility] [address] [place] [address] Brynn Parmar MD Hiatal hernia (Primary Dx); Thalassemia trait; Encounter for immunization; Attention and concentration deficit; Gradual-onset memory impairment; Vitamin D deficiency; Overweight 05/05/2025 Travel 05/04/2025 Telephone [facility] [address] [place] [address] Brynn Parmar MD chart prep 04/28/2025 Patient Outreach [facility] [address] [place] [address] Jah Root MD Pre-visit Planning (Pre visit planning LVM ) 04/13/2025 Orders Only [facility] [address] [place] [address] Lalit Langley MD 03/23/2025 Orders Only [facility] [address] [place] [address] Jah Root MD Iron deficiency anemia due to chronic blood loss (Primary Dx) 03/22/2025 Results Follow-Up [facility] [address] [place] [address] Jah Root MD CBC auto differential, Iron And Total Iron Binding Capacity 02/23/2025 1:15 PM EDT Telemedicine [facility] [address] [place] [address] Jah Root MD Iron deficiency anemia due to chronic blood loss (Primary Dx); Dietary counseling; Exercise counseling 02/23/2025 Travel from Last 3 Months Immunizations Immunization Administration Dates Next Due DTP 07/10/1990, 6,04/09/1985,1984 HPV, Quadrivalent 06/29/2011,11/28/2007 Hep A, Adult 05/05/2025 Hep B, Adolescent or Pediatric 03/29/1997,1995,04/06/1996 Influenza injectable quadriv alent IIV4 with preservative 06/20/2016,05/30/2015 Influenza, Split (incl. huang fied surface antigen) 07/28/2012 MMR 07/10/1990,04/09/1986 OPV, Trivalent 08/09/1992, 6,04/09/1985,1984 Td (adult), 5 Lf tetanus tox oid, preservative free, adsorbed 03/29/1997 Tdap 07/21/2024,06/29/2011 Family History Medical History Relation Name Comments Deep vein thrombosis Father Arthritis Mother Coronary artery disease Mother Fibromyalgia Mother Hypertension Mother Thyroid disease Mother Relation Name Status Comments Father Mother Social History Tobacco Use Types Packs/Day [...] housing situation today? I have irineomichele shaffer 12/09/[address] you [...] 18 05/05/2025 8:55 AM EDT Oxygen Saturation 98% 12/09/2024 2:12 PM EDT Inhaled Oxygen Concentration - - Weight 75.2 kg (165 lb 12.8 oz) 05/05/2025 8:55 AM EDT Height 163 cm (5' 4.17 ) 05/05/2025 8:55 AM EDT Body Mass Index 28.31 05/05/2025 8:55 AM EDT Plan of Treatment Upcoming Encounters Date Type Department Care Team (Late st Contact Info) Description 05/11/2025 2:00 PM EDT Clinical Support [facility] [address] [place] [address] 07/12/2025 9:15 AM EST Office Visit [facility] [address] [place] [address] Brynn Parmar MD [address] [place] [address] Health Maintenance Due Date Last Done Comments Derm Melanoma Skin Check 06/06/1985 Family Planning (PISQ) 12/05/1999 HPV Vaccines (3 - 3-dose series) 09/21/2011 06/29/2011, 11/28/2007 Cervical Cancer Screening 04/19/2025 HPV/Cotest 04/19/2025 04/14/2020, 12/15/2018 Pap Smear 04/19/2025 04/14/2020, 12/15/2018 Influenza Vaccine (#1) 2025 6, 05/30/2015, 07/28/2012 COVID-19 Vaccine ( season) 2025 10/06/2021, 01/18/2021, 12/21/2020 Postponed from 05/10/2024 (Supply/Drug Shortage) Depression Monitoring 11/05/2025 05/05/2025, 025 Hepatitis A Vaccines (2 of 2 - Risk 2-dose series) 11/05/2025 05/05/2025 Alcohol/Substance Use Screening 12/09/2025 12/09/2024 SDOH Screening 12/09/2025 12/09/2024 Disability Screening 05/05/2026 05/05/2025 Tobacco Screening 05/05/2026 05/05/2025 Mammogram 08/25/2026 08/25/2024, 01/2024, 08/13/2024 DTaP/Tdap/Td Vaccines [...] Years) and At-Risk Patients (6 to 49) Years Aged Out No longer eligible based on patient's age to complete this topic RSV under 20 months Aged Out No longe r eligible based on patient's age to complete this topic Rotavirus Vaccines Aged Out No longer eligible based on patient's age to complete this topic Procedures Procedure Name Priority Date/Time Associated Diagnosis Comments XR BARIUM SWALLOW (ESOPHAGRAM) Routine 04/12/2025 8:48 AM EDT IRON AND TOTAL IRON BINDING CAPACITY Routine 03/01/2025 12:34 PM EDT Iron deficiency anemia due to chronic blood loss CBC WITH AUTO DIFFERENTIAL Routine 03/01/2025 12:34 PM EDT Iron deficiency anemia due to chronic blood loss BI US BREAST LIMITED LEFT Routine 08/13/2024 1:15 PM EST ZZZ HISTORICAL HEPATITIS C AB W/REFL TO HCV RNA, QN, PCR Routine 07/06/2021 3:02 PM EDT HIV 1/2 ANTIGEN/ANTIBODY, FOURTH GENERATION W/RFL Routine 07/06/2021 3:02 PM EDT HM PAP/HPV Routine 04/14/2020 12:00 AM EDT from Last 3 Months or Most Recently Relevant to Health Maintenance Results * XR BARIUM SWALLOW (ESOPHAGRAM) (04/12/2025 8:48 AM EDT) Anatomical Region Laterality Modality Chest Radiographic Yamileth ging us Historical Provider MD WALTERS XR PROCEDURES Final R esult * (ABNORMAL) CBC auto differential (03/01/2025 12:34 PM EDT) White Blood Count 10.4 4.8 - 10.8 X10*3/uL [facility] Red Blood Count 4.72 4.20 - 5.50 X10*6/uL [facility] Hemoglobin 12.1 12.0 - 16.0 g/dl [facility] Hematocrit 36.0(L) 37.0 - 47.0 % [facility] Mean Corpuscular Volume 76.3(L) 80.0 - 98.0 fL [facility] Mean Corpuscular Hemoglobin 25.6(L) 27.0 - 33.0 pg [facility] Mean Corpuscular HGB Conc 33.6 31.0 - 35.0 g/dl [facility] Red Cell Distribution Width 13.3 11.0 - 16.0 % [facility] Platelet Count 263 160 - 400 X10*3/uL [facility] Mean Platelet Volume 10.1 9.4 - 12.3 fL [facility] Neutrophils Percent Auto 70.1 45 - 73 % [facility] Imm Gran Pct Auto 0.6(H) 0.0 - 0.4 % [facility] Lymphocytes Percent Auto 23.3 20 - 40 % [facility] Monocytes Percent Auto 5.1 2 - 11 % [facility] Eosinophils Percent Auto 0.4 0 - 4 % [facility] Basophils Percent Auto 0.5 0 - 2 % [facility] NRBC Pct Auto 0.0 0.0 - 0.2 /100WBC [facility] Neutrophils Absolute Auto 7.3 2.0 - 8.3 x10*3/uL [facility] Imm Gran Abs Auto 0.06(H) 0.00 - 0.03 X10*3/uL [facility] Lymphocytes Absolute Auto 2.4 1.2 - 4.9 X10*3/uL [facility] Monocytes Absolute Auto 0.5 0.1 - 1.2 X10*3/uL [facility] Eosinophils Absolute Auto 0.0 0.0 - 0.4 X10*3/uL [facility] Basophils Absolute Auto 0.1 0.0 - 0.2 X10*3/uL [facility] NRBC Abs Auto 0.000 0.0 - 0.012 X10*3/uL [facility] Blood Venous blood specimen / Unknown 03/01/2025 12:34 PM EDT 03/01/2025 1:41 PM EDT Jah Dejesus MD LAB BLOOD ORDERABL ES Final Result [facility] [address] [place] [phone] * (ABNORMAL) Iron And Total Iron Binding Capacity (03/01/2025 12:34 PM EDT) Iron 34 30 - 160 mcg/dL [facility] Total Iron Binding Capacity 332 228 - 428 mcg/dL [facility] Percent Iron Saturation 10(L) 15 - 50 % [facility] Unsaturated Iron Binding 298 ug/dL [facility] Blood Venous blood specimen / Unknown 03/01/2025 12:34 PM EDT 03/01/2025 1:41 PM EDT Jah Dejesus MD LAB BLOOD ORDERABL ES Final Result [facility] [address] [place] [address] [phone] * BI US Breast Limited Left (08/13/2024 1:15 PM EST) Anatomical Region Laterality Modality Breast Left Ultrasound 08/13/2024 1:15 PM EST Narrative 08/13/2024 2:50 PM EST [address] [place] [address] Ultrasound Report Signed Patient: Radha Rodarte MR#: [id number] 62 : 1985 Acct:[id number] Age/Sex: 38 / F ADM Date: 08/13/24 Loc: HO.MAMMO Attending Dr: Jah Dejesus MD Ordering Physician: Jah Root MD Date of Service: 08/13/24 Procedure(s): US breast LT limited mamm only Accession Number(s): [id number] cc: Jah Root MD EXAMINATION: MM DIAGNOSTIC [...] 08/13/24 1447 DD/ 1315 TD/TT: 08/13/24 1430 [employer]visor [employer]: Procedure Note Donotuseinterpreter, Image - 08/13/2024 [facility] [address] [place], [place] [address] Ultrasound Report Signed Patient: Radha Rodarte DMR#: [id number] 62 : 1985Acct:[id number] Age/Sex: 38 / FADM Date: 08/13/24 Loc: HO.MAMMO Attending Dr: Jah Dejesus MD Ordering Physician: Jah Root MD Date of Service: 08/13/24 Procedure(s): US breast LT limited mamm only Accession Number(s): [id number] cc: Jah Root MD EXAMINATION: MM DIAGNOSTIC [...] 08/13/24 1447 DD/ 1315 TD/TT: 08/13/24 1430 Supervisor [employer]: Jah Dejesus MD [facility] [place] PROCEDURES Edited Result - Final * HEPATITIS C AB W/REFL TO HCV RNA, QN, PCR (07/06/2021 3:02 PM EDT) HEPATITIS C ANTIBODY NON-REACT IGNACIO NON-REACT IGNACIO [facility] INDEX 0.02 <1.00 [facility] Comment: HCV antibody was non-reactive. There is no laboratory evidence of HCV infection. In most cases, no further action is required. However, if recent HCV exposure is suspected, a test for HCV RNA (test code 80917) is suggested. For additional information please refer to http://education.Travelata.Digital Cadd[employer]/faq/YPJ67b1 (This link is being provided for informational/ educational purposes only.) 07/06/2021 3:02 PM EDT Jah Dejesus MD HISTORICAL/NON ORD ERABLE LABS Final Result [facility] [address] * HIV 1/2 ANTIGEN/ANTIBODY,FOURTH GENERATION W/RFL (07/06/2021 3:02 PM EDT) HIV-1/2 ANTIGEN AND ANTIBODIES, 4TH GENERATION W/ REFLEX NON-REACT IGNACIO NON-REACT IGNACIO [facility] Comment: HIV-1 antigen and HIV-1/HIV-2 antibodies were not detected. There is no laboratory evidence of HIV infection. PLEASE NOTE: This information has been disclosed to you from records whose confidentiality may be protected by state law. If your state requires such protection, then the state law prohibits you from making any further disclosure of the information without the specific written consent of the person to whom it pertains, or as otherwise permitted by law. A general authorization for the release of medical or other information is NOT sufficient for this purpose. For additional information please refer to http://education.[employer]/faq/OEX930 (This link is being provided for informational/ educational purposes only.) The performance of this assay has not been clinically validated in patients less than 2 years old. 07/06/2021 3:02 PM EDT Jah Dejesus MD LAB BLOOD ORDERABL ES Final Result Performing Organization Address City/State/[facility] Co de Phone Number [facility] [address] * PAP/HPV (04/14/2020 12:00 AM EDT) Pap Smear 1. NILM 1. NILM HPV Undetected Undetected, Indeterminate , Quantitative, Not Detected Historical Provider HEALTH MAINTENANCE Edited Result - Final from Last 3 Months or Most Recently Relevant to Health Maintenance Insurance [facility] [employer] 3 Care Teams Adjutant General Relationship Specialty Start Date End Date Brynn Parmar MD [address] [place] [phone] PCP - General Family Medicine 05/05/25 Raquel Camara Psychiatrist 09/09/19 Paige Therapist 05/05/25 Marilu Sheffield Consulting Physician Hematology 09/09/22 Waldo Kerr Consulting Physician Gastroenterology 07/10/24
--- OUTSIDE RECORDS SUMMARY | 2025-05-05 10:34 | XMS_ITS | Encounter Summary ---
Author Organization [employer] Address [address] [facility] [address] [place] [address] Care Team Providers Care Instrument Repair Technician Name Role Phone Jah Root MD Primary Care Prov ider Brynn Parmar MD Primary Care Provider [phone] Encounter Details Date Type Department Care Team (Late st Contact Info) Description 11/06/2024 Orders Only [facility] [address] [place] [address] Provider, MD Lalit Social History Tobacco Use [...] Description 05/11/2025 2:00 PM EDT Clinical Support [facility] [address] [place] [address] 07/12/2025 9:15 AM EST Office Visit [facility] [address] [place] [address] Brynn Parmar MD [address] [place] [address] documented as of this encounter Procedures Procedure Name Priority Date/Time Associated Diagnosis Comments MRI ABDOMEN WO CONTRAST Routine 09/22/2024 1:22 PM EST documented in this encounter Results * MRI ABDOMEN WO CONTRAST (09/22/2024 1:22 PM EST) Anatomical Region Laterality Modality Magnetic Resonan ce Historical Provider MD WALTERS MRI PROCEDURES Final Result documented in this encounter Visit Diagnoses Not on filedocumented in this encounter Additional Health Concerns Assessment Noted Time PHQ-9 Depression Total Score: 8 10/30/19 24 9:42 AM EST documented as of this encounter Care Teams Instrument Repair Technician Relationship Specialty Start Date End Date Jah Root MD [address] [place] [address] PCP - General Internal Medicine 01/26/20 05/04/25 Brynn Parmar MD [address] [place] [address] [place] [address] PCP - General Family Medicine 05/05/25 Raquel Camara Psychiatrist 09/09/19 Paige Therapist 05/05/25 Marilu Sheffield Consulting Physician Hematology 09/09/22 Waldo Kerr Consulting Physician Gastroenterology 07/10/24 documented as of this encounter
--- OUTSIDE RECORDS SUMMARY | 2025-05-05 10:34 | XMS_ITS | Encounter Summary ---
Author Organization [employer] Address [address] [facility] 7[address] [place] [address] Care Team Providers Care Window Shade Installer Name Role Phone Jah Root MD Primary Care Prov ider Brynn Parmar MD Primary Care Provider [phone] Reason for Visit * Reason Onset Date Comments Results 09/10/2023 Encounter Details Date Type Department Care Team ([facility] st Contact Info) Description 09/10/2023 Telephone [facility] [address] [place], [place] [phone] Jah Root MD [address] [place], [place] [phone] Results Social History Tobacco Use Types Packs/Day [...] results: Labs Date when done: 08/26/23 Facility: [facility] documented in this encounter Plan of Treatment Upcoming Encounters Date Type Department Care Team ([facility] st Contact Info) Description 05/11/2025 2:00 PM EDT Clinical Support [facility] [address] [place] [address] 07/12/2025 9:15 AM EST Office Visit [facility] [address] [place] [address] Brynn Parmar MD [address] [place] [address] documented as of this encounter Visit Diagnoses Not on filedocumented in this encounter Additional Health Concerns Assessment Noted Time PHQ-9 Depression Total Score: 10 023 2:28 PM EST documented as of this encounter Care Teams Window Shade Installer Relationship Specialty Start Date End Date Jah Root MD [address] [place] [address] PCP - General Internal Medicine 01/26/20 05/04/25 Brynn Parmar MD [address] [place] [address] PCP - General Family Medicine 05/05/25 Raquel Camara Psychiatrist 09/09/19 Paige Therapist 05/05/25 Marilu Sheffield Consulting Physician Hematology 09/09/22 Waldo Kerr Consulting Physician Gastroenterology 07/10/24 documented as of this encounter
--- OUTSIDE RECORDS SUMMARY | 2025-05-05 10:34 | XMS_ITS | Encounter Summary ---
Author Organization [facility] Address [address] [place] [address] Phone Care Team Providers Care Nutter Up Name Role Phone Jah Root MD Primary Care Prov ider Encounter Details Date Type Department Care Team (Late st Contact Info) Description 04/30/2024 Procedure Pass [facility] Endoscopy Department [address] [place] [phone] Social History Tobacco Use Types Packs/Day Years [...] on file Sexual Orientation Not on file documented as of this encounter Plan of Treatment Not on file documented as of this encounter Visit Diagnoses Not on filedocumented in this encounter Care Teams Nutter Up Relationship Specialty Start Date End Date Jah Root MD [address] [place] [address] PCP - General Internal Medicine 02/08/22 documented as of this encounter Additional Source Comments The information contained in this document represents components of the legal health record. It is not the complete legal health record.[facility]
--- OUTSIDE RECORDS SUMMARY | 2025-05-05 10:34 | XMS_ITS | Clinical Summary ---
Author Organization [facility] Address [address] [place] [address] Care Team Providers Care Materials Buyer Name Role Phone Jah Cobian MD Primary Care Provider [phone] Allergies No known active allergies Medications Medication [...] 07/10/1990, Additional history exists Influenza Vaccine (#1) 2025 06/20/2016, 2014 Hepatitis B Vaccines Completed 03/29/1997, 06/02/1996, 04/06/1996 Pneumococcal Vaccine Aged Out No long er eligible based on patient's age to complete this topic RSV Ped < 20 months Aged Out No longe r eligible based on patient's age to complete this topic Care Teams Materials Buyer Relationship Specialty Start Date End Date Jah Cobian MD [address] [place] [phone] PCP - General Internal Medicine 04/29/24
[2025-05-05 14:45] LABS: MANUAL DIFF FLAG NO
[2025-05-05 14:49] LABS: Hematocrit 37.8 % (37.0-47.0); Hemoglobin 12.4 g/dl (12.0-16.0); Imm Gran Abs Auto 0.03 X10*3/uL (0.00-0.03); Imm Gran Pct Auto 0.4 % (0.0-0.4); Lymphocytes Absolute Auto 2.2 X10*3/uL (1.2-4.9); Mean Corpuscular HGB Conc 32.8 g/dl (31.0-35.0); Mean Corpuscular Hemoglobin 25.5 pg (27.0-33.0); Mean Corpuscular Volume 77.8 fL (80.0-98.0); NRBC Abs Auto 0.000 X10*3/uL (0.0-0.012); NRBC Pct Auto 0.0 /100WBC (0.0-0.2); Platelet Count 275 X10*3/uL (160-400); Red Blood Count 4.86 X10*6/uL (4.20-5.50); White Blood Count 8.2 X10*3/uL (4.8-10.8)
[2025-05-05 15:19] LABS: Alanine Aminotransferase 17 U/L (0-31); Albumin Level 4.6 g/dL (3.5-5.0); Alkaline Phosphatase 85 U/L (39-117); Anion Gap 12 (12-20); Aspartate Amino Transferase 42 U/L (5-31); Blood Urea Nitrogen 8 mg/dL (9-16); Calcium 9.4 mg/dL (8.4-10.2); Carbon Dioxide 26 mmol/L (22-29); Chloride 105 mmol/L (96-108); Cholesterol 160 mg/dL (<200); Estimated Glomerular Filt Rate > 60; HDL Cholesterol 36 mg/dL (>40); Potassium 3.9 mmol/L (3.3-5.1); Sodium 139 mmol/L (135-145); Total Protein 7.9 g/dL (6.5-8.0); Triglycerides 291 mg/dL (<150)
[2025-05-05 15:38] LABS: Folate 6.2 ng/mL (> or = 4.0); Vitamin B12 268 pg/mL (200-900)
[2025-05-06 04:20] LABS: HIV Num 1 0.06 S/CO (0.00-0.99)
[2025-05-06 10:52] LABS: Lyme Abs Screen <0.90 index
== END 2025-05-05 09:53 | disposition home or self-care (01) ==
LOC: HO.CHCLDS 09:52
PROVIDERS: Visit Provider Family Medicine
DX: Z01.84 Encounter for antibody response examination (principal); M75.42 Impingement syndrome of left shoulder; R41.3 Other amnesia; E66.3 Overweight; E55.9 Vitamin D deficiency, unspecified; Z68.29 Body mass index [BMI] 29.0-29.9, adult; Z11.3 Encounter for screening for infections with a predominantly sexual mode of transmission; Z79.899 Other long term (current) drug therapy
CPT/HCPCS: 36415; 80053; 80061; 82306; 82607; 82746; 85025; 86592; 86617; 86618; 87389; 99202

== ENCOUNTER 2025-05-05 13:30 | Outpatient (AMB) | payer OTHER, SELFPAY ==
--- NOTE | 2025-05-05 13:39 | A.OFFVIS_ITS ---
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 Patient was referred by [facility] 01/06/25. Patient was seen at [facility] 12/04/24 due to a work related accident where she hit her head/shoulder. At today's visit patient's son states that she has not tried physical therapy or injections, but she has been doing at home exercises. Patient's son states that the shoulder pain does not radiate but feels heavy , no numbness or tingling. Patient's son states that she would like to discuss what would be best for her to try, either physical therapy or injections. Know: No HX: No Lubrication Servicer Required: Yes Lubrication Servicer Services: Lubrication Servicer Offered & Declined Lubrication Servicer Name: Henry- Son Allergies No Known Allergies Allergy (Verified 05/05/25 13:44) Medication List - Last Reconciled 05/05/25 by Brandon Reynolds MD acetaminophen (Tylenol Extra Strength) 1,000 mg (2 x 500 mg) PO QID PRN albuterol sulfate 90 mcg/actuation (Ventolin HFA) 2 puffs inhalation Q4H PRN clonazepam 0.5 mg PO DAILY dexlansoprazole (Dexilant) 30 mg PO .daily 90 days famotidine (Pepcid) 20 mg PO BID 10 days fluvoxamine 50 mg PO BEDTIME gabapentin 100 mg PO TID meclizine (Dramamine Less Drowsy) 25 mg PO TID PRN sucralfate (Carafate) 10 mL PO QID 90 days [facility] Medical History (Updated 05/05/25 @ 14:12 by Brandon Reynolds MD) Post-cholecystectomy syndrome Hemorrhoids with complication Dysphagia Candidiasis of mouth and esophagus Odynophagia Surgical History History of laparoscopic cholecystectomy (02/28/22) Hx of laparoscopy History of tonsillectomy History of esophagogastroduodenoscopy (EGD) Hx of colonoscopy Family History Father CVD (cardiovascular disease) Colon polyps Hypercholesteremia Diabetes Mother Thyroid condition CVD (cardiovascular disease) Fibromyalgia Heart problem Hypertension Sister HIV (human immunodeficiency virus infection) Brother No problems noted. Son No problems noted. Son No problems noted. 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 Physical Exam Vital Signs: BMI result Body Mass Index 29.2 Const Other: Well-nourished well-developed very friendly female awake alert and oriented x3 in no acute distress Extrem Other: Left shoulder examination shows slightly decreased range of motion when compared to her right shoulder, 5/5 strength with supraspinatus testing, positive impingement signs, no instability Results Reviewed Results Reviewed: MRI of the patient's left shoulder shows mild acromioclavicular joint narrowing, a type 2 acromion, signal change within the supraspinatus tendon most likely due to rotator cuff tendinosis Assessment & Plan Assessment & Plan (1) Impingement syndrome of left shoulder: Code(s): M75.42 - Impingement syndrome of left shoulder Category: Medical Plan Ms. Rodarte presents with left shoulder pain due to impingement syndrome. I had a lengthy discussion with the patient regarding the treatment options. We will hold off on a cortisone injection for now. I did give her a prescription to go to formal physical therapy. I also gave her a prescription for a Medrol Dosepak. She will contact me prior to her follow-up appointment in 2 months should any questions or concerns arise. Feel free to call me at any time should questions regarding her orthopedic management arise. Thank you very much for asking me to see this very friendly patient. I spent 21 minutes in reviewing the patient's records and imaging studies, seeing the patient and documenting in the medical record. Orders: Orders PT Evaluation and Treatment 05/06/25 M75.42 - Impingement syndrome of left shoulder Medications: New methylprednisolone (Medrol (Mikal)) PO PER PKG DIR 21 ea 0RF Coding Level of Care Code New Pt Level 3 (19953) Complex EM visit Add On G2211 Diagnoses Impingement syndrome of left shoulder M75.42
[2025-05-05 13:44] VITALS: BMI 29.2
== END 2025-05-05 14:09 | disposition home or self-care (01) ==
LOC: HO.HOS 13:31
PROVIDERS: PCP Internal Medicine; Visit Provider Orthopaedic Surgery
DX: M75.42 Impingement syndrome of left shoulder (principal)
CPT/HCPCS: 99203

== ENCOUNTER 2025-07-12 09:50 | Outpatient (REF) | payer OTHER, SELFPAY ==
--- OUTSIDE RECORDS SUMMARY | 2025-07-12 09:15 | XMS_ITS | Encounter Summary ---
Author Organization [employer] Address [address] [place] [address] [address] [place] [address] Care Team Providers Care Pullman Clerk Name Role Phone Brynn Parmar MD Primary Care Provider [phone] Reason for Referral * Imaging (Routine) - Pending Review Specialty Diagnoses / Procedures Referred By Contac t Referred To Contact Radiology Diagnoses Memory deficit Procedures MR Brain w/o Contrast Brynn Parmar MD [address] [place] [address] Phone: tel: fax: Referral ID Status Reason Start Date Expiration Date V isits Requested Visits Authorized [id number] Pending Review 07/12/2025 07/12/2026 1 1 * Consultation (Routine) - Pending Review Specialty Diagnoses / Procedures Referred By Contchristian t Referred To Contact Obstetrics and Gynecology Diagnoses Abnormal uterine bleeding Brynn Parmar MD [address] [place] [address] Phone: tel: fax: Referral ID Status Reason Start Date Expiration Date Visits Requested Visits Authorized [id number] Pending Review Specialty Services Required 07/12/2025 07/12/2026 1 1 Reason for Visit * Reason Comments Follow-up Encounter Details Date Type Department Care Team ([facility] Contact Info) Description 07/12/2025 9:15 AM EST Office Visit [facility] MED & PEDS [address] [place] [address] Brynn Parmar MD [address] [place] [address] Abnormal uterine bleeding (Primary Dx); Anemia, unspecified type; Transaminitis; Memory deficit; Immunizations incomplete Social History Tobacco Use Types Packs/Day Years [...] Sign Reading Time Taken Comments Blood Pressure 130/80 07/12/2025 9:18 AM EST Pulse 76 07/12/2025 9:18 AM EST Temperature 37.1 C (98.8 F) 07/12/2025 9:18 AM EST Respiratory Rate 20 07/12/2025 9:18 AM EST Oxygen Saturation 98% 07/12/2025 9:18 AM EST Inhaled Oxygen Concentration - - Weight 76.2 kg (168 lb) 07/12/2025 9:18 AM EST Height 160 cm (5' 3 ) 07/12/2025 9:18 AM EST Body Mass Index 29.76 07/12/2025 9:18 AM EST documented in this encounter Progress Notes * Brynn Parmar MD - 07/12/2025 9:15 AM EST Subjective Patient ID: Radha Rodarte is a 39 y.o. female who presents for Follow-up. Radha Carrasco is a 39-year-old female with a history of endometriosis and abnormal uterine bleedingpresenting for follow-up of prolonged menstrual bleeding. She reports having her menstruation for 1month and 3 days, describing it as abundant bleeding that has been ongoing for 6 weeks. She is currently taking control pills at the same time every day to help stop the abundant menstruation. She has a history of endometriosis and was scheduled for surgery but decided not to proceed at that time. She is requesting a referral to another continuous crusher operator for treatment as her current provider hasno available appointments until November for a Pap smear. The patient reports associated symptoms of dizziness and heart palpitations, stating my heart is very agitated. She has a history of fibromas that were previously removed. She mentions experiencinganxiety and notes that her hair was affected during previous treatment episodes. The patient is currently taking Luvox, a psychiatric medication prescribed by psychiatrist Raquel Lakhani, with no recent changes to her psychiatric medications. She recently completed a 6-day course of 4 milligrams of steroids for hand pain. She reports taking iron supplements intravenously because oral iron pills cause her stomach upset and she does not tolerate them well. Regarding other health concerns, the patient reports memory problems and mentions having depression. She expresses concerns about her body weight and fat distribution, stating she tries to eat to gain more fat in certain areas of her body but remains the same despite her efforts. She reports exercising regularly but finds it difficult to achieve her desired body composition goals. Medical History - Depression - Endometriosis - Thalassemia - History of fibroma, previously removed - History of iron deficiency - History of abnormal uterine bleeding - Memory problems Surgical History - Fibroma removal Medications and Supplements - Luvox prescribed by psychiatrist Raquel Lakhani - control pill - Takes daily at the same time, helps stop abundant menstruation - Iron supplements - Iron was given intravenously because oral pills cause stomach upset and are not tolerated Social History - Exercise: Currently exercising regularly, attends gym for muscle building - Diet: Attempting to gain weight and increase body fat in specific areas through dietary changes Immunizations - Influenza: Patient declined when offered - COVID-19: Patient declined when offered - HPV: Patient reports this is the last dose needed, sent to pharmacy Review of Systems General: Positive for dizziness. Cardiovascular: Positive for heart palpitations. Genitourinary: Positive for prolonged menstrual bleeding (6 weeks duration, heavy flow). Neurological: Positive for memory problems. Psychiatric: Positive for anxiety. Review of Systems Objective BP 130/80 Pulse 76 Temp 98.8 ??F (37.1 ??C) (Oral) Resp 20 Ht 5' 3 (1.6 m) Wt 168 lb (76.2 kg) SpO2 98% BMI 29.76 kg/m?? Physical Exam Constitutional: General: She is not in acute distress. Appearance: She is not ill-appearing. HENT: Head: Normocephalic and atraumatic. Nose: No congestion. Pulmonary: Effort: Pulmonary effort is normal. No respiratory distress. Breath sounds: Normal breath sounds. Musculoskeletal: Cervical back: Normal range of motion. Neurological: General: No focal deficit present. Mental Status: She is alert. Psychiatric: Mood and Affect: Mood normal. Assessment/Plan Problem List Items Addressed This Visit Abnormal uterine bleeding - Primary Relevant Medications norethindrone (Aygestin) 5 MG tablet medroxyPROGESTERone (Provera) 10 MG tablet Other Relevant Orders Referral to Obstetrics / Gynecology CBC auto differential TSH W/Reflex to FT4 Prothrombin Time-INR Other Visit Diagnoses Anemia, unspecified type Relevant Orders Ferritin Iron And Total Iron Binding Capacity Transaminitis Relevant Orders Hepatic Function Panel Memory deficit Relevant Medications fluvoxaMINE (Luvox) 50 MG tablet gabapentin (Neurontin) 100 MG capsule Other Relevant Orders MR Brain w/o Contrast Immunizations incomplete Relevant Medications HPV 9-valent (Gardasil-9) suspension prefilled syringe vaccine prefilled syringe Radha Carrasco is a 39-year-old female with a history of endometriosis and abnormal uterine bleedingpresenting with prolonged menstrual bleeding for 6 weeks, memory problems, and elevated triglycerides. Abnormal uterine bleeding Assessment: Patient has been experiencing heavy menstrual bleeding for 6 weeks in the setting of known endometriosis and history of fibroma removal. Currently taking control pills daily at the same time to help control bleeding, but bleeding persists. Patient reports associated symptoms of dizziness and heart palpitations, likely secondary to blood loss. Needs evaluation for anemia given prolonged heavy bleeding. Plan: - Medroxyprogesterone 20 mg three times daily for 7 days - Alternative option: 3 pills daily for 7 days to stop bleeding if medroxyprogesterone unavailable - Laboratory studies to check for anemia - Pap smear scheduled for next week - New gynecology referral for endometriosis management and surgical evaluation - Follow-up in 3 months for routine care Memory problems Assessment: Patient has documented memory issues with MoCA score of 13 out of 30, indicating cognitive impairment. She has history of depression which can affect cognitive test results. Previous headCT scan within the past year was normal without masses or abnormalities. Requires further neurological evaluation to determine if her memory problems are organic or related to depression. Plan: - MRI of brain prior to neurology referral - Neurology referral for memory evaluation - Patient advised to take anxiety medication before MRI due to claustrophobia concerns Thalassemia Assessment: Patient has known thalassemia which explains the presence of small red blood cells noted on laboratory studies. She has history of iron deficiency 4 months ago and previously required intravenous iron due to intolerance of oral iron supplements. Plan: - Check iron levels - Monitor for anemia given current bleeding Elevated triglycerides Assessment: Patient has elevated triglycerides, though improved from previous levels. Cholesterol levels are acceptable. Liver enzymes show mild elevation of transaminases but overall liver function is stable. Plan: - Dietary modifications: reduce intake of bread, pasta, and rice - Consider natural supplements such as omega-3 or krill oil - Recheck lipid panel in 6 months - Liver function monitoring HPV vaccination series Assessment: Patient requires completion of HPV vaccination series with final dose needed. Plan: - HPV vaccine sent to [facility] pharmacy on documented in this encounter Plan of Treatment Upcoming Encounters Date Type Department Care Team (Late st Contact Info) Description 07/20/2025 9:40 AM EST Procedure Visit [facility] [address] [place] [address] Brynn Parmar MD [address] [place] [address] Scheduled Orders Name Type Priority Associated Diagnoses Orde r Schedule CBC auto differential Lab Routine Abnormal uterine bleeding Expected: 07/12/2025 (Approximate), Expires: 07/12/2026 TSH W/Reflex to FT4 Lab Routine Abnormal uterine bleeding Expected: 07/12/2025 (Approximate), Expires: 07/12/2026 Prothrombin Time-INR Lab Routine Abnormal uterine bleeding Expected: 07/12/2025, Expires: 07/12/2026 Ferritin Lab Routine Anemia, unspecified type Expected: 07/12/2025 (Approximate), Expires: 07/12/2026 Iron And Total Iron Binding Capacity Lab Routine Anemia, unspecified type Expected: 07/12/2025, Expires: 07/12/2026 Hepatic Function Panel Lab Routine Transaminitis Expected: 07/12/2025 (Approximate), Expires: 07/12/2026 MR Brain w/o Contrast Imaging Routine Memory deficit Expected: 07/12/2025, Expires: 07/12/2026 Scheduled Referrals Name Type Priority Associated Diagnoses Order Schedule Referral to Obstetrics / Gynecology Outpatient Referral Routine Abnormal uterine bleeding Expected: 07/12/2025 (Approximate), Expires: 07/12/2026 documented as of this encounter Visit Diagnoses Diagnosis Abnormal uterine bleeding- Primary Unspecified disorder of menstruation and other abnormal bleeding from female genital tract Anemia, unspecified type Transaminitis Nonspecific elevation of levels of transaminase or lactic acid dehydrogenase (LDH) Memory deficit Memory loss Immunizations incomplete documented in this encounter Additional Health Concerns Assessment Noted Time PHQ-9 Depression Total Score: 15 05/05/ 025 8:58 AM EDT documented as of this encounter Care Teams Pullman Clerk Relationship Specialty Start Date End Date Brynn Parmar MD [address] [place] [address] PCP - General Family Medicine 05/05/25 Raquel Santos Psychiatrist Psychiatry 09/09/19 Paige Therapist 05/05/25 Marilu Sheffield Consulting Physician Hematology 09/09/22 Waldo Kerr Consulting Physician Gastroenterology 07/10/24 documented as of this encounter
--- OUTSIDE RECORDS SUMMARY | 2025-07-12 11:27 | XMS_ITS | Encounter Summary ---
Author Organization [employer] Address [address] [facility] [address]t [place] [address] Care Team Providers Care Performance Architect Name Role Phone Jah Root MD Primary Care Prov ider Brynn Parmar MD Primary Care Provider [phone] Encounter Details Date Type Department Care Team (Late st Contact Info) Description 11/06/2024 Orders Only [facility] [address] [place] [address] Provider, MD Lalit Social History Tobacco Use [...] Description 07/20/2025 9:40 AM EST Procedure Visit [facility] MED [facility] PEDS [address] [place] [address] Brynn Parmar MD [address] [place] [address] documented as of this encounter Procedures Procedure [...] documented as of this encounter Care Teams Performance Architect Relationship Specialty Start Date End Date Jah Root MD [address] [place] [address] PCP - General Internal Medicine 01/26/20 05/04/25 Brynn Parmar MD [address] [place] [address] PCP - General Family Medicine 05/05/25 Rauqel Santos Psychiatrist Psychiatry 09/09/19 Paige Therapist 05/05/25 Marilu Sheffield Consulting Physician Hematology 09/09/22 Waldo Kerr Consulting Physician Gastroenterology 07/10/24 documented as of this encounter
--- OUTSIDE RECORDS SUMMARY | 2025-07-12 11:27 | XMS_ITS | Encounter Summary ---
Author Organization [employer] Address [address] [place] [address] Care Team Providers Care Insole Presser Name Role Phone Jah Root MD Primary Care Prov ider Brynn Parmar MD Primary Care Provider [phone] Encounter Details Date Type Department Care Team (Late st Contact Info) Description 04/13/2025 Orders Only [facility] MED & PEDS [address] [place], [place] [phone] Provider, MD Lalit Social History Tobacco Use [...] Upcoming Encounters Date Type Department Care Team ([facility] st Contact Info) Description 07/20/2025 9:40 AM EST Procedure Visit [facility] MED [facility] PEDS [address] [place] [address] Brynn Parmar MD [address] [place] [address] documented as of this encounter Procedures Procedure Name Priority Date/Time Associated Diagnosis Comments XR BARIUM SWALLOW (ESOPHAGRAM) Routine 04/12/2025 8:48 AM EDT documented in this encounter Results * XR BARIUM SWALLOW (ESOPHAGRAM) (04/12/2025 8:48 AM EDT) Anatomical Region Laterality Modality Chest Radiographic Yamileth ging Historical Provider MD WALTERS XR PROCEDURES Final R esult documented in this encounter Visit Diagnoses Not on filedocumented in this encounter Additional Health Concerns Assessment Noted Time PHQ-9 Depression Total Score: 9 02/24/20 25 1:16 PM EDT documented as of this encounter Care Teams Insole Presser Relationship Specialty Start Date End Date Jah Root MD [address] [place] [address] PCP - General Internal Medicine 01/26/20 05/04/25 Brynn Parmar MD [address] [place] [address] PCP - General Family Medicine 05/05/25 Raquel Santos Psychiatrist Psychiatry 09/09/19 Paige Therapist 05/05/25 Marilu Sheffield Consulting Physician Hematology 09/09/22 Waldo Kerr Consulting Physician Gastroenterology 07/10/24 documented as of this encounter
--- OUTSIDE RECORDS SUMMARY | 2025-07-12 11:27 | XMS_ITS | Encounter Summary ---
Author Organization [employer] Address [address] [place] [address] [address] [place] [address] Care Team Providers Care Tick Sewer Name Role Phone Brynn Parmar MD Primary Care Provider [phone] Reason for Visit * Reason Comments Med Change Request Encounter Details Date Type Department Care Team ([facility] st Contact Info) Description 07/12/2025 Refill [facility] MED & PEDS [address] [place], [place] [phone] Brynn Parmar MD [address] [place], [place] [phone] Social History Tobacco Use Types Packs/Day Years [...] Description 07/20/2025 9:40 AM EST Procedure Visit [facility] PEDS [address] [place] [address] Brynn Parmar MD [address] [place] [address] documented as of this encounter Visit Diagnoses Not on filedocumented in this encounter Additional Health Concerns Assessment Noted Time PHQ-9 Depression Total Score: 15 025 8:58 AM EDT documented as of this encounter Care Teams Tick Sewer Relationship Specialty Start Date End Date Brynn Parmar MD [address] [place] [address] PCP - General Family Medicine 05/05/25 Raquel Santos Psychiatrist Psychiatry 09/09/19 Paige Therapist 05/05/25 Marilu Sheffield Consulting Physician Hematology 09/09/22 Waldo Kerr Consulting Physician Gastroenterology 07/10/24 documented as of this encounter
--- OUTSIDE RECORDS SUMMARY | 2025-07-12 11:27 | XMS_ITS | Encounter Summary ---
Author Organization [employer] Address [address] [facility] 7t [place] [address] Care Team Providers Care Art Critic Name Role Phone Jah Root MD Primary Care Prov ider Brynn Parmar MD Primary Care Provider Reason for Visit * Reason Onset Date Comments Change PCP 10/28/2024 Encounter Details Date Type Department Care Team ([facility] st Contact Info) Description 10/28/2024 Telephone [facility] MED & PEDS [address] [place], [place] [phone] Jah Root MD [address] [place], [place] [phone] Change PCP Social History Tobacco Use Types [...] and results were sent to PCP from [facility] to review next steps and has not heard anything. Pt states feels like she needs aprovider who will be more responsive and available. Pt prefers to stay at the [facility] location. Pt infor med of limited availability [...] Description 07/20/2025 9:40 AM EST Procedure Visit [facility] MED & PEDS [address] [place] [address] Brynn Parmar MD [address] [place] [address] documented as of this encounter Visit Diagnoses Not on filedocumented in this encounter Additional Health Concerns Assessment Noted Time PHQ-9 Depression Total Score: 8 10/30/19 24 9:42 AM EST documented as of this encounter Care Teams Art Critic Relationship Specialty Start Date End Date Jah Root MD [address] [place] [address] PCP - General Internal Medicine 01/26/20 05/04/25 Brynn Parmar MD [address] [place] [address] PCP - General Family Medicine 05/05/25 Raquel Santos Psychiatrist Psychiatry 09/09/19 Paige Therapist 05/05/25 Marilu Sheffield Consulting Physician Hematology 09/09/22 Waldo Kerr Consulting Physician Gastroenterology 07/10/24 documented as of this encounter
--- OUTSIDE RECORDS SUMMARY | 2025-07-12 11:27 | XMS_ITS | Encounter Summary ---
Author Organization [employer] Address [address] [facility] [address] [place] [address] Care Team Providers Care Electrical Tryout Person Name Role Phone Jah Root MD Primary Care Prov ider Brynn Parmar MD Primary Care Provider [phone] Reason for Visit * Reason Onset Date Comments Nurse Triage 08/06/2023 Encounter Details Date Type Department Care Team (Late st Contact Info) Description 08/06/2023 Telephone [facility] MEDICINE [address] [place] [address] Jah Root MD [address] [place], [place] [phone] Nurse Triage Social History Tobacco Use Types [...] at lat visit 07/26/23. Per pt did picking supervisor meclizine and took as instructed but dizziness [...] 07/20/2025 9:40 AM EST Procedure Visit [facility] MED & PEDS [address] [place] [address] Brynn Parmar MD [address] [place] [address] documented as of this encounter Visit Diagnoses Not on filedocumented in this encounter Additional Health Concerns Assessment Noted Time PHQ-9 Depression Total Score: 10 023 2:28 PM EST documented as of this encounter Care Teams Electrical Tryout Person Relationship Specialty Start Date End Date Jah Root MD [address] [place] [address] PCP - General Internal Medicine 01/26/20 05/04/25 Brynn Parmar MD [address] [place] [address] PCP - General Family Medicine 05/05/25 Raquel Santos Psychiatrist Psychiatry 09/09/19 Paige Therapist 05/05/25 Marilu Sheffield Consulting Physician Hematology 09/09/22 Waldo Kerr Consulting Physician Gastroenterology 07/10/24 documented as of this encounter
--- OUTSIDE RECORDS SUMMARY | 2025-07-12 11:27 | XMS_ITS | Clinical Summary ---
Author Organization [facility] Address [address] [facility] [address] [place] [address] Phone Care Team Providers Care Oncology Physician Name Role Phone Jah Root MD Primary [...] Adult Td,Tdap Booster 06/29/2021 06/29/2011 , 03/29/1997 MAMMOGRAM 2024 INFLUENZA VACCINE (#1) 2025 6, 05/30/2015, 07/28/2012 COVID-19 VACCINE (4 - 2024-2 6 season) 2025 10/06/2021, 01/18/2021, 12/21/2020 HEPATITIS A VACCINES Aged Out No long [...] topic Medical Devices Not on file Insurance [facility] [employer] [place] [id number] [employer] [place] [id number] [place] [id number] [employer] [place] [id number] [place] [id number] [place] [id number] [employer] [id number] ACO [facility] [employer] Care Teams Oncology Physician Relationship Specialty Start Date End Date Jah Root MD [address] [place] [id number] PCP - General Internal Medicine 02/08/22 Additional Source Comments The information contained in this document represents components of the legal health record. It is not the complete legal health record.[facility]
--- OUTSIDE RECORDS SUMMARY | 2025-07-12 11:27 | XMS_ITS | Encounter Summary ---
Author Organization [facility] Address [address] [place] [phone] Phone Care Team Providers Care Bingo Caller Name Role Phone Jah Root MD Primary Care Prov ider Encounter Details Date Type Department Care Team (Late st Contact Info) Description 04/30/2024 Procedure Pass [facility] Endoscopy Department [address] [place] [address] Social History Tobacco Use Types Packs/Day Years [...] on filedocumented in this encounter Care Teams Bingo Caller Relationship Specialty Start Date End Date Jah Root MD [address] [place] [address] PCP - General Internal Medicine 02/08/22 documented as of this encounter Additional Source Comments The information contained in this document represents components of the legal health record. It is not the complete legal health record.[facility]
--- OUTSIDE RECORDS SUMMARY | 2025-07-12 11:27 | XMS_ITS | Encounter Summary ---
Author Organization [employer] Address [address] [facility] [address] [place] [address] Care Team Providers Care Mold Yard Supervisor Name Role Phone Brynn Parmar MD Primary Care Provider [phone] Encounter Details Date Type Department Care Team (Latest Contact Info) Description 07/12/2025 Travel Social History Tobacco Use Types Packs/Day [...] Upcoming Encounters Date Type Department Care Team ([facility] st Contact Info) Description 07/20/2025 9:40 AM EST Procedure Visit [facility] [address] [place] [address] Brynn Parmar MD [address] [place] [address] documented as of this encounter Visit Diagnoses Not on filedocumented in this encounter Additional Health Concerns Assessment Noted Time PHQ-9 Depression Total Score: 15 025 8:58 AM EDT documented as of this encounter Care Teams Mold Yard Supervisor Relationship Specialty Start Date End Date Brynn Parmar MD [address] [place] [address] PCP - General Family Medicine 05/05/25 Raquel Santos Psychiatrist Psychiatry 09/09/19 Paige Therapist 05/05/25 Marilu Sheffield Consulting Physician Hematology 09/09/22 Waldo Kerr Consulting Physician Gastroenterology 07/10/24 documented as of this encounter
--- OUTSIDE RECORDS SUMMARY | 2025-07-12 11:28 | XMS_ITS | Clinical Summary ---
Author Organization [facility] Address [address] [place] [address] Care Team Providers Care Olive Knocker Name Role Phone Jah Cobian MD Primary Care Provider [phone] Allergies No known active allergies Medications Medication [...] age to complete this topic Care Teams Olive Knocker Relationship Specialty Start Date End Date Jah Cobian MD [address] [place] [id number] PCP - General Internal Medicine 04/29/24
--- OUTSIDE RECORDS SUMMARY | 2025-07-12 11:28 | XMS_ITS | Encounter Summary ---
Author Organization [employer] Address [address] [facility] 7[address] [place] [address] Care Team Providers Care Contract Associate Name Role Phone Jah Root MD Primary Care Prov ider Brynn Parmar MD Primary Care Provider [phone] Reason for Visit * Reason Onset Date Comments Results 03/10/2024 Encounter Details Date Type Department Care Team (Late st Contact Info) Description 03/10/2024 Telephone [facility] MEDICINE [address] [place] [address] Jah Root MD [address] [place], [place] [phone] Results Social History Tobacco Use Types Packs/Day [...] when done: Around 2 weeks ago Facility: [facility] Labs * Telephone Encounter - Miguel Davalos - 03/10/2024 10:15 AM EDT TC from pt requesting call back regarding Results. Type of results: Labs Date when done: Around 2 weeks ago Facility: [facility] Labs documented in this encounter Plan of Treatment Upcoming Encounters Date Type Department Care Team ([facility] st Contact Info) Description 07/20/2025 9:40 AM EST Procedure Visit [facility] [address] [place] [address] Brynn Parmar MD [address] [place] [address] documented as of this encounter Visit Diagnoses Not on filedocumented in this encounter Additional Health Concerns Assessment Noted Time PHQ-9 Depression Total Score: 8 10/30/19 24 9:42 AM EST documented as of this encounter Care Teams Contract Associate Relationship Specialty Start Date End Date Jah Root MD [address] [place] [address] PCP - General Internal Medicine 01/26/20 05/04/25 Brynn Parmar MD [address] [place] [address] PCP - General Family Medicine 05/05/25 Raquel Santos Psychiatrist Psychiatry 09/09/19 Paige Therapist 05/05/25 Marilu Sheffield Consulting Physician Hematology 09/09/22 Waldo Kerr Consulting Physician Gastroenterology 07/10/24 documented as of this encounter
--- OUTSIDE RECORDS SUMMARY | 2025-07-12 11:28 | XMS_ITS | Clinical Summary ---
Author Organization [facility] Address [address] [place] [address] Phone Care Team Providers Care Sweater Operator Name Role Phone Jah Root Primary Care [...] Problem Noted Date Diagnosed Date Cerebral meningioma ([facility] V24, [facility] V28) 0 01/14/2025 Assessment & Plan (01/14/2025 [...] - 04/12/2025 11:59 PM EDT Hospital Encounter [facility] Xray [address] [place] [phone] Hiatal hernia with GERD Discharge Disposition: Home or Self Care from Last 3 Months Surgical History Surgery Date Site/Laterality Comments TONSILLECTOMY ADENOIDECTOMY, BILATERAL MYRINGOTOMY AND TUBES PROCEDURE: [place] TONSILLECTOMY & ADENOIDECTOMY <AGE 11 UTERINE FIBROID [...] Safety Answer Date Record ed Physical Abuse Unrecognized value 08/26/2024 Verbal Abuse Unrecognized value 08/26/2024 Comments No Sex and Gender Information Value Date Recorded Sex Assigned at Female 10/02/2024 4:12 PM EST Legal Sex Female 3:10 PM EST Gender Identity Female 10/02/2024 4:12 PM EST Sexual Orientation Straight 01/29/2025 9: 56 AM EDT 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 Not on file Not [...] 01/28/2025 10:18 AM EDT Plan of Treatment Upcoming Encounters Date Type Department Care Team (Late st Contact Info) Description 11/04/2025 9:00 AM EST Office Visit Obstetrics & Gynecology - [address] [phone] Brendan, Brynn, [address] [phone] Health Maintenance Due Date Last Done Comments Pneumococcal Vaccine: Pediatrics (0 to 5 Years) and At-Risk Patients (6 to 49 Years) (1 of 2 - PCV) 12/05/2003 HPV Vaccines (3 - Risk 3-dose series) 10/30/2011 06/29/2011, 11/28/2007 Social Influencers of Health Screening 08/18/2022 Depression Screening 09/09/2024 COVID-19 Vaccine ( season) 2025 10/06/2021, 01/18/2021, 12/21/2020 Influenza Vaccine (#1) 2025 6, 05/30/2015, 07/28/2012 Breast Cancer Screening 08/25/2026 08/25/2024 Cervical Cancer Screening: HPV 07/10/2028 07/10/2023 Cholesterol Screening (Lipid Panel) 07/23/2029 07/23/2024 DTaP,Tdap,and Td Vaccines (8 - Td or Tdap) 07/21/2034 07/21/2024, 06/29/2011, 03/29/1997, Additional history exists RSV Immunization Adult Patients (1 - 1-dose 75+ series) 12/05/2059 MMR Vaccines Completed 07/10/1990, 04/09/1986 IPV Vaccines [...] 8:18 AM EDT Hiatal hernia with GERD MG MAMMO DIGITAL DIAGNOSTIC BILAT Routine 08/25/2024 [...] Signed Date: 04/12/2025 14:57 ET Workstation ID: [id number] Transcribed By: Self Edit Transcribed Date: 04/12/2025 12:24 ET Resident/PA/LEGAL ACTIVITY ADJUDICATOR: Shaniqua Dumas Narrative 04/12/2025 2:57 PM EDT FINDINGS: Double contrast esophagram performed. COMPARISON: CT abdomen outside imaging from September 03, 2022 reviewed HISTORY: Patient is a 39-year-old female with history of dysphagia. History patient reported hiatal hernia. Mechanical Field Engineer radiographs: 1 view abdominal radiograph demonstrates nonobstructive [...] history of dysphagia.History patient reported hiatal hernia. Mechanical Field Engineer radiographs: 1 view abdominal radiograph demonstrates nonobstructivebowel [...] Signed Date: 04/12/2025 14:57 ET Workstation ID: [id number] Transcribed By: Self Edit Transcribed Date: 04/12/2025 12:24 ET Resident/PA/LEGAL ACTIVITY ADJUDICATOR: Shaniqua Dumas us Jordi Almanza MD IMG FLUOROSCOPY PROCEDURES Final Result * MG Mammo Digital Diagnostic bilat (08/25/2024 9:35 AM EST) Anatomical Region Laterality Modality Breast Bilateral Mammography Historical Provider IMG BI PROCEDURES Final R esult * Hepatitis C antibody (08/20/2024 2:45 PM EST) [facility] Hepatitis C Antibody Negative Negative LAB CHEMISTRY METHOD 08/20/2024 5:07 PM EST [facility] Blood Venous blood specimen / Unknown Venipuncture / Unknown 08/20/2024 2:45 PM EST 08/20/2024 3:46 PM EST Germaine Robles CNM LAB BLOOD ORDERABLES Final Re sult [facility] [address] [place] [address], [place] [phone] * Cervical Cancer Screening: HPV (07/10/2023) [facility] Cervical Cancer Screening: HPV No interpreta tion,abstr acted Historical Provider HEALTH MAINTENANCE Final Result from Last 3 Months or Most Recently Relevant to Health Maintenance Insurance [facility] Care Teams Sweater Operator Relationship Specialty Start Date End Date Jah Root [address] [place], [place] PCP - General 04/29/24
--- OUTSIDE RECORDS SUMMARY | 2025-07-12 11:28 | XMS_ITS | Clinical Summary ---
Author Organization [employer] Address [address] [facility] 7[address] [place] [address] Care Team Providers Care Ethylbenzene Converter Helper Name Role Phone Brynn Parmar MD Primary Care Provider [phone] Allergies No known active allergies Medications clonazePAM (KlonoPIN) 0.5 MG tablet Take 1 tablet by mouth in the morning and 1 tablet in the evening. Active minoxidil (Loniten) 2.5 MG tabletIndication s:Androgenetic [...] 2 times daily. 180 tablet 3 4 Active cholecalciferol (Vitamin D-3) 25 MCG (1000 UT) tablet Take 1 tablet (25 mcg) by mouth Once per day. 120 tablet 3 5 Active fluvoxaMINE (Luvox) 50 MG tablet Take 50 mg by mouth at bedtime. 5 Active gabapentin (Neurontin) 100 MG capsule TAKE 1 CAPSULE BY MOUTH THREE TIMES A DAY BETH 1 MAYANK VECES AL DORENE 5 Active norethindrone (Aygestin) 5 MG tablet Take 5 mg by mouth Once per day. Active prazosin (Minipress) 2 MG capsule take 1 capsule by mouth everyday at bedtime 5 Active medroxyPROGESTER one (Provera) 10 MG tablet Take 2 tablets (20 mg) by mouth 3 times daily for 7 days. 42 tablet 5 07/19/20 25 Active HPV 9-valent (Gardasil-9) suspension prefilled syringe vaccine prefilled syringeIndicatio ns:Immunizations incomplete Inject 0.5 mL into the muscle 1 (one) time for 1 dose. 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 Exercise intolerance 07/21/2024 Generalized body aches 07/21/2024 Hemorrhoids 07/21/2024 Ileus (CMS/HCC) 07/21/2024 Odynophagia 07/21/2024 Palpitations 07/21/2024 Polyarthralgia 07/21/2024 [...] total, feeling much better, follow up with ob-rewinder operator helper History of gestational diabetes mellitus 022 Neck [...] hgb was 11.6, will place referal to ob-rewinder operator helper, Anemia 08/03/2022 05/05/2025 Overview (07/21/2024): Hgb 10.5, [...] Encounters Date Type Department Care Team Description 07/12/2025 9:15 AM EST Office Visit [facility] [address] [place] [address] Brynn Parmar MD Abnormal uterine bleeding (Primary Dx); Anemia, unspecified type; Transaminitis; Memory deficit; Immunizations incomplete 07/12/2025 Refill [facility] [address] [place] [address] Brynn Parmar MD 07/12/2025 Travel 06/30/[address] [address] Brynn Parmar MD Nurse Triage 05/28/[address] [address] Brynn Parmar MD Lab Results 05/11/2025 2:00 PM EDT Clinical Support [facility] [address] [place] [address] Dee Fisher RN Attention and concentration deficit 05/11/2025 Travel 05/05/2025 9:15 AM EDT Office Visit [facility] [address] [place] [address] Brynn Parmar MD Hiatal hernia (Primary Dx); Thalassemia trait; Encounter for immunization; Attention and concentration deficit; Gradual-onset memory impairment; Vitamin D deficiency; Overweight 05/05/2025 Travel 05/04/2025 Telephone [facility] [address] [place] [address] Brynn Parmar MD chart prep 04/28/2025 Patient Outreach [address] [address] Jah Root MD Pre-visit Planning (Pre visit planning LVM ) 04/13/2025 Orders Only [facility] [address] [place] [address] ProviderLalit MD from Last 3 Months Immunizations Immunization Administration [...] Mass Index 29.76 07/12/2025 9:18 AM EST Plan of Treatment Upcoming Encounters Date Type Department Care Team (Late st Contact Info) Description 07/20/2025 9:40 AM EST Procedure Visit [facility] [address] [place] [address] Brynn Parmar MD [address] [place] [address] Health Maintenance Due Date Last Done Comments Derm Melanoma Skin Check 06/06/1985 Family Planning (PISQ) 12/05/1999 HPV Vaccines (3 - 3-dose series) 09/21/2011 06/29/2011, 11/28/2007 Cervical Cancer Screening 04/19/2025 HPV/Cotest 04/19/2025 04/14/2020, 12/15/2018 Pap Smear 04/19/2025 04/14/2020, 12/15/2018 Depression Monitoring 11/05/2025 05/05/2025, 025 Hepatitis A Vaccines (2 of 2 - Risk 2-dose series) 11/05/2025 05/05/2025 Alcohol/Substance Use Screening 12/09/2025 12/09/2024 SDOH Screening 12/09/2025 12/09/2024 Influenza Vaccine (#1) 2026 6, 05/30/2015, 07/28/2012 Postponed from 05/10/2025 (Patient Refused) Disability Screening 05/05/2026 05/05/2025 COVID-19 Vaccine ( season) 2026 10/06/2021, 01/18/2021, 12/21/2020 Postponed from 05/10/2025 (Patient Refused) Tobacco Screening 07/12/2026 07/12/2025 Mammogram 08/25/2026 08/25/2024, 01/2024, 08/13/2024 DTaP/Tdap/Td Vaccines (7 - Td or Tdap) 07/21/2034 07/21/2024, 06/29/2011, 03/29/1997, Additional history exists Zoster Vaccines (1 of 2) 2034 RSV Patients and Patients Aged 60 years or older (1 - 1-dose 75+ series) 12/05/2059 IPV Vaccines Completed 08/09/1992, 09/1985, 04/09/1985, Additional history exists Hepatitis B Vaccines Completed 03/29/1997, 06/02/1996, 04/06/1996 Hepatitis C Screening Completed 07/06/2021 HIV Screening Completed 05/05/2025, 07/06/2021 HIB Vaccines Aged Out No longer [...] Procedure Name Priority Date/Time Associated Diagnosis Comments LIPID PANEL, STANDARD Routine 05/05/2025 9:59 AM EDT Overweight VITAMIN D,25-OH,TOTAL,IA Routine 05/05/2025 9:59 AM EDT Vitamin D deficiency HIV 1/2 ANTIGEN/ANTIBODY, FOURTH GENERATION W/RFL Routine 05/05/2025 9:59 AM EDT Gradual-onset memory impairment RPR (MONITOR) W/REFL TITER Routine 05/05/2025 9:59 AM EDT Gradual-onset memory impairment COMPREHENSIVE METABOLIC PANEL Routine 05/05/2025 9:59 AM EDT Gradual-onset memory impairment VITAMIN B12/FOLATE, SERUM PANEL Routine 05/05/2025 9:54 AM EDT Gradual-onset memory impairment CBC WITH AUTO DIFFERENTIAL Routine 05/05/2025 9:54 AM EDT Gradual-onset memory impairment LYME DISEASE AB W/REFL TO BLOT (IGG, IGM) Routine 05/05/2025 9:51 AM EDT Gradual-onset memory impairment XR BARIUM SWALLOW (ESOPHAGRAM) Routine 04/12/2025 8:48 AM EDT BI US BREAST LIMITED LEFT Routine 08/13/2024 1:15 PM EST ZZZ HISTORICAL HEPATITIS C AB W/REFL TO HCV RNA, QN, PCR Routine 07/06/2021 3:02 PM EDT HM PAP/HPV Routine 04/14/2020 12:00 AM EDT from Last 3 Months or Most Recently Relevant to Health Maintenance Results * Vitamin D, 25-Hydroxy, Total, Immunoassay (05/05/2025 9:59 AM EDT) Vitamin D 25-OH Total 45.9 >30 ng/mL [facility] Comment: Health Based Reference Values*< 20 ng/mL Iwyyahzap09-89 ng/mL Insufficient> 30 ng/mL Sufficient*Indira CULVER. N Engl J Med. 2007;357:266-280There is no well-established upper level of normal vitamin Dlevels. Some laboratories use 50 ng/mL as an upper limit ofnormal. However, toxicity is patient-dependent and may occurat any level. Careful correlation with the patient'spresentation is necessary and, if there is concern forvitamin D toxicity, treatment should be consideredirrespective of the serum level.Care must be taken in interpreting Vitamin D results fromdifferent laboratories and methodologies. Published datademonstrated that results from patients undergoinghemodialysis may show a negative bias when tested withvarious automated 25-OH vitamin D assays when compared toLC-MS/MS.When testing samples from patients whose predominant form ofVitamin D is Vitamin D2, such as patients receiving VitaminD2 supplementation, results that are subtherapeutic shouldbe confirmed with another method such as LC-MS/MS. Blood Venous blood specimen / Unknown 05/05/2025 9:59 AM EDT 05/05/2025 2:37 PM EDT Brynn Parmar MD LAB BLOOD ORDERABLES Final Re sult [facility] [address] [place] [phone] * RPR (Monitor) with Reflex to??Titer (05/05/2025 9:59 AM EDT) RPR (Monitor) w/Refl Titer NON-REACTI VE NON-REACT IGNACIO [facility] Comment:THIS TEST WAS PERFOR MED AT:[employer] [place] [id number] BHANDARI MD Rapid Plasma Reagin Ab Titer TNP [facility] Blood Venous blood specimen / Unknown 05/05/2025 9:59 AM EDT 05/05/2025 2:37 PM EDT Brynn Parmar MD LAB BLOOD ORDERABLES Final Re sult Performing Organization Address City/[facility]/ZIP Co de Phone Number [facility] [address] [place] [address] [phone] * HIV-1/2 Antigen and Antibodies, Fourth Generation, with Reflexes (05/05/2025 9:59 AM EDT) HIV AB/AG Nonreactive Nonreactive [facility] Comment:HIV-1 p24 Ag and/or HIV-1/HIV-2 Ab not detected.A test result that is nonreactive does not exclude thepossibility of exposure to or infection with HIV-1 and/orHIV-2. Nonreactive results in this assay for individualswith prior exposure to HIV-1 and/or HIV-2 may be due toantigen and antibody levels that are below the limit ofdetection of this assay.The Udorse HIV Ag/Ab Combo assay result andsupplemental assay results should be interpreted inconjunction with the patient's clinical presentation,history and other laboratory results. If the results areinconsistent with clinical evidence, additional testing issuggested to confirm the result. Blood Venous blood specimen / Unknown 05/05/2025 9:59 AM EDT 05/05/2025 2:37 PM EDT us Brynn Parmar MD LAB BLOOD ORDERABLES Final Re sult Performing Organization Address [facility]/ZIP Co de Phone Number [facility] [address] [place] [address] [phone] * (ABNORMAL) Lipid Panel, Standard (05/05/2025 9:59 AM EDT) Triglycerides 291(H) <150 mg/dL [facility] Comment:Slight Lipemia.Gerry able Triglyceride: less than 150 mg/dLBorderline High Triglyceride 150-199 mg/dLHigh Triglyceride: 200-499 mg/dLVery High Triglyceride: greater than or equal to 5OO mg/dL Cholesterol 160 <200 mg/dL [facility] Comment:Desirable Cholestero l: less than 200 mg/dLBorderline High Cholesterol: 200-239 mg/dLHigh Cholesterol: greater than 239 mg/dL LDL Cholesterol Calculated 66 <100 mg/dL [facility] Comment:Desirable LDL: less than 100 mg/dLNear Optimal/Above Optimal LDL: 110- 129 mg/dLBorderline High LDL: 130-159 mg/dLHigh LDL: 160-189 mg/dLVery High LDL: greater than or equal to 190 mg/dL HDL Cholesterol 36(L) >40 mg/dL [facility] Comment:Desirable HDL: great er than 40 mg/dL Note: This HDL assay may give artificially low results in patients with liver disease. Blood Venous blood specimen / Unknown 05/05/2025 9:59 AM EDT 05/05/2025 2:37 PM EDT us Brynn Parmar MD LAB BLOOD ORDERABLES Final Re sult [facility] [address] [place] [phone] * (ABNORMAL) Comprehensive Metabolic Panel (05/05/2025 9:59 AM EDT) Sodium 139 135 - 145 mmol/L [facility] Potassium 3.9 3.3 - 5.1 mmol/L [facility] Chloride 105 96 - 108 mmol/L [facility] Carbon Dioxide 26 22 - 29 mmol/L [facility] Anion Gap 12 12 - 20 [facility] Urea Nitrogen (BUN) 8(L) 9 - 16 mg/dL [facility] Creatinine, Serum 0.67 0.5 - 1.4 mg/dL [facility] Estimated Glomerular Filt Rate >60 [facility] Comment:Chronic Kidney Disea se: Estimated GFR < 60 mL/min/[id number] Kidney Disease: Estimated GFR < 15 mL/min/1.73m2 Glucose 89 60 - 115 mg/dL [facility] Calcium 9.4 8.4 - 10.2 mg/dL [facility] Bilirubin, Total 0.3 0.0 - 1.0 mg/dL [facility] Aspartate Amino Transferase 42(H) 5 - 31 U/L [facility] Alanine Aminotransferase 17 0 - 31 U/L [facility] Total Protein 7.9 6.5 - 8.0 g/dL [facility] Albumin Level 4.6 3.5 - 5.0 g/dL [facility] Alkaline Phosphatase 85 39 - 117 U/L [facility] Blood Venous blood specimen / Unknown 05/05/2025 9:59 AM EDT 05/05/2025 2:37 PM EDT us Brynn Parmar MD LAB BLOOD ORDERABLES Final Re sult Performing Organization Address [facility] Co de Phone Number [facility] [address] [place] [phone] * Vitamin B12 (Cobalamin) and Folate Panel, Serum (05/05/2025 9:54 AM EDT) Vitamin B12 268 200 - 900 pg/mL [facility] Comment:NORMAL 200-900 PG/ML INDETERMINATE 160-199 PG/ML DEFICIENT < 160 PG/ML Folate 6.2 > or = 4.0 ng/mL [facility] Comment:Reference Values:> o r = 4.0 ng/mL< 4.0 ng/mL suggests folate deficiency Methotrexate, aminopterin and folinic acid(leucovorin) are chemotherapeutic agents whose molecularstructures are similar to folate; therefore, the Architectfolate assay cannot be used for patients using these drugs. Blood Venous blood specimen / Unknown 05/05/2025 9:54 AM EDT 05/05/2025 2:37 PM EDT us Brynn Parmar MD LAB BLOOD ORDERABLES Final Re sult Performing Organization Address [facility] de Phone Number [facility] [address] [place] [phone] * (ABNORMAL) CBC auto differential (05/05/2025 9:54 AM EDT) Pathologist [facility] White Blood Count 8.2 4.8 - 10.8 X10*3/uL [facility] Red Blood Count 4.86 4.20 - 5.50 X10*6/uL [facility] Hemoglobin 12.4 12.0 - 16.0 g/dl [facility] Hematocrit 37.8 37.0 - 47.0 % [facility] Mean Corpuscular Volume 77.8(L) 80.0 - 98.0 fL [facility] Mean Corpuscular Hemoglobin 25.5(L) 27.0 - 33.0 pg [facility] Mean Corpuscular HGB Conc 32.8 31.0 - 35.0 g/dl [facility] Red Cell Distribution Width 13.6 11.0 - 16.0 % [facility] Platelet Count 275 160 - 400 X10*3/uL [facility] Mean Platelet Volume 10.3 9.4 - 12.3 fL [facility] Neutrophils Percent Auto 67.2 45 - 73 % [facility] Imm Gran Pct Auto 0.4 0.0 - 0.4 % [facility] Lymphocytes Percent Auto 26.6 20 - 40 % [facility] Monocytes Percent Auto 4.8 2 - 11 % [facility] Eosinophils Percent Auto 0.5 0 - 4 % [facility] Basophils Percent Auto 0.5 0 - 2 % [facility] NRBC Pct Auto 0.0 0.0 - 0.2 /100WBC [facility] Neutrophils Absolute Auto 5.5 2.0 - 8.3 x10*3/uL [facility] Imm Gran Abs Auto 0.03 0.00 - 0.03 X10*3/uL [facility] Lymphocytes Absolute Auto 2.2 1.2 - 4.9 X10*3/uL [facility] Monocytes Absolute Auto 0.4 0.1 - 1.2 X10*3/uL [facility] Eosinophils Absolute Auto 0.0 0.0 - 0.4 X10*3/uL [facility] Basophils Absolute Auto 0.0 0.0 - 0.2 X10*3/uL [facility] NRBC Abs Auto 0.000 0.0 - 0.012 X10*3/uL [facility] Blood Venous blood specimen / Unknown 05/05/2025 9:54 AM EDT 05/05/2025 2:37 PM EDT Brynn Parmar MD LAB BLOOD ORDERABLES Final Re sult Performing Organization Address [facility] Co de Phone Number [facility] [address] [place] [phone] * Lyme Disease Ab with Reflex to Blot (IgG, IgM) (05/05/2025 9:51 AM EDT) Lyme Antibody Screen <0.90 index [facility] Comment:Index Interpretation ----- < 0.90 Negative 0.90-1.09 Equivocal > 1.09 PositiveAs recommended by the Food and Drug Administration(FDA), all samples with positive or equivocalresults in a Borrelia burgdorferi antibody screenwill be tested using a blot method. Positive orequivocal screening test results should not beinterpreted as truly positive until verified as suchusing a supplemental assay (e.g., B. burgdorferi blot).The screening test and/or blot for B. burgdorferiantibodies may be falsely negative in early stagesof Lyme disease, including the period when erythemamigrans is apparent.THIS TEST WAS PERFORMED AT:[employer] [address] [phone] BHANDARI MD Lyme Blot [facility] 05/05/2025 9:51 AM EDT 05/05/2025 2:37 PM EDT Brynn Parmar MD LAB BLOOD ORDERABLES Final Re sult Performing Organization Address [facility]/ZIP Co de Phone Number [facility] [address] [place] [phone] * XR BARIUM SWALLOW (ESOPHAGRAM) (04/12/2025 8:48 AM EDT) Anatomical Region Laterality Modality Chest Radiographic Yamileth ging us Historical Provider IMMarie XR PROCEDURES Final R esult * BI US Breast Limited Left (08/13/2024 1:15 PM EST) Anatomical Region Laterality Modality Breast Left Ultrasound 08/13/2024 1:15 PM EST Narrative 08/13/2024 2:50 PM EST [facility] [address] [place] [address] Ultrasound Report Signed Patient: Radha Rodarte MR#: [id number] 62 : 1985 Acct:[id number] Age/Sex: 38 / F ADM Date: 08/13/24 Loc: HO.MAMMO Attending Dr: Jah Dejesus MD Ordering Physician: Jah Root MD Date of Service: 08/13/24 Procedure(s): US breast LT limited mamm only Accession Number(s): [id number] cc: Jah Root MD EXAMINATION: MM DIAGNOSTIC [...] 08/13/24 1447 DD/ 1315 TD/TT: 08/13/24 1430 Pneumatic Jacketer: Procedure Note Donotuseinterpreter, Image - 08/13/2024 [facility] [address] [place], [place] [address] Ultrasound Report Signed Patient: Radha Rodarte DMR#: [id number] 62 : 1985Acct:[id number] Age/Sex: 38 / FADM Date: 08/13/24 Loc: HO.MAMMO Attending Dr: Jah Dejesus MD Ordering Physician: Jah Root MD Date of Service: 08/13/24 Procedure(s): US breast LT limited mamm only Accession Number(s): [id number] cc: Jah Root MD EXAMINATION: MM DIAGNOSTIC [...] by: Amanda Santana DO 08/13/2024 02:47 PM [facility] Dictated By: Amanda Santana DO Signed By: <Electronically signed by Amanda Santana DO in OV> 08/13/24 1447 DD/ 1315 TD/TT: 08/13/24 1430 Pneumatic Jacketer: Jah Dejesus MD [facility] PROCEDURES Edited Result - Final * HEPATITIS C AB W/REFL TO HCV RNA, QN, PCR (07/06/2021 3:02 PM EDT) HEPATITIS C ANTIBODY NON-REACT IGNACIO NON-REACT IGNACIO [facility] INDEX 0.02 <1.00 [facility] Comment: HCV antibody was non-reactive. There is no laboratory evidence of HCV infection. In most cases, no further action is required. However, if recent HCV exposure is suspected, a test for HCV RNA (test code 28079) is suggested. For additional information please refer to http://education.[employer]/faq/DNM95d2 (This link is being provided for informational/ educational purposes only.) 07/06/2021 3:02 PM EDT Jah Dejesus MD HISTORICAL/NON ORD ERABLE LABS Final Result [facility] [address] * HM PAP/HPV (04/14/2020 12:00 AM EDT) Pap Smear 1. NILM 1. NILM HPV Undetected Undetected, Indeterminate , Quantitative, Not Detected Historical Provider HEALTH MAINTENANCE Edited Result - Final from Last 3 Months or Most Recently Relevant to Health Maintenance Insurance [facility] 3 Care Teams Ethylbenzene Converter Helper Relationship Specialty Start Date End Date Brynn Parmar MD [address] [place] [phone] PCP - General Family Medicine 05/05/25 Raquel Santos Psychiatrist Psychiatry 09/09/19 Paige Therapist 05/05/25 Marilu Sheffield Consulting Physician Hematology 09/09/22 Waldo Kerr Consulting Physician Gastroenterology 07/10/24
--- OUTSIDE RECORDS SUMMARY | 2025-07-12 11:28 | XMS_ITS | Encounter Summary ---
Author Organization [employer] Address [address] [facility] 7t [place] [address] Care Team Providers Care Bindery Operator Name Role Phone Jah Root MD Primary Care Prov ider Brynn Parmar MD Primary Care Provider Reason for Visit * Reason Onset Date Comments Results 09/10/2023 Encounter Details Date Type Department Care Team ([facility] st Contact Info) Description 09/10/2023 Telephone [facility] MED & PEDS [address] [place], [place] [phone] Jah Root MD [address] [place], [place] [phone] Results Social History Tobacco Use Types Packs/Day [...] results: Labs Date when done: 08/26/23 Facility: [facility] documented in this encounter Plan of Treatment Upcoming Encounters Date Type Department Care Team ([facility] st Contact Info) Description 07/20/2025 9:40 AM EST Procedure Visit [facility] MED & PEDS [address] [place] [address] Brynn Parmar MD [address] [place] [address] documented as of this encounter Visit Diagnoses Not on filedocumented in this encounter Additional Health Concerns Assessment Noted Time PHQ-9 Depression Total Score: 10 023 2:28 PM EST documented as of this encounter Care Teams Bindery Operator Relationship Specialty Start Date End Date Jah Root MD [address] [place] [address] PCP - General Internal Medicine 01/26/20 05/04/25 Brynn Parmar MD [address] [place] [address] PCP - General Family Medicine 05/05/25 Raquel Santos Psychiatrist Psychiatry 09/09/19 Paige Therapist 05/05/25 Marilu Sheffield Consulting Physician Hematology 09/09/22 Waldo Kerr Consulting Physician Gastroenterology 07/10/24 documented as of this encounter
--- OUTSIDE RECORDS SUMMARY | 2025-07-12 11:28 | XMS_ITS | Encounter Summary ---
Author Organization [employer] Address [address] [facility] [address] [place] [address] Care Team Providers Care Manpower Development Manager Name Role Phone Jah Root MD Primary Care Prov ider Brynn Parmar MD Primary Care Provider [phone] Reason for Visit * Reason Onset Date Comments Appointment Request 09/15/2024 Encounter Details Date Type Department Care Team (Late st Contact Info) Description 09/15/2024 Telephone [facility] MEDICINE [address] [place] [address] Jah Root MD [address] [place], [place] [phone] Appointment Request Social History Tobacco Use Types [...] Description 07/20/2025 9:40 AM EST Procedure Visit [facility] MED & PEDS [address] [place] [address] Brynn Parmar MD [address] [place] [address] documented as of this encounter Visit Diagnoses Not on filedocumented in this encounter Additional Health Concerns Assessment Noted Time PHQ-9 Depression Total Score: 8 10/30/19 24 9:42 AM EST documented as of this encounter Care Teams Manpower Development Manager Relationship Specialty Start Date End Date Jah Root MD [address] [place] [address] PCP - General Internal Medicine 01/26/20 05/04/25 Brynn Parmar MD [address] [place] [address] PCP - General Family Medicine 05/05/25 Raquel Santos Psychiatrist Psychiatry 09/09/19 Paige Therapist 05/05/25 Marilu Sheffield Consulting Physician Hematology 09/09/22 Waldo Kerr Consulting Physician Gastroenterology 07/10/24 documented as of this encounter
--- OUTSIDE RECORDS SUMMARY | 2025-07-12 11:28 | XMS_ITS | Encounter Summary ---
Author Organization [employer] Address [address] [facility] [address]t [place] [address] Care Team Providers Care Call Box Wirer Name Role Phone Jah Root MD Primary Care Prov ider Brynn Parmar MD Primary Care Provider [phone] Encounter Details Date Type Department Care Team (Late st Contact Info) Description 08/28/2024 Orders Only [facility] CHC MED & PEDS [address] [place], [place] [phone] Provider, MD Lalit Social History Tobacco Use [...] Description 07/20/2025 9:40 AM EST Procedure Visit [facility] MED & PEDS [address] [place] [address] Brynn Parmar MD 505 [place] [address] documented as of this encounter Procedures Procedure [...] documented as of this encounter Care Teams Call Box Wirer Relationship Specialty Start Date End Date Jha Root MD 505 [place] [address] PCP - General Internal Medicine 01/26/20 05/04/25 Brynn Parmar MD [address] [place] [address] PCP - General Family Medicine 05/05/25 [facility] 09/09/19 Paige Therapist 05/05/25 Marilu Sheffield Consulting Physician Hematology 09/09/22 Waldo Kerr Consulting Physician Gastroenterology 07/10/24 documented as of this encounter
[2025-07-12 14:10] LABS: MANUAL DIFF FLAG NO
[2025-07-12 14:14] LABS: Hematocrit 36.8 % (37.0-47.0); Hemoglobin 11.6 g/dl (12.0-16.0); Imm Gran Abs Auto 0.04 X10*3/uL (0.00-0.03); Imm Gran Pct Auto 0.5 % (0.0-0.4); Lymphocytes Absolute Auto 2.3 X10*3/uL (1.2-4.9); Mean Corpuscular HGB Conc 31.5 g/dl (31.0-35.0); Mean Corpuscular Hemoglobin 25.4 pg (27.0-33.0); Mean Corpuscular Volume 80.7 fL (80.0-98.0); NRBC Abs Auto 0.000 X10*3/uL (0.0-0.012); NRBC Pct Auto 0.0 /100WBC (0.0-0.2); Platelet Count 310 X10*3/uL (160-400); Red Blood Count 4.56 X10*6/uL (4.20-5.50); White Blood Count 8.8 X10*3/uL (4.8-10.8)
[2025-07-12 14:21] LABS: INTERNATIONAL NORM RATIO 1.0 (0.9-1.1); Prothrombin Time 11.5 SEC (10.9-12.4)
[2025-07-12 14:37] LABS: Alanine Aminotransferase 18 U/L (0-31); Albumin Level 4.6 g/dL (3.5-5.0); Alkaline Phosphatase 83 U/L (39-117); Aspartate Amino Transferase 26 U/L (5-31); Iron 35 mcg/dL (30-160); Percent Iron Saturation 10 % (15-50); Total Iron Binding Capacity 359 mcg/dL (228-428); Total Protein 7.4 g/dL (6.5-8.0); Unsaturated Iron Binding 324 ug/dL
[2025-07-12 14:42] LABS: Ferritin 15 ng/mL (10-250)
== END 2025-07-12 09:51 | disposition home or self-care (01) ==
LOC: HO.CHCLDS 09:50
PROVIDERS: Visit Provider Family Medicine
DX: R74.01 Elevation of levels of liver transaminase levels (principal); N93.9 Abnormal uterine and vaginal bleeding, unspecified; D64.9 Anemia, unspecified
CPT/HCPCS: 36415; 80076; 82728; 83540; 84443; 85025; 85610

== ENCOUNTER 2025-07-20 14:24 | Outpatient (REF) | payer OTHER, SELFPAY ==
--- OUTSIDE RECORDS SUMMARY | 2025-07-20 09:40 | XMS_ITS | Encounter Summary ---
Author Organization [employer] Address [address] [place] [address] 7t [place] [address] Care Team Providers Care Echo Technologist Name Role Phone Brynn Ojeda MD Primary Care Provider [phone] Reason for Referral * Imaging (Routine) - Authorized Specialty Diagnoses / Procedures Referred By Contac t Referred To Contact Radiology Diagnoses Mass of upper inner quadrant of right breast Procedures BI US Breast Complete Right Brynn Ojeda MD [address] [place], [place] Phone: tel: fax: [address] Phone: tel: fax: Referral ID Status Reason Start Date Expiration Date V isits Requested Visits Authorized [id number] Authorized 07/20/2025 07/20/2026 1 1 * Imaging (Routine) - Authorized Specialty Diagnoses / Procedures Referred By Contac t Referred To Contact Radiology Diagnoses Mass of upper inner quadrant of right breast Procedures BI Mammogram Diagnostic Tomosynthesis Bilateral Brynn Ojeda MD [address] [place] [address] Phone: tel: fax: [address] Phone: tel: fax: Referral ID Status Reason Start Date Expiration Date V isits Requested Visits Authorized [id number] Authorized 07/20/2025 07/20/2026 1 1 Reason for Visit * Reason Comments Cervical Cancer Screening Encounter Details Date Type Department Care Team (Latest Contact Info) Description 07/20/2025 9:40 AM EST Procedure Visit [facility] MED [facility] PEDS [address] [place] [address] Brynn Ojeda MD [address] [place] [address] Cervical cancer screening (Primary Dx); Mass of upper inner quadrant of right breast Social History Tobacco Use Types Packs/Day Years [...] Sign Reading Time Taken Comments Blood Pressure 130/68 07/20/2025 9:31 AM EST Pulse 84 07/20/2025 9:31 AM EST Temperature 37.3 C (99.1 F) 07/20/2025 9:31 AM EST Respiratory Rate 20 07/20/2025 9:31 AM EST Oxygen Saturation 98% 07/20/2025 9:31 AM EST Inhaled Oxygen Concentration - - Weight 76.3 kg (168 lb 3.2 oz) 07/20/2025 9:31 A M EST Height 163 cm (5' 4.17 ) 07/20/2025 9:31 AM EST Body Mass Index 28.72 07/20/2025 9:31 AM EST documented in this encounter Progress Notes * Brynn Ojeda MD - 07/20/2025 9:40 AM EST Images from the original note were not included. Subjective Patient ID: Radha Rodarte is a 39 y.o. female who presents for Cervical Cancer Screening. 39 y.o. female here for annual well woman preventive exam. LMP: No LMP recorded. Sexual activity: Social History Substance and Sexual Activity Sexual activity: Not Currently Partners: Male intention: BC method: Smoking hx: Tobacco Use: Low Risk (07/20/2025) Tobacco Smoking Tobacco Use: Never Smokeless Tobacco Use: Never Passive Exposure: Never Alcohol use hx: Social History Substance and Sexual Activity Alcohol use: Never OBHx: # 1 - Date: None, Sex: None, Weight: None, GA: None, Type: None, Apgar1: None, Apgar5: None, Living: None, Comments: None # 2 - Date: None, Sex: None, Weight: None, GA: None, Type: None, Apgar1: None, Apgar5: None, Living: None, Comments: None # 3 - Date: None, Sex: None, Weight: None, GA: None, Type: None, Apgar1: None, Apgar5: None, Living: None, Comments: None IPV: Denies IPV Reviewed family hx Review of patient's family history indicates: Problem: Coronary artery disease Relation: Mother Name: Age of Onset: (Not Specified) Problem: Thyroid disease Relation: Mother Name: Age of Onset: (Not Specified) Problem: Hypertension Relation: Mother Name: Age of Onset: (Not Specified) Problem: Fibromyalgia Relation: Mother Name: Age of Onset: (Not Specified) Problem: Arthritis Relation: Mother Name: Age of Onset: (Not Specified) Problem: Deep vein thrombosis Relation: Father Name: Age of Onset: (Not Specified) Health Maintenance: No results found for: HMPAP , HMMAMMO , HMCOLON Review of Systems Constitutional: Negative for appetite change, fatigue and fever. HENT: Negative for congestion, postnasal drip and rhinorrhea. Eyes: Negative for discharge and redness. Respiratory: Negative for apnea, cough, chest tightness and shortness of breath. Cardiovascular: Negative for chest pain. Gastrointestinal: Negative for abdominal pain. Endocrine: Negative for polyphagia. Genitourinary: Negative for difficulty urinating, dysuria and urgency. Musculoskeletal: Negative for arthralgias. Neurological: Negative for dizziness, light-headedness, numbness and headaches. Hematological: Negative for adenopathy. Does not bruise/bleed easily. Objective Visit Vitals BP 130/68 Pulse 84 Temp 99.1 ??F (37.3 ??C) (Oral) Resp 20 Ht 5' 4.17 (1.63 m) Wt 168 lb 3.2 oz (76.3 kg) SpO2 98% BMI 28.72 kg/m?? OB Status Having periods Smoking Status Never BSA 1.86 m?? Physical Exam Vitals reviewed. Exam conducted with a cooking appliance repair technician present. HENT: Head: Normocephalic and atraumatic. Pulmonary: Effort: Pulmonary effort is normal. Chest: Chest wall: No deformity, tenderness or crepitus. Breasts: Breasts are symmetrical. Right: Mass present. No inverted nipple, nipple discharge, skin change or tenderness. Left: Normal. No inverted nipple, nipple discharge, skin change or tenderness. Comments: 2.5 cm x 2.5 cm mobile mass Genitourinary: Urethra: No prolapse. Vagina: Bleeding present. Cervix: Normal. Rectum: Normal. Musculoskeletal: Cervical back: Normal range of motion. Lymphadenopathy: Upper Body: Right upper body: No supraclavicular, axillary or pectoral adenopathy. Left upper body: No supraclavicular, axillary or pectoral adenopathy. Psychiatric: Mood and Affect: Mood normal. Assessment/Plan Problem List Items Addressed This Visit Mass of upper inner quadrant of right breast Relevant Orders BI Mammogram Diagnostic Tomosynthesis Bilateral BI US Breast Complete Right Cervical cancer screening - Primary 39 y.o. here for cervical cancer screening. Will continue monitoring following ASCCP guidelines. R breast mass, send to diagnostic mammo and breast US following CRICO guidelines. documented in this encounter Miscellaneous Notes * Assessment & Plan Note - Brynn Ojeda MD - 07/20/2025 10:13 AM EST Associated Problem(s): Cervical cancer screening 39 y.o. here for cervical cancer screening. Will continue monitoring following ASCCP guidelines. * Addendum Note - Brynn Ojeda MD - 07/20/2025 9:40 AM ESTAddended by: BRYNN OJEDA on: 07/20/2025 11:50 AM Modules accepted: Orders documented in this encounter Plan of Treatment Scheduled Orders Name Type Priority Associated Diagnoses Order Schedule BI Mammogram Diagnostic Tomosynthesis Bilateral Imaging Routine Mass of upper inner quadrant of right breast Expected: 07/20/2025, Expires: 09/19/2026 BI US Breast Complete Right Imaging Routine Mass of upper inner quadrant of right breast Expected: 07/20/2025, Expires: 07/20/2026 Pap Smear Pathology and Cytology Routine Cervical cancer screening Ordered: 07/20/2025 HPV High Risk with Reflex to Subtypes Lab Routine Cervical cancer screening Ordered: 07/20/2025 documented as of this encounter Visit Diagnoses Diagnosis Cervical cancer screening- Primary Screening for malignant neoplasm of the cervix Mass of upper inner quadrant of right breast documented in this encounter Additional Health Concerns Assessment Noted Time PHQ-9 Depression Total Score: 15 025 8:58 AM EDT documented as of this encounter Care Teams Echo Technologist Relationship Specialty Start Date End Date Brynn Ojeda MD [address] [place] [address] PCP - General Family Medicine 05/05/25 Raquel Santos Psychiatrist Psychiatry 09/09/19 Paige Therapist 05/05/25 Marilu Sheffield Consulting Physician Hematology 09/09/22 Waldo Kerr Consulting Physician Gastroenterology 07/10/24 documented as of this encounter
--- OUTSIDE RECORDS SUMMARY | 2025-07-20 16:05 | XMS_ITS | Encounter Summary ---
Author Organization [employer] Address [address] [facility] 7t [place] [address] Care Team Providers Care Quality Assurance Name Role Phone Brynn Parmar MD Primary Care Provider [phone] Reason for Visit * Reason Onset Date Comments Results 07/14/2025 returning call 07/14/2025 Encounter Details Date Type Department Care Team ([facility] st Contact Info) Description 07/14/2025 Telephone [facility] CHC MED & PEDS [address] [place], [place] [phone] Brynn Parmar MD [address] [place], [place] [phone] Results; returning call Social History Tobacco Use Types Packs/Day Years [...] your housing situation today? I have irineo edmund 12/09/[address] you li [...] encounter Miscellaneous Notes * Telephone Encounter - Aracely Huertas - 07/16/2025 1:56 PM EST TC from pt returning call. 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 No answer. Detailed message left for patient. Patient will call office PRN. * Telephone Encounter - Brynn Parmar MD - 07/14/2025 1:17 PM EST Patient has mild anemia and low saturation. Will send iron supplementation. Repeat CBC in 3 months.Thanks! Other labs within target limits. * Telephone Encounter - Reshma Rodriguez - 07/14/2025 9:05 AM EST TC from pt requesting call back regarding Results. Type of results: Lab orders Date when done: 07/12 Facility: [facility] Contact pt at [phone] (nepali) documented in this encounter Plan of Treatment Scheduled Orders Name Type Priority Associated Diagnoses Orde r Schedule CBC auto differential Lab Routine Anemia, unspecified type Expected: 07/14/2025 (Approximate), Expires: 07/14/2026 documented as of this encounter Visit Diagnoses Diagnosis Anemia, unspecified type- Primary documented in this encounter Additional Health Concerns Assessment Noted Time PHQ-9 Depression Total Score: 15 025 8:58 AM EDT documented as of this encounter Care Teams Quality Assurance Relationship Specialty Start Date End Date Brynn Parmar MD [address] [place] [address] PCP - General Family Medicine 05/05/25 Raquel Santos Psychiatrist Psychiatry 09/09/19 Paige Therapist 05/05/25 Marilu Sheffield Consulting Physician Hematology 09/09/22 Waldo Kerr Consulting Physician Gastroenterology 07/10/24 documented as of this encounter
--- OUTSIDE RECORDS SUMMARY | 2025-07-20 16:05 | XMS_ITS | Clinical Summary ---
Author Organization [facility] Address [address] [facility] [address] [place] [address] Phone Care Team Providers Care Singe Machine Operator Name Role Phone Jah Root MD [...] HEPATITIS C SCREENING 2002 HIV ONE-TIME SCREENING (18-65 YEARS) 2002 PAP SMEAR 2005 SCREENING FOR DIABETES 12/05/2019 Adult Td,Tdap Booster 06/29/2021 06/29/2011, 997 MAMMOGRAM 2024 INFLUENZA VACCINE (#1) 2025 6, 05/30/2015, 07/28/2012 COVID-19 VACCINE ( season) 2025 10/06/2021, 01/18/2021, 12/21/2020 IPV VACCINES Completed 08/09/1992, 09/1985, 04/09/1985, Additional history exists HEPATITIS A VACCINES Aged Out No long [...] (0-49 years) Aged Out No longer eligible based on patient's age to complete this topic Medical Devices Not on file Insurance [facility] C3 [employer] [facility] [address] [place] [place] [address] [place] [id number] [place] [id number] [place] [address] [place] [address] [place] [address] [place] [address] [place] [address] ACO [facility] C3 ACO Care Teams Singe Machine Operator Relationship Specialty Start Date End Date Jah Root MD [address] [place] [address] PCP - General Internal Medicine 02/08/22 Additional Source Comments The information contained in this document represents components of the legal health record. It is not the complete legal health record.[facility]
--- OUTSIDE RECORDS SUMMARY | 2025-07-20 16:05 | XMS_ITS | Encounter Summary ---
Author Organization [employer] Address [address] [facility] 7t [place] [address] Care Team Providers Care Insect Control Inspector Name Role Phone Jah Root MD Primary Care Prov ider Brynn Parmar MD Primary Care Provider [phone] Encounter Details Date Type Department Care Team (Late st Contact Info) Description 11/06/2024 Orders Only [facility] [address] [place] [address] Provider, MD Lalit Social History Tobacco Use [...] on file documented as of this encounter Procedures Procedure [...] documented as of this encounter Care Teams Insect Control Inspector Relationship Specialty Start Date End Date Jah Root MD [address] [place] [address] PCP - General Internal Medicine 01/26/20 05/04/25 Brynn Parmar MD 505 [place] [address] PCP - General Family Medicine 05/05/25 Raquel Santos Psychiatrist Psychiatry 09/09/19 Paige Therapist 05/05/25 Marilu Sheffield Consulting Physician Hematology 09/09/22 Waldo Kerr Consulting Physician Gastroenterology 07/10/24 documented as of this encounter
--- OUTSIDE RECORDS SUMMARY | 2025-07-20 16:05 | XMS_ITS | Encounter Summary ---
Author Organization [employer] Address [address] [facility] 7t [place] [address] Care Team Providers Care Lining Closer Name Role Phone Jah Root MD Primary Care Prov ider Brynn Parmar MD Primary Care Provider Reason for Visit * Reason Onset Date Comments Appointment Request 09/15/2024 Encounter Details Date Type Department Care Team (Late st Contact Info) Description 09/15/2024 Telephone [facility] MEDICINE [address] [place] [address] Jah Root MD [address] [place], [place] [phone] Appointment Request Social History Tobacco Use Types [...] documented in this encounter Plan of Treatment Not on file documented as of this encounter Visit Diagnoses Not on filedocumented in this encounter Additional Health Concerns Assessment Noted Time PHQ-9 Depression Total Score: 8 10/30/19 24 9:42 AM EST documented as of this encounter Care Teams Lining Closer Relationship Specialty Start Date End Date Jah Root MD [address] [place] [address] PCP - General Internal Medicine 01/26/20 05/04/25 Brynn Parmar MD [address] [place] [address] PCP - General Family Medicine 05/05/25 Raquel Santos Psychiatrist Psychiatry 09/09/19 Paige Therapist 05/05/25 Marilu Sheffield Consulting Physician Hematology 09/09/22 Waldo Kerr Consulting Physician Gastroenterology 07/10/24 documented as of this encounter
--- OUTSIDE RECORDS SUMMARY | 2025-07-20 16:05 | XMS_ITS | Encounter Summary ---
Author Organization [employer] Address [address] [place] [address] 7t [place] [address] Care Team Providers Care Sawmill Hand Name Role Phone Brynn Parmar MD Primary Care Provider Reason for Visit * Reason Comments Med Change Request Encounter Details Date Type Department Care Team ([facility] st Contact Info) Description 07/12/2025 Refill [facility] CHC MED & PEDS [address] [place], [place] [phone] Brynn Parmar MD [address] [place], [place] [phone] Social History Tobacco Use Types Packs/Day Years [...] documented as of this encounter Care Teams Sawmill Hand Relationship Specialty Start Date End Date Brynn Parmar MD [address] [place] [address] PCP - General Family Medicine 05/05/25 Raquel Santos Psychiatrist Psychiatry 09/09/19 Paige Therapist 05/05/25 Marilu Sheffield Consulting Physician Hematology 09/09/22 Waldo Kerr Consulting Physician Gastroenterology 07/10/24 documented as of this encounter
--- OUTSIDE RECORDS SUMMARY | 2025-07-20 16:05 | XMS_ITS | Encounter Summary ---
Author Organization [employer] Address [address] [facility] 7t [place] [address] Care Team Providers Care General Farm Manager Name Role Phone Brynn Parmar MD Primary Care Provider [phone] Encounter Details Date Type Department Care Team (Latest Contact Info) Description 07/20/2025 Travel Social History Tobacco Use Types Packs/Day [...] documented as of this encounter Care Teams General Farm Manager Relationship Specialty Start Date End Date Brynn Parmar MD [address] [place] [address] PCP - General Family Medicine 05/05/25 Raquel Santos Psychiatrist Psychiatry 09/09/19 Paige Therapist 05/05/25 Marilu Sheffield Consulting Physician Hematology 09/09/22 Waldo Kerr Consulting Physician Gastroenterology 07/10/24 documented as of this encounter
--- OUTSIDE RECORDS SUMMARY | 2025-07-20 16:05 | XMS_ITS | Encounter Summary ---
Author Organization [employer] Address [address] [facility] 7t [place] [address] Care Team Providers Care Marine Driller Name Role Phone Jah Root MD Primary Care Prov ider Brynn Parmar MD Primary Care Provider [phone] Reason for Visit * Reason Onset Date Comments Nurse Triage 08/06/2023 Encounter Details Date Type Department Care Team (Late st Contact Info) Description 08/06/2023 Telephone [facility] MEDICINE [address] [place] [address] Jah Root MD [address] [place], [place] [phone] Nurse Triage Social History Tobacco Use Types [...] at lat visit 07/26/23. Per pt did picker/puller meclizine and took as instructed but dizziness [...] documented as of this encounter Care Teams Marine Driller Relationship Specialty Start Date End Date Jah Root MD [address] [place] [address] PCP - General Internal Medicine 01/26/20 05/04/25 Brynn Parmar MD [address] [place] [address] PCP - General Family Medicine 05/05/25 Raquel Santos Psychiatrist Psychiatry 09/09/19 Paige Therapist 05/05/25 Marilu Sheffield Consulting Physician Hematology 09/09/22 Waldo Kerr Consulting Physician Gastroenterology 07/10/24 documented as of this encounter
--- OUTSIDE RECORDS SUMMARY | 2025-07-20 16:05 | XMS_ITS | Encounter Summary ---
Author Organization [employer] Address [address] [facility] 7t [place] [address] Care Team Providers Care Histologic Technician Name Role Phone Jah Root MD Primary Care Prov ider Brynn Parmar MD Primary Care Provider [phone] Reason for Visit * Reason Onset Date Comments Change PCP 10/28/2024 Encounter Details Date Type Department Care Team ([facility] st Contact Info) Description 10/28/2024 Telephone [facility] MED & PEDS [address] [place], [place] [phone] Jah Root MD [address] [place], [place] [phone] Change PCP Social History Tobacco Use Types [...] and results were sent to PCP from [facility] to review next steps and has not heard anything. Pt states feels like she needs aprovider who will be more responsive and available. Pt prefers to stay at the [facility] location. Pt infor med of limited [...] documented as of this encounter Care Teams Histologic Technician Relationship Specialty Start Date End Date Jah Root MD [address] [place] [address] PCP - General Internal Medicine 01/26/20 05/04/25 Brynn Parmar MD [address] [place] [address] PCP - General Family Medicine 05/05/25 Raquel Santos Psychiatrist Psychiatry 09/09/19 Paige Therapist 05/05/25 Marilu Sheffield Consulting Physician Hematology 09/09/22 Waldo Kerr Consulting Physician Gastroenterology 07/10/24 documented as of this encounter
--- OUTSIDE RECORDS SUMMARY | 2025-07-20 16:05 | XMS_ITS | Encounter Summary ---
Author Organization [facility] Address [address] [place] [address] Phone Care Team Providers Care Board Design Engineer Name Role Phone Jah Root MD Primary Care Prov ider Encounter Details Date Type Department Care Team (Late st Contact Info) Description 04/30/2024 Procedure Pass [facility] Endoscopy Department [address] [place] [address] Social History Tobacco Use Types Packs/Day Years [...] on filedocumented in this encounter Care Teams Board Design Engineer Relationship Specialty Start Date End Date Jah Root MD [address] [place] [address] PCP - General Internal Medicine 02/08/22 documented as of this encounter Additional Source Comments The information contained in this document represents components of the legal health record. It is not the complete legal health record.[facility]
--- OUTSIDE RECORDS SUMMARY | 2025-07-20 16:05 | XMS_ITS | Encounter Summary ---
Author Organization [employer] Address [address] [facility] [address] 7[address] [place] [address] Care Team Providers Care Meteorology Instructor Name Role Phone Jah Root MD Primary Care Prov ider Brynn Parmar MD Primary Care Provider [phone] Encounter Details Date Type Department Care Team (Late st Contact Info) Description 04/13/2025 Orders Only [facility] CHC MED & PEDS [address] [place], [place] [phone] Provider, MD Lalit Social History Tobacco Use [...] Chest Radiographic Yamileth ging us Historical Provider IMG XR PROCEDURES Final R esult documented in this encounter Visit Diagnoses Not on filedocumented in this encounter Additional Health Concerns Assessment Noted Time PHQ-9 Depression Total Score: 9 02/24/20 25 1:16 PM EDT documented as of this encounter Care Teams Meteorology Instructor Relationship Specialty Start Date End Date Jah Root MD [address] [place] [address] PCP - General Internal Medicine 01/26/20 05/04/25 Brynn Parmar MD [address] [place] [address] PCP - General Family Medicine 05/05/25 Raquel Santos Psychiatrist Psychiatry 09/09/19 Paige Therapist 05/05/25 Marilu Sheffield Consulting Physician Hematology 09/09/22 Waldo Kerr Consulting Physician Gastroenterology 07/10/24 documented as of this encounter
--- OUTSIDE RECORDS SUMMARY | 2025-07-20 16:05 | XMS_ITS | Encounter Summary ---
Author Organization [employer] Address [address] [facility] [address] [place] [address] Care Team Providers Care Lower School Music Teacher Name Role Phone Jah Root MD Primary Care Prov ider Brynn Parmar MD Primary Care Provider [phone] Encounter Details Date Type Department Care Team (Late st Contact Info) Description 08/28/2024 Orders Only [facility] CHC MED & PEDS [address] [place], [place] [phone] Provider, MD Lalit Social History Tobacco Use [...] documented as of this encounter Care Teams Lower School Music Teacher Relationship Specialty Start Date End Date Jah Root MD [address] [place] [address] PCP - General Internal Medicine 01/26/20 05/04/25 Brynn Parmar MD 505 [place] [address] PCP - General Family Medicine 05/05/25 Raquel Santos Psychiatrist Psychiatry 09/09/19 Paige Therapist 05/05/25 Marilu Sheffield Consulting Physician Hematology 09/09/22 Waldo Kerr Consulting Physician Gastroenterology 07/10/24 documented as of this encounter
--- OUTSIDE RECORDS SUMMARY | 2025-07-20 16:06 | XMS_ITS | Encounter Summary ---
Author Organization [employer] Address [address] [facility] 7[address] [place] [address] Care Team Providers Care House Parent Name Role Phone Jah Root MD Primary Care Prov ider Brynn Parmar MD Primary Care Provider [phone] Reason for Visit * Reason Onset Date Comments Results 09/10/2023 Encounter Details Date Type Department Care Team ([facility] st Contact Info) Description 09/10/2023 Telephone [facility] [address] [place], [place] [phone] Jah Root MD [address] [place], [place] [phone] Results Social History Tobacco Use Types Packs/Day [...] results: Labs Date when done: 08/26/23 Facility: [facility] documented in this encounter Plan of Treatment Not on file documented as of this encounter Visit Diagnoses Not on filedocumented in this encounter Additional Health Concerns Assessment Noted Time PHQ-9 Depression Total Score: 10 023 2:28 PM EST documented as of this encounter Care Teams House Parent Relationship Specialty Start Date End Date Jah Root MD [address] [place] [address] PCP - General Internal Medicine 01/26/20 05/04/25 Brynn Parmar MD [address] [place] [address] PCP - General Family Medicine 05/05/25 Raquel Santos Psychiatrist Psychiatry 09/09/19 Paige Therapist 05/05/25 Marilu Sheffield Consulting Physician Hematology 09/09/22 Waldo Kerr Consulting Physician Gastroenterology 07/10/24 documented as of this encounter
--- OUTSIDE RECORDS SUMMARY | 2025-07-20 16:06 | XMS_ITS | Clinical Summary ---
Author Organization [employer] Address [address] [facility] 7[address] [place] [address] Care Team Providers Care Functional Architect Name Role Phone Brynn Parmar MD Primary Care Provider [phone] Allergies No known active allergies Medications clonazePAM [...] times daily. 180 tablet 3 06/11/20 24 Active cholecalciferol (Vitamin D-3) 25 MCG (1000 UT) tablet Take 1 tablet (25 mcg) by mouth Once per day. 120 tablet 3 05/05/20 25 Active fluvoxaMINE (Luvox) 50 MG tablet Take 50 mg by mouth at bedtime. 05/21/20 25 Active gabapentin (Neurontin) 100 MG capsule TAKE 1 CAPSULE BY MOUTH THREE TIMES A DAY BETH 1 MAYANK RUSH AL DORENE 05/20/20 Active norethindrone (Aygestin) 5 MG tablet Take 5 mg by mouth Once per day. Active prazosin (Minipress) 2 MG capsule take 1 capsule by mouth everyday at bedtime 05/21/20 Active ferrous gluconate (Fergon) 324 (38 Fe) MG tablet Take 1 tablet (324 mg) by mouth with breakfast. 90 tablet 1 07/14/20 Active medroxyPROGESTE Clyde (Provera) 10 MG tablet Take 2 tablets (20 mg) by mouth 3 times daily for 7 days. 42 tablet 07/14/20 025 Active medroxyPROGESTE Clyde (Provera) 10 MG tablet Take 2 tablets (20 mg) by mouth 3 times daily for 7 days. 42 tablet 07/12/20 Discontinued(Re order (will not trigger notification to Pharmacy)) HPV 9-valent (Gardasil-9) suspension prefilled syringe vaccine prefilled syringeIndicati ons:Immunizatio ns incomplete Inject 0.5 mL into the muscle 1 (one) time for 1 dose. 0.5 mL 07/12/20 Active Problems Problem Noted Date Diagnosed Date Mass of upper inner quadrant of right breast 07/2025 Cervical cancer screening 07/20/2025 Assessment & Plan (07/20/2025 10:13 AM EST): 39 y.o. here for cervical cancer screening. Will continue monitoring following ASCCP guidelines. Hiatal hernia 05/05/2025 Thalassemia trait 05/05/2025 Attention and concentration deficit 05/05/2025 Cerebral meningioma (CMS/HCC) 01/14/2025 Paresthesia 07/21/2024 Abnormal uterine bleeding 07/21/2024 Assessment & Plan (07/21/2024 6:22 PM EST): Followed by [facility] EN positive 07/21/2024 Biliary dyskinesia 07/21/2024 Chronic [...] total, feeling much better, follow up with [facility] History of gestational diabetes mellitus 022 Neck [...] hgb was 11.6, will place referal to [facility], Anemia 08/03/2022 05/05/2025 Overview (07/21/2024): Hgb 10.5, [...] Encounters Date Type Department Care Team Description 07/20/2025 9:40 AM EST Procedure Visit [facility] [address] [place] [address] Brynn Parmar MD Cervical cancer screening (Primary Dx); Mass of upper inner quadrant of right breast 07/20/2025 Travel 07/14/[address] [facility] [address] [place] [address] Brynn Parmar MD Results; returning call 07/13/[address] [address] Brynn Parmar MD Prior Authorization 07/12/2025 9:15 AM EST Office Visit [facility] [address] [place] [address] Brynn Parmar MD Abnormal uterine bleeding (Primary Dx); Anemia, unspecified type; Transaminitis; Memory deficit; Immunizations incomplete 07/12/[address] [facility] [address] [place] [address] Brynn Parmar MD 07/12/2025 Travel 06/30/[address] [address] Brynn Parmar MD Nurse Triage 05/28/2025 Telephone [address] [place] [address] Brynn Parmar MD Lab Results 05/11/2025 2:00 PM EDT Clinical Support [facility] [address] [place] [address] Dee Fisher RN Attention and concentration deficit 05/11/2025 Travel 05/05/2025 9:15 AM EDT Office Visit [facility] [address] [place] [address] Brynn Parmar MD Hiatal hernia (Primary Dx); Thalassemia trait; Encounter for immunization; Attention and concentration deficit; Gradual-onset memory impairment; Vitamin D deficiency; Overweight 05/05/2025 Travel 05/04/2025 Telephone [facility] [address] [place] [phone] Brynn Parmar MD chart prep 04/28/2025 Patient Outreach [facility] [address] [place] [phone] Jah Root MD Pre-visit Planning (Pre visit planning LVM ) from Last 3 Months Immunizations Immunization Administration Dates Next Due DTP 07/10/1990, 6,04/09/1985,1984 HPV, Quadrivalent 06/29/2011,11/28/2007 Hep A, Adult 05/05/2025 Hep B, Adolescent or Pediatric 03/29/1997,1995,04/06/1996 Influenza injectable quadriv alent IIV4 with preservative 06/20/2016,05/30/2015 Influenza, Split (incl. uhang fied surface antigen) 07/28/2012 MMR 07/10/1990,04/09/1986 OPV, [...] Mass Index 28.72 07/20/2025 9:31 AM EST Plan of Treatment Health Maintenance Due Date [...] Postponed from 05/10/2025 (Patient Refused) Tobacco Screening 07/20/2026 07/20/2025 Mammogram 08/25/2026 08/25/2024, 01/2024, 08/13/2024 DTaP/Tdap/Td Vaccines [...] Procedure Name Priority Date/Time Associated Diagnosis Comments HEPATIC FUNCTION PANEL Routine 9:52 AM EST Transaminitis IRON AND TOTAL IRON BINDING CAPACITY Routine 07/12/2025 9:52 AM EST Anemia, unspecified type FERRITIN Routine 07/12/2025 9:52 AM EST Anemia, unspecified type PROTHROMBIN TIME-INR Routine 07/12/2025 9:52 AM EST Abnormal uterine bleeding TSH W/REFLEX TO FT4 Routine 07/12/2025 9 :52 AM EST Abnormal uterine bleeding CBC WITH AUTO DIFFERENTIAL Routine 07/12/2025 9:52 AM EST Abnormal uterine bleeding LIPID PANEL, STANDARD Routine 05/05/2025 9:59 AM [...] 05/05/2025 9:51 AM EDT Gradual-onset memory impairment BI US BREAST LIMITED LEFT Routine 08/13/2024 1:15 PM EST ZZZ HISTORICAL HEPATITIS C AB W/REFL TO HCV RNA, QN, PCR Routine 07/06/2021 3:02 PM EDT HM PAP/HPV Routine 04/14/2020 12:00 AM EDT from Last 3 Months or Most Recently Relevant to Health Maintenance Results * TSH W/Reflex to FT4 (07/12/2025 9:52 AM EST) TSH reflex Free T4 1.79 0.32 - 4.0 uIU/mL [facility] Blood Venous blood specimen / Unknown 07/12/2025 9:52 AM EST 07/12/2025 2:06 PM EST us Brynn Parmar MD LAB BLOOD ORDERABLES Final Re sult [facility] [address] [place] [phone] * (ABNORMAL) CBC auto differential (07/12/2025 9:52 AM EST) Only the most recent of2 resultswithin the time period is included. White Blood Count 8.8 4.8 - 10.8 X10*3/uL [facility] Red Blood Count 4.56 4.20 - 5.50 X10*6/uL [facility] Hemoglobin 11.6(L) 12.0 - 16.0 g/dl [facility] Hematocrit 36.8(L) 37.0 - 47.0 % [facility] Mean Corpuscular Volume 80.7 80.0 - 98.0 fL [facility] Mean Corpuscular Hemoglobin 25.4(L) 27.0 - 33.0 pg [facility] Mean Corpuscular HGB Conc 31.5 31.0 - 35.0 g/dl [facility] Red Cell Distribution Width 14.2 11.0 - 16.0 % [facility] Platelet Count 310 160 - 400 X10*3/uL [facility] Mean Platelet Volume 10.4 9.4 - 12.3 fL [facility] Neutrophils Percent Auto 65.5 45 - 73 % [facility] Imm Gran Pct Auto 0.5(H) 0.0 - 0.4 % [facility] Lymphocytes Percent Auto 26.5 20 - 40 % [facility] Monocytes Percent Auto 5.8 2 - 11 % [facility] Eosinophils Percent Auto 1.0 0 - 4 % [facility] Basophils Percent Auto 0.7 0 - 2 % [facility] NRBC Pct Auto 0.0 0.0 - 0.2 /100WBC [facility] Neutrophils Absolute Auto 5.8 2.0 - 8.3 x10*3/uL [facility] Imm Gran Abs Auto 0.04(H) 0.00 - 0.03 X10*3/uL [facility] Lymphocytes Absolute Auto 2.3 1.2 - 4.9 X10*3/uL [facility] Monocytes Absolute Auto 0.5 0.1 - 1.2 X10*3/uL [facility] Eosinophils Absolute Auto 0.1 0.0 - 0.4 X10*3/uL [facility] Basophils Absolute Auto 0.1 0.0 - 0.2 X10*3/uL [facility] NRBC Abs Auto 0.000 0.0 - 0.012 X10*3/uL [facility] Blood Venous blood specimen / Unknown 07/12/2025 9:52 AM EST 07/12/2025 2:06 PM EST Brynn Parmar MD LAB BLOOD ORDERABLES Final Re sult Performing Organization Address [facility] Co de Phone Number [facility] [address] [place] [phone] * (ABNORMAL) Iron And Total Iron Binding Capacity (07/12/2025 9:52 AM EST) Iron 35 30 - 160 mcg/dL [facility] Total Iron Binding Capacity 359 228 - 428 mcg/dL [facility] Percent Iron Saturation 10(L) 15 - 50 % [facility] Unsaturated Iron Binding 324 ug/dL [facility] Blood Venous blood specimen / Unknown 07/12/2025 9:52 AM EST 07/12/2025 2:06 PM EST Brynn Parmar MD LAB BLOOD ORDERABLES Final Re sult Performing Organization Address [facility] de Phone Number [facility] [address] [place] [phone] * Prothrombin Time-INR (07/12/2025 9:52 AM EST) Prothrombin Time 11.5 10.9 - 12.4 SEC [facility] INTERNATIONAL NORM RATIO 1.0 0.9 - 1.1 [facility] Comment:INTERNATIONAL NORMAL IZED RATIO (INR) REFERENCE RANGES Reference RangeFor patients not on anticoagulant therapy: 0.9 - 1.1INR ranges for oral anticoagulanttherapy:For prevention and treatment of venous thrombosis and pulmonary embolism: 2.0 - 3.0For acute myocardial infarction with aspirin therapy: 2.0 - 3.0For acute myocardial infarction without aspirin therapy: 3.0 - 4.0For patients with mechanical prosthetic heart valves: 2.5 - 3.5 Blood Venous blood specimen / Unknown 07/12/2025 9:52 AM EST 07/12/2025 2:06 PM EST Brynn Parmar MD LAB BLOOD ORDERABLES Final Re sult Performing Organization Address [facility] Phone Number [facility] [address] [place] [phone] * Ferritin (07/12/2025 9:52 AM EST) Ferritin 15 10 - 250 ng/mL [facility] Blood Venous blood specimen / Unknown 07/12/2025 9:52 AM EST 07/12/2025 2:06 PM EST Brynn Parmar MD LAB BLOOD ORDERABLES Final Re sult Performing Organization Address [facility] Phone Number [facility] [address] [place] [phone] * Hepatic Function Panel (07/12/2025 9:52 AM EST) Bilirubin, Total 0.2 0.0 - 1.0 mg/dL [facility] Bilirubin, Direct <0.2 0.0 - 0.5 mg/dL [facility] Aspartate Amino Transferase 26 5 - 31 U/L [facility] Alanine Aminotransferase 18 0 - 31 U/L [facility] Total Protein 7.4 6.5 - 8.0 g/dL [facility] Albumin Level 4.6 3.5 - 5.0 g/dL [facility] Alkaline Phosphatase 83 39 - 117 U/L [facility] Blood Venous blood specimen / Unknown 07/12/2025 9:52 AM EST 07/12/2025 2:06 PM EST Brynn Parmar MD LAB BLOOD ORDERABLES Final Re sult Performing Organization Address City/[facility]/ZIP Co de Phone Number [facility] [address] [place] [phone] * Vitamin D, 25-Hydroxy, Total, Immunoassay (05/05/2025 9:59 AM EDT) Vitamin D 25-OH Total 45.9 >30 ng/mL [facility] Comment: Health Based Reference Values*< 20 ng/mL [id number] ng/mL Insufficient> 30 ng/mL Sufficient*Indira CULVER. N [...] ORDERABLES Final Re sult Performing Organization Address [facility]/ZIP Co de Phone Number [facility] [address] [place] [phone] * RPR (Monitor) with Reflex to??Titer (05/05/2025 9:59 AM EDT) RPR (Monitor) w/Refl Titer NON-REACTI VE NON-REACT IGNACIO [facility] Comment:THIS TEST WAS PERFOR MED AT:[employer] [address] [id number] BHANDARI MD Rapid Plasma Reagin Ab Titer TNP [facility] Blood Venous blood specimen / Unknown 05/05/2025 9:59 AM EDT 05/05/2025 2:37 PM EDT us Brynn Parmar MD LAB BLOOD ORDERABLES Final Re sult Performing Organization Address City/[facility]/ZIP Co de Phone Number [facility] [address] [place] [phone] * HIV-1/2 Antigen and Antibodies, Fourth Generation, with Reflexes (05/05/2025 9:59 AM EDT) HIV AB/AG Nonreactive Nonreactive [facility] Comment:HIV-1 p24 Ag and/or HIV-1/HIV-2 Ab not detected.A test result that is nonreactive does not exclude thepossibility of exposure to or infection with HIV-1 and/orHIV-2. Nonreactive results in this assay for individualswith prior exposure to HIV-1 and/or HIV-2 may be due toantigen and antibody levels that are below the limit ofdetection of this assay.The [employer] HIV Ag/Ab Combo assay result andsupplemental assay results should be interpreted inconjunction with the patient's clinical presentation,history and other laboratory results. If the results areinconsistent with clinical evidence, additional testing issuggested to confirm the result. Blood Venous blood specimen / Unknown 05/05/2025 9:59 AM EDT 05/05/2025 2:37 PM EDT us Brynn Parmar MD LAB BLOOD ORDERABLES Final Re sult Performing Organization Address City/[facility]/ZIP Co de Phone Number [facility] [address] [place] [phone] [phone] * (ABNORMAL) Lipid Panel, Standard (05/05/2025 9:59 AM EDT) Triglycerides 291(H) <150 mg/dL [facility] Comment:Slight Lipemia.Gerry able Triglyceride: less than 150 mg/dLBorderline High Triglyceride 150-199 mg/dLHigh Triglyceride: 200-499 mg/dLVery High Triglyceride: greater than or equal to 5OO mg/dL Cholesterol 160 <200 mg/dL [facility] Comment:Desirable Cholestero l: less than 200 mg/dLBorderline High Cholesterol: 200-239 mg/dLHigh Cholesterol: greater than 239 mg/dL LDL Cholesterol Calculated 66 <100 mg/dL [facility] Comment:Desirable LDL: less than 100 mg/dLNear Optimal/Above Optimal LDL: 110- 129 mg/dLBorderline High LDL: 130-159 mg/dLHigh LDL: 160-189 mg/dLVery High LDL: greater than or equal to 190 mg/dL HDL Cholesterol 36(L) >40 mg/dL [facility] Comment:Desirable HDL: great er than 40 mg/dL Note: This HDL assay may give artificially low results in patients with liver disease. Blood Venous blood specimen / Unknown 05/05/2025 9:59 AM EDT 05/05/2025 2:37 PM EDT us Brynn Parmar MD LAB BLOOD ORDERABLES Final Re sult [facility] [address] [place] [address] [phone] * (ABNORMAL) Comprehensive Metabolic Panel (05/05/2025 9:59 AM EDT) Sodium 139 135 - 145 mmol/L [facility] Potassium 3.9 3.3 - 5.1 mmol/L [facility] Chloride 105 96 - 108 mmol/L [facility] Carbon Dioxide 26 22 - 29 mmol/L [facility] Anion Gap 12 12 - 20 [facility] Urea Nitrogen (BUN) 8(L) 9 - 16 mg/dL [facility] Creatinine, Serum 0.67 0.5 - 1.4 mg/dL [facility] Estimated Glomerular Filt Rate >60 [facility] Comment:Chronic Kidney Disea se: Estimated GFR < 60 mL/min/[id number] Kidney Disease: Estimated GFR < 15 mL/min/1.73m2 Glucose 89 60 - 115 mg/dL [facility] Calcium 9.4 8.4 - 10.2 mg/dL [facility] Bilirubin, Total 0.3 0.0 - 1.0 mg/dL [facility] Aspartate Amino Transferase 42(H) 5 - 31 U/L [facility] Alanine Aminotransferase 17 0 - 31 U/L [facility] Total Protein 7.9 6.5 - 8.0 g/dL [facility] Albumin Level 4.6 3.5 - 5.0 g/dL [facility] Alkaline Phosphatase 85 39 - 117 U/L [facility] Blood Venous blood specimen / Unknown 05/05/2025 9:59 AM EDT 05/05/2025 2:37 PM EDT us Brynn Parmar MD LAB BLOOD ORDERABLES Final Re sult [facility] [address] [place] [phone] * Vitamin B12 (Cobalamin) and Folate Panel, Serum (05/05/2025 9:54 AM EDT) Vitamin B12 268 200 - 900 pg/mL [facility] Comment:NORMAL 200-900 PG/ML INDETERMINATE 160-199 PG/ML DEFICIENT < 160 PG/ML Folate 6.2 > or = 4.0 ng/mL [facility] Comment:Reference Values:> o r = [...] ORDERABLES Final Re sult Performing Organization Address [facility]/ZIP Co de Phone Number [facility] [address] [place] [phone] * Lyme Disease Ab with Reflex to Blot (IgG, IgM) (05/05/2025 9:51 AM EDT) Lyme Antibody Screen <0.90 index [facility] Comment:Index Interpretation ----- < 0.90 [...] when erythemamigrans is apparent.THIS TEST WAS PERFORMED AT:[employer] [address] [phone] BHANDARI MD Lyme Blot TNP [facility] 05/05/2025 9:51 AM EDT 05/05/2025 2:37 PM EDT Brynn Parmar MD LAB BLOOD ORDERABLES Final Re sult Performing Organization Address City/[facility]/ZIP Co de Phone Number [facility] [address] [place] [phone] * BI US Breast Limited Left (08/13/2024 1:15 PM EST) Anatomical Region Laterality Modality Breast Left Ultrasound 08/13/2024 1:15 PM EST Narrative 08/13/2024 2:50 PM EST [facility] [address] [place] [address] Ultrasound Report Signed Patient: Radha Rodarte MR#: [id number] 62 : 1985 Acct:[id number] Age/Sex: 38 / F ADM Date: 08/13/24 Loc: HO.MAMMO Attending Dr: Jah Dejesus MD Ordering Physician: Jah Root MD Date of Service: 08/13/24 Procedure(s): US breast LT limited mamm only Accession Number(s): [id number] cc: Jah Root MD EXAMINATION: MM DIAGNOSTIC [...] by: Amanda Santana DO 08/13/2024 02:47 PM [facility] Dictated By: Amanda Santana DO Signed By: <Electronically signed by Amanda Santana DO in OV> 08/13/24 1447 DD/ 1315 TD/TT: 08/13/24 1430 [employer] Pain[employer] Supervisor: Procedure Note Donotuseinterpreter, Image - 08/13/2024 [place] [facility] [address] [place], [place] [address] Ultrasound Report Signed Patient: Radha Rodarte DMR#: [id number] 62 : 1985Acct:[id number] Age/Sex: 38 / FADM Date: 08/13/24 Loc: HO.MAMMO Attending Dr: Jah Dejesus MD Ordering Physician: Jah Root MD Date of Service: 08/13/24 Procedure(s): US breast LT limited mamm only Accession Number(s): [id number] cc: Jah Root MD EXAMINATION: MM DIAGNOSTIC [...] by: Amanda Santana DO 08/13/2024 02:47 PM [facility] Dictated By: Amanda Santana DO Signed By: <Electronically signed by Amanda Santana DO in OV> 08/13/24 1447 DD/ 1315 TD/TT: 08/13/24 1430 [employer] Pain[employer] Supervisor: Jah Dejesus MD [facility] PROCEDURES Edited Result - Final * HEPATITIS C AB W/REFL TO HCV RNA, QN, PCR (07/06/2021 3:02 PM EDT) HEPATITIS C ANTIBODY NON-REACT IGNACIO NON-REACT IGNACIO [facility] INDEX 0.02 <1.00 [facility] Comment: HCV antibody was non-reactive. There is no laboratory evidence of HCV infection. In most cases, no further action is required. However, if recent HCV exposure is suspected, a test for HCV RNA (test code 27933) is suggested. For additional information please refer to http://[employer]/faq/BGE90i9 (This link is being provided for informational/ educational purposes only.) 07/06/2021 3:02 PM EDT Jah Dejesus MD HISTORICAL/NON ORD ERABLE LABS Final Result [facility] [address] * HM PAP/HPV (04/14/2020 12:00 AM EDT) Pap Smear 1. NILM 1. NILM HPV Undetected Undetected, Indeterminate , Quantitative, Not Detected Historical Provider HEALTH MAINTENANCE Edited Result - Final from Last 3 Months or Most Recently Relevant to Health Maintenance Insurance [facility] 3 Care Teams Functional Architect Relationship Specialty Start Date End Date Brynn Parmar MD [address] [place] [phone] PCP - General Family Medicine 05/05/25 Raquel Santos Psychiatrist Psychiatry 09/09/19 Paige Therapist 05/05/25 Marilu Sheffield Consulting Physician Hematology 09/09/22 Waldo Kerr Consulting Physician Gastroenterology 07/10/24
--- OUTSIDE RECORDS SUMMARY | 2025-07-20 16:06 | XMS_ITS | Encounter Summary ---
Author Organization [employer] Address [address] [facility] [address] [place] [address] Care Team Providers Care Coal Dumping Equipment Operator Name Role Phone Jah Root MD Primary Care Prov ider Brynn Parmar MD Primary Care Provider [phone] Reason for Visit * Reason Onset Date Comments Results 03/10/2024 Encounter Details Date Type Department Care Team (Late st Contact Info) Description 03/10/2024 Telephone [facility] MEDICINE [address] [place] [address] Jah Root MD [address] [place], [place] [phone] Results Social History Tobacco Use Types Packs/Day [...] to ordering provider to review and advise CHC Team Nurses. TC from pt requesting call back regarding Results. Type of results: Labs Date when done: Around 2 weeks ago Facility: [facility] Labs * Telephone Encounter - Miguel Davalos - 03/10/2024 10:15 AM EDT TC from pt requesting call back regarding Results. Type of results: Labs Date when done: Around 2 weeks ago Facility: [facility] Labs documented in this encounter Plan of Treatment Not on file documented as of this encounter Visit Diagnoses Not on filedocumented in this encounter Additional Health Concerns Assessment Noted Time PHQ-9 Depression Total Score: 8 10/30/19 24 9:42 AM EST documented as of this encounter Care Teams Coal Dumping Equipment Operator Relationship Specialty Start Date End Date Jah Root MD [address] [place] [id number] PCP - General Internal Medicine 01/26/20 05/04/25 Brynn Parmar MD [address] [place] [address] PCP - General Family Medicine 05/05/25 Raquel Santos Psychiatrist Psychiatry 09/09/19 Paige Therapist 05/05/25 Marilu Sheffield Consulting Physician Hematology 09/09/22 Waldo Kerr Consulting Physician Gastroenterology 07/10/24 documented as of this encounter
== END 2025-07-20 14:25 | disposition home or self-care (01) ==
LOC: HO.LNP 14:24
PROVIDERS: Visit Provider Family Medicine
DX: Z12.4 Encounter for screening for malignant neoplasm of cervix (principal); Z11.51 Encounter for screening for human papillomavirus (HPV)
CPT/HCPCS: 87626; 88175

== ENCOUNTER 2025-08-12 10:28 | Outpatient (AMB) | payer OTHER, SELFPAY ==
--- NOTE | 2025-08-12 10:33 | MHC.OFFVIS ---
Vital Signs 08/12/25 10:36 Height 5 ft 3 in Weight 163 lb BMI 28.9 BP 130/72 Intake Visit Reasons: AUB Sales And Service Officer Required: Yes Sales And Service Officer Language: Irish Information Interpreted: non-clinical & clinical Water Resource Engineering Specialist: Water Resource Engineering Specialist Present (Aixa VILLEGAS) Accompanied by: Self / Same As Patient Allergies No Known Allergies Allergy (Verified 08/12/25 10:39) HPI Comments Details: The patient is presenting c/o irregular bleeding associated with passage of blood clots and abdominal cramping. it started few months ago and is getting worse no other associated symptoms. Last Co testing in 08/03 was negative Last mammogram in 09/01 was BI-RADS 1 [facility] Medical History Post-cholecystectomy syndrome Hemorrhoids with complication Dysphagia Candidiasis of mouth and esophagus Odynophagia Surgical History History of laparoscopic cholecystectomy (02/28/22) Hx of laparoscopy History of tonsillectomy History of esophagogastroduodenoscopy (EGD) Hx of colonoscopy Family History Father CVD (cardiovascular disease) Colon polyps Hypercholesteremia Diabetes Mother Thyroid condition CVD (cardiovascular disease) Fibromyalgia Heart problem Hypertension Sister HIV (human immunodeficiency virus infection) Brother No problems noted. Son No problems noted. Son No problems noted. 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 Sexually active: No Sexual orientation: Straight/Heterosexual Gender identity: Female Female Reproductive History Menstrual Age of Menarche: 12 Duration of menses: 8-10 days Date of last menstrual period: 06/09/25 control method: none Total pregnancies: 3 Full term: 3 Number of Living Children: 3 Review of Systems Const All systems reviewed & are unremarkable except as noted in HPI and below Card Reports as per HPI Resp Reports as per HPI GI Reports as per HPI and Reports no additional complaints Reports as per HPI Physical Exam Vital Signs: Last Vital Signs BP 130/72 08/12/25 10:36 BMI result Body Mass Index 28.9 Const General: cooperative, healthy appearing and comfortable Chest Chest palpation & inspection: normal inspection of the chest and normal palpation of entire chest wall Breast/axilla inspection: normal inspection of the breasts and normal inspection of the axillae Breast/axilla palpation: palpation of the breasts abnormal (R breast lump at 10 , 2 cm from nipple 4 cm in size, left breast wnl), normal palpation of the axillae and no axillary lymphadenopathy Resp Effort & Inspection: normal respiratory effort Auscultation: clear to auscultation bilaterally Percussion: percussion normal Cardio Palpation: normal PMI Rate: regular rate Rhythm: regular rhythm Heart sounds: no murmurs and no rubs Peripheral pulses: Peripheral pulses 2+ throughout GI Inspection: Yes normal to inspection Palpation (GI): Soft to palpation, nontender, no guarding, not rigid and No hepatosplenomegaly present Percussion: Yes normal to percussion Auscultation: normal bowel sounds Rectal Exam - Female: deferred General: Yes bladder normal to palpation External Female Exam: No lesion Speculum Exam - Vagina: normal appearance of the vagina, normal palpation, normal vaginal discharge and not erythematous Speculum Exam - Cervix: normal appearance of the cervix and normal palpation Bimanual exam- vagina & uterus: normal bimanual exam, normal palpation, uterine size normal, bladder normal to palpation, consistency normal and normal palpation Bimanual Exam- Adnexa, other: normal adnexae, no masses and no tenderness Results AMB Test Urine AMB Test Urine Negative Last Edit by Aixa Rubin CMA on 08/12/25 10:57 Assessment & Plan Assessment & Plan (1) Abnormal uterine bleeding: Comment: 2 cm from nipple 4 cm in size Code(s): N93.9 - Abnormal uterine and vaginal bleeding, unspecified Category: Medical Plan: GC and chlamydia taken CBC, TSH, HCG, and pelvic ultrasound ordered. Discussed with the patient the different causes of abnormal bleeding including thyroid disorders, uterine and ovarian pathology, endometrial hyperplasia, carcinoma and other potential causes. Discussed with the patient the work up including CBC (to r/o anemia), TSH, pelvic Ultrasound, endometrial biopsy to r/o endometrial pathology. All questions answered and the patient verbalized understanding. Instructed the patient to schedule an appointment for an endometrial biopsy in 2 weeks. (2) Breast lump on right side at 10 o'clock position: Code(s): N63.11 - Unspecified lump in the right breast, upper outer quadrant Category: Medical Plan: Discussed with the patient the finding on Breast exam (breast lump) .The differential diagnosis includes but not limited to lump/cyst/pre cancer/cancer or dense breast tissue. The work up includes breast US and diagnostic mammogram and referred the patient for surgical breast consult. Orders: Orders AMB HCG Urine Test Today Z32.02 - Encounter for test, result negative US pelvic and transvaginal Today N93.9 - Abnormal uterine and vaginal bleeding, unspecified MM tomosynthesis diagnostic BI Today N63.11 - Unspecified lump in the right breast, upper outer quadrant US breast RT limited Today N63.11 - Unspecified lump in the right breast, upper outer quadrant TSH reflex Free T4 Today N93.9 - Abnormal uterine and vaginal bleeding, unspecified Complete Blood Count no Diff Today N93.9 - Abnormal uterine and vaginal bleeding, unspecified HCG Quantitative Today N93.9 - Abnormal uterine and vaginal bleeding, unspecified Referrals General Surgery Referral N63.11 - Unspecified lump in the right breast, upper outer quadrant Coding Level of Care Code New Pt Level 3 (07252) Diagnoses Abnormal uterine bleeding N93.9 Breast lump on right side at 10 o'clock position N63.11
[2025-08-12 10:36] VITALS: BP 130/72; BMI 28.9
--- OUTSIDE RECORDS SUMMARY | 2025-08-12 12:52 | XMS_ITS | Encounter Summary ---
Author Organization [employer] Address [address] [facility] [address] [place] [address] Care Team Providers Care Digital Media Sales Consultant Name Role Phone Brynn Parmar MD Primary Care Provider [phone] Reason for Visit * Reason Comments Med Change Request Encounter Details Date Type Department Care Team ([facility] st Contact Info) Description 07/12/2025 Refill [facility] MED & PEDS [address] [place], [place] [phone] Brynn Parmar MD [address] [place], [place] [phone] Social History Tobacco Use Types Packs/Day Years [...] as of this encounter Care Teams Digital Media Sales Consultant Relationship Specialty Start Date End Date Brynn Parmar MD [address] [place] [id number] PCP - General Family Medicine 05/05/25 Raquel Santos Psychiatrist Psychiatry 09/09/19 Paige Therapist 05/05/25 Marilu Sheffield Consulting Physician Hematology 09/09/22 Waldo Kerr Consulting Physician Gastroenterology 07/10/24 documented as of this encounter
--- OUTSIDE RECORDS SUMMARY | 2025-08-12 12:52 | XMS_ITS | Encounter Summary ---
Author Organization [employer] Address [address] [facility] [address] [place] [address] Care Team Providers Care Job Estimator Name Role Phone Brynn Parmar MD Primary Care Provider [phone] Reason for Visit * Reason Onset Date Comments new referral 07/26/2025 Encounter Details Date Type Department Care Team ([facility] st Contact Info) Description 07/26/2025 Telephone [facility] MEDICINE [address] [place] [address] Brynn Parmar MD [address] [place], [place] [phone] new referral Social History Tobacco Use Types Packs/Day Years [...] * Telephone Encounter - Aracely Huertas - 07/26/2025 11:16 AM EST TC from pt requesting new referral : DATE: / TIME: / Address: [address] [place] [id number] Visits: / Facility Name: [facility] PREPARATION SUPERVISOR & Midwifery Type of Specialist: OBGYN DX: / Provider : / Provider NPI : / Facility NPI: / Phone # : [phone] Fax #: / Pt stated [facility] doesn't take her insurance PCP DR. Parmar documented in this encounter Plan of Treatment Not on file documented as of this encounter Visit Diagnoses Not on filedocumented in this encounter Additional Health Concerns Assessment Noted Time PHQ-9 Depression Total Score: 15 025 8:58 AM EDT documented as of this encounter Care Teams Job Estimator Relationship Specialty Start Date End Date Brynn Parmar MD [address] [place] [id number] PCP - General Family Medicine 05/05/25 Raquel Santos Psychiatrist Psychiatry 09/09/19 Paige Therapist 05/05/25 Marilu Sheffield Consulting Physician Hematology 09/09/22 Waldo Kerr Consulting Physician Gastroenterology 07/10/24 documented as of this encounter
--- OUTSIDE RECORDS SUMMARY | 2025-08-12 12:52 | XMS_ITS | Clinical Summary ---
Author Organization [employer] Address [address] [facility] 7t [place] [address] Care Team Providers Care Television Inspector Name Role Phone Brynn Parmar MD Primary Care Provider [phone] Allergies No known active allergies Medications clonazePAM [...] BETH 1 MAYANK RUSH AL DORENE 05/20/20 25 Active norethindrone (Aygestin) 5 MG tablet Take 5 mg by mouth Once per day. Active prazosin (Minipress) 2 MG capsule take 1 capsule by mouth everyday at bedtime 05/21/20 Active ferrous gluconate (Fergon) 324 (38 Fe) MG tablet Take 1 tablet (324 mg) by mouth with breakfast. 90 tablet 1 07/14/20 25 Active medroxyPROGESTE Clyde (Provera) 10 MG tablet Take 2 tablets (20 mg) by mouth 3 times daily for 7 days. 42 tablet 07/14/20 25 Active medroxyPROGESTE Clyde (Provera) 10 MG tablet Take 2 tablets (20 mg) by mouth 3 times daily for 7 days. 42 tablet 07/12/20 25 025 Discontinued(Re order (will not trigger notification to Pharmacy)) Active Problems Problem Noted Date Diagnosed Date [...] Plan (07/21/2024 6:22 PM EST): Followed by ob-automation control technician EN positive 07/21/2024 Biliary dyskinesia 07/21/2024 Chronic [...] total, feeling much better, follow up with ob-automation control technician History of gestational diabetes mellitus 022 Neck [...] Diagnosed Date Resolved Date Abdominal cramping 07/21/[address] scan, gastrointestinal tract 07/21/2024 05/05/2025 [...] hgb was 11.6, will place referal to ob-automation control technician, Anemia 08/03/2022 05/05/2025 Overview (07/21/2024): Hgb 10.5, [...] Encounters Date Type Department Care Team Description 07/26/[address] [address] Brynn Parmar MD new referral 07/21/[address] [address] Brynn Parmar MD new referral 07/20/2025 9:40 AM EST Procedure Visit [facility] [address] [place] [address] Brynn Parmar MD Cervical cancer screening (Primary Dx); Mass of upper inner quadrant of right breast 07/20/2025 Travel 07/14/2025 Telephone [facility] [address] [place] [address] Brynn Parmar MD Results; returning call 07/13/[address] [address] Brynn Parmar MD Prior Authorization 07/12/2025 9:15 AM EST Office Visit [facility] [address] [place] [address] Brynn Parmar MD Abnormal uterine bleeding (Primary Dx); Anemia, unspecified type; Transaminitis; Memory deficit; Immunizations incomplete 07/12/2025 Refill [facility] [address] [place] [address] Brynn Parmar MD 07/12/2025 Travel 06/30/[address] [address] Brynn Parmar MD Nurse Triage 05/28/2025 Telephone [facility] [address] [place] [phone] Brynn Parmar MD Lab Results from Last 3 Months Immunizations Immunization Administration [...] (3 - 3-dose series) 09/21/2011 06/29/2011, 11/28/2007 Depression Monitoring 11/05/2025 05/05/2025, 025 Hepatitis A Vaccines (2 of 2 - Risk 2-dose series) 11/05/2025 05/05/2025 Alcohol/Substance Use Screening 12/09/2025 12/09/2024 SDOH Screening 12/09/2025 12/09/2024 Influenza Vaccine (#1) 2026 6, 05/30/2015, 07/28/2012 Postponed from 05/10/2025 (Patient Refused) Disability Screening 05/05/2026 05/05/2025 COVID-19 Vaccine ( season) 2026 10/06/2021, 01/18/2021, 12/21/2020 Postponed from 05/10/2025 (Patient Refused) Tobacco Screening 07/20/2026 07/20/2025 Mammogram 08/25/2026 08/25/2024, 1201/2024, 08/13/2024, Additional history exists HPV/Cotest 07/19/2030 07/19/2025, 0 02/2020, 12/15/2018 Cervical Cancer Screening 07/20/2030 Pap Smear 07/20/2030 07/20/2025, 0 02/2020, 12/15/2018 DTaP/Tdap/Td Vaccines (7 - Td or Tdap) [...] Procedure Name Priority Date/Time Associated Diagnosis Comments PAP SMEAR Routine 07/20/2025 12:00 AM EST Cervical cancer screening HPV DNA, LOW/HIGH RISK Routine 07/19/2025 12:40 PM EST Cervical cancer screening HEPATIC FUNCTION PANEL Routine 07/12/2025 9:52 AM EST Transaminitis IRON AND TOTAL IRON BINDING CAPACITY Routine 07/12/2025 9:52 AM EST Anemia, unspecified type FERRITIN Routine 07/12/2025 9:52 AM EST Anemia, unspecified type PROTHROMBIN TIME-INR Routine 07/12/2025 9:52 AM EST Abnormal uterine bleeding TSH W/REFLEX TO FT4 Routine 07/12/2025 9 :52 AM EST Abnormal uterine bleeding CBC WITH AUTO DIFFERENTIAL Routine 07/12/2025 9:52 AM EST Abnormal uterine bleeding HIV 1/2 ANTIGEN/ANTIBODY, FOURTH GENERATION W/RFL Routine 05/05/2025 9:59 AM EDT Gradual-onset memory impairment BI US BREAST LIMITED LEFT Routine 08/13/2024 1:15 PM EST ZZZ HISTORICAL HEPATITIS C AB W/REFL TO HCV RNA, QN, PCR Routine 07/06/2021 3:02 PM EDT from Last 3 Months or Most Recently Relevant to Health Maintenance Results * Pap Smear (07/20/2025 12:00 AM EST) Swab Cervical swab / Unknown 07/20/2025 07/21/2025 12:40 PM EST Narrative [facility] - 07/26/2025 1:51 PM EST ----- ------- Name: Radha Rodarte Age/Sex: 39/F : 1985 Unit#: [id number] Attend Dr: Brynn Parmar MD Re07/20/25 Status: DEP REF Location: [facility] Disch: ----- ------- SPEC : [id number] RECD: 07/21/25-1240 STATUS: MELBA PEREYRALisa NUM: [id number] BERT: 07/20/25-0000 [facility] DR: Brynn Parmar MD ENTERED: 07/21/25131 SP TYPE: Pap Smr OTHR DR: ORDERED: Pap Smear Interpretation Satisfactory for evaluation. Negative for intraepithelial lesion or malignancy. Abundant blood. HPV High Risk: Negative HPV Genotyping 16: Negative HPV Genotyping 18: Negative Clinical Information LMP: Unk Previous PAP test: Other surgery: Other history: Material Received ThinPrep-Cervix ----- ------- Signed (signature on file) LESLEE Curran (ASCP) 07/26/25 1351 ----- ------- END OF REPORT Brynn Parmar MD LAB CYTOLOGY ORDERABLES Final Result Performing Organization Address [facility]/ZIP Co de Phone Number [facility] [address] [place] [phone] * HPV High Risk with Reflex to Subtypes (07/19/2025 12:40 PM EST) HPV High Risk Negative Negative [facility] HPV Genotype 16 Negative Negative [facility] HPV Genotype 18 Negative Negative [facility] Comment:HPV testing performe d at [facility] (CLIA#[id number]), [address] [place] [address].Testing for HPV was performed using the [employer] Fever0system. The presence of HPV in the female genital tract isassociated with a number of diseases, including cervicalcarcinoma. The HPV DNA high risk pool tests for HPV 31, 33,35, 39, 45, 51, 52, 56, 58, 59, 66 and 68. The testing forHPV 16 and 18 genotypes has also been performed. A positiveresult indicates detection of nucleic acid sequences fromone or more subtypes, whereas a negative result indicatessuch sequences were not detected. Pap Vial 07/19/2025 12:4 0 PM EST 07/26/2025 2:12 PM EST Brynn Parmar MD LAB BLOOD ORDERABLES Final Re sult Performing Organization Address [facility] Co de Phone Number [facility] [address] [place] [phone] * TSH W/Reflex to FT4 (07/12/2025 9:52 AM EST) TSH reflex Free T4 1.79 0.32 - 4.0 uIU/mL [facility] Blood Venous blood specimen / Unknown 07/12/2025 9:52 AM EST 07/12/2025 2:06 PM EST us Brynn Parmar MD LAB BLOOD ORDERABLES Final Re sult [facility] [address] [place] [address] [phone] * (ABNORMAL) CBC auto differential (07/12/2025 9:52 AM EST) White Blood Count 8.8 4.8 - 10.8 X10*3/uL [facility] Red Blood Count 4.56 4.20 - 5.50 X10*6/uL [facility] Hemoglobin 11.6(L) 12.0 - 16.0 g/dl [facility] Hematocrit 36.8(L) 37.0 - 47.0 % [facility] Mean Corpuscular Volume 80.7 80.0 - 98.0 fL [facility] Mean Corpuscular Hemoglobin 25.4(L) 27.0 - 33.0 pg [facility] Mean Corpuscular HGB Conc 31.5 31.0 - 35.0 g/dl [facility] Red Cell Distribution Width 14.2 11.0 - 16.0 % [facility] Platelet Count 310 160 - 400 X10*3/uL [facility] Mean Platelet Volume 10.4 9.4 - 12.3 fL [facility] Neutrophils Percent Auto 65.5 45 - 73 % [facility] Imm Gran Pct Auto 0.5(H) 0.0 - 0.4 % [facility] Lymphocytes Percent Auto 26.5 20 - 40 % [facility] Monocytes Percent Auto 5.8 2 - 11 % [facility] Eosinophils Percent Auto 1.0 0 - 4 % [facility] Basophils Percent Auto 0.7 0 - 2 % [facility] NRBC Pct Auto 0.0 0.0 - 0.2 /100WBC [facility] Neutrophils Absolute Auto 5.8 2.0 - 8.3 x10*3/uL [facility] Imm Gran Abs Auto 0.04(H) 0.00 - 0.03 X10*3/uL [facility] Lymphocytes Absolute Auto 2.3 1.2 - 4.9 X10*3/uL [facility] Monocytes Absolute Auto 0.5 0.1 - 1.2 X10*3/uL [facility] Eosinophils Absolute Auto 0.1 0.0 - 0.4 X10*3/uL [facility] Basophils Absolute Auto 0.1 0.0 - 0.2 X10*3/uL [facility] NRBC Abs Auto 0.000 0.0 - 0.012 X10*3/uL [facility] Blood Venous blood specimen / Unknown 07/12/2025 9:52 AM EST 07/12/2025 2:06 PM EST Brynn Parmar MD LAB BLOOD ORDERABLES Final Re sult [facility] [address] [place] [phone] * (ABNORMAL) Iron And Total Iron Binding Capacity (07/12/2025 9:52 AM EST) Iron 35 30 - 160 mcg/dL [facility] Total Iron Binding Capacity 359 228 - 428 mcg/dL [facility] Percent Iron Saturation 10(L) 15 - 50 % [facility] Unsaturated Iron Binding 324 ug/dL [facility] Blood Venous blood specimen / Unknown 07/12/2025 9:52 AM EST 07/12/2025 2:06 PM EST Brynn Parmar MD LAB BLOOD ORDERABLES Final Re sult Performing Organization Address City/[facility]/ZIP Co de Phone Number [facility] [address] [place] [phone] * Prothrombin Time-INR (07/12/2025 9:52 AM EST) Pathologist [facility] Prothrombin Time 11.5 10.9 - 12.4 SEC [facility] INTERNATIONAL NORM RATIO 1.0 0.9 - 1.1 [facility] Comment:INTERNATIONAL NORMAL IZED RATIO (INR) REFERENCE [...] ORDERABLES Final Re sult Performing Organization Address City/[facility] Co de Phone Number [facility] [address] [place] [phone] * Ferritin (07/12/2025 9:52 AM EST) Pathologist [facility] Ferritin 15 10 - 250 ng/mL [facility] Blood Venous blood specimen / Unknown 07/12/2025 9:52 AM EST 07/12/2025 2:06 PM EST us Brynn Parmar MD LAB BLOOD ORDERABLES Final Re sult Performing Organization Address [facility] Co de Phone Number [facility] [address] [place] [phone] * Hepatic Function Panel (07/12/2025 9:52 AM EST) Pathologist [facility] Bilirubin, Total 0.2 0.0 - 1.0 mg/dL [facility] Bilirubin, Direct <0.2 0.0 - 0.5 mg/dL [facility] Aspartate Amino Transferase 26 5 - 31 U/L [facility] Alanine Aminotransferase 18 0 - 31 U/L [facility] Total Protein 7.4 6.5 - 8.0 g/dL [facility] Albumin Level 4.6 3.5 - 5.0 g/dL [facility] Alkaline Phosphatase 83 39 - 117 U/L [facility] Blood Venous blood specimen / Unknown 07/12/2025 9:52 AM EST 07/12/2025 2:06 PM EST us Brynn Parmar MD LAB BLOOD ORDERABLES Final Re sult Performing Organization Address City/[facility]/ZIP Co de Phone Number [facility] [address] [place] [phone] * HIV-1/2 Antigen and Antibodies, Fourth Generation, with Reflexes (05/05/2025 9:59 AM EDT) HIV AB/AG Nonreactive Nonreactive [facility] Comment:HIV-1 p24 Ag and/or HIV-1/HIV-2 Ab not detected.A test result that is nonreactive does not exclude thepossibility of exposure to or infection with HIV-1 and/orHIV-2. Nonreactive results in this assay for individualswith prior exposure to HIV-1 and/or HIV-2 may be due toantigen and antibody levels that are below the limit ofdetection of this assay.The [employer] HIV Ag/Ab Combo assay result andsupplemental assay results should be interpreted inconjunction with the patient's clinical presentation,history and other laboratory results. If the results areinconsistent with clinical evidence, additional testing issuggested to confirm the result. Blood Venous blood specimen / Unknown 05/05/2025 9:59 AM EDT 05/05/2025 2:37 PM EDT us Brynn Parmar MD LAB BLOOD ORDERABLES Final Re sult [facility] [address] [place] [phone] * BI US Breast Limited Left (08/13/2024 1:15 PM EST) Anatomical Region Laterality Modality Breast Left Ultrasound 08/13/2024 1:15 PM EST Narrative 08/13/2024 2:50 PM EST [facility] [address] [place], [place] [address] Ultrasound Report Signed Patient: Radha Rodarte MR#: [id number] 62 : 1985 Acct:[id number] Age/Sex: 38 / F ADM Date: 08/13/24 Loc: HO.MAMMO Attending Dr: Jah Dejesus MD Ordering Physician: Jah Root MD Date of Service: 08/13/24 Procedure(s): US breast LT limited mamm only Accession Number(s): [id number] cc: Jah Root MD EXAMINATION: MM DIAGNOSTIC [...] 08/13/24 1447 DD/ 1315 TD/TT: 08/13/24 1430 Pig Caster: Procedure Note Donotuseinterpreter, Image - 08/13/[facility] [address] [place] [address] Ultrasound Report Signed Patient: Radha Rodarte DMR#: [id number] 62 : 1985Acct:[id number] Age/Sex: 38 / FADM Date: 08/13/24 Loc: HO.MAMMO Attending Dr: Jah Dejesus MD Ordering Physician: Jah Root MD Date of Service: 08/13/24 Procedure(s): US breast LT limited mamm only Accession Number(s): [id number] cc: Jah Root MD EXAMINATION: MM DIAGNOSTIC [...] 08/13/24 1447 DD/ 1315 TD/TT: 08/13/24 1430 Pig Caster: Jah Dejesus MD [facility] US PROCEDURES Edited Result - Final * HEPATITIS C AB W/REFL TO HCV RNA, QN, PCR (07/06/2021 3:02 PM EDT) HEPATITIS C ANTIBODY NON-REACT IGNACIO NON-REACT IGNACIO [facility] INDEX 0.02 <1.00 [facility] Comment: HCV antibody was non-reactive. There is no laboratory evidence of HCV infection. In most cases, no further action is required. However, if recent HCV exposure is suspected, a test for HCV RNA (test code 57033) is suggested. For additional information please refer to http://education.Lucidux/faq/HTC72f4 (This link is being provided for informational/ educational purposes only.) 07/06/2021 3:02 PM EDT Jah Dejesus MD HISTORICAL/NON ORD ERABLE LABS Final Result [facility] [address] from Last 3 Months or Most Recently Relevant to Health Maintenance Insurance [facility] 3 Care Teams Television Inspector Relationship Specialty Start Date End Date Brynn Parmar MD [address] [place] [phone] PCP - General Family Medicine 05/05/25 Raquel Santos Psychiatrist Psychiatry 09/09/19 Paige Therapist 05/05/25 Marilu Sheffield Consulting Physician Hematology 09/09/22 Waldo Kerr Consulting Physician Gastroenterology 07/10/24
--- OUTSIDE RECORDS SUMMARY | 2025-08-12 12:52 | XMS_ITS | Clinical Summary ---
Author Organization [facility] Address [address] [place] [address] Phone Care Team Providers Care Inspector Hot Forgings Name Role Phone Jah Root Primary Care [...] Problem Noted Date Diagnosed Date Cerebral meningioma ([facility] V24, [facility] V28) 0 01/14/2025 Assessment & Plan (01/14/2025 [...] Encounters Date Type Department Care Team Description 07/21/2025 Telephone [facility]s [facility] [address] [place] [phone] Brynn Cardona CNM from Last 3 Months Surgical History Surgery Date Site/Laterality Comments TONSILLECTOMY ADENOIDECTOMY, BILATERAL MYRINGOTOMY AND TUBES PROCEDURE: OR TONSILLECTOMY & ADENOIDECTOMY <AGE 11 UTERINE FIBROID [...] Industry Job Start Date Job End Date [employer] Not on file Not on file Not on file Obstetrics History Para Term AB IAB SAB Ectopic Multiple Livin g Live Births 3 3 3 3 3 Date Outcome GA Total Labor Labor/2nd/3rd Weight Sex Type Anes PTL Gemma A1 A5 Name Clin 004 Term 40w 0d 3912 g (138 oz) M Vag-S pont Epidur al N Livin g Complications:None Delivery Location:[facility] 007 Term 40w 0d 3912 g (138 oz) M Vag-S pont None N Livin g Complications:None Delivery Location:[facility] 016 Term 40w 0d 3175 g (112 oz) M Vag-S pont Epidur al N Livin g Complications:None Delivery Location:[facility] Last Filed Vital Signs Vital Sign [...] Care Team (Late st Contact Info) Description 08/17/2025 7:30 AM EST [facility]ointment [facility] [address] [phone] 08/17/2025 9:00 AM EST Appointment [facility] Ultrasound [address] [place] [phone] 08/19/2025 9:30 AM EST Office Visit Obstetrics and Gynecology - [address] [phone] Brynn Cardona, [facility] [address] [place] [phone] 11/04/2025 9:00 AM EST Office Visit Obstetrics and Gynecology - [address] [phone] Brynn Cardona, [facility] [address] [place] [phone] Health Maintenance Due Date Last Done Comments [...] HPV 07/10/2028 07/10/2023 Cholesterol Screening (Lipid Panel) 05/05/2030 05/05/2025, 07/23/2024 DTaP,Tdap,and Td Vaccines (8 - Td or Tdap) 07/21/2034 07/21/2024, 06/29/2011, 03/29/1997, Additional history exists RSV Immunization Adult Patients (1 - 1-dose 75+ series) 12/05/2059 MMR Vaccines Completed 07/10/1990, 04/09/1986 IPV Vaccines Completed 08/09/1992, 09/1985, 04/09/1985, Additional history exists Hepatitis B Vaccines Completed 03/29/1997, 06/02/1996, 04/06/1996 Hepatitis C Screening Completed 08/20/2024, 023 HIV Screening Completed 05/05/2025, 07/06/2021 Hepatitis A Vaccines Aged Out 05/05/2025 No long er eligible based on patient's age to complete this topic HIB Vaccines Aged Out No longer eligi [...] Procedure Name Priority Date/Time Associated Diagnosis Comments MG MAMMO DIGITAL DIAGNOSTIC BILAT Routine 08/25/2024 9:35 AM EST HEPATITIS C ANTIBODY Routine 08/20/2024 2:45 PM EST Encounter for well woman exam with routine gynecological exam Screen for STD (sexually transmitted disease) HM HPV Routine 07/10/2023 from Last 3 Months or Most Recently Relevant to Health Maintenance Results * MG Mammo Digital Diagnostic bilat (08/25/2024 9:35 AM EST) Anatomical Region Laterality Modality Breast Bilateral Mammography Historical Provider MD WALTERS BI PROCEDURES Final R esult * Hepatitis C antibody (08/20/2024 2:45 PM EST) Hepatitis C Antibody Negative Negative LAB CHEMISTRY METHOD 08/20/2024 5:07 PM EST [facility] Blood Venous blood specimen / Unknown Venipuncture / Unknown 08/20/2024 2:45 PM EST 08/20/2024 3:46 PM EST Germaine LOZA LAB BLOOD ORDERABLES Final Re sult [facility] [address] [place] [address], * Cervical Cancer Screening: HPV (07/10/2023) Cervical Cancer Screening: HPV No interpreta tion,abstr acted us Historical Provider MD HEALTH MAINTENANCE Final Result from Last 3 Months or Most Recently Relevant to Health Maintenance Insurance [facility] [employer] Care Teams Inspector Hot Forgings Relationship Specialty Start Date End Date Jah Root [address] [place], [place] PCP - General 04/29/24
--- OUTSIDE RECORDS SUMMARY | 2025-08-12 12:52 | XMS_ITS | Encounter Summary ---
Author Organization [employer] Address [address] [facility] 7t [place] [address] Care Team Providers Care Senior Mechanical Engineer Name Role Phone Jah Root MD Primary Care Prov ider Brynn Parmar MD Primary Care Provider [phone] Reason for Visit * Reason Onset Date Comments Nurse Triage 08/06/2023 Encounter Details Date Type Department Care Team (Late st Contact Info) Description 08/06/2023 Telephone [facility] [address] [place] [address] Jah Root MD [address] [place], [place] [phone] Nurse Triage Social History Tobacco Use Types [...] at lat visit 07/26/23. Per pt did orange picker meclizine and took as instructed but [...] documented as of this encounter Care Teams Senior Mechanical Engineer Relationship Specialty Start Date End Date Jah Root MD [address] [place] [address] PCP - General Internal Medicine 01/26/20 05/04/25 Brynn Parmar MD [address] [place] [address] PCP - General Family Medicine 05/05/25 Raquel Santos Psychiatrist Psychiatry 09/09/19 Paige Therapist 05/05/25 Marilu Sheffield Consulting Physician Hematology 09/09/22 Waldo Kerr Consulting Physician Gastroenterology 07/10/24 documented as of this encounter
--- OUTSIDE RECORDS SUMMARY | 2025-08-12 12:52 | XMS_ITS | Encounter Summary ---
Author Organization [employer] Address [address] [facility] [address]t [place] [address] Care Team Providers Care Revenue Accounting Manager Name Role Phone Jah Root MD Primary Care Prov ider Brynn Parmar MD Primary Care Provider [phone] Reason for Visit * Reason Onset Date Comments Results 09/10/2023 Encounter Details Date Type Department Care Team ([facility] st Contact Info) Description 09/10/2023 Telephone [facility] [address] [place], [place] [phone] Jah Root MD [address] [place], [place] [phone] Results Social History Tobacco Use Types Packs/Day [...] results: Labs Date when done: 08/26/23 Facility: [facility] documented in this encounter Plan of Treatment Not on file documented as of this encounter Visit Diagnoses Not on filedocumented in this encounter Additional Health Concerns Assessment Noted Time PHQ-9 Depression Total Score: 10 023 2:28 PM EST documented as of this encounter Care Teams Revenue Accounting Manager Relationship Specialty Start Date End Date Jah Root MD [address] [place] [address] PCP - General Internal Medicine 01/26/20 05/04/25 Brynn Parmar MD [address] [place] [address] PCP - General Family Medicine 05/05/25 Raquel Santos Psychiatrist Psychiatry 09/09/19 Paige Therapist 05/05/25 Marilu Sheffield Consulting Physician Hematology 09/09/22 Waldo Kerr Consulting Physician Gastroenterology 07/10/24 documented as of this encounter
--- OUTSIDE RECORDS SUMMARY | 2025-08-12 12:52 | XMS_ITS | Encounter Summary ---
Author Organization [employer] Address [address] [facility] [address] [place] [address] Care Team Providers Care Lumber Buyer Name Role Phone Jah Root MD Primary Care Prov ider Brynn Parmar MD Primary Care Provider [phone] Encounter Details Date Type Department Care Team (Late st Contact Info) Description 08/28/2024 Orders Only [facility] [address] [place], [place] [phone] Provider, MD Lalit Social History Tobacco Use [...] is your housing situation today? I have iirneo shaffer 10/30/[address] you [...] documented as of this encounter Care Teams Lumber Buyer Relationship Specialty Start Date End Date Jah Root MD [address] [place] [address] PCP - General Internal Medicine 01/26/20 05/04/25 Brynn Parmar MD [address] [place] [address] PCP - General Family Medicine 05/05/25 Raquel Santos Psychiatrist Psychiatry 09/09/19 Paige Therapist 05/05/25 Marilu Sheffield Consulting Physician Hematology 09/09/22 Waldo Kerr Consulting Physician Gastroenterology 07/10/24 documented as of this encounter
--- OUTSIDE RECORDS SUMMARY | 2025-08-12 12:52 | XMS_ITS | Encounter Summary ---
Author Organization [facility] Address [address] [place] [address] Phone Care Team Providers Care Senior Administrator Support Name Role Phone Jah Root MD Primary Care Prov ider Encounter Details Date Type Department Care Team (Late st Contact Info) Description 04/30/2024 Procedure Pass [facility] Endoscopy Department [address] [place] [id number] Social History Tobacco Use Types Packs/Day Years [...] on filedocumented in this encounter Care Teams Senior Administrator Support Relationship Specialty Start Date End Date Jah Root MD [address] [place] [address] PCP - General Internal Medicine 02/08/22 documented as of this encounter Additional Source Comments The information contained in this document represents components of the legal health record. It is not the complete legal health record.[facility]
--- OUTSIDE RECORDS SUMMARY | 2025-08-12 12:52 | XMS_ITS | Clinical Summary ---
Author Organization [facility] [employer] [facility] Prior to 02/06/25 Address [address] [place] [address] Care Team Providers Care Sorting Machine Attendant Name Role Phone Jah Cobian MD Primary Care Provider [phone] Allergies No known active allergies Medications Medication [...] age to complete this topic Care Teams Sorting Machine Attendant Relationship Specialty Start Date End Date Jah Cobian MD [address] [place] [phone] PCP - General Internal Medicine 04/29/24
--- OUTSIDE RECORDS SUMMARY | 2025-08-12 12:52 | XMS_ITS | Encounter Summary ---
Author Organization [employer] Address [address] [facility] 7t [place] [address] Care Team Providers Care Nursing Surgical Services Director Name Role Phone Jah Root MD Primary Care Prov ider Brynn Parmar MD Primary Care Provider Reason for Visit * Reason Onset Date Comments Change PCP 10/28/2024 Encounter Details Date Type Department Care Team ([facility] st Contact Info) Description 10/28/2024 Telephone [facility] MED & PEDS [address] [place], [place] [phone] Jah Root MD [address] [place], [place] [phone] Change PCP Social History Tobacco Use Types [...] and results were sent to PCP from [facility] to review next steps and has not heard anything. Pt states feels like she needs aprovider who will be more responsive and available. Pt prefers to stay at the [facility] location. Pt infor med of limited availability [...] documented as of this encounter Care Teams Nursing Surgical Services Director Relationship Specialty Start Date End Date Jah Root MD [address] [place] [address] PCP - General Internal Medicine 01/26/20 05/04/25 Brynn Parmar MD [address] [place] [address] PCP - General Family Medicine 05/05/25 Raquel Santos Psychiatrist Psychiatry 09/09/19 Paige Therapist 05/05/25 Marilu Sheffield Consulting Physician Hematology 09/09/22 Waldo Kerr Consulting Physician Gastroenterology 07/10/24 documented as of this encounter
--- OUTSIDE RECORDS SUMMARY | 2025-08-12 12:52 | XMS_ITS | Clinical Summary ---
Author Organization [facility] Address [address] [facility] [address] [place] [address] Phone Care Team Providers Care Marine Designer Name Role Phone Jah Root MD Primary [...] Medical Devices Not on file Insurance [facility] [employer] [place] [id number] [employer] [place] [id number] [place] [id number] [place] [id number] [place] [id number] [place] [id number] [place] [id number] [facility] C3 ACO Care Teams Marine Designer Relationship Specialty Start Date End Date Jah Root MD [address] [place] [address] PCP - General Internal Medicine 02/08/22 Additional Source Comments The information contained in this document represents components of the legal health record. It is not the complete legal health record.[facility]
--- OUTSIDE RECORDS SUMMARY | 2025-08-12 12:52 | XMS_ITS | Encounter Summary ---
Author Organization [employer] Address [address] [facility] 7t [place] [address] Care Team Providers Care Rn Picu Name Role Phone Jah Root MD Primary Care Prov ider Brynn Parmar MD Primary Care Provider [phone] Reason for Visit * Reason Onset Date Comments Appointment Request 09/15/2024 Encounter Details Date Type Department Care Team (Late st Contact Info) Description 09/15/2024 Telephone [facility] MEDICINE [address] [place] [address] Jah Root MD [address] [place], [place] [phone] Appointment Request Social History Tobacco Use Types [...] documented as of this encounter Care Teams Rn Picu Relationship Specialty Start Date End Date Jah Root MD [address] [place] [address] PCP - General Internal Medicine 01/26/20 05/04/25 Brynn Parmar MD [address] [place] [address] PCP - General Family Medicine 05/05/25 Raquel Santos Psychiatrist Psychiatry 09/09/19 Paige Therapist 05/05/25 Marilu Sheffield Consulting Physician Hematology 09/09/22 Waldo Kerr Consulting Physician Gastroenterology 07/10/24 documented as of this encounter
--- OUTSIDE RECORDS SUMMARY | 2025-08-12 12:52 | XMS_ITS | Encounter Summary ---
Author Organization [employer] Address [address] [facility] 7t [place] [address] Care Team Providers Care Solar Manager Name Role Phone Jah Root MD Primary Care Prov ider Brynn Parmar MD Primary Care Provider [phone] Reason for Visit * Reason Onset Date Comments Results 03/10/2024 Encounter Details Date Type Department Care Team (Late st Contact Info) Description 03/10/2024 Telephone [facility] MEDICINE [address] [place] [address] Jah Root MD [address] [place], [place] [phone] Results Social History Tobacco Use Types Packs/Day [...] when done: Around 2 weeks ago Facility: [facility] Labs * Telephone Encounter - Miguel Davalos - 03/10/2024 10:15 AM EDT TC from pt requesting call back regarding Results. Type of results: Labs Date when done: Around 2 weeks ago Facility: [facility] Labs documented in this encounter Plan of Treatment Not on file documented as of this encounter Visit Diagnoses Not on filedocumented in this encounter Additional Health Concerns Assessment Noted Time PHQ-9 Depression Total Score: 8 10/30/19 24 9:42 AM EST documented as of this encounter Care Teams Solar Manager Relationship Specialty Start Date End Date Jah Root MD [address] [place] [address] PCP - General Internal Medicine 01/26/20 05/04/25 Brynn Parmar MD [address] [place] [address] PCP - General Family Medicine 05/05/25 Raquel Santos Psychiatrist Psychiatry 09/09/19 Paige Therapist 05/05/25 Marilu Sheffield Consulting Physician Hematology 09/09/22 Waldo Kerr Consulting Physician Gastroenterology 07/10/24 documented as of this encounter
--- OUTSIDE RECORDS SUMMARY | 2025-08-12 12:52 | XMS_ITS | Encounter Summary ---
Author Organization [employer] Address [address] [facility] [address] 7t [place] [address] Care Team Providers Care Spanish Moss Picker Name Role Phone Jah Root MD Primary Care Prov ider Brynn Parmar MD Primary Care Provider [phone] Encounter Details Date Type Department Care Team (Late st Contact Info) Description 04/13/2025 Orders Only [facility] MED & PEDS [address] [place], [place] [phone] Provider, MD aLlit Social History Tobacco Use Types Packs/Day Years [...] documented as of this encounter Care Teams Spanish Moss Picker Relationship Specialty Start Date End Date Jah Root MD [address] [place] [address] PCP - General Internal Medicine 01/26/20 05/04/25 Brynn Parmar MD [address] [place] [address] PCP - General Family Medicine 05/05/25 Raquel Santos Psychiatrist Psychiatry 09/09/19 Paige Therapist 05/05/25 Marilu Sheffield Consulting Physician Hematology 09/09/22 Waldo Kerr Consulting Physician Gastroenterology 07/10/24 documented as of this encounter
--- OUTSIDE RECORDS SUMMARY | 2025-08-12 12:52 | XMS_ITS | Encounter Summary ---
Author Organization [employer] Address [address] [facility] 7t [place] [address] Care Team Providers Care Sanding Line Operator Name Role Phone Jah Root MD Primary Care Prov ider Brynn Parmar MD Primary Care Provider [phone] Encounter Details Date Type Department Care Team (Late st Contact Info) Description 11/06/2024 Orders Only [facility] [address] [place] [address] Provider, MD Lalit Social History Tobacco Use [...] documented as of this encounter Care Teams Sanding Line Operator Relationship Specialty Start Date End Date Jah Root MD [address] [place] [address] PCP - General Internal Medicine 01/26/20 05/04/25 Brynn Parmar MD [address] [place] [address] PCP - General Family Medicine 05/05/25 Raquel Santos Psychiatrist Psychiatry 09/09/19 Paige Therapist 05/05/25 Marilu Sheffield Consulting Physician Hematology 09/09/22 Waldo Kerr Consulting Physician Gastroenterology 07/10/24 documented as of this encounter
== END 2025-08-12 11:23 | disposition home or self-care (01) ==
LOC: HO.HWS 10:28
PROVIDERS: Visit Provider Obstetrics & Gynecology
DX: N93.9 Abnormal uterine and vaginal bleeding, unspecified (principal); N63.11 Unspecified lump in the right breast, upper outer quadrant; Z32.02 Encounter for pregnancy test, result negative
CPT/HCPCS: 99203

== ENCOUNTER 2025-08-12 10:28 | Outpatient (REF) | payer OTHER, SELFPAY ==
[2025-08-13 00:39] LABS: CT PCR NOT DETECTED (Not Detect.); NG PCR NOT DETECTED (Not Detect.)
== END 2025-08-12 10:29 | disposition home or self-care (01) ==
LOC: HO.LNP 10:28
PROVIDERS: Visit Provider Obstetrics & Gynecology
DX: N93.9 Abnormal uterine and vaginal bleeding, unspecified (principal); N63.11 Unspecified lump in the right breast, upper outer quadrant; Z20.2 Contact with and (suspected) exposure to infections with a predominantly sexual mode of transmission; Z32.02 Encounter for pregnancy test, result negative
CPT/HCPCS: 81025; 87491; 87591; 99202

== ENCOUNTER 2025-08-12 13:01 | Outpatient (REF) | payer OTHER, SELFPAY ==
[2025-08-12 13:51] LABS: Hematocrit 35.4 % (37.0-47.0); Hemoglobin 11.0 g/dl (12.0-16.0); Mean Corpuscular HGB Conc 31.1 g/dl (31.0-35.0); Mean Corpuscular Hemoglobin 24.1 pg (27.0-33.0); Mean Corpuscular Volume 77.5 fL (80.0-98.0); NRBC Abs Auto 0.000 X10*3/uL (0.0-0.012); NRBC Pct Auto 0.0 /100WBC (0.0-0.2); Platelet Count 338 X10*3/uL (160-400); Red Blood Count 4.57 X10*6/uL (4.20-5.50); White Blood Count 9.1 X10*3/uL (4.8-10.8)
== END 2025-08-12 13:02 | disposition home or self-care (01) ==
LOC: HO.LAB 13:01
PROVIDERS: PCP Family Medicine; Visit Provider Obstetrics & Gynecology
DX: N93.9 Abnormal uterine and vaginal bleeding, unspecified (principal)
CPT/HCPCS: 36415; 84443; 84702; 85027

== ENCOUNTER → 2025-08-17 18:56 | Outpatient (BNV) | payer OTHER, SELFPAY | PROVIDERS: PCP Registered Nurse; Visit Provider Radiology Diagnostic Radiology | DX: D32.0 Benign neoplasm of cerebral meninges (principal) | CPT/HCPCS: 70551 ==

== ENCOUNTER 2025-08-17 19:00 | Outpatient (REF) | payer OTHER, SELFPAY ==
--- NOTE | ~2025-08-17 | MR_ITS ---
EXAMINATION: MR BRAIN WITHOUT CONTRAST CLINICAL INFORMATION: Memory issues. COMPARISON: December 29, 2021. TECHNIQUE: Axial DWI sequence. Axial ADC map. Sagittal T1 sequence. FINDINGS: Limited exam. No restricted diffusion. 12 mm extra-axial isointense T1 lesion in the anterior/frontal left midline interhemispheric falx. Sellar/suprasellar region demonstrated no signal abnormality. Craniocervical junction is intact with normal position of the cerebellar tonsils. Midline structures are intact. MR/MR head/brain wo con IMPRESSION: Limited exam demonstrating no acute ischemia/stroke. Stable left frontal parafalcine meningioma. Electronically signed by: Jose Sherwood MD 08/18/2025 06:45 AM EST
--- OUTSIDE RECORDS SUMMARY | 2025-08-17 06:44 | XMS_ITS | Encounter Summary ---
Author Organization [facility] Address [address] [place] [address] Care Team Providers Care Heel Seat Filler Name Role Phone Brynn Parmar MD Primary Care Provider [phone] Reason for Referral * Imaging (Routine) - Authorized Specialty Diagnoses / Procedures Referred By Contac t Referred To Contact Radiology Diagnoses Unspecified lump in the right breast, upper inner quadrant Procedures MG Mammo Digital Diagnostic w Brynn Abdullahi MD [address] [place] [address] Phone: tel: fax: [address] [address] Phone: tel: Referral ID Status Reason Start Date Expiration Date V isits Requested Visits Authorized [id number] Authorized 07/20/2025 07/20/2026 1 1 Reason for Visit * Imaging (Routine) - Authorized Specialty Diagnoses / Procedures Referred By Contac t Referred To Contact Radiology Diagnoses Unspecified lump in the right breast, upper inner quadrant Procedures MG Mammo Digital Diagnostic w Brynn Abdullahi MD [address] [place] [address] Phone: tel: fax: [address] [address] Phone: tel: Referral ID Status Reason Start Date Expiration Date V isits Requested Visits Authorized [id number] Authorized 07/20/2025 07/20/2026 1 1 Encounter Details Date Type Department Care Team (Latest Contact Info) Description 08/17/2025 6:44 AM EST Hospital [facility] [address] [phone] Unspecified lump in the right breast, upper inner quadrant Social History Tobacco Use Types Packs/Day Years [...] 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 Not on file Not on file documented as of this encounter Last Filed Vital Signs Vital Sign Reading Time Taken Comments Blood Pressure - - Pulse - - Temperature - - Respiratory Rate - - Oxygen Saturation - - Inhaled Oxygen Concentration - - Weight 72.6 kg (160 lb) 08/17/2025 7:28 AM EST Height - - Body Mass Index 28.34 01/28/2025 10:18 AM EDT documented in this encounter Plan of Treatment Upcoming Encounters Date Type Department Care Team (Late st Contact Info) Description 08/19/2025 9:30 AM EST Office Visit [facility] [address] [place], [place] [phone] Brynn Cardona CNM [address] [place] [address] 11/04/2025 9:00 AM EST Office Visit [facility] [address] [place], [place] [phone] Brendan, Brynn, [address] [address] documented as of this encounter Procedures Procedure Name Priority Date/Time Associated Diagnosis Comments MG MAMMO DIGITAL DIAGNOSTIC W IJEOMA BILAT Routine 08/17/2025 8:04 AM EST Unspecified lump in the right breast, upper inner quadrant documented in this encounter Results * MG Mammo Digital Diagnostic w Ijeoma bilat (08/17/2025 8:04 AM EST) Anatomical Region Laterality Modality Breast Bilateral Mammography 08/17/2025 8:03 AM EST Impressions 08/17/2025 8:14 AM EST Stable cluster of cysts in the right breast can be considered benign. No correlate to referring provider's area of concern. Return to routine screening is recommended. Patient was instructed to follow-up with her referring physician. A negative mammogram in the presence of a clinically suspicious palpable abnormality does not preclude the possibility of malignancy or alter the indications for biopsy. BI-RADS CATEGORY: Mammography: 2 - BENIGN Ultrasound: 2 - BENIGN RECOMMENDATIONS: Screening bilateral mammogram is recommended in 1 year. Mammo Location: [facility], [address] [place] [address], [address], . -------- FINAL REPORT -------- Dictated By: Mony Baez Dictated Date: 08/17/2025 08:03 ET Assigned Physician: Mony aBez Reviewed and Electronically Signed By: Mony Baez Signed Date: 08/17/2025 08:14 ET Workstation ID: [id number] Transcribed By: Self Edit Transcribed Date: 08/17/2025 08:06 ET Narrative 08/17/2025 8:14 AM EST CLINICAL: 39 years old, Female, right breast lump at 11 o'clock to felt by patient and 9 o'clock 6 felt by provider. COMPARISON: Multiple prior studies dating back to 2019. FINDINGS: MAMMOGRAPHY TECHNIQUE: Bilateral MLO and CC views were obtained digitally with 3-D mammogram (digital breast tomosynthesis). Computer-aided detection was utilized in evaluation of this exam (CAD). There is no evidence of suspicious mass or architectural distortion. No worrisome calcifications are evident. There has been no significant change from prior exam(s). Stable biopsy marker in the right breast at 12 o'clock. BREAST DENSITY: C - The breasts are heterogeneously dense which may obscure small masses. ULTRASOUND TECHNIQUE: Ultrasound survey evaluation of the right breast was performed. There is a stable 1.3 cluster of cysts at 11 o'clock 2 cm from the nipple. This corresponds to patient's area of concern. Right breast at 9 o'clock 6 cm from the nipple demonstrates normal fibroglandular tissue. No suspicious mass or cyst. Procedure Note Mony Baez MD - 08/17/2025 CLINICAL: 39 years old, Female, right breast lump at 11 o'clock to felt bypatient and 9 o'clock 6 felt by provider. COMPARISON: Multiple prior studies dating back to 2019. FINDINGS: MAMMOGRAPHY TECHNIQUE: Bilateral MLO and CC views were obtained digitally with 3-Dmammogram (digital breast tomosynthesis). Computer-aided detection wasutilized in evaluation of this exam (CAD). There is no evidence of suspicious mass or architectural distortion. Noworrisome calcifications are evident. There has been no significantchange from prior exam(s). Stable biopsy marker in the right breast at12 o'clock. BREAST DENSITY: C - The breasts are heterogeneously dense which mayobscure small masses. ULTRASOUND TECHNIQUE: Ultrasound survey evaluation of the right breast wasperformed. There is a stable 1.3 cluster of cysts at 11 o'clock 2 cm from the nipple.This corresponds to patient's area of concern. Right breast at 9 o'clock 6 cm from the nipple demonstrates normalfibroglandular tissue. No suspicious mass or cyst. IMPRESSION: Stable cluster of cysts in the right breast can be considered benign. Nocorrelate to referring provider's area of concern. Return to routinescreening is recommended. Patient was instructed to follow-up with herreferring physician. A negative mammogram in the presence of a clinically suspicious palpableabnormality does not preclude the possibility of malignancy or alter theindications for biopsy. BI-RADS CATEGORY: Mammography: 2 - BENIGN Ultrasound: 2 - BENIGN RECOMMENDATIONS: Screening bilateral mammogram is recommended in 1 year. Mammo Location: [facility], [address] [place] [address], [address], . -------- FINAL REPORT -------- Dictated By: Mony Baez Dictated Date: 08/17/2025 08:03 ET Assigned Physician: Mony Baez Reviewed and Electronically Signed By: Mony Baez Signed Date: 08/17/2025 08:14 ET Workstation ID: [id number] Transcribed By: Self Edit Transcribed Date: 08/17/2025 08:06 ET us Brynn Parmar MD IMG BI PROCEDURES Final Resul t documented in this encounter Visit Diagnoses Diagnosis Unspecified lump in the right breast, upper inner quadrant documented in this encounter Care Teams Heel Seat Filler Relationship Specialty Start Date End Date Brynn Pamrar MD [address] [place] [address] PCP - General Family Medicine 08/17/25 documented as of this encounter
--- OUTSIDE RECORDS SUMMARY | 2025-08-17 07:43 | XMS_ITS | Encounter Summary ---
Author Organization [facility] Address [address] [place] [address] Care Team Providers Care Spray Drier Operator Helper Name Role Phone Brynn Parmar MD Primary Care Provider [phone] Reason for Referral * Imaging (Routine) - Authorized Specialty Diagnoses / Procedures Referred By Contchristian t Referred To Contact Radiology Diagnoses Unspecified lump in the right breast, upper inner quadrant Procedures US Breast Limited Right Brynn Parmar MD [address] [place] [address] Phone: tel: fax: [address] [address] Phone: tel: Referral ID Status Reason Start Date Expiration Date V isits Requested Visits Authorized [id number] Authorized 07/20/2025 07/20/2026 1 1 Reason for Visit * Imaging (Routine) - Authorized Specialty Diagnoses / Procedures Referred By Contac t Referred To Contact Radiology Diagnoses Unspecified lump in the right breast, upper inner quadrant Procedures US Breast Limited Right Brynn Parmar MD [address] [place] [address] Phone: tel: fax: [address] [address] Phone: tel: Referral ID Status Reason Start Date Expiration Date V isits Requested Visits Authorized [id number] Authorized 07/20/2025 07/20/2026 1 1 Encounter Details Date Type Department Care Team (Latest Contact Info) Description 08/17/2025 7:43 AM EST Hospital Encounter [facility] Ultrasound [address] [place] [phone] Unspecified lump in the right breast, upper [...] 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 Not on file Not on file documented as of this encounter Plan of Treatment Upcoming Encounters Date Type Department Care Team (Late st Contact Info) Description 08/19/2025 9:30 AM EST Office Visit [facility] [address] [place], [place] [phone] Brynn Cardona, DENIA [address] [place] [phone] 11/04/2025 9:00 AM EST Office Visit [facility] [address] [place], [place] [phone] Brynn Cardona, DENIA [address] [place] [phone] documented as of this encounter Procedures Procedure Name Priority Date/Time Associated Diagnosis Comments US BREAST LIMITED RIGHT Routine 08/17/2025 8:01 AM EST Unspecified lump in the right breast, upper inner quadrant documented in this encounter Results * US Breast Limited Right (08/17/2025 8:01 AM EST) Anatomical Region Laterality Modality Breast Right Ultrasound 08/17/2025 8:03 AM EST Impressions 08/17/2025 8:14 [...] year. Mammo Location: [facility], [address] [place] [address], [address], . -------- FINAL REPORT -------- Dictated By: Mony Baez Dictated Date: 08/17/2025 08:03 ET Assigned Physician: Mony Baez Reviewed and Electronically Signed By: Mony Baez Signed Date: 08/17/2025 08:14 ET Workstation ID: [id number] Transcribed By: Self Edit Transcribed Date: 08/17/2025 [...] year. Mammo Location: [facility], [address] [place] [address], [address], . -------- FINAL REPORT -------- Dictated By: Mony Baez Dictated Date: 08/17/2025 08:03 ET Assigned Physician: Mony Baez Reviewed and Electronically Signed By: Mony Baez Signed Date: 08/17/2025 08:14 ET Workstation ID: [id number] Transcribed By: Self Edit Transcribed Date: 08/17/2025 08:06 ET us Brynn Parmar MD IMG US PROCEDURES Final Resul t documented in this encounter Visit Diagnoses Diagnosis Unspecified lump in the right breast, upper inner quadrant documented in this encounter Care Teams Spray Drier Operator Helper Relationship Specialty Start Date End Date Brynn Parmar MD [address] [place] [address] PCP - General Family Medicine 08/17/25 documented as of this encounter
--- OUTSIDE RECORDS SUMMARY | 2025-08-17 23:15 | XMS_ITS | Clinical Summary ---
Author Organization [facility] Address [address] [facility] [address] [place] [address] Phone Care Team Providers Care Non Destructive Testing Scientist Name Role Phone Jah Root MD Primary [...] Medical Devices Not on file Insurance [facility] [employer] [place] [id number] [employer] [place] [id number] [place] [id number] [place] [address] [place] [address] [place] [address] [place] [id number] ACO [facility] C3 ACO Care Teams Non Destructive Testing Scientist Relationship Specialty Start Date End Date Jah Root MD [address] [place] [address] PCP - General Internal Medicine 02/08/22 Additional Source Comments The information contained in this document represents components of the legal health record. It is not the complete legal health record.[facility]
--- OUTSIDE RECORDS SUMMARY | 2025-08-17 23:15 | XMS_ITS | Clinical Summary ---
Author Organization [employer] [facility] Prior to 02/06/25 Address [address] [place] [address] Care Team Providers Care Medical Clinic Manager Name Role Phone Jah Cobian MD Primary Care Provider [phone] Allergies No known active allergies Medications Medication [...] to complete this topic Care Teams Medical Clinic Manager Relationship Specialty Start Date End Date Jah Cobian MD [address] [place] [phone] PCP - General Internal Medicine 04/29/24
--- OUTSIDE RECORDS SUMMARY | 2025-08-17 23:15 | XMS_ITS | Clinical Summary ---
Author Organization [facility] Address [address] [place] [address] Phone Care Team Providers Care Hide Measuring Machine Operator Name Role Phone Brynn Parmar MD Primary Care Provider [phone] Allergies No known active allergies Medications cholecalciferol [...] Problem Noted Date Diagnosed Date Cerebral meningioma 01/14/2025 Assessment & Plan (01/14/2025 3:58 PM [...] Encounters Date Type Department Care Team Description 08/17/2025 7:43 AM EST Hospital Encounter [facility] [place] [facility] Ultrasound [address] [place] [phone] Unspecified lump in the right breast, upper inner quadrant 08/17/2025 6:44 AM EST Hospital Encounter [facility] [place] [facility] [address] [place] [address] Unspecified lump in the right breast, upper inner quadrant 07/21/2025 Telephone Obstetrics [facility]necology - [address] [place] [address] Brynn Carodna CNM from Last 3 Months Surgical History Surgery Date Site/Laterality Comments TONSILLECTOMY ADENOIDECTOMY, BILATERAL MYRINGOTOMY AND TUBES PROCEDURE: [place] TONSILLECTOMY & ADENOIDECTOMY <AGE 11 UTERINE FIBROID SURGERY 09/09/2021 - 09/08/2022 N/A CHOLECYSTECTOMY STEREOTACTIC CORE BIOPSY Medical History Medical History Date Comments Anxiety [...] 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 file Not on file Obstetrics History Para Term AB IAB SAB Ectopic Multiple Livin g Live Births 3 3 3 3 3 Date Outcome GA Total Labor Labor/2nd/3rd Weight Sex Type Anes PTL Gemma A1 A5 Name Clin 004 Term 40w 0d 3912 g (138 oz) M Vag-S pont Epidur al N Livin g Complications:None Delivery Location:[facility] 007 Term 40w 0d 3912 g (138 oz) M Vag-S pont None N Livin g Complications:None Delivery Location:[facility] 016 Term 40w 0d 3175 g (112 oz) M Vag-S pont Epidur al N Livin g Complications:None Delivery Location:[facility] Last Filed Vital Signs Vital Sign Reading Time Taken Comments Blood Pressure 120/80 03/02/2025 10:56 AM EDT Pulse 88 03/02/2025 10:56 AM EDT Temperature 36.4 C (97.6 F) 08/26/2024 2:55 PM EST Respiratory Rate 15 08/26/2024 3:56 PM EST Oxygen Saturation 98% 01/28/2025 10:18 AM EDT Inhaled Oxygen Concentration - - Weight 72.6 kg (160 lb) 08/17/2025 7:28 AM EST Height 160 cm (5' 3 ) 01/28/2025 10:18 AM EDT Body Mass Index 28.34 01/28/2025 10:18 AM EDT Plan of Treatment Upcoming Encounters Date Type Department Care Team (Late st Contact Info) Description 08/19/2025 9:30 AM EST Office Visit Obstetrics and Gynecology - [address] [phone] Brynn Cardona, DENIA [address] [place] [address] 11/04/2025 9:00 AM EST Office Visit Obstetrics and Gynecology - [address] [phone] Brynn Cardona, DENIA [address] [place] [address] Health Maintenance Due Date Last [...] 6, 05/30/2015, 07/28/2012 Breast Cancer Screening 08/25/2026 08/17/2025, 08/25 Cervical Cancer Screening: HPV 07/10/2028 07/10/2023 Cholesterol [...] in the right breast, upper inner quadrant US BREAST LIMITED RIGHT Routine 08/17/2025 8:01 AM EST Unspecified lump in the right breast, upper inner quadrant HEPATITIS C ANTIBODY Routine 08/20/2024 2:45 PM EST Encounter for well woman exam with routine gynecological exam Screen for STD (sexually transmitted disease) HM HPV Routine 07/10/2023 from Last 3 Months or Most Recently Relevant to Health Maintenance Results * MG Mammo Digital Diagnostic w [...] year. Mammo Location: [facility] [place] [facility], [address] [place] [address], [id number], . -------- FINAL REPORT -------- Dictated By: Mony Baez Dictated Date: 08/17/2025 08:03 ET Assigned Physician: Mony Baez Reviewed and Electronically Signed By: Mony Baez Signed Date: 08/17/2025 08:14 ET Workstation ID: [id number] Transcribed By: Self Edit Transcribed Date: 08/17/2025 [...] year. Mammo Location: [facility], [address] [place] [address], [id number], . -------- FINAL REPORT -------- Dictated By: Mony Baez Dictated Date: 08/17/2025 08:03 ET Assigned Physician: Mony Baez Reviewed and Electronically Signed By: Mony Baez Signed Date: 08/17/2025 08:14 ET Workstation ID: [id number] Transcribed By: Self Edit Transcribed Date: 08/17/2025 08:06 ET us Brynn Parmar MD IMG BI PROCEDURES Final Resul t * US Breast Limited Right (08/17/2025 8:01 [...] year. Mammo Location: [facility] [place] [facility], [address] [place] [address], [id number], . -------- FINAL REPORT -------- Dictated By: Mony Baez Dictated Date: 08/17/2025 08:03 ET Assigned Physician: Mony Baez Reviewed and Electronically Signed By: Mony Baez Signed Date: 08/17/2025 08:14 ET Workstation ID: [id number] Transcribed By: Self Edit Transcribed Date: 08/17/2025 [...] year. Mammo Location: [facility], [address] [place] [address], [id number], . -------- FINAL REPORT -------- Dictated By: Mony Baez Dictated Date: 08/17/2025 08:03 ET Assigned Physician: Mony Baez Reviewed and Electronically Signed By: Mony Baez Signed Date: 08/17/2025 08:14 ET Workstation ID: [id number] Transcribed By: Self Edit Transcribed Date: 08/17/2025 08:06 ET us Brynn Parmar MD [facility] PROCEDURES Final Resul t * Hepatitis C antibody (08/20/2024 2:45 PM EST) Hepatitis C Antibody Negative Negative LAB CHEMISTRY METHOD 08/20/2024 5:07 PM EST [facility] Blood Venous blood specimen / Unknown Venipuncture / Unknown 08/20/2024 2:45 PM EST 08/20/2024 3:46 PM EST Germaine Robles CN LAB BLOOD ORDERABLES Final Re sult [facility] [address] [place] [address], [place] [phone] * Cervical Cancer Screening: HPV (07/10/2023) Cervical Cancer Screening: HPV No interpreta tion,abstr acted Historical Provider HEALTH MAINTENANCE Final Result from Last 3 Months or Most Recently Relevant to Health Maintenance Insurance [facility] Care Teams Hide Measuring Machine Operator Relationship Specialty Start Date End Date Brynn Parmar MD [address] [place] [id number] PCP - General Family Medicine 08/17/25
--- OUTSIDE RECORDS SUMMARY | 2025-08-17 23:15 | XMS_ITS | Encounter Summary ---
Author Organization [facility] Address [address] [place] [phone] Phone Care Team Providers Care Fireproof Door Assembler Name Role Phone Jah Root MD Primary Care Prov ider Encounter Details Date Type Department Care Team (Late st Contact Info) Description 04/30/2024 Procedure Pass [facility] Endoscopy Department [address] [place] [phone] Social History Tobacco Use Types Packs/Day Years [...] on filedocumented in this encounter Care Teams Fireproof Door Assembler Relationship Specialty Start Date End Date Jah Root MD [address] [place] [address] PCP - General Internal Medicine 02/08/22 documented as of this encounter Additional Source Comments The information contained in this document represents components of the legal health record. It is not the complete legal health record.[facility]
== END 2025-08-17 19:01 | disposition home or self-care (01) ==
LOC: HO.MRI 19:00
PROVIDERS: PCP Registered Nurse; Visit Provider Registered Nurse
DX: R41.3 Other amnesia (principal); N93.9 Abnormal uterine and vaginal bleeding, unspecified; D64.9 Anemia, unspecified; R74.01 Elevation of levels of liver transaminase levels; Z28.39 Other underimmunization status
CPT/HCPCS: 70551